=== PATIENT | female | born 1985 | race Caucasian/White ===

== ENCOUNTER 2017-09-14 10:08 | Emergency (ER) | payer OTHER ==
[2017-09-14] MEDS ORDERED: ALBUTEROL 2.5 MG/3 ML NEB SOL ONE (10:42)
[2017-09-14] MEDS ORDERED: IPRATROPIUM BROM 0.5MG/2.5ML ONE (10:43)
--- NOTE | 2017-09-14 11:10 | EKG ---
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
--- NOTE | 2017-09-14 11:47 | RAD REPORT ---
EXAM DESCRIPTION: RAD - Chest Pa And Lat (2 Views) - 09/14/2017 11:38 am CLINICAL HISTORY: COUGH Chest pain. COMPARISON: Chest Pa And Lat (2 Views) dated 04/04/2017; Chest Pa And Lat (2 Views) dated 03/31/2017; C hest Pa And Lat (2 Views) dated 08/20/2016; Chest Pa And Lat (2 Views) dated 05/29/2016 FINDINGS: The lungs are clear. The heart is normal in size. No displaced fractures. Mild thoracic sc oliosis. IMPRESSION: No acute finding suspected.
--- NOTE | 2017-09-14 11:58 | EDPHYS ---
Physician Documentation [facility] Name: Jenn Horan Age: 32 yrs Sex: Female : 1985 Arrival Date: 09/14/2017 Time: 10:10 Bed 20 Private MD: out of town, doctor ED Physician Yonny Dooley HPI: 09/14 10:46 This 32 yrs old Female presents to ER via Ambulatory with complaints of jr8 Congestion, Asthma Exacerbation. 10:46 The patient or guardian reports cough, that is intermittent, described as mild, with no jr8 sputum, difficulty breathing. Onset: The symptoms/episode began/occurred gradually, 1 week(s) ago. Severity of symptoms: At their worst the symptoms were mild, in the emergency department the symptoms are unchanged. Modifying factors: The symptoms are alleviated by nothing, the symptoms are aggravated by nothing. Associated signs and symptoms: Pertinent positives: chest pain, with cough, rhinorrhea, sore throat. It is unknown whether or not the patient has had similar symptoms in the past. The patient has not recently seen a physician. Has tried multiple OTC medications without relief . 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 - Social history:: Smoking status: Patient/guardian denies using tobacco. - Ebola Screening: : No symptoms or risks identified at this time. ROS: 10:46 Eyes: Negative for injury, pain, redness, and discharge, Neck: Negative for injury, jr8 pain, and swelling, Cardiovascular: Negative for chest pain, palpitations, and edema, Abdomen/GI: Negative for abdominal pain, nausea, vomiting, diarrhea, and constipation, Back: Negative for injury and pain, MS/Extremity: Negative for injury and deformity, Skin: Negative for injury, rash, and discoloration, Neuro: Negative for headache, weakness, numbness, tingling, and seizure. 10:46 ENT: Positive for rhinorrhea, sinus congestion, sore throat, Negative for drainage from ear(s), ear pain, nasal discharge, difficulty swallowing, difficulty handling secretions, hoarseness. 10:46 Respiratory: Positive for cough, wheezing, Negative for hemoptysis, orthopnea, pleurisy. Exam: 10:46 Eyes: Pupils equal round and reactive to light, extra-ocular motions intact. Lids and jr8 lashes normal. Conjunctiva and sclera are non-icteric and not injected. Cornea within normal limits. Periorbital areas with no swelling, redness, or edema. ENT: Nares patent. No nasal discharge, no septal abnormalities noted. Tympanic membranes are normal and external auditory canals are clear. Oropharynx with no redness, swelling, or masses, exudates, or evidence of obstruction, uvula midline. Mucous membranes moist. Neck: Trachea midline, no thyromegaly or masses palpated, and no cervical lymphadenopathy. Supple, full range of motion without nuchal rigidity, or vertebral point tenderness. No Meningismus. Cardiovascular: Regular rate and rhythm with a normal S1 and S2. No gallops, murmurs, or rubs. Normal PMI, no JVD. No pulse deficits. Abdomen/GI: Soft, non-tender, with normal bowel sounds. No distension or tympany. No guarding or rebound. No evidence of tenderness throughout. Back: No spinal tenderness. No costovertebral tenderness. Full range of motion. Skin: Warm, dry with normal turgor. Normal color with no rashes, no lesions, and no evidence of cellulitis. MS/ Extremity: Pulses equal, no cyanosis. Neurovascular intact. Full, normal range of motion. Neuro: Awake and alert, GCS 15, oriented to person, place, time, and situation. Cranial nerves II-XII grossly intact. Motor strength 5/5 in all extremities. Sensory grossly intact. Cerebellar exam normal. Normal gait. 10:46 Respiratory: the patient does not display signs of respiratory distress, Respirations: normal, symetrical, no use of accessory muscles, no grunting, no evidence of nasal flaring, no prolonged exhalations, no pursed lip breathing, no retractions, no shallow respirations, no splinting, no tachypnea, Breath sounds: rhonchi, that are mild, are heard diffusely. Vital Signs: 10:15 BP 108 / 82; Pulse 106; Resp 18; Temp 98.2(O); Pulse Ox 98% ; Weight 92.99 kg; Height 5 sv ft. 8 in. (172.72 cm); 10:15 Body Mass Index 31.17 (92.99 kg, 172.72 cm) sv MDM: 10:19 Patient medically screened. jr8 11:56 Data reviewed: vital signs, nurses notes, EKG, radiologic studies, plain films, and as jr8 a result, I will discharge patient. Data interpreted: Pulse oximetry: on room air is 98 %. Interpretation: normal. Counseling: I had a detailed discussion with the patient and/or guardian regarding: the historical points, exam findings, and any diagnostic results supporting the discharge/admit diagnosis, radiology results, the need for outpatient follow up, a family practitioner, to return to the emergency department if symptoms worsen or persist or if there are any questions or concerns that arise at home. Response to treatment: the patient's symptoms have markedly improved after treatment. ED course: Patient with chronic asthma. Has been trying to get over bronchitis for over a week now. Will prescribe atrovent to add to her albuterol along with steroids and antibiotics . 09/14 10:32 Order name: XRAY Chest Pa And Lat (2 Views); Complete Time: 11:50 sg 09/14 10:32 Order name: EKG - Nurse/Tech; Complete Time: 10:44 sg 09/14 10:32 Order name: EKG; Complete Time: 10:32 sg Administered Medications: 10:44 Drug: Albuterol - atroVENT (3:1) (2.5 mg - 0.5 mg) 3 ml Route: Nebulizer; sg 11:20 Follow up: Response: No adverse reaction iw Disposition: 16:35 Co-signature as Attending Physician, Yonny Dooley MD. Chart complete. Chart complete. rn Disposition: 09/14/17 11:57 Discharged to Home. Impression: Acute bronchitis. - Condition is Stable. - Discharge Instructions: Acute Bronchitis. - Prescriptions for ipratropium- albuterol 0.5 mg-3 mg(2.5 mg base)/3 mL Inhalation solution for nebulization - inhale 3 milliliter by NEBULIZATION route 4 times per day; 1 box. Levaquin 500 mg Oral Tablet - take 1 tablet by ORAL route once daily for 7 days; 7 tablet. Prednisone 20 mg Oral Tablet - take 1 tablet by ORAL route once daily for 5 days; 5 tablet. - Medication Reconciliation Form, Thank You Letter, Antibiotic Education, Prescription Opioid Use form. - Follow up: Private Physician; When: 5 - 6 days; Reason: Recheck today's complaints, Continuance of care, Re-evaluation by your physician. - Problem is new. - Symptoms have improved. Signatures: Dispatcher [employer] EDHelene Mixon RN RN sv Gay, Steven, RN RN sg Williams, Irene, RN RN iw Nieto, Roman, MD MD rn Roszak, Josh, PA PA jr8 Corrections: (The following items were deleted from the chart) 12:22 11:57 09/14/2017 11:57 Discharged to Home. Impression: Acute bronchitis. Condition is iw Stable. Forms are Medication Reconciliation Form, Thank You Letter, Antibiotic Education, Prescription Opioid Use. Follow up: Private Physician; When: 5 - 6 days; Reason: Recheck today's complaints, Continuance of care, Re-evaluation by your physician. Problem is new. Symptoms have improved. jr8
--- NOTE | 2017-09-14 11:58 | ER ---
Nurse's Notes [facility] Name: Jenn Horan Age: 32 yrs Sex: Female : 1985 Arrival Date: 09/14/2017 Time: 10:10 Bed 20 Private MD: out of town, doctor Diagnosis: Acute bronchitis Presentation: 09/14 10:13 Presenting complaint: Mother states: sore throat started last week and started having sv congestion. Mother was treating with OTC med and not improving. Bilateral chest pain stated. c/o cough. Denies fever. Transition of care: patient was not received from another setting of care. Onset of symptoms was September 14, 2017. Risk Assessment: Do you want to hurt yourself or someone else? Patient reports no desire to harm self or others. Care prior to arrival: None. 10:13 Method Of Arrival: Ambulatory sv 10:13 Acuity: SVETLANA 3 sv 12:15 Initial Sepsis Screen: Does the patient meet any 2 criteria? No. Patient's initial iw sepsis screen is negative. Does the patient have a suspected source of infection? No. Patient's initial sepsis screen is negative. Triage Assessment: 12:15 General: Appears in no apparent distress. Behavior is calm, cooperative. Respiratory: iw Breath sounds are clear bilaterally. 12:15 Pain: Denies pain. iw PROTECTION MGR: 10:15 LMP N/A - Irregular menses sv Historical: - Allergies: 10:15 Biaxin; sv 10:15 Cefaclor; sv 10:15 hydromorphone HCl; sv 10:15 meperidine HCl; sv 10:15 Morphine; sv 10:15 NSAIDS (Non-Steroidal Anti-Inflammatory Drug); sv 10:15 PENICILLINS; sv - PMHx: 10:15 Asthma; Cerebral Palsy; Erythromyalgia; GERD; Hearing Loss; Incomplete R BBB; reactive sv airway; - PSHx: 10:15 Lobectomy; Appendectomy; Cholecystectomy; ovarian tumor surgery; Tonsillectomy; sv Adenoids; - Immunization history:: Adult Immunizations up to date. - Social history:: Smoking status: Patient/guardian denies using tobacco. - Ebola Screening: : No symptoms or risks identified at this time. Screenin:14 Abuse screen: Denies threats or abuse. Denies injuries from another. Nutritional iw screening: No deficits noted. Tuberculosis screening: No symptoms or risk factors identified. Fall Risk None identified. Assessment: 12:14 Reassessment: Patient appears in no apparent distress at this time. Patient and/or iw family updated on plan of care and expected duration. Pain level reassessed. Patient is alert, oriented x 3, equal unlabored respirations, skin warm/dry/pink. Patient states symptoms have improved. 12:15 Cardiovascular: Patient's skin is warm and dry. iw Vital Signs: 10:15 BP 108 / 82; Pulse 106; Resp 18; Temp 98.2(O); Pulse Ox 98% ; Weight 92.99 kg; Height 5 sv ft. 8 in. (172.72 cm); 10:15 Body Mass Index 31.17 (92.99 kg, 172.72 cm) sv ED Course: 10:10 Patient arrived in ED. mr 10:10 out of town, doctor is Private Physician. mr 10:14 Triage completed. sv 10:17 Arm band placed on right wrist. sv 10:19 Leonel Novak PA is PHCP. jr8 10:19 Yonny Dooley MD is Attending Physician. jr8 10:22 Zen Lowery, ELENA is Primary Nurse. sg 10:47 EKG done, by sound effects technician. reviewed by Leonel NEW. at1 11:33 X-ray completed. Patient tolerated procedure well. Patient moved back from radiology. ml 11:38 XRAY Chest Pa And Lat (2 Views) In Process Unspecified. EDMS 12:15 Patient has correct armband on for positive identification. iw 12:15 No provider procedures requiring assistance completed. Patient did not have IV access iw during this emergency room visit. Administered Medications: 10:44 Drug: Albuterol - atroVENT (3:1) (2.5 mg - 0.5 mg) 3 ml Route: Nebulizer; sg 11:20 Follow up: Response: No adverse reaction iw Outcome: 11:57 Discharge ordered by . jr8 12:14 Discharged to home ambulatory, with family. iw 12:14 Condition: good 12:14 Discharge instructions given to family, Instructed on discharge instructions, follow up and referral plans. medication usage, Demonstrated understanding of instructions, follow-up care, medications, Prescriptions given X 3. 12:22 Patient left the ED. iw Signatures: Dispatcher MedThe [facility] Helene Barrera RN RN Zen Mills, RN RN sg Gavin, Katina mr Isai, Mary, RN ELENA Rowley, Leonel Lee PA PA [facility] Amina blandon, [facility] EK Tat1
[2017-09-14 12:26] VITALS: BP 108/82; TEMP 98.2; O2SAT 98
== END 2017-09-14 12:22 | disposition home or self-care (01) ==
LOC: ER 10:08
DX: J45.909 Unspecified asthma, uncomplicated (principal); Z88.0 Allergy status to penicillin; Z88.5 Allergy status to narcotic agent; Z88.6 Allergy status to analgesic agent; Z88.8 Allergy status to other drugs, medicaments and biological substances
CPT/HCPCS: 71046; 93005; 94640; 99284

== ENCOUNTER 2017-11-04 10:43 | Emergency (ER) | payer OTHER ==
--- NOTE | 2017-11-04 12:09 | ER ---
Nurse's Notes [facility] Name: Jenn Horan Age: 32 yrs Sex: Female : 1985 Arrival Date: 11/04/2017 Time: 10:45 Bed 8 Private MD: out of town, doctor Diagnosis: Cellulitis of the right lower leg Presentation: 11/04 11:00 Presenting complaint: Patient states: Right lower leg pain and swelling x 3 days. hb Denies fever. Transition of care: patient was not received from another setting of care. Onset of symptoms was November 02, 2017. Risk Assessment: Do you want to hurt yourself or someone else? Patient reports no desire to harm self or others. Care prior to arrival: None. 11:00 Method Of Arrival: Wheelchair hb 11:00 Acuity: SVETLANA 3 hb 11:10 Initial Sepsis Screen: Does the patient meet any 2 criteria? No. Patient's initial sv sepsis screen is negative. Does the patient have a suspected source of infection? No. Patient's initial sepsis screen is negative. Historical: - Allergies: 11:01 Biaxin; hb 11:01 Cefaclor; hb 11:01 hydromorphone HCl; hb 11:01 meperidine HCl; hb 11:01 Morphine; hb 11:01 NSAIDS (Non-Steroidal Anti-Inflammatory Drug); hb 11:01 PENICILLINS; hb - PMHx: 11:01 Asthma; Cerebral Palsy; Erythromyalgia; GERD; Hearing Loss; Incomplete R BBB; reactive hb airway; 11:08 Erythromelalgia; hb - PSHx: 11:01 Lobectomy; Appendectomy; Cholecystectomy; ovarian tumor surgery; hb - Immunization history:: Adult Immunizations up to date. - Social history:: Smoking status: Patient/guardian denies using tobacco. - Ebola Screening: : No symptoms or risks identified at this time. Screenin:02 Abuse screen: Denies threats or abuse. Denies injuries from another. Nutritional hb screening: No deficits noted. Tuberculosis screening: No symptoms or risk factors identified. Fall Risk Total Mckeon Fall Scale indicates Low Risk Score (25-44 pts). Fall prevention measures have been instituted. Side Rails Up X 2 Frequent Obs/Assesments occuring Family Present and informed to notify staff if they need to leave bedside As available Patient and Family Educated on Fall Prevention Program and strategies. Assessment: 11:10 General: Appears in no apparent distress. uncomfortable, well developed, Behavior is sv calm, cooperative, appropriate for age. Pain: Complains of pain in right leg Pain currently is 7 out of 10 on a pain scale. Neuro: Level of Consciousness is awake, alert, obeys commands, Oriented to person, place, time, situation, Moves all extremities. Full function. Respiratory: Respiratory effort is even, unlabored, Respiratory pattern is regular, symmetrical. Derm: Skin is pink, warm \T\ dry. Musculoskeletal: Range of motion: intact in all extremities, Swelling present in right leg. 12:29 Reassessment: Patient appears in no apparent distress at this time. No changes from sv previously documented assessment. Patient and/or family updated on plan of care and expected duration. Pain level reassessed. Patient is alert, oriented x 3, equal unlabored respirations, skin warm/dry/pink. Vital Signs: 11:00 BP 128 / 75; Pulse 68; Resp 15; Temp 98.2; Pulse Ox 100% on R/A; Pain 7/10; hb ED Course: 10:45 Patient arrived in ED. sb2 10:45 out of town, doctor is Private Physician. sb2 10:54 Ashok Brito PA is PHCP. jmm 10:54 Yonny Dooley MD is Attending Physician. m 11:00 Triage completed. hb 11:01 Arm band placed on right wrist. hb 11:07 Helene Barrera, RN is Primary Nurse. sv 11:07 Patient has correct armband on for positive identification. Bed in low position. Adult sv w/ patient. 12:18 Extremity Venous Uni Ltd US In Process Unspecified. EDMS 12:18 Ultrasound completed. Patient tolerated well. sg3 12:29 No provider procedures requiring assistance completed. Patient did not have IV access sv during this emergency room visit. Administered Medications: No medications were administered Outcome: 12:09 Discharge ordered by . jm 12:32 Discharged to home via wheelchair, with family. sv 12:32 Condition: stable 12:32 Discharge instructions given to patient, family, Instructed on discharge instructions, follow up and referral plans. medication usage, Demonstrated understanding of instructions, follow-up care, medications, Prescriptions given X 1. 12:32 Patient left the ED. sv Signatures: Dispatcher [employer] EDMS Holly, Helene, RN RN Ashok Hairston PA PA jmm Baxter, Heather, ELENA RN Ashley Ross 3 Jackelyn Gutierrez 2
--- NOTE | 2017-11-04 12:09 | EDPHYS ---
Physician Documentation [facility] Name: Jenn Horan Age: 32 yrs Sex: Female : 1985 Arrival Date: 11/04/2017 Time: 10:45 Bed 8 Private MD: out of town, doctor ED Physician Yonny Dooley HPI: 11/04 11:14 This 32 yrs old Female presents to ER via Wheelchair with complaints of Leg jmm Swelling, Leg Pain. 11:14 The patient presents with pain, that is acute, swelling. The complaints affect the jmm posterior aspect of right knee, right calf and right Achilles. Onset: The symptoms/episode began/occurred today. This is a 32 year old female with a history of asthma, cerebral palsy, erythromyalgia, that presents to the ED with right lower leg pain and swelling. Mother states the patient elevated her leg which relieved symptoms. Patient is currently taking plavix. Denies fever or shortness of breath. Historical: - Allergies: 11:01 Biaxin; hb 11:01 Cefaclor; hb 11:01 hydromorphone HCl; hb 11:01 meperidine HCl; hb 11:01 Morphine; hb 11:01 NSAIDS (Non-Steroidal Anti-Inflammatory Drug); hb 11:01 PENICILLINS; hb - PMHx: 11:01 Asthma; Cerebral Palsy; Erythromyalgia; GERD; Hearing Loss; Incomplete R BBB; reactive hb airway; 11:08 Erythromelalgia; hb - PSHx: 11:01 Lobectomy; Appendectomy; Cholecystectomy; ovarian tumor surgery; hb - Immunization history:: Adult Immunizations up to date. - Social history:: Smoking status: Patient/guardian denies using tobacco. - Ebola Screening: : No symptoms or risks identified at this time. ROS: 11:14 Constitutional: Negative for fever, chills, and weight loss, Cardiovascular: Negative jmm for chest pain, palpitations, and edema, Respiratory: Negative for shortness of breath, cough, wheezing, and pleuritic chest pain. 11:14 MS/extremity: Positive for swelling. 11:14 Skin: Positive for swelling. 11:14 All other systems are negative. Exam: 11:14 Head/Face: atraumatic. Chest/axilla: Normal chest wall appearance and motion. jmm Cardiovascular: Regular rate and rhythm. No edema appreciated Respiratory: Normal respirations, no respiratory distress appreciated 11:14 Constitutional: The patient appears in no acute distress, alert, awake. 11:14 Musculoskeletal/extremity: swelling noted to the right and left lower legs bilaterally. full dorsalis pulse appreciate, compartments are soft, NVI. 11:14 Skin: mild erythema noted to the right lower leg. 11:14 Neuro: Orientation: is normal, Mentation: is normal, Memory: is normal. 11:14 Psych: Behavior/mood is pleasant, cooperative. Vital Signs: 11:00 BP 128 / 75; Pulse 68; Resp 15; Temp 98.2; Pulse Ox 100% on R/A; Pain 7/10; hb MDM: 11:03 Patient medically screened. warner 12:08 Data reviewed: vital signs, nurses notes, radiologic studies, ultrasound. Data warner reviewed: radiologic studies. Counseling: I had a detailed discussion with the patient and/or guardian regarding: the historical points, exam findings, and any diagnostic results supporting the discharge/admit diagnosis, radiology results, the need for outpatient follow up, to return to the emergency department if symptoms worsen or persist or if there are any questions or concerns that arise at home. 12:08 ED course: Due to swelling with erythema, symptoms are concerning for cellulitis. warner Patient put on oral outpatient antibiotics. Mother given strict return precautions. Mother understood and agrees with the plan of care. . 08 11:04 Order name: Extremity Venous Uni Ltd [facility] Administered Medications: No medications were administered Disposition: 14:39 Co-signature as Attending Physician, Yonny Dooley MD. rn Disposition: 11/04/17 12:09 Discharged to Home. Impression: Cellulitis of the right lower leg. - Condition is Stable. - Discharge Instructions: Cellulitis, Adult. - Prescriptions for Bactrim DS 800- 160 mg Oral Tablet - take 1 tablet by ORAL route every 12 hours for 7 days; 14 tablet. - Medication Reconciliation Form, Thank You Letter, Antibiotic Education, Prescription Opioid Use form. - Follow up: Private Physician; When: 2 - 3 days; Reason: Recheck today's complaints, Continuance of care, Re-evaluation by your physician. Signatures: Dispatcher [employer] Helene Aj RN RN sv Mickail, Joel, PA PA jmm Nieto, Roman, MD MD rn Baxter, Heather, RN RN Corrections: (The following items were deleted from the chart) 12:32 12:09 11/04/2017 12:09 Discharged to Home. Impression: Cellulitis of the right lower sv leg. Condition is Stable. Forms are Medication Reconciliation Form, Thank You Letter, Antibiotic Education, Prescription Opioid Use. Follow up: Private Physician; When: 2 - 3 days; Reason: Recheck today's complaints, Continuance of care, Re-evaluation by your physician. warner
[2017-11-04 12:37] VITALS: BP 128/75; TEMP 98.2; O2SAT 100
--- NOTE | 2017-11-04 12:44 | RAD REPORT ---
EXAM DESCRIPTION: VAS - Extremity Venous Uni Ltd - 11/04/2017 12:18 pm CLINICAL HISTORY: Right lower extremity pain COMPARISON: None. TECHNIQUE: Real-time sonographic evaluation of the right lower extremity deep venous systems was per formed. FINDINGS: Normal compressibility, flow augmentation, phasic flow and spontaneous flow are identified in the right lower extremity common femoral, superficial femoral, popliteal and posterior tibial vei ns. No intraluminal filling defects seen. IMPRESSION: No DVT in the right lower extremity.
== END 2017-11-04 12:32 | disposition home or self-care (01) ==
LOC: ER 10:43
DX: L03.115 Cellulitis of right lower limb (principal); G80.9 Cerebral palsy, unspecified; Z88.0 Allergy status to penicillin; Z88.1 Allergy status to other antibiotic agents; Z88.5 Allergy status to narcotic agent; Z88.6 Allergy status to analgesic agent; Z88.8 Allergy status to other drugs, medicaments and biological substances
CPT/HCPCS: 93971; 99283

== ENCOUNTER 2018-03-29 17:25 | Emergency (ER) | payer OTHER ==
--- NOTE | 2018-03-29 20:47 | ER ---
Nurse's Notes [facility] Name: Jenn Horan Age: 33 yrs Sex: Female : 1985 Arrival Date: 03/29/2018 Time: 17:26 Bed 12 Private MD: out of town, doctor Diagnosis: Sinusitis Presentation: 03/29 17:37 Presenting complaint: Mother states: she had a cold for a week now, nasal congestion, hj denies fever; denies N/V; reports headache;. Transition of care: patient was not received from another setting of care. Resp Distress? No respiratory distress is noted at this time. Onset of symptoms was March 29, 2018. Risk Assessment: Do you want to hurt yourself or someone else? Patient reports no desire to harm self or others. Initial Sepsis Screen: Does the patient meet any 2 criteria? No. Patient's initial sepsis screen is negative. Does the patient have a suspected source of infection? No. Patient's initial sepsis screen is negative. Care prior to arrival: None. 17:37 Method Of Arrival: Ambulatory 17:37 Acuity: SVETLANA 4 hj Triage Assessment: 17:40 General: Appears in no apparent distress. uncomfortable, Behavior is calm, cooperative, hj appropriate for age. Pain: Complains of pain in head. 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 Historical: - Allergies: 17:40 Biaxin; hj 17:40 Cefaclor; hj 17:40 hydromorphone HCl; hj 17:40 meperidine HCl; hj 17:40 Morphine; hj 17:40 NSAIDS (Non-Steroidal Anti-Inflammatory Drug); hj 17:40 PENICILLINS; hj - Home Meds: 17:40 Abilify Oral [Active]; Miralax Oral [Active]; Plavix Oral [Active]; Prozac Oral hj [Active]; - PMHx: 17:40 Asthma; Cerebral Palsy; Erythromelalgia; GERD; Hearing Loss; Incomplete R BBB; reactive hj airway; - PSHx: 17:40 part of right lung removed; Adenoids; Tonsillectomy; tumor removed from ovary; hj Cholecystectomy; Appendectomy; - Immunization history:: Adult Immunizations up to date. - Social history:: Smoking status: Patient/guardian denies using tobacco, Patient/guardian denies using alcohol. - Ebola Screening: : Patient negative for fever greater than or equal to 101.5 degrees Fahrenheit, and additional compatible Ebola Virus Disease symptoms Patient denies exposure to infectious person Patient denies travel to an Ebola-affected area in the 21 days before illness onset. Screenin:40 Abuse screen: Denies threats or abuse. Denies injuries from another. Nutritional hj screening: No deficits noted. Tuberculosis screening: No symptoms or risk factors identified. Fall Risk None identified. Assessment: 17:40 Cardiovascular: Capillary refill < 3 seconds Patient's skin is warm and dry. hj 20:55 General: Appears in no apparent distress. comfortable, Behavior is calm, cooperative, aj1 appropriate for age. Pain: Complains of pain in face. Neuro: Level of Consciousness is awake, alert, obeys commands, Oriented to person, place, time, situation. Cardiovascular: Patient's skin is warm and dry. Respiratory: Airway is patent Respiratory effort is even, unlabored, Respiratory pattern is regular, symmetrical, Breath sounds are clear bilaterally. GI: No signs and/or symptoms were reported involving the gastrointestinal system. : No signs and/or symptoms were reported regarding the genitourinary system. EENT: Reports nasal congestion nasal discharge. Derm: No signs and/or symptoms reported regarding the dermatologic system. Skin is pink, warm \T\ dry. normal. Musculoskeletal: No signs and/or symptoms reported regarding the musculoskeletal system. Circulation, motion, and sensation intact. Vital Signs: 17:40 BP 115 / 77; Pulse 82; Resp 18; Temp 97.6(O); Pulse Ox 99% on R/A; Weight 81.65 kg; hj Height 5 ft. 8 in. (172.72 cm); Pain 7/10; 17:40 Body Mass Index 27.37 (81.65 kg, 172.72 cm) ED Course: 17:26 Patient arrived in ED. mr 17:27 out of town, doctor is Private Physician. mr 17:39 Triage completed. hj 17:40 Arm band placed on left wrist. hj 17:42 Patient has correct armband on for positive identification. Bed in low position. Call light in reach. Side rails up X 1. 19:39 Delicia Albarran RN is Primary Nurse. aj1 19:44 Bubba Escobedo MD is Attending Physician. pkl 20:55 No provider procedures requiring assistance completed. Patient did not have IV access aj1 during this emergency room visit. Administered Medications: 20:54 Drug: Zithromax 500 mg Route: PO; aj1 20:54 Follow up: Response: No adverse reaction aj1 Outcome: 20:47 Discharge ordered by . pkl 20:55 Discharged to home ambulatory, with family. aj1 20:55 Condition: good 20:55 Discharge instructions given to family, Instructed on discharge instructions, follow up and referral plans. medication usage, Demonstrated understanding of instructions, follow-up care, medications, Prescriptions given X 2. 20:56 Patient left the ED. aj1 Signatures: Delicia Albarran RN RN aj1 Bubba Escobedo MD MD pkl Rivera, Mary mr Joaquin, Henry, RN RN hj Corrections: (The following items were deleted from the chart) 17:42 17:40 Resp 18bpm; Pulse Ox 99% RA; Temp 97.6F Oral; 81.65 kg; Height 5 ft. 8 in.; BMI: hj 27.3; Pain 7/10; hj 17:44 17:40 Pulse 82bpm; Resp 18bpm; Pulse Ox 99% RA; Temp 97.6F Oral; 81.65 kg; Height 5 ft. hj 8 in.; BMI: 27.3; Pain 7/10; hj
--- NOTE | 2018-03-29 20:47 | EDPHYS ---
Physician Documentation [facility] Name: Jenn Horan Age: 33 yrs Sex: Female : 1985 Arrival Date: 03/29/2018 Time: 17:26 Bed 12 Private MD: out of town, doctor ED Physician Bubba Escobedo HPI: 03/29 20:42 This 33 yrs old Female presents to ER via Ambulatory with complaints of pkl Congestion, Headache. 20:43 The patient or guardian reports cough, described as mild, with no sputum, sinus pkl congestion. Onset: The symptoms/episode began/occurred 1 week(s) ago. Associated signs and symptoms: Pertinent positives: fever, sore throat. 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 hj Historical: - Allergies: 17:40 Biaxin; hj 17:40 Cefaclor; hj 17:40 hydromorphone HCl; hj 17:40 meperidine HCl; hj 17:40 Morphine; hj 17:40 NSAIDS (Non-Steroidal Anti-Inflammatory Drug); hj 17:40 PENICILLINS; hj - Home Meds: 17:40 Abilify Oral [Active]; Miralax Oral [Active]; Plavix Oral [Active]; Prozac Oral hj [Active]; - PMHx: 17:40 Asthma; Cerebral Palsy; Erythromelalgia; GERD; Hearing Loss; Incomplete R BBB; reactive hj airway; - PSHx: 17:40 part of right lung removed; Adenoids; Tonsillectomy; tumor removed from ovary; hj Cholecystectomy; Appendectomy; - Immunization history:: Adult Immunizations up to date. - Social history:: Smoking status: Patient/guardian denies using tobacco, Patient/guardian denies using alcohol. - Ebola Screening: : Patient negative for fever greater than or equal to 101.5 degrees Fahrenheit, and additional compatible Ebola Virus Disease symptoms Patient denies exposure to infectious person Patient denies travel to an Ebola-affected area in the 21 days before illness onset. ROS: 20:43 Eyes: Negative for injury, pain, redness, and discharge. pkl 20:43 ENT: Positive for nasal discharge, sinus congestion, sore throat. Exam: 20:43 Head/Face: Normocephalic, atraumatic. Eyes: Pupils equal round and reactive to light, pkl extra-ocular motions intact. Lids and lashes normal. Conjunctiva and sclera are non-icteric and not injected. Cornea within normal limits. Periorbital areas with no swelling, redness, or edema. 20:43 ENT: Posterior pharynx: erythema, that is mild. 20:43 Neck: Exam negative for nuchal rigidity. 20:43 Chest/axilla: Exam negative for acute changes. 20:43 Cardiovascular: Rate: normal, Rhythm: regular. 20:43 Respiratory: the patient does not display signs of respiratory distress, Respirations: normal, Breath sounds: are clear throughout. 20:43 Abdomen/GI: Exam negative for acute changes. 20:43 Back: Exam negative for acute changes. 20:43 : Exam negative for acute changes. 20:43 Musculoskeletal/extremity: Exam is negative for acute changes. 20:43 Skin: Exam negative for rash. 20:43 Neuro: Orientation: is normal, Mentation: is normal, Cranial nerves: grossly normal, Motor: is normal. Vital Signs: 17:40 BP 115 / 77; Pulse 82; Resp 18; Temp 97.6(O); Pulse Ox 99% on R/A; Weight 81.65 kg; hj Height 5 ft. 8 in. (172.72 cm); Pain 7/10; 17:40 Body Mass Index 27.37 (81.65 kg, 172.72 cm) MDM: 19:44 Patient medically screened. pkl 20:43 Data reviewed: vital signs, nurses notes, lab test result(s). pkl 03/29 17:42 Order name: Flu; Complete Time: 20:40 Administered Medications: 20:54 Drug: Zithromax 500 mg Route: PO; aj1 20:54 Follow up: Response: No adverse reaction aj1 Disposition: 03/29/18 20:47 Discharged to Home. Impression: Sinusitis. - Condition is Stable. - Prescriptions for Zithromax Z- Jordan 250 mg Oral Tablet - take 1 tablet by ORAL route as directed for 5 days Day 1 - take two (2) tablets one time. Day 2, 3, 4 , 5 take one (1) tablet once daily.; 6 tablet. - Medication Reconciliation Form, Thank You Letter, Antibiotic Education, Prescription Opioid Use form. - Follow up: Private Physician; When: 2 - 3 days; Reason: Re-evaluation by your physician. - Problem is new. - Symptoms have improved. Signatures: Dispatcher [employer] EDDelicia Rivera RN RN aj1 Bubba Escobedo MD MD pkl Michael Mays RN RN hj Corrections: (The following items were deleted from the chart) 20:56 20:47 03/29/2018 20:47 Discharged to Home. Impression: Sinusitis. Condition is Stable. aj1 Forms are Medication Reconciliation Form, Thank You Letter, Antibiotic Education, Prescription Opioid Use. Follow up: Private Physician; When: 2 - 3 days; Reason: Re-evaluation by your physician. Problem is new. Symptoms have improved. pkl
[2018-03-29] MEDS ORDERED: AZITHROMYCIN 250 MG TAB ONE (20:57)
[2018-03-29 21:01] VITALS: BP 115/77; TEMP 97.6; O2SAT 99
== END 2018-03-29 20:56 | disposition home or self-care (01) ==
LOC: ER 17:25
DX: J32.9 Chronic sinusitis, unspecified (principal); J45.909 Unspecified asthma, uncomplicated; K21.9 Gastro-esophageal reflux disease without esophagitis; Z88.0 Allergy status to penicillin; Z88.5 Allergy status to narcotic agent; Z88.6 Allergy status to analgesic agent; Z88.8 Allergy status to other drugs, medicaments and biological substances
CPT/HCPCS: 87804; 99283

== ENCOUNTER 2018-06-19 19:13 | Emergency (ER) | payer OTHER ==
[2011-08-04 15:08] VITALS: BP 112/80
--- NOTE | 2018-06-19 20:30 | ER ---
Nurse's Notes [facility] Name: Jenn Horan Age: 33 yrs Sex: Female : 1985 Arrival Date: 06/19/2018 Time: 19:16 Bed Waiting Private MD: out of town, doctor Diagnosis: ED Course: 06/19 19:16 Patient arrived in ED. es 19:16 out of town, doctor is Private Physician. es 19:54 Patient's name was called from ER lobby. No response. lp1 20:28 Patient's name was called from ER lobby. No response. lp1 Administered Medications: No medications were administered Outcome: 20:28 Eloped from waiting room, before seeing physician Time discovered patient gone: May at 20:29 20:30 Patient left the ED. lp1 Signatures: Le Hinkle Laura RN RN lp1
== END 2018-06-19 20:30 | disposition left against medical advice (07) ==
LOC: ER 19:13
DX: Z53.21 Procedure and treatment not carried out due to patient leaving prior to being seen by health care provider (principal)

== ENCOUNTER 2019-04-11 17:58 | Emergency (ER) | payer OTHER ==
--- OUTSIDE RECORDS SUMMARY | 2019-04-11 18:01 | XMS REPORT ---
:1985 [facility] [address] [place] [address] Care Team Providers Name Role Phone Unavailable Unavailable Unavailable Problems This patient has no known problems. Allergies, Adverse Reactions, Alerts This patient has no known allergies or adverse reactions. Medications This patient has no known medications. Encounters Start End Encounter Admission Attending Care Care Encounter Date/Time Date/Time Type Type Clinicians Facility Department ID 2018-12-08 2018-12-08 Inpatient E [facility] [id number] 20:00:00 11:53:00 2018-11-01 2018-10-31 Inpatient E [facility] [id number] 10:09:00 20:37:00
--- OUTSIDE RECORDS SUMMARY | 2019-04-11 18:02 | XMS REPORT | Summary of Care ---
:1985 Author Name Blanca Crane M.A. Address Unavailable Unavailable , Care Team Providers Name Role Phone MARILIA Abbott, MARINO Unavailable Unavailable NAHUM Abbott, BARBARA Unavailable Philippe VARGAS M.D., JOSELO Unavailable Unavailable Bethany MARX, Wendy Unavailable Unavailable ALICIA MARX, JOSELO Unavailable Unavailable PAO MARX LA, NATALIE Unavailable Unavailable HUGO MARX, ANABEL Unavailable Unavailable MARILIA MARX, MARINO Unavailable Unavailable Aislinn Abbott, Titus Unavailable Unavailable BETHANY Abbott, WENDY Unavailable Unavailable NAHUM MARX LA, BARBARA CHONG Unavailable Unavailable Unavailable Unavailable Unavailable Functional Status Name Dates Details Functional status health issues are not documented Status: Name Dates Details Cognitive status health issues are not documented Status: Problems Name Dates Details Normal routine physical examination (V70.0, Z00.00) Status: Active Esophageal reflux (530.81, K21.9) Status: Active Oligomenorrhea (626.1, N91.5) Status: Active Other signs and symptoms in breast (611.79, N64.59) Status: Active Hypertrophy of breast (611.1, N62) Status: Active Asthma (493.90, J45.909) Status: Active Auditory hallucinations (780.1, R44.0) Status: Active Arterial insufficiency (447.1, I77.1) Status: Active Scoliosis (737.30, M41.9) Status: Active Raynauds phenomenon (443.0, I73.00) Status: Active Cerebral palsy (343.9, G80.9) Status: Active Allergic rhinitis (477.9, J30.9) Status: Active Flu vaccine need (V04.81, Z23) Status: Active Special DrSukhjinder Services Analysis Of Computerized Data Status: Active Anxiety (300.00, F41.9) Status: Active Erythromelalgia (443.82, I73.81) Status: Active Essential (primary) hypertension (401.9, I10) Status: Active Heart block (426.9, I45.9) Status: Active Hyperlipidemia (272.4, E78.5) Status: Active Paroxysmal supraventricular tachycardia (427.0, I47.1) Status: Active Psychosis (298.9, F29) Status: Active Depression (311, F32.9) Status: Active Hematuria (599.70, R31.9) Status: Active Gross hematuria (599.71, R31.0) Status: Active Right ankle swelling (719.07, M25.471) Status: Active Palpitations (785.1, R00.2) Status: Active Schizoaffective disorder, depressive type (295.70, F25.1) Status: Active Mild intellectual disability (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 Start : 21-Sep-2011 Active Albuterol Sulfate (2.5 MG/3ML) 0.083% Inhalation Nebulization Solution USE 1 VIAL VIA NEBULIZER EVERY 4 HOURS NEEDED . Quantity: 180 Refills: 3 BARBARA SIDHU M.D. Start : 07-Nov-2011 Active FLUoxetine HCl - 20 MG Oral Capsule TAKE ONE CAPSULE BY MOUTH DAILY Quantity: 90 Refills: 1 JOSELO VARGAS M.D. Start : 02-Feb-2015 Active Abilify 10 MG Oral Tablet TAKE 1/2 TAB THREE TIMES DAILY AND 1/2 TAB AT BEDTIME NEEDED Quantity: 60 Refills: 5 JOSELO VARGAS M.D. Start : 02-Feb-2015 Active Plavix TABS Refills: 0 M.A.Active Nystatin-Triamcinolone 521841-1.1 UNIT/GM-% External Cream APPLY SPARINGLY TO AFFECTED AREA(S) TWICE DAILY Quantity: 1 Refills: 0 MARINO CAPELLAN M.D. Start : 31-Dec-2018 Active Fluconazole 150 MG Oral Tablet TAKE 1 TABLET 1 TIME ONLY. Quantity: 1 Refills: 0 MARINO CAPELLAN M.D. Start : 06-Jan-2019 Active Allergies and Adverse Reactions Name Dates Details Biaxin TABS (Allergy) Status: Active Ceclor CAPS (Allergy) Status: Active Cipro TABS (Allergy) Status: Active Demerol TABS (Allergy) Status: Active Diflucan TABS (Allergy) Status: Active Dilaudid TABS (Allergy) Status: Active Levaquin TABS (Allergy) Status: Active Morphine Derivatives (Allergy) Status: Active NSAIDs (Allergy) Status: Active Penicillins (Allergy) Status: Active Reglan (Allergy) Status: Active Past Medical History Name Dates Details Cerebral palsy (343.9, G80.9) Status: Active History of abdominal pain (V13.89, Z87.898) Status: Resolved History of Abdominal pain, RLQ (right lower quadrant) (789.03, R10.31) Status: Resolved History of Abdominal tenderness (789.60, R10.819) Status: Resolved History of Abnormal bleeding in menstrual cycle (626.9, N93.9) Status: Resolved History of acute bronchitis with bronchospasm (V12.69, Z87.09) Status: Resolved History of acute pyelonephritis (V13.02, Z87.440) Status: Resolved History of Acute recurrent sinusitis (461.9, J01.91) Status: Resolved History of amenorrhea (V13.29, Z87.42) Status: Resolved History of Anal or rectal pain (569.42, K62.89) Status: Resolved History of Asthma with acute exacerbation (493.92, J45.901) Status: Resolved History of Atypical face pain (350.2, G50.1) Status: Resolved History of bacterial pneumonia (V12.61, Z87.01) Status: Resolved History of Bartholin gland cyst (616.2, N75.0) Status: Resolved History of candidal vulvovaginitis (V13.29, Z86.19) Status: Resolved History of Chest pressure (786.59, R07.89) Status: Resolved 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, 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) Status: Resolved History of Cough (786.2, R05) Status: Resolved History of cystitis (V13.02, Z87.440) Status: Resolved History of dysmenorrhea (V13.29, Z87.42) Status: Resolved History of Extremity pain (729.5, M79.609) Status: Resolved History of fatigue (V13.89, Z87.898) Status: Resolved History of Foot pain (729.5, M79.673) Status: Resolved History of headache (V13.89, Z87.898) Status: Resolved History of heart block (V12.59, Z86.79) Status: Resolved History of influenza (V12.09, Z87.09) Status: Resolved History of Joint pain, hip (719.45, M25.559) Status: Resolved History of Left ear pain (388.70, H92.02) Status: Resolved History of Leg swelling (729.81, M79.89) Status: Resolved History of Limb swelling (729.81, M79.89) Status: Resolved History of Mental status change (780.97, R41.82) Status: Resolved History of Noninfectious diarrhea (787.91, K52.9) Status: Resolved History of Nonpuerperal Galactorrhea Of The Left Breast (611.6) Status: Resolved History of Onychomycosis of toenail (110.1, B35.1) Status: Resolved History of Pain, joint, ankle and foot (719.47, M25.579) Status: Resolved History of Pain, joint, shoulder (719.41, M25.519) Status: Resolved History of Pelvic pain in female (625.9, R10.2) Status: Resolved History of pharyngitis (V12.69, Z87.09) Status: Resolved History of Pre-operative general physical examination (V72.83, Z01.818) Status: Resolved History of pyelonephritis (V13.02, Z87.448) Status: Resolved History of Raynaud's syndrome (V12.59, Z86.79) Status: Resolved History of Rectal pain (569.42, K62.89) Status: Resolved History of Recurrent UTI (599.0, N39.0) Status: Resolved History of shortness of breath (V13.89, Z87.898) Status: Resolved History of Sore throat (462, J02.9) Status: Resolved History of Subacute and chronic vaginitis (616.10, N76.1) Status: Resolved History of Suprapubic pain (789.09, R10.2) Status: Resolved History of Urinary retention (788.20, R33.9) Status: Resolved History of urinary tract infection (V13.02, Z87.440) Status: Resolved History of UTI symptoms (788.99, R39.9) Status: Resolved History of UTI symptoms (788.99, R39.9) Status: Resolved History of vaginal bleeding (V13.29, Z87.42) Status: Resolved History of varicella (V12.09, Z86.19) Status: Resolved History of Viral intestinal infection (008.8, A08.4) Status: Resolved Procedures Procedure Dates Details Procedures not documented Immunization Name Dates Details Influenza #1 on: 25-Feb-2007 Lot #: [id number] Td on: 25-Feb-2007 Lot #: [id number] Influenza on: 31-Dec-2007 Lot #: [id number] Influenza on: 03-Dec-2009 Lot #: [id number] Influenza on: 19-Dec-2010 Lot #: [id number] Fluzone Quadrivalent 0.5 ML Intramuscular Suspension on: 13-Jan-2016 Lot #: [id number] Fluzone Quadrivalent 0.5 ML Intramuscular Suspension on: 02-Jan-2017 Lot #: [id number] Fluzone Quadrivalent 0.5 ML Intramuscular Suspension on: 30-Nov-2017 Lot #: [id number] Fluzone Quadrivalent 0.5 ML Intramuscular Suspension Prefilled Syringe on: Nov-2018 Lot #: [id number] Family History Name Dates Details Family history of Hypertension (V17.49) Comments: Family History Status: Active Name Dates Details Family history of rheumatoid arthritis (V17.7, Z82.61) Status: Active Name Dates Details Family history of hypertension (V17.49, Z82.49) Status: Active Social History Name Dates Details - Status: Name Dates Details Never smoker Never smoker Never smoker Never smoker Vital Signs Date Test Result Details No Known Vitals to report Results Date Description Value Details Results not documented Plan of Care Name Dates Details Planned Observations Planned Goals not documented Planned Encounters Appointment; ABIEL HALL NP On: 08-Apr-2019 13:00 Appointment; JOSELO VARGAS M.D. On: 29-Apr-2019 11:00 Instructions Name Dates Details Instructions not documented Encounters Appointment; JOSELO VARGAS M.D. On: 24-Apr-2017 12:00 Encounter Diagnosis: Problem not documented Appointment; JOSELO VARGAS M.D. On: 26-Jun-2017 13:30 Encounter Diagnosis: Problem not documented Appointment; BARBARA SIDHU M.D. On: 27-Jul-2017 10:30 Encounter Diagnosis: Problem not documented Appointment; JORDI WONG M.D. On: 06-Aug-2017 10:40 Encounter Diagnosis: Problem not documented Appointment; JOSELO VARGAS M.D. On: 06-Aug-2017 14:00 Encounter Diagnosis: Problem not documented Appointment; MARINO CAPELLAN M.D. On: 30-Aug-2017 10:00 Encounter Diagnosis: Problem not documented Appointment; JOSELO VARGAS M.D. On: 06-Nov-2017 12:00 Encounter Diagnosis: Problem not documented Appointment; JOSELO VARGAS M.D. On: 21-Nov-2017 11:00 Encounter Diagnosis: Problem not documented Appointment; BARBARA SIDHU M.D. On: 30-Nov-2017 13:00 Encounter Diagnosis: Problem not documented Appointment; KARINE SCHMIDT M.D. On: 26-Dec-2017 14:30 Encounter Diagnosis: Problem not documented Appointment; JOSELO VARGAS M.D. On: 19-Feb-2018 11:30 Encounter Diagnosis: Problem not documented Appointment; JOSELO VARGAS M.D. On: 19-Feb-2018 11:30 Encounter Diagnosis: Problem not documented Appointment; JOSELO VARGAS M.D. On: 06-Mar-2018 12:00 Encounter Diagnosis: Problem not documented Appointment; JOSELO VARGAS M.D. On: 23-Apr-2018 13:00 Encounter Diagnosis: Problem not documented Appointment; JORDI WONG M.D. On: 09-Sep-2018 9:20 Encounter Diagnosis: Problem not documented Appointment; BARBARA SIDHU M.D. On: 26-Nov-2018 10:30 Encounter Diagnosis: Problem not documented Appointment; MAXWELL LINDSEY-INVASIVE On: 26-Nov-2018 13:30 Encounter Diagnosis: Problem not documented Appointment; JOSELO VARGAS M.D. On: 27-Nov-2018 10:30 Encounter Diagnosis: Problem not documented Appointment; NATALIE CEDENO M.D. On: 27-Nov-2018 13:45 Encounter Diagnosis: Problem not documented Appointment; [facility] On: 20-Dec-2018 11:30 Encounter Diagnosis: Problem not documented Appointment; ABIEL HALL NP On: 25-Dec-2018 13:30 Encounter Diagnosis: Problem not documented Appointment; MARINO CAPELLAN M.D. On: 31-Dec-2018 15:00 Encounter Diagnosis: Problem not documented Appointment; ANABEL ARIAS M.D. On: 26-Feb-2019 10:30 Encounter Diagnosis: Problem not documented
--- NOTE | 2019-04-11 19:46 | ER ---
Nurse's Notes [facility] Name: Jenn Horan Age: 34 yrs Sex: Female : 1985 Arrival Date: 04/11/2019 Time: 18:01 Bed Waiting Private MD: out of town, doctor Diagnosis: Presentation: 04/11 18:44 Presenting complaint: Mother states: "its been going on for several days its just worse aj1 today, she's had since last Sunday her back hurting and we've been treating it a muscles and now its lower back all the way around to her left lower belly, and she's having intermittent vaginal bleeding, she has recurrent UTIs and also history of hemorrhagic cysts.". Transition of care: patient was not received from another setting of care. Onset of symptoms was 2019. Risk Assessment: Do you want to hurt yourself or someone else? Patient reports no desire to harm self or others. Initial Sepsis Screen: Does the patient meet any 2 criteria? No. Patient's initial sepsis screen is negative. Does the patient have a suspected source of infection? No. Patient's initial sepsis screen is negative. Care prior to arrival: None. 18:44 Method Of Arrival: Ambulatory aj1 18:44 Acuity: SVETLANA 3 aj1 19:06 Note Patient's mother notified registration staff that they are leaving because they aj1 don't want to sit in the waiting room any longer. Triage Assessment: 18:46 General: Appears in no apparent distress. comfortable, Behavior is calm, cooperative, aj1 appropriate for age. Pain: Pain currently is 7 out of 10 on a pain scale. Neuro: Level of Consciousness is awake, alert, obeys commands. Cardiovascular: Patient's skin is warm and dry. Respiratory: Airway is patent Respiratory effort is even, unlabored, Respiratory pattern is regular, symmetrical. GI: Reports lower abdominal pain. 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 - Social history:: Smoking status: Patient/guardian denies using tobacco. - Ebola Screening: : Patient denies travel to an Ebola-affected area in the 21 days before illness onset. Vital Signs: 18:46 BP 115 / 79; Pulse 84; Resp 18; Temp 98.6; Pulse Ox 98% on R/A; Weight 85.73 kg (R); aj1 Height 5 ft. 8 in. (172.72 cm) (R); Pain 7/10; 18:46 Body Mass Index 28.74 (85.73 kg, 172.72 cm) aj1 ED Course: 18:01 Patient arrived in ED. mr 18:01 out of town, doctor is Private Physician. mr 18:46 Triage completed. aj1 18:46 Arm band placed on Patient placed in waiting room, Patient notified of wait time. aj1 Administered Medications: No medications were administered Outcome: 19:44 Eloped from waiting room. aj1 19:45 Patient left the ED. aj1 Signatures: Delicia Albarran, RN RN aj1 China Alonso mr
[2019-04-11 20:14] VITALS: BP 115/79; TEMP 98.6; O2SAT 98
== END 2019-04-11 19:45 | disposition left against medical advice (07) ==
LOC: ER 17:58
DX: Z53.21 Procedure and treatment not carried out due to patient leaving prior to being seen by health care provider (principal)
CPT/HCPCS: 99281

== ENCOUNTER 2019-04-12 10:03 | Emergency (ER) | payer OTHER ==
--- OUTSIDE RECORDS SUMMARY | 2019-04-12 10:06 | XMS REPORT ---
:1985 [facility] [address] [place] [address] Care Team Providers Name Role Phone Unavailable Unavailable Unavailable Problems This patient has no known problems. Allergies, Adverse Reactions, Alerts This patient has no known allergies or adverse reactions. Medications This patient has no known medications. Encounters Start End Encounter Admission Attending Care Care Encounter Date/Time Date/Time Type Type Clinicians Facility Department ID 2018-12-08 2018-12-08 Inpatient E [facility] [id number] 20:00:00 11:53:00 2018-11-01 2018-10-31 Inpatient E [facility] [id number] 10:09:00 20:37:00
[2019-04-12 11:07] LABS: Absolute Lymphocytes (CBC) 0.8 K/uL (0.7-4.9); Basophils % 1.2 % (0-1.3); Hematocrit 35.4 % (36.0-45.0); Lymphocytes % 27.9 % (15.3-44.8); MPV 8.3 fL (7.6-11.3); RBC Red Blood Cell Count 4.01 M/uL (3.86-4.86)
[2019-04-12 11:26] LABS: ALT/SGPT 23 U/L (12-78); AST/SGOT 18 U/L (15-37); Albumin 3.7 g/dL (3.4-5.0); Alkaline Phosphatase 46 U/L (45-117); BUN Blood Urea Nitrogen 8 mg/dL (7-18); Bicarbonate 30 mmol/L (21-32); Bilirubin Direct < 0.1 mg/dL (0-0.2); Bilirubin Total 0.4 mg/dL (0.2-1.0); Glucose Level 97 mg/dL (74-106); Lipase 59 U/L (73-393); Protein, Total 6.9 g/dL (6.4-8.2); Sodium Level 141 mmol/L (136-145)
[2019-04-12 11:35] LABS: White Blood Cell Scan OK
[2019-04-12 11:36] LABS: Blood Morphology Comment NOT SEEN (NOT SEEN); Platelet Estimate ADEQ
[2019-04-12] MEDS ORDERED: NA CHLORIDE 0.9% 1,000 ML ONE (11:50)
[2019-04-12 12:12] LABS: Urine Bacteria <20 /HPF (<20); Urine RBC <5 /HPF (NONE SEEN)
[2019-04-12 12:19] LABS: Urine Blood 1+ (NEG); Urine Glucose NEGATIVE (NEG); Urine Protein NEGATIVE (NEG)
--- NOTE | 2019-04-12 12:34 | RAD REPORT ---
EXAM DESCRIPTION: CTAbdomen Pelvis W Contrast - 04/12/2019 12:19 pm CLINICAL HISTORY: Abdominal pain. dysuria;Flank pain COMPARISON: CT ABD PELVIS W CONTRAST dated 07/21/2014; CT ABD PELVIS W CONTRAST dated 07/18/2014 TECHNIQUE: Biphasic CT imaging of the abdomen and pelvis was performed with 100 ml non-ionic IV cont rast. All CT scans are performed using dose optimization technique as appropriate and may include automated exposure control or mA/KV adjustment according to patient size. FINDINGS: The lung bases are clear. The liver, spleen, pancreas, adrenal glands and kidneys are within normal limits. No bowel obstruction, free air, free fluid or abscess. Appendectomy. No evidence of significant lym phadenopathy. 35 mm right ovarian follicle or cyst. No suspicious bony findings. IMPRESSION: No acute intra-abdominal or pelvic finding.
--- NOTE | 2019-04-12 13:21 | ER ---
Nurse's Notes [facility] Name: Jenn Horan Age: 34 yrs Sex: Female : 1985 Arrival Date: 04/12/2019 Time: 10:04 Bed 25 Private MD: Diagnosis: Unspecified abdominal pain;Unspecified ovarian cysts Presentation: 04/12 10:22 Presenting complaint: Presenting complaint: Mother states: Left flank pain since aj1 Sunday, she has also had some intermittent vaginal bleeding. Patient has a history of frequent UTI, some of which she has had to be hospitalized for, and hemorrhagic cysts. Reports that patient's urine this morning was dark, she tested it for UTI with a home testing kit and it was positive. 10:22 Transition of care: patient was not received from another setting of care. Onset of aj1 symptoms was April 12, 2019. Risk Assessment: Do you want to hurt yourself or someone else? Patient reports no desire to harm self or others. Initial Sepsis Screen: Does the patient meet any 2 criteria? No. Patient's initial sepsis screen is negative. Does the patient have a suspected source of infection? Yes: Dysuria/Frequency/Urgency/UTI. Care prior to arrival: None. 10:22 Method Of Arrival: Ambulatory aj1 10:22 Acuity: SVETLANA 3 aj1 Triage Assessment: 10:26 General: Appears in no apparent distress. comfortable, Behavior is calm, cooperative, aj1 appropriate for age. Pain: Pain currently is 7 out of 10 on a pain scale. 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 - Social history:: Smoking status: Patient/guardian denies using tobacco. - Ebola Screening: : Patient denies travel to an Ebola-affected area in the 21 days before illness onset. Screenin:28 Abuse screen: Denies threats or abuse. Denies injuries from another. Nutritional aj1 screening: No deficits noted. Tuberculosis screening: No symptoms or risk factors identified. 13:47 Fall Risk None identified. aj1 Assessment: 10:28 General: Appears in no apparent distress. comfortable, Behavior is calm, cooperative, aj1 appropriate for age. Pain: Complains of pain in posterior aspect of left lateral abdomen and anterior aspect of left lateral abdomen Pain currently is 7 out of 10 on a pain scale. Neuro: Level of Consciousness is awake, alert, obeys commands, Oriented to person, place, time, situation. Cardiovascular: Patient's skin is warm and dry. Respiratory: Airway is patent Respiratory effort is even, unlabored, Respiratory pattern is regular, symmetrical. GI: No signs and/or symptoms were reported involving the gastrointestinal system. : Reports blood in urine, dark urine. EENT: No signs and/or symptoms were reported regarding the EENT system. Derm: No signs and/or symptoms reported regarding the dermatologic system. Skin is pink, warm \\T\\ dry. normal. Musculoskeletal: Circulation, motion, and sensation intact. 11:30 Reassessment: Patient appears in no apparent distress at this time. No changes from aj1 previously documented assessment. Patient and/or family updated on plan of care and expected duration. Pain level reassessed. Patient is alert, oriented x 3, equal unlabored respirations, skin warm/dry/pink. 12:30 Reassessment: Patient appears in no apparent distress at this time. No changes from aj1 previously documented assessment. Patient and/or family updated on plan of care and expected duration. Pain level reassessed. Patient is alert, oriented x 3, equal unlabored respirations, skin warm/dry/pink. 13:15 Reassessment: Patient appears in no apparent distress at this time. No changes from aj1 previously documented assessment. Patient and/or family updated on plan of care and expected duration. Pain level reassessed. Patient is alert/active/playful, equal unlabored respirations, skin warm/dry/pink. Vital Signs: 10:26 BP 106 / 68; Pulse 89; Resp 18; Temp 98.5; Pulse Ox 98% on R/A; Pain 7/10; aj1 11:30 BP 111 / 73; Pulse 67; Resp 18; Pulse Ox 100% on R/A; aj1 12:30 BP 109 / 71; Pulse 59; Resp 18; Pulse Ox 100% on R/A; aj1 ED Course: 10:04 Patient arrived in ED. rg4 10:13 Francisco Monge NP is PHCP. pm1 10:13 Ella Campos MD is Attending Physician. pm1 10:21 Delicia Albarran RN is Primary Nurse. aj1 10:24 Triage completed. aj1 10:26 Arm band placed on Patient placed in an exam room. aj1 10:28 Patient has correct armband on for positive identification. aj1 10:28 No provider procedures requiring assistance completed. aj1 11:00 Inserted saline lock: 20 gauge in left antecubital area, using aseptic technique. Blood aj1 collected. 11:45 Straight cath inserted, using sterile technique, Returned clear yellow urine. aj1 12:18 CT completed. Patient tolerated procedure well. Patient moved back from CT. bq 12:19 CT Abd/Pelvis - IV Contrast Only In Process Unspecified. EDMS 13:47 IV discontinued, intact, bleeding controlled, No redness/swelling at site. Pressure aj1 dressing applied. Administered Medications: 11:58 Drug: NS 0.9% 1000 ml Route: IV; Rate: 1000 ml; Site: left antecubital; aj1 Outcome: 13:20 Discharge ordered by MD. pm1 13:47 Discharged to home ambulatory, with family. aj1 13:47 Condition: good 13:47 Discharge instructions given to patient, family, Instructed on discharge instructions, follow up and referral plans. Demonstrated understanding of instructions, follow-up care. 13:48 Patient left the ED. aj1 Signatures: Dispatcher [employer] EDMS Delicia Albarran, ELENA RN aj1 Felisa Hays bq Francisco Monge NP TROUBLE LOCATER pm1 Emmy Hatch rg4 Corrections: (The following items were deleted from the chart) 10:24 10:22 Presenting complaint: aj1 aj1
--- NOTE | 2019-04-12 13:21 | EDPHYS ---
Physician Documentation [facility] Name: Jenn Horan Age: 34 yrs Sex: Female : 1985 Arrival Date: 04/12/2019 Time: 10:04 Bed 25 Private MD: ED Physician Ella Campos HPI: 04/12 10:35 This 34 yrs old Female presents to ER via Ambulatory with complaints of Blood pm1 In Urine, Flank Pain, Pelvic Pain. 20:26 The patient presents with urinary symptoms, hematuria, left flank pain. pm1 20:26 Onset: The symptoms/episode began/occurred 1 week(s) ago. Modifying factors: The pm1 symptoms are alleviated by nothing. Associated signs and symptoms: Pertinent negatives: constipation, diarrhea, fever, nausea, vomiting. The patient has experienced similar episodes in the past, a few times, mother is concerned that she might have a urinary tract infection. The patient has not recently seen a physician. Patient with vaginal bleeding for the past 22 day per mother. 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 - Social history:: Smoking status: Patient/guardian denies using tobacco. - Ebola Screening: : Patient denies travel to an Ebola-affected area in the 21 days before illness onset. ROS: 20:26 Positive for hematuria, vaginal bleeding. pm1 20:26 Constitutional: Negative for fever, chills, and weight loss, Neck: Negative for injury, pain, and swelling, Cardiovascular: Negative for chest pain, palpitations, and edema, Respiratory: Negative for shortness of breath, cough, wheezing, and pleuritic chest pain, Abdomen/GI: Negative for abdominal pain, nausea, vomiting, diarrhea, and constipation. 20:26 MS/Extremity: Negative for injury and deformity, Skin: Negative for injury, rash, and discoloration, Neuro: Negative for headache, weakness, numbness, tingling, and seizure. 20:26 Back: Positive for flank pain, on the left. 20:26 : Positive for hematuria, vaginal bleeding. Exam: 20:26 Constitutional: This is a well developed, well nourished patient who is awake, alert, pm1 and in no acute distress. Neck: Trachea midline, no thyromegaly or masses palpated, and no cervical lymphadenopathy. Supple, full range of motion without nuchal rigidity, or vertebral point tenderness. No Meningismus. Chest/axilla: Normal chest wall appearance and motion. Nontender with no deformity. No lesions are appreciated. Cardiovascular: Regular rate and rhythm with a normal S1 and S2. No gallops, murmurs, or rubs. Normal PMI, no JVD. No pulse deficits. Respiratory: Lungs have equal breath sounds bilaterally, clear to auscultation and percussion. No rales, rhonchi or wheezes noted. No increased work of breathing, no retractions or nasal flaring. Abdomen/GI: Soft, non-tender, with normal bowel sounds. No distension or tympany. No guarding or rebound. No evidence of tenderness throughout. 20:26 Skin: Warm, dry with normal turgor. Normal color with no rashes, no lesions, and no evidence of cellulitis. MS/ Extremity: Pulses equal, no cyanosis. Neurovascular intact. Full, normal range of motion. 20:26 Back: pain, that is very mild, of the left low back, normal spinal alignment noted. 20:26 Neuro: Orientation: is normal, Motor: is normal, moves all fours, Sensation: is normal, no obvious gross deficits. Vital Signs: 10:26 BP 106 / 68; Pulse 89; Resp 18; Temp 98.5; Pulse Ox 98% on R/A; Pain 7/10; aj1 11:30 BP 111 / 73; Pulse 67; Resp 18; Pulse Ox 100% on R/A; aj1 12:30 BP 109 / 71; Pulse 59; Resp 18; Pulse Ox 100% on R/A; aj1 MDM: 10:24 Patient medically screened. pm1 12:32 ED course: Informed patient and mother that urine sample via urine microscopy is all pm1 wnls. The mother requested urine culture due to history. 13:19 Data reviewed: vital signs. Data interpreted: Pulse oximetry: on room air is 100 %. pm1 Interpretation: normal. Counseling: I had a detailed discussion with the patient and/or guardian regarding: the historical points, exam findings, and any diagnostic results supporting the discharge/admit diagnosis, lab results, radiology results, the need for outpatient follow up, to return to the emergency department if symptoms worsen or persist or if there are any questions or concerns that arise at home. 04/12 10:34 Order name: Basic Metabolic Panel; Complete Time: 11:41 pm1 04/12 10:34 Order name: CBC with Diff; Complete Time: 11:41 pm04/12 10:34 Order name: Creatinine for Radiology; Complete Time: 11:41 pm04/12 10:34 Order name: Hepatic Function; Complete Time: 11:41 pm04/12 10:34 Order name: Lipase; Complete Time: 11:41 pm04/12 10:34 Order name: Urine Microscopic Only; Complete Time: 12:26 pm04/12 10:34 Order name: IV Saline Lock; Complete Time: 10:58 pm1 04/12 10:34 Order name: Labs collected and sent; Complete Time: 10:58 pm04/12 11:36 Order name: CBC Smear Scan; Complete Time: 11:41 EDGA 04/12 11:43 Order name: CT Abd/Pelvis - IV Contrast Only; Complete Time: 12:52 pm1 04/12 12:07 Order name: Urine Dipstick--Ancillary (enter results); Complete Time: 12:26 eb 04/12 12:07 Order name: Urine --Ancillary (enter results); Complete Time: 12:26 eb 04/12 10:34 Order name: Urine Dipstick-Ancillary (obtain specimen); Complete Time: 11:58 pm1 04/12 10:34 Order name: Straight Cath - Urine; Complete Time: 11:45 pm04/12 11:42 Order name: Urine Test (obtain specimen); Complete Time: 11:58 pm1 Administered Medications: 11:58 Drug: NS 0.9% 1000 ml Route: IV; Rate: 1000 ml; Site: left antecubital; aj1 Disposition: 15:26 Co-signature as Attending Physician, Ella Campos MD. ma2 Disposition: 04/12/19 13:20 Discharged to Home. Impression: Unspecified abdominal pain, Unspecified ovarian cysts. - Condition is Stable. - Discharge Instructions: Abdominal Pain, Adult, Ovarian Cyst. - Medication Reconciliation Form, Thank You Letter, Antibiotic Education, Prescription Opioid Use form. - Follow up: Emergency Department; When: As needed; Reason: Worsening of condition. Follow up: Private Physician; When: 2 - 3 days; Reason: Recheck today's complaints, Continuance of care, Re-evaluation by your physician. - Problem is new. - Symptoms have improved. Signatures: Dispatcher [employer] EDDelicia Rivera RN RN aj1 Francisco Monge, GREY GOODS EXAMINER GREY GOODS EXAMINER pm1 Ella Campos MD MD ne2 Corrections: (The following items were deleted from the chart) 13:48 13:20 04/12/2019 13:20 Discharged to Home. Impression: Unspecified abdominal pain; aj1 Unspecified ovarian cysts. Condition is Stable. Forms are Medication Reconciliation Form, Thank You Letter, Antibiotic Education, Prescription Opioid Use. Follow up: Emergency Department; When: As needed; Reason: Worsening of condition. Follow up: Private Physician; When: 2 - 3 days; Reason: Recheck today's complaints, Continuance of care, Re-evaluation by your physician. Problem is new. Symptoms have improved. pm1
[2019-04-12 13:53] VITALS: TEMP 98.5
[2019-04-12 13:54] VITALS: O2SAT 100
[2019-04-12 13:55] VITALS: BP 109/71
== END 2019-04-12 13:48 | disposition home or self-care (01) ==
LOC: ER 10:03
DX: N83.209 Unspecified ovarian cyst, unspecified side (principal); J45.909 Unspecified asthma, uncomplicated; G80.9 Cerebral palsy, unspecified; Z79.01 Long term (current) use of anticoagulants; Z88.0 Allergy status to penicillin; Z88.5 Allergy status to narcotic agent; Z88.6 Allergy status to analgesic agent; Z88.8 Allergy status to other drugs, medicaments and biological substances
CPT/HCPCS: 85025; 80048; 36415; 81025; 80076; 83690; 74177; 51702; 99284; Q9967; J7030; 81003; 81015

== ENCOUNTER 2019-07-21 22:10 | Emergency (ER) | payer OTHER ==
--- OUTSIDE RECORDS SUMMARY | 2019-07-21 22:15 | XMS REPORT ---
:1985 Author Organization [facility] t Address [address] [place] [address] Care Team Providers Name Role Phone ABIEL HALL, YAN Unavailable Unavailable BARBARA SIDHU M.D. Unavailable Unavailable JOSELO VARGAS M.D. Unavailable Unavailable ANABEL ARIAS M.D. Unavailable Unavailable FRED VERA M.D. Unavailable Unavailable ASHLEY CORONEL M.D. Unavailable Unavailable MARINO CAPELLAN M.D. Unavailable Unavailable MED PROVIDER, TCM Unavailable Unavailable NATALIE CEDENO M.D. Unavailable Unavailable HOLTER, NON-INVASIVE Unavailable Unavailable JORDI WONG M.D. Unavailable Unavailable KARINE SCHMIDT M.D. Unavailable Unavailable HIRAL ROBERSON, P.ASukhjinder Unavailable Unavailable BLANCA SCHMIDT M.D. Unavailable Unavailable RAGHAVENDRA JOHNSON M.D. Unavailable Unavailable ELIZABETH BALDWIN M.D. Unavailable Unavailable Titus Tao M.D. Unavailable Unavailable GABRIELLA LOMBARDO M.D. Unavailable Unavailable NASEEM NESBITT M.D. Unavailable Unavailable Problems Condition Condition Condition Status Onset Resolution Last Treatin g Comments Name Details Category Date Date Treatment Clinician Date History of History of Problem Resolve shortness shortness d of breath of breath History of History of Problem Resolve Abdominal Abdominal d pain, RLQ pain, RLQ (right (right lower lower quadrant) quadrant) History of History of Problem Resolve Abdominal Abdominal d tenderness tenderness History of History of Problem Resolve Abnormal Abnormal d bleeding in bleeding in menstrual menstrual cycle cycle History of History of Problem Resolve acute acute d bronchitis bronchitis with with bronchospas bronchospas m m History of History of Problem Resolve pyelonephri pyelonephri d tis tis History of History of Problem Resolve Acute Acute d recurrent recurrent sinusitis sinusitis History of History of Problem Resolve Anal or Anal or d rectal pain rectal pain History of History of Problem Resolve Asthma with Asthma with d acute acute exacerbatio exacerbatio n n History of History of Problem Resolve Atypical Atypical d face pain face pain History of History of Problem Resolve bacterial bacterial d pneumonia pneumonia History of History of Problem Resolve Bartholin Bartholin d gland cyst gland cyst History of History of Problem Resolve vaginal vaginal d bleeding bleeding History of History of Problem Resolve 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 History of History of Problem Resolve Cough Cough d History of History of Problem Resolve cystitis cystitis d History of History of Problem Resolve Extremity Extremity d pain pain History of History of Problem Resolve Foot pain Foot pain d History of History of Problem Resolve headache headache d History of History of Problem Resolve heart block heart block d History of History of Problem Resolve Joint pain, Joint pain, d hip hip History of History of Problem Resolve Left ear Left ear d pain pain History of History of Problem Resolve Leg Leg d swelling swelling History of History of Problem Resolve Limb Limb d swelling swelling History of History of Problem Resolve Mental Mental d status status change change History of History of Problem Resolve Noninfectio Noninfectio d us diarrhea us diarrhea History of History of Problem Resolve Onychomycos Onychomycos d is of is of toenail toenail History of History of Problem Resolve Pain, Pain, d joint, joint, ankle and ankle and foot foot History of History of Problem Resolve Pain, Pain, d joint, joint, shoulder shoulder History of History of Problem Resolve Pelvic pain Pelvic pain d in female in female History of History of Problem Resolve Pre-operati Pre-operati d ve general ve general physical physical examination examination History of History of Problem Resolve Raynaud's Raynaud's d syndrome syndrome History of History of Problem Resolve Rectal pain Rectal pain d Recurrent Recurrent Problem Active UTI UTI History of History of Problem Resolve Sore throat Sore throat d History of History of Problem Resolve Subacute Subacute d and chronic and chronic vaginitis vaginitis History of History of Problem Resolve Suprapubic Suprapubic d pain pain History of History of Problem Resolve Urinary Urinary d retention retention History of History of Problem Resolve varicella varicella d History of History of Problem Resolve Viral Viral d intestinal intestinal infection infection Normal Normal Problem Active routine routine physical physical examination examination Esophageal Esophageal Problem Active reflux reflux Oligomenorr Oligomenorr Problem Active hea hea Other signs Other signs Problem Active and and symptoms in symptoms in breast breast Hypertrophy Hypertrophy Problem Active of breast of breast Asthma Asthma Problem Active 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 cy Scoliosis Scoliosis Problem Active Raynauds Raynauds Problem Active phenomenon phenomenon Cerebral Cerebral Problem Active palsy palsy Allergic Allergic Problem Active rhinitis rhinitis Flu vaccine Flu vaccine Problem Active need need Anxiety Anxiety Problem Active Erythromela Erythromela Problem Active lgia lgia Essential Essential Problem Active (primary) (primary) hypertensio hypertensio n n Heart block Heart block Problem Active Hyperlipide Hyperlipide Problem Active [facility] 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 Special Jolley Problem Active Services Services Analysis Of Analysis Of Computerize Computerize d Data d Data History of History of Problem Resolve Nonpuerpera Nonpuerpera d l l Galactorrhe Galactorrhe a Of The a Of The Left Breast Left Breast History of History of Problem Resolve pharyngitis pharyngitis d History of History of Problem Resolve urinary urinary d tract tract infection infection Right ankle Right ankle Problem Active swelling swelling History of History of Problem Resolve UTI UTI d symptoms symptoms History of History of Problem Resolve Chest Chest d pressure pressure Palpitation Palpitation Problem Active s s History of History of Problem Resolve amenorrhea amenorrhea d History of History of Problem Resolve dysmenorrhe dysmenorrhe d a a Tachycardia Tachycardia Problem Active Pruritus of Pruritus of Problem Active vagina vagina History of History of Problem Resolve Yeast Yeast d infection infection Irregular Irregular Problem Active menstruatio menstruatio n n Heavy Heavy Problem Active menses menses Ovarian Ovarian Problem Active Cyst Cyst Irregular Irregular Problem Active Length Of Length Of Menstrual Menstrual Periods Periods History of History of Problem Resolve hematuria hematuria d History of History of Problem Resolve urinary urinary d frequency frequency Acute Acute Problem Active otitis otitis media media History of History of Problem Resolve influenza influenza d Allergies, Adverse Reactions, Alerts Allergy Name Allergy Status Severity Reaction(s) Onset Inactive Treat ing Comments Type Date Date Clinician Biaxin TABS Allergy Active to drug (finding ) Ceclor CAPS Allergy Active to drug (finding ) Cipro TABS Allergy Inactive to drug (finding ) Demerol TABS Allergy Active to drug (finding ) Dilaudid TABS Allergy Active to drug (finding ) Levaquin TABS Allergy Active to drug (finding ) Morphine Allergy Active Derivatives to drug (finding ) NSAIDs Allergy Active to drug (finding ) Penicillins Allergy Active to drug (finding ) Reglan Allergy Active to drug (finding ) Diflucan TABS Allergy Active to drug (finding ) Medications Ordered Filled Start Stop Current Ordering Indication Dosage Frequency Signature Comments Components Medication Medication Date Date Medication? Clinician (SIG) Name Name Ayleen Abbasi 5 Yes BARBARA / table t MG Oral MG Oral 4-03 NAHUM PO BID Tablet Tablet 00:00: M.D. 00 Azithromyci Azithromyci Yes BARBARA 1 QD TAKE 1 n 500 MG n 500 MG 4-03 NAHUM TABLET Oral Tablet Oral Tablet 00:00: M.D. DAILY. 00 Fluticasone Fluticasone Yes BARBARA QD USE 2 Propionate Propionate 4-03 NAHUM SPRAYS IN 50 MCG/ACT 50 MCG/ACT 00:00: M.D. EACH Nasal Nasal 00 NOSTRIL Suspension Suspension ONCE DAILY Nystatin-Tr Nystatin-Tr 2018-03 Yes GAZALA Q0.5D APPLY iamcinolone iamcinolone 0-08 CAPELLAN SPARI NGLY 123796-4.1 153175-9.1 00:00: M.D. TO UNIT/GM-% UNIT/GM-% 00 AFFECTED External External AREA(S) Cream Cream TWICE DAILY FLUoxetine FLUoxetine 2014-03 Yes MARSHALLOJIE 1 QD TAKE 1 HCl - 20 MG HCl - 20 MG 1-10 VARGAS M.D. CAPSU LE BY Oral Oral 00:00: MOUTH Capsule Capsule 00 DAILY Abilify 10 Abilify 10 2014-03 Yes SHAOJIE TAKE 1/ 2 MG Oral MG Oral 1-10 VARGAS M.D. TAB THREE Tablet Tablet 00:00: TIMES 00 DAILY AND 1/2 TAB AT BEDTIME NEEDED Albuterol Albuterol Yes BARBARA USE 1 VIAL Sulfate Sulfate 8-14 NAHUM VIA (2.5 (2.5 00:00: M.D. NEBULIZER MG/3ML) MG/3ML) 00 EVERY 4 0.083% 0.083% HOURS Inhalation Inhalation NEEDED Nebulizatio Nebulizatio n Solution n Solution Clopidogrel Clopidogrel Yes BARBARA TAKE 1 Bisulfate Bisulfate 09-20 NAHUM TABLET BY 75 MG Oral 75 MG Oral 00:00: M.D. MOUTH Tablet Tablet 00 DAILY Plavix TABS Plavix TABS Yes Immunizations Ordered Immunization Name Filled Immunization Name Date Sta tus Comments Fluzone Quadrivalent 0.5 2018-12-20 Completed ML Intramuscular 11:49:00 Suspension Prefilled Syringe Fluzone Quadrivalent 0.5 2017-11-30 Completed ML Intramuscular 13:18:00 Suspension Fluzone Quadrivalent 0.5 2017-01-02 Completed ML Intramuscular 11:16:00 Suspension Fluzone Quadrivalent 0.5 2016-01-13 Completed ML Intramuscular 14:22:00 Suspension Influenza 2010-12-19 Completed 14:37:00 Influenza 2009-12-03 Completed 17:39:00 Influenza 2007-12-31 Completed 00:00:00 Influenza 2007-02-25 Completed 00:00:00 Td 2007-02-25 Completed 00:00:00 Vital Signs Vital Name Observation Time Observation Value Comments Systolic blood pressure 2019-05-02 15:13:00 112 mm[Hg] Loca tion: RUE; Position: Sittin g Diastolic blood pressure 2019-05-02 15:13:00 76 mm[Hg] Loc ation: RUE; Position: Sittin g Body height 2019-05-02 15:13:00 68 [in_us] Weight 2019-05-02 15:13:00 190 [lb_av] Heart Rate 2019-05-02 15:13:00 79 /min BP Systolic 2019-04-15 16:33:00 122 mm[Hg] Location: [facility]; Position: Sittin g BP Diastolic 2019-04-15 16:33:00 78 mm[Hg] Location: [facility]; Position: Sittin g Height 2019-04-15 16:33:00 68 [in_us] Weight 2019-04-15 16:33:00 209 [lb_av] BP Systolic 2018-12-31 16:04:00 113 mm[Hg] Location: [facility]; Position: Sittin g BP Diastolic 2018-12-31 16:04:00 79 mm[Hg] Location: [facility]; Position: Sittin g Height 2018-12-31 16:04:00 68 [in_us] Weight 2018-12-31 16:04:00 204 [lb_av] Temperature 2018-12-31 16:04:00 97.9 [degF] Method: Oral Heart Rate 2018-12-31 16:04:00 79 /min BP Systolic 2018-12-20 11:28:00 136 mm[Hg] Location: [facility]; Position: Sittin g BP Diastolic 2018-12-20 11:28:00 82 mm[Hg] Location: [facility]; Position: Sittin g Height 2018-12-20 11:28:00 68 [in_us] Weight 2018-12-20 11:28:00 208.125 [lb_av] Temperature 2018-12-20 11:28:00 97.5 [degF] Method: Oral Heart Rate 2018-12-20 11:28:00 72 /min Location: L Br[facility]ial [facility]; Respiration Rate 2018-12-20 11:28:00 16 /min Quality: No rmal BP Systolic 2018-11-27 10:59:00 104 mm[Hg] Location: RU E; Position: Sittin g BP Diastolic 2018-11-27 10:59:00 67 mm[Hg] Location: RU E; Position: Sittin g Height 2018-11-27 10:59:00 68 [in_us] Weight 2018-11-27 10:59:00 204 [lb_av] Temperature 2018-11-27 10:59:00 98.2 [degF] Method: Oral Heart Rate 2018-11-27 10:59:00 76 /min Location: R Brachial Artery; Respiration Rate 2018-11-27 10:59:00 18 /min Quality: No rmal O2 SAT 2018-11-27 10:59:00 99 % Source: RA BP Systolic 2018-11-26 11:27:00 105 mm[Hg] Location: RU E; Position: Supine BP Diastolic 2018-11-26 11:27:00 74 mm[Hg] Location: RU E; Position: Supine Heart Rate 2018-11-26 11:27:00 75 /min Location: R [facility]ial [facility]; Quality: Normal BP Systolic 2018-11-26 11:25:00 115 mm[Hg] Location: [facility]; Position: Standi ng BP Diastolic 2018-11-26 11:25:00 78 mm[Hg] Location: [facility]; Position: Standi ng Heart Rate 2018-11-26 11:25:00 123 /min Location: L [facility]ial [facility]; Quality: Normal BP Systolic 2018-11-26 11:19:00 91 mm[Hg] Location: RU E; Position: Sittin g BP Diastolic 2018-11-26 11:19:00 70 mm[Hg] Location: RU E; Position: Sittin g Heart Rate 2018-11-26 11:19:00 84 /min Location: R Br[facility]ial [facility]; Quality: Normal Heart Rate 2018-11-26 11:18:00 84 /min Location: R Brachial Artery; Quality: Normal BP Systolic 2018-11-26 10:57:00 106 mm[Hg] Location: RU E; Position: Sittin g BP Diastolic 2018-11-26 10:57:00 72 mm[Hg] Location: RU E; Position: Sittin g Height 2018-11-26 10:57:00 68 [in_us] Weight 2018-11-26 10:57:00 204 [lb_av] Temperature 2018-11-26 10:57:00 98.7 [degF] Method: Oral Heart Rate 2018-11-26 10:57:00 78 /min Location: R Radial; Quality: Normal Respiration Rate 2018-11-26 10:57:00 16 /min Quality: No rmal BP Systolic 2018-04-23 12:50:00 107 mm[Hg] Location: [facility]; Position: Sittin g BP Diastolic 2018-04-23 12:50:00 73 mm[Hg] Location: [facility]; Position: Sittin g Weight 2018-04-23 12:50:00 208.25 [lb_av] Temperature 2018-04-23 12:50:00 97.7 [degF] Method: Oral Heart Rate 2018-04-23 12:50:00 65 /min Location: L Br[facility]ial [facility]; Quality: Normal Respiration Rate 2018-04-23 12:50:00 18 /min Quality: No rmal O2 SAT 2018-04-23 12:50:00 99 % Source: RA BP Systolic 2017-11-30 13:16:00 115 mm[Hg] Location: [facility]; Position: Sittin g BP Diastolic 2017-11-30 13:16:00 78 mm[Hg] Location: [facility]; Position: Sittin g Height 2017-11-30 13:16:00 68 [in_us] Weight 2017-11-30 13:16:00 203 [lb_av] Temperature 2017-11-30 13:16:00 98.2 [degF] Method: Oral Heart Rate 2017-11-30 13:16:00 96 /min Location: L Radial; Quality: Normal Respiration Rate 2017-11-30 13:16:00 16 /min Quality: No rmal BP Systolic 2017-08-30 10:00:00 113 mm[Hg] Location: RU E; Position: Sittin g BP Diastolic 2017-08-30 10:00:00 78 mm[Hg] Location: RU E; Position: Sittin g Height 2017-08-30 10:00:00 68 [in_us] Weight 2017-08-30 10:00:00 205 [lb_av] Temperature 2017-08-30 10:00:00 98.3 [degF] Method: Oral Heart Rate 2017-08-30 10:00:00 78 /min BP Systolic 2017-08-06 13:24:00 95 mm[Hg] Location: [facility]; Position: Sittin g BP Diastolic 2017-08-06 13:24:00 63 mm[Hg] Location: [facility]; Position: Sittin g Height 2017-08-06 13:24:00 68 [in_us] Weight 2017-08-06 13:24:00 207.3125 [lb_av] Temperature 2017-08-06 13:24:00 98 [degF] Method: Temp oral Heart Rate 2017-08-06 13:24:00 81 /min Respiration Rate 2017-08-06 13:24:00 16 /min Quality: No rmal BP Systolic 2017-08-06 10:29:00 107 mm[Hg] Location: RU E; Position: Sittin g BP Diastolic 2017-08-06 10:29:00 74 mm[Hg] Location: RU E; Position: Sittin g Height 2017-08-06 10:29:00 68 [in_us] Weight 2017-08-06 10:29:00 207 [lb_av] Heart Rate 2017-08-06 10:29:00 69 /min Location: R Radial; Respiration Rate 2017-08-06 10:29:00 16 /min Quality: No rmal O2 SAT 2017-08-06 10:29:00 99 % Source: RA BP Systolic 2017-07-27 10:36:00 110 mm[Hg] Location: RU E; Position: Sittin g BP Diastolic 2017-07-27 10:36:00 78 mm[Hg] Location: RU E; Position: Sittin g Height 2017-07-27 10:36:00 68 [in_us] Weight 2017-07-27 10:36:00 207.4375 [lb_av] Temperature 2017-07-27 10:36:00 98.5 [degF] Method: Oral Heart Rate 2017-07-27 10:36:00 69 /min Location: R Brachial Artery; Quality: Normal Respiration Rate 2017-07-27 10:36:00 16 /min Quality: No rmal Procedures and Interventions Procedure Date / Time Performed Performing Yaz Arreola PAP 2019-05-02 00:00:00 [QLH] CULTURE, URINE, ROUTINE 2019-05-02 00:00:00 [QLH] URINALYSIS, COMPLETE 2019-05-02 00:00:00 US Pelvis with Pelvis Transvaginal [id number] 2019-04-15 00:00:00 [QLH] CULTURE, URINE, ROUTINE 2018-12-31 00:00:00 [QLH] URINALYSIS, COMPLETE 2018-12-03 00:00:00 [QLH] CULTURE, URINE, ROUTINE 2018-12-03 00:00:00 [N] 2D Echo complete, with Doppler [id number] 2018-11-26 00:00:00 [QLH] CMP W/EGFR 2018-04-23 00:00:00 [QLH] LIPID PANEL 2018-04-23 00:00:00 [QLH] TSH, 3RD GENERATION W/REFLEX TO FT4 2018-04-23 00:00:0 0 [QLH] CBC (INCLUDES DIFF/PLT) 2018-04-23 00:00:00 [QLH] HEMOGLOBIN A1c 2018-04-23 00:00:00 [QLH] URINALYSIS, COMPLETE 2017-11-30 00:00:00 [QLH] CULTURE, URINE, ROUTINE 2017-11-30 00:00:00 US Pelvis Transvaginal [id number] 2017-11-30 00:00:00 History of Appendectomy History of Cholecystectomy History of Oophorectomy Plan of Care Planned Activity Planned Date Comments Encounters Start End Encounter Admission Attending Care Care Department En counter Date/Time Date/Time Type Type Clinicians Facility ID 2019-07-16 2019-07-16 Fiordaliza HALL [facility] [id number] 15:30:00 15:30:00 t; YAN BEEBE ALIJANA, NP 2019-06-27 2019-06-27 Fiordaliza SIDHU [facility] ne [id number] 13:00:00 13:00:00 t; Milena [facility]ENEZ - [facility] 2019-06-17 2019-06-17 Fiordaliza VARGAS [facility] Multispecialty [id number] 12:00:00 12:00:00 t; JOSELO VARGAS - Milena Mckeon M.D. 2019-05-13 2019-05-13 Fiordaliza [facility]ALL [facility] [id number] 11:00:00 11:00:00 t; YAN BEEBE ALIJANA, NP 2019-05-09 2019-05-09 Fiordaliza ARIAS [facility] [id number] 10:45:00 10:45:00 t; ANABEL ARIAS M.D. HAJAR, M.D. 2019-05-02 2019-05-02 Fiordaliza VERA [facility] [id number] 15:00:00 15:00:00 t; FRED - [facility] Milena VERA M.D. 2019-04-28 2019-04-28 [place] [facility] [address] [id number] 12:36:00 12:36:00 2019-04-15 2019-04-15 Fiordaliza CORONEL [facility] [place] [id number] 15:40:00 15:40:00 t; Maxwell RAMIREZ [place] Milena CORONEL M.D. 2019-02-26 2019-02-26 AILIN Allen [facility] [id number] 10:30:00 10:30:00 t; ANABEL ARIAS M.D. HAJAR, M.D. 2018-12-31 2018-12-31 Fiordaliza CAPELLAN [facility] [id number] 15:00:00 15:00:00 t; Maxwell PICHARDO [place] Milena Sanchez M.D. 2018-12-25 2018-12-25 AILIN Murguia [facility] [id number] 13:30:00 13:30:00 t; YAN BEEBE ALIJANA, NP 2018-12-20 2018-12-20 Appointchika MED [facility] [id number] 11:30:00 11:30:00 t; MED PROVIDER, Case Management PROVIDER, TCM TCM 2018-12-08 2018-12-08 Inpatient E [facility] [id number] 20:00:00 11:53:00 2018-11-27 2018-11-27 AILIN Reina [facility] [id number] 13:45:00 13:45:00 t; NATALIE CEDENO SAUMYA, M.D. M.D. 2018-11-27 2018-11-27 AILIN Feliz Mult[facility]ty [id number] 10:30:00 10:30:00 t; JOSELO VARGAS, - Milena Mckeon MBud 2018-11-26 2018-11-26 AILIN Flower Non-Invasive - [id number] 13:30:00 13:30:00 t; CÉSAR, NON-INVASIV [facility] NON-INVASI E Center VE 2018-11-26 2018-11-26 Fiordaliza SIDHU [facility] [place] [id number] 10:30:00 10:30:00 t; Milena [facility]IMENEZ - [facility] 2018-11-01 2018-10-31 Inpatient E [facility] CAR [id number] 10:09:00 20:37:00 2018-09-09 2018-09-09 AILIN Gaming [facility] [id number] 09:20:00 09:20:00 t; JORDI WONG CATALIN, M.D. M.D. 2018-04-23 2018-04-23 AILIN Feliz [facility] [id number] 13:00:00 13:00:00 t; JOSELO VARGAS Health and SHAOJIE, M.D. [facility] Milena [facility] 2018-03-06 2018-03-06 AppointAILIN Edwards UTP [id number] 12:00:00 12:00:00 t; JOSELO VARGAS SHAOJIE, M.D. M.D. 2018-02-19 2018-02-19 AppointAILIN Edwards UTP [id number] 11:30:00 11:30:00 t; JOSELO VARGAS SHAOJIE, M.D. M.D. 2018-02-19 2018-02-19 AppointAILIN Edwards [id number] 11:30:00 11:30:00 t; JOSELO VARGAS SHAOJIE, M.D. M.D. 2017-12-26 2017-12-26 AppointKARINE Payan UTP UTP [id number] 14:30:00 14:30:00 t; Milena SCHMIDT M.D. 2017-11-30 2017-11-30 AppointAILIN [facility] [place] [id number] 13:00:00 13:00:00 t; Milena JIMENEZ AMBER, M.D. 2017-11-21 2017-11-21 AILIN Feliz [facility] [id number] 11:00:00 11:00:00 t; JOSELO VARGAS SHAOJIE, M.D. M.D. 2017-11-06 2017-11-06 [facility] VARGAS [id number] 12:00:00 12:00:00 t; JOSELO VARGAS SHAOJIE, M.D. M.D. 2017-08-30 2017-08-30 [facility] [id number] 10:00:00 10:00:00 t; MARILIA PICHARDO M.D. GAZALA, M.D. 2017-08-06 2017-08-06 AILIN Feliz [facility] [id number] 14:00:00 14:00:00 t; JOSELO VARGAS SHAOJIE, M.D. M.D. 2017-08-06 2017-08-06 [facility] JUDITH, AILIN [facility] [id number] 10:40:00 10:40:00 t; JORDI WONG CATALIN, M.D. M.D. 2017-07-27 2017-07-27 [facility] NAHUM, AILIN [facility] Medici [place] [id number] 10:30:00 10:30:00 t; Milena JIMENEZ AMBER, M.D. 2017-06-26 2017-06-26 [facility] AILIN VARGAS UTP [id number] 13:30:00 13:30:00 t; JOSELO VARGAS SHAOJIE, M.D. M.D. 2017-04-24 2017-04-24 [facility] AILIN VARGAS UTP [id number] 12:00:00 12:00:00 t; JOSELO VARGAS SHAOJIE, M.D. M.D. 2017-01-11 2017-01-11 [facility] NAHUM, AILIN UTP [id number] 13:45:00 13:45:00 t; Milena JIMENEZ AMBER, M.D. 2017-01-02 2017-01-02 [facility] ALICIA, AILIN UTP [id number] 14:00:00 14:00:00 t; JOSELO VARGAS SHAOJIE, M.D. M.D. 2017-01-02 2017-01-02 [facility] AILIN ROBERSON UTP [id number] 10:30:00 10:30:00 t; HIRAL ROBERSON, HIRAL, P.A. P.A. 2016-10-03 2016-10-03 [facility] NAHUM, AILIN UTP [id number] 11:00:00 11:00:00 t; Milena JIMENEZ AMBER, M.D. 2016-09-27 2016-09-27 [facility] ALICIA, AILIN UTP [id number] 13:00:00 13:00:00 t; JOSELO VARGAS SHAOJIE, M.D. M.D. 2016-09-20 2016-09-20 [facility] NAHUM, AILIN UTP [id number] 11:00:00 11:00:00 t; Milena JIMENEZ AMBER, M.D. 2016-09-05 2016-09-05 [facility] NAHUM, [facility] UTP [id number] 14:00:00 14:00:00 t; Milena JIMENEZ AMBER, M.D. 2016-07-28 2016-07-28 [facility] NAHUM, [facility] UTP [id number] 10:45:00 10:45:00 t; Milena JIMENEZ AMBER, M.D. 2016-07-28 2016-07-28 [facility] ESSCHIDI, [facility] UTP [id number] 09:30:00 09:30:00 t; BLANCA SCHMIDT KATHLEEN, M.D. M.D. 2016-06-28 2016-06-28 [facility] VOWELS, [facility] [id number] 10:00:00 10:00:00 t; RAGHAVENDRA JOHNSON PATRICIA, M.D. M.D. 2016-06-16 2016-06-16 [facility] ROMI [facility] [id number] 14:30:00 14:30:00 t; Milena BRADY VERA, M.D. 2016-01-13 2016-01-13 [facility] UTP [id number] 15:00:00 15:00:00 t; Titus calvillo Montalvo-C M.D. hen, Rolf, M.D. 2015-11-16 2015-11-16 [facility] [id number] 10:30:00 10:30:00 t; Titus calvillo Montalvo-C M.D. hen, Rolf, M.D. 2015-09-29 2015-09-29 [facility] MUNIRA [facility] UTP [id number] 12:00:00 12:00:00 t; , GABE QUIROZ M.D., JAMES, M.D. 2015-07-26 2015-07-26 [facility] DELICIA, [facility] UTP [id number] 13:30:00 13:30:00 t; DELICIA GUSMAN M.D. ROBERT, M.D. Results Test Description Test Time Test Comments Text Results Atomic Results Result Comments [[facility]] URINALYSIS, COMPLETE 2019-05-02 16:20:01 Test Item Value Reference Range Comments UA Turbidity (test code = 17543-7) Clear Clear UA Spec Grav (test code = 5810-7) 1.012 <=1.030 UA pH (test code = 5803-2) 7.0 5.0-8.0 UA Protein (test code = 68649-8) Negative Negative UA Glucose (test code = 22947-7) Negative Negative UA Ketones (test code = 48313-0) Negative Negative UA Bili (test code = 5770-3) Negative Negative UA Blood (test code = 5794-3) Negative Negative UA Nitrite (test code = 5802-4) Negative Negative UA Leuk Est (test code = 5799-2) Negative Negative UA RBC (test code = 63256-9) 1 {/HPF} 0-2 UA WBC (test code = 49713-6) <1 0-5 UA Bacteria (test code = 77420-8) Occasional None Seen UA Mucus (test code = 8247-9) Few None Seen UA Sq Epi (test code = 60362-5) Occasional Few UA Color (test code = 5778-6) Ltyellow UROBILINOGEN (test code = 41208-0) <=1.0 0.1-1.0 [[facility]] CULTURE, URINE, [id number] 16:20:01 Test Item Value Reference Range Comments FINAL REPORT (test code = FINAL REPORT) No Growth . [facility] - [id number] 00:00:00 Test Item Value Reference Range Comments Case (test code = Case) Click ImageLink button for report. Specimen 1 (test code = Click ImageLink button for Specimen 1) report. US Pelvis with Pelvis Transvaginal [id number] 12:40:00PROCEDURE INFORMATION:Exam: US Pelvis Complete, Transabdominal and US Pelvis, TransvaginalExam date and time: 04/29/2019 12:52 PMAge: 34 years oldClinical indication: Irregular menstruation, unspecified;Additional info:N92.6/irregular mensesTECHNIQUE:Imaging protocol: Real-time transabdominal and transvaginal pelvic ultrasound(complete) with image documentation. Transvaginal imaging was used for betterevaluation of the endometrium and adnexa.COMPARISON:PELVIS W PELVIS TRANSVAGINAL US 07/12/2016 4:20 PMFINDINGS:The retroverted uterus measures 8.3 x 4.5 x 7.1 cm in size. There are nabothiancysts. Thereis normal parenchymal echotexture.The endometrial stripe measures 11 mm in thickness.Right ovary measures 3.5 x 2.2 x 2.5 cm.Status post left oophorectomy.There is normal bilateral ovarian blood flow on doppler evaluation. There is a right ovarian cyst measuring 2.2 x 1.8 x 1.8 cm.There is no free fluid in the cul-de-sac.If there is further concern, followup pelvic sonography or MRI of the pelvismay be performed.IMPRESSION:Heterogeneous uterine parenchyma.Right ovarian cyst.Manolo Mckeon MD On 04/29/2019 15:51:15; [id number]--Ufke by: Manolo Mckeon MDDictated Date/time: 04/29/19 15:51Electronically Signed by: Manolo Mckeon MD 04/29/2014:51FINAL REPORT[[facility]] CULTURE, URINE, [id number] 03:00:00 Test Item Value Reference Range Comments CULTURE (test code = See Comment CULTURE, UR INE, ROUTINE CULTURE) MICRO NUMBER: [id number] TEST STATUS: FINAL SPECIMEN SOURCE: URINE SPECIMEN QUALITY : ADEQUATE RESULT: No GrowthNO COLLECTION DATE RECEIVED. WE HAVE USEDTHE SLAVA E THE SPECIMEN WAS RECEIVED BY [facility] THE COLLECTIO N DATE. IF THISIS INCORRECT , PLEASE CONTACT CLIENT SERVICES. PHONE NUMBER: [phone] [O] Urine Dipstick (In Office)2018-12-31 00:00:00 Test Item Value Reference Range Comments Glucose (test code = Glucose) negative LEUKOCYTES (test code = LEUKOCYTES) negative NITRITE; Normal (test code = 15196-1) negative UROBILINOGEN; Normal (test code = 89914-4) 0.2 PROTEIN; Normal (test code = 19461-5) negative pH (test code = pH) 5.5 URINE BLOOD; Normal (test code = 98750-0) trace SPECIFIC GRAVITY; Normal (test code = 2965-2) 1.030 KETONES; Normal (test code = 58906-4) negative BILIRUBIN; Normal (test code = 99910-7) negative [[facility]] URINALYSIS, [id number] 08:48:00 Test Item Value Reference Range Comments COLOR; Normal (test code = 5778-6) YELLOW YELLOW APPEARANCE (test code = APPEARANCE) CLEAR CLEAR SPECIFIC GRAVITY; Normal (test code = 2965-2) 1.015 1. 001-1.035 PH; Normal (test code = 2756-5) 8.0 5.0-8.0 GLUCOSE; Normal (test code = 1547-9) NEGATIVE NEGATIVE BILIRUBIN; Normal (test code = 85226-4) NEGATIVE NEGATIVE KETONES; Normal (test code = 77384-7) NEGATIVE NEGATIVE OCCULT BLOOD; Abnormal (test code = 36148-2) 3+ NEG ATIVE PROTEIN; Abnormal (test code = 59777-2) 1+ NEGATIVE NITRITE; Normal (test code = 27001-0) NEGATIVE NEGATIVE LEUKOCYTE ESTERASE (test code = LEUKOCYTE NEGATIVE NEGATI VE ESTERASE) WBC; Normal (test code = 6690-2) 0-5 < OR = 5 RBC; Abnormal (test code = 789-8) 3-10 < OR = 2 SQUAMOUS EPITHELIAL CELLS (test code = 34438-5) 0-5 < OR = 5 BACTERIA; Abnormal (test code = 630-4) FEW NONE SEEN HYALINE CAST; Normal (test code = 35120-1) NONE SEEN NONE SEEN [[facility]] CULTURE, URINE, [id number] 08:48:00 Test Item Value Reference Range Comments CULTURE (test code = See Comment CULTURE, UR INE, ROUTINE CULTURE) MICRO NUMBER: [id number] TEST STATUS: FINAL SPECIMEN SOURCE: URINE SPECIMEN QUALITY : ADEQUATE RESULT: Greater than 100,000 CFU/mL o f Proteus mirabilis This organism ma y show imipenem resistance by mechanisms othe r than a carbapenemase. P.mirabil is ----- INT RIDDHI AMOX/CLAVULANATE S 4 AMPICILLIN R >=32 AMP/SULBA CTAM S 4 CEFAZOLIN NR <=4 2 CEF EPIME S <=1 C EFTRIAXONE S <=1 CIPROFLOXACIN R >=4 GENTAMICIN S < =1 IMIPENEM I 2 LEVOFLOXACIN R >=8 NITROFURANTOIN R 64 PIP/TAZOBAC CRANDALL S <=4 TOBRAMYCI N S <=1 TRIMETH OPRIM/SULFA S 40S=Suscep tible I=Intermediate R=Resistant * = Not TestedNR = N ot Reported NN = See Karen sierra CommentsTHERAPY COMMENTS Note 1: For infect ions other than uncomplicated UT I caused by E. coli, K. pneu moniae or P. mirabilis: Ce fazolin is resistant if RIDDHI > or = 8 mcg/mL. (Dist inguishing susceptible vers us intermediate for isolates w ith RIDDHI < or = 4 mcg/mL requires additional testing.) Not e 2: For uncomplicated UT I caused by E. coli, K. pneu moniae or P. mirabilis: Cefaz victor manuel is susceptible if M IC <32 mcg/mL and predicts susceptible to the oral agents cefaclor, cefdinir, cef podoxime, cefprozil, cefur oxime, cephalexin an d loracarbef. [[facility]] LIPID [id number] 11:26:00 Test Item Value Reference Range Comments CHOLESTEROL, TOTAL; Normal 187 mg/dl <200 (test code = 2093-3) HDL CHOLESTEROL; Normal 53 mg/dl >50 (test code = 2085-9) TRIGLYCERIDES; Normal 74 mg/dl <150 (test code = 2571-8) LDL-CHOLESTEROL; Above 117 {MG/DL JAX} Referenc e range: <100 High Threshold (test code Desira ble range <100 mg/dL = 61938-8) for primary prev ention; <70 mg/dL for pa tients with CHD or diab etic patients with > or = 2 CHD risk factors. LD L-C is now calculated using the Abran-Shira calculation, i ch is a validated novel method providing better accuracy than the Friedew ald equation in the estimation of LDL-C. Abran SS et al. LEONARDO. 2013;310(1 2): 9634-8849 (http://educatio Vyykn/faq /ZQA081) CHOL/HDLC RATIO (test code 3.5 {CALC} <5.0 = CHOL/HDLC RATIO) NON HDL CHOLESTEROL (test 134 {MG/DL JAX} <130 For p atients with diabetes code = NON HDL plus 1 major ASC VD risk CHOLESTEROL) factor, treating to a non-HDL-C goal o f <100 mg/dL (LDL-C of <70 mg/dL) is considered a therapeutic opti on. [[facility]] CMP [id number] 11:26:00 Test Item Value Reference Range Comments GLUCOSE; Normal (test code 86 mg/dl 65-139 Non-f asting reference = 1547-9) interval UREA NITROGEN (BUN) (test 11 mg/dl 25 code = UREA NITROGEN (BUN)) CREATININE (test code = 0.60 mg/dl 0.50-1.10 CREATININE) eGFR NON- 118 {ML/MIN/1.7} > OR = 60 (test code = eGFR NON-) eGFR (test 137 {ML/MIN/1.7} > OR = 60 code = eGFR ) BUN/CREATININE RATIO (test NOT APPLICABLE 09-14 code = BUN/CREATININE RATIO) SODIUM (test code = SODIUM) 140 mmol/L 135-146 POTASSIUM (test code = 4.6 mmol/L 3.5-5.3 POTASSIUM) CHLORIDE (test code = 104 mmol/L 98-110 CHLORIDE) CARBON DIOXIDE (test code = 30 mmol/L 20-32 CARBON DIOXIDE) CALCIUM (test code = 9.5 mg/dl 8.6-10.2 CALCIUM) PROTEIN, TOTAL (test code = 7.5 g/dl 6.1-8.1 PROTEIN, TOTAL) ALBUMIN (test code = 4.6 g/dl 3.6-5.1 ALBUMIN) GLOBULIN (test code = 2.9 {G/DL CALC} 1.9-3.7 GLOBULIN) ALBUMIN/GLOBULIN RATIO 1.6 {CALC} 1.0-2.5 (test code = ALBUMIN/GLOBULIN RATIO) BILIRUBIN, TOTAL; Normal 0.7 mg/dl 0.2-1.2 (test code = 74233-2) ALKALINE PHSPHATASE (test 58 u/l 33-115 code = ALKALINE PHSPHATASE) AST; Normal (test code = 18 u/l 10-30 1916-6) ALT; Normal (test code = 12 u/l 6-29 1742-6) [[facility]] TSH, 3RD GENERATION W/REFLEX TO [id number] 11:26:00 Test Item Value Reference Range Comments TSH, 3RD GENERATION W/REFLEX 0.89 {MIU/L} Ref erence Range TO FT4 (test code = TSH, 3RD > or = 20 Years GENERATION W/REFLEX TO FT4) 0.40 -4.50 Ranges First trime ster 0.26-2.66 Second trimester 0.55 -2.73 Third trimest er 0.43-2.91 [[facility]] URINALYSIS, [id number] 16:42:01 Test Item Value Reference Range Comments UA Turbidity (test code = 16452-0) Clear Clear UA Spec Grav (test code = 5810-7) 1.003 <=1.030 UA pH (test code = 5803-2) 6.0 5.0-8.0 UA Protein (test code = 67245-8) Negative Negative UA Glucose (test code = 53352-9) Negative Negative UA Ketones (test code = 27538-3) Negative Negative UA Bili (test code = 5770-3) Negative Negative UA Blood (test code = 5794-3) Negative Negative UA Nitrite (test code = 5802-4) Negative Negative UA Leuk Est (test code = 5799-2) Negative Negative UA WBC (test code = 87087-6) <1 0-5 UA Bacteria; Abnormal (test code = 27802-6) Many None Seen UA Sq Epi (test code = 73471-4) Occasional Few UA Color (test code = 5778-6) Ltyellow UROBILINOGEN (test code = 64282-9) <=1.0 0.1-1.0 [[facility]] CULTURE, URINE, [id number] 16:42:01 Test Item Value Reference Range Comments FINAL REPORT (test code = Specimen contains 3 or more FINAL REPORT) potential pathogens; recommend correlation withurinalysis; if catheterized specimen recommend removal and recollection. Ifclinical situation warrants please call the laboratory for further testing. COMicrobiology [phone]. [O] Urine Dipstick (In Office)2017-11-30 13:20:00 Test Item Value Reference Range Comments Glucose (test code = Glucose) N LEUKOCYTES (test code = LEUKOCYTES) N NITRITE; Normal (test code = 70555-1) N UROBILINOGEN; Normal (test code = 81875-2) N PROTEIN; Normal (test code = 45984-0) N pH (test code = pH) 6.0 URINE BLOOD; Normal (test code = 21728-7) N SPECIFIC GRAVITY; Normal (test code = 2965-2) 1.015 KETONES; Normal (test code = 89734-6) N BILIRUBIN; Normal (test code = 18595-2) N COLOR URINE; Normal (test code = 5778-6) YELLOW APPEARANCE; Normal (test code = 5767-9) CLEAR [O] Urine Dipstick (In Office)2017-08-30 10:11:00 Test Item Value Reference Range Comments LEUKOCYTES (test code = LEUKOCYTES) Negative NITRITE; Normal (test code = 64376-6) Negative PROTEIN; Normal (test code = 61997-0) Negative URINE BLOOD; Abnormal (test code = 17628-9) Trace KETONES; Normal (test code = 54796-5) Negative GLUCOSE; Normal (test code = 1547-9) Negative
--- OUTSIDE RECORDS SUMMARY | 2019-07-21 22:16 | XMS REPORT | Summary of Care ---
:1985 Author Organization [facility] Address [address] [place] [address] Care Team Providers Name Role Phone MARILIA Abbott Unavailable Unavailable NAHUM Abbott Unavailable Philippe VARGAS M.D. Unavailable Philippe Henderson MD Unavailable Philippe VARGAS MD Unavailable Philippe CEDENO MD CO Unavailable Unavailable HUGO MARX Unavailable Unavailable MARILIA MARX Unavailable Unavailable HOMER MARX [facility] Unavailable Unavailable Aislinn Abbott Unavailable Unavailable BETHANY Abbott Unavailable Unavailable NAHUM MARX [facility] Unavailable Unavailable Unavailable Unavailable Unavailable Functional Status Name Dates Details Functional status health issues are not documented Status: Name Dates Details Cognitive status health issues are not documented Status: Problems Name Dates Details Normal routine physical examination (V70.0, Z00.00) Status: Active Oligomenorrhea (626.1, N91.5) Status: Ac timaryam Other signs and symptoms in breast (611.79, N64.59) Status: Active Arterial insufficiency (447.1, I77.1) St atus: Active Raynauds phenomenon (443.0, I73.00) Stat us: Active Cerebral palsy (343.9, G80.9) Status: [address] Dr[employer] 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, F70) Status: Active Urinary frequency (788.41, R35.0) Status : Active Yeast infection (112.9, B37.9) Status: A ctive Irregular menses (626.4, N92.6) Status: Active Heavy menses (626.2, N92.0) Status: Acti ve Pruritus of vagina (698.1, N89.8) Status : Active Tachycardia (785.0, R00.0) Status: Activ e Recurrent UTI (599.0, N39.0) Status: Act mari Paroxysmal supraventricular tachycardia (427.0, I47.1) Status: Active Hyperlipidemia (272.4, E78.5) Status: Ac tive Heart block (426.9, I45.9) Status: Activ e Essential (primary) hypertension (401.9, I10) Status: Active Erythromelalgia (443.82, I73.81) Status: Active Anxiety (300.00, F41.9) Status: Active Flu vaccine need (V04.81, Z23) Status: A ctive Allergic rhinitis (477.9, J30.9) Status: Active Scoliosis (737.30, M41.9) Status: Active Auditory hallucinations (780.1, R44.0) S tatus: Active Asthma (493.90, J45.909) Status: Active Hypertrophy of breast (611.1, N62) Statu s: Active Esophageal reflux (530.81, K21.9) Status : Active Medications Name Dates Details FLUoxetine HCl - 20 MG Oral Capsule TAKE ONE CAPSULE BY MOUTH DAILY Quantity: 90 Refills: 1 JOSELO VARGAS M.D. Start : 02-Feb-2015 Active Abilify 10 MG Oral Tablet TAKE 1/2 TAB THREE TIMES DAILY AND 1/2 TAB AT BEDTIME NEEDED Quantity: 60 Refills: 5 JOSELO VARGAS M.D. Start : 02-Feb-2015 Active Plavix TABS Refills: 0 Active Clopidogrel Bisulfate 75 MG Oral Tablet TAKE 1 TABLET BY MOUTH DAILY Quantity: 90 Refills: 1 BARBARA SIDHU M.D. Start : 21-Sep-2011 Active Nystatin-Triamcinolone 039343-4.1 UNIT/GM-% External Cream APPLY SPARINGLY TO AFFECTED AREA(S) TWICE DAILY Quantity: 1 Refills: 0 MARINO CAPELLAN M.D. Start : 31-Dec-2018 Active Albuterol Sulfate (2.5 MG/3ML) 0.083% Inhalation Nebulization Solution USE 1 VIAL VIA NEBULIZER EVERY 4 HOURS NEEDED . Quantity: 180 Refills: 3 BARBARA SIDHU M.D. Start : 07-Nov-2011 Active Allergies and Adverse Reactions Name Dates Details Biaxin TABS (Allergy) Status: Active Ceclor CAPS (Allergy) Status: Active Cipro TABS (Allergy) Status: Active Demerol TABS (Allergy) Status: Active Diflucan TABS (Allergy) Status: Active Dilaudid TABS (Allergy) Status: Active Levaquin TABS (Allergy) Status: Active Morphine Derivatives (Allergy) Status: A ctive NSAIDs (Allergy) Status: Active Penicillins (Allergy) Status: Active Reglan (Allergy) Status: Active Past Medical History Name Dates Details Cerebral palsy (343.9, G80.9) Status: Ac tive History of abdominal pain (V13.89, Z87.898) Status: Resolved History of Abdominal pain, RLQ (right lower quadrant) (789.0 3, R10.31) Status: Resolved History of Abdominal tenderness (789.60, R10.819) Status: Resolved History of Abnormal bleeding in menstrual cycle (626.9, N93. 9) Status: Resolved History of acute bronchitis with bronchospasm (V12.69, Z87.0 9) Status: Resolved History of acute pyelonephritis (V13.02, Z87.440) Status: Resolved History of Acute recurrent sinusitis (461.9, J01.91) Status: Resolved History of amenorrhea (V13.29, Z87.42) S tatus: Resolved History of Anal or rectal pain [...] Resolved History of Cough (786.2, R05) Status: Re solved History of cystitis (V13.02, Z87.440) St atus: Resolved History of dysmenorrhea (V13.29, Z87.42) Status: Resolved History of Extremity pain (729.5, M79.609) Status: Resolved History of fatigue (V13.89, Z87.898) Sta tus: Resolved History of Foot pain (729.5, M79.673) St atus: Resolved History of headache (V13.89, Z87.898) St atus: Resolved History of heart block (V12.59, Z86.79) Status: Resolved History of influenza (V12.09, Z87.09) St atus: Resolved History of Joint pain, hip (719.45, M25.559) Status: Resolved History of Left ear pain (388.70, H92.02) Status: Resolved History of Leg swelling (729.81, M79.89) Status: Resolved History of Limb swelling (729.81, M79.89) Status: Resolved History of Mental status change (780.97, R41.82) Status: Resolved History of Noninfectious diarrhea (787.91, K52.9) Status: Resolved History of Nonpuerperal Galactorrhea Of The Left Breast (611 .6) Status: Resolved History of Onychomycosis of toenail (110.1, B35.1) Status: Resolved History of Pain, joint, ankle and foot (719.47, M25.579) Status: Resolved History of Pain, joint, shoulder (719.41, M25.519) Status: Resolved History of Pelvic pain in female (625.9, R10.2) Status: Resolved History of pharyngitis (V12.69, Z87.09) Status: Resolved History of Pre-operative general physical examination (V72.8 3, Z01.818) Status: Resolved History of pyelonephritis (V13.02, Z87.448) Status: Resolved History of Raynaud's syndrome (V12.59, Z86.79) Status: Resolved History of Rectal pain (569.42, K62.89) Status: Resolved History of Recurrent UTI (599.0, N39.0) Status: Resolved History of shortness of breath (V13.89, Z87.898) Status: Resolved History of Sore throat (462, J02.9) Stat us: Resolved History of Subacute and chronic vaginitis [...] Status: Resolved History of varicella (V12.09, Z86.19) St atus: Resolved History of Viral intestinal infection (008.8, A08.4) Status: Resolved Procedures Procedure Dates Details US Pelvis with Pelvis Transvaginal [id number] Date: 15-Apr-2019 History of Appendectomy Completed History of Cholecystectomy Completed History of Oophorectomy Completed Immunization Name Dates Details Influenza #1 on: 25-Feb-2007 Lot #: [id number] Td on: 25-Feb-2007 Lot #: [id number] Influenza on: 31-Dec-2007 Lot #: [id number] Influenza on: 03-Dec-2009 Lot #: [id number] Influenza on: 19-Dec-2010 Lot #: [id number] Fluzone Quadrivalent 0.5 ML Intramuscular Suspension on: Dec-2015 Lot #: [id number] Fluzone Quadrivalent 0.5 ML Intramuscular Suspension on: Dec-2016 Lot #: [id number] Fluzone Quadrivalent 0.5 ML Intramuscular Suspension on: Lot #: [id number] Fluzone Quadrivalent 0.5 ML Intramuscular Suspension P refilled Syringe on: 20-Dec-2018 Lot #: [id number] Family History Name Dates Details Family history of Hypertension (V17.49) Comments: Family History Status: Active Name Dates Details Family history of rheumatoid arthritis (V17.7, Z82.61) Status: Active Name Dates Details Family history of hypertension (V17.49, Z82.49) Status: Active Social History Name Dates Details - Status: Name Dates Details Never smoker Never smoker Never smoker Never smoker Vital Signs Date Test Result Details 84-Pct-536198:33 BP Systolic 122 mm[Hg] Status: Comment s: Location: LUE; Position: Sitting BP Diastolic 78 mm[Hg] Status: Comments: Lo cation: LUE; Position: Sitting Height 68 in Status: Weight 209 lb Status: Body Mass Index Calculated 31.78 kg/m2 Status: Body Surface Area Calculated 2.08 m2 Status: Results Date Description Value Details Results not documented Plan of Care Name Dates Details Planned Observations Planned Goals not documented Planned Encounters Appointment; JOSELO VARGAS M.D. On: 29-Apr-2019 11:00 Instructions Name Dates Details Instructions not documented Encounters Appointment; JOSELO VARGAS M.D. On: 24-Apr-2017 12:00 Encounter Diagnosis: Problem not documented Appointment; JOSELO VARGAS M.D. On: 26-Jun-2017 13:30 Encounter Diagnosis: Problem not documented Appointment; BARBARA SIDHU M.D. On: 27-Jul-2017 10:3 0 Encounter Diagnosis: Problem not documented Appointment; JORDI WONG M.D. On: 06-Aug-2017 10: 40 Encounter Diagnosis: Problem not documented Appointment; JOSELO VARGAS M.D. On: 06-Aug-2017 14:00 Encounter Diagnosis: Problem not documented Appointment; MARINO CAPELLAN M.D. On: 30-Aug-2017 10: 00 Encounter Diagnosis: Problem not documented Appointment; JOSELO VARGAS M.D. On: 06-Nov-2017 12:00 Encounter Diagnosis: Problem not documented Appointment; JOSELO VARGAS M.D. On: 21-Nov-2017 11:00 Encounter Diagnosis: Problem not documented Appointment; BARBARA SIDHU M.D. On: 30-Nov-2017 13:0 0 Encounter Diagnosis: Problem not documented Appointment; KARINE [...] documented Appointment; JORDI WONG M.D. On: 09-Sep-2018 9:2 0 Encounter Diagnosis: Problem not documented Appointment; BARBARA SIDHU M.D. On: 26-Nov-2018 10:3 0 Encounter Diagnosis: Problem not documented Appointment; CÉSAR, NON-INVASIVE On: 26-Nov-2018 13:30 Encounter Diagnosis: Problem not documented Appointment; JOSELO VARGAS M.D. On: 27-Nov-2018 10:30 Encounter Diagnosis: Problem not documented Appointment; NATALIE CEDENO M.D. On: 27-Nov-2018 13:45 Encounter Diagnosis: Problem not documented Appointment; [facility] On: 20-Dec-2018 11:30 Encounter Diagnosis: Problem not documented Appointment; ABIEL HALL NP On: 25-Dec-2018 13: 30 Encounter Diagnosis: Problem not documented Appointment; MARINO CAPELLAN M.D. On: 31-Dec-2018 15: 00 Encounter Diagnosis: Problem not documented Appointment; ANABEL ARIAS M.D. On: 26-Feb-2019 10:30 Encounter Diagnosis: Problem not documented Appointment; ASHLEY CORONEL M.D. On: 15-Apr-2019 15:40 Encounter Diagnosis: Problem not documented
--- OUTSIDE RECORDS SUMMARY | 2019-07-21 22:17 | XMS REPORT | Summary of Care ---
:1985 Author Name Keisha RCruz Address Unavailable Unavailable , Care Team Providers Name Role Phone MARILIA Abbott Unavailable Unavailable NAHUM Abbott Unavailable Unavailable ALICIA Abbott Unavailable Unavailable Keisha Demarco Unavailable Unavailable Bethany MARX Unavailable Unavailable ALICIA MARX Unavailable Unavailable PAO MARX [place] Unavailable Unavailable HUGO MARX Unavailable Unavailable MARILIA MARX Unavailable Unavailable HOMER MARX [place] Unavailable Unavailable Aislinn Abbott Unavailable Unavailable BETHANY Abbott Unavailable Unavailable NAHUM MARX [place] Unavailable Unavailable Unavailable Unavailable Unavailable Functional Status Name Dates Details Functional status health issues are not documented Status: Name Dates Details Cognitive status health issues are not documented Status: Problems Name Dates Details Normal routine physical examination (V70.0, Z00.00) Status: Active Esophageal reflux (530.81, K21.9) Status : Active Oligomenorrhea (626.1, N91.5) Status: Ac tive Other signs and symptoms in breast (611.79, N64.59) Status: Active Hypertrophy of breast (611.1, N62) Statu s: Active Asthma (493.90, J45.909) Status: Active Auditory hallucinations (780.1, R44.0) S tatus: Active Arterial insufficiency (447.1, I77.1) St atus: Active Scoliosis (737.30, M41.9) Status: Active Raynauds phenomenon (443.0, I73.00) Stat us: Active Cerebral palsy (343.9, G80.9) Status: Ac tive Allergic rhinitis (477.9, J30.9) Status: Active Flu vaccine need (V04.81, Z23) Status: A ctive Special Services Analysis Of Computerized Data Status: Active Anxiety (300.00, F41.9) Status: Active Erythromelalgia (443.82, I73.81) Status: Active Essential (primary) hypertension (401.9, I10) Status: Active Heart block (426.9, I45.9) Status: Activ e Hyperlipidemia (272.4, E78.5) Status: Ac tive Paroxysmal supraventricular tachycardia (427.0, I47.1) Status: Active [...] Urinary frequency (788.41, R35.0) Status : Active Recurrent UTI (599.0, N39.0) Status: Act mari Tachycardia (785.0, R00.0) Status: Activ e Pruritus of vagina (698.1, N89.8) Status : Active Yeast infection (112.9, B37.9) Status: A ctive Irregular menses (626.4, N92.6) Status: Active Heavy menses (626.2, N92.0) Status: Acti ve Medications Name Dates Details Clopidogrel Bisulfate 75 MG Oral Tablet TAKE 1 TABLET BY MOUTH DAILY Quantity: 90 Refills: 1 BARBARA PLUMMER M.D. Start : 21-Sep-2011 Active Albuterol Sulfate (2.5 MG/3ML) 0.083% Inhalation Nebulization Solution USE 1 VIAL VIA NEBULIZER EVERY 4 HOURS NEEDED . Quantity: 180 Refills: 3 BARBARA PLUMMER M.D. Start : 07-Nov-2011 Active FLUoxetine HCl - 20 MG Oral Capsule TAKE ONE CAPSULE BY MOUTH DAILY Quantity: 90 Refills: 1 JOSELO VARGAS M.D. Start : 02-Feb-2015 Active Abilify 10 MG Oral Tablet TAKE 1/2 TAB THREE TIMES DAILY AND 1/2 TAB AT BEDTIME NEEDED Quantity: 60 Refills: 5 JOSELO VARGAS M.D. Start : 02-Feb-2015 Active Plavix TABS Refills: 0 Active Nystatin-Triamcinolone 899304-4.1 UNIT/GM-% External Cream APPLY SPARINGLY TO AFFECTED AREA(S) TWICE DAILY Quantity: 1 Refills: 0 MARINO CAPELLAN M.D. Start : 31-Dec-2018 Active Allergies and Adverse Reactions Name Dates [...] Dates Details US Pelvis with Pelvis Transvaginal 19374 Date: 15-Apr-2019 History of Appendectomy Completed History of Cholecystectomy Completed History of Oophorectomy Completed Immunization Name Dates Details Influenza #1 on: 25-Feb-2007 Lot #: [id number] Td on: 25-Feb-2007 Lot #: [id number] Influenza on: 31-Dec-2007 Lot #: [id number] Influenza on: 03-Dec-2009 Lot #: [id number] Influenza on: 19-Dec-2010 Lot #: [id number] Fluzone Quadrivalent 0.5 ML Intramuscular Suspension on: Dec-2015 Lot #: [id number] Fluzone Quadrivalent 0.5 ML Intramuscular Suspension on: Dec-2016 Lot #: [id number] Fluzone Quadrivalent 0.5 ML Intramuscular Suspension on: Lot #: [id number] Fluzone Quadrivalent 0.5 ML Intramuscular Suspension P refilled Syringe on: 20-Dec-2018 Lot #: [id number] Family History Name Dates Details Family history of Hypertension (V17.49) Comments: Family History Status: Active Name Dates Details Family history of rheumatoid arthritis (V17.7, Z82.61) Status: Active Name Dates Details Family history of hypertension (V17.49, Z82.49) Status: Active Social History Name Dates Details - Status: Name Dates Details Never smoker Never smoker Never smoker Never smoker Vital Signs Date Test Result Details [id number]-[id number]:33 BP Systolic 122 mm[Hg] Status: Comment s: [...] Planned Goals not documented Planned Encounters Appointment; BARBARA PLUMMER M.D. On: 22-Apr-2019 10: 45 Appointment; JOSELO VARGAS M.D. On: 29-Apr-2019 11:00 Interventions Provided Discussion/SummaryGuideline Used: Other: none HP[facility] - Family MedDr. Plummer Patient's mother is calling to report patient having heavy bleeding intermittent since 2018. Last ED visit was 04/12/2019 and ultrasound shoed hemorrhagic uterine cyst. Patient is also taking Plavix. Patient not with mother at time of call, LVM deferred. Mother is requesting an appointment with Dr. Plummer. Appointment scheduled for @ 10:[address] Plummer. Mother instructed if patient's symptoms worsen return call to [facility]. Intended Caller Action: Other: appointment request Instructions Name Dates Details Instructions not documented Encounters Appointment; JOSELO VARGAS M.D. On: 24-Apr-2017 12:00 Encounter Diagnosis: Problem not documented Appointment; JOSELO VARGAS M.D. On: 26-Jun-2017 13:30 Encounter Diagnosis: Problem not documented Appointment; BARBARA PLUMMER M.D. On: 27-Jul-2017 10:3 0 Encounter Diagnosis: [...] Encounter Diagnosis: Problem not documented Appointment; BARBARA PLUMMER M.D. On: 30-Nov-2017 13:0 0 Encounter Diagnosis: [...] Encounter Diagnosis: Problem not documented Appointment; BARBARA PLUMMER M.D. On: 26-Nov-2018 10:3 0 Encounter Diagnosis: Problem not documented Appointment; [facility], NON-INVASIVE On: 26-Nov-2018 13:30 Encounter Diagnosis: Problem not documented Appointment; JOSELO VARGAS M.D. On: 27-Nov-2018 10:30 Encounter Diagnosis: Problem not documented Appointment; NATALIE CEDENO M.D. On: 27-Nov-2018 13:45 Encounter Diagnosis: Problem not documented Appointment; [facility], TCM On: 20-Dec-2018 11:30 Encounter Diagnosis: Problem not [...]
--- OUTSIDE RECORDS SUMMARY | 2019-07-21 22:17 | XMS REPORT | Summary of Care ---
:1985 Author Organization [facility] Address [address] [place] [address] Care Team Providers Name Role Phone MARILIA Abbott Unavailable Unavailable NAHUM Abbott Unavailable Unavailable ALICIA Abbott Unavailable Philippe Henderson MD Unavailable Philippe VARGAS MD Unavailable Philippe CEDENO MD [place] Unavailable Unavailable HUGO MARX Unavailable Unavailable MARILIA MARX Unavailable Unavailable HOMER MARX [place] Unavailable Unavailable Aislinn Abbott Unavailable Unavailable BETHANY Abbott Unavailable Unavailable NAHUM MARX [place] Unavailable Unavailable Unavailable Unavailable Unavailable Functional Status [...] symptoms in breast (611.79, N64.59) Status: Active Asthma (493.90, J45.909) Status: Active Auditory hallucinations (780.1, R44.0) S tatus: Active Scoliosis (737.30, M41.9) Status: Active Raynauds phenomenon (443.0, I73.00) Stat us: Active Cerebral palsy (343.9, G80.9) Status: Ac tive Flu vaccine need (V04.81, Z23) Status: A ctive Special Services Analysis Of Computerized Data Status: Active Anxiety (300.00, F41.9) Status: Active Erythromelalgia (443.82, I73.81) Status: Active Essential (primary) hypertension (401.9, I10) Status: Active Heart block (426.9, I45.9) Status: Activ e Hyperlipidemia (272.4, E78.5) Status: Ac tive Paroxysmal supraventricular tachycardia (427.0, I47.1) Status: Active Psychosis (298.9, F29) Status: Active Depression (311, F32.9) Status: Active Right ankle swelling (719.07, M25.471) S tatus: Active Palpitations (785.1, R00.2) Status: Acti ve Schizoaffective disorder, depressive type (295.70, F25.1) Status: Active Mild intellectual disability (317, F70) Status: Active Recurrent UTI (599.0, N39.0) Status: Act mari Tachycardia (785.0, R00.0) Status: Activ e Pruritus of vagina (698.1, N89.8) Status : Active Yeast infection (112.9, B37.9) Status: A ctive Heavy menses (626.2, N92.0) Status: Acti ve Urinary frequency (788.41, R35.0) Status : Active Gross hematuria (599.71, R31.0) Status: Active Hematuria (599.70, R31.9) Status: Active Allergic rhinitis (477.9, J30.9) Status: Active Arterial insufficiency (447.1, I77.1) St atus: Active Hypertrophy of breast (611.1, N62) Statu s: Active Irregular menses (626.4, N92.6) Status: Active Medications Name Dates Details Clopidogrel Bisulfate 75 MG Oral Tablet TAKE 1 TABLET BY MOUTH DAILY Quantity: 90 Refills: 1 BARBARA SIDHU M.D. Start : 21-Sep-2011 Active Albuterol Sulfate (2.5 MG/3ML) 0.083% Inhalation Nebulization Solution USE 1 VIAL VIA NEBULIZER EVERY 4 HOURS NEEDED . Quantity: 180 Refills: 3 NAHUM Abbott BARBARA Start : 07-Nov-2011 Active FLUoxetine HCl - 20 MG Oral Capsule TAKE ONE CAPSULE BY MOUTH DAILY Quantity: 90 Refills: 1 JOSELO VARGAS M.D. Start : 02-Feb-2015 Active Abilify 10 MG Oral Tablet TAKE 1/2 TAB THREE TIMES DAILY AND 1/2 TAB AT BEDTIME NEEDED Quantity: 60 Refills: 5 JOSELO VARGAS M.D. Start : 02-Feb-2015 Active Plavix TABS Refills: 0 Active Nystatin-Triamcinolone 363298-9.1 UNIT/GM-% External Cream APPLY SPARINGLY TO AFFECTED [...] Dates Details US Pelvis with Pelvis Transvaginal 10863 Date: 15-Apr-2019 History of Appendectomy Completed History of Cholecystectomy Completed History of Oophorectomy Completed Immunization Name Dates Details Influenza #1 on: 25-Feb-2007 Lot #: [id number] Td on: 25-Feb-2007 Lot #: [id number] Influenza on: 31-Dec-2007 Lot #: [id number] Influenza on: 03-Dec-2009 Lot #: [id number] Influenza on: 19-Dec-2010 Lot #: [id number] Fluzone Quadrivalent 0.5 ML Intramuscular Suspension on: Dec-2015 Lot #: [id number] Fluzone Quadrivalent 0.5 ML Intramuscular Suspension on: Dec-2016 Lot #: [id number] Fluzone Quadrivalent 0.5 ML Intramuscular Suspension on: Lot #: [id number] Fluzone Quadrivalent 0.5 ML Intramuscular Suspension P refilled Syringe on: 20-Dec-2018 Lot #: [id number] Family History Name Dates Details Family history of Hypertension (V17.49) Comments: Family History Status: Active Name Dates Details Family history of rheumatoid arthritis (V17.7, Z82.61) Status: Active Name Dates Details Family history of hypertension (V17.49, Z82.49) Status: Active Social History Name Dates Details - Status: Name Dates Details Never smoker Never smoker Never smoker Never smoker Vital Signs Date Test Result Details [id number] BP Systolic 122 mm[Hg] Status: Comment s: [...] 13:00 Encounter Diagnosis: Problem not documented Appointment; JORID WONG M.D. On: 09-Sep-2018 9:2 0 Encounter Diagnosis: Problem not documented Appointment; BARBARA SIDHU M.D. On: 26-Nov-2018 10:3 0 Encounter Diagnosis: Problem not documented Appointment; [facility], NON-INVASIVE On: 26-Nov-2018 13:30 Encounter Diagnosis: Problem not documented Appointment; JOSELO VARGAS M.D. On: 27-Nov-2018 10:30 Encounter Diagnosis: Problem not documented Appointment; NATALIE CEDENO M.D. On: 27-Nov-2018 13:45 Encounter Diagnosis: Problem not documented Appointment; [facility] On: 20-Dec-2018 11:30 Encounter Diagnosis: Problem not [...]
--- OUTSIDE RECORDS SUMMARY | 2019-07-21 22:18 | XMS REPORT | Summary of Care ---
:1985 Author Organization [facility] Address [address] [place] [address] Care Team Providers Name Role Phone MARILIA Abbott Unavailable Unavailable NAHUM Abbott Unavailable Unavailable ALICIA Abbott Unavailable Philippe Henderson MD Unavailable Philippe VARGAS MD Unavailable Philippe CEDENO MD [place] Unavailable Unavailable HUGO MARX Unavailable Unavailable MARILIA MARX Unavailable Unavailable HOMER MARX [place] Unavailable Unavailable CESILIA MARX Unavailable Unavailable Aislinn Abbott Unavailable Unavailable BETHANY Abbott Unavailable Unavailable NAHUM MARX [place] Unavailable Unavailable Unavailable Unavailable Unavailable Functional Status [...] s: Active Asthma (493.90, J45.909) Status: Active Arterial insufficiency (447.1, I77.1) St atus: Active Scoliosis (737.30, M41.9) Status: Active Raynauds phenomenon (443.0, I73.00) Stat us: Active Cerebral palsy (343.9, G80.9) Status: Ac tive Special Services Analysis Of Computerized Data Status: Active Anxiety (300.00, F41.9) Status: Active Erythromelalgia (443.82, I73.81) Status: Active Essential (primary) hypertension (401.9, I10) Status: Active Heart block (426.9, I45.9) Status: Activ e Hyperlipidemia (272.4, E78.5) Status: Ac tive Paroxysmal supraventricular tachycardia (427.0, I47.1) Status: Active Psychosis (298.9, F29) Status: Active Depression (311, F32.9) Status: Active Palpitations (785.1, R00.2) Status: Acti ve Urinary frequency (788.41, R35.0) Status : Active Recurrent UTI (599.0, N39.0) Status: Act mari Tachycardia (785.0, R00.0) Status: Activ e Pruritus of vagina (698.1, N89.8) Status : Active Yeast infection (112.9, B37.9) Status: A ctive Irregular menses (626.4, N92.6) Status: Active Mild intellectual disability (317, F70) Status: Active Schizoaffective disorder, depressive type (295.70, F25.1) Status: Active Right ankle swelling (719.07, M25.471) S tatus: Active Flu vaccine need (V04.81, Z23) Status: A ctive Allergic rhinitis (477.9, J30.9) Status: Active Auditory hallucinations (780.1, R44.0) S tatus: Active Gross hematuria (599.71, R31.0) Status: Active Hematuria (599.70, R31.9) Status: Active Heavy menses (626.2, N92.0) Status: Acti ve Medications Name Dates Details Clopidogrel Bisulfate 75 MG Oral Tablet TAKE 1 TABLET BY MOUTH DAILY Quantity: 90 Refills: 1 NAHUM Abbott BARBARA Start : 21-Sep-2011 Active Albuterol Sulfate (2.5 [...] Active Plavix TABS Refills: 0 Active Nystatin-Triamcinolone 244772-5.1 UNIT/GM-% External Cream APPLY SPARINGLY TO AFFECTED [...] Dates Details US Pelvis with Pelvis Transvaginal 25966 Date: 15-Apr-2019 History of Appendectomy Completed History of Cholecystectomy Completed History of Oophorectomy Completed Immunization Name Dates Details Influenza #1 on: 25-Feb-2007 Lot #: [id number] Td on: 25-Feb-2007 Lot #: [id number] Influenza on: 31-Dec-2007 Lot #: [id number] Influenza on: 03-Dec-2009 Lot #: [id number] Influenza on: 19-Dec-2010 Lot #: [id number] Fluzone Quadrivalent 0.5 ML Intramuscular Suspension on: Dec-2015 Lot #: [id number] Fluzone Quadrivalent 0.5 ML Intramuscular Suspension on: Dec-2016 Lot #: [id number] Fluzone Quadrivalent 0.5 ML Intramuscular Suspension on: Lot #: [id number] Fluzone Quadrivalent 0.5 ML Intramuscular Suspension P refilled Syringe on: 20-Dec-2018 Lot #: [id number] Family History Name Dates Details Family history of Hypertension (V17.49) Comments: Family History Status: Active Name Dates Details Family history of rheumatoid arthritis (V17.7, Z82.61) Status: Active Name Dates Details Family history of hypertension (V17.49, Z82.49) Status: Active Social History Name Dates Details - Status: Name Dates Details Never smoker Never smoker Never smoker Never smoker Vital Signs Date Test Result Details [id number] BP Systolic 122 mm[Hg] Status: Comment s: [...] Appointment; JOSELO VARGAS M.D. On: 29-Apr-2019 11:00 Appointment; FRED VERA M.D. On: 02-May-2019 15 :00 Instructions Name Dates Details Instructions not documented Encounters Appointment; JOSELO VARGAS M.D. On: 26-Jun-2017 13:30 [...] 13:45 Encounter Diagnosis: Problem not documented Appointment; [facility], TCM On: 20-Dec-2018 11:30 Encounter Diagnosis: Problem [...]
--- OUTSIDE RECORDS SUMMARY | 2019-07-21 22:18 | XMS REPORT | Summary of Care ---
:1985 Author Organization [facility] Address [address] [place] [address] Care Team Providers Name Role Phone MARILIA Abbott Unavailable Unavailable NAHUM Abbott Unavailable Philippe VARGAS M.D. Unavailable Philippe Henderson MD Unavailable Philippe VARGAS MD Unavailable Philippe CEDENO MD [place] Unavailable Unavailable HUGO MARX Unavailable Unavailable MARILIA MARX Unavailable Unavailable HOMER MARX [place] Unavailable Unavailable CESILIA MARX Unavailable Unavailable Aislinn Abbott Unavailable Unavailable BETHANY Abbott Unavailable Unavailable NAHUM MARX [place] Unavailable Unavailable Unavailable Unavailable Unavailable Functional Status [...] of breast (611.1, N62) Statu s: Active Auditory hallucinations (780.1, R44.0) S tatus: Active Arterial insufficiency (447.1, I77.1) St atus: Active Scoliosis (737.30, M41.9) Status: Active Raynauds phenomenon (443.0, I73.00) Stat us: Active Cerebral palsy (343.9, G80.9) Status: Ac tive Allergic rhinitis (477.9, J30.9) Status: Active Flu vaccine need (V04.81, Z23) Status: A ctive Psychosis (298.9, F29) Status: Active Depression (311, [...] mari Tachycardia (785.0, R00.0) Status: Activ e Asthma (493.90, J45.909) Status: Active Paroxysmal supraventricular tachycardia (427.0, I47.1) Status: Active Hyperlipidemia (272.4, E78.5) Status: Ac tive Heart block (426.9, I45.9) Status: Activ e Essential (primary) hypertension (401.9, I10) Status: Active Erythromelalgia (443.82, I73.81) Status: Active Anxiety (300.00, F41.9) Status: Active Special Dr. Services Analysis Of Computerized Data Status: Active Pruritus of vagina (698.1, N89.8) Status : Active Yeast infection (112.9, B37.9) Status: A ctive Irregular menses (626.4, N92.6) Status: Active Heavy menses (626.2, N92.0) Status: Acti ve Medications Name Dates Details Clopidogrel Bisulfate 75 MG Oral Tablet TAKE 1 TABLET BY MOUTH DAILY Quantity: 90 Refills: 1 BARBARA SIDHU M.D. Start : 21-Sep-2011 Active FLUoxetine HCl - 20 MG Oral Capsule TAKE ONE CAPSULE BY MOUTH DAILY Quantity: 90 Refills: 1 OJSELO VARGAS M.D. Start : 02-Feb-2015 Active Abilify 10 MG Oral Tablet TAKE 1/2 TAB THREE TIMES DAILY AND 1/2 TAB AT BEDTIME NEEDED Quantity: 60 Refills: 5 JOSELO VARGAS M.D. Start : 02-Feb-2015 Active Plavix TABS Refills: 0 Active Nystatin-Triamcinolone 937297-1.1 UNIT/GM-% External Cream APPLY SPARINGLY TO AFFECTED [...] Dates Details US Pelvis with Pelvis Transvaginal 29297 Date: 15-Apr-2019 History of Appendectomy Completed History of Cholecystectomy Completed History of Oophorectomy Completed Immunization Name Dates Details Td on: 25-Feb-2007 Lot #: [id number] Influenza #1 on: 25-Feb-2007 Lot #: [id number] Influenza on: 31-Dec-2007 Lot #: [id number] Influenza on: 03-Dec-2009 Lot #: [id number] Influenza on: 19-Dec-2010 Lot #: [id number] Fluzone Quadrivalent 0.5 ML Intramuscular Suspension on: Dec-2015 Lot #: [id number] Fluzone Quadrivalent 0.5 ML Intramuscular Suspension on: Dec-2016 Lot #: [id number] Fluzone Quadrivalent 0.5 ML Intramuscular Suspension on: Lot #: [id number] Fluzone Quadrivalent 0.5 ML Intramuscular Suspension P refilled Syringe on: 20-Dec-2018 Lot #: [id number] Family History Name Dates Details Family history of Hypertension (V17.49) Comments: Family History Status: Active Name Dates Details Family history of rheumatoid arthritis (V17.7, Z82.61) Status: Active Name Dates Details Family history of hypertension (V17.49, Z82.49) Status: Active Social History Name Dates Details - Status: Name Dates Details Never smoker Never smoker Never smoker Never smoker Vital Signs Date Test Result Details [id number] BP Systolic 122 mm[Hg] Status: Comment s: [...] 13:45 Encounter Diagnosis: Problem not documented Appointment; [facility], TCM On: 20-Dec-2018 11:30 Encounter [...]
--- OUTSIDE RECORDS SUMMARY | 2019-07-21 22:19 | XMS REPORT | Summary of Care ---
:1985 Author Organization [facility] Address [address] [place] [address] Care Team Providers Name Role Phone MARILIA Abbott Unavailable Unavailable NAHUM Abbott Unavailable Unavailable ALICIA Abbott Unavailable Philippe Henderson MD Unavailable Philippe VARGAS MD Unavailable Philippe CEDENO MD [place] Unavailable Unavailable HUGO MARX Unavailable Unavailable MARILIA MARX Unavailable Unavailable HOMER MARX [place] Unavailable Unavailable CESILIA MARX Unavailable Unavailable Aislinn Abbott Unavailable Unavailable BETHANY Abbott Unavailable Unavailable NAHUM MARX [place] Unavailable Unavailable Unavailable Unavailable Unavailable Functional Status [...] Flu vaccine need (V04.81, Z23) Status: A ctmari [address] Dr. Services Analysis Of Computerized Data [...] Active Plavix TABS Refills: 0 Active Nystatin-Triamcinolone 169380-0.1 UNIT/GM-% External Cream APPLY SPARINGLY TO AFFECTED [...] Dates Details US Pelvis with Pelvis Transvaginal 53909 Date: 15-Apr-2019 History of Appendectomy Completed History of Cholecystectomy Completed History of Oophorectomy Completed Immunization Name Dates Details Influenza #1 on: 25-Feb-2007 Lot #: [id number] Td on: 25-Feb-2007 Lot #: [id number] Influenza on: 31-Dec-2007 Lot #: [id number] Influenza on: 03-Dec-2009 Lot #: [id number] Influenza on: 19-Dec-2010 Lot #: [id number] Fluzone Quadrivalent 0.5 ML Intramuscular Suspension on: Dec-2015 Lot #: [id number] Fluzone Quadrivalent 0.5 ML Intramuscular Suspension on: Dec-2016 Lot #: [id number] Fluzone Quadrivalent 0.5 ML Intramuscular Suspension on: Lot #: [id number] Fluzone Quadrivalent 0.5 ML Intramuscular Suspension P refilled Syringe on: 20-Dec-2018 Lot #: [id number] Family History Name Dates Details Family history of Hypertension (V17.49) Comments: Family History Status: Active Name Dates Details Family history of rheumatoid arthritis (V17.7, Z82.61) Status: Active Name Dates Details Family history of hypertension (V17.49, Z82.49) Status: Active Social History Name Dates Details - Status: Name Dates Details Never smoker Never smoker Never smoker Never smoker Vital Signs Date Test Result Details [id number] BP Systolic 122 mm[Hg] Status: Comment s: [...] Planned Goals not documented Planned Encounters Appointment; FRED VERA M.D. On: 02-May-2019 15 :00 Appointment; JOSELO VARGAS M.D. On: 27-May-2019 14:30 Instructions Name Dates Details Instructions not documented [...] 13:45 Encounter Diagnosis: Problem not documented Appointment; [facility], TCM On: 20-Dec-2018 11:30 Encounter [...]
--- OUTSIDE RECORDS SUMMARY | 2019-07-21 22:20 | XMS REPORT | Summary of Care ---
:1985 Author Organization [facility] Address [address] [place] [address] Care Team Providers Name Role Phone MARILIA Abbott Unavailable Unavailable NAHUM Abbott Unavailable Unavailable ALICIA Abbott Unavailable Philippe Henderson MD Unavailable Philippe VARGAS MD Unavailable Philippe CEDENO MD [place] Unavailable Unavailable HUGO MARX Unavailable Unavailable MARILIA MARX Unavailable Unavailable HOMER MARX [place] Unavailable Unavailable CESILIA MARX Unavailable Unavailable Aislinn Abbott Unavailable Unavailable BETHANY Abbott Unavailable Unavailable NAHUM MARX [place] Unavailable Unavailable Unavailable Unavailable Unavailable Functional Status [...] Active Plavix TABS Refills: 0 Active Nystatin-Triamcinolone 991558-9.1 UNIT/GM-% External Cream APPLY SPARINGLY TO AFFECTED [...] Dates Details US Pelvis with Pelvis Transvaginal 27697 Date: 15-Apr-2019 History of Appendectomy Completed History of Cholecystectomy Completed History of Oophorectomy Completed Immunization Name Dates Details Influenza #1 on: 25-Feb-2007 Lot #: [id number] Td on: 25-Feb-2007 Lot #: [id number] Influenza on: 31-Dec-2007 Lot #: [id number] Influenza on: 03-Dec-2009 Lot #: [id number] Influenza on: 19-Dec-2010 Lot #: [id number] Fluzone Quadrivalent 0.5 ML Intramuscular Suspension on: Dec-2015 Lot #: [id number] Fluzone Quadrivalent 0.5 ML Intramuscular Suspension on: Dec-2016 Lot #: [id number] Fluzone Quadrivalent 0.5 ML Intramuscular Suspension on: Lot #: [id number] Fluzone Quadrivalent 0.5 ML Intramuscular Suspension P refilled Syringe on: 20-Dec-2018 Lot #: [id number] Family History Name Dates Details Family history of Hypertension (V17.49) Comments: Family History Status: Active Name Dates Details Family history of rheumatoid arthritis (V17.7, Z82.61) Status: Active Name Dates Details Family history of hypertension (V17.49, Z82.49) Status: Active Social History Name Dates Details - Status: Name Dates Details Never smoker Never smoker Never smoker Never smoker Vital Signs Date Test Result Details 12-Srt-147416:33 BP Systolic 122 mm[Hg] Status: Comment s: [...] Encounter Diagnosis: Problem not documented Appointment; BARBARA SIHDU M.D. On: 30-Nov-2017 13:0 0 Encounter Diagnosis: [...] 13:45 Encounter Diagnosis: Problem not documented Appointment; [facility], TCM On: 20-Dec-2018 11:30 Encounter Diagnosis: Problem not documented Appointment; ABIEL HALL NP On: 25-Dec-2018 13: 30 Encounter Diagnosis: Problem not documented Appointment; MARION CAPELLAN M.D. On: 31-Dec-2018 15: 00 Encounter Diagnosis: Problem not documented Appointment; ANABEL ARIAS M.D. On: 26-Feb-2019 10:30 Encounter Diagnosis: Problem not documented Appointment; ASHLEY CORONEL M.D. On: 15-Apr-2019 15:40 Encounter Diagnosis: Problem not documented
--- OUTSIDE RECORDS SUMMARY | 2019-07-21 22:21 | XMS REPORT | Summary of Care ---
:1985 Author Organization [facility] Address [address] [place] [address] Care Team Providers Name Role Phone MARILIA Abbott Unavailable Unavailable NAHUM Abbott Unavailable Unavailable ALICIA Abbott Unavailable Philippe Henderson MD Unavailable Philippe VARGAS MD Unavailable Philippe CEDENO MD [place] Unavailable Unavailable HUGO MARX Unavailable Unavailable MARILIA MARX Unavailable Unavailable HOMER MARX [place] Unavailable Unavailable CESILIA MARX Unavailable Unavailable Aislinn Abbott Unavailable Unavailable BETHANY Abbott Unavailable Unavailable NAHUM MARX [place] Unavailable Unavailable Unavailable Unavailable Unavailable Functional Status [...] Active Plavix TABS Refills: 0 Active Nystatin-Triamcinolone 700509-5.1 UNIT/GM-% External Cream APPLY SPARINGLY TO AFFECTED [...] Dates Details US Pelvis with Pelvis Transvaginal 57367 Date: 15-Apr-2019 History of Appendectomy Completed History of Cholecystectomy Completed History of Oophorectomy Completed Immunization Name Dates Details Influenza #1 on: 25-Feb-2007 Lot #: [id number] Td on: 25-Feb-2007 Lot #: [id number] Influenza on: 31-Dec-2007 Lot #: [id number] Influenza on: 03-Dec-2009 Lot #: [id number] Influenza on: 19-Dec-2010 Lot #: [id number] Fluzone Quadrivalent 0.5 ML Intramuscular Suspension on: Dec-2015 Lot #: [id number] Fluzone Quadrivalent 0.5 ML Intramuscular Suspension on: Dec-2016 Lot #: [id number] Fluzone Quadrivalent 0.5 ML Intramuscular Suspension on: Lot #: [id number] Fluzone Quadrivalent 0.5 ML Intramuscular Suspension P refilled Syringe on: 20-Dec-2018 Lot #: [id number] Family History Name Dates Details Family history of Hypertension (V17.49) Comments: Family History Status: Active Name Dates Details Family history of rheumatoid arthritis (V17.7, Z82.61) Status: Active Name Dates Details Family history of hypertension (V17.49, Z82.49) Status: Active Social History Name Dates Details - Status: Name Dates Details Never smoker Never smoker Never smoker Never smoker Vital Signs Date Test Result Details 52-Oes-402269:33 BP Systolic 122 mm[Hg] Status: Comment s: [...] Details Instructions not documented Encounters Appointment; JOSELO VARAGS M.D. On: 26-Jun-2017 13:30 Encounter Diagnosis: Problem [...] 13:45 Encounter Diagnosis: Problem not documented Appointment; [facility], TCM On: 20-Dec-2018 11:30 Encounter Diagnosis: Problem [...]
--- OUTSIDE RECORDS SUMMARY | 2019-07-21 22:22 | XMS REPORT | Summary of Care ---
:1985 Author Organization [facility] Address [address] [place] [address] Care Team Providers Name Role Phone MARILIA [...] not documented Status: Problems Name Dates Details Urinary frequency (788.41, R35.0) Status : Active Hematuria (599.70, R31.9) Status: Active Normal routine physical examination (V70.0, Z00.00) Status: Active Irregular menses (626.4, N92.6) Status: Active Flu vaccine need (V04.81, Z23) Status: A ctive Yeast infection (112.9, B37.9) Status: A ctive Essential (primary) hypertension (401.9, I10) Status: Active Erythromelalgia (443.82, I73.81) Status: Active Heart block (426.9, I45.9) Status: Activ e Hyperlipidemia (272.4, E78.5) Status: Ac tive Anxiety (300.00, F41.9) Status: Active Arterial insufficiency (447.1, I77.1) St atus: Active Paroxysmal supraventricular tachycardia (427.0, I47.1) Status: Active Scoliosis (737.30, M41.9) Status: Active Special [employer] Computerized Data Status: Active Oligomenorrhea (626.1, N91.5) Status: Ac tive Hypertrophy of breast (611.1, N62) Statu s: Active Pruritus of vagina (698.1, N89.8) Status : Active Palpitations (785.1, R00.2) Status: Acti ve Allergic rhinitis (477.9, J30.9) Status: Active Tachycardia (785.0, R00.0) Status: Activ e Right ankle swelling (719.07, M25.471) S tatus: Active Recurrent UTI (599.0, N39.0) Status: Act mari Gross hematuria (599.71, R31.0) Status: Active Asthma (493.90, J45.909) Status: Active Auditory hallucinations (780.1, R44.0) S tatus: Active Esophageal reflux (530.81, K21.9) Status : Active Cerebral palsy (343.9, G80.9) Status: Ac tive Raynauds phenomenon (443.0, I73.00) Stat us: Active Other signs and symptoms in breast (611.79, N64.59) Status: Active Heavy menses (626.2, N92.0) Status: Acti ve Depression (311, F32.9) Status: Active Psychosis (298.9, F29) Status: Active 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 Start : 02-Feb-2015 Active Abilify 10 MG Oral Tablet TAKE 1/2 TAB THREE TIMES DAILY AND 1/2 TAB AT BEDTIME NEEDED Quantity: 60 Refills: 5 JOSELO VARGAS M.D. Start : 02-Feb-2015 Active Nystatin-Triamcinolone 447080-1.1 UNIT/GM-% External Cream APPLY SPARINGLY TO AFFECTED AREA(S) TWICE DAILY Quantity: 1 Refills: 0 MARINO CAPELLAN M.D. Start : 31-Dec-2018 Active Plavix TABS Refills: 0 Active Albuterol Sulfate (2.5 MG/3ML) 0.083% Inhalation Nebulization Solution USE 1 VIAL VIA NEBULIZER EVERY 4 HOURS NEEDED . Quantity: 180 Refills: 3 BARBARA SIDHU M.D. Start : 07-Nov-2011 Active Clopidogrel Bisulfate 75 MG Oral Tablet TAKE 1 TABLET BY MOUTH DAILY Quantity: 90 Refills: 1 BARBARA SIDHU M.D. Start : 21-Sep-2011 Active Allergies and Adverse Reactions Name Dates [...] Dates Details US Pelvis with Pelvis Transvaginal 73348 Date: 15-Apr-2019 History of Cholecystectomy Completed History of Appendectomy Completed History of Oophorectomy Completed Immunization Name Dates Details Influenza #1 on: 25-Feb-2007 Lot #: [id number] Td on: 25-Feb-2007 Lot #: [id number] Influenza on: 31-Dec-2007 Lot #: [id number] Influenza on: 03-Dec-2009 Lot #: [id number] Influenza on: 19-Dec-2010 Lot #: [id number] Fluzone Quadrivalent 0.5 ML Intramuscular Suspension on: Dec-2015 Lot #: [id number] Fluzone Quadrivalent 0.5 ML Intramuscular Suspension on: Dec-2016 Lot #: [id number] Fluzone Quadrivalent 0.5 ML Intramuscular Suspension on: Lot #: [id number] Fluzone Quadrivalent 0.5 ML Intramuscular Suspension P refilled Syringe on: 20-Dec-2018 Lot #: [id number] Family History Name Dates Details Family history of Hypertension (V17.49) Comments: Family History Status: Active Name Dates Details Family history of rheumatoid arthritis (V17.7, Z82.61) Status: Active Name Dates Details Family history of hypertension (V17.49, Z82.49) Status: Active Social History Name Dates Details - Status: Name Dates Details Never smoker Never smoker Never smoker Never smoker Vital Signs Date Test Result Details 06-Hmd-645958:33 BP Systolic 122 mm[Hg] Status: Comment s: [...] Encounter Diagnosis: Problem not documented Appointment; [facility], TCM On: 20-Dec-2018 11:30 Encounter Diagnosis: Problem [...]
--- OUTSIDE RECORDS SUMMARY | 2019-07-21 22:22 | XMS REPORT | Summary of Care ---
:1985 Author Organization [facility] Address [address] [place] [address] Care Team Providers Name Role Phone MARILIA Abbott Unavailable Unavailable NAHUM Abbott Unavailable Unavailable ALICIA Abbott Unavailable Philippe Henderson MD Unavailable Philippe VARGAS MD Unavailable Philippe CEDENO MD [place] Unavailable Unavailable HUGO MARX Unavailable Unavailable MARILIA MARX Unavailable Unavailable HOMER MARX [place] Unavailable Unavailable CESILIA MARX Unavailable Unavailable Aislinn Abbott Unavailable Unavailable BETHANY Abbott Unavailable Unavailable NAHUM MARX [place] Unavailable Unavailable Unavailable Unavailable Unavailable Functional Status [...] Active Plavix TABS Refills: 0 Active Nystatin-Triamcinolone 133960-0.1 UNIT/GM-% External Cream APPLY SPARINGLY TO AFFECTED [...] Dates Details US Pelvis with Pelvis Transvaginal 62772 Date: 15-Apr-2019 History of Appendectomy Completed History of Cholecystectomy Completed History of Oophorectomy Completed Immunization Name Dates Details Influenza #1 on: 25-Feb-2007 Lot #: [id number] Td on: 25-Feb-2007 Lot #: [id number] Influenza on: 31-Dec-2007 Lot #: [id number] Influenza on: 03-Dec-2009 Lot #: [id number] Influenza on: 19-Dec-2010 Lot #: [id number] Fluzone Quadrivalent 0.5 ML Intramuscular Suspension on: Dec-2015 Lot #: [id number] Fluzone Quadrivalent 0.5 ML Intramuscular Suspension on: Dec-2016 Lot #: [id number] Fluzone Quadrivalent 0.5 ML Intramuscular Suspension on: Lot #: [id number] Fluzone Quadrivalent 0.5 ML Intramuscular Suspension P refilled Syringe on: 20-Dec-2018 Lot #: [id number] Family History Name Dates Details Family history of Hypertension (V17.49) Comments: Family History Status: Active Name Dates Details Family history of rheumatoid arthritis (V17.7, Z82.61) Status: Active Name Dates Details Family history of hypertension (V17.49, Z82.49) Status: Active Social History Name Dates Details - Status: Name Dates Details Never smoker Never smoker Never smoker Never smoker Vital Signs Date Test Result Details 45-Iwq-561690:33 BP Systolic 122 mm[Hg] Status: Comment s: [...] Encounter Diagnosis: Problem not documented Appointment; JOSELO VARGSA M.D. On: 23-Apr-2018 13:00 Encounter Diagnosis: Problem [...] 13:45 Encounter Diagnosis: Problem not documented Appointment; [facility], TCM On: 20-Dec-2018 11:30 Encounter Diagnosis: [...]
--- OUTSIDE RECORDS SUMMARY | 2019-07-21 22:23 | XMS REPORT | Summary of Care ---
:1985 Author Organization [place] [facility] Address [address] [place] [address] Care Team Providers Name Role Phone MARILIA Abbott Unavailable Unavailable NAHUM Abbott Unavailable Philippe VARGAS M.D. Unavailable Philippe Henderson MD Unavailable Philippe VARGAS MD Unavailable Philippe CEDENO MD [place] Unavailable Unavailable HUGO MARX Unavailable Unavailable MARILIA MARX Unavailable Unavailable HOMER MARX [place] Unavailable Unavailable CESILIA MARX Unavailable Unavailable Aislinn [...] F25.1) Status: Active Medications Name Dates Details Clopidogrel [...] Active Plavix TABS Refills: 0 Active Nystatin-Triamcinolone 256341-6.1 UNIT/GM-% External Cream APPLY SPARINGLY TO AFFECTED [...] Dates Details US Pelvis with Pelvis Transvaginal 89768 Date: 15-Apr-2019 History of Cholecystectomy Completed History of Appendectomy Completed History of Oophorectomy Completed Immunization Name Dates Details Influenza #1 on: 25-Feb-2007 Lot #: [id number] Td on: 25-Feb-2007 Lot #: [id number] Influenza on: 31-Dec-2007 Lot #: [id number] Influenza on: 03-Dec-2009 Lot #: [id number] Influenza on: 19-Dec-2010 Lot #: [id number] Fluzone Quadrivalent 0.5 ML Intramuscular Suspension on: Dec-2015 Lot #: [id number] Fluzone Quadrivalent 0.5 ML Intramuscular Suspension on: Dec-2016 Lot #: [id number] Fluzone Quadrivalent 0.5 ML Intramuscular Suspension on: Lot #: [id number] Fluzone Quadrivalent 0.5 ML Intramuscular Suspension P refilled Syringe on: 20-Dec-2018 Lot #: [id number] Family History Name Dates Details Family history of Hypertension (V17.49) Comments: Family History Status: Active Name Dates Details Family history of rheumatoid arthritis (V17.7, Z82.61) Status: Active Name Dates Details Family history of hypertension (V17.49, Z82.49) Status: Active Social History Name Dates Details - Status: Name Dates Details Never smoker Never smoker Never smoker Never smoker Vital Signs Date Test Result Details 93-Gkh-732781:33 BP Systolic 122 mm[Hg] Status: Comment s: [...] VERA M.D. On: 02-May-2019 15 :00 Appointment; STEPHANY SR M.D. On: 20-May-2019 8 :40 Appointment; JOSELO VARGAS M.D. On: 27-May-2019 14:30 [...] 0 Encounter Diagnosis: Problem not documented Appointment; [facility] On: 26-Nov-2018 13:30 Encounter Diagnosis: Problem not documented Appointment; JOSELO VARGAS M.D. On: 27-Nov-2018 10:30 Encounter Diagnosis: Problem not documented Appointment; NATALIE CEDENO M.D. On: 27-Nov-2018 13:45 Encounter Diagnosis: Problem not documented Appointment; [facility], TCM On: 20-Dec-2018 11:30 Encounter Diagnosis: [...]
--- OUTSIDE RECORDS SUMMARY | 2019-07-21 22:24 | XMS REPORT | Summary of Care ---
:1985 Author Organization [place] [facility] Address [address] [place] [address] Care Team Providers Name Role Phone MARILIA Abbott Unavailable Unavailable NAHUM Abbott Unavailable Philippe VARGAS M.D. Unavailable Philippe Henderson MD Unavailable Philippe VARGAS MD Unavailable Philippe CEDENO MD [place] Unavailable Unavailable HUGO MARX Unavailable Unavailable MARILIA MARX Unavailable Unavailable HOMER MARX [place] Unavailable Unavailable CESILIA MARX Unavailable Unavailable Aislinn Abbott Unavailable Unavailable BETHANY Abbott Unavailable Unavailable NAHUM MARX [place] Unavailable Unavailable Unavailable Unavailable Unavailable Functional Status [...] Active Plavix TABS Refills: 0 Active Nystatin-Triamcinolone 600874-5.1 UNIT/GM-% External Cream APPLY SPARINGLY TO AFFECTED [...] Dates Details US Pelvis with Pelvis Transvaginal 82638 Date: 15-Apr-2019 History of Cholecystectomy Completed History of Appendectomy Completed History of Oophorectomy Completed Immunization Name Dates Details Influenza #1 on: 25-Feb-2007 Lot #: [id number] Td on: 25-Feb-2007 Lot #: [id number] Influenza on: 31-Dec-2007 Lot #: [id number] Influenza on: 03-Dec-2009 Lot #: [id number] Influenza on: 19-Dec-2010 Lot #: [id number] Fluzone Quadrivalent 0.5 ML Intramuscular Suspension on: Dec-2015 Lot #: [id number] Fluzone Quadrivalent 0.5 ML Intramuscular Suspension on: Dec-2016 Lot #: [id number] Fluzone Quadrivalent 0.5 ML Intramuscular Suspension on: Lot #: [id number] Fluzone Quadrivalent 0.5 ML Intramuscular Suspension P refilled Syringe on: 20-Dec-2018 Lot #: [id number] Family History Name Dates Details Family history of Hypertension (V17.49) Comments: Family History Status: Active Name Dates Details Family history of rheumatoid arthritis (V17.7, Z82.61) Status: Active Name Dates Details Family history of hypertension (V17.49, Z82.49) Status: Active Social History Name Dates Details - Status: Name Dates Details Never smoker Never smoker Never smoker Never smoker Vital Signs Date Test Result Details 28-Yys-658379:33 BP Systolic 122 mm[Hg] Status: Comment s: [...] Appointment; JOSELO VARGAS M.D. On: 27-May-2019 14:30 Appointment; ABIEL HALL NP On: 03-Jun-2019 11 :00 Instructions Name Dates Details Instructions not [...] 0 Encounter Diagnosis: Problem not documented Appointment; [facility] On: 26-Nov-2018 13:30 Encounter Diagnosis: Problem not documented Appointment; JOSELO VARGAS M.D. On: 27-Nov-2018 10:30 Encounter Diagnosis: Problem not documented Appointment; NATALIE CEDENO M.D. On: 27-Nov-2018 13:45 Encounter Diagnosis: Problem not documented Appointment; [facility], TCM On: 20-Dec-2018 11:30 Encounter Diagnosis: Problem [...]
--- OUTSIDE RECORDS SUMMARY | 2019-07-21 22:24 | XMS REPORT | Summary of Care ---
:1985 Author Organization [facility] [facility] Address [address] [place] [address] Care Team Providers Name Role Phone MARILIA Abbott Unavailable Unavailable NAHUM Abbott Unavailable Philippe VARGAS M.D. Unavailable Philippe Henderson MD Unavailable Philippe VARGAS MD Unavailable Philippe CEDENO MD [place] Unavailable Unavailable HUGO MARX Unavailable Unavailable MARILIA MARX Unavailable Unavailable HOMER MARX [place] Unavailable Unavailable CESILIA MARX Unavailable Unavailable Aislinn Abbott Unavailable Unavailable BETHANY Abbott Unavailable Unavailable NAHUM MARX [place] Unavailable Unavailable Unavailable Unavailable Unavailable Functional Status [...] Active Plavix TABS Refills: 0 Active Nystatin-Triamcinolone 562198-4.1 UNIT/GM-% External Cream APPLY SPARINGLY TO AFFECTED AREA(S) TWICE DAILY Quantity: 1 Refills: 0 AMRINO CAPELLAN M.D. Start : 31-Dec-2018 Active Allergies [...] Dates Details US Pelvis with Pelvis Transvaginal 31332 Date: 15-Apr-2019 History of Cholecystectomy Completed History of Appendectomy Completed History of Oophorectomy Completed Immunization Name Dates Details Influenza #1 on: 25-Feb-2007 Lot #: [id number] Td on: 25-Feb-2007 Lot #: [id number] Influenza on: 31-Dec-2007 Lot #: [id number] Influenza on: 03-Dec-2009 Lot #: [id number] Influenza on: 19-Dec-2010 Lot #: [id number] Fluzone Quadrivalent 0.5 ML Intramuscular Suspension on: Dec-2015 Lot #: [id number] Fluzone Quadrivalent 0.5 ML Intramuscular Suspension on: Dec-2016 Lot #: [id number] Fluzone Quadrivalent 0.5 ML Intramuscular Suspension on: Lot #: [id number] Fluzone Quadrivalent 0.5 ML Intramuscular Suspension P refilled Syringe on: 20-Dec-2018 Lot #: [id number] Family History Name Dates Details Family history of Hypertension (V17.49) Comments: Family History Status: Active Name Dates Details Family history of rheumatoid arthritis (V17.7, Z82.61) Status: Active Name Dates Details Family history of hypertension (V17.49, Z82.49) Status: Active Social History Name Dates Details - Status: Name Dates Details Never smoker Never smoker Never smoker Never smoker Vital Signs Date Test Result Details [id number]-Rfu-482060:33 BP Systolic 122 mm[Hg] Status: Comment s: [...] JOSELO VARGAS M.D. On: 27-May-2019 14:30 Appointment; BARBARA SIDHU M.D. On: 29-May-2019 10:4 5 Appointment; ABIEL HALL NP On: 03-Jun-2019 11 [...]
--- OUTSIDE RECORDS SUMMARY | 2019-07-21 22:25 | XMS REPORT | Summary of Care ---
:1985 Author Organization [place] [facility] Address [address] [place] [address] Care Team Providers Name Role Phone MARILIA Abbott Unavailable Unavailable NAHUM Abbott Unavailable Unavailable ALICIA Abbott Unavailable Philippe Henderson MD Unavailable Philippe VARGAS MD Unavailable Philippe CEDENO MD [place] Unavailable Unavailable HUGO MARX Unavailable Unavailable MARILIA MARX Unavailable Unavailable HOMER MARX [place] Unavailable Unavailable CESILIA MARX Unavailable Unavailable Aislinn Abbott Unavailable Unavailable BETHANY Abbott Unavailable Unavailable NAHUM MARX [place] Unavailable Unavailable Unavailable Unavailable Unavailable Functional Status [...] BARBARA SIDHU M.D. Start : 07-Nov-2011 Active Plavix TABS Refills: 0 Active Abilify 10 MG Oral Tablet TAKE 1/2 TAB THREE TIMES DAILY AND 1/2 TAB AT BEDTIME NEEDED Quantity: 60 Refills: 5 JOSELO VARGAS M.D. Start : 02-Feb-2015 Active FLUoxetine HCl - 20 MG Oral Capsule TAKE ONE CAPSULE BY MOUTH DAILY Quantity: 90 Refills: 1 JOSELO VARGAS M.D. Start : 02-Feb-2015 Active Nystatin-Triamcinolone 483451-6.1 UNIT/GM-% External Cream APPLY SPARINGLY TO AFFECTED [...] A08.4) Status: Resolved Procedures Procedure Dates Details History of Appendectomy Completed History of Cholecystectomy Completed History of Oophorectomy Completed Immunization Name Dates Details Td on: 25-Feb-2007 Lot #: [id number] Influenza #1 on: 25-Feb-2007 Lot #: [id number] Influenza on: 31-Dec-2007 Lot #: [id number] Influenza on: 03-Dec-2009 Lot #: [id number] Influenza on: 19-Dec-2010 Lot #: [id number] Fluzone Quadrivalent 0.5 ML Intramuscular Suspension on: Dec-2015 Lot #: [id number] Fluzone Quadrivalent 0.5 ML Intramuscular Suspension on: Dec-2016 Lot #: [id number] Fluzone Quadrivalent 0.5 ML Intramuscular Suspension on: Lot #: [id number] Fluzone Quadrivalent 0.5 ML Intramuscular Suspension P refilled Syringe on: 20-Dec-2018 Lot #: [id number] Family History Name Dates Details Family history of Hypertension (V17.49) Comments: Family History Status: Active Name Dates Details Family history of rheumatoid arthritis (V17.7, Z82.61) Status: Active Name Dates Details Family history of hypertension (V17.49, Z82.49) Status: Active Social History Name Dates Details - Status: Name Dates Details Never smoker Never smoker Never smoker Never smoker Vital Signs Date Test Result Details 57-Ugm-024787:33 BP Systolic 122 mm[Hg] Status: Comment s: [...] Encounter Diagnosis: Problem not documented Appointment; [facility], TCM On: 20-Dec-2018 11:30 Encounter Diagnosis: Problem [...]
--- OUTSIDE RECORDS SUMMARY | 2019-07-21 22:26 | XMS REPORT | Summary of Care ---
:1985 Author Name HOMER Abbott Address Unavailable Unavailable , Care Team Providers Name Role Phone MARILIA Abbott Unavailable Unavailable NAHUM Abbott Unavailable Unavailable ALICIA Abbott Unavailable Unavailable Bethany MARX Unavailable Philippe VARGAS MD Unavailable Unavailable PAO MARX [place] Unavailable Unavailable HUGO MARX Unavailable Unavailable MARILIA MARX Unavailable Unavailable HOMER MARX [place] Unavailable Unavailable CESILIA MARX Unavailable Unavailable Aislinn [...] Active Plavix TABS Refills: 0 M.A.Active Nystatin-Triamcinolone 571889-3.1 UNIT/GM-% External Cream APPLY SPARINGLY TO AFFECTED [...] Details Influenza #1 on: 25-Feb-2007 Lot #: [id number] Td on: 25-Feb-2007 Lot #: [id number] Influenza on: 31-Dec-2007 Lot #: [id number] Influenza on: 03-Dec-2009 Lot #: [id number] Influenza on: 19-Dec-2010 Lot #: [id number] Fluzone Quadrivalent 0.5 ML Intramuscular Suspension on: Dec-2015 Lot #: [id number] Fluzone Quadrivalent 0.5 ML Intramuscular Suspension on: Dec-2016 Lot #: [id number] Fluzone Quadrivalent 0.5 ML Intramuscular Suspension on: Lot #: [id number] Fluzone Quadrivalent 0.5 ML Intramuscular Suspension P refilled Syringe on: 20-Dec-2018 Lot #: [id number] Family History Name Dates Details Family history of Hypertension (V17.49) Comments: Family History Status: Active Name Dates Details Family history of rheumatoid arthritis (V17.7, Z82.61) Status: Active Name Dates Details Family history of hypertension (V17.49, Z82.49) Status: Active Social History Name Dates Details - Status: Name Dates Details Never smoker Never smoker Never smoker Never smoker Vital Signs Date Test Result Details 34-Ffn-529011:33 BP Systolic 122 mm[Hg] Status: Comment s: Location: LUE; Position: Sitting BP Diastolic 78 mm[Hg] Status: Comments: Lo cation: LUE; Position: Sitting Height 68 in Status: Weight 209 lb Status: Body Mass Index Calculated 31.78 kg/m2 Status: Body Surface Area Calculated 2.08 m2 Status: Results Date Description Value Details 8-Ieb-400247:40 US Pelvis with Pelvis Transvaginal 12170 Pelvis with Pelvis SEE NOTES Comments: PRO CEDURE INFORMATION:Exam: US Pelvis Complete, Transabdominal and US Pelvis, TransvaginalExam date and time: 04/29/2019 12:52 PMAge: 34 years oldClinical indication: Irregular menstruation, u nspecified; Transvaginal US Additional info: N92.6/irregular mensesTECHNIQUE:Imaging protocol: Real-time transabdominal and transvaginal pelvic ultrasound(complete) with image documentation. Transvaginal imaging was used for better evaluation of th e endometrium and adnexa.COMPARISON:PELVIS W PELVIS TRANSVAGINAL US 07/12/2016 4:20 PMFINDINGS:The retroverted uterus measures 8.3 x 4.5 x 7.1 cm in size. There are nabothiancysts. There is normal parenc hymal echotexture.The endometrial stripe measures 11 mm in thickness.Right ovary measures 3.5 x 2.2 x 2.5 cm.Status post left oophorectomy.There is normal bilateral ovarian blood flow on doppler evaluat ion. There is a right ovarian cyst measuring 2.2 x 1.8 x 1.8 cm.There is no free fluid in the cul-de-sac.If there is further concern, followup pelvic sonography or MRI of the pelvismay b e performed.IMPR ESSION:Heterogeneous uterine parenchyma.Right ovarian cyst.Manolo Mckeon MD On 04/29/2019 15:51:15; [id number]--Vgbx by: Manolo Mckeon MDDictated Date/time: 04/29/19 15:51E lectronically Si gned by: Manolo Mckeon MD 04/29/2014:51FINAL REPORT Plan of Care Name Dates Details Planned Observations Planned Goals not documented Planned Encounters Appointment; FRED VERA M.D. On: 02-May-2019 15 :00 Appointment; STEPHANY SR M.D. On: 20-May-2019 8 :40 Appointment; JOSELO VARGAS M.D. On: 27-May-2019 14:30 Appointment; ABIEL HALL NP On: 03-Jun-2019 11 :00 Appointment; BARBARA SIDHU M.D. On: 10-Jun-2019 10: 45 Instructions Name Dates Details Instructions not documented Encounters Appointment; JOESLO VARGAS M.D. On: 26-Jun-2017 13:30 Encounter Diagnosis: [...] 0 Encounter Diagnosis: Problem not documented Appointment; PETTYTER, NON-INVASIVE On: 26-Nov-2018 13:30 Encounter Diagnosis: Problem not documented Appointment; JOSELO VARGAS M.D. On: 27-Nov-2018 10:30 Encounter Diagnosis: Problem not documented Appointment; NATALIE CEDENO M.D. On: 27-Nov-2018 13:45 Encounter Diagnosis: Problem not documented Appointment; [facility], [facility] On: 20-Dec-2018 11:30 Encounter Diagnosis: Problem [...]
--- OUTSIDE RECORDS SUMMARY | 2019-07-21 22:26 | XMS REPORT | Summary of Care ---
:1985 Author Organization [facility] Address [address] [place] [address] Care Team Providers Name Role Phone MARILIA [...] Active Plavix TABS Refills: 0 Active Nystatin-Triamcinolone 461890-6.1 UNIT/GM-% External Cream APPLY SPARINGLY TO AFFECTED [...] Details Influenza #1 on: 25-Feb-2007 Lot #: [id number] Td on: 25-Feb-2007 Lot #: [id number] Influenza on: 31-Dec-2007 Lot #: [id number] Influenza on: 03-Dec-2009 Lot #: [id number] Influenza on: 19-Dec-2010 Lot #: [id number] Fluzone Quadrivalent 0.5 ML Intramuscular Suspension on: Dec-2015 Lot #: [id number] Fluzone Quadrivalent 0.5 ML Intramuscular Suspension on: Dec-2016 Lot #: [id number] Fluzone Quadrivalent 0.5 ML Intramuscular Suspension on: Lot #: [id number] Fluzone Quadrivalent 0.5 ML Intramuscular Suspension P refilled Syringe on: 20-Dec-2018 Lot #: [id number] Family History Name Dates Details Family history of Hypertension (V17.49) Comments: Family History Status: Active Name Dates Details Family history of rheumatoid arthritis (V17.7, Z82.61) Status: Active Name Dates Details Family history of hypertension (V17.49, Z82.49) Status: Active Social History Name Dates Details - Status: Name Dates Details Never smoker Never smoker Never smoker Never smoker Vital Signs Date Test Result Details 02-Yky-226494:33 BP Systolic 122 mm[Hg] Status: Comment s: [...] Diagnosis: Problem not documented Appointment; [facility], [facility] On: 20-Dec-2018 11:30 Encounter Diagnosis: [...]
--- OUTSIDE RECORDS SUMMARY | 2019-07-21 22:27 | XMS REPORT | Summary of Care ---
:1985 Author Organization [facility] Address [address] [place] [address] Care Team Providers Name Role Phone MARILIA Abbott Unavailable Unavailable NAHUM Abbott Unavailable Unavailable ALICIA Abbott Unavailable Philippe Henderson MD Unavailable Philippe VARGAS MD Unavailable Philippe CEDENO MD [place] Unavailable Unavailable HUGO MARX Unavailable Unavailable MARILIA MARX Unavailable Unavailable HOMER MARX [place] Unavailable Unavailable CESILIA MARX Unavailable Unavailable Aislinn Abbott Unavailable Unavailable BETHANY Abbott Unavailable Unavailable NAHUM MARX [place] Unavailable Unavailable Unavailable Unavailable Unavailable Functional Status [...] Heavy menses (626.2, N92.0) Status: Acti ve Irregular menstruation (626.4, N92.6) St atus: Active Medications Name Dates Details Clopidogrel Bisulfate [...] Active Plavix TABS Refills: 0 Active Nystatin-Triamcinolone 463106-9.1 UNIT/GM-% External Cream APPLY SPARINGLY TO AFFECTED [...] Details Influenza #1 on: 25-Feb-2007 Lot #: [id number] Td on: 25-Feb-2007 Lot #: [id number] Influenza on: 31-Dec-2007 Lot #: [id number] Influenza on: 03-Dec-2009 Lot #: [id number] Influenza on: 19-Dec-2010 Lot #: [id number] Fluzone Quadrivalent 0.5 ML Intramuscular Suspension on: Dec-2015 Lot #: [id number] Fluzone Quadrivalent 0.5 ML Intramuscular Suspension on: Dec-2016 Lot #: [id number] Fluzone Quadrivalent 0.5 ML Intramuscular Suspension on: Lot #: [id number] Fluzone Quadrivalent 0.5 ML Intramuscular Suspension P refilled Syringe on: 20-Dec-2018 Lot #: [id number] Family History Name Dates Details Family history of Hypertension (V17.49) Comments: Family History Status: Active Name Dates Details Family history of rheumatoid arthritis (V17.7, Z82.61) Status: Active Name Dates Details Family history of hypertension (V17.49, Z82.49) Status: Active Social History Name Dates Details - Status: Name Dates Details Never smoker Never smoker Never smoker Never smoker Vital Signs Date Test Result Details :13 BP Systolic 112 mm[Hg] Status: Comments : Location: RUE; Position: Sitting BP Diastolic 76 mm[Hg] Status: Comments: Lo cation: RUE; Position: Sitting Physical Findings 0 Status: Comments: Al cohol Screen - How many times in the past yr have you had 5 (for M) or 4 (for F) or 4 (for all > 65yrs) or more drinks in a day? Height 68 in Status: Weight 190 lb Status: Body Mass Index Calculated 28.89 kg/m2 Status: Body Surface Area Calculated 2 m2 Status: Heart Rate 79 /min Status: :33 BP Systolic 122 mm[Hg] Status: Comment s: Location: LUE; Position: Sitting BP Diastolic 78 mm[Hg] Status: Comments: Lo cation: LUE; Position: Sitting Height 68 in Status: Weight 209 lb Status: Body Mass Index Calculated 31.78 kg/m2 Status: Body Surface Area Calculated 2.08 m2 Status: Results Date Description Value Details :40 US Pelvis with Pelvis Transvaginal 06388 Pelvis with Pelvis SEE NOTES Comments: PRO [...] ovarian cyst.Manolo Mckeon MD On 04/29/2019 15:51:15; [id number]--[id number] by: Manolo Mckeon MDDictated Date/time: 04/29/19 15:51E lectronically Si gned by: Manolo Mckeon MD 04/29/2014:51FINAL REPORT Plan of Care Name Dates Details Planned Observations Planned Goals not documented Planned Encounters Appointment; STEPHANY SR M.D. On: 20-May-2019 8 [...] 15-Apr-2019 15:40 Encounter Diagnosis: Problem not documented Appointment; FRED VERA M.D. On: 02-May-2019 15 :00 Encounter Diagnosis: Problem not documented
--- OUTSIDE RECORDS SUMMARY | 2019-07-21 22:27 | XMS REPORT | Summary of Care ---
:1985 Author Name Denis Estrella Address Unavailable Unavailable , Care Team Providers Name Role Phone MARILIA Abbott Unavailable Unavailable NAHUM Abbott Unavailable Unavailable ALICIA Abbott Unavailable Unavailable CHUY Abbott Unavailable Unavailable Bethany MARX Unavailable Unavailable ALICIA [...] Active Plavix TABS Refills: 0 Active Nystatin-Triamcinolone 681123-4.1 UNIT/GM-% External Cream APPLY SPARINGLY TO AFFECTED [...] Details Influenza #1 on: 25-Feb-2007 Lot #: [id number] Td on: 25-Feb-2007 Lot #: [id number] Influenza on: 31-Dec-2007 Lot #: [id number] Influenza on: 03-Dec-2009 Lot #: [id number] Influenza on: 19-Dec-2010 Lot #: [id number] Fluzone Quadrivalent 0.5 ML Intramuscular Suspension on: Dec-2015 Lot #: [id number] Fluzone Quadrivalent 0.5 ML Intramuscular Suspension on: Dec-2016 Lot #: [id number] Fluzone Quadrivalent 0.5 ML Intramuscular Suspension on: Lot #: [id number] Fluzone Quadrivalent 0.5 ML Intramuscular Suspension P refilled Syringe on: 20-Dec-2018 Lot #: [id number] Family History Name Dates Details Family history [...] Details :40 US Pelvis with Pelvis Transvaginal 52266 Pelvis with Pelvis SEE NOTES Comments: PRO [...] ovarian cyst.Manolo Mckeon MD On 04/29/2019 15:51:15; [id number]--Unnb by: Manolo Mckeon MDDictated Date/time: 04/29/19 15:51E [...] 13:45 Encounter Diagnosis: Problem not documented Appointment; TRINY GARCIA, [facility] On: 20-Dec-2018 11:30 Encounter Diagnosis: Problem [...]
--- OUTSIDE RECORDS SUMMARY | 2019-07-21 22:28 | XMS REPORT | Summary of Care ---
:1985 Author Name CHUY Abbott Address Unavailable Unavailable , Care Team Providers Name Role Phone MARILIA Abbott Unavailable Unavailable NAHUM Abbott Unavailable Unavailable ALICIA Abbott Unavailable Unavailable CHUY Abbott Unavailable Unavailable Bethany MARX Unavailable Philippe [...] Irregular menstruation (626.4, N92.6) St atus: Active Ovarian Cyst Status: Active Medications Name Dates Details Clopidogrel [...] AT BEDTIME NEEDED Quantity: 60 Refills: 5 ALICIA Abbott JACOBVic Start : 02-Feb-2015 Active Plavix TABS Refills: 0 Active Nystatin-Triamcinolone 064514-6.1 UNIT/GM-% External Cream APPLY SPARINGLY TO AFFECTED AREA(S) TWICE DAILY Quantity: 1 Refills: 0 MARILIA Abbott MARINO Start : 31-Dec-2018 Active Allergies and Adverse [...] Details Influenza #1 on: 25-Feb-2007 Lot #: [id number] Td on: 25-Feb-2007 Lot #: [id number] Influenza on: 31-Dec-2007 Lot #: [id number] Influenza on: 03-Dec-2009 Lot #: [id number] Influenza on: 19-Dec-2010 Lot #: [id number] Fluzone Quadrivalent 0.5 ML Intramuscular Suspension on: Dec-2015 Lot #: [id number] Fluzone Quadrivalent 0.5 ML Intramuscular Suspension on: Dec-2016 Lot #: [id number] Fluzone Quadrivalent 0.5 ML Intramuscular Suspension on: Lot #: [id number] Fluzone Quadrivalent 0.5 ML Intramuscular Suspension P refilled Syringe on: 20-Dec-2018 Lot #: [id number] Family History Name Dates Details Family history [...] Details :40 US Pelvis with Pelvis Transvaginal 23187 Pelvis with Pelvis SEE NOTES Comments: PRO [...] ovarian cyst.Manolo Mckeon MD On 04/29/2019 15:51:15; [id number]--Eatj by: Manolo Mckeon MDDictated Date/time: 04/29/19 15:51E [...] Diagnosis: Problem not documented Appointment; [facility], [facility] On: 20-Dec-2018 11:30 Encounter Diagnosis: Problem [...]
--- OUTSIDE RECORDS SUMMARY | 2019-07-21 22:28 | XMS REPORT | Summary of Care ---
:1985 Author Name GUME Abbott Address Unavailable Unavailable , Care Team [...] Active Plavix TABS Refills: 0 Active Nystatin-Triamcinolone 685515-2.1 UNIT/GM-% External Cream APPLY SPARINGLY TO AFFECTED [...] A08.4) Status: Resolved Procedures Procedure Dates Details . [facility] - PAP Date: 02-May-2019 [facility] CULTURE, URINE, ROUTINE Date: 02-May-2019 [[facility]] URINALYSIS, COMPLETE Date: 02-May-2019 History of Appendectomy Completed History of Cholecystectomy Completed History of Oophorectomy Completed Immunization Name Dates Details Influenza #1 on: 25-Feb-2007 Lot #: [id number] Td on: 25-Feb-2007 Lot #: [id number] Influenza on: 31-Dec-2007 Lot #: [id number] Influenza on: 03-Dec-2009 Lot #: [id number] Influenza on: 19-Dec-2010 Lot #: [id number] Fluzone Quadrivalent 0.5 ML Intramuscular Suspension on: Dec-2015 Lot #: [id number] Fluzone Quadrivalent 0.5 ML Intramuscular Suspension on: Dec-2016 Lot #: [id number] Fluzone Quadrivalent 0.5 ML Intramuscular Suspension on: Lot #: [id number] Fluzone Quadrivalent 0.5 ML Intramuscular Suspension P refilled Syringe on: 20-Dec-2018 Lot #: [id number] Family History Name Dates Details Family history of Hypertension (V17.49) Comments: Family History Status: Active Name Dates Details Family history of rheumatoid arthritis (V17.7, Z82.61) Status: Active Name Dates Details Family history of hypertension (V17.49, Z82.49) Status: Active Social History Name Dates Details - Status: Name Dates Details Never smoker Never smoker Never smoker Never smoker Vital Signs Date Test Result Details 9-Uvd-347538:13 BP Systolic 112 mm[Hg] Status: Comments : [...] Details :40 US Pelvis with Pelvis Transvaginal 24719 Pelvis with Pelvis SEE NOTES Comments: PRO [...] ovarian cyst.Manolo Mckeon MD On 04/29/2019 15:51:15; [id number]--Flic by: Manolo Mckeon MDDictated Date/time: 04/29/19 15:51E lectronically Si gned by: Manolo Mckeon MD 04/29/2014:51FINAL REPORT Plan of Care Name Dates Details Planned Observations Planned Goals not documented Planned Encounters Appointment; STEPHANY SR M.D. On: 20-May-2019 8 :40 Appointment; JOSELO VARGAS M.D. On: 27-May-2019 14:30 Appointment; ABIEL HALL NP On: 03-Jun-2019 11 :00 Appointment; BARBARA SIDHU M.D. On: 10-Jun-2019 10: 45 Interventions Provided Labs/Procedures/Imaging. [facility] - PAP; To Be Done: 02 May 2019[QL] CULTURE, URINE, ROUTINE; To Be Done: 02 May 2019[QL] URINALYSIS, COMPLETE; To Be Done: 02 May 2019Discussion/[id number] F here for heavy menses and dysmenorrhea, discussed possible endometriosis- TVUS ordered- discussed treatment options-- has erythromelalgia for which she takes Plavix due to increased riskof VTE. Would not recommend OCPs. Recommend IUD or Orilissa. Could also try Nexplanon or Depo again,though she did not like side effects with Depo. May be a candidate for endometrial ablation or hysterectomy if she fails these treatments. Patient's mother states they will consider their options and call us with decision- records requested from ER-- reassured ovarian cyst is likely functional and will resolve on its own at that small sizeRecurrent UTIs- recommend f/u with urologist. Instructions Name Dates Details Instructions not documented [...] Diagnosis: Problem not documented Appointment; [facility], [facility] On: 20-Dec-2018 11:30 Encounter Diagnosis: [...]
--- OUTSIDE RECORDS SUMMARY | 2019-07-21 22:29 | XMS REPORT | Summary of Care ---
[...] St atus: Active Ovarian Cyst Status: Active Irregular Length Of Menstrual Periods St atus: Active Medications Name Dates Details [...] NEEDED Quantity: 60 Refills: 5 ALICIA Abbott JOSELO Start : 02-Feb-2015 Active Plavix TABS Refills: 0 Active Nystatin-Triamcinolone 806961-1.1 UNIT/GM-% External Cream APPLY SPARINGLY TO AFFECTED [...] Details . [facility] - PAP Date: 02-May-2019 [[facility]] CULTURE, URINE, ROUTINE Date: 02-May-2019 [[facility]] URINALYSIS, COMPLETE Date: 02-May-2019 History of Appendectomy Completed History of Cholecystectomy Completed Immunization Name Dates Details Influenza #1 on: 25-Feb-2007 Lot #: [id number] Td on: 25-Feb-2007 Lot #: [id number] Influenza on: 31-Dec-2007 Lot #: [id number] Influenza on: 03-Dec-2009 Lot #: [id number] Influenza on: 19-Dec-2010 Lot #: [id number] Fluzone Quadrivalent 0.5 ML Intramuscular Suspension on: Dec-2015 Lot #: [id number] Fluzone Quadrivalent 0.5 ML Intramuscular Suspension on: Dec-2016 Lot #: [id number] Fluzone Quadrivalent 0.5 ML Intramuscular Suspension on: Lot #: [id number] Fluzone Quadrivalent 0.5 ML Intramuscular Suspension P refilled Syringe on: 20-Dec-2018 Lot #: [id number] Family History Name Dates Details Family history [...] m2 Status: Heart Rate 79 /min Status: 91-Nrt-060992:33 BP Systolic 122 mm[Hg] Status: Comment s: Location: LUE; Position: Sitting BP Diastolic 78 mm[Hg] Status: Comments: Lo cation: LUE; Position: Sitting Height 68 in Status: Weight 209 lb Status: Body Mass Index Calculated 31.78 kg/m2 Status: Body Surface Area Calculated 2.08 m2 Status: Results Date Description Value Details :40 US Pelvis with Pelvis Transvaginal 73600 Pelvis with Pelvis SEE NOTES Comments: PRO [...] ovarian cyst.Manolo Mckeon MD On 04/29/2019 15:51:15; [id number]--[id number] by: Manolo Mckeon MDDictated Date/time: 04/29/19 15:51E [...] URINALYSIS, COMPLETE; To Be Done: 02 May 2019Discussion/[id number] G0 w/ h/o cerebral palsy (wheelchair bound), erythromyalgia (on Plavix), Intellectual disability, h/o Lap Appendectomy, Lap nika and Ex lap LSO (2/2 hemorrhagic cyst) who presents to clinic for eval of AUB1. AUB-last Hgb 10..3-TVUS w/ retroverted uterus 8m2gp-XUW 29-Previously w/ medical management-IUD controlled syx-however declines a this time, Desires definitive surgical management-Ultimate plan for Robotic TLH vs TATI-route dependent on potential adhesive disease. Recommend initial scope to determine route2. 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 h/o RBBB-Will need cardiology clearance prior to surgery4. Concern for UTI-straight cath collected today5. HCM-Pap collected today-no h/o abnormal-Wet mount/GC/CT/Affirm collected todayDispo: RTC to preop clinic after pt cleared. Will schedule surgery at that timePt seen and examined w/ [facility] Aretha [facility]. Instructions Name Dates Details Instructions not documented [...] 13:45 Encounter Diagnosis: Problem not documented Appointment; [facility], [facility] On: 20-Dec-2018 11:30 Encounter Diagnosis: [...]
--- OUTSIDE RECORDS SUMMARY | 2019-07-21 22:29 | XMS REPORT | Summary of Care ---
[...] BEDTIME NEEDED Quantity: 60 Refills: 5 ALICIA AbbottJOSELO Start : 02-Feb-2015 Active Plavix TABS Refills: 0 Active Nystatin-Triamcinolone 283304-0.1 UNIT/GM-% External Cream APPLY SPARINGLY TO AFFECTED [...] Details . [facility]May-2019 [facility] CULTURE, URINE, ROUTINE Date: 02-May-2019 [facility] URINALYSIS, COMPLETE Date: 02-May-2019 History of Appendectomy Completed History of Cholecystectomy Completed History of Oophorectomy Completed Immunization Name Dates Details Influenza #1 on: 25-Feb-2007 Lot #: [id number] Td on: 25-Feb-2007 Lot #: [id number] Influenza on: 31-Dec-2007 Lot #: [id number] Influenza on: 03-Dec-2009 Lot #: [id number] Influenza on: 19-Dec-2010 Lot #: [id number] Fluzone Quadrivalent 0.5 ML Intramuscular Suspension on: Dec-2015 Lot #: [id number] Fluzone Quadrivalent 0.5 ML Intramuscular Suspension on: Dec-2016 Lot #: [id number] Fluzone Quadrivalent 0.5 ML Intramuscular Suspension on: Lot #: [id number] Fluzone Quadrivalent 0.5 ML Intramuscular Suspension P refilled Syringe on: 20-Dec-2018 Lot #: [id number] Family History Name Dates Details Family history of Hypertension (V17.49) Comments: Family History Status: Active Name Dates Details Family history of rheumatoid arthritis (V17.7, Z82.61) Status: Active Name Dates Details Family history of hypertension (V17.49, Z82.49) Status: Active Social History Name Dates Details - Status: Name Dates Details Never smoker Never smoker Never smoker Never smoker Vital Signs Date Test Result Details 8-Tvv-184299:13 BP Systolic 112 mm[Hg] Status: Comments : [...] m2 Status: Heart Rate 79 /min Status: 36-Nhs-378213:33 BP Systolic 122 mm[Hg] Status: Comment s: Location: LUE; Position: Sitting BP Diastolic 78 mm[Hg] Status: Comments: Lo cation: LUE; Position: Sitting Height 68 in Status: Weight 209 lb Status: Body Mass Index Calculated 31.78 kg/m2 Status: Body Surface Area Calculated 2.08 m2 Status: Results Date Description Value Details :40 US Pelvis with Pelvis Transvaginal 22230 Pelvis with Pelvis SEE NOTES Comments: PRO [...] ovarian cyst.Manolo Mckeon MD On 04/29/2019 15:51:15; [id number] by: Manolo Mckeon MDDictated Date/time: 04/29/19 15:51E [...] URINALYSIS, COMPLETE; To Be Done: 02 May 2019Discussion/[id number] F here for heavy menses and dysmenorrhea, [...] Diagnosis: Problem not documented Appointment; [facility], [facility] On: 20-Dec-2018 11:30 Encounter Diagnosis: Problem not [...]
--- OUTSIDE RECORDS SUMMARY | 2019-07-21 22:30 | XMS REPORT | Summary of Care ---
:1985 Author Name NWOGWUGWILLIE Abbott Address Unavailable Unavailable , Care Team Providers Name Role Phone MARILIA Abbott Unavailable Unavailable NAHUM Abbott Unavailable Unavailable ALICIA Abbott Unavailable Unavailable Bethany MARX Unavailable Unavailable ALICIA MARX Unavailable Philippe CEDENO MD [place] Unavailable Unavailable HUGO MARX Unavailable Unavailable [...] Active Plavix TABS Refills: 0 M.A.Active Nystatin-Triamcinolone 751781-6.1 UNIT/GM-% External Cream APPLY SPARINGLY TO AFFECTED [...] [facility]] CULTURE, URINE, ROUTINE Date: 02-May-2019 History of Appendectomy Completed History of Cholecystectomy Completed Immunization Name Dates Details Influenza #1 on: 25-Feb-2007 Lot #: [id number] Td on: 25-Feb-2007 Lot #: [id number] Influenza on: 31-Dec-2007 Lot #: [id number] Influenza on: 03-Dec-2009 Lot #: [id number] Influenza on: 19-Dec-2010 Lot #: [id number] Fluzone Quadrivalent 0.5 ML Intramuscular Suspension on: Dec-2015 Lot #: [id number] Fluzone Quadrivalent 0.5 ML Intramuscular Suspension on: Dec-2016 Lot #: [id number] Fluzone Quadrivalent 0.5 ML Intramuscular Suspension on: Lot #: [id number] Fluzone Quadrivalent 0.5 ML Intramuscular Suspension P refilled Syringe on: 20-Dec-2018 Lot #: [id number] Family History Name Dates Details Family history [...] Details :38 US Pelvis with Pelvis Transvaginal 30852 Pelvis with Pelvis SEE NOTES Comments: PRO [...] ovarian cyst.Manolo Mckeon MD On 04/29/2019 15:51:15; [id number] by: Manolo Mckeon MDDictated Date/time: 04/29/19 15:51E lectronically Si gned by: Manolo Mckeon MD 04/29/2014:51FINAL REPORT [id number] [[facility]] URINALYSIS, COMPLETE UA Turbidity Clear Range: Clear UA Spec Grav 1.012 Range: <=1.030 UA pH 7.0 Range: 5.0-8.0 UA Protein Negative mg/dl Range: Negative UA Glucose Negative mg/dl Range: Negative UA Ketones Negative mg/dl Range: Negative UA Bili Negative Range: Negative UA Blood Negative Range: Negative UA Nitrite Negative Range: Negative UA Leuk Est Negative Range: Negative UA RBC 1 {/HPF} Range: 0-2 UA WBC <1 {/HPF} Range: 0-5 UA Bacteria Occasional {/HPF} Range: None S een UA Mucus Few {/LPF} Range: None Seen UA Sq Epi Occasional {/LPF} Range: Few UA Color Ltyellow UROBILINOGEN <=1.0 mg/dl Range: 0.1-1.0 Plan of Care Name Dates Details Planned [...] 0 Encounter Diagnosis: Problem not documented Appointment; ELVIN LINDSEY On: 26-Nov-2018 13:30 Encounter Diagnosis: Problem not documented Appointment; JOSELO VARGAS M.D. On: 27-Nov-2018 10:30 Encounter Diagnosis: Problem not documented Appointment; NATALIE CEDENO M.D. On: 27-Nov-2018 13:45 Encounter Diagnosis: Problem not documented Appointment; TRINY GARCIA, TCM On: 20-Dec-2018 11:30 Encounter Diagnosis: Problem [...]
--- OUTSIDE RECORDS SUMMARY | 2019-07-21 22:31 | XMS REPORT | Summary of Care ---
[...] Active Plavix TABS Refills: 0 M.A.Active Nystatin-Triamcinolone 498167-7.1 UNIT/GM-% External Cream APPLY SPARINGLY TO AFFECTED AREA(S) TWICE DAILY Quantity: 1 Refills: 0 MARILIA Abbott CECIRAS Start : 31-Dec-2018 Active Allergies and Adverse [...] Details . [facility] - PAP Date: 02-May-2019 History of Appendectomy Completed History of Cholecystectomy Completed Immunization Name Dates Details Influenza #1 on: 25-Feb-2007 Lot #: [id number] Td on: 25-Feb-2007 Lot #: [id number] Influenza on: 31-Dec-2007 Lot #: [id number] Influenza on: 03-Dec-2009 Lot #: [id number] Influenza on: 19-Dec-2010 Lot #: [id number] Fluzone Quadrivalent 0.5 ML Intramuscular Suspension on: Dec-2015 Lot #: [id number] Fluzone Quadrivalent 0.5 ML Intramuscular Suspension on: Dec-2016 Lot #: [id number] Fluzone Quadrivalent 0.5 ML Intramuscular Suspension on: Lot #: [id number] Fluzone Quadrivalent 0.5 ML Intramuscular Suspension P refilled Syringe on: 20-Dec-2018 Lot #: [id number] Family History Name Dates Details Family history [...] Details :38 US Pelvis with Pelvis Transvaginal 39536 Pelvis with Pelvis SEE NOTES Comments: PRO [...] ovarian cyst.Manolo Mckeon MD On 04/29/2019 15:51:15; [id number] by: Manolo Mckeon MDDictated Date/time: 04/29/19 15:51E lectronically Si gned by: Manolo Mckeon MD 04/29/2014:51FINAL REPORT [id number] [[facility]] URINALYSIS, COMPLETE UA Turbidity Clear Range: Clear [...] Color Ltyellow UROBILINOGEN <=1.0 mg/dl Range: 0.1-1.0 [id number] [QL] CULTURE, URINE, ROUTINE Comments: Source: Urine, Clean CatchBody Site: FINAL REPORT No Growth Plan of Care Name Dates Details Planned [...] 13:45 Encounter Diagnosis: Problem not documented Appointment; DARRIN HOGAN On: 20-Dec-2018 11:30 Encounter Diagnosis: Problem not [...]
--- OUTSIDE RECORDS SUMMARY | 2019-07-21 22:31 | XMS REPORT | Summary of Care ---
[...] Active Plavix TABS Refills: 0 Active Nystatin-Triamcinolone 580277-1.1 UNIT/GM-% External Cream APPLY SPARINGLY TO AFFECTED [...] Details Influenza #1 on: 25-Feb-2007 Lot #: [id number] Td on: 25-Feb-2007 Lot #: [id number] Influenza on: 31-Dec-2007 Lot #: [id number] Influenza on: 03-Dec-2009 Lot #: [id number] Influenza on: 19-Dec-2010 Lot #: [id number] Fluzone Quadrivalent 0.5 ML Intramuscular Suspension on: Dec-2015 Lot #: [id number] Fluzone Quadrivalent 0.5 ML Intramuscular Suspension on: Dec-2016 Lot #: [id number] Fluzone Quadrivalent 0.5 ML Intramuscular Suspension on: Lot #: [id number] Fluzone Quadrivalent 0.5 ML Intramuscular Suspension P refilled Syringe on: 20-Dec-2018 Lot #: [id number] Family History Name Dates Details Family history [...] Details :38 US Pelvis with Pelvis Transvaginal 83335 Pelvis with Pelvis SEE NOTES Comments: PRO [...] ovarian cyst.Manolo Mckeon MD On 04/29/2019 15:51:15; [id number] by: Manolo Mckeon MDDictated Date/time: 04/29/19 15:51E lectronically Si gned by: Manolo Mckeon MD 04/29/2014:51FINAL REPORT [id number] [QL] URINALYSIS, COMPLETE UA Turbidity Clear Range: [...] Color Ltyellow UROBILINOGEN <=1.0 mg/dl Range: 0.1-1.0 [id number] [[facility]] CULTURE, URINE, ROUTINE Comments: Source: Urine, Clean CatchBody Site: FINAL REPORT No Growth Plan of Care Name Dates Details Planned Observations Planned Goals not documented Planned Encounters Appointment; STEPHANY SR M.D. On: 20-May-2019 8 :40 Appointment; JOSELO VARGAS M.D. On: 27-May-2019 14:30 Appointment; ABIEL HALL NP On: 03-Jun-2019 11 :00 Appointment; BARBARA SIDHU M.D. On: 10-Jun-2019 10: 45 Interventions Provided Discussion/[id number] G0 w/ h/o cerebral palsy (wheelchair bound), erythromyalgia (on Plavix), Intellectual disability, h/o Lap Appendectomy, Lap nika and Ex lap LSO (2/2 hemorrhagic cyst) who presents to clinic for eval of AUB1. AUB-last Hgb 10..3-TVUS w/ retroverted uterus 8e4mh-SVV 29-Previously w/ medical management-IUD controlled syx-however declines a this time, Desires definitive surgical management-Ultimate plan for Robotic TLH vs TATI-route dependent on potential adhesive disease. Recommend initial scope to determine route2. 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 Aretha Vera, MDPGY3. Instructions Name Dates Details Instructions not documented [...] 12:00 Encounter Diagnosis: Problem not documented Appointment; JOSLEO VARGAS M.D. On: 21-Nov-2017 11:00 Encounter Diagnosis: [...] Encounter Diagnosis: Problem not documented Appointment; [facility], TCM On: 20-Dec-2018 11:30 Encounter Diagnosis: [...]
--- OUTSIDE RECORDS SUMMARY | 2019-07-21 22:32 | XMS REPORT | Summary of Care ---
:1985 Author Name Segars R.N. Address [facility] Unavailable , Care Team Providers Name Role Phone MARILIA Abbott Unavailable Unavailable NAHUM Abbott Unavailable Unavailable ALICIA Abbott Unavailable Unavailable Bethany MARX Unavailable Philippe VARGAS MD Unavailable Unavailable PAO MARX [place] Unavailable Unavailable HUGO MARX Unavailable Unavailable MARILIA MARX Unavailable Unavailable HOMER MARX [place] Unavailable Unavailable CESILIA MARX Unavailable Unavailable Aislinn Abbott Unavailable Unavailable BETHANY Abbott Unavailable Unavailable NHAUM MARX [place] Unavailable Unavailable Unavailable Unavailable Unavailable [...] Active Plavix TABS Refills: 0 M.A.Active Nystatin-Triamcinolone 427611-2.1 UNIT/GM-% External Cream APPLY SPARINGLY TO AFFECTED [...] Details Influenza #1 on: 25-Feb-2007 Lot #: [id number] Td on: 25-Feb-2007 Lot #: [id number] Influenza on: 31-Dec-2007 Lot #: [id number] Influenza on: 03-Dec-2009 Lot #: [id number] Influenza on: 19-Dec-2010 Lot #: [id number] Fluzone Quadrivalent 0.5 ML Intramuscular Suspension on: Dec-2015 Lot #: [id number] Fluzone Quadrivalent 0.5 ML Intramuscular Suspension on: Dec-2016 Lot #: [id number] Fluzone Quadrivalent 0.5 ML Intramuscular Suspension on: Lot #: [id number] Fluzone Quadrivalent 0.5 ML Intramuscular Suspension P refilled Syringe on: 20-Dec-2018 Lot #: [id number] Family History Name Dates Details Family history [...] Details :38 US Pelvis with Pelvis Transvaginal 05252 Pelvis with Pelvis SEE NOTES Comments: PRO [...] ovarian cyst.Manolo Mckeon MD On 04/29/2019 15:51:15; [id number] by: Manolo Mckeon MDDictated Date/time: 04/29/19 15:51E lectronically Si gned by: Manolo Mckeon MD 04/29/2014:51FINAL REPORT [id number] [QL] URINALYSIS, COMPLETE UA Turbidity Clear Range: [...] Color Ltyellow UROBILINOGEN <=1.0 mg/dl Range: 0.1-1.0 [id number] [QL] CULTURE, URINE, ROUTINE Comments: Source: Urine, [...] 0 Encounter Diagnosis: Problem not documented Appointment; HOLTER, NON-INVASIVE On: 26-Nov-2018 13:30 Encounter Diagnosis: Problem [...]
--- OUTSIDE RECORDS SUMMARY | 2019-07-21 22:33 | XMS REPORT | Summary of Care ---
[...] [place] Unavailable Unavailable CESILIA MARX Unavailable Unavailable LOY MARX Unavailable Unavailable Aislinn Abbott Unavailable Unavailable [...] Active Plavix TABS Refills: 0 M.A.Active Nystatin-Triamcinolone 789245-4.1 UNIT/GM-% External Cream APPLY SPARINGLY TO AFFECTED AREA(S) TWICE DAILY Quantity: 1 Refills: 0 MARILIA AbbottMARINO Start : 31-Dec-2018 Active Allergies and Adverse [...] Details Influenza #1 on: 25-Feb-2007 Lot #: [id number] Td on: 25-Feb-2007 Lot #: [id number] Influenza on: 31-Dec-2007 Lot #: [id number] Influenza on: 03-Dec-2009 Lot #: [id number] Influenza on: 19-Dec-2010 Lot #: [id number] Fluzone Quadrivalent 0.5 ML Intramuscular Suspension on: Dec-2015 Lot #: [id number] Fluzone Quadrivalent 0.5 ML Intramuscular Suspension on: Dec-2016 Lot #: [id number] Fluzone Quadrivalent 0.5 ML Intramuscular Suspension on: Lot #: [id number] Fluzone Quadrivalent 0.5 ML Intramuscular Suspension P refilled Syringe on: 20-Dec-2018 Lot #: [id number] Family History Name Dates Details Family history [...] Details :38 US Pelvis with Pelvis Transvaginal 28013 Pelvis with Pelvis SEE NOTES Comments: PRO [...] ovarian cyst.Manolo Mckeon MD On 04/29/2019 15:51:15; [id number] by: Manolo Mckeon MDDictated Date/time: 04/29/19 15:51E lectronically Si gned by: Manolo Mckeon MD 04/29/2014:51FINAL REPORT [id number] [[facility]] URINALYSIS, COMPLETE UA Turbidity Clear Range: [...] Color Ltyellow UROBILINOGEN <=1.0 mg/dl Range: 0.1-1.0 [id number] [[facility]] CULTURE, URINE, ROUTINE Comments: Source: Urine, Clean CatchBody Site: FINAL REPORT No Growth 02-May-20190:00 . [facility] - PAP Case Click ImageLink button for repor t. (Normal) Specimen 1 Click ImageLink button for repor t. (Normal) Plan of Care Name Dates Details Planned Observations Planned Goals not documented Planned Encounters Appointment; ABIEL HALL NP On: 13-May-2019 11 :00 Appointment; STEPHANY SR M.D. On: 20-May-2019 8 :40 Appointment; JOSELO VARGAS M.D. On: 27-May-2019 14:30 Appointment; BARBARA SIDHU M.D. On: 10-Jun-2019 10: 45 Appointment; ZAY GRANADO M.D. On: 24-Jul-2019 13 :00 Instructions Name Dates Details Instructions not [...]
--- OUTSIDE RECORDS SUMMARY | 2019-07-21 22:33 | XMS REPORT | Summary of Care ---
:1985 Author Organization [facility] Address [address] [place] [address] Care Team Providers Name Role Phone MARILIA Abbott Unavailable Unavailable NAHUM Abbott Unavailable Philippe VARGAS M.D. Unavailable Philippe Henderson MD Unavailable Philippe VARGAS MD Unavailable Philippe CEDENO MD [place] Unavailable Unavailable HUGO MARX Unavailable Unavailable MARILIA MARX Unavailable Unavailable HOMER MARX [place] Unavailable Unavailable CESILIA MARX Unavailable Unavailable LOY MARX Unavailable Unavailable Aislinn Abbott Unavailable Unavailable BETHANY Abbott Unavailable Unavailable NAHUM MARX [place] Unavailable Unavailable Unavailable Unavailable Unavailable Functional Status Name Dates Details Functional status health issues are not documented Status: Name Dates Details Cognitive status health issues are not documented Status: Problems Name Dates Details Esophageal reflux (530.81, K21.9) Status : Active Oligomenorrhea (626.1, N91.5) Status: Ac tive Hypertrophy of breast (611.1, N62) Statu s: Active Flu vaccine need (V04.81, Z23) Status: A ctive Right ankle swelling (719.07, M25.471) S tatus: Active Palpitations (785.1, R00.2) Status: Acti ve Urinary frequency (788.41, R35.0) Status : Active Recurrent UTI (599.0, N39.0) Status: Act mari Tachycardia (785.0, R00.0) Status: Activ e Yeast infection (112.9, B37.9) Status: A ctive Irregular menses (626.4, N92.6) Status: Active Heavy menses (626.2, N92.0) Status: Acti ve Mild intellectual disability (317, F70) Status: Active Schizoaffective disorder, depressive type (295.70, F25.1) Status: Active Gross hematuria (599.71, R31.0) Status: Active Hematuria (599.70, R31.9) Status: Active Depression (311, F32.9) Status: Active Psychosis (298.9, F29) Status: Active Paroxysmal supraventricular tachycardia (427.0, I47.1) Status: Active Hyperlipidemia (272.4, E78.5) Status: Ac tive Heart block (426.9, I45.9) Status: Activ e Essential (primary) hypertension (401.9, I10) Status: Active Erythromelalgia (443.82, I73.81) Status: Active Anxiety (300.00, F41.9) Status: Active Special Dr. Services Analysis Of Computerized Data Status: Active Allergic rhinitis (477.9, J30.9) Status: Active Cerebral palsy (343.9, G80.9) Status: Ac tive Raynauds phenomenon (443.0, I73.00) Stat us: Active Scoliosis (737.30, M41.9) Status: Active Arterial insufficiency (447.1, I77.1) St atus: Active Auditory hallucinations (780.1, R44.0) S tatus: Active Asthma (493.90, J45.909) Status: Active Other signs and symptoms in breast (611.79, N64.59) Status: Active Normal routine physical examination (V70.0, Z00.00) Status: Active Irregular Length Of Menstrual Periods St atus: Active Ovarian Cyst Status: Active Irregular menstruation (626.4, N92.6) St atus: Active Pruritus of vagina (698.1, N89.8) Status : Active Medications Name Dates Details Clopidogrel Bisulfate [...] Active Plavix TABS Refills: 0 Active Nystatin-Triamcinolone 431533-9.1 UNIT/GM-% External Cream APPLY SPARINGLY TO AFFECTED [...] Details Influenza #1 on: 25-Feb-2007 Lot #: [id number] Td on: 25-Feb-2007 Lot #: [id number] Influenza on: 31-Dec-2007 Lot #: [id number] Influenza on: 03-Dec-2009 Lot #: [id number] Influenza on: 19-Dec-2010 Lot #: [id number] Fluzone Quadrivalent 0.5 ML Intramuscular Suspension on: Dec-2015 Lot #: [id number] Fluzone Quadrivalent 0.5 ML Intramuscular Suspension on: Dec-2016 Lot #: [id number] Fluzone Quadrivalent 0.5 ML Intramuscular Suspension on: Lot #: [id number] Fluzone Quadrivalent 0.5 ML Intramuscular Suspension P refilled Syringe on: 20-Dec-2018 Lot #: [id number] Family History Name Dates Details Family history [...] Details :38 US Pelvis with Pelvis Transvaginal 96858 Pelvis with Pelvis SEE NOTES Comments: PRO [...] ovarian cyst.Manolo Mckeon MD On 04/29/2019 15:51:15; [id number] by: Manolo Mckeon MDDictated Date/time: 04/29/19 15:51E lectronically Si gned by: Manolo Mckeon MD 04/29/2014:51FINAL REPORT [id number] [[facility]] URINALYSIS, COMPLETE UA Turbidity Clear Range: Clear [...] Color Ltyellow UROBILINOGEN <=1.0 mg/dl Range: 0.1-1.0 4-[id number] [QL] CULTURE, URINE, ROUTINE Comments: Source: Urine, Clean CatchBody Site: FINAL REPORT No Growth 02-May-20190:00 . [facility] - PAP Case Click ImageLink button for repor t. (Normal) Specimen 1 Click ImageLink button for repor t. (Normal) Plan of Care Name Dates Details Planned Observations Planned Goals not documented Planned Encounters Appointment; SETPHANY SR M.D. On: 20-May-2019 8 :40 Appointment; [...] Encounter Diagnosis: Problem not documented Appointment; [facility] On: 20-Dec-2018 11:30 Encounter Diagnosis: Problem not [...] 15 :00 Encounter Diagnosis: Problem not documented Appointment; ANABEL ARIAS M.D. On: 09-May-2019 10:45 Encounter Diagnosis: Problem not documented Appointment; ABIEL HALL NP On: 13-May-2019 11 :00 Encounter Diagnosis: Problem not documented
--- OUTSIDE RECORDS SUMMARY | 2019-07-21 22:33 | XMS REPORT | Summary of Care ---
:1985 Author Organization [facility] Address [address] [place] [address] Care Team Providers Name Role Phone MARILIA Abbott Unavailable Unavailable NAHUM Abbott Unavailable Unavailable ALICIA Abbott Unavailable Philippe Henderson MD Unavailable Philippe VARGAS MD Unavailable Philippe CEDENO MD [place] Unavailable Unavailable HUGO MARX Unavailable Unavailable MARILIA MARX Unavailable Unavailable HOMER MARX [place] Unavailable Unavailable CESILIA MARX Unavailable Unavailable LOY MARX Unavailable Unavailable Aislinn Abbott Unavailable Unavailable BETHANY Abbott Unavailable Unavailable NAHUM MARX [place] Unavailable Unavailable Unavailable Unavailable Unavailable Functional Status [...] SIDHU M.D. Start : 21-Sep-2011 Active Nystatin-Triamcinolone 722454-4.1 UNIT/GM-% External Cream APPLY SPARINGLY TO AFFECTED [...] AT BEDTIME NEEDED Quantity: 60 Refills: 5 VARGAS M.D., JOSELO Start : 02-Feb-2015 Active Allergies and Adverse Reactions Name Dates [...] of Cholecystectomy Completed Immunization Name Dates Details Td on: 25-Feb-2007 Lot #: [id number] Influenza #1 on: 25-Feb-2007 Lot #: [id number] Influenza on: 31-Dec-2007 Lot #: [id number] Influenza on: 03-Dec-2009 Lot #: [id number] Influenza on: 19-Dec-2010 Lot #: [id number] Fluzone Quadrivalent 0.5 ML Intramuscular Suspension on: Dec-2015 Lot #: [id number] Fluzone Quadrivalent 0.5 ML Intramuscular Suspension on: Dec-2016 Lot #: [id number] Fluzone Quadrivalent 0.5 ML Intramuscular Suspension on: Lot #: [id number] Fluzone Quadrivalent 0.5 ML Intramuscular Suspension P refilled Syringe on: 20-Dec-2018 Lot #: [id number] Family History Name Dates Details Family history of Hypertension (V17.49) Comments: Family History Status: Active Name Dates Details Family history of rheumatoid arthritis (V17.7, Z82.61) Status: Active Name Dates Details Family history of hypertension (V17.49, Z82.49) Status: Active Social History Name Dates Details - Status: Name Dates Details Never smoked tobacco (finding) Never smoked tobacco (finding) Never smoked tobacco (finding) Never smoked tobacco (finding) Vital Signs Date Test Result Details [id number] Systolic blood pressure 112 mm[Hg] Status: Comments: Location: RUE; Position: Sitting Diastolic blood pressure 76 mm[Hg] Status: Comment s: Location: RUE; Position: Sitting Physical Findings 0 Status: Comments: Al cohol Screen - How many times in the past yr have you had 5 (for M) or 4 (for F) or 4 (for all > 65yrs) or more drinks in a day? Body height 68 in Status: Weight 190 lb Status: Body mass index (BMI) [Ratio] 28.89 kg/m2 Status: Body surface area Derived from 2 m2 Status: formula Heart Rate 79 /min Status: Results Date Description Value Details [id number] US Pelvis with Pelvis Transvaginal 26139 Pelvis with Pelvis SEE NOTES Comments: PRO [...] ovarian cyst.Manolo Mckeon MD On 04/29/2019 15:51:15; [id number] by: Manolo Mckeon MDDictated Date/time: 04/29/19 15:51E lectronically Si gned by: Manolo Mckeon MD 04/29/2014:51FINAL REPORT [id number] [[facility]] URINALYSIS, COMPLETE UA Turbidity Clear Range: Clear [...] Color Ltyellow UROBILINOGEN <=1.0 mg/dl Range: 0.1-1.0 [id number] [[facility]] CULTURE, URINE, ROUTINE Comments: Source: Urine, Clean CatchBody Site: FINAL REPORT No Growth 02-May-20190:00 . [facility] - PAP Case Click ImageLink button for repor t. (Normal) Specimen 1 Click ImageLink button for repor t. (Normal) Plan of Care Name Dates Details Planned Observations Planned Goals not documented Planned Encounters Appointment; JOSELO VARGAS M.D. On: 27-May-2019 14:30 Appointment; BARBARA SIDHU M.D. On: 10-Jun-2019 10: 45 Appointment; ABIEL HALL NP On: 08-Jul-2019 11 :00 Appointment; ZAY GRANADO M.D. On: 24-Jul-2019 13 [...] 13:45 Encounter Diagnosis: Problem not documented Appointment; [facility], [facility] On: 20-Dec-2018 11:30 Encounter Diagnosis: [...]
--- OUTSIDE RECORDS SUMMARY | 2019-07-21 22:34 | XMS REPORT | Summary of Care ---
:1985 Author Organization [facility] Address [address] [place] [address] Care Team Providers Name Role Phone MARILIA Abbott Unavailable Unavailable NAHUM Abbott Unavailable Unavailable ALICIA Abbott Unavailable Philippe Henderson MD Unavailable Philippe VARGAS MD Unavailable Philippe CEDENO MD [place] Unavailable Unavailable HUGO MARX Unavailable Unavailable MARILIA MARX Unavailable Unavailable HOMER MARX [place] Unavailable Unavailable CESILIA MARX Unavailable Unavailable LOY MARX Unavailable Unavailable Aislinn Abbott Unavailable Unavailable BETHANY Abbott Unavailable Unavailable NAHUM MARX [place] Unavailable Unavailable Unavailable Unavailable Unavailable Functional Status [...] Services Analysis Of Computerized Data Status: Active Hematuria (599.70, R31.9) Status: Active Gross hematuria (599.71, R31.0) Status: Active Right ankle swelling (719.07, M25.471) S tatus: Active Palpitations (785.1, R00.2) Status: Acti ve Schizoaffective disorder, depressive type (295.70, F25.1) Status: Active Mild intellectual disability (317, F70) Status: Active Pruritus of vagina (698.1, N89.8) Status : Active Irregular menses (626.4, N92.6) Status: Active Heavy menses (626.2, N92.0) Status: Acti ve Irregular menstruation (626.4, N92.6) St atus: Active Ovarian Cyst Status: Active Tachycardia (785.0, R00.0) Status: Activ e Recurrent UTI (599.0, N39.0) Status: Act mari Urinary frequency (788.41, R35.0) Status : Active Depression (311, F32.9) Status: Active Psychosis (298.9, F29) Status: Active Paroxysmal supraventricular tachycardia (427.0, I47.1) Status: Active Hyperlipidemia (272.4, E78.5) Status: Ac tive Heart block (426.9, I45.9) Status: Activ e Essential (primary) hypertension (401.9, I10) Status: Active Erythromelalgia (443.82, I73.81) Status: Active Anxiety (300.00, F41.9) Status: Active Allergic rhinitis (477.9, J30.9) Status: Active Scoliosis (737.30, M41.9) Status: Active Auditory hallucinations (780.1, R44.0) S tatus: Active Irregular Length Of Menstrual Periods St atus: Active Yeast infection (112.9, B37.9) Status: A ctive Medications Name Dates Details Clopidogrel Bisulfate 75 [...] Active Plavix TABS Refills: 0 Active Nystatin-Triamcinolone 666875-3.1 UNIT/GM-% External Cream APPLY SPARINGLY TO AFFECTED [...] Details Influenza #1 on: 25-Feb-2007 Lot #: [id number] Td on: 25-Feb-2007 Lot #: [id number] Influenza on: 31-Dec-2007 Lot #: [id number] Influenza on: 03-Dec-2009 Lot #: [id number] Influenza on: 19-Dec-2010 Lot #: [id number] Fluzone Quadrivalent 0.5 ML Intramuscular Suspension on: Dec-2015 Lot #: [id number] Fluzone Quadrivalent 0.5 ML Intramuscular Suspension on: Dec-2016 Lot #: [id number] Fluzone Quadrivalent 0.5 ML Intramuscular Suspension on: Lot #: [id number] Fluzone Quadrivalent 0.5 ML Intramuscular Suspension P refilled Syringe on: 20-Dec-2018 Lot #: [id number] Family History Name Dates Details Family history [...] (finding) Vital Signs Date Test Result Details 5-[id number]:13 Systolic blood pressure 112 mm[Hg] Status: Comments: [...] /min Status: Results Date Description Value Details 9-[id number]:40 US Pelvis with Pelvis Transvaginal 73918 Pelvis with Pelvis SEE NOTES Comments: PRO [...] ovarian cyst.Manolo Mckeon MD On 04/29/2019 15:51:15; [id number] by: Manolo Mckeon MDDictated Date/time: 04/29/19 15:51E lectronically Si gned by: Manolo Mckeon MD 04/29/2014:51FINAL REPORT [id number] [[facility]] URINALYSIS, COMPLETE UA Turbidity Clear [...] Color Ltyellow UROBILINOGEN <=1.0 mg/dl Range: 0.1-1.0 2-[id number]:20 [[facility]] CULTURE, URINE, ROUTINE Comments: Source: [...] 13:45 Encounter Diagnosis: Problem not documented Appointment; [facility], [facility] On: 20-Dec-2018 11:30 Encounter Diagnosis: Problem [...]
--- OUTSIDE RECORDS SUMMARY | 2019-07-21 22:35 | XMS REPORT | Summary of Care ---
:1985 Author Organization [facility] Address [address] [place] [address] Care Team Providers Name Role Phone MARILIA Abbott Unavailable Unavailable NAHUM Abbott Unavailable Unavailable ALICIA Abbott Unavailable Philippe Henderson MD Unavailable Philippe VARGAS MD Unavailable Philippe CEDENO MD [place] Unavailable Unavailable HUGO MARX Unavailable Unavailable MARILIA MARX Unavailable Unavailable HOMER MARX [place] Unavailable Unavailable CESILIA AMRX Unavailable Unavailable LOY MARX Unavailable Unavailable Aislinn Abbott Unavailable Unavailable BETHANY Abbott Unavailable Unavailable NAHUM MARX [place] Unavailable Unavailable Unavailable Unavailable Unavailable Functional Status [...] Active Plavix TABS Refills: 0 Active Nystatin-Triamcinolone 258247-4.1 UNIT/GM-% External Cream APPLY SPARINGLY TO AFFECTED [...] Details Influenza #1 on: 25-Feb-2007 Lot #: [id number] Td on: 25-Feb-2007 Lot #: [id number] Influenza on: 31-Dec-2007 Lot #: [id number] Influenza on: 03-Dec-2009 Lot #: [id number] Influenza on: 19-Dec-2010 Lot #: [id number] Fluzone Quadrivalent 0.5 ML Intramuscular Suspension on: Dec-2015 Lot #: [id number] Fluzone Quadrivalent 0.5 ML Intramuscular Suspension on: Dec-2016 Lot #: [id number] Fluzone Quadrivalent 0.5 ML Intramuscular Suspension on: Lot #: [id number] Fluzone Quadrivalent 0.5 ML Intramuscular Suspension P refilled Syringe on: 20-Dec-2018 Lot #: [id number] Family History Name Dates Details Family history [...] (finding) Vital Signs Date Test Result Details 2-[id number]:13 Systolic blood pressure 112 mm[Hg] Status: Comments: [...] /min Status: Results Date Description Value Details [id number]-[id number]:40 US Pelvis with Pelvis Transvaginal 87748 Pelvis with Pelvis SEE NOTES Comments: PRO [...] ovarian cyst.Manolo Mckeon MD On 04/29/2019 15:51:15; [id number] by: Manolo Mckeon MDDictated Date/time: 04/29/19 15:51E lectronically Si gned by: Manolo Mckeon MD 04/29/2014:51FINAL REPORT [id number] [[facility]] URINALYSIS, COMPLETE UA Turbidity Clear Range: [...] Color Ltyellow UROBILINOGEN <=1.0 mg/dl Range: 0.1-1.0 2-[id number] [[facility]] CULTURE, URINE, ROUTINE Comments: Source: Urine, Clean CatchBody Site: FINAL REPORT No Growth 02-May-20190:00 . [facility] - PAP Case Click ImageLink button for repor t. (Normal) Specimen 1 Click ImageLink button for repor t. (Normal) Plan of Care Name Dates Details Planned Observations Planned Goals not documented Planned Encounters Appointment; BARBARA SIDHU M.D. On: 10-Jun-2019 10: 45 Appointment; JOSELO VARGAS M.D. On: 17-Jun-2019 12:00 Appointment; ABIEL HALL NP On: 08-Jul-2019 11 [...] 13:00 Encounter Diagnosis: Problem not documented Appointment; OJRDI WONG M.D. On: 09-Sep-2018 9:2 0 Encounter Diagnosis: Problem not documented Appointment; BARBARA SIDHU M.D. On: 26-Nov-2018 10:3 0 Encounter Diagnosis: Problem not documented Appointment; ELVIN LINDSEY On: 26-Nov-2018 13:30 Encounter Diagnosis: Problem not documented Appointment; JOSELO VARGAS M.D. On: 27-Nov-2018 10:30 Encounter Diagnosis: Problem not documented Appointment; NATALIE CEDENO M.D. On: 27-Nov-2018 13:45 Encounter Diagnosis: Problem not documented Appointment; [facility], [facility] On: 20-Dec-2018 11:30 Encounter Diagnosis: Problem [...]
--- OUTSIDE RECORDS SUMMARY | 2019-07-21 22:35 | XMS REPORT | Summary of Care ---
:1985 Author Name IKWUAGWILLIE Abbott Address Unavailable Unavailable , Care Team [...] Active Plavix TABS Refills: 0 M.A.Active Nystatin-Triamcinolone 505480-3.1 UNIT/GM-% External Cream APPLY SPARINGLY TO AFFECTED [...] Details Influenza #1 on: 25-Feb-2007 Lot #: [id number] Td on: 25-Feb-2007 Lot #: [id number] Influenza on: 31-Dec-2007 Lot #: [id number] Influenza on: 03-Dec-2009 Lot #: [id number] Influenza on: 19-Dec-2010 Lot #: [id number] Fluzone Quadrivalent 0.5 ML Intramuscular Suspension on: Dec-2015 Lot #: [id number] Fluzone Quadrivalent 0.5 ML Intramuscular Suspension on: Dec-2016 Lot #: [id number] Fluzone Quadrivalent 0.5 ML Intramuscular Suspension on: Lot #: [id number] Fluzone Quadrivalent 0.5 ML Intramuscular Suspension P refilled Syringe on: 20-Dec-2018 Lot #: [id number] Family History Name Dates Details Family history [...] (finding) Vital Signs Date Test Result Details 2-[id number]:13 Systolic blood pressure 112 mm[Hg] Status: Comments: Location: RUE; Position: Sitting Diastolic blood pressure 76 mm[Hg] Status: Comment s: Location: RUE; Position: Sitting Physical Findings 0 Status: Comments: Al De Correspondentol Screen - How many times in the [...] /min Status: Results Date Description Value Details :20 [[facility]] URINALYSIS, COMPLETE UA Turbidity Clear Range: Clear [...] Color Ltyellow UROBILINOGEN <=1.0 mg/dl Range: 0.1-1.0 :20 [[facility]] CULTURE, URINE, ROUTINE Comments: Source: Urine, Clean CatchBody Site: FINAL REPORT No Growth :00 . [facility] - PAP Case Click ImageLink [...] ZAY GRANADO M.D. On: 24-Jul-2019 13 :00 Interventions Provided PlanTo whom it may concern,Our office is planning on performing a hysterectomy on patient Jenn Horan and given her comorbidities, she will need medical clearance prior to scheduling procedure.Thank you for your assistance.Raina Vera MD Instructions Name Dates Details Instructions not documented [...] 13:45 Encounter Diagnosis: Problem not documented Appointment; [facility] On: 20-Dec-2018 11:30 Encounter Diagnosis: Problem not documented Appointment; ABIEL HALL NP On: 25-Dec-2018 13: 30 Encounter Diagnosis: Problem not documented Appointment; MARINO CAPELLAN M.D. On: 31-Dec-2018 15: 00 Encounter Diagnosis: Problem not documented Appointment; ANABEL ARIAS M.D. On: 26-Feb-2019 10:30 Encounter Diagnosis: Problem not documented Appointment; ASHLEY CORONEL M.D. On: 15-Apr-2019 15:40 Encounter Diagnosis: Problem not documented Appointment; RAINA VERA M.D. On: 02-May-2019 15 :00 Encounter Diagnosis: Problem not documented Appointment; ANABEL ARIAS M.D. On: 09-May-2019 10:45 Encounter Diagnosis: Problem not documented Appointment; ABIEL HALL NP On: 13-May-2019 11 :00 Encounter Diagnosis: Problem not documented
--- OUTSIDE RECORDS SUMMARY | 2019-07-21 22:36 | XMS REPORT | Summary of Care ---
:1985 Author Name Leyda Demarco Address Unavailable Unavailable , Care Team Providers Name Role Phone MARILIA Abbott Unavailable Unavailable NAHUM Abbott Unavailable Unavailable ALICIA Abbott Unavailable Unavailable Bethany AMRX Unavailable Philippe VARGAS MD Unavailable Philippe CEDENO [...] VIAL VIA NEBULIZER EVERY 4 HOURS NEEDED Quantity: 1 Refills: 0 BARBARA SIDHU M.D. Start : 07-Nov-2011 Active 60 x 3 ML Plas Cont FLUoxetine HCl - 20 MG Oral Capsule TAKE 1 CAPSULE BY MOUTH DAILY Quantity: 90 Refills: 1 JOSELO VARGAS M.D. Start : 02-Feb-2015 Active Abilify 10 MG Oral Tablet TAKE 1/2 TAB THREE TIMES DAILY AND 1/2 TAB AT BEDTIME NEEDED Quantity: 60 Refills: 5 ALICIA Abbott JOSELO Start : 02-Feb-2015 Active Plavix TABS Refills: 0 Active Nystatin-Triamcinolone 962924-8.1 UNIT/GM-% External Cream APPLY SPARINGLY TO AFFECTED [...] Details Influenza #1 on: 25-Feb-2007 Lot #: [id number] Td on: 25-Feb-2007 Lot #: [id number] Influenza on: 31-Dec-2007 Lot #: [id number] Influenza on: 03-Dec-2009 Lot #: [id number] Influenza on: 19-Dec-2010 Lot #: [id number] Fluzone Quadrivalent 0.5 ML Intramuscular Suspension on: Dec-2015 Lot #: [id number] Fluzone Quadrivalent 0.5 ML Intramuscular Suspension on: Dec-2016 Lot #: [id number] Fluzone Quadrivalent 0.5 ML Intramuscular Suspension on: Lot #: [id number] Fluzone Quadrivalent 0.5 ML Intramuscular Suspension P refilled Syringe on: 20-Dec-2018 Lot #: [id number] Family History Name Dates Details Family history [...] (finding) Vital Signs Date Test Result Details No [...] M.D. On: 24-Jul-2019 13 :00 Interventions Provided Medication ChangesAlbuterol Sulfate (2.5 MG/3ML) 0.083% Inhalation Nebulization Solution - Renew Instructions Name Dates Details Instructions not documented [...] 13:45 Encounter Diagnosis: Problem not documented Appointment; [facility], [facility] On: 20-Dec-2018 11:30 Encounter Diagnosis: Problem [...]
--- OUTSIDE RECORDS SUMMARY | 2019-07-21 22:36 | XMS REPORT | Summary of Care ---
:1985 Author Name ALICIA Abbott Address Unavailable Unavailable , Care Team Providers Name Role Phone MARILIA Abbott Unavailable Unavailable NAUHM Abbott Unavailable Unavailable ALICIA Abbott Unavailable Unavailable [...] Active Plavix TABS Refills: 0 Active Nystatin-Triamcinolone 425458-4.1 UNIT/GM-% External Cream APPLY SPARINGLY TO AFFECTED [...] Details Influenza #1 on: 25-Feb-2007 Lot #: [id number] Td on: 25-Feb-2007 Lot #: [id number] Influenza on: 31-Dec-2007 Lot #: [id number] Influenza on: 03-Dec-2009 Lot #: [id number] Influenza on: 19-Dec-2010 Lot #: [id number] Fluzone Quadrivalent 0.5 ML Intramuscular Suspension on: Dec-2015 Lot #: [id number] Fluzone Quadrivalent 0.5 ML Intramuscular Suspension on: Dec-2016 Lot #: [id number] Fluzone Quadrivalent 0.5 ML Intramuscular Suspension on: Lot #: [id number] Fluzone Quadrivalent 0.5 ML Intramuscular Suspension P refilled Syringe on: 20-Dec-2018 Lot #: [id number] Family History Name Dates Details Family history [...] On: 24-Jul-2019 13 :00 Interventions Provided Medication ChangesFLUoxetine HCl - 20 MG Oral Capsule - Renew Instructions Name Dates Details Instructions [...] Diagnosis: Problem not documented Appointment; [facility], [facility] On: 20-Dec-2018 11:30 Encounter Diagnosis: Problem not [...]
--- OUTSIDE RECORDS SUMMARY | 2019-07-21 22:37 | XMS REPORT | Summary of Care ---
:1985 Author Name NAHUM Abbott Address Unavailable Unavailable , Care Team Providers Name Role Phone MARILIA Abbott Unavailable Unavailable NAHUM Abbott Unavailable Unavailable ALICIA Abbott Unavailable Unavailable Bethany MARX Unavailable Philippe VARGAS MD Unavailable Philippe CEDENO [...] Active Plavix TABS Refills: 0 Active Nystatin-Triamcinolone 893365-6.1 UNIT/GM-% External Cream APPLY SPARINGLY TO AFFECTED [...] Details Influenza #1 on: 25-Feb-2007 Lot #: [id number] Td on: 25-Feb-2007 Lot #: [id number] Influenza on: 31-Dec-2007 Lot #: [id number] Influenza on: 03-Dec-2009 Lot #: [id number] Influenza on: 19-Dec-2010 Lot #: [id number] Fluzone Quadrivalent 0.5 ML Intramuscular Suspension on: Dec-2015 Lot #: [id number] Fluzone Quadrivalent 0.5 ML Intramuscular Suspension on: Dec-2016 Lot #: [id number] Fluzone Quadrivalent 0.5 ML Intramuscular Suspension on: Lot #: [id number] Fluzone Quadrivalent 0.5 ML Intramuscular Suspension P refilled Syringe on: 20-Dec-2018 Lot #: [id number] Family History Name Dates Details Family history [...] Planned Encounters Appointment; JOSELO VARGAS M.D. On: 17-Jun-2019 12:00 Appointment; ABIEL HALL NP On: 08-Jul-2019 11 :00 Appointment; BARBARA SIDHU M.D. On: 18-Jul-2019 16: 00 Appointment; ZAY GRANADO M.D. On: 24-Jul-2019 13 [...] 13:45 Encounter Diagnosis: Problem not documented Appointment; [facility] On: 20-Dec-2018 11:30 Encounter [...]
--- OUTSIDE RECORDS SUMMARY | 2019-07-21 22:38 | XMS REPORT | Summary of Care ---
:1985 Author Organization [facility] Address [address] [place] [address] Care Team Providers Name Role Phone MARILIA Abbott Unavailable Unavailable NAHUM Abbott Unavailable Unavailable ALICIA Abbott Unavailable Philippe Henderson MD Unavailable Philippe VARGAS MD Unavailable Philippe CEDENO MD [place] Unavailable Unavailable HUGO MARX Unavailable Unavailable MARILIA MARX Unavailable Unavailable HOMER MARX [place] Unavailable Unavailable CESILIA MARX Unavailable Unavailable LOY MARX Unavailable Unavailable Aislinn Abbott Unavailable Unavailable BETHANY Abbott Unavailable Unavailable NAHUM MARX [place] Unavailable Unavailable Unavailable Unavailable Unavailable Functional Status [...] Active Palpitations (785.1, R00.2) Status: Acti ve Mild intellectual disability (317, [...] Length Of Menstrual Periods St atus: Active Schizoaffective disorder, depressive type (295.70, F25.1) [...] Active 60 x 3 ML Plas Cont Plavix TABS Refills: 0 Active Nystatin-Triamcinolone 574266-6.1 UNIT/GM-% External Cream APPLY SPARINGLY TO AFFECTED AREA(S) TWICE DAILY Quantity: 1 Refills: 0 MARINO CAPELLAN M.D. Start : 31-Dec-2018 Active FLUoxetine HCl - 20 MG Oral Capsule TAKE 1 CAPSULE BY MOUTH DAILY Quantity: 90 Refills: 1 ALICIA BarreraBudJOSELO Start : 02-Feb-2015 Active Abilify 10 MG Oral Tablet TAKE 1/2 TAB THREE TIMES DAILY AND 1/2 TAB AT BEDTIME NEEDED Quantity: 60 Refills: 11 ALICIA Barrera.KeturahSukhjinder, JOSELO Start : 02-Feb-2015 Active Allergies and [...] Details Influenza #1 on: 25-Feb-2007 Lot #: [id number] Td on: 25-Feb-2007 Lot #: [id number] Influenza on: 31-Dec-2007 Lot #: [id number] Influenza on: 03-Dec-2009 Lot #: [id number] Influenza on: 19-Dec-2010 Lot #: [id number] Fluzone Quadrivalent 0.5 ML Intramuscular Suspension on: Dec-2015 Lot #: [id number] Fluzone Quadrivalent 0.5 ML Intramuscular Suspension on: Dec-2016 Lot #: [id number] Fluzone Quadrivalent 0.5 ML Intramuscular Suspension on: Lot #: [id number] Fluzone Quadrivalent 0.5 ML Intramuscular Suspension P refilled Syringe on: 20-Dec-2018 Lot #: [id number] Family History Name Dates Details Family history [...] Planned Encounters Appointment; ABIEL HALL NP On: 08-Jul-2019 11 :00 Appointment; JOSELO VARGAS M.D. On: 17-Jul-2019 11:00 Appointment; BARBARA SIDHU M.D. On: 18-Jul-2019 16: 00 Appointment; ZAY GRANADO M.D. On: 24-Jul-2019 13 :00 Appointment; JOSELO VARGAS M.D. On: 18-Nov-2019 11:00 Instructions Name Dates Details Instructions not [...] 13:45 Encounter Diagnosis: Problem not documented Appointment; [facility], [facility] On: 20-Dec-2018 11:30 Encounter Diagnosis: [...] 11 :00 Encounter Diagnosis: Problem not documented Appointment; JOSELO VARGAS M.D. On: 17-Jun-2019 12:00 Encounter Diagnosis: Problem not documented
--- OUTSIDE RECORDS SUMMARY | 2019-07-21 22:38 | XMS REPORT | Summary of Care ---
[...] BEDTIME NEEDED Quantity: 60 Refills: 11 ALICIA Abbott JOSELO Start : 02-Feb-2015 Active Plavix TABS Refills: 0 Active Nystatin-Triamcinolone 253303-2.1 UNIT/GM-% External Cream APPLY SPARINGLY TO AFFECTED [...] Details Influenza #1 on: 25-Feb-2007 Lot #: [id number] Td on: 25-Feb-2007 Lot #: [id number] Influenza on: 31-Dec-2007 Lot #: [id number] Influenza on: 03-Dec-2009 Lot #: [id number] Influenza on: 19-Dec-2010 Lot #: [id number] Fluzone Quadrivalent 0.5 ML Intramuscular Suspension on: Dec-2015 Lot #: [id number] Fluzone Quadrivalent 0.5 ML Intramuscular Suspension on: Dec-2016 Lot #: [id number] Fluzone Quadrivalent 0.5 ML Intramuscular Suspension on: Lot #: [id number] Fluzone Quadrivalent 0.5 ML Intramuscular Suspension P refilled Syringe on: 20-Dec-2018 Lot #: [id number] Family History Name Dates Details Family history [...] On: 24-Jul-2019 13 :00 Interventions Provided Medication ChangesAbilify 10 MG Oral Tablet - Renew Instructions Name Dates Details Instructions [...] 13:45 Encounter Diagnosis: Problem not documented Appointment; [facility], [facility] On: 20-Dec-2018 11:30 Encounter Diagnosis: Problem not [...]
--- OUTSIDE RECORDS SUMMARY | 2019-07-21 22:39 | XMS REPORT | Summary of Care ---
[...] Cont Plavix TABS Refills: 0 Active Nystatin-Triamcinolone 363831-9.1 UNIT/GM-% External Cream APPLY SPARINGLY TO AFFECTED AREA(S) TWICE DAILY Quantity: 1 Refills: 0 MARINO CAPELLAN M.D. Start : 31-Dec-2018 Active FLUoxetine HCl - 20 MG Oral Capsule TAKE 1 CAPSULE BY MOUTH DAILY Quantity: 90 Refills: 1 ALICIA BarreraBud JOSELO Start : 02-Feb-2015 Active Abilify 10 MG Oral Tablet TAKE 1/2 TAB THREE TIMES DAILY AND 1/2 TAB AT BEDTIME NEEDED Quantity: 60 Refills: 11 ALICIA BarreraLUCY FarrellLY Start : 02-Feb-2015 Active Allergies and Adverse [...] Details Influenza #1 on: 25-Feb-2007 Lot #: [id number] Td on: 25-Feb-2007 Lot #: [id number] Influenza on: 31-Dec-2007 Lot #: [id number] Influenza on: 03-Dec-2009 Lot #: [id number] Influenza on: 19-Dec-2010 Lot #: [id number] Fluzone Quadrivalent 0.5 ML Intramuscular Suspension on: Dec-2015 Lot #: [id number] Fluzone Quadrivalent 0.5 ML Intramuscular Suspension on: Dec-2016 Lot #: [id number] Fluzone Quadrivalent 0.5 ML Intramuscular Suspension on: Lot #: [id number] Fluzone Quadrivalent 0.5 ML Intramuscular Suspension P refilled Syringe on: 20-Dec-2018 Lot #: [id number] Family History Name Dates Details Family history [...] Appointment; JOSELO VARGAS M.D. On: 18-Nov-2019 11:00 Interventions Provided PlanDiscussed diagnosis, differential diagnosis, co morbidities, bio psychosocial factors, predisposing,precipitating and maintaining symptoms Intellectual disability, schizoaffective disorder/ increased AH related infection (UTI and URI), associated with poor sleep, agitation. Has been stable. Psych symptoms responded to Abilify to 5mg tid, and add 5mg bedtime as needed for psychosis, rarely takes PRN. currently stable. will continue, No EPS observed today. May take Abilify 5mg AM +10mg bedtime if too sedating.Continue fluoxetine 20mg daily for depression.Discussed medication benefits, side effects, risks with mother and patient.RTC 5 mos.Discussion/SummaryProgress made toward Goal significant progress, actively participated. Additional notes and Recommendations. Client will continue with counseling services. Discussed the following with patient/family/other Patient understands and will comply. Bio-psychosocial factors. Co-Morbidities. Differential diagnosis. Alternative medication(s). Current medication(s). Risks/benefits. Side effects. Target symptoms. Treatment plan. Diagnosis. follow-up 3-4months Instructions Name Dates Details Instructions not documented [...] Encounter Diagnosis: Problem not documented Appointment; BARBARA SIDUH M.D. On: 30-Nov-2017 13:0 0 Encounter Diagnosis: [...] Diagnosis: Problem not documented Appointment; [facility], [facility] On: 20-Dec-2018 11:30 Encounter Diagnosis: [...]
--- OUTSIDE RECORDS SUMMARY | 2019-07-21 22:39 | XMS REPORT | Summary of Care ---
:1985 Author Organization [facility] [facility] Address [address] [place] [address] Care Team Providers Name Role Phone MARILIA Abbott Unavailable Unavailable NAHUM Abbott Unavailable Unavailable ALICIA Abbott Unavailable Philippe Henderson MD Unavailable Philippe VARGAS MD Unavailable Philippe CEDENO MD [place] Unavailable Unavailable HUGO MARX Unavailable Unavailable MARILIA MARX Unavailable Unavailable HOMER MARX [place] Unavailable Unavailable CESILIA MARX Unavailable Unavailable LOY [...] need (V04.81, Z23) Status: A ctive Special [employer] Analysis Of Computerized Data Status: Active [...] BEDTIME NEEDED Quantity: 60 Refills: 11 ALICIA AbbottJOSELO Start : 02-Feb-2015 Active Plavix TABS Refills: 0 Active Nystatin-Triamcinolone 071951-7.1 UNIT/GM-% External Cream APPLY SPARINGLY TO AFFECTED [...] Details Influenza #1 on: 25-Feb-2007 Lot #: [id number] Td on: 25-Feb-2007 Lot #: [id number] Influenza on: 31-Dec-2007 Lot #: [id number] Influenza on: 03-Dec-2009 Lot #: [id number] Influenza on: 19-Dec-2010 Lot #: [id number] Fluzone Quadrivalent 0.5 ML Intramuscular Suspension on: Dec-2015 Lot #: [id number] Fluzone Quadrivalent 0.5 ML Intramuscular Suspension on: Dec-2016 Lot #: [id number] Fluzone Quadrivalent 0.5 ML Intramuscular Suspension on: Lot #: [id number] Fluzone Quadrivalent 0.5 ML Intramuscular Suspension P refilled Syringe on: 20-Dec-2018 Lot #: [id number] Family History Name Dates Details Family history [...] Planned Encounters Appointment; BARBARA SIDHU M.D. On: 27-Jun-2019 13:0 0 Appointment; ABIEL HALL NP On: 08-Jul-2019 11 [...] Diagnosis: Problem not documented Appointment; [facility], [facility] On: 20-Dec-2018 11:30 Encounter Diagnosis: [...]
--- OUTSIDE RECORDS SUMMARY | 2019-07-21 22:40 | XMS REPORT | Summary of Care ---
[...] AT BEDTIME NEEDED Quantity: 60 Refills: 11 JOSELO VARGAS M.D. Start : 02-Feb-2015 Active Plavix TABS Refills: 0 Active Nystatin-Triamcinolone 636666-8.1 UNIT/GM-% External Cream APPLY SPARINGLY TO AFFECTED [...] (729.5, M79.673) St atus: Resolved History of gross hematuria (V13.09, Z87.448) Status: Resolved History of headache (V13.89, Z87.898) St atus: Resolved History of heart block (V12.59, Z86.79) Status: Resolved History of hematuria (V13.09, Z87.448) S tatus: Resolved History of influenza (V12.09, Z87.09) St [...] pain (789.09, R10.2) Status: Resolved History of urinary frequency (V13.09, Z87.898) Status: Resolved History of Urinary retention (788.20, R33.9) Status: Resolved History of urinary tract infection (V13.02, Z87.440) Status: Resolved History of UTI symptoms (788.99, R39.9) Status: Resolved History of UTI symptoms (788.99, R39.9) Status: Resolved History of vaginal bleeding (V13.29, Z87.42) Status: Resolved History of varicella (V12.09, Z86.19) St atus: Resolved History of Viral intestinal infection (008.8, A08.4) Status: Resolved History of Yeast infection (112.9, B37.9) Status: Resolved Procedures Procedure Dates Details History of Appendectomy Completed History of Cholecystectomy Completed Immunization Name Dates Details Influenza #1 on: 25-Feb-2007 Lot #: [id number] Td on: 25-Feb-2007 Lot #: [id number] Influenza on: 31-Dec-2007 Lot #: [id number] Influenza on: 03-Dec-2009 Lot #: [id number] Influenza on: 19-Dec-2010 Lot #: [id number] Fluzone Quadrivalent 0.5 ML Intramuscular Suspension on: Dec-2015 Lot #: [id number] Fluzone Quadrivalent 0.5 ML Intramuscular Suspension on: Dec-2016 Lot #: [id number] Fluzone Quadrivalent 0.5 ML Intramuscular Suspension on: Lot #: [id number] Fluzone Quadrivalent 0.5 ML Intramuscular Suspension P refilled Syringe on: 20-Dec-2018 Lot #: [id number] Family History Name Dates Details Family history [...] Encounter Diagnosis: Problem not documented Appointment; MAXWELL LINDSEY-ROSIE On: 26-Nov-2018 13:30 Encounter Diagnosis: Problem not documented Appointment; JOSELO VARGAS M.D. On: 27-Nov-2018 10:30 Encounter Diagnosis: Problem not documented Appointment; NATALIE CEDENO M.D. On: 27-Nov-2018 13:45 Encounter Diagnosis: Problem not documented Appointment; [facility] On: 20-Dec-2018 11:30 Encounter Diagnosis: Problem [...] 17-Jun-2019 12:00 Encounter Diagnosis: Problem not documented Appointment; BARBARA SIDHU M.D. On: 27-Jun-2019 13:0 0 Encounter Diagnosis: Problem not documented
--- OUTSIDE RECORDS SUMMARY | 2019-07-21 22:40 | XMS REPORT | Summary of Care ---
[...] e Hyperlipidemia (272.4, E78.5) Status: Ac tive Psychosis (298.9, F29) Status: Active Depression (311, F32.9) Status: Active Right ankle swelling (719.07, M25.471) S tatus: Active Mild intellectual disability (317, F70) Status: [...] disorder, depressive type (295.70, F25.1) Status: Active Paroxysmal supraventricular tachycardia (427.0, I47.1) Status: Active Palpitations (785.1, R00.2) Status: Acti ve Acute otitis media (382.9, H66.90) Statu s: Active Medications Name Dates Details Clopidogrel Bisulfate [...] Active Plavix TABS Refills: 0 Active Nystatin-Triamcinolone 895615-9.1 UNIT/GM-% External Cream APPLY SPARINGLY TO AFFECTED AREA(S) TWICE DAILY Quantity: 1 Refills: 0 CAPELLAN M.D.MARINO Start : 31-Dec-2018 Active Corlanor 5 MG Oral Tablet 1/2 tablet PO BID Refills: 0 NAHUM M.D., BARBARA Start : 27-Jun-2019 Active Azithromycin 500 MG Oral Tablet TAKE 1 TABLET DAILY. Quantity: 1 Refills: 0 NAHUM M.D., BARBARA Start : 27-Jun-2019 Active 3 Tablet Box Fluticasone Propionate 50 MCG/ACT Nasal Suspension USE 2 SPRAYS IN EACH NOSTRIL ONCE DAILY Quantity: 1 Refills: 1 NAHUM M.D., BARBARA Start : 27-Jun-2019 Active 16 GM Bottle Allergies and Adverse Reactions Name Dates Details Biaxin TABS (Allergy) Status: Active Ceclor CAPS (Allergy) Status: Active Cipro TABS (Allergy) Status: Denied Demerol TABS (Allergy) Status: Active Diflucan TABS [...] Details Influenza #1 on: 25-Feb-2007 Lot #: [id number] Td on: 25-Feb-2007 Lot #: [id number] Influenza on: 31-Dec-2007 Lot #: [id number] Influenza on: 03-Dec-2009 Lot #: [id number] Influenza on: 19-Dec-2010 Lot #: [id number] Fluzone Quadrivalent 0.5 ML Intramuscular Suspension on: Dec-2015 Lot #: [id number] Fluzone Quadrivalent 0.5 ML Intramuscular Suspension on: Dec-2016 Lot #: [id number] Fluzone Quadrivalent 0.5 ML Intramuscular Suspension on: Lot #: [id number] Fluzone Quadrivalent 0.5 ML Intramuscular Suspension P refilled Syringe on: 20-Dec-2018 Lot #: [id number] Family History Name Dates Details Family history [...] VARGAS M.D. On: 18-Nov-2019 11:00 Interventions Provided Medication ChangesAzithromycin 500 MG Oral Tablet - StartFluticasone Propionate 50 MCG/ACT Nasal Suspension - [id number] year old CF with h/o CP mild intellectual disability, HTN,Asthma , Recurrent UTI, cardiac arrhythmia ? was called for right ear discomfort Ordered Antibiotic Tylenol Plenty of fluids Counseeld mom bnot to give any decongesants Hiney for cough vicks vaporub Flonase Call with worsening symptoms Stay home Instructions Name Dates Details Instructions not documented [...] 13:45 Encounter Diagnosis: Problem not documented Appointment; [facility] On: 20-Dec-2018 11:30 Encounter Diagnosis: [...]
--- OUTSIDE RECORDS SUMMARY | 2019-07-21 22:41 | XMS REPORT | Summary of Care ---
[...] TABLET BY MOUTH DAILY Quantity: 90 Refills: 0 BARBARA SIDHU M.D. Start : 21-Sep-2011 Active [...] Active Plavix TABS Refills: 0 Active Nystatin-Triamcinolone 711234-0.1 UNIT/GM-% External Cream APPLY SPARINGLY TO AFFECTED [...] Details Influenza #1 on: 25-Feb-2007 Lot #: [id number] Td on: 25-Feb-2007 Lot #: [id number] Influenza on: 31-Dec-2007 Lot #: [id number] Influenza on: 03-Dec-2009 Lot #: [id number] Influenza on: 19-Dec-2010 Lot #: [id number] Fluzone Quadrivalent 0.5 ML Intramuscular Suspension on: Dec-2015 Lot #: [id number] Fluzone Quadrivalent 0.5 ML Intramuscular Suspension on: Dec-2016 Lot #: [id number] Fluzone Quadrivalent 0.5 ML Intramuscular Suspension on: Lot #: [id number] Fluzone Quadrivalent 0.5 ML Intramuscular Suspension P refilled Syringe on: 20-Dec-2018 Lot #: [id number] Family History Name Dates Details Family history [...] M.D. On: 18-Nov-2019 11:00 Interventions Provided Medication ChangesClopidogrel Bisulfate 75 MG Oral Tablet - Renew Instructions Name Dates Details Instructions not documented Encounters Appointment; BARBARA SIDHU M.D. On: 27-Jul-2017 10:3 [...]
--- OUTSIDE RECORDS SUMMARY | 2019-07-21 22:41 | XMS REPORT | Summary of Care ---
[...] Active Plavix TABS Refills: 0 Active Nystatin-Triamcinolone 164664-8.1 UNIT/GM-% External Cream APPLY SPARINGLY TO AFFECTED [...] Details Influenza #1 on: 25-Feb-2007 Lot #: [id number] Td on: 25-Feb-2007 Lot #: [id number] Influenza on: 31-Dec-2007 Lot #: [id number] Influenza on: 03-Dec-2009 Lot #: [id number] Influenza on: 19-Dec-2010 Lot #: [id number] Fluzone Quadrivalent 0.5 ML Intramuscular Suspension on: Dec-2015 Lot #: [id number] Fluzone Quadrivalent 0.5 ML Intramuscular Suspension on: Dec-2016 Lot #: [id number] Fluzone Quadrivalent 0.5 ML Intramuscular Suspension on: Lot #: [id number] Fluzone Quadrivalent 0.5 ML Intramuscular Suspension P refilled Syringe on: 20-Dec-2018 Lot #: [id number] Family History Name Dates Details Family history [...] Encounter Diagnosis: Problem not documented Appointment; [facility] T[facility] On: 20-Dec-2018 11:30 Encounter Diagnosis: Problem [...]
--- OUTSIDE RECORDS SUMMARY | 2019-07-21 22:42 | XMS REPORT | Summary of Care ---
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, F70) Status: Active Flu vaccine need (V04.81, Z23) Status: A ctive Allergic rhinitis (477.9, J30.9) Status: Active Raynauds phenomenon (443.0, I73.00) Stat us: Active Asthma (493.90, J45.909) Status: Active Hypertrophy of breast (611.1, N62) Statu s: Active Other signs and symptoms in breast (611.79, N64.59) Status: Active Hyperlipidemia (272.4, E78.5) Status: Ac tive Heart block (426.9, I45.9) Status: Activ e Essential (primary) hypertension (401.9, I10) Status: Active Erythromelalgia (443.82, I73.81) Status: Active Anxiety (300.00, F41.9) Status: Active Acute otitis media (382.9, H66.90) Statu s: Active Medications Name Dates Details Clopidogrel Bisulfate 75 MG Oral Tablet TAKE 1 TABLET BY MOUTH DAILY Quantity: 90 Refills: 0 NAHUM Abbott BARBARA Start : 21-Sep-2011 Active Albuterol Sulfate (2.5 MG/3ML) 0.083% Inhalation Nebulization Solution USE 1 VIAL VIA NEBULIZER EVERY 4 HOURS NEEDED Quantity: 1 Refills: 0 NAHUM Abbott BARBARA Start : 07-Nov-2011 Active 60 x 3 ML Plas Cont FLUoxetine HCl - 20 MG Oral Capsule TAKE 1 CAPSULE BY MOUTH DAILY Quantity: 90 Refills: 1 JOSELO VARGAS M.D. Start : 02-Feb-2015 Active Abilify 10 MG Oral Tablet TAKE 1/2 TAB THREE TIMES DAILY AND 1/2 TAB AT BEDTIME NEEDED Quantity: 60 Refills: 11 JOSELO VARGAS M.D. Start : 02-Feb-2015 Active Nystatin-Triamcinolone 380544-5.1 UNIT/GM-% External Cream APPLY SPARINGLY TO AFFECTED AREA(S) TWICE DAILY Quantity: 1 Refills: 0 CAPELLAN M.D.MARINO Start : 31-Dec-2018 Active Azithromycin 500 MG Oral Tablet TAKE 1 TABLET DAILY. Quantity: 1 Refills: 0 NAHUM M.D., BARBARA Start : 27-Jun-2019 Active 3 Tablet Box Fluticasone Propionate 50 MCG/ACT Nasal Suspension USE 2 SPRAYS IN EACH NOSTRIL ONCE DAILY Quantity: 1 Refills: 1 NAHUM M.D., BARBARA Start : 27-Jun-2019 Active 16 GM Bottle Corlanor 5 MG Oral Tablet 1/2 tablet PO BID Refills: 0 NAHUM M.D., BARBARA Start : 27-Jun-2019 Active Plavix TABS Refills: 0 Active Allergies and Adverse Reactions Name Dates [...] Details Influenza #1 on: 25-Feb-2007 Lot #: [id number] Td on: 25-Feb-2007 Lot #: [id number] Influenza on: 31-Dec-2007 Lot #: [id number] Influenza on: 03-Dec-2009 Lot #: [id number] Influenza on: 19-Dec-2010 Lot #: [id number] Fluzone Quadrivalent 0.5 ML Intramuscular Suspension on: Dec-2015 Lot #: [id number] Fluzone Quadrivalent 0.5 ML Intramuscular Suspension on: Dec-2016 Lot #: [id number] Fluzone Quadrivalent 0.5 ML Intramuscular Suspension on: Lot #: [id number] Fluzone Quadrivalent 0.5 ML Intramuscular Suspension P refilled Syringe on: 20-Dec-2018 Lot #: [id number] Family History Name Dates Details Family history [...] Planned Goals not documented Planned Encounters Appointment; ZAY GRANADO M.D. On: 24-Jul-2019 13 :00 Appointment; ABIEL HALL NP On: 12-Aug-2019 11 :30 Appointment; JOSELO VARGAS M.D. On: 18-Nov-2019 11:00 [...] Encounter Diagnosis: Problem not documented Appointment; [facility] On: 20-Dec-2018 11:30 Encounter Diagnosis: [...] 0 Encounter Diagnosis: Problem not documented Appointment; ABIEL HALL NP On: 16-Jul-2019 15 :30 Encounter Diagnosis: Problem not documented
--- OUTSIDE RECORDS SUMMARY | 2019-07-21 22:43 | XMS REPORT | Summary of Care ---
:1985 Author Organization [facility] Address [address] [place] [address] Care Team Providers Name Role Phone MARILIA Abbott Unavailable Unavailable NAHUM Abbott Unavailable Unavailable ALICIA Abbott Unavailable Philippe Henderson MD Unavailable Philippe VARGAS MD Unavailable Philippe CEDENO MD [place] Unavailable Unavailable HUGO MARX Unavailable Unavailable MARILIA MARX Unavailable Unavailable HOMER MARX [place] Unavailable Unavailable CESILIA MARX Unavailable Unavailable LOY MARX Unavailable Unavailable Aislinn Abbott Unavailable Unavailable BETHANY Abbott Unavailable Unavailable NAHUM MARX [place] Unavailable Unavailable Unavailable Unavailable Unavailable Functional Status [...] Active Plavix TABS Refills: 0 Active Nystatin-Triamcinolone 088438-8.1 UNIT/GM-% External Cream APPLY SPARINGLY TO AFFECTED [...] Details Influenza #1 on: 25-Feb-2007 Lot #: [id number] Td on: 25-Feb-2007 Lot #: [id number] Influenza on: 31-Dec-2007 Lot #: [id number] Influenza on: 03-Dec-2009 Lot #: [id number] Influenza on: 19-Dec-2010 Lot #: [id number] Fluzone Quadrivalent 0.5 ML Intramuscular Suspension on: Dec-2015 Lot #: [id number] Fluzone Quadrivalent 0.5 ML Intramuscular Suspension on: Dec-2016 Lot #: [id number] Fluzone Quadrivalent 0.5 ML Intramuscular Suspension on: Lot #: [id number] Fluzone Quadrivalent 0.5 ML Intramuscular Suspension P refilled Syringe on: 20-Dec-2018 Lot #: [id number] Family History Name Dates Details Family history [...] Diagnosis: Problem not documented Appointment; [facility] On: 20-Dec-2018 11:30 Encounter Diagnosis: Problem [...]
--- OUTSIDE RECORDS SUMMARY | 2019-07-21 22:43 | XMS REPORT | Summary of Care ---
:1985 Author Name hCaya R.NSukhjinder Address [facility] Unavailable , Care Team [...] Active Plavix TABS Refills: 0 M.A.Active Nystatin-Triamcinolone 029009-0.1 UNIT/GM-% External Cream APPLY SPARINGLY TO AFFECTED AREA(S) TWICE DAILY Quantity: 1 Refills: 0 CAPELLAN M.D., MARINO Start : 31-Dec-2018 Active Corlanor 5 MG [...] Details Influenza #1 on: 25-Feb-2007 Lot #: [id number] Td on: 25-Feb-2007 Lot #: [id number] Influenza on: 31-Dec-2007 Lot #: [id number] Influenza on: 03-Dec-2009 Lot #: [id number] Influenza on: 19-Dec-2010 Lot #: [id number] Fluzone Quadrivalent 0.5 ML Intramuscular Suspension on: Dec-2015 Lot #: [id number] Fluzone Quadrivalent 0.5 ML Intramuscular Suspension on: Dec-2016 Lot #: [id number] Fluzone Quadrivalent 0.5 ML Intramuscular Suspension on: Lot #: [id number] Fluzone Quadrivalent 0.5 ML Intramuscular Suspension P refilled Syringe on: 20-Dec-2018 Lot #: [id number] Family History Name Dates Details Family history [...] Diagnosis: Problem not documented Appointment; [facility] On: 20-Dec-2018 11:30 Encounter Diagnosis: [...]
--- OUTSIDE RECORDS SUMMARY | 2019-07-21 22:43 | XMS REPORT | Summary of Care ---
:1985 Author Organization [place] [facility] Address [address] [place] [address] Care Team Providers Name Role Phone MARILIA Abbott Unavailable Unavailable NAHUM Abbott Unavailable Unavailable ALICIA Abbott Unavailable Philippe Henderson MD Unavailable Philippe VARGAS MD Unavailable Philippe CEDENO MD [place] Unavailable Unavailable HUGO MARX Unavailable Unavailable MARILIA MARX Unavailable Unavailable HOMER MARX [place] Unavailable Unavailable CESILIA MARX Unavailable Unavailable LOY [...] Active Plavix TABS Refills: 0 Active Nystatin-Triamcinolone 854227-5.1 UNIT/GM-% External Cream APPLY SPARINGLY TO AFFECTED [...] Details Influenza #1 on: 25-Feb-2007 Lot #: [id number] Td on: 25-Feb-2007 Lot #: [id number] Influenza on: 31-Dec-2007 Lot #: [id number] Influenza on: 03-Dec-2009 Lot #: [id number] Influenza on: 19-Dec-2010 Lot #: [id number] Fluzone Quadrivalent 0.5 ML Intramuscular Suspension on: Dec-2015 Lot #: [id number] Fluzone Quadrivalent 0.5 ML Intramuscular Suspension on: Dec-2016 Lot #: [id number] Fluzone Quadrivalent 0.5 ML Intramuscular Suspension on: Lot #: [id number] Fluzone Quadrivalent 0.5 ML Intramuscular Suspension P refilled Syringe on: 20-Dec-2018 Lot #: [id number] Family History Name Dates Details Family history [...] Diagnosis: Problem not documented Appointment; [facility] On: 20-Dec-2018 11:30 Encounter Diagnosis: Problem not documented Appointment; ABIEL HALL NP On: 25-Dec-2018 13: 30 Encounter Diagnosis: Problem not documented Appointment; MRAINO CAPELLAN M.D. On: 31-Dec-2018 15: 00 Encounter Diagnosis: Problem not documented Appointment; ANABEL ARIAS M.D. On: 26-Feb-2019 10:30 Encounter Diagnosis: Problem not documented Appointment; SAHLEY CORONEL M.D. On: 15-Apr-2019 15:40 Encounter Diagnosis: [...]
--- OUTSIDE RECORDS SUMMARY | 2019-07-21 22:43 | XMS REPORT | Summary of Care ---
:1985 Author Name Phu Demarco Address Unavailable Unavailable , Care Team Providers Name Role Phone MARILIA Abbott Unavailable Unavailable NAHUM Abbott Unavailable Unavailable ALICIA Abbott Unavailable Unavailable Phu Demarco Unavailable Unavailable Bethany MARX Unavailable Philippe VARGAS [...] MOUTH DAILY Quantity: 90 Refills: 0 BARBARA PLUMMER M.D. Start : 21-Sep-2011 Active [...] Active Plavix TABS Refills: 0 Active Nystatin-Triamcinolone 297103-1.1 UNIT/GM-% External Cream APPLY SPARINGLY TO AFFECTED AREA(S) TWICE DAILY Quantity: 1 Refills: 0 CAPELLAN M.D., MARINO Start : 31-Dec-2018 Active Corlanor 5 MG Oral Tablet 1/2 tablet PO BID Refills: 0 NHAUM M.D., BARBARA Start : 27-Jun-2019 Active Azithromycin [...] Details Influenza #1 on: 25-Feb-2007 Lot #: [id number] Td on: 25-Feb-2007 Lot #: [id number] Influenza on: 31-Dec-2007 Lot #: [id number] Influenza on: 03-Dec-2009 Lot #: [id number] Influenza on: 19-Dec-2010 Lot #: [id number] Fluzone Quadrivalent 0.5 ML Intramuscular Suspension on: Dec-2015 Lot #: [id number] Fluzone Quadrivalent 0.5 ML Intramuscular Suspension on: Dec-2016 Lot #: [id number] Fluzone Quadrivalent 0.5 ML Intramuscular Suspension on: Lot #: [id number] Fluzone Quadrivalent 0.5 ML Intramuscular Suspension P refilled Syringe on: 20-Dec-2018 Lot #: [id number] Family History Name Dates Details Family history [...] VARGAS M.D. On: 18-Nov-2019 11:00 Interventions Provided Discussion/SummaryGuideline Used: Clinic: FamilyMother calling back to speak with Dr. Plummer. States Leonel in the clinic was supposed to have contacted provider and someone call her back. States that was 3 hours aga. Chart reviewed. Advised mom that last entry in chart states that Dr. Power wanted her to go to the ED for transfusion. Let her knowI do not see a note stated Dr. Plummer was notified. Mom states she will try and take her tomorrow.States she is not bleeding currently. States her vital are fine. Reports she feels dizzy when standing. Told mom that she should take patient to ED as recommended earlier. Instructions Name Dates Details Instructions not documented Encounters Appointment; BARBARA PLUMMER M.D. On: 27-Jul-2017 10:3 [...] Encounter Diagnosis: Problem not documented Appointment; [facility] On: 20-Dec-2018 11:30 Encounter Diagnosis: Problem [...] not documented Appointment; BARBARA PLUMMER M.D. On: 27-Jun-2019 13:0 0 Encounter Diagnosis: Problem not documented Appointment; ABIEL HALL NP On: 16-Jul-2019 15 :30 Encounter Diagnosis: Problem not documented
[2019-07-21 23:34] LABS: BUN Blood Urea Nitrogen 8 mg/dL (7-18); Bicarbonate 27 mmol/L (21-32); Glucose Level 106 mg/dL (74-106); Potassium 3.7 mmol/L (3.5-5.1); Sodium Level 140 mmol/L (136-145)
[2019-07-21 23:36] LABS: Absolute Lymphocytes (CBC) 1.3 K/uL (0.7-4.9); Basophils % 0.8 % (0-1.3); Hematocrit 22.8 % (36.0-45.0); Lymphocytes % 32.8 % (15.3-44.8); MPV 8.3 fL (7.6-11.3); RBC Red Blood Cell Count 2.84 M/uL (3.86-4.86)
[2019-07-22] MEDS ORDERED: ONDANSETRON 4 MG/2 ML VIAL ONE (00:08)
--- NOTE | 2019-07-22 00:34 | ER ---
Nurse's Notes [facility] Name: Jenn Horan Age: 34 yrs Sex: Female : 1985 Arrival Date: 07/21/2019 Time: 22:11 Bed 14 Private MD: Diagnosis: Iron deficiency anemia, unspecified;Abnormal uterine and vaginal bleeding, unspecified Presentation: 07/20 22:30 Chief complaint: Parent and/or Guardian states: pt has been having a heavy menstrual bb cycle since February and is in the process of being scheduled for a hysterectomy but Sunday she had blood work done with a Hgb of 6 and was sent here by her physician for further evaluation and treatment. Coronavirus screen: Proceed with normal triage. Ebola Screen: No symptoms or risks identified at this time. Initial Sepsis Screen: Does the patient meet any 2 criteria? No. Patient's initial sepsis screen is negative. Does the patient have a suspected source of infection? No. Patient's initial sepsis screen is negative. Risk Assessment: Do you want to hurt yourself or someone else? Patient reports no desire to harm self or others. Onset of symptoms was July 21, 2019. 22:30 Method Of Arrival: Wheelchair bb 22:30 Acuity: SVETLANA 3 bb Triage Assessment: 23:35 General: Appears in no apparent distress. Behavior is calm, cooperative. Pain: Denies ls4 pain. Neuro: No deficits noted. Cardiovascular: Reports palpitations, Rhythm is regular Chest pain is denied. Respiratory: Airway is patent Respiratory effort is even, unlabored, Respiratory pattern is regular. GI: No deficits noted. : Reports vaginal bleeding that is STOPPED ON SUNDAY. PT MOTHER STATES THAT SHE HAD VAGINAL BLEEDING FOR 27 DAYS UP UNTIL SUNDAY. TICKET COUNTER: 22:40 LMP 07/21/2019 bb Historical: - Allergies: 22:40 Biaxin; bb 22:40 Cefaclor; bb 22:40 Demerol; bb 22:40 hydromorphone HCl; bb 22:40 meperidine HCl; bb 22:40 Morphine; bb 22:40 NSAIDS (Non-Steroidal Anti-Inflammatory Drug); bb 22:40 PENICILLINS; bb - Home Meds: 22:40 Abilify 15 mg oral tab once daily [Active]; Plavix 75 mg oral tab once daily [Active]; bb Corlanor 7.5 mg oral tab 1 tab 2 times per day [Active]; fluoxetine 20 mg Oral tab 1 tab once daily [Active]; Meclizine Oral [Active]; - PMHx: 22:40 Asthma; Cerebral Palsy; Erythromelalgia; GERD; Hearing Loss; Incomplete R BBB; POTS bb "when having an infection"; reactive airway; - PSHx: 22:40 lower right lobectomy; Cholecystectomy; right ovarian tumor removed; bb - Immunization history:: Adult Immunizations up to date. - Social history:: Smoking status: Patient denies any tobacco usage or history of. Patient/guardian denies using alcohol, street drugs. Screenin:35 Abuse screen: Denies threats or abuse. Denies injuries from another. Nutritional ls4 screening: No deficits noted. Tuberculosis screening: No symptoms or risk factors identified. Fall Risk None identified. Assessment: 23:30 Reassessment: Patient appears in no apparent distress at this time. Patient and/or ls4 family updated on plan of care and expected duration. Pain level reassessed. Patient is alert, oriented x 3, equal unlabored respirations, skin warm/dry/pink. 07/21 00:30 Reassessment: Patient appears in no apparent distress at this time. Patient and/or ls4 family updated on plan of care and expected duration. Pain level reassessed. Patient is alert, oriented x 3, equal unlabored respirations, skin warm/dry/pink. Vital Signs: 07/20 22:30 BP 113 / 63; Pulse 71; Resp 16 S; Temp 98.3(O); Pulse Ox 100% on R/A; Weight 86.18 kg bb (R); Height 5 ft. 8 in. (172.72 cm) (R); Pain 0/10; 07/21 00:18 BP 125 / 70; Pulse 67; Resp 22; Pulse Ox 99% on R/A; Pain 0/10; ls4 00:19 BP 124 / 79; Pulse 68; Resp 20; Pain 0/10; ls4 07/20 22:30 Body Mass Index 28.89 (86.18 kg, 172.72 cm) bb 00:19 pulse increased to 120 as pt continued to stand for about 2 minutes, although it is ls4 hard to tell if she did not get anxiety from the conversation about pots. ED Course: 07/20 22:11 Patient arrived in ED. fj1 22:30 Patient has correct armband on for positive identification. Call light in reach. Side ls4 rails up X 1. 22:31 Natanael Wyman MD is Attending Physician. quinn 22:33 Triage completed. bb 22:40 Arm band placed on Patient placed in an exam room, on a stretcher, on pulse oximetry. bb 22:58 Mily Doran, RN is Primary Nurse. ls4 23:32 No provider procedures requiring assistance completed. Initial lab(s) drawn, by de, ls4 sent to lab. Inserted saline lock: 18 gauge in right antecubital area, using aseptic technique. Blood collected. 23:38 CBC Smear Scan Sent. ls4 07/21 00:33 More Escudero MD is Referral Physician. quinn 00:46 intact, bleeding controlled, No redness/swelling at site. Pressure dressing applied. ls4 Administered Medications: 00:04 Drug: Zofran (Ondansetron) 4 mg Route: IVP; Site: right antecubital; mg2 00:20 Follow up: Response: No adverse reaction; Marked relief of symptoms ls4 Outcome: 00:09 Condition: good ls4 00:34 Discharge ordered by . quinn 00:45 Discharged to home ambulatory, with family. ls4 00:45 Discharge instructions given to patient, family, Instructed on discharge instructions, follow up and referral plans. medication usage, safety practices, Demonstrated understanding of instructions, follow-up care, medications. 00:49 Patient left the ED. ls4 Signatures: Natanael Wyman MD MD cha Ballard, Brenda RN RN bb Marco Mckenzie RN RN mg2 Mily Doran RN RN ls4 Xavier Perez fj
--- NOTE | 2019-07-22 00:34 | EDPHYS ---
Physician Documentation [facility] Name: Jenn Horan Age: 34 yrs Sex: Female : 1985 Arrival Date: 07/21/2019 Time: 22:11 Bed 14 Private MD: MANGO Physician Natanael Wyman HPI: 07/20 23:21 This 34 yrs old Female presents to ER via Wheelchair with complaints of quinn Doctor Referral. 23:21 The patient presents with vaginal bleeding that is daily since February, due to have quinn hystrectomy, told hgb 6. 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 LMP 07/21/2019 bb Historical: - Allergies: 22:40 Biaxin; bb 22:40 Cefaclor; bb 22:40 Demerol; bb 22:40 hydromorphone HCl; bb 22:40 meperidine HCl; bb 22:40 Morphine; bb 22:40 NSAIDS (Non-Steroidal Anti-Inflammatory Drug); bb 22:40 PENICILLINS; bb - Home Meds: 22:40 Abilify 15 mg oral tab once daily [Active]; Plavix 75 mg oral tab once daily [Active]; bb Corlanor 7.5 mg oral tab 1 tab 2 times per day [Active]; fluoxetine 20 mg Oral tab 1 tab once daily [Active]; Meclizine Oral [Active]; - PMHx: 22:40 Asthma; Cerebral Palsy; Erythromelalgia; GERD; Hearing Loss; Incomplete R BBB; POTS bb "when having an infection"; reactive airway; - PSHx: 22:40 lower right lobectomy; Cholecystectomy; right ovarian tumor removed; bb - Immunization history:: Adult Immunizations up to date. - Social history:: Smoking status: Patient denies any tobacco usage or history of. Patient/guardian denies using alcohol, street drugs. ROS: 23:23 Constitutional: Negative for fever, chills, and weight loss, Eyes: Negative for injury, quinn pain, redness, and discharge, ENT: Negative for injury, pain, and discharge, Neck: Negative for injury, pain, and swelling, Cardiovascular: Negative for chest pain, palpitations, and edema, Respiratory: Negative for shortness of breath, cough, wheezing, and pleuritic chest pain, Abdomen/GI: Negative for abdominal pain, nausea, vomiting, diarrhea, and constipation, Back: Negative for injury and pain, MS/Extremity: Negative for injury and deformity, Neuro: Negative for headache, weakness, numbness, tingling, and seizure, Psych: Negative for depression, anxiety, suicide ideation, homicidal ideation, and hallucinations, Allergy/Immunology: Negative for hives, rash, and allergies, Endocrine: Negative for neck swelling, polydipsia, polyuria, polyphagia, and marked weight changes, Hematologic/Lymphatic: Negative for swollen nodes, abnormal bleeding, and unusual bruising. 23:23 : Positive for vaginal bleeding, up until today, hx of heavy vaginal bleeding. Exam: 23:23 Constitutional: This is a well developed, well nourished patient who is awake, alert, quinn and in no acute distress. Head/Face: Normocephalic, atraumatic. Eyes: Pupils equal round and reactive to light, extra-ocular motions intact. Lids and lashes normal. Conjunctiva and sclera are non-icteric and not injected. Cornea within normal limits. Periorbital areas with no swelling, redness, or edema. ENT: Nares patent. No nasal discharge, no septal abnormalities noted. Tympanic membranes are normal and external auditory canals are clear. Oropharynx with no redness, swelling, or masses, exudates, or evidence of obstruction, uvula midline. Mucous membranes moist. Neck: Trachea midline, no thyromegaly or masses palpated, and no cervical lymphadenopathy. Supple, full range of motion without nuchal rigidity, or vertebral point tenderness. No Meningismus. Chest/axilla: Normal chest wall appearance and motion. Nontender with no deformity. No lesions are appreciated. Cardiovascular: Regular rate and rhythm with a normal S1 and S2. No gallops, murmurs, or rubs. Normal PMI, no JVD. No pulse deficits. Respiratory: Lungs have equal breath sounds bilaterally, clear to auscultation and percussion. No rales, rhonchi or wheezes noted. No increased work of breathing, no retractions or nasal flaring. Abdomen/GI: Soft, non-tender, with normal bowel sounds. No distension or tympany. No guarding or rebound. No evidence of tenderness throughout. Back: No spinal tenderness. No costovertebral tenderness. Full range of motion. MS/ Extremity: Pulses equal, no cyanosis. Neurovascular intact. Full, normal range of motion. Neuro: Awake and alert, GCS 15, oriented to person, place, time, and situation. Cranial nerves II-XII grossly intact. Motor strength 5/5 in all extremities. Sensory grossly intact. Cerebellar exam normal. Normal gait. 23:23 Skin: Appearance: Color: pale, Temperature: normal temperature, Moisture: normal moisture, petechiae, not noted, ecchymosis, not noted, flushing, not noted, abscess, not appreciated, cellulitis, is not appreciated. Vital Signs: 22:30 BP 113 / 63; Pulse 71; Resp 16 S; Temp 98.3(O); Pulse Ox 100% on R/A; Weight 86.18 kg bb (R); Height 5 ft. 8 in. (172.72 cm) (R); Pain 0/10; 07/21 00:18 BP 125 / 70; Pulse 67; Resp 22; Pulse Ox 99% on R/A; Pain 0/10; ls4 00:19 BP 124 / 79; Pulse 68; Resp 20; Pain 0/10; ls4 07/20 22:30 Body Mass Index 28.89 (86.18 kg, 172.72 cm) bb 00:19 pulse increased to 120 as pt continued to stand for about 2 minutes, although it is ls4 hard to tell if she did not get anxiety from the conversation about pots. MDM: 07/20 22:31 Patient medically screened. [facility] 23:26 Data reviewed: vital signs, nurses notes, lab test result(s). [facility] 07/20 22:59 Order name: CBC with Diff [facility] 07/20 22:59 Order name: Basic Metabolic Panel; Complete Time: 23:50 [facility] 07/20 23:46 Order name: Type and Screen [facility] 07/21 00:16 Order name: ABO/RH no charge [facility] 07/20 23:20 Order name: IV Start; Complete Time: 23:35 [facility] 07/21 00:09 Order name: Orthostatics; Complete Time: 00:48 [facility] 07/21 00:35 Order name: Urine Dipstick-Ancillary (obtain specimen); Complete Time: 17:00 [facility] Administered Medications: 07/21 00:04 Drug: Zofran (Ondansetron) 4 mg Route: IVP; Site: right antecubital; mg2 00:20 Follow up: Response: No adverse reaction; Marked relief of symptoms ls4 Disposition: 07/22/19 00:34 Discharged to Home. Impression: Iron deficiency anemia, unspecified, Abnormal uterine and vaginal bleeding, unspecified. - Condition is Stable. - Discharge Instructions: Abnormal Uterine Bleeding, Iron Deficiency Anemia, Adult, Iron-Rich Diet, Abnormal Uterine Bleeding, [id number], Iron Deficiency Anemia, Adult, [id number]. - Prescriptions for Ferrous Sulfate 325 mg (65 mg Iron) Oral Tablet - take 1 tablet by ORAL route every 8 hours; 90 tablet. - Medication Reconciliation Form, Thank You Letter, Antibiotic Education, Prescription Opioid Use form. - Follow up: Private Physician; When: 2 - 3 days; Reason: Recheck today's complaints, Continuance of care, Re-evaluation by your physician. Follow up: More Escudero MD; When: 2 - 3 days; Reason: Recheck today's complaints, Re-evaluation by your physician. - Problem is new. - Symptoms have improved. Signatures: Dispatcher [employer] [facility] Natanael Wyman MD MD cha Ballard, Brenda, RN RN bb Marco Mckenzie, ELENA RN mg2 Mily Doran RN RN ls4 Corrections: (The following items were deleted from the chart) 00:13 07/20 23:56 TYPE AND SCREEN+[id number] ordered. [facility] 07/21 00:49 00:34 07/22/2019 00:34 Discharged to Home. Impression: Iron deficiency anemia, ls4 unspecified; Abnormal uterine and vaginal bleeding, unspecified. Condition is Stable. Discharge Instructions: Abnormal Uterine Bleeding, Iron Deficiency Anemia, Adult, Iron-Rich Diet, Abnormal Uterine Bleeding, [id number], Iron Deficiency Anemia, Adult, [id number]. Prescriptions for Ferrous Sulfate 325 mg (65 mg Iron) Oral Tablet - take 1 tablet by ORAL route every 8 hours; 90 tablet. and Forms are Medication Reconciliation Form, Thank You Letter, Antibiotic Education, Prescription Opioid Use. Follow up: Private Physician; When: 2 - 3 days; Reason: Recheck today's complaints, Continuance of care, Re-evaluation by your physician. Follow up: More Escudero; When: 2 - 3 days; Reason: Recheck today's complaints, Re-evaluation by your physician. Problem is new. Symptoms have improved. quinn
[2019-07-22 00:51] LABS: Blood Morphology Comment NOTED (NOT SEEN); Platelet Estimate ADEQ; Polychromasia 1+
[2019-07-22 01:34] VITALS: TEMP 98.3
[2019-07-22 01:39] VITALS: O2SAT 99
[2019-07-22 01:44] VITALS: BP 124/79
== END 2019-07-22 00:49 | disposition home or self-care (01) ==
LOC: ER 22:10
DX: D50.9 Iron deficiency anemia, unspecified (principal); Z79.01 Long term (current) use of anticoagulants; Z88.0 Allergy status to penicillin; Z88.1 Allergy status to other antibiotic agents; Z88.5 Allergy status to narcotic agent; Z88.6 Allergy status to analgesic agent
CPT/HCPCS: 85025; 80048; 36415; 86900; 86850; 86901; 96374; 99284; J2405

== ENCOUNTER 2019-09-29 14:46 | Emergency (ER) | payer OTHER ==
--- OUTSIDE RECORDS SUMMARY | 2019-09-29 16:22 | XMS REPORT | Continuity of Care Document ---
:1985 Author Organization [employer] [facility] Care Team Providers Name Role Phone [employer] Unavailable Un available Problems Problem Status Onset Classification Date Comments Sourc e Date Reported Oligomenorrhea Active 06/20/2013 [facility] Scoliosis Active 06/20/2013 [facility] Nonpuerperal Active 06/20/2013 [facility] Galactor[facility]hea [facility] Left Breast Hypertrophy Of Left Active 06/20/2013 [facility] Breast [facility] Milky Nipple Active 06/20/2013 [facility] Atypical Face Pain Active 06/20/2013 [facility] Diarrhea (Symptom) Active 06/20/2013 [facility] Abdominal Pain In Active 07/12/2012 [facility] The Right Lower [facility] Belly (Rlq) Joint Pain, Active 06/20/2013 [facility] Localized In [facility] Hip Headache Active 06/20/2013 [facility] Mild Mental Active 07/12/2012 [facility] Retardation Physicia ns (Lower) Leg Active 06/20/2013 , non- [facility] Localized Swelling pitting P hysicians Bilateral Sore Throat Active 06/20/2013 [facility] Foot Pain (Soft Active 06/20/2013 [facility] Tissue) [facility] Limb Swelling Active 06/20/2013 [facility] Viral Active 06/20/2013 [facility] Gastroenteritis [facility] Abdomen Tenderness Active 06/20/2013 [facility] Direct Suprapubic Ph ys[facility] Onychomycosis Of Active 06/20/2013 [facility] The Toenails [facility]ici ans Cyst On The Right Active 06/20/2013 [facility] Ovary [facility] Nausea (Symptom) Active 06/20/2013 [facility] Acute Sinusitis Active 06/20/2013 [facility] Rectal Pain Active 06/20/2013 [facility] Anal Pain Active 06/20/2013 [facility] Fatigue Active 06/20/2013 [facility] Allergic Rhinitis Active 06/20/2013 [facility] Asthma Active 06/20/2013 [facility] Heart Block Active 06/20/2013 [facility] Limb Pain Active 06/20/2013 [facility] Hyperlipidemia Active 06/20/2013 [facility] Joint Pain, Active 06/20/2013 [facility] Shoulder Urinary Tract Active 06/20/2013 [facility] Infection [facility] Vaginal Candidiasis Active 06/20/2013 [facility] Arterial Active 06/20/2013 [facility] Insufficiency [facility] i[facility] Cerebral Palsy Active 06/20/2013 [facility] Esophageal Reflux Active 06/20/2013 [facility] Ankle Joint Pain Active 06/20/2013 [facility] Erythromelalgia Active 06/20/2013 [facility] Pharyngitis Active 06/20/2013 [facility] Hypertension Active 06/20/2013 [facility] Paroxysmal Active 06/20/2013 [facility] Supraventricular [facility] Tachycardia Abdominal Pain In Active 06/20/2013 [facility] Right Lower [facility] Belly (RLQ) Mild Intellectual Active 06/20/2013 [facility] Disabilities [facility] Dysmenorrhea Active 06/20/2013 [facility] Bartholin Gland Active 06/20/2013 [facility] Cyst [facility] Bacterial Vaginosis Active 06/20/2013 [facility] Pelvic Pain Active 06/20/2013 [facility] Gynecologic Active 06/20/2013 [facility] Services [facility] Intrauterine Device (IUD) Checking Raynaud's Active 06/20/2013 [facility]on [facility] s Medications Medication Details Route Status Patient Ordering Order Source Instructions Provider Date AmLODIPine ; Start Active [facility] Besylate 2.5 MG Date: Physicia ns Oral Tablet 4; End Date: 0 (Active) Promethazine HCl ; Start Active [facility] 12.5 MG Oral Date: 014 [facility] Tablet 4 (Active) Cyclobenzaprine ; Start Active [facility] HCl 5 MG Oral Date: 014 [facility] Tablet 4 (Active) RABEprazole Sodium ; Start Active [facility] 20 MG Oral Tablet Date: 014 [facility] i[facility] Delayed Release 4 (Active) MetroNIDAZOLE 500 ; Start Active [facility] MG Oral Tablet Date: 013 Physician s 3; End Date: 0 (Active) Hydrocodone-Acetam ; Start Active [facility] inophen 5-325 MG Date: Physici ans Oral Tablet 3 (Active) Flovent HFA 220 ; Start Active [facility] MCG/ACT Inhalation Date: Physi cians Aerosol 3 (Active) Lidocaine Viscous ; Start Active [facility] 2 % Mouth/Throat Date: 012 [facility] Solution 2; End Date: 0 (Active) Azithromycin 250 ; Start Active [facility] MG Oral Tablet Date: 012 Physician s 2; End Date: 0 (Active) Albuterol Sulfate ; Start Active [facility] (2.5 MG/3ML) Date: 012 [facility] 0.083% Inhalation Nebulization 2 Solution (Active) ProAir HFA 108 (90 ; Start Active [facility] Base) MCG/ACT Date: 012 [facility] Inhalation Aerosol Solution 2; End Date: 0 (Active) Proventil HFA 108 ; Start Active [facility] (90 Base) MCG/ACT Date: 012 Physic i[facility] Inhalation Aerosol Solution 2 (Active) Clopidogrel ; Start Active [facility] Bisulfate 75 MG Date: 012 Phys[facility] ns Oral Tablet 2; End Date: 0 (Active) TraMADol HCl 50 MG ; Start Active [facility] Oral Tablet Date: 010 [facility] 0 (Active) Montelukast Sodium ; Start Active [facility] 10 MG Oral Tablet Date: 010 Physic ians 0 (Active) Aciphex 20 MG Oral ; Start Active [facility] Tablet Delayed Date: 009 Physician s Release 9 (Active) Cranberry CAPS (Active) Active [facility] Metamucil POWD (Active) Active [facility] Cranberry CAPS (Active) Active [facility] Allergies, Adverse Reactions, Alerts Substance Category Reaction Severity Reaction Status Date Comments S ource type Reported Ceclor CAPS drug drug Active [facility] allergy allergy Physicia ns Penicillins drug drug Active [facility] allergy allergy Physicia ns Biaxin TABS drug drug Active [facility] allergy allergy Physicia ns Morphine drug drug Active [facility] Derivatives allergy allergy Phys icians NSAIDs drug drug Active [facility] allergy allergy Physicia ns Cipro TABS drug drug Active [facility] allergy allergy Physicia ns Levaquin TABS drug drug Active [facility] allergy allergy Physicia ns Demerol TABS drug drug Active [facility] allergy allergy Physicia ns Dilaudid TABS drug drug Active [facility] allergy allergy Physicia ns Immunizations Immunization Date Given Site Status Last Comments Source Updated Influenza 12/19/2010 completed [facility] Influenza 12/03/2009 completed [facility] Influenza 12/31/2007 completed [facility] Influenza 02/25/2007 completed [facility] Td 02/25/2007 completed [facility] Results No Data Provided for This Section Pathology Reports No Data Provided for This Section Diagnostic Reports No Data Provided for This Section Consultation Notes No Data Provided for This Section Discharge Summaries No Data Provided for This Section History and Physicals No Data Provided for This Section Vital Signs No Data Provided for This Section Encounters Location Location Encounter Encounter Reason Attending ADM DC Stat us Source Details Type Number For Provider Date Date Visit AUDIT [id number] 11/06 /2011 [facility] AUDIT [id number] 11/06 [facility] AUDIT [id number] 11/13 [facility] AUDIT [id number] 12/28 [facility] AUDIT [id number] 12/28 [facility] AUDIT [id number] 04/05 /2012 [facility] AUDIT [id number] 04/16 /2012 [facility] AUDIT [id number] 04/17 [facility] AUDIT [id number] 04/19 [facility] AUDIT [id number] 05/03 /2012 [facility] EST, [id number] 05/07 05/03 [place] Provider: [facility] TIO Boyle, Status: Pen, Time: 10:30 AM [facility], [id number] 06/20 05/03 [place] Provider: [facility] Tito Herrera, Status: Pen, Time: 10:20 AM AUDIT [id number] 06/26 [facility] AUDIT [id number] 07/12 [facility] EST, [id number] 08/13 07/12 [place] Provider: [facility]ici CHER Treviño, Status: Pen, Time: 10:00 AM AUDIT [id number] 08/15 [facility] AUDIT [id number] 09/06 [facility] AUDIT [id number] 09/08 [facility] AUDIT [id number] 09/09 [facility] AUDIT [id number] 09/10 [facility] AUDIT [id number] 10/17 [facility] AUDIT [id number] 11/29 [facility] AUDIT [id number] 02/17 [facility] AUDIT [id number] 02/19 [facility] AUDIT [id number] 04/04 /2013 [facility] AUDIT [id number] 04/14 [facility] AUDIT [id number] 05/21 /2013 [facility] ECL, [id number] 05/23 05/21 [place] Provider: [facility]ici Titus Reynaga, Status: Pen, Time: 1:45 PM AUDIT [id number] 05/23 [facility] AUDIT [id number] 05/26 /2013 [facility] AUDIT [id number] 06/20 /2013 [facility] EST, [id number] 06/26 06/20 [place] Provider: [facility] TIO Boyle, Status: Pen, Time: 8:30 AM Procedures No Data Provided for This Section Assessment and Plan No Data Provided for This Section Plan of Care Plan of Care Date Source [H] GC /CT PCR 09/06/2012 [facility] 09[facility]09/2012 [facility] [H] GC /CT PCR 09/06/2012 Rout[facility] 09/09/2012 [facility] [QLH] BV/ VAGINITIS PANEL DNA 09/06/2012 [place] [facility] PROBE AFFIRM 09/06/2012 Routine[H] GC /CT PCR 09/06/2012 Routine[QLH] URINALYSIS, COMPLETE 09/06/2012 Routine[QLH] CULTURE, URINE, ROUTINE 09/06/2012 Routine[QLH] CBC (INCLUDES DIFF/PLT) 09/06/2012 Routine[QLH] ABO GROUP AND RH TYPE 09/06/2012 Routine Cardiology Referral 04/16/2012 04/16/2012 [facility] Routine Xray Neck PA and Lateral 11/14/2011 [facility] 12/05/2010 [facility][L] Lipid Panel w/ Chol/HDL Ratio 12/19/2010 Routine[QLH] HEMOGLOBIN A1c 12/19/2010 Routine[QLH] TSH, 3RD GENERATION 12/19/2010 Routine[O] Xray SHOULDER COMPLETE MIN. OF 2 VIEWS 12/19/2010 StatCardiology Referral 12/05/2010 Routine Urinalysis w/ Microscopic 11/07/2011 [facility] 11/11/2010 RoutineXray Neck PA and Lateral 12/05/2010 Routine[L] Lipid Panel w/ Chol/HDL Ratio 12/19/2010 Routine[QLH] HEMOGLOBIN A1c 12/19/2010 Routine[QLH] TSH, 3RD GENERATION 12/19/2010 Routine[O] Xray SHOULDER COMPLETE MIN. OF 2 VIEWS 12/19/2010 StatCardiology Referral 12/05/2010 Routine Urinalysis w/ Microscopic 11/07/2011 [facility] 11/11/2010 RoutineXray Neck PA and Lateral 12/05/2010 Routine[L] Lipid Panel w/ Chol/HDL Ratio 12/19/2010 Routine[QLH] HEMOGLOBIN A1c 12/19/2010 Routine[QLH] TSH, 3RD GENERATION 12/19/2010 Routine[O] Xray SHOULDER COMPLETE MIN. OF 2 VIEWS 12/19/2010 StatCardiology Referral 12/05/2010 Routine Social History Social History Date Source No Psychosocial Support Lack Of 06/20/2013 [facility] Recreational Opportunities (Denied) No Psychosocial Support Lack Of Companionship (Denied) No Psychosocial Support (Denied) No Drug Use (Denied) No Exercising Regularly (Denied) Education History (Active) No Currently In School (Denied) Educational Level Grade (Active) Educational Level - Grades 7-12 (Active) Educational Level - Has High School Diploma (Active) Occupation: Comments: disabled (Active) Marital History (Active) Marital History - Never (Active) Marital History - Single (Active) Marital History - Single And Uninvolved (Active) Functional Status (Active) Mental Disability: (Active) Physical Disability: (Active) Mental Disability: Incapable Of Substantial Gainful Activity (Active) No Physical Disability: Unable To Walk (Denied) No Physical Disability: Unable To Stand (Denied) No Physical Disability: Unable To Sit (Denied) No Physical Disability: Severe Visual Impairment (Denied) No Physical Disability: Severe Cardiovascular Impairment (Denied) No Physical Disability: Severe Breathing Difficulty (Denied) Phys Disability: Incapable Of Substantial Gainful Activity (Active) Caregiver (Active) Caregiver Level Of Support Sufficient And Effective (Active) No Material / Financial Neglect (Denied) No Violation Of Personal Rights (Denied) No Psychosocial Support Lack Of Social Support (Denied) No Alcohol (Denied) Never A Smoker (Active) Never A Smoker (Active) Never Drank Alcohol (Active) Family History Value Date Source Family history of Reported 06/20/2013 [facility] Family History Of Heart Disease (Active) Family history of Reported Family History Of Ischemic Heart Disease (Active) Family history of Diabetes Mellitus (V18.0); (Active) Family history of Migraine Headache (Active) Family history of Arthritis (V17.7); (Active) Family history of Hypertension (V17.49); (Active) Family history of Reported 05/26/2013 [facility] Family History Of Heart Disease (Active) Family history of Reported Family History Of Ischemic Heart Disease (Active) Family history of Diabetes Mellitus (V18.0); (Active) Family history of Migraine Headache (Active) Family history of Arthritis (V17.7); (Active) Family history of Hypertension (V17.49); (Active) Family history of Reported 05/23/2013 [facility] Family History Of Heart Disease (Active) Family history of Reported Family History Of Ischemic Heart Disease (Active) Family history of Diabetes Mellitus (V18.0); (Active) Family history of Migraine Headache (Active) Family history of Arthritis (V17.7); (Active) Family history of Hypertension (V17.49); (Active) Family history of Reported 05/21/2013 [facility] Family History Of Heart Disease (Active) Family history of Reported Family History Of Ischemic Heart Disease (Active) Family history of Diabetes Mellitus (V18.0); (Active) Family history of Migraine Headache (Active) Family history of Arthritis (V17.7); (Active) Family history of Hypertension (V17.49); (Active) Family history of Reported 04/14/2013 [facility] Family History Of Heart Disease (Active) Family history of Reported Family History Of Ischemic Heart Disease (Active) Family history of Diabetes Mellitus (V18.0); (Active) Family history of Migraine Headache (Active) Family history of Arthritis (V17.7); (Active) Family history of Hypertension (V17.49); (Active) Family history of Reported 04/04/2013 [facility] Family History Of Heart Disease (Active) Family history of Reported Family History Of Ischemic Heart Disease (Active) Family history of Diabetes Mellitus (V18.0); (Active) Family history of Migraine Headache (Active) Family history of Arthritis (V17.7); (Active) Family history of Hypertension (V17.49); (Active) Family history of Reported 02/19/2013 [facility] Family History Of Heart Disease (Active) Family history of Reported Family History Of Ischemic Heart Disease (Active) Family history of Diabetes Mellitus (V18.0); (Active) Family history of Migraine Headache (Active) Family history of Arthritis (V17.7); (Active) Family history of Hypertension (V17.49); (Active) Family history of Reported 02/17/2013 [facility] Family History Of Heart Disease (Active) Family history of Reported Family History Of Ischemic Heart Disease (Active) Family history of Diabetes Mellitus (V18.0); (Active) Family history of Migraine Headache (Active) Family history of Arthritis (V17.7); (Active) Family history of Hypertension (V17.49); (Active) Family history of Reported 11/29/2012 [facility] Family History Of Heart Disease (Active) Family history of Reported Family History Of Ischemic Heart Disease (Active) Family history of Diabetes Mellitus (V18.0); (Active) Family history of Migraine Headache (Active) Family history of Arthritis (V17.7); (Active) Family history of Hypertension (V17.49); (Active) Family history of Reported 10/17/2012 [facility] Family History Of Heart Disease (Active) Family history of Reported Family History Of Ischemic Heart Disease (Active) Family history of Diabetes Mellitus (V18.0); (Active) Family history of Migraine Headache (Active) Family history of Arthritis (V17.7); (Active) Family history of Hypertension (V17.49); (Active) Family history of Reported 09/10/2012 [facility] Family History Of Heart Disease (Active) Family history of Reported Family History Of Ischemic Heart Disease (Active) Family history of Diabetes Mellitus (V18.0); (Active) Family history of Migraine Headache (Active) Family history of Arthritis (V17.7); (Active) Family history of Hypertension (V17.49); (Active) Family history of Reported 09/09/2012 [facility] Family History Of Heart Disease (Active) Family history of Reported Family History Of Ischemic Heart Disease (Active) Family history of Diabetes Mellitus (V18.0); (Active) Family history of Migraine Headache (Active) Family history of Arthritis (V17.7); (Active) Family history of Hypertension (V17.49); (Active) Family history of Reported 09/09/2012 [facility] Family History Of Heart Disease (Active) Family history of Reported Family History Of Ischemic Heart Disease (Active) Family history of Diabetes Mellitus (V18.0); (Active) Family history of Migraine Headache (Active) Family history of Arthritis (V17.7); (Active) Family history of Hypertension (V17.49); (Active) Family history of Reported 09/06/2012 [facility] Family History Of Heart Disease (Active) Family history of Reported Family History Of Ischemic Heart Disease (Active) Family history of Diabetes Mellitus (V18.0); (Active) Family history of Migraine Headache (Active) Family history of Arthritis (V17.7); (Active) Family history of Hypertension (V17.49); (Active) Family history of Reported 08/15/2012 [facility] Family History Of Heart Disease (Active) Family history of Reported Family History Of Ischemic Heart Disease (Active) Family history of Diabetes Mellitus (V18.0); (Active) Family history of Migraine Headache (Active) Family history of Arthritis (V17.7); (Active) Family history of Hypertension (V17.49); (Active) Family history of Reported 07/12/2012 [facility] Family History Of Heart Disease (Active) Family history of Reported Family History Of Ischemic Heart Disease (Active) Family history of Diabetes Mellitus (V18.0); (Active) Family history of Migraine Headache (Active) Family history of Arthritis (V17.7); (Active) Family history of Hypertension (V17.49); (Active) Family history of Reported 06/26/2012 [facility] Family History Of Heart Disease (Active) Family history of Reported Family History Of Ischemic Heart Disease (Active) Family history of Diabetes Mellitus (V18.0); (Active) Family history of Migraine Headache (Active) Family history of Arthritis (V17.7); (Active) Family history of Hypertension (V17.49); (Active) Family history of Reported 05/03/2012 [facility] Family History Of Heart Disease (Active) Family history of Reported Family History Of Ischemic Heart Disease (Active) Family history of Diabetes Mellitus (V18.0); (Active) Family history of Migraine Headache (Active) Family history of Arthritis (V17.7); (Active) Family history of Hypertension (V17.49); (Active) Family history of Reported 04/19/2012 [facility] Family History Of Heart Disease (Active) Family history of Reported Family History Of Ischemic Heart Disease (Active) Family history of Diabetes Mellitus (V18.0); (Active) Family history of Migraine Headache (Active) Family history of Arthritis (V17.7); (Active) Family history of Hypertension (V17.49); (Active) Family history of Reported 04/17/2012 [facility] Family History Of Heart Disease (Active) Family history of Reported Family History Of Ischemic Heart Disease (Active) Family history of Diabetes Mellitus (V18.0); (Active) Family history of Migraine Headache (Active) Family history of Arthritis (V17.7); (Active) Family history of Hypertension (V17.49); (Active) Family history of Reported 04/16/2012 [facility] Family History Of Heart Disease (Active) Family history of Reported Family History Of Ischemic Heart Disease (Active) Family history of Diabetes Mellitus (V18.0); (Active) Family history of Migraine Headache (Active) Family history of Arthritis (V17.7); (Active) Family history of Hypertension (V17.49); (Active) Family history of Reported 04/05/2012 [facility] Family History Of Heart Disease (Active) Family history of Reported Family History Of Ischemic Heart Disease (Active) Family history of Diabetes Mellitus (V18.0); (Active) Family history of Migraine Headache (Active) Family history of Arthritis (V17.7); (Active) Family history of Hypertension (V17.49); (Active) Family history of Reported 12/29/2011 [facility] Family History Of Heart Disease (Active) Family history of Reported Family History Of Ischemic Heart Disease (Active) Family history of Diabetes Mellitus (V18.0); (Active) Family history of Migraine Headache (Active) Family history of Arthritis (V17.7); (Active) Family history of Hypertension (V17.49); (Active) Family history of Reported 12/29/2011 [facility] Family History Of Heart Disease (Active) Family history of Reported Family History Of Ischemic Heart Disease (Active) Family history of Diabetes Mellitus (V18.0); (Active) Family history of Migraine Headache (Active) Family history of Arthritis (V17.7); (Active) Family history of Hypertension (V17.49); (Active) Family history of Reported 11/14/2011 [facility] Family History Of Heart Disease (Active) Family history of Reported Family History Of Ischemic Heart Disease (Active) Family history of Diabetes Mellitus (V18.0); (Active) Family history of Migraine Headache (Active) Family history of Arthritis (V17.7); (Active) Family history of Hypertension (V17.49); (Active) Family history of Reported 11/07/2011 [facility] Family History Of Heart Disease (Active) Family history of Reported Family History Of Ischemic Heart Disease (Active) Family history of Diabetes Mellitus (V18.0); (Active) Family history of Migraine Headache (Active) Family history of Arthritis (V17.7); (Active) Family history of Hypertension (V17.49); (Active) Family history of Reported 11/07/2011 [facility] Family History Of Heart Disease (Active) Family history of Reported Family History Of Ischemic Heart Disease (Active) Family history of Hypertension (V17.49); (Active) Family history of Diabetes Mellitus (V18.0); (Active) Family history of Migraine Headache (Active) Family history of Arthritis (V17.7); (Active) Advance Directives Order Name Results Value Date Source Advance Directives Advance Directives No Advance 06/20/2013 [facility] Directives available. Advance Directives Advance Directives No Advance 05/26/2013 [facility] Directives available. Advance Directives Advance Directives No Advance 05/23/2013 [facility] Directives available. Advance Directives Advance Directives No Advance 05/21/2013 [facility] Directives available. Advance Directives Advance Directives No Advance 04/14/2013 [facility] Directives available. Advance Directives Advance Directives No Advance 04/04/2013 [facility] Directives available. Advance Directives Advance Directives No Advance 02/19/2013 [facility] Directives available. Advance Directives Advance Directives No Advance 02/17/2013 [facility] Directives available. Advance Directives Advance Directives No Advance 11/29/2012 [facility] Directives available. Advance Directives Advance Directives No Advance 10/17/2012 [facility] Directives available. Advance Directives Advance Directives No Advance 09/10/2012 [facility] Directives available. Advance Directives Advance Directives No Advance 09/09/2012 [facility] Directives available. Advance Directives Advance Directives No Advance 09/09/2012 [facility] Directives available. Advance Directives Advance Directives No Advance 09/06/2012 [facility] Directives available. Advance Directives Advance Directives No Advance 08/15/2012 [facility] Directives available. Advance Directives Advance Directives No Advance 07/12/2012 [facility] Directives available. Advance Directives Advance Directives No Advance 06/26/2012 [facility] Directives available. Advance Directives Advance Directives No Advance 05/03/2012 [facility] Directives available. Advance Directives Advance Directives No Advance 04/19/2012 [facility] Directives available. Advance Directives Advance Directives No Advance 04/17/2012 [facility] Directives available. Advance Directives Advance Directives No Advance 04/16/2012 [facility] Directives available. Advance Directives Advance Directives No Advance 04/05/2012 [facility] Directives available. Advance Directives Advance Directives No Advance 12/29/2011 [facility] Directives available. Advance Directives Advance Directives No Advance 12/29/2011 [facility] Directives available. Advance Directives Advance Directives No Advance 11/14/2011 [facility] Directives available. Advance Directives Advance Directives No Advance 11/07/2011 [facility] Directives available. Advance Directives Advance Directives No Advance 11/07/2011 [facility] Directives available. Functional Status No Data Provided for This Section
--- OUTSIDE RECORDS SUMMARY | 2019-09-29 16:25 | XMS REPORT | Continuity of Care Document ---
:1985 Author Organization [facility] t Address [address] [place] [address] Care Team Providers Name Role Phone RAFAEL Attending Clinician Unavailable LENIN Attending Clinician Unavailable LEONARDI Attending Clinician Unavailable YOHANA Attending Clinician Unavailable NAHUM Attending Clinician Unavailable VARGAS Attending Clinician Unavailable HUGO Attending Clinician Unavailable IKWGOPAL Attending Clinician Unavailable HOMER Attending Clinician Unavailable CAPELLAN Attending Clinician Unavailable MED PROVIDER Attending Clinician Unavailable CEDENO Attending Clinician Unavailable HOLTER Attending Clinician Unavailable LOGHIN Attending Clinician Unavailable LE Attending Clinician Unavailable DA Attending Clinician Unavailable ROXANA Attending Clinician Unavailable VOWELS Attending Clinician Unavailable ROMI BUTLER Attending Clinician Unavailable Aislinn Attending Clinician Unavailable MUNIRA Attending Clinician Unavailable DELICIA Attending Clinician Unavailable Problems Condition Condition Condition Status Onset Resolution Last Treating Co mments Source Name Details Category Date Date Treatment Clinician Date Special Special Problem Active Univers Dr. Dr. de la cruz of Services Services [place] Analysis Analysis Physic i Of Of ans Computeriz Computeriz ed Data ed Data History of History of Problem Resolve Univers Nonpuerper Nonpuerper d it y of al al [place] Galactorrh Galactorrh Ph ysici ea Of The ea Of The ans Left Left Breast Breast Ovarian Ovarian Problem Active Univers Cyst Cyst ity of [place] Physici ans Irregular Irregular Problem Active Uni vers Length Of Length Of ity of Menstrual Menstrual [place] Periods Periods Physici ans History of History of Problem Resolve Univers urinary urinary d [place] of frequency frequency [place] ans History of History of Problem Resolve Univers Abdominal Abdominal d ity of pain, RLQ pain, RLQ [place] (right (right Physici lower lower ans quadrant) quadrant) History of History of Problem Resolve Univers Abdominal Abdominal d [place] of tenderness tenderness [place] ans History of History of Problem Resolve Univers Abnormal Abnormal d ity of bleeding bleeding [place] in in Physici menstrual menstrual ans cycle cycle History of History of Problem Resolve Univers pharyngiti pharyngiti d it y of s s [place] Physici ans History of History of Problem Resolve Univers urinary urinary d ity of tract tract [place] infection infection Phys ici ans History of History of Problem Resolve Univers Acute Acute d [place] of recurrent recurrent [place] sinusitis sinusitis Phys ici ans History of History of Problem Resolve Univers vaginal vaginal d ity of bleeding bleeding [place] Physici ans History of History of Problem Resolve Univers Rectal Rectal d ity of pain pain [place] Physici ans History of History of Problem Resolve Univers Asthma Asthma d ity of with acute with acute [place] exacerbati exacerbati Ph ysici on on ans History of History of Problem Resolve Univers Atypical Atypical d it[place] of face pain face pain [place] ans History of History of Problem Resolve Univers bacterial bacterial d [place] of pneumonia pneumonia [place] ans History of History of Problem Resolve Univers Bartholin Bartholin d ity of gland cyst gland cyst [place] [facility] ans History of History of Problem Resolve Univers varicella varicella d ity of [place] Physici ans History of History of Problem Resolve Univers Chest Chest d ity of pressure pressure [place] Physici ans History of History of Problem Resolve Univers 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 Phys ici ans History of History of Problem Resolve Univers Cough Cough d ity of [place] Physici ans History of History of Problem Resolve Univers Extremity Extremity d ity of pain pain [place] Physici ans History of History of Problem Resolve Univers Foot pain Foot pain d ity of [place] Physici ans History of History of Problem Resolve Univers pyelonephr pyelonephr d it y of itis itis [place] Physici ans History of History of Problem Resolve Univers Raynaud's Raynaud's d ity of syndrome syndrome [place] Physici ans History of History of Problem Resolve Univers Joint Joint d ity of pain, hip pain, hip [place] Phys[place] ans History of History of Problem Resolve Univers Left ear Left ear d ity of pain pain [place] Physici ans History of History of Problem Resolve Univers Limb Limb d ity of swelling swelling [place] Physici ans History of History of Problem Resolve Univers Mental Mental d ity of status status [place] change change Physici ans History of History of Problem Resolve Univers Noninfecti Noninfecti d it y of ous ous [place] diarrhea diarrhea Physic i ans History of History of Problem Resolve Univers Oligomenor Oligomenor d it y of sunshine sunshine [place] Physici ans History of History of Problem Resolve Univers Onychomyco Onychomyco d it y of sis of sis of [place] toenail toenail Physici ans History of History of Problem Resolve Univers Pain, Pain, d ity of joint, joint, [place] ankle and ankle and Phys ici foot foot ans History of History of Problem Resolve Univers Pain, Pain, d ity of joint, joint, [place] shoulder shoulder Physic i ans History of History of Problem Resolve Univers Suprapubic Suprapubic d it y of pain pain [place] Physici ans History of History of Problem Resolve Univers Pre-operat Pre-operat d it y of mari mari [place] general general Physici physical physical ans examinatio examinatio n n Recurrent Recurrent Problem Active Uni vers UTI UTI ity of [place] Physici ans History of History of Problem Resolve Univers Sore Sore d ity of throat throat [place] Physici ans History of History of Problem Resolve Univers Subacute Subacute d ity of and and [place] chronic chronic Physici vaginitis vaginitis ans History of History of Problem Resolve Univers Urinary Urinary d ity of retention retention [place] Phys[place] ans History of History of Problem Resolve Univers UTI UTI d ity of symptoms symptoms [place] Physici ans History of History of Problem Resolve Univers Viral Viral d [place]y of intestinal intestinal [place] infection infection Phys ici ans History of History of Problem Resolve Univers Yeast Yeast d ity of infection infection [place] Normal Normal Problem Active Univers routine routine ity of physical physical [place] examinatio examinatio Ph ysici n n ans Esophageal Esophageal Problem Active U nivers reflux reflux ity of [place] Physici ans Other Other Problem Active Univers signs and signs and ity of symptoms symptoms [place] in breast in breast Phys ici ans Hypertroph Hypertroph Problem Active U nivers y of y of ity of breast breast [place] Physici ans Asthma Asthma Problem Active Univers ity of [place] Physici ans Auditory Auditory Problem Active Unive rs hallucinat hallucinat it y of ions ions [place] Physici ans Arterial Arterial Problem Active Unive rs insufficie insufficie it y of ncy ncy [place] Physici ans Scoliosis Scoliosis Problem Active Uni vers ity of [place] Physici ans Raynauds Raynauds Problem Active Unive rs phenomenon phenomenon it y of [place] Physici ans 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 [place] Physici ans Allergic Allergic Problem Active Unive rs rhinitis rhinitis ity of [place] Physici ans Flu Flu Problem Active Univers vaccine vaccine ity of need need [place] Physici ans Anxiety Anxiety Problem Active Univers ity of [place] Physici ans Erythromel Erythromel Problem Active U nivers algia algia ity of [place] Physici ans Essential Essential Problem Active Uni vers (primary) (primary) ity of hypertensi hypertensi [place] Physici ans Heart Heart Problem Active Univers block block ity of [place] Physici ans Hyperlipid Hyperlipid Problem Active U nivers emia emia ity of [place] Physici ans Psychosis Psychosis Problem Active Uni vers ity of [place] Physic ans Depression Depression Problem Active U nivers ity of [place] Physic ans Right Right Problem Active Univers ankle ankle ity of swelling swelling [place] Physici ans Mild Mild Problem Active Univers intellectu intellectu it y of al al [place] disability disability Ph ysici ans Tachycardi Tachycardi Problem Active U nivers a a ity of [place] Physici ans Pruritus Pruritus Problem Active Unive rs of vagina of vagina ity of [place] Physici ans Irregular Irregular Problem Active Uni vers menstruati menstruati it y of on on [place] Physici ans Schizoaffe Schizoaffe Problem Active U nivers ctive ctive ity of disorder, disorder, [place] depressive depressive Ph ysici type type ans Paroxysmal Paroxysmal Problem Active U nivers supraventr supraventr it y of icular icular [place] tachycardi tachycardi Ph ysici a a ans Palpitatio Palpitatio Problem Active U nivers ns ns ity of [place] Physici ans Acute Acute Problem Active Univers otitis otitis ity of media media [place] Physici ans Heavy Heavy Problem Active Univers menses menses ity of [place] Physici ans Iron Iron Problem Active Univers deficiency deficiency it y of anemia due anemia due [place] to chronic to chronic Ph ysici blood loss blood loss an s Postoperat Postoperat Problem Active U nivers mari visit mari visit ity of [place] Physici ans Oligomenor Problem Active 2013-06-20 M emoria sunshine 16:01:13 l [place] Oligomenor sunshine Active 03/28/201 4 [facility] Scoliosis Problem Active 2013-06-20 Me moria 16:01:13 l [place] Scoliosis Active 4 [facility] Nonpuerper Problem Active 2013-06-20 M emoria al 16:01:13 l Galactorrh Jamie n ea Of The Nonpuerper Left al Breast Galactorrh ea Of The Left Breast Active 4 [facility] Hypertroph Problem Active 2013-06-20 M emoria y Of Left 16:01:13 l Breast [place] Hypertroph y Of Left Breast Active 4 [facility] Milky Problem Active 2013-06-20 Memor ia Nipple 16:01:13 l Discharge Milky Jamie n Bilateral Nipple Discharge Bilateral Active 4 [facility] Atypical Problem Active 2013-06-20 Mem oria Face Pain 16:01:13 l Atypical Jamie n Face Pain Active 4 [facility] Diarrhea Problem Active 2013-06-20 Mem oria (Symptom) 16:01:13 l Diarrhea Jamie n (Symptom) Active 4 [facility] Joint Problem Active 2013-06-20 Memor ia Pain, 16:01:13 l Localized Joint Jamie n In The Hip Pain, Localized In The Hip Active 06/20/2013 [facility] Headache Problem Active 2013-06-20 Mem oria 16:01:13 l Headache Jamie n Active 06/20/2013 [facility] (Lower) Problem Active 2013-06-20 Phuc grace Leg 16:01:13 l Localized (Lower) Herm madi Swelling Leg Bilateral Localized Swelling Bilateral Active 4 , non- pitting [facility] Sore Problem Active 2013-06-20 Memor ia Throat 16:01:13 l Sore [place] Throat Active 4 [facility] Foot Pain Problem Active 2013-06-20 Me moria (Soft 16:01:13 l Tissue) Foot [place] Pain (Soft Tissue) Active 4 [facility] Viral Problem Active 2013-06-20 Memor ia Gastroente 16:01:13 l ritis Viral [place] Gastroente ritis Active 4 [facility] Abdomen Problem Active 2013-06-20 Phuc grace Tenderness 16:01:13 l Direct Abdomen [place] Suprapubic Tenderness Direct Suprapubic Active 06/20/2013 [facility] Onychomyco Problem Active 2013-06-20 M emoria sis Of The 16:01:13 l Toenails [place] Onychomyco sis Of The Toenails Active 4 [facility] Cyst On Problem Active 2013-06-20 Phuc grace The Right 16:01:13 l Ovary Cyst On [place] The Right Ovary Active 4 [facility] Nausea Problem Active 2013-06-20 Memor ia (Symptom) 16:01:13 l Nausea [place] (Symptom) Active 4 [facility] Acute Problem Active 2013-06-20 Memor ia Sinusitis 16:01:13 l Acute [place] Sinusitis Active 4 [facility] Rectal Problem Active 2013-06-20 Memor ia Pain 16:01:13 l Rectal [place] Pain Active 4 [facility] Fatigue Problem Active 2013-06-20 Phuc grace 16:01:13 l Fatigue [place] Active 4 [facility] Allergic Problem Active 2013-06-20 Mem oria Rhinitis 16:01:13 l Allergic Jamie n Rhinitis Active 4 [facility] Asthma Problem Active 2013-06-20 Memor ia 16:01:13 l Asthma [place] Active 4 [facility] Heart Problem Active 2013-06-20 Memor ia Block 16:01:13 l Heart [place] Block Active 4 [facility] Hyperlipid Problem Active 2013-06-20 M emoria emia 16:01:13 l [place] Hyperlipid emia Active 4 [facility] Joint Problem Active 2013-06-20 Memor ia Pain, 16:01:13 l Localized Joint Jamie n In The Pain, Shoulder Localized In The Shoulder Active 4 [facility] Urinary Problem Active 2013-06-20 Phuc grace Tract 16:01:13 l Infection Urinary Herm madi Tract Infection Active 4 [facility] Vaginal Problem Active 2013-06-20 Phuc grace Candidiasi 16:01:13 l s Vaginal [place] Candidiasi s Active 06/20/2013 [facility] Arterial Problem Active 2013-06-20 Mem oria Insufficie 16:01:13 l ncy Arterial Jamie n Insufficie ncy Active 4 [facility] Cerebral Problem Active 2013-06-20 Mem oria Palsy 16:01:13 l Cerebral Jamie n Palsy Active 4 [facility] Esophageal Problem Active 2013-06-20 M emoria Reflux 16:01:13 l [place] Esophageal Reflux Active 4 [facility] Ankle Problem Active 2013-06-20 Memor ia Joint Pain 16:01:13 l Ankle [place] Joint Pain Active 06/20/2013 [facility] Erythromel Problem Active 2013-06-20 M emoria algia 16:01:13 l [place] Erythromel algia Active 4 [facility] Hypertensi Problem Active 2013-06-20 M emoria on 16:01:13 l [place] Hypertensi on Active 06/20/2013 [facility] Paroxysmal Problem Active 2013-06-20 M emoria Supraventr 16:01:13 l icular [place] Tachycardi Paroxysmal a Supraventr icular Tachycardi a Active 06/20/2013 [facility] Abdominal Problem Active 2013-06-20 Me moria Pain In 16:01:13 l The Right [place] Lower Abdominal Belly Pain In (RLQ) The Right Lower Belly (RLQ) Active 4 [facility] Mild Problem Active 2013-06-20 Memor ia Intellectu 16:01:13 l al Mild [place] Disabiliti Intellectu es al Disabiliti es Active 06/20/2013 [facility] Dysmenorrh Problem Active 2013-06-20 M emoria ea 16:01:13 l [place] Dysmenorrh ea Active 06/20/2013 [facility] Bartholin Problem Active 2013-06-20 Me moria Gland Cyst 16:01:13 l [place] Bartholin Gland Cyst Active 06/20/2013 [facility] Bacterial Problem Active 2013-06-20 Me moria Vaginosis 16:01:13 l [place] Bacterial Vaginosis Active 4 [facility] Pelvic Problem Active 2013-06-20 Memor ia Pain 16:01:13 l Pelvic [place] Pain Active 4 [facility] Gynecologi Problem Active 2013-06-20 M emoria c Services 16:01:13 l Intrauteri Jamie n ne Device Gynecologi (IUD) c Services Checking Intrauteri ne Device (IUD) Checking Active 4 [facility] Raynaud's Problem Active 2013-06-20 Me moria Phenomenon 16:01:13 dorina Blanc Raynaud's Phenomenon Active 06/20/2013 [facility] Allergies, Adverse Reactions, Alerts Allergy Allergy Status Severity Reaction(s) Onset Inactive Treating Comm ents Source Name Type Date Date Clinician Biaxin Allergy Active Univers TABS to drug ity of (finding [place] ) Physici ans Ceclor Allergy Active Univers CAPS to drug ity of (finding [place] ) Physici ans Cipro Allergy Inactiv Univers TABS to drug e ity of (finding [place] ) Physici ans Demerol Allergy Active Univers TABS to drug ity of (finding [place] ) Physici ans Dilaudid Allergy Active Univers TABS to drug ity of (finding [place] ) Physici ans Levaquin Allergy Active Univers TABS to drug ity of (finding [place] ) Physici ans Morphine Allergy Active Univers Derivati to drug ity of ves (finding [place] ) Physici ans NSAIDs Allergy Active Univers to drug ity of (finding [place] ) Physici ans Penicill Allergy Active Univers ins to drug ity of (finding [place] ) Physici ans Reglan Allergy Active Univers to drug ity of (finding [place] ) Physici ans Diflucan Allergy Active Univers TABS to drug ity of (finding [place] ) Physici ans Ceclor Ceclor Active Memoria CAPS CAPS l [place] Penicill Penicill Active Memori a ins ins l [place] Biaxin Biaxin Active Memoria TABS TABS l [place] Morphine Morphine Active Memori a Derivati Derivati l ves ves [place] NSAIDs NSAIDs Active Memoria l [place] Cipro Cipro Active Memoria TABS TABS l [place] Levaquin Levaquin Active Memori a TABS TABS l [place] Demerol Demerol Active Memoria TABS TABS l [place] Dilaudid Dilaudid Active Memori a TABS TABS l [place] Family History Family Member Diagnosis Comments Start Date Stop Date Source Unknown Family Family history of Family History University of Member Hypertension [place] [facility] Unknown Family Family History 2011-11-07 2011-11-07 Memori al Member 14:45:32 14:45:32 [place] Grandmother Family history of Univer sity of rheumatoid [place] arthritis Physicians Mother Family history of Univers ity of hypertension [place] [facility] Social History Social Habit Start Date Stop Date Quantity Comments Source Social History 2013-06-20 2013-06-20 Jimmy wen 16:01:13 16:01:13 Smoking Status Start Date Stop Date Source Never smoked tobacco (finding) [facility] Medications Ordered Filled Start Stop Current Ordering Indication Dosage Frequency Signature Comments Components Source Medication Medication Date Date Medication? Clinician (SIG) Name Name Ayleen Keane Corlanor 5 Yes BARBARA 1/2 tablet Univers MG Oral MG Oral 4-03 NAHUM PO BID ity of Tablet Tablet 00:00: M.D. Physici ans Azithromyci Azithromyci Yes BARBARA 1 QD TAKE 1 Univers n 500 MG n 500 MG 4-03 NAHUM TABLET i ty of Oral Tablet Oral Tablet 00:00: M.D. DAILY. Physici ans Fluticasone Fluticasone Yes BARBARA QD USE 2 Univers Propionate Propionate 4-03 NAHUM SPRAYS IN ity of 50 MCG/ACT 50 MCG/ACT 00:00: M.D. EACH [place] Nasal Nasal 00 NOSTRIL Physici Suspension Suspension ONCE DAILY ans Nystatin-Tr Nystatin-Tr 2018-03 Yes GAZALA Q0.5D APPLY Univers iamcinolone iamcinolone 0-08 CAPELLAN SPARINGLY ity of 628459-5.1 [id number] 00:00: M.D. [place] UNIT/GM-% UNIT/GM-% 00 AFFECTED P hysici External External AREA(S) ans Cream Cream TWICE DAILY FLUoxetine FLUoxetine 2014-03 Yes SHAOJIE 1 QD TAKE 1 Univers HCl - 20 MG HCl - 20 MG 1-10 VARGAS M.D. CAPSULE BY ity of Oral Oral 00:00: MOUTH [place] Capsule Capsule 00 DAILY Physici ans Abilify 10 Abilify 10 2014-03 Yes SHAOJIE TAKE 1/2 Univers MG Oral MG Oral 1-10 VARGAS M.D. TAB THREE ity of Tablet Tablet 00:00: TIMES [place] 00 DAILY AND Physici 1/2 TAB AT ans BEDTIME NEEDED AmLODIPine Yes ; Start Phuc grace Besylate 05-23 Date: l 2.5 MG Oral 06:00: 05/23/2013 [place] Tablet 00 ; End Date: (Active) Promethazin Yes ; Start Mem oria e HCl 12.5 1-10 Date: l MG Oral 06:00: 04/04/2013 Herm madi Tablet 00 (Active) Cyclobenzap 2013-0 Yes ; Start Mem oria rine HCl 5 1-10 Date: l MG Oral 06:00: 04/04/2013 Herm madi Tablet 00 (Active) RABEprazole 2013-0 Yes ; Start Mem oria Sodium 20 1-07 Date: l MG Oral 06:00: 04/01/2013 Herm madi Tablet 00 (Active) Delayed Release MetroNIDAZO 2012-0 Yes ; Start Mem oria LE 500 MG 6-16 Date: l Oral Tablet 05:00: 09/08/2012 [place] 00 ; End Date: (Active) Hydrocodone 2012- Yes ; Start Mem oria -Acetaminop 08-15 Date: l hen 5-325 05:00: 08/15/2012 He rmann MG Oral 00 (Active) Tablet Flovent HFA 2012- Yes ; Start Mem oria 220 MCG/ACT 08-15 Date: l Inhalation 05:00: 08/15/2012 H ermann Aerosol 00 (Active) Metamucil Yes (Active) Mem oria POWD 1-11 l 22:19: [place] 09 Cranberry Yes (Active) Mem oria CAPS 1-11 l 22:19: [place] 09 Lidocaine 2011-03 Yes ; Start Memor ia Viscous 2 % 0-05 Date: l Mouth/Throa 05:00: 12/29/2011 [place] t Solution 00 ; End Date: (Active) Azithromyci 2011-03 Yes ; Start Mem oria n 250 MG 0-05 Date: l Oral Tablet 05:00: 12/29/2011 [place] 00 ; End Date: (Active) Cranberry Yes (Active) Mem oria CAPS 8-21 l 12:15: [place] 55 Albuterol 2011- Yes ; Start Memor ia Sulfate 8-14 Date: l (2.5 05:00: 11/07/2011 [place] MG/3ML) 00 (Active) 0.083% Inhalation Nebulizatio n Solution ProAir HFA 0 Yes ; Start Phuc grace 108 (90 8-14 Date: l Base) 05:00: 11/07/2011 Jamie n MCG/ACT 00 ; End Inhalation Date: Aerosol Solution (Active) Proventil Yes ; Start Memor ia HFA 108 (90 8-14 Date: l Base) 05:00: 11/07/2011 Jamie n MCG/ACT 00 (Active) Inhalation Aerosol Solution Albuterol Albuterol Yes BARBARA USE 1 VIAL Univers Sulfate Sulfate 8-14 NAHUM VIA ity o f (2.5 (2.5 00:00: M.D. NEBULIZER [place] MG/3ML) MG/3ML) 00 EVERY 4 Physic i 0.083% 0.083% HOURS ans Inhalation Inhalation NEEDED Nebulizatio Nebulizatio n Solution n Solution Clopidogrel Yes ; Start Mem oria Bisulfate 6-28 Date: l 75 MG Oral 05:00: 09/21/2011 H ermann Tablet 00 ; End Date: (Active) Clopidogrel Clopidogrel Yes BARBARA TAKE 1 Univers Bisulfate Bisulfate 6-28 NAHUM TABLET BY ity of 75 MG Oral 75 MG Oral 00:00: M.D. MOUTH [place] Tablet Tablet 00 DAILY Physici ans TraMADol Yes ; Start Memori a HCl 50 MG 12-03 Date: l Oral Tablet 05:00: 12/03/2009 [place] 00 (Active) Montelukast Yes ; Start Mem oria Sodium 10 11-24 Date: l MG Oral 05:00: 11/24/2009 Herm madi Tablet 00 (Active) Aciphex 20 Yes ; Start Phuc grace MG Oral -14 Date: l Tablet 05:00: 07/07/2008 Anneliese nn Delayed 00 (Active) Release Plavix TABS Plavix TABS Yes U nivers ity of [place] Physici ans Immunizations Ordered Immunization Filled Immunization Date Status Commen ts Source Name Name Fluzone Quadrivalent 2018-12-20 Completed Univ ersity of 0.5 [place] Intramuscular 11:49:00 [place] [facility] Suspension Prefilled Syringe Fluzone Quadrivalent 2017-11-30 Completed Univ ersity of 0.5 [place] Intramuscular 13:18:00 [place] [facility] Suspension Fluzone Quadrivalent 2017-01-02 Completed Univ ersity of 0.5 ML Intramuscular 11:16:00 [place] [facility] Suspension Fluzone Quadrivalent 2016-01-13 Completed Univ ersity of 0.5 ML Intramuscular 14:22:00 [place] Suspension Influenza 2010-12-19 Completed University 14:37:00 [place] Physicia ns Influenza 2009-12-03 Completed University of 17:39:00 [place] Physicia ns Influenza 2007-12-31 Completed University of 00:00:00 [place] Phys[facility] ns Influenza 2007-02-25 Completed University of 00:00:00 [place] Phys[facility] ns Td 2007-02-25 Completed University of 00:00:00 [place] Physicia ns Vital Signs Vital Name Observation Time Observation Value Comments Source Systolic blood 2019-08-04 100 mm[Hg] Location: [facility]; [facility] 11:18:00 Position: [place] Physician s Sitting Diastolic blood 2019-08-04 62 mm[Hg] Location: [facility] 11:18:00 Position: [place] Physician s Sitting Body height 2019-08-04 68 [in_us] University of 11:18:00 [place] Physician s Weight 2019-08-04 201.5 [lb_av] University of 11:18:00 [place] [facility] s Body mass index 2019-08-04 30.64 kg/m2 University o f (BMI) [Ratio] 11:18:00 [place] Physicia ns Body temperature 2019-08-04 97 [degF] Method: Oral University of 11:18:00 [place] [facility] s Heart Rate 2019-08-04 77 /min University of 11:18:00 [place] [facility] s Systolic blood 2019-07-23 101 mm[Hg] Location: [facility] 10:43:00 Position: [place] Physician s Sitting Diastolic blood 2019-07-23 66 mm[Hg] Location: [facility] 10:43:00 Position: [place] Physician s Sitting Body height 2019-07-23 68 [in_us] University of 10:43:00 [place] Physician s Weight 2019-07-23 190 [lb_av] University of 10:43:00 [place] Physician s Body mass index 2019-07-23 28.89 kg/m2 University o f (BMI) [Ratio] 10:43:00 [place] Physicia ns Heart Rate 2019-07-23 69 /min University of 10:43:00 [place] Physician s Body temperature 2019-07-23 97.1 [degF] University of 10:43:00 [place] [facility] s Systolic blood 2019-05-02 112 mm[Hg] Location: [facility]; [facility] 15:13:00 Position: [place] Physician s Sitting Diastolic blood 2019-05-02 76 mm[Hg] Location: [facility]; [facility] 15:13:00 Position: [place] Physician s Sitting Body height 2019-05-02 68 [in_us] University 15:13:00 [place] Physician s Weight 2019-05-02 190 [lb_av] University of 15:13:00 [place] [facility]ician s Body mass index 2019-05-02 28.89 kg/m2 University o f (BMI) [Ratio] 15:13:00 [place] Physicia ns Heart Rate 2019-05-02 79 /min University of 15:13:00 [place] Physician s BP Systolic 2019-04-15 122 mm[Hg] Location: [facility]; [facility] 16:33:00 Position: [place] Physician s Sitting BP Diastolic 2019-04-15 78 mm[Hg] Location: [facility]; [facility] 16:33:00 Position: [place] Physician s Sitting Height 2019-04-15 68 [in_us] University 16:33:00 [place] [facility]ician s Weight 2019-04-15 209 [lb_av] University 16:33:00 [place] [facility] s Body Mass Index 2019-04-15 31.78 kg/m2 University o f Calculated 16:33:00 [place] [facility] BP Systolic 2018-12-31 113 mm[Hg] Location: [place]; [facility] 16:04:00 Position: [place] Physician s Sitting BP Diastolic 2018-12-31 79 mm[Hg] Location: [place]; [facility] 16:04:00 Position: [place] Physician s Sitting Height 2018-12-31 68 [in_us] University 16:04:00 [place] [facility] Weight 2018-12-31 204 [lb_av] University 16:04:00 [place] [facility] Body Mass Index 2018-12-31 31.02 kg/m2 University o f Calculated 16:04:00 [place] [facility] s Temperature 2018-12-31 97.9 [degF] Method: Oral University of 16:04:00 [place] [facility] Heart Rate 2018-12-31 79 /min University 16:04:00 [place] [facility] BP Systolic 2018-12-20 136 mm[Hg] Location: [place]; [facility] 11:28:00 Position: [place] Physician s Sitting BP Diastolic 2018-12-20 82 mm[Hg] Location: [place]; [facility] 11:28:00 Position: [place] Physician s Sitting Height 2018-12-20 68 [in_us] University of 11:28:00 [place] [facility] s Weight 2018-12-20 208.125 [lb_av] University o f 11:28:00 [place] [facility] s Body Mass Index 2018-12-20 31.65 kg/m2 University o f Calculated 11:28:00 [place] Phys[facility] s Temperature 2018-12-20 97.5 [degF] Method: Oral University of 11::00 [place] [facility] Heart Rate 2018-12-20 72 /min Location: L [place] of 11::00 Brachial [place] Physician s Artery; Respiration Rate 2018-12-20 16 /min Quality: Normal Universi ty of 11:28:00 [place] [facility] s BP Systolic 2018-11-27 104 mm[Hg] [facility] 10:59:00 Position: [place] Physician s Sitting BP Diastolic 2018-11-27 67 mm[Hg] [facility] 10:59:00 Position: [place] Physician s Sitting Height 2018-11-27 68 [in_us] University of 10:59:00 [place] Physician s Weight 2018-11-27 204 [lb_av] University of 10:59:00 [place] [facility]ician s Body Mass Index 2018-11-27 31.02 kg/m2 University o Calculated 10:59:00 [place] [facility] s Temperature 2018-11-27 98.2 [degF] Method: [facility] of 10:59:00 [place] Phys[facility] s Heart Rate 2018-11-27 76 /min Location: R [facility] 10:59:00 Brachial [place] [facility]ician s Artery; Respiration Rate 2018-11-27 18 /min Quality: Normal Universi ty of 10:59:00 [place] Physician s O2 SAT 2018-11-27 99 % Source: [facility] 10:59:00 [place] Phys[facility] s BP Systolic 2018-11-26 105 mm[Hg] Location: [facility]; [facility] 11::00 Position: [place] Physician s Supine BP Diastolic 2018-11-26 74 mm[Hg] Location: [facility]; [facility] 11::00 Position: [place] Physician s Supine Heart Rate 2018-11-26 75 /min Location: [place] 11:27:00 Brachial [place] [facility]ician s Artery; Quality: Normal BP Systolic 2018-11-26 115 mm[Hg] Location: [facility]; [facility] ::00 Position: [place] Physician s Standing BP Diastolic 2018-11-26 78 mm[Hg] Location: [facility]; [facility] :25:00 Position: [place] Physician s Standing Heart Rate 2018-11-26 123 /min Location: L [facility] 11:25:00 Brachial [place] [facility]ician s Artery; Quality: Normal BP Systolic 2018-11-26 91 mm[Hg] Location: [facility]; [place] of :19:00 Position: [place] Physician s Sitting BP Diastolic 2018-11-26 70 mm[Hg] Location: RU; [place] of ::00 Position: [place] Physician s Sitting Heart Rate 2018-11-26 84 /min Location: R [facility] 11:19:00 Brachial [place] Physician s Artery; Quality: Normal Heart Rate 2018-11-26 84 /min Location: R [facility] 11:18:00 Brachial [place] Physician s Artery; Quality: Normal BP Systolic 2018-11-26 106 mm[Hg] Location: [facility]; [facility] :57:00 Position: [place] Physician s Sitting BP Diastolic 2018-11-26 72 mm[Hg] Location: [facility] :57:00 Position: [place] Physician s Sitting Height 2018-11-26 68 [in_us] University of 10:57:00 [place] [facility] Weight 2018-11-26 204 [lb_av] University of 10:57:00 [place] [facility]ician s Body Mass Index 2018-11-26 31.02 kg/m2 University o f Calculated 10:57:00 [place] Physician s Temperature 2018-11-26 98.7 [degF] Method: Oral [facility] 10:57:00 [place] [facility] Heart Rate 2018-11-26 78 /min Location: R [facility] 10:57:00 Radial; [place] Physician s Quality: Normal Respiration Rate 2018-11-26 16 /min Quality: Normal Universi ty of 10:57:00 [place] [facility]ician s BP Systolic 2018-04-23 107 mm[Hg] Location: [facility]; [place] of 12:50:00 Position: [place] Physician s Sitting BP Diastolic 2018-04-23 73 mm[Hg] Location: [facility]; [facility] 12:50:00 Position: [place] Physician s Sitting Weight 2018-04-23 208.25 [lb_av] University of 12:50:00 [place] [facility] Body Mass Index 2018-04-23 31.66 kg/m2 University o f Calculated 12:50:00 [place] [facility] s Temperature 2018-04-23 97.7 [degF] Method: Oral [place] of 12:50:00 [place] [facility] Heart Rate 2018-04-23 65 /min Location: [facility] of 12:50:00 Brachial [place] Physician s Artery; Quality: Normal Respiration Rate 2018-04-23 18 /min Quality: Normal Universi ty of 12:50:00 [place] Physician s O2 SAT 2018-04-23 99 % Source: [facility] of 12:50:00 [place] Physician s BP Systolic 2017-11-30 115 mm[Hg] Location: [place]; [place] of 13:16:00 Position: [place] Physician s Sitting BP Diastolic 2017-11-30 78 mm[Hg] Location: [place]; [place] of 13:16:00 Position: [place] Physician s Sitting Height 2017-11-30 68 [in_us] University of 13:16:00 [place] [facility] Weight 2017-11-30 203 [lb_av] University of 13:16:00 [place] [facility]ician s Body Mass Index 2017-11-30 30.87 kg/m2 University o f Calculated 13:16:00 [place] Phys[facility] s Temperature 2017-11-30 98.2 [degF] Method: [facility] of 13:16:00 [place] Physician s Heart Rate 2017-11-30 96 /min Location: [facility] of 13:16:00 Radial; [place] Physician s Quality: Normal Respiration Rate 2017-11-30 16 /min Quality: Normal Universi ty of 13:16:00 [place] Physician s BP Systolic 2017-08-30 113 mm[Hg] Location: [place]; [place] of 10:00:00 Position: [place] Physician s Sitting BP Diastolic 2017-08-30 78 mm[Hg] Location: [place]; [place] of 10:00:00 Position: [place] Physician s Sitting Height 2017-08-30 68 [in_us] University of 10:00:00 [place] [facility] Weight 2017-08-30 205 [lb_av] University of 10:00:00 [place] [facility] Body Mass Index 2017-08-30 31.17 kg/m2 University o f Calculated 10:00:00 [place] [facility] Temperature 2017-08-30 98.3 [degF] Method: [facility] of 10:00:00 [place] [facility] Heart Rate 2017-08-30 78 /min University of 10:00:00 [place] [facility] BP Systolic 2017-08-06 95 mm[Hg] Location: [place]; [facility] :24:00 Position: [place] Physician s Sitting BP Diastolic 2017-08-06 63 mm[Hg] Location: [place]; [facility] :24:00 Position: [place] Physician s Sitting Height 2017-08-06 68 [in_us] [facility] :24:00 [place] [facility] Body Mass Index 2017-08-06 31.52 kg/m2 University o f Calculated 13:24:00 [place] [facility] Weight 2017-08-06 207.3125 [lb_av] University of :24:00 [place] [facility] Temperature 2017-08-06 98 [degF] Method: [facility] :24:00 Temporal [place] [facility]ician s Heart Rate 2017-08-06 81 /min University of ::00 [place] Physician s Respiration Rate 2017-08-06 16 /min Quality: Normal Universi ty of 13:24:00 [place] Physician s BP Systolic 2017-08-06 107 mm[Hg] Location: [place]; [facility] :29:00 Position: [place] Physician s Sitting BP Diastolic 2017-08-06 74 mm[Hg] Location: [place]; [facility] :29:00 Position: [place] Physician s Sitting Height 2017-08-06 68 [in_us] University of 10:29:00 [place] [facility] Body Mass Index 2017-08-06 31.47 kg/m2 University o f Calculated 10:29:00 [place] [facility] Weight 2017-08-06 207 [lb_av] University of :29:00 [place] [facility] Heart Rate 2017-08-06 69 /min Location: [place] [facility] :29:00 Radial; [place] Physician s Respiration Rate 2017-08-06 16 /min Quality: Normal Universi ty of 10:29:00 [place] Physician s O2 SAT 2017-08-06 99 % Source: [facility] 10:29:00 [place] [facility] BP Systolic 2017-07-27 110 mm[Hg] Location: [place]; [facility] 10:36:00 Position: [place] Physician s Sitting BP Diastolic 2017-07-27 78 mm[Hg] Location: [place]; [facility] 10:36:00 Position: [place] Physician s Sitting Height 2017-07-27 68 [in_us] University 10:36:00 [place] [facility] Body Mass Index 2017-07-27 31.54 kg/m2 University o f Calculated 10:36:00 [place] [facility] Weight 2017-07-27 207.4375 [lb_av] University 10:36:00 [place] [facility] Temperature 2017-07-27 98.5 [degF] Method: Oral University 10:36:00 [place] [facility] Heart Rate 2017-07-27 69 /min Location: [facility] 10:36:00 Brachial [place] Physician s Artery; Quality: Normal Respiration Rate 2017-07-27 16 /min Quality: Normal Universi ty of 10:36:00 [place] [facility] Procedures Procedure Date / Time Performing Clinician Source Performed . [facility] - PAP 2019-05-02 00:00:00 [facility] o [facility] [place] [facility] [QLH] CULTURE, URINE, 2019-05-02 00:00:00 [facility] [QL] URINALYSIS, COMPLETE 2019-05-02 00:00[facility] with Pelvis 2019-04-15 00:00:00 [facility] Transvaginal [id number] Physicians [QL] CULTURE, URINE, 2018-12-31 [facility] URINALYSIS, COMPLETE 2018-12-03 00:00:00 [facility] [[facility]] CULTURE, URINE, 2018-12-03 00:00:00 [facility] ROUTINE Physicians [N] 2D Echo complete, with 2018-11-26 00:00:00 U [facility] Doppler [id number] Physicians [QL] CMP W/EGFR 2018-04-23 00:00:00 [facility] Physicians [QL] LIPID PANEL 2018-04-23 00:00:00 [facility] Physicians [QL] TSH, 3RD GENERATION 2018-04-23 00:00:00 [facility] Physicians [QL] CBC (INCLUDES 2018-04-23 00:00:00 Universi ty [facility] DIFF/PLT) Physicians [QL] HEMOGLOBIN A1c 2018-04-23 00:00:00 Univers ity [facility] Physicians [QL] URINALYSIS, COMPLETE 2017-11-30 00:00:00 [facility] [QL] CULTURE, URINE, 2017-11-30 00:00:00 [facility] ROUTINE Physicians US Pelvis Transvaginal 2017-11-30 00:00:00 [facility] [id number] Physicians History of Appendectomy [facility] Physicians [facility] of Ooph[facility]omy [facility] Physicians Plan of Care Planned Activity Planned Date Details Comments Source Diagnostic Test 2018-12-17 [N] 2D Echo [facility] Pending 00:00:00 complete, with Physicians Doppler [id number] [code = [N] 2D Echo complete, with Doppler 54180] Future Scheduled Test 2012-09-09 Plan of Care [facility] [place] 14:02:29 [code = 94488-6] Future Scheduled Test 2012-09-09 Plan of Care [facility] [place] 01:46:25 [code = 47777-1] Future Scheduled Test 2012-09-06 Plan of Care [facility] [place] 22:39:47 [code = 18148-8] Future Scheduled Test 2012-04-16 [facility] [place] 17:31:01 [code = 01580-7] Future Scheduled Test 2011-11-14 Plan [facility] Care [facility] [place] 12:15:55 [code = 17088-1] Future Scheduled Test 2011-11-07 [facility] [place] 15:15:49 [code = 22083-9] Future Scheduled Test 2011-11-07 [facility] [place] 14:45:32 [code = 48671-1] Future Appointment 2019-11-18 Milena JOSUE [facility] 11:00:00 Selina VARGAS Future Appointment 2019-11-13 Milena JOSUE [facility] 13:00:00 Selina VARGAS Encounters Start End Encounter Admission Attending Care Care Encounter Source Date/Time Date/Time Type Type Clinicians Facility Department ID 2019-08-12 2019-08-12 AILIN Murguia [facility] [id number] Univers 11:30:00 11:30:00 t; YAN BEEBE it y [place], [place] Donna BEEBE NP ans 2019-08-04 2019-08-04 AILIN Begum [facility] [id number] Univers 11:00:00 11:00:00 t; Milena ALEGRE [place] [facility] Milena ALEGRE Medical Physi ci [place] ans 2019-07-24 2019-07-24 Appointmen LOY, AILIN [facility] [id number] Univers 13:00:00 13:00:00 t; jono COLLAZO M.D. [place] Donna COLLAZO M.D. [facility] 2019-07-24 2019-07-23 [facility] [id number] [facility] 13:05:00 12:00:00 2019-07-23 2019-07-23 Appointmen AILIN MULLER Obstetrics [id number] Univers 10:30:00 10:30:00 t; Tahir SCHMIDT M.D. Gynecology [place] SCHMIDT [facility] Physi ci Milena [facility] ans 2019-07-16 2019-07-16 Appointmen RAFAEL, [facility] UTP [id number] Univers 15:30:00 15:30:00 t; YAN BEEBE y of [place], [place] Donna BEEBE HOISTING LABORER ans 2019-06-27 2019-06-27 Appointmen NAHUM, [facility] Family [id number] Univers 13:00:00 13:00:00 t; Milena JIMENEZ [facility] - ity [facility] Kenneth JIMENEZ M.D. [place] ans 2019-06-17 2019-06-17 Appointmen AILIN VARGAS Multispecia [id number] Univers 12:00:00 12:00:00 t; JOSELO VARGAS lty - jono JOSUE M.D. Internation [place] ga M.D. [facility] Phys [facility] ans 2019-05-13 2019-05-13 Appointmen RAFAEL, [facility] UTP [id number] Univers 11:00:00 11:00:00 t; YAN BEBEE y of [place], [place] Donna BEEBE NP ans 2019-05-09 2019-05-09 Appointmen HUGO, AILIN [facility] [id number] Univers 10:45:00 10:45:00 t; ANABEL ARIAS M.D. ity Efraín LITTLE M.D. Physici ans 2019-05-02 2019-05-02 Appointmen CHUY [facility] Women's [id number] Univers 15:00:00 15:00:00 t; Blank IBARRA M.D. [facility] FRED Medical Donna MBud [facility] 2019-04-28 2019-04-28 Emergency E MHBL MHBL [id number] MHBL 12:36:00 12:36:00 2019-04-15 2019-04-15 Appointmen HOMER [facility] Women's [id number] Univers 15:40:00 15:40:00 t; Blank RAMIREZ - it y lele CORONEL M.D. [place] Elham RAMIREZ M.D. [facility] 2019-02-26 2019-02-26 Appointmen HUGO [facility] [id number] Univers 10:30:00 10:30:00 t; ANABEL ARIAS M.D. ity of HAJAR, [place] M.D. Physici ans 2018-12-31 2018-12-31 [facility] [id number] Univers 15:00:00 15:00:00 t; Blank PICHARDO M.D. [facility] Kenneth PICHARDO M.D. [facility] 2018-12-25 2018-12-25 Appointmen RAFAEL [facility] [id number] Univers 13:30:00 13:30:00 t; YAN BEEBE y of [place], [place] Jordi BEEBEi HOISTING LABORER ans 2018-12-20 2018-12-20 Appointmen MED [facility] Centralized [id number] Univers 11:30:00 11:30:00 t; MED PROVIDER, Case ity of PROVIDER, TCM Management Lobo as TCM Physici ans 2018-12-08 2018-12-[address] [facility] [id number] [facility] 20:00:00 11:53:00 2018-11-27 2018-11-27 Appointmen PAO [facility] [id number] Univers 13:45:00 13:45:00 t; NATALIE CEDENO ity of SAUMYA, M.D. [place] M.D. Physici ans 2018-11-27 2018-11-27 AppointAILIN Edwards Multispecia [id number] Univers 10:30:00 10:30:00 t; JOSELO VARGAS lty - ity o f SHAOJIE, M.D. Internation Lobo as Milena [facility] ans 2018-11-26 2018-11-26 Appointmen AILIN LINDSEY Non-Invasiv [id number] Univers 13:30:00 13:30:00 t; CÉSAR NON-INVASIV e - [place] ity NON-INVASI E Medical [facility] Physici ans 2018-11-26 2018-11-26 AppointAILIN Hopper Family [id number] Univers 10:30:00 10:30:00 t; Milena JIMENEZ Medicine - ity [facility] BARBARA [facility] Physic Holly.DSukhjinder [facility] 2018-11-01 2018-10-31 Inpatient E [facility] CAR [id number] [facility] 10:09:00 20:37:00 2018-09-09 2018-09-09 AppointAILIN Robertson [id number] Univers 09:20:00 09:20:00 t; JORDI WONG, it y of Milena BACON [place] Mielna Physici [facility] 2018-04-23 2018-04-23 AILIN Feliz [facility] [id number] Univers 13:00:00 13:00:00 t; JOSELO VARGAS, Health and it y lele JOSUE M.D. [facility] Efraín [facility] 2018-03-06 2018-03-06 AppointAILIN Edwards UTP [id number] Univers 12:00:00 12:00:00 t; JOSELO VARGAS ity o f SHAOJIE, M.D. [place] Milena [facility] 2018-02-19 2018-02-19 AILIN Feliz [id number] Univers 11:30:00 11:30:00 t; JOSELO VARGAS ity o f SHAOJIE, M.D. [place] Milena [facility] 2018-02-19 2018-02-19 AILIN Feliz [id number] Univers 11:30:00 11:30:00 t; JOSELO VARGAS ity o f SHAOJIE, M.D. [place] M.Ravi Physici ans 2017-12-26 2017-12-26 Appointmen KARINE SCHMIDT UTP UTP [id number] Univers 14:30:00 14:30:00 t; Milena SCHMIDT M.D. [place] Physici ans 2017-11-30 2017-11-30 Appointmen NAHUM, [facility] Family [id number] Univers 13:00:00 13:00:00 t; Milena JIMENEZ Medicine i ty of [place], [place] Donna JIMENEZ M.D. ans 2017-11-21 2017-11-21 Appointmen AILIN VARGAS Psychiatry [id number] Univers 11:00:00 11:00:00 t; JOSELO VARGAS ity o f SHAOJIE, M.D. [place] M.D. Physici ans 2017-11-06 2017-11-06 Appointmen AILIN VARGAS [facility] [id number] Univers 12:00:00 12:00:00 t; JOSELO VARGAS ity o f SHAOJIE, M.D. [place] M.D. Physici ans 2017-08-30 2017-08-30 AppointAILIN Resendiz Womens [id number] Univers 10:00:00 10:00:00 t; MARINOHelen [facility] Wiley M.D. [place] Donna PICHARDO M.D. ans 2017-08-06 2017-08-06 Appointmen AILIN VARGAS Psychiatry [id number] Univers 14:00:00 14:00:00 t; JOSELO VARGAS ity o f SHAOJIE, M.D. [place] M.D. Physici ans 2017-08-06 2017-08-06 Appointmen AILIN WONG Cardiology [id number] Univers 10:40:00 10:40:00 t; JORDI WONG it y of CATALIN, M.D. [place] M.D. Physici ans 2017-07-27 2017-07-27 Appointmen NAHUM, [facility] Family [id number] Univers 10:30:00 10:30:00 t; Milena JIMENEZ Medicine i ty of [place], [place] Donna JIMENEZ M.D. ans 2017-06-26 2017-06-26 Appointmen AILIN VARGAS UTP [id number] Univers 13:30:00 13:30:00 t; JOSELO VARGAS ity o f SHAOJIE, M.D. [facility].D. Physici ans 2017-04-24 2017-04-24 Appointmen AILIN VARGAS UTP [id number] Univers 12:00:00 12:00:00 t; JOSELO VARGAS ity o f SHAOJIE, M.D. [facility].D. Physici ans 2017-01-11 2017-01-11 Appointmen NAHUM, AILIN UTP [id number] Univers 13:45:00 13:45:00 t; Milena JIMENEZ it y of [place], [place] Donna JIMENEZ M.Ravi ans 2017-01-02 2017-01-02 Appointmen AILIN VARGAS UTP [id number] Univers 14:00:00 14:00:00 t; JOSELO VARGAS ity o f SHAOJIE, M.D. [facility].D. Physici ans 2017-01-02 2017-01-02 Appointmen DA, AILIN UTP [id number] Univers 10:30:00 10:30:00 t; HIRAL ROBERSON ity of HIRAL, P.A. [place] P.A. Physici ans 2016-10-03 2016-10-03 Appointmen NAHUM, UTP UTP [id number] Univers 11:00:00 11:00:00 t; Milena JIMENEZ it [place], [place] BARBARA Physicamber M.D. ans 2016-09-27 2016-09-27 Appointmen ALICIA, AIILN UTP [id number] Univers 13:00:00 13:00:00 t; JOSELO VARGAS ity o f SHAOJIE, M.D. [place] Holly.DSukhjinder Physici ans 2016-09-20 2016-09-20 Appointmen NAHUM, AILIN UTP [id number] Univers 11:00:00 11:00:00 t; Milena JIMENEZ it y of [place], [place] BARBARA Physicamber M.D. ans 2016-09-05 2016-09-05 Appointmen NAHUM, [facility] UTP [id number] Univers 14:00:00 14:00:00 t; Milena JIMENEZ y of [place], [place] Donna JIMENEZ M.D. ans 2016-07-28 2016-07-28 [facility] NAHUM, [facility] UTP [id number] Univers 10:45:00 10:45:00 t; Milena JIMENEZ y of [place], [place] Donna JIMENEZ M.D. ans 2016-07-28 2016-07-28 [facility] ROXANA, [facility] [id number] Univers 09:30:00 09:30:00 t; BLANCA SCHMIDT it y of Milena RIOS M.D. Physici ans 2016-06-28 2016-06-28 [facility] VOWELS, [facility] [id number] Univers 10:00:00 10:00:00 t; VOWELS, amber MABRY M.D. [place] M.D. Physici ans 2016-06-16 2016-06-16 [facility] [id number] Univers 14:30:00 14:30:00 t; Milena BRADYENEfraín M.D. Physi ci ans 2016-01-13 2016-01-13 [facility] [id number] Univers 15:00:00 15:00:00 t; Titus calvillo ity of [place] M.D. [place] hen, Rolf, Physi ci M.DSukhjinder ans 2015-11-16 2015-11-16 [facility] [id number] Univers 10:30:00 10:30:00 t; Titus calvillo ity of [place] M.D. [place] hen, Rolf, Physi ci M.DSukhjinedr ans 2015-09-29 2015-09-29 [facility] MUNIRA [facility] UTP [id number] Univers 12:00:00 12:00:00 t; , jono QUIROZ M.D., JAMES, Physic i M.D. ans 2015-07-26 2015-07-26 [facility] AILIN NESBITT [id number] Univers 13:30:00 13:30:00 t; Alta GUSMAN M.D. [place] Donna GUSMAN M.D. [facility] 2013-06-20 2013-06-20 Outpatient MHIE MHIE [id number] 11:01:14 11:01:13 2013-05-26 2013-05-26 Outpatient MHIE MHIE [id number] 17:17:23 17:17:20 2013-05-23 2013-05-23 Outpatient MHIE MHIE [id number] 14:45:54 14:45:52 2013-05-21 2013-05-21 Outpatient MHIE MHIE [id number] 11:07:12 11:07:09 2013-04-14 2013-04-14 Outpatient MHIE MHIE [id number] 07:16:36 07:16:33 2013-04-04 2013-04-04 Outpatient MHIE MHIE [id number] 12:01:35 12:01:33 2013-02-19 2013-02-19 Outpatient MHIE MHIE [id number] 13:31:31 13:31:29 2013-02-17 2013-02-17 Outpatient MHIE MHIE [id number] 10:17:10 10:17:08 2012-11-29 2012-11-29 Outpatient MHIE MHIE [id number] 11:16:01 11:15:59 2012-10-17 2012-10-17 Outpatient MHIE MHIE [id number] 17:07:11 17:06:50 2012-09-10 2012-09-10 Outpatient MHIE MHIE [id number] 08:17:46 08:17:25 2012-09-09 2012-09-09 Outpatient MHIE MHIE [id number] 09:02:54 09:02:29 2012-09-08 2012-09-08 Outpatient MHIE MHIE [id number] 20:46:45 20:46:25 2012-09-06 2012-09-06 Outpatient MHIE MHIE [id number] 17:40:08 17:39:47 2012-08-15 2012-08-15 Outpatient MHIE MHIE [id number] 17:54:05 17:53:43 2012-07-12 2012-07-12 Outpatient MHIE MHIE [id number] 08:08:37 08:08:17 2012-06-26 2012-06-26 Outpatient IE IE [id number] 08:36:23 08:36:02 2012-05-03 2012-05-03 Outpatient MHIE IE [id number] 08:49:16 08:48:58 2012-04-19 2012-04-19 Outpatient IE IE [id number] 13:33:31 13:33:12 2012-04-17 2012-04-17 Outpatient IE IE [id number] 11:34:55 11:34:36 2012-04-16 2012-04-16 Outpatient IE IE [id number] 11:31:20 11:31:01 2012-04-05 2012-04-05 Outpatient IE IE [id number] 16:19:26 16:19:09 2011-12-29 2011-12-29 Outpatient IE IE [id number] 16:16:00 16:15:58 2011-12-29 2011-12-29 Outpatient IE IE [id number] 15:30:33 15:30:31 2011-11-14 2011-11-14 Outpatient IE IE [id number] 07:16:11 07:15:55 2011-11-07 2011-11-07 Outpatient IE IE [id number] 10:15:51 10:15:49 2011-11-07 2011-11-07 Outpatient IE IE [id number] 09:45:34 09:45:32 Results Test Description Test Time Test Comments Results Result Comments Source [[facility]] URINALYSIS, COMPLETE 2019-05-02 16:20:01 Test Item Value Reference Range Interpretation Comme nts UA Turbidity (test code = 19925-5) Clear Clear UA Spec Grav (test code = 5810-7) 1.012 <=1.030 UA pH (test code = 5803-2) 7.0 5.0-8.0 UA Protein (test code = 95491-0) Negative Negative UA Glucose (test code = 73133-6) Negative Negative UA Ketones (test code = 39062-2) Negative Negative UA Bili (test code = 5770-3) Negative Negative UA Blood (test code = 5794-3) Negative Negative UA Nitrite (test code = 5802-4) Negative Negative UA Leuk Est (test code = 5799-2) Negative Negative UA RBC (test code = 79442-5) 1 {/HPF} 0-2 UA WBC (test code = 12752-3) <1 0-5 UA Bacteria (test code = 98578-4) Occasional None Seen UA Mucus (test code = 8247-9) Few None Seen UA Sq Epi (test code = 03834-6) Occasional Few UA Color (test code = 5778-6) Ltyellow UROBILINOGEN (test code = 15831-2) <=1.0 0.1-1.0 [facility]] CULTURE, URINE, [id number] 16:20:01 Test Item Value Reference Range Interpretation Comments FINAL REPORT (test code = FINAL No Growth REPORT) [facility]. [facility] - [id number] 00:00:00 Test Item Value Reference Range Interpretation Comments Case (test code = Click ImageLink button N Case) for report. Specimen 1 (test code Click ImageLink button N = Specimen 1) for report. [facility] Pelvis with Pelvis Transvaginal [id number] 12:40:00PROCEDURE INFORMATION:Exam: US Pelvis Complete, Transabdominal and [...] ovarian cyst.Manolo Mckeon MD On 04/29/2019 15:51:15; [id number]--Ynxz by: Manolo Mckeon MDDictated Date/time: 04/29/19 15:51Electronically Signed by: Manolo Mckeon MD 04/29/2014:51FINAL [facility]] CULTURE, URINE, [id number] 03:00:00 Test Item Value Reference Range Interpretation Comments CULTURE (test code See Comment CULTURE, URINE, ROUTINE = CULTURE) MICRO NUMBER : [id number] TEST STATUS: FINAL SPEC IMEN SOURCE: URINE SPECIMEN QUALIT Y: ADEQUATE RESUL T: No GrowthNO COLLECTION DATE RECEIVED. WE HUIZAR VE USEDTHE DATE TH E SPECIMEN WAS RE CEIVED BY THISLABORATORY THE COLLECTION DATE . IF THISIS INCORREC T, PLEASE CONTACT CLIENT SERVICES.PHONE NUMBER: [phone] [facility][O] Urine Dipstick (In Office)2018-12-31 00:00:00 Test Item Value Reference Range Interpretation Comments Glucose (test code = Glucose) negative N LEUKOCYTES (test code = LEUKOCYTES) negative N NITRITE; Normal (test code = negative N 99901-3) UROBILINOGEN; Normal (test code = 0.2 N 66480-0) PROTEIN; Normal (test code = negative N 59323-3) pH (test code = pH) 5.5 N URINE BLOOD; Normal (test code = trace N 05379-0) SPECIFIC GRAVITY; Normal (test code 1.030 N = 2965-2) KETONES; Normal (test code = negative N 78426-8) BILIRUBIN; Normal (test code = negative N 98843-6) [facility]] URINALYSIS, [id number] 08:48:00 Test Item Value Reference Range Interpretation Comments COLOR; Normal (test code = 5778-6) YELLOW YELLOW N APPEARANCE (test code = APPEARANCE) CLEAR CLEAR N SPECIFIC GRAVITY; Normal (test code 1.015 1.001-1.035 N = 2965-2) PH; Normal (test code = 2756-5) 8.0 5.0-8.0 N GLUCOSE; Normal (test code = NEGATIVE NEGATIVE N 1547-9) BILIRUBIN; Normal (test code = NEGATIVE NEGATIVE N 00976-4) KETONES; Normal (test code = NEGATIVE NEGATIVE N 17089-4) OCCULT BLOOD; Abnormal (test code = 3+ NEGATIVE A 76260-3) PROTEIN; Abnormal (test code = 1+ NEGATIVE A 46462-7) NITRITE; Normal (test code = NEGATIVE NEGATIVE N 70359-2) LEUKOCYTE ESTERASE (test code = NEGATIVE NEGATIVE N LEUKOCYTE ESTERASE) WBC; Normal (test code = 6690-2) 0-5 < OR = 5 N RBC; Abnormal (test code = 789-8) 3-10 < OR = 2 A SQUAMOUS EPITHELIAL CELLS (test 0-5 < OR = 5 code = 91610-7) BACTERIA; Abnormal (test code = FEW NONE SEEN A 630-4) HYALINE CAST; Normal (test code = NONE SEEN NONE SEEN N 92852-6) [facility]] CULTURE, URINE, [id number] 08:48:00 Test Item Value Reference Range Interpretation Comments CULTURE (test See Comment A CULTURE, URINE , ROUTINE code = CULTURE) MICRO NUMB ER: [id number] TEST STATUS: FINAL SPECI MEN SOURCE: URINE SPECIMEN QUALITY: ADEQU ATE RESULT: Greater than 10 0,000 CFU/mL of Prote us mirabilis This organi sm may show imipenem r esistance by mechanisms othe r than a carbapenemase. P .mirabilis - INT RIDDHI AMOX/CLAVULAN ATE S 4 AMPIC ILLIN R >= 32 AMP/SULBACTAM S 4 CEFAZOLI N NR <=4 * *2 CEFEPIME S <=1 CEFTRI AXONE S <=1 CIPROFLOXACIN R >=4 GENTAM ICIN S <=1 IMIPENEM I 2 LEVOFLOX ACIN R >=8 NITROFURANTOIN R 64 PIP/JAMES OBACTAM S <=4 TOBRAMYCIN S <=1 TRIMETHOPRIM/WALSH LFA S 40S=Suscepti ble I=Intermediate R=Resistant * = Not TestedNR = Not Reported NN = See Ther apy CommentsTHERAPY COMMENTS Note 1: Fo r infections othe r than uncomplicated U TI caused by E. co li, K. pneumoniae or P . mirabilis: C efazolin is resistant if RIDDHI > or = 8 mcg/mL. (Distinguishing susceptible susanne miguel intermediate for isolates with M IC < or = 4 mcg/mL requir es additional test ing.) Note 2: For uncomplicated U TI caused by E. coli, K. pneumoniae or P . mirabilis: Cefa zolin is susceptible if RIDDHI <32 mcg/mL and pred icts susceptible to the oral agents cefaclor , cefdinir, ce fpodoxime, cefprozil, cefu roxime, cephalexin a nd loracarbef. [facility]] LIPID [id number] 11:26:00 Test Item Value Reference Range Interpretation Comments CHOLESTEROL, TOTAL; 187 mg/dl <200 N Normal (test code = 3-3) HDL CHOLESTEROL; 53 mg/dl >50 N Normal (test code = 5-9) TRIGLYCERIDES; 74 mg/dl <150 N Normal (test code = 2571-8) LDL-CHOLESTEROL; 117 {MG/DL Reference r jeannie: Above High Threshold JAX} <100 De sirable range (test code = <100 mg/[place] [address]-1) primary prevent ion; <70 mg/dL for patients with C HD or diabetic patien ts with > or = 2 C HD risk factors. L DL-C is now calculat ed using the Abran-Shira calculation, wh ich is a validated novel method providin g better accuracy than the Friedewald equation in the estimation of L DL-C. Abran SS et al . LEONARDO. 2013;310( 19): 0730-7363 (http://educati on.[employer] estDiagnCyan. com/f aq/EOG845) CHOL/HDLC RATIO 3.5 {CALC} <5.0 N (test code = CHOL/HDLC RATIO) NON HDL CHOLESTEROL 134 {MG/DL <130 For zuly ents with (test code = NON HDL JAX} diabete s plus 1 CHOLESTEROL) major ASCVD ris k factor, treatin g to a non-HDL-C goa l of <100 mg/dL (LDL -C of <70 mg/dL) is considered a therapeutic opt ion. [facility]] CMP [id number] 11:26:00 Test Item Value Reference Range Interpretation Comments GLUCOSE; Normal 86 mg/dl 65-139 N Non-fasting (test code = reference inter [place] 1547-9) UREA NITROGEN (BUN) 11 mg/dl 7-25 N (test code = UREA NITROGEN (BUN)) CREATININE (test 0.60 mg/dl 0.50-1.10 N code = CREATININE) eGFR NON- 118 {ML/MIN/1.7} > OR = 60 N SERBIAN (test code = eGFR NON-) eGFR 137 {ML/MIN/1.7} > OR = 60 N SERBIAN (test code = eGFR ) BUN/CREATININE NOT APPLICABLE 6-22 RATIO (test code = BUN/CREATININE RATIO) SODIUM (test code = 140 mmol/L 135-146 N SODIUM) POTASSIUM (test 4.6 mmol/L 3.5-5.3 N code = POTASSIUM) CHLORIDE (test code 104 mmol/L 98-110 N = CHLORIDE) CARBON DIOXIDE 30 mmol/L 20-32 N (test code = CARBON DIOXIDE) CALCIUM (test code 9.5 mg/dl 8.6-10.2 N = CALCIUM) PROTEIN, TOTAL 7.5 g/dl 6.1-8.1 N (test code = PROTEIN, TOTAL) ALBUMIN (test code 4.6 g/dl 3.6-5.1 N = ALBUMIN) GLOBULIN (test code 2.9 {G/DL CALC} 1.9-3.7 N = GLOBULIN) ALBUMIN/GLOBULIN 1.6 {CALC} 1.0-2.5 N RATIO (test code = ALBUMIN/GLOBULIN RATIO) BILIRUBIN, TOTAL; 0.7 mg/dl 0.2-1.2 N Normal (test code = 39889-3) ALKALINE PHSPHATASE 58 u/l 33-115 N (test code = ALKALINE PHSPHATASE) AST; Normal (test 18 u/l 10-30 N code = 1916-6) ALT; Normal (test 12 u/l 6-29 N code = 1742-6) [facility]] TSH, 3RD GENERATION W/REFLEX TO FT4 2018-09-03 11:26:00 Test Item Value Reference Range Interpretation Comments TSH, 3RD GENERATION 0.89 {MIU/L} N Referenc e Range W/REFLEX TO FT4 (test > or code = TSH, 3RD = 20 Years GENERATION W/REFLEX 0.40-4.5 0 TO FT4) Range s First trim chantel 0.26-2.66 Second trimest er 0.55-2.73 Third trimester 0.43-2.91 [facility]] URINALYSIS, [id number] 16:42:01 Test Item Value Reference Range Interpretation Comments UA Turbidity (test code = 31715-4) Clear Clear UA Spec Grav (test code = 5810-7) 1.003 <=1.030 UA pH (test code = 5803-2) 6.0 5.0-8.0 UA Protein (test code = 40613-8) Negative Negative UA Glucose (test code = 86247-0) Negative Negative UA Ketones (test code = 58618-9) Negative Negative UA Bili (test code = 5770-3) Negative Negative UA Blood (test code = 5794-3) Negative Negative UA Nitrite (test code = 5802-4) Negative Negative UA Leuk Est (test code = 5799-2) Negative Negative UA WBC (test code = 75352-3) <1 0-5 UA Bacteria; Abnormal (test code = Many None Seen A 67708-8) UA Sq Epi (test code = 17829-4) Occasional Few UA Color (test code = 5778-6) Ltyellow UROBILINOGEN (test code = 17539-5) <=1.0 0.1-1.0 [facility]] CULTURE, URINE, [id number] 16:42:01 Test Item Value Reference Range Interpretation Comments FINAL REPORT (test Specimen contains 3 or code = FINAL more potential pathogens; REPORT) recommend correlation withurinalysis; if catheterized specimen recommend removal and recollection. Ifclinical situation warrants please call the laboratory for further testing. COMicrobiology [phone]. [facility][O] Urine Dipstick (In Office)2017-11-30 13:20:00 Test Item Value Reference Range Interpretation Comments Glucose (test code = Glucose) N N LEUKOCYTES (test code = LEUKOCYTES) N N NITRITE; Normal (test code = 79148-8) N N UROBILINOGEN; Normal (test code = N N 09563-7) PROTEIN; Normal (test code = 00950-7) N N pH (test code = pH) 6.0 N URINE BLOOD; Normal (test code = N N 79554-3) SPECIFIC GRAVITY; Normal (test code = 1.015 N 2965-2) KETONES; Normal (test code = 09959-8) N N BILIRUBIN; Normal (test code = N N 13437-5) COLOR URINE; Normal (test code = YELLOW N 5778-6) APPEARANCE; Normal (test code = CLEAR N 5767-9) [facility][O] Urine Dipstick (In Office)2017-08-30 10:11:00 Test Item Value Reference Range Interpretation Comments LEUKOCYTES (test code = LEUKOCYTES) Negative N NITRITE; Normal (test code = Negative N 22309-0) PROTEIN; Normal (test code = Negative N 82208-9) URINE BLOOD; Abnormal (test code = Trace A 40408-2) KETONES; Normal (test code = Negative N 34300-7) GLUCOSE; Normal (test code = 1547-9) Negative N [facility]
--- OUTSIDE RECORDS SUMMARY | 2019-09-29 16:46 | XMS REPORT | Summary of Care ---
[...] MARX Unavailable Unavailable LOY MARX Unavailable Unavailable LENIN MARX Unavailable Unavailable Aislinn Abbott Unavailable Unavailable BETHANY Abbott Unavailable Unavailable NAHUM MRAX [facility] Unavailable Unavailable Unavailable Unavailable Unavailable Functional Status Name Dates Details Functional status health issues are not documented Status: Name Dates Details Cognitive status health issues are not documented Status: Problems Name Dates Details Normal routine physical examination (V70.0, Z00.00) Status: Active Esophageal reflux (530.81, K21.9) Status : Active Other signs and symptoms in breast [...] need (V04.81, Z23) Status: A ctive Special DrSukhj[facility] [employer] Analysis Of Computerized Data [...] Active Irregular menses (626.4, N92.6) Status: Active Ovarian Cyst Status: Active Irregular Length Of Menstrual Periods St atus: Active Schizoaffective disorder, depressive type (295.70, F25.1) Status: Active Paroxysmal supraventricular tachycardia (427.0, I47.1) Status: Active Palpitations (785.1, R00.2) Status: Acti ve Acute otitis media (382.9, H66.90) Statu s: Active Irregular menstruation (626.4, N92.6) St atus: Active Heavy menses (626.2, N92.0) Status: Acti ve Iron deficiency anemia due to chronic blood loss (280.0, D50 .0) Status: Active Postoperative visit (V58.49, Z48.89) Sta tus: Active Medications Name Dates Details Plavix TABS Refills: 0 Active Nystatin-Triamcinolone 608670-6.1 UNIT/GM-% External Cream APPLY SPARINGLY TO AFFECTED AREA(S) TWICE DAILY Quantity: 1 Refills: 0 MARINO CAPELLAN M.D. Start : 31-Dec-2018 Active FLUoxetine HCl - 20 MG Oral Capsule TAKE 1 CAPSULE BY MOUTH DAILY Quantity: 90 Refills: 1 JOSELO VARGAS M.D. Start : 02-Feb-2015 Active Corlanor 5 MG Oral Tablet 1/2 tablet PO BID Refills: 0 NAHUM Abbott, BARBARA Start : 27-Jun-2019 Active Azithromycin 500 MG Oral Tablet TAKE 1 TABLET DAILY. Quantity: 1 Refills: 0 NAHUM Abbott, BARBARA Start : 27-Jun-2019 Active 3 Tablet Box Fluticasone Propionate 50 MCG/ACT Nasal Suspension USE 2 SPRAYS IN EACH NOSTRIL ONCE DAILY Quantity: 1 Refills: 1 NAHUM Abbott BARBARA Start : 27-Jun-2019 Active 16 GM Bottle Clopidogrel Bisulfate 75 MG Oral Tablet TAKE 1 TABLET BY MOUTH DAILY Quantity: 90 Refills: 0 NAHUMDUSTIN Abbott, BARBARA Start : 21-Sep-2011 Active Albuterol Sulfate (2.5 MG/3ML) 0.083% Inhalation Nebulization Solution USE 1 VIAL VIA NEBULIZER EVERY 4 HOURS NEEDED Quantity: 1 Refills: 1 NAHUM Abbott, BARBARA Start : 07-Nov-2011 Active 60 x 3 ML Plas Cont Abilify 10 MG Oral Tablet TAKE 1/2 TAB THREE TIMES DAILY AND 1/2 TAB AT BEDTIME NEEDED Quantity: 60 Refills: 11 JOSELO VARGAS M.D. Start : 02-Feb-2015 Active Allergies and Adverse [...] Breast (611 .6) Status: Resolved History of Oligomenorrhea (626.1, N91.5) Status: Resolved History of Onychomycosis of toenail [...] Details Influenza #1 on: 25-Feb-2007 Lot #: [id number] Td on: 25-Feb-2007 Lot #: [id number] Influenza on: 31-Dec-2007 Lot #: [id number] Influenza on: 03-Dec-2009 Lot #: [id number] Influenza on: 19-Dec-2010 Lot #: [id number] Fluzone Quadrivalent 0.5 ML Intramuscular Suspension on: Dec-2015 Lot #: [id number] Fluzone Quadrivalent 0.5 ML Intramuscular Suspension on: Dec-2016 Lot #: [id number] Fluzone Quadrivalent 0.5 ML Intramuscular Suspension on: Lot #: [id number] Fluzone Quadrivalent 0.5 ML Intramuscular Suspension P refilled Syringe on: 20-Dec-2018 Lot #: [id number] Family History Name Dates Details Family history [...] (finding) Vital Signs Date Test Result Details :18 Systolic blood pressure 100 mm[Hg] Status: Comments: Location: [facility]; Position: Sitting Diastolic blood pressure 62 mm[Hg] Status: Comment s: Location: [facility]; Position: Sitting Body height 68 in Status: Weight 201.5 lb Status: Body mass index (BMI) [Ratio] 30.64 kg/m2 Status: Body surface area Derived from formula 2.05 m2 S tatus: Body temperature 97 f Status: Comments: Ks thod: Oral Heart Rate 77 /min Status: :43 Systolic blood pressure 101 mm[Hg] Status: Comments: Location: [facility]; Position: Sitting Diastolic blood pressure 66 mm[Hg] Status: Comment s: Location: [facility]; Position: Sitting Body height 68 in Status: Weight 190 lb Status: Body mass index (BMI) [Ratio] 28.89 kg/m2 Status: Body surface area Derived from formula 2 m2 S tatus: Body temperature 97.1 f Status: Heart Rate 69 /min Status: Results Date Description Value Details Results not documented Plan of Care Name Dates Details Planned Observations Planned Goals not documented Planned Encounters Appointment; MONICA ANAND On: 22-Aug-2019 9:30 Appointment; ABIEL HALL NP On: 22-Aug-2019 10 :15 Appointment; CODEY PHELPS M.D. On: 01-Sep-2019 9:45 Interventions Provided Medication ChangesAbilify 10 MG Oral Tablet - Renew Instructions Name Dates Details Instructions not documented Encounters Appointment; MARINO CAPELLAN M.D. On: 30-Aug-2017 10: [...] Encounter Diagnosis: Problem not documented Appointment; JOSELO VARAGS M.D. On: 27-Nov-2018 10:30 Encounter Diagnosis: Problem not documented Appointment; NATALIE CEDENO M.D. On: 27-Nov-2018 13:45 Encounter Diagnosis: Problem not documented Appointment; MED PROVIDER, TCM On: 20-Dec-2018 11:30 Encounter Diagnosis: Problem [...] 15 :30 Encounter Diagnosis: Problem not documented Appointment; ROXANA MULLER M.D. On: 23-Jul-2019 10: 30 Encounter Diagnosis: Problem not documented Appointment; ZAY GRANADO M.D. On: 24-Jul-2019 13 :00 Encounter Diagnosis: Problem not documented Appointment; CODEY PHELPS M.D. On: 04-Aug-2019 11:00 Encounter Diagnosis: Problem not documented Appointment; ABIEL HALL NP On: 12-Aug-2019 11 :30 Encounter Diagnosis: Problem not documented
--- OUTSIDE RECORDS SUMMARY | 2019-09-29 16:47 | XMS REPORT | Summary of Care ---
:1985 Author Organization [facility] Address [address] [place] [address] Care Team Providers Name Role Phone MARILIA Abbott Unavailable Unavailable NAHUM Abbott Unavailable Unavailable ALICIA Abbott Unavailable Pihlippe Henderson MD Unavailable Philippe VARGAS MD Unavailable Philippe CEDENO MD UT Unavailable Unavailable HUGO MARX Unavailable Unavailable MARILIA MARX Unavailable Unavailable HOMER MARX [facility] Unavailable Unavailable CESILIA MARX Unavailable Unavailable LOY MARX Unavailable Unavailable LENIN MARX Unavailable Unavailable Aislinn Abbott Unavailable Unavailable BETHANY Abbott Unavailable Unavailable NAHUM MARX [facility] Unavailable Unavailable Unavailable Unavailable Unavailable Functional Status [...] Status: Active Depression (311, F32.9) Status: Active Mild intellectual disability (317, F70) [...] Postoperative visit (V58.49, Z48.89) Sta tus: Active Tachycardia (785.0, R00.0) Status: Activ e Recurrent UTI (599.0, N39.0) Status: Act mari Right ankle swelling (719.07, M25.471) S tatus: Active Hyperlipidemia (272.4, E78.5) Status: Ac tive Heart block (426.9, I45.9) Status: Activ e Essential (primary) hypertension (401.9, I10) Status: Active Erythromelalgia (443.82, I73.81) Status: Active Anxiety (300.00, F41.9) Status: Active Medications Name Dates Details Clopidogrel Bisulfate 75 MG Oral Tablet TAKE 1 TABLET BY MOUTH DAILY Quantity: 90 Refills: 0 BARBARA SIDHU M.D. Start : 21-Sep-2011 Active Nystatin-Triamcinolone 222117-0.1 UNIT/GM-% External Cream APPLY SPARINGLY TO AFFECTED AREA(S) TWICE DAILY Quantity: 1 Refills: 0 MARINO CAPELLAN M.D. Start : 31-Dec-2018 Active Corlanor 5 MG Oral Tablet 1/2 tablet PO BID Refills: 0 BARBARA SIDHU M.D. Start : 27-Jun-2019 Active Fluticasone Propionate 50 MCG/ACT Nasal Suspension USE 2 SPRAYS IN EACH NOSTRIL ONCE DAILY Quantity: 1 Refills: 1 BARBARA SIDHU M.D. Start : 27-Jun-2019 Active 16 GM Bottle Albuterol Sulfate (2.5 MG/3ML) 0.083% Inhalation Nebulization Solution USE 1 VIAL VIA NEBULIZER EVERY 4 HOURS NEEDED Quantity: 1 Refills: 1 BARBARA SIDHU M.D. Start : 07-Nov-2011 Active 60 x 3 ML Plas Cont Azithromycin 500 MG Oral Tablet TAKE 1 TABLET DAILY. Quantity: 1 Refills: 0 NAHUM Abbott BARBARA Start : 27-Jun-2019 Active 3 Tablet Box Plavix TABS Refills: 0 Active Abilify 10 [...] Details Influenza #1 on: 25-Feb-2007 Lot #: [id number] Td on: 25-Feb-2007 Lot #: [id number] Influenza on: 31-Dec-2007 Lot #: [id number] Influenza on: 03-Dec-2009 Lot #: [id number] Influenza on: 19-Dec-2010 Lot #: [id number] Fluzone Quadrivalent 0.5 ML Intramuscular Suspension on: Dec-2015 Lot #: [id number] Fluzone Quadrivalent 0.5 ML Intramuscular Suspension on: Dec-2016 Lot #: [id number] Fluzone Quadrivalent 0.5 ML Intramuscular Suspension on: Lot #: [id number] Fluzone Quadrivalent 0.5 ML Intramuscular Suspension P refilled Syringe on: 20-Dec-2018 Lot #: [id number] Family History Name Dates Details Family history [...] (finding) Vital Signs Date Test Result Details [id number] Systolic blood pressure 100 mm[Hg] Status: Comments: Location: [facility]; Position: Sitting Diastolic blood pressure 62 mm[Hg] Status: Comment s: Location: [facility]; Position: Sitting Body height 68 in Status: Weight 201.5 lb Status: Body mass index (BMI) [Ratio] 30.64 kg/m2 Status: Body surface area Derived from formula 2.05 m2 S tatus: Body temperature 97 f Status: Comments: Me thod: Oral Heart Rate 77 /min Status: Results Date Description Value Details Results not documented Plan of Care Name Dates Details Planned Observations Planned Goals not documented Planned Encounters Appointment; CODEY PHELPS M.D. On: 01-Sep-2019 9:45 Appointment; JOSELO VARGAS M.D. On: 13-Nov-2019 13:00 Instructions Name Dates Details Instructions not documented [...]
--- NOTE | 2019-09-29 18:57 | RAD REPORT ---
EXAM DESCRIPTION: RAD - Pelvis - 09/29/2019 6:37 pm CLINICAL HISTORY: PAIN COMPARISON: Hip Left 2 View dated 09/29/2019 TECHNIQUE: AP imaging of the pelvis was obtained. FINDINGS: No fracture of the bony pelvis. No fracture, dislocation or other acute hip joint finding. No significant SI joint findings. No soft tissue abnormality. IMPRESSION: Negative pelvis for acute or significant findings.
--- NOTE | 2019-09-29 18:58 | RAD REPORT ---
EXAM DESCRIPTION: RAD - Hip Left 2 View - 09/29/2019 6:39 pm CLINICAL HISTORY: fall;Pain COMPARISON: No comparisons FINDINGS: AP and frogleg views of the left hip were obtained. There is no fracture or dislocation. No acute or destructive bony process seen. No soft tissue abnormality. IMPRESSION: Negative left hip examination for acute or significant findings.
--- NOTE | 2019-09-29 19:17 | EDPHYS ---
Physician Documentation [facility] Name: Jenn Horan Age: 34 yrs Sex: Female : 1985 Arrival Date: 09/29/2019 Time: 14:48 Bed 14 Private MD: MANGO Physician Natanael Wyman HPI: 09/28 18:30 This 34 yrs old Female presents to ER via Wheelchair with complaints of Fall jr8 Injury, Hip Pain. 18:30 Details of fall: The patient fell from an upright position, while standing. Onset: The jr8 symptoms/episode began/occurred acutely, yesterday. Associated injuries: The patient sustained left leg, decreased range of motion, painful injury. Severity of symptoms: At their worst the symptoms were moderate, in the emergency department the symptoms are unchanged. The patient has not experienced similar symptoms in the past. The patient has not recently seen a physician. Patient with history of CP and POTS. Mother stated that she will pass out and fall occasionally secondary to both processes. Fell a couple of days ago but now with pain to left hip that is not going away and is having worse time walking and bearing weight . DELIVERY ARCHITECT: 19:04 LMP N/A - Hysterectomy ca1 Historical: - Allergies: 15:12 Biaxin; sv 15:12 Cefaclor; sv 15:12 Demerol; sv 15:12 hydromorphone HCl; sv 15:12 meperidine HCl; sv 15:12 Morphine; sv 15:12 NSAIDS (Non-Steroidal Anti-Inflammatory Drug); sv 15:12 PENICILLINS; sv - PMHx: 15:12 Asthma; Cerebral Palsy; Erythromelalgia; GERD; Hearing Loss; Incomplete R BBB; POTS sv "when having an infection"; reactive airway; - PSHx: 15:12 Cholecystectomy; lower right lobectomy; right ovarian tumor removed; sv - Immunization history:: Adult Immunizations. - Social history:: Smoking status: Patient denies any tobacco usage or history of. ROS: 18:30 Eyes: Negative for injury, pain, redness, and discharge, ENT: Negative for injury, jr8 pain, and discharge, Neck: Negative for injury, pain, and swelling, Cardiovascular: Negative for chest pain, palpitations, and edema, Respiratory: Negative for shortness of breath, cough, wheezing, and pleuritic chest pain, Abdomen/GI: Negative for abdominal pain, nausea, vomiting, diarrhea, and constipation, Back: Negative for injury and pain, Skin: Negative for injury, rash, and discoloration, Neuro: Negative for headache, weakness, numbness, tingling, and seizure. 18:30 MS/extremity: Positive for decreased range of motion, pain, tenderness, of the pelvis and left hip. Exam: 18:30 Eyes: Pupils equal round and reactive to light, extra-ocular motions intact. Lids and jr8 lashes normal. Conjunctiva and sclera are non-icteric and not injected. Cornea within normal limits. Periorbital areas with no swelling, redness, or edema. ENT: Nares patent. No nasal discharge, no septal abnormalities noted. Tympanic membranes are normal and external auditory canals are clear. Oropharynx with no redness, swelling, or masses, exudates, or evidence of obstruction, uvula midline. Mucous membranes moist. Neck: Trachea midline, no thyromegaly or masses palpated, and no cervical lymphadenopathy. Supple, full range of motion without nuchal rigidity, or vertebral point tenderness. No Meningismus. Cardiovascular: Regular rate and rhythm with a normal S1 and S2. No gallops, murmurs, or rubs. Normal PMI, no JVD. No pulse deficits. Respiratory: Lungs have equal breath sounds bilaterally, clear to auscultation and percussion. No rales, rhonchi or wheezes noted. No increased work of breathing, no retractions or nasal flaring. Abdomen/GI: Soft, non-tender, with normal bowel sounds. No distension or tympany. No guarding or rebound. No evidence of tenderness throughout. Back: No spinal tenderness. No costovertebral tenderness. Full range of motion. Skin: Warm, dry with normal turgor. Normal color with no rashes, no lesions, and no evidence of cellulitis. Neuro: Awake and alert, GCS 15, oriented to person, place, time, and situation. Cranial nerves II-XII grossly intact. Motor strength 5/5 in all extremities. Sensory grossly intact. Cerebellar exam normal. Normal gait. 18:30 Musculoskeletal/extremity: Extremities: grossly normal except: noted in the left hip: pain, tenderness, To inguinal region and greater trochanteric region , No external signs of trauma noted , ROM: limited active range of motion due to pain, in the left leg, limited passive range of motion due to pain, in the left leg, Circulation is intact in all extremities. Pulses: noted to be 2+ in the right radial artery, right posterior tibial artery, right dorsalis pedis artery, left radial artery, left posterior tibial artery and left dorsalis pedis artery, Sensation intact. Vital Signs: 15:13 BP 100 / 65; Pulse 72; Resp 18; Temp 98.6; Pulse Ox 100% ; Weight 81.65 kg; Height 5 sv ft. 8 in. (172.72 cm); 19:03 BP 116 / 71; Pulse 59; Resp 15 S; Pulse Ox 100% on R/A; ca1 19:42 BP 111 / 73; Pulse 62; Resp 18 S; Pulse Ox 100% on R/A; ca1 15:13 Body Mass Index 27.37 (81.65 kg, 172.72 cm) sv Clarissa Coma Score: 15:12 Eye Response: spontaneous(4). Verbal Response: oriented(5). Motor Response: obeys sv commands(6). Total: 15. Trauma Score (Adult): 15:12 Eye Response: spontaneous(1); Verbal Response: oriented(1); Motor Response: obeys sv commands(2); Systolic BP: > 89 mm Hg(4); Respiratory Rate: 10 to 29 per min(4); Clarissa Score: 15; Trauma Score: 12 MDM: 18:02 Patient medically screened. jr8 18:02 Patient medically screened. quinn 19:14 Data reviewed: vital signs, nurses notes, radiologic studies, plain films. Data jr8 interpreted: Pulse oximetry: on room air is 100 %. Interpretation: normal. Counseling: I had a detailed discussion with the patient and/or guardian regarding: the historical points, exam findings, and any diagnostic results supporting the discharge/admit diagnosis, radiology results, the need for outpatient follow up, a family practitioner, to return to the emergency department if symptoms worsen or persist or if there are any questions or concerns that arise at home. ED course: Discussed with mother that images were negative. If worse or not getting better after a week to have her f/u with orthopedics for imaging again or can come back here. Mother good with this . 09/28 15:16 Order name: Hip Left 2 View XRAY; Complete Time: 19:14 sv 09/28 18:19 Order name: XRAY Pelvis; Complete Time: 19:14 ca1 Administered Medications: 19:30 Drug: traMADol 50 mg {Note: rass 0.} Route: PO; ca1 19:51 Follow up: Response: No adverse reaction; Pain is decreased; RASS: Alert and Calm (0) ca1 Disposition: 20:58 Co-signature as Attending Physician, Natanael Wyman MD I agree with the assessment and quinn plan of care. Disposition: 09/29/19 19:15 Discharged to Home. Impression: Contusion of left hip. - Condition is Stable. - Discharge Instructions: Hip Pain. - Prescriptions for Robaxin 500 mg Oral Tablet - take 2 tablet by ORAL route every 6 hours As needed; 40 tablet. Tramadol 50 mg Oral Tablet - take 1 tablet by ORAL route every 8 hours as needed; 20 tablet. - Medication Reconciliation Form, Thank You Letter, Antibiotic Education, Prescription Opioid Use form. - Follow up: Zen Gill MD; When: 1 week; Reason: Recheck today's complaints, Continuance of care, Re-evaluation by your physician. - Problem is new. - Symptoms have improved. Signatures: Dispatcher [employer] EDHelene Mixon, RN RN Natanael Ferreira MD MD cha Roszak, Josh, PA PA jr8 Hannah Campa RN RN ca1 Corrections: (The following items were deleted from the chart) 19:51 19:15 09/29/2019 19:15 Discharged to Home. Impression: Contusion of left hip. Condition ca1 is Stable. Forms are Medication Reconciliation Form, Thank You Letter, Antibiotic Education, Prescription Opioid Use. Follow up: Zen Gill; When: 1 week; Reason: Recheck today's complaints, Continuance of care, Re-evaluation by your physician. Problem is new. Symptoms have improved. jr8
--- NOTE | 2019-09-29 19:17 | ER ---
Nurse's Notes [facility] Name: Jenn Horan Age: 34 yrs Sex: Female : 1985 Arrival Date: 09/29/2019 Time: 14:48 Bed 14 Private MD: Diagnosis: Contusion of left hip Presentation: 09/28 15:10 Chief complaint: Patient states: fall injury last night onto her left hip. Pt is sv normally ambulatory and has hx of POTS. Care prior to arrival: None. Mechanism of Injury: Fall from standing position. Trauma event details: Injury occurred in the [facility], Injury occurred: at home. Injury occurred: September 28, 2019. 15:10 Acuity: SVETLANA 4 sv 15:10 Method Of Arrival: Wheelchair sv 15:13 Coronavirus screen: Proceed with normal triage. Patient denies a cough. Patient reports sv shortness of breath or difficulty breathing. Patient denies measured and/or subjective temperature greater than 100.4F prior to today's visit. Patient denies travel on a cruise ship or to a country the [facility] currently lists as an affected area. Patient denies contact with known and/or suspected case of COVID-19. Ebola Screen: No symptoms or risks identified at this time. Risk Assessment: Do you want to hurt yourself or someone else? Patient reports no desire to harm self or others. Onset of symptoms was September 28, 2019. 15:13 Initial Sepsis Screen: Does the patient meet any 2 criteria? No. Patient's initial sv sepsis screen is negative. Does the patient have a suspected source of infection? No. Patient's initial sepsis screen is negative. PRINCIPAL PLANNER: 19:04 LMP N/A - Hysterectomy ca1 Trauma Activation: Not Applicable Physician: ED Physician; Name: ; Notified At: ; Arrived At: Physician: General Surgeon; Name: ; Notified At: ; Arrived At: Physician: Radiology; Name: ; Notified At: ; Arrived At: Physician: Respiratory; Name: ; Notified At: ; Arrived At: Physician: Lab; Name: ; Notified At: ; Arrived At: Historical: - Allergies: 15:12 Biaxin; sv 15:12 Cefaclor; sv 15:12 Demerol; sv 15:12 hydromorphone HCl; sv 15:12 meperidine HCl; sv 15:12 Morphine; sv 15:12 NSAIDS (Non-Steroidal Anti-Inflammatory Drug); sv 15:12 PENICILLINS; sv - PMHx: 15:12 Asthma; Cerebral Palsy; Erythromelalgia; GERD; Hearing Loss; Incomplete R BBB; POTS sv "when having an infection"; reactive airway; - PSHx: 15:12 Cholecystectomy; lower right lobectomy; right ovarian tumor removed; sv - Immunization history:: Adult Immunizations. - Social history:: Smoking status: Patient denies any tobacco usage or history of. Screenin:15 Abuse screen: Denies threats or abuse. Denies injuries from another. Nutritional ca1 screening: No deficits noted. Tuberculosis screening: No symptoms or risk factors identified. Fall Risk Fall in past 12 months (25 points). Secondary diagnosis (15 points) impaired mobility, Ambulatory Aid- Crutches/Cane/Walker (15 pts). Gait- Impaired (20 pts.). Total Mckeon Fall Scale indicates High Risk Score (45 or more points). Fall prevention measures have been instituted. Side Rails Up X 2 Family Present and informed to notify staff if the need to leave the bedside As available patient and family educated on Fall Prevention Program and Strategies. Primary Survey: 15:10 NO uncontrolled hemorrhage observed. A: The patient is alert. Airway: patent, No sv supplemental oxygen in use on arrival. Oral cavity: clear, Trachea midline. Breathing/Chest: Respiratory pattern: regular, Respiratory effort: spontaneous, unlabored, Chest inspection: symmetrical rise and fall of the chest. Circulation: Skin color: pink, Skin temperature: warm, dry. Disability Alert. Exposure/Environment: All clothing and personal items were removed. Forensic evidence collection is not deemed to be indicated at this time. Items placed in patient belonging bag. There is no evidence of uncontrolled external bleeding. No obvious injuries are noted at this time. Secondary Survey: 15:10 HEENT: No deficits noted. Gastrointestinal: No deficits noted. : No deficits noted. sv No signs and/or symptoms were reported regarding the genitourinary system. Musculoskeletal: Reports pain in left iliac crest and left hip. Assessment: 18:15 General: Appears in no apparent distress. comfortable, Behavior is calm, cooperative. ca1 Pain: Complains of pain in left hip Pain began 1 day ago. Neuro: Level of Consciousness is awake, alert, obeys commands, Oriented to person, place, time, situation. Cardiovascular: Heart tones S1 S2 present Capillary refill < 3 seconds Patient's skin is warm and dry. Derm: Skin is intact, is healthy with good turgor, Skin is pink, warm \\T\\ dry. Musculoskeletal: Circulation, motion, and sensation intact. Capillary refill < 3 seconds. 19:03 Reassessment: Patient appears in no apparent distress at this time. Patient and/or ca1 family updated on plan of care and expected duration. Pain level reassessed. Patient is alert, oriented x 3, equal unlabored respirations, skin warm/dry/pink. 19:42 Reassessment: Patient appears in no apparent distress at this time. Patient is alert, ca1 oriented x 3, equal unlabored respirations, skin warm/dry/pink. Vital Signs: 15:13 BP 100 / 65; Pulse 72; Resp 18; Temp 98.6; Pulse Ox 100% ; Weight 81.65 kg; Height 5 sv ft. 8 in. (172.72 cm); 19:03 BP 116 / 71; Pulse 59; Resp 15 S; Pulse Ox 100% on R/A; ca1 19:42 BP 111 / 73; Pulse 62; Resp 18 S; Pulse Ox 100% on R/A; ca1 15:13 Body Mass Index 27.37 (81.65 kg, 172.72 cm) sv Clarissa Coma Score: 15:12 Eye Response: spontaneous(4). Verbal Response: oriented(5). Motor Response: obeys sv commands(6). Total: 15. Trauma Score (Adult): 15:12 Eye Response: spontaneous(1); Verbal Response: oriented(1); Motor Response: obeys sv commands(2); Systolic BP: > 89 mm Hg(4); Respiratory Rate: 10 to 29 per min(4); Clarissa Score: 15; Trauma Score: 12 ED Course: 14:48 Patient arrived in ED. as 15:12 Triage completed. sv 15:12 Arm band placed on. sv 18:02 Leonel Novak PA is PHCP. jr8 18:02 Natanael Wyman MD is Attending Physician. jr8 18:15 Patient has correct armband on for positive identification. Bed in low position. Call ca1 light in reach. Side rails up X2. Adult w/ patient. Pulse ox on. NIBP on. Warm blanket given. 18:15 No provider procedures requiring assistance completed. Patient did not have IV access ca1 during this emergency room visit. 18:37 Hip Left 2 View XRAY In Process Unspecified. EDMS 18:38 XRAY Pelvis In Process Unspecified. EDMS 18:57 Hannah Campa, RN is Primary Nurse. ca1 19:15 Zen Gill MD is Referral Physician. jr8 Administered Medications: 19:30 Drug: traMADol 50 mg {Note: rass 0.} Route: PO; ca1 19:51 Follow up: Response: No adverse reaction; Pain is decreased; RASS: Alert and Calm (0) ca1 Intake: 15:12 PO: 0ml; Total: 0ml. sv Output: 15:12 Urine: 0ml; Total: 0ml. sv Outcome: 19:15 Discharge ordered by . jr8 19:50 Discharged to home via wheelchair, with family. ca1 19:50 Condition: stable 19:50 Discharge instructions given to patient, family, Instructed on discharge instructions, follow up and referral plans. no drinking with medication, no driving heavy equipment, medication usage, Demonstrated understanding of instructions, follow-up care, medications, Prescriptions given X 2. 19:51 Patient left the ED. ca1 Signatures: Dispatcher [employer] EDHelene Mixon RN RN Criss Hanks Josh, PA PA jr8 Hannah Campa, RN RN ca1 Corrections: (The following items were deleted from the chart) 15:15 15:13 81.65 kg; Height 5 ft. 8 in.; BMI: 27.3; sv sv 15:16 15:13 Pulse 72bpm; Resp 18bpm; Pulse Ox 100%; Temp 98.6F; 81.65 kg; Height 5 ft. 8 in.; sv BMI: 27.3; sv
[2019-09-29] MEDS ORDERED: TRAMADOL HCL 50 MG TAB ONE (19:39)
[2019-09-29 20:01] VITALS: TEMP 98.6; O2SAT 100
[2019-09-29 20:04] VITALS: BP 111/73
== END 2019-09-29 19:51 | disposition home or self-care (01) ==
LOC: ER 14:46
DX: S70.02XA Contusion of left hip, initial encounter (principal); W19.XXXA Unspecified fall, initial encounter; Y93.01 Activity, walking, marching and hiking; Y92.9 Unspecified place or not applicable; G80.9 Cerebral palsy, unspecified; Z88.0 Allergy status to penicillin; Z88.5 Allergy status to narcotic agent; Z88.6 Allergy status to analgesic agent; Z88.8 Allergy status to other drugs, medicaments and biological substances
CPT/HCPCS: 72170; 99284

== ENCOUNTER 2020-02-02 12:01 | Emergency (ER) | payer OTHER ==
--- OUTSIDE RECORDS SUMMARY | 2020-02-02 12:26 | XMS REPORT | Continuity of Care Document ---
:1985 Author Organization [employer] [facility] Care Team Providers Name Role Phone [employer] [facility] Unavailable Un available Problems Problem Status Onset [...] Number For Provider Date Date Visit AUDIT [id number] 11/06 /2011 [facility] AUDIT [id number] 11/06 [facility] AUDIT [id number] 11/13 [facility] AUDIT [id number] 12/28 [facility] AUDIT [id number] 12/28 [facility] AUDIT [id number] 04/05 /2012 [facility] AUDIT [id number] 04/16 /2012 [facility] AUDIT [id number] 04/17 [facility] AUDIT [id number] 04/19 [facility] AUDIT [id number] 05/03 /2012 [facility] EST, [id number] 05/07 05/03 [place] Provider: [facility] T[facility] Boyle, Status: Pen, Time: 10:30 AM [facility], [id number] 06/20 05/03 [place] Provider: [facility] Tito Herrera, Status: Pen, Time: 10:20 AM AUDIT [id number] 06/26 [facility] AUDIT [id number] 07/12 [facility] EST, [id number] 08/13 07/12 [place] Provider: [facility] CHER Treviño, Status: Pen, Time: 10:00 AM AUDIT [id number] 08/15 [facility] AUDIT [id number] 09/06 [facility] AUDIT [id number] 09/08 [facility] AUDIT [id number] 09/09 [facility] AUDIT [id number] 09/10 [facility] AUDIT [id number] 10/17 [facility] AUDIT [id number] 11/29 [facility] AUDIT [id number] 02/17 [facility] AUDIT [id number] 02/19 [facility] AUDIT [id number] 04/04 /2013 [facility] AUDIT [id number] 04/14 [facility] AUDIT [id number] 05/21 /2013 [facility] ECL, [id number] 05/23 05/21 [place] Provider: [facility] Titus Reynaga, Status: Pen, Time: 1:45 PM AUDIT [id number] 05/23 [facility] AUDIT [id number] 05/26 /2013 [facility] AUDIT [id number] 06/20 /2013 [facility] EST, [id number] 06/26 06/20 [place] Provider: [facility] TIO Boyle, Status: Pen, Time: 8:30 AM Procedures No Data Provided for This Section Assessment and Plan No Data Provided for This Section Plan of Care Plan of Care Date Source [H] GC /CT PCR 09/06/2012 Routine 09/09/2012 [facility] [H] GC /CT PCR 09/06/2012 Routine 09/09/2012 [facility] [QLH] BV/ VAGINITIS PANEL DNA 09/06/2012 [facility] PROBE AFFIRM 09/06/2012 Routine[H] GC [...] Source No Psychosocial Support Lack Of 06/20/2013 [facility] Recreational Opportunities (Denied) No Psychosocial [...] Date Source Family history of Reported 06/20/2013 [facility] Family History Of Heart Disease (Active) Family history of Reported Family History Of Ischemic Heart Disease (Active) Family history of Diabetes Mellitus (V18.0); (Active) Family history of Migraine Headache (Active) Family history of Arthritis (V17.7); (Active) Family history of Hypertension (V17.49); (Active) Family history of Reported 05/26/2013 [facility] Family History Of Heart Disease (Active) Family history of Reported Family History Of Ischemic Heart Disease (Active) Family history of Diabetes Mellitus (V18.0); (Active) Family history of Migraine Headache (Active) Family history of Arthritis (V17.7); (Active) Family history of Hypertension (V17.49); (Active) Family history of Reported 05/23/2013 [facility] Family History Of Heart Disease (Active) Family history of Reported Family History Of Ischemic Heart Disease (Active) Family history of Diabetes Mellitus (V18.0); (Active) Family history of Migraine Headache (Active) Family history of Arthritis (V17.7); (Active) Family history of Hypertension (V17.49); (Active) Family history of Reported 05/21/2013 [facility] Family History Of Heart Disease (Active) Family history of Reported Family History Of Ischemic Heart Disease (Active) Family history of Diabetes Mellitus (V18.0); (Active) Family history of Migraine Headache (Active) Family history of Arthritis (V17.7); (Active) Family history of Hypertension (V17.49); (Active) Family history of Reported 04/14/2013 [facility] Family History Of Heart Disease (Active) Family history of Reported Family History Of Ischemic Heart Disease (Active) Family history of Diabetes Mellitus (V18.0); (Active) Family history of Migraine Headache (Active) Family history of Arthritis (V17.7); (Active) Family history of Hypertension (V17.49); (Active) Family history of Reported 04/04/2013 [facility] Family History Of Heart Disease (Active) Family history of Reported Family History Of Ischemic Heart Disease (Active) Family history of Diabetes Mellitus (V18.0); (Active) Family history of Migraine Headache (Active) Family history of Arthritis (V17.7); (Active) Family history of Hypertension (V17.49); (Active) Family history of Reported 02/19/2013 [facility] Family History Of Heart Disease (Active) Family history of Reported Family History Of Ischemic Heart Disease (Active) Family history of Diabetes Mellitus (V18.0); (Active) Family history of Migraine Headache (Active) Family history of Arthritis (V17.7); (Active) Family history of Hypertension (V17.49); (Active) Family history of Reported 02/17/2013 [facility] Family History Of Heart Disease (Active) Family history of Reported Family History Of Ischemic Heart Disease (Active) Family history of Diabetes Mellitus (V18.0); (Active) Family history of Migraine Headache (Active) Family history of Arthritis (V17.7); (Active) Family history of Hypertension (V17.49); (Active) Family history of Reported 11/29/2012 [facility] Family History Of Heart Disease (Active) Family history of Reported Family History Of Ischemic Heart Disease (Active) Family history of Diabetes Mellitus (V18.0); (Active) Family history of Migraine Headache (Active) Family history of Arthritis (V17.7); (Active) Family history of Hypertension (V17.49); (Active) Family history of Reported 10/17/2012 [facility] Family History Of Heart Disease (Active) Family history of Reported Family History Of Ischemic Heart Disease (Active) Family history of Diabetes Mellitus (V18.0); (Active) Family history of Migraine Headache (Active) Family history of Arthritis (V17.7); (Active) Family history of Hypertension (V17.49); (Active) Family history of Reported 09/10/2012 [facility] Family History Of Heart Disease (Active) Family history of Reported Family History Of Ischemic Heart Disease (Active) Family history of Diabetes Mellitus (V18.0); (Active) Family history of Migraine Headache (Active) Family history of Arthritis (V17.7); (Active) Family history of Hypertension (V17.49); (Active) Family history of Reported 09/09/2012 [facility] Family History Of Heart Disease (Active) Family history of Reported Family History Of Ischemic Heart Disease (Active) Family history of Diabetes Mellitus (V18.0); (Active) Family history of Migraine Headache (Active) Family history of Arthritis (V17.7); (Active) Family history of Hypertension (V17.49); (Active) Family history of Reported 09/09/2012 [facility] Family History Of Heart Disease (Active) Family history of Reported Family History Of Ischemic Heart Disease (Active) Family history of Diabetes Mellitus (V18.0); (Active) Family history of Migraine Headache (Active) Family history of Arthritis (V17.7); (Active) Family history of Hypertension (V17.49); (Active) Family history of Reported 09/06/2012 [facility] Family History Of Heart Disease (Active) Family history of Reported Family History Of Ischemic Heart Disease (Active) Family history of Diabetes Mellitus (V18.0); (Active) Family history of Migraine Headache (Active) Family history of Arthritis (V17.7); (Active) Family history of Hypertension (V17.49); (Active) Family history of Reported 08/15/2012 [facility] Family History Of Heart Disease (Active) Family history of Reported Family History Of Ischemic Heart Disease (Active) Family history of Diabetes Mellitus (V18.0); (Active) Family history of Migraine Headache (Active) Family history of Arthritis (V17.7); (Active) Family history of Hypertension (V17.49); (Active) Family history of Reported 07/12/2012 [facility] Family History Of Heart Disease (Active) Family history of Reported Family History Of Ischemic Heart Disease (Active) Family history of Diabetes Mellitus (V18.0); (Active) Family history of Migraine Headache (Active) Family history of Arthritis (V17.7); (Active) Family history of Hypertension (V17.49); (Active) Family history of Reported 06/26/2012 [facility] Family History Of Heart Disease (Active) Family history of Reported Family History Of Ischemic Heart Disease (Active) Family history of Diabetes Mellitus (V18.0); (Active) Family history of Migraine Headache (Active) Family history of Arthritis (V17.7); (Active) Family history of Hypertension (V17.49); (Active) Family history of Reported 05/03/2012 [facility] Family History Of Heart Disease (Active) Family history of Reported Family History Of Ischemic Heart Disease (Active) Family history of Diabetes Mellitus (V18.0); (Active) Family history of Migraine Headache (Active) Family history of Arthritis (V17.7); (Active) Family history of Hypertension (V17.49); (Active) Family history of Reported 04/19/2012 [facility] Family History Of Heart Disease (Active) Family history of Reported Family History Of Ischemic Heart Disease (Active) Family history of Diabetes Mellitus (V18.0); (Active) Family history of Migraine Headache (Active) Family history of Arthritis (V17.7); (Active) Family history of Hypertension (V17.49); (Active) Family history of Reported 04/17/2012 [facility] Family History Of Heart Disease (Active) Family history of Reported Family History Of Ischemic Heart Disease (Active) Family history of Diabetes Mellitus (V18.0); (Active) Family history of Migraine Headache (Active) Family history of Arthritis (V17.7); (Active) Family history of Hypertension (V17.49); (Active) Family history of Reported 04/16/2012 [facility] Family History Of Heart Disease (Active) Family history of Reported Family History Of Ischemic Heart Disease (Active) Family history of Diabetes Mellitus (V18.0); (Active) Family history of Migraine Headache (Active) Family history of Arthritis (V17.7); (Active) Family history of Hypertension (V17.49); (Active) Family history of Reported 04/05/2012 [facility] Family History Of Heart Disease (Active) Family history of Reported Family History Of Ischemic Heart Disease (Active) Family history of Diabetes Mellitus (V18.0); (Active) Family history of Migraine Headache (Active) Family history of Arthritis (V17.7); (Active) Family history of Hypertension (V17.49); (Active) Family history of Reported 12/29/2011 [facility] Family History Of Heart Disease (Active) Family history of Reported Family History Of Ischemic Heart Disease (Active) Family history of Diabetes Mellitus (V18.0); (Active) Family history of Migraine Headache (Active) Family history of Arthritis (V17.7); (Active) Family history of Hypertension (V17.49); (Active) Family history of Reported 12/29/2011 [facility] Family History Of Heart Disease (Active) Family history of Reported Family History Of Ischemic Heart Disease (Active) Family history of Diabetes Mellitus (V18.0); (Active) Family history of Migraine Headache (Active) Family history of Arthritis (V17.7); (Active) Family history of Hypertension (V17.49); (Active) Family history of Reported 11/14/2011 [facility] Family History Of Heart Disease (Active) Family history of Reported Family History Of Ischemic Heart Disease (Active) Family history of Diabetes Mellitus (V18.0); (Active) Family history of Migraine Headache (Active) Family history of Arthritis (V17.7); (Active) Family history of Hypertension (V17.49); (Active) Family history of Reported 11/07/2011 [facility] Family History Of Heart Disease (Active) Family history of Reported Family History Of Ischemic Heart Disease (Active) Family history of Diabetes Mellitus (V18.0); (Active) Family history of Migraine Headache (Active) Family history of Arthritis (V17.7); (Active) Family history of Hypertension (V17.49); (Active) Family history of Reported 11/07/2011 [facility] Family History Of Heart Disease (Active) Family history of Reported Family History Of Ischemic Heart Disease (Active) Family history of Hypertension (V17.49); (Active) Family history of Diabetes Mellitus (V18.0); (Active) Family history of Migraine Headache (Active) Family history of Arthritis (V17.7); (Active) Advance Directives Order Name Results Value Date Source Advance Directives Advance Directives No Advance 06/20/2013 [facility] Directives available. Advance Directives Advance Directives No Advance 05/26/2013 [facility] Directives available. Advance Directives Advance Directives No Advance 05/23/2013 [facility] Directives available. Advance Directives Advance Directives No Advance 05/21/2013 [facility] Directives available. Advance Directives Advance Directives No Advance 04/14/2013 [facility] Directives available. Advance Directives Advance Directives No Advance 04/04/2013 [facility] Directives available. Advance Directives Advance Directives No Advance 02/19/2013 [facility] Directives available. Advance Directives Advance Directives No Advance 02/17/2013 [facility] Directives available. Advance Directives Advance Directives No Advance 11/29/2012 [facility] Directives available. Advance Directives Advance Directives No Advance 10/17/2012 [facility] Directives available. Advance Directives Advance Directives No Advance 09/10/2012 [facility] Directives available. Advance Directives Advance Directives No Advance 09/09/2012 [facility] Directives available. Advance Directives Advance Directives No Advance 09/09/2012 [facility] Directives available. Advance Directives Advance Directives No Advance 09/06/2012 [facility] Directives available. Advance Directives Advance Directives No Advance 08/15/2012 [facility] Directives available. Advance Directives Advance Directives No Advance 07/12/2012 [facility] Directives available. Advance Directives Advance Directives No Advance 06/26/2012 [facility] Directives available. Advance Directives Advance Directives No Advance 05/03/2012 [facility] Directives available. Advance Directives Advance Directives No Advance 04/19/2012 [facility] Directives available. Advance Directives Advance Directives No Advance 04/17/2012 [facility] Directives available. Advance Directives Advance Directives No Advance 04/16/2012 [facility] Directives available. Advance Directives Advance Directives No Advance 04/05/2012 [facility] Directives available. Advance Directives Advance Directives No Advance 12/29/2011 [facility] Directives available. Advance Directives Advance Directives No Advance 12/29/2011 [facility] Directives available. Advance Directives Advance Directives No Advance 11/14/2011 [facility] Directives available. Advance Directives Advance Directives No Advance 11/07/2011 [facility] Directives available. Advance Directives Advance Directives No Advance 11/07/2011 [facility] Directives available. Functional Status No Data Provided for This Section
--- OUTSIDE RECORDS SUMMARY | 2020-02-02 12:28 | XMS REPORT | Continuity of Care Document ---
:1985 Author Organization [facility] t Address [address] [place] [address] Care Team Providers Name Role Phone NAHUM Attending Clinician Unavailable ALICIA Attending Clinician Unavailable RAFAEL Attending Clinician Unavailable GUME Attending Clinician Unavailable LENIN Attending Clinician Unavailable LOY Attending Clinician Unavailable YOHANA Attending Clinician Unavailable HUGO Attending Clinician Unavailable CHUY Attending Clinician Unavailable HOMER Attending Clinician Unavailable MARILIA Attending Clinician Unavailable MED PROVIDER Attending Clinician [...] Dr. de la cruz of Services Services [place] [facility]ic i Of Of ans [...] Pre-operat d it y of mari mari [place] general general Physici physical physical ans examinatio [...] Univers routine routine ity of physical physical [place] examinatio examinatio Ph ysici n n ans [...] Active U nivers algia algia ity of [place] [facility] ans Essential Essential Problem Active Uni vers (primary) (primary) ity of hypertensi hypertensi [place] Physici ans Heart Heart Problem Active Univers block block ity of [place] [facility] Hyperlipid Hyperlipid Problem Active U nivers emia emia ity of [place] [facility] [place] Psychosis Psychosis Problem Active Uni vers ity of [place] [facility] ans Depression Depression Problem Active U nivers ity of [place] [facility] Right Right Problem Active Univers ankle ankle ity of swelling swelling [place] [facility] ans Mild Mild Problem Active Univers intellectu intellectu it y of al al [place] disability disability Ph ysici ans Tachycardi Tachycardi Problem Active U nivers a a ity of [place] [facility] ans Pruritus Pruritus Problem Active Unive [...] ns ns ity of [place] [facility] ans Heavy Heavy Problem Active Univers menses menses ity of [place] [facility] Iron Iron Problem Active Univers deficiency deficiency it y of anemia due anemia due [place] to chronic to chronic Ph ysici blood loss blood loss an s Postoperat Postoperat Problem Active U nivers mari visit mari visit ity of [place] [facility] ans History of History of Problem Resolve Univers acute acute d ity of otitis otitis [place] media media Physici ans History of History of Problem Resolve Univers Acute Acute d ity of right-side right-side [place] d low back d low back Ph ysici pain with pain with ans left-sided left-sided sciatica sciatica Low back Low back Problem Active Unive rs pain pain ity of [place] [facility]ici ans Back pain Back pain Problem Active Uni vers ity of [place] [facility] ans Oligomenor Problem Active 2013-06-20 M emoria sunshine 16:01:13 l [place] Oligomenor sunshine Active 4 [facility] Scoliosis Problem Active 2013-06-20 Me moria 16:01:13 l [place] Scoliosis Active 4 [facility] Nonpuerper Problem Active 2013-06-20 M emoria al 16:01:13 l Galactorrh Jamie n ea Of The Nonpuerper Left al Breast Galactorrh ea Of The Left Breast Active 4 [facility] Hypertroph Problem Active 2013-06-20 M emoria y Of Left 16:01:13 l Breast [place] Hypertroph y Of Left Breast Active 4 [...] 2013-06-20 Memor ia Throat 16:01:13 l Sore [place] Throat Active 4 [facility] Foot Pain Problem Active 2013-06-20 Me moria (Soft 16:01:13 l Tissue) Foot [place] Pain (Soft Tissue) Active 4 [facility] Viral Problem Active 2013-06-20 Memor ia Gastroente 16:01:13 l ritis Viral [place] Gastroente ritis Active 4 [facility] Abdomen Problem Active 2013-06-20 Phuc grace Tenderness 16:01:13 l Direct Abdomen [place] Suprapubic Tenderness Direct Suprapubic Active 06/20/2013 [facility] Onychomyco Problem Active 2013-06-20 M emoria sis Of The 16:01:13 l Toenails [place] Onychomyco sis Of The Toenails Active 4 [facility] Cyst On Problem Active 2013-06-20 Phuc grace The Right 16:01:13 l Ovary Cyst On [place] The Right Ovary Active 4 [facility] Nausea Problem Active 2013-06-20 Memor ia (Symptom) 16:01:13 l Nausea [place] (Symptom) Active 4 [facility] Acute Problem Active 2013-06-20 Memor ia Sinusitis 16:01:13 l Acute [place] Sinusitis Active 4 [facility] Rectal Problem Active 2013-06-20 Memor ia Pain 16:01:13 l Rectal [place] Pain Active 4 [facility] Fatigue Problem Active 2013-06-20 Phuc grace 16:01:13 l Fatigue [place] Active 4 [facility] Allergic Problem Active 2013-06-20 Mem oria Rhinitis 16:01:13 l Allergic Jamie n Rhinitis Active 4 [facility] Asthma Problem Active 2013-06-20 Memor ia 16:01:13 l Asthma [place] Active 4 [facility] Heart Problem Active 2013-06-20 Memor ia Block 16:01:13 l Heart [place] Block Active 4 [facility] Hyperlipid Problem Active 2013-06-20 M emoria emia 16:01:13 l [place] Hyperlipid emia Active 4 [facility] Joint [...] Memor ia Joint Pain 16:01:13 l Ankle [place] Joint Pain Active 06/20/2013 [facility] Erythromel Problem Active 2013-06-20 M emoria algia 16:01:13 l [place] Erythromel algia Active 4 [facility] Hypertensi Problem Active 2013-06-20 M emoria on 16:01:13 l [place] Hypertensi on Active 06/20/2013 [facility] Paroxysmal Problem Active 2013-06-20 M emoria Supraventr 16:01:13 l icular [place] Tachycardi Paroxysmal a Supraventr icular Tachycardi a Active 06/20/2013 [facility] Abdominal Problem Active 2013-06-20 Me moria Pain In 16:01:13 l The Right [place] Lower Abdominal Belly Pain In (RLQ) The Right Lower Belly (RLQ) Active 4 [facility] Mild Problem Active 2013-06-20 Memor ia Intellectu 16:01:13 l al Mild [place] Disabiliti Intellectu es al Disabiliti es Active 06/20/2013 [facility] Dysmenorrh Problem Active 2013-06-20 M emoria ea 16:01:13 l [place] Dysmenorrh ea Active 06/20/2013 [facility] Bartholin Problem Active 2013-06-20 Me moria Gland Cyst 16:01:13 l [place] Bartholin Gland Cyst Active 06/20/2013 [facility] Bacterial Problem Active 2013-06-20 Me moria Vaginosis 16:01:13 l [place] Bacterial Vaginosis Active 4 [facility] Pelvic Problem Active 2013-06-20 Memor ia Pain 16:01:13 l Pelvic [place] Pain Active 4 [facility] Gynecologi Problem Active 2013-06-20 M emoria c Services 16:01:13 l Intrauteri Jamie n ne Device Gynecologi (IUD) c Services Checking Intrauteri ne Device (IUD) Checking Active 4 [facility] Raynaud's Problem Active 2013-06-20 Me moria Phenomenon 16:01:13 l [place] Raynaud's Phenomenon Active 06/20/2013 [facility] Allergies, Adverse Reactions, Alerts Allergy Allergy [...] Penicill Active Memori a ins ins l [place] Biaxin Biaxin Active Memoria TABS TABS l [place] Morphine Morphine Active Memori a Derivati Derivati l ves ves [place] NSAIDs NSAIDs Active Memoria l [place] Cipro Cipro Active Memoria TABS TABS l [place] Levaquin Levaquin Active Memori a TABS TABS l [place] Demerol Demerol Active Memoria TABS TABS l [place] Dilaudid Dilaudid Active Memori a TABS TABS l [place] Family History Family Member Diagnosis Comments Start Date Stop Date Source Unknown Family Family history of Family History [facility] Hypertension [place] [facility] Unknown Family Family History 2011-11-07 2011-11-07 Christinaori al Member 14:45:32 14:45:32 [place] Grandmother Family history of Univer sity of rheumatoid [place] arthritis Physicians Mother Family history of Univers ity of hypertension [place] [facility] Social History Social Habit Start Date Stop Date Quantity Comments Source Social History 2013-06-20 2013-06-20 [place] Kalyan wen 16:01:13 16:01:13 Smoking Status Start Date Stop Date Source [facility] smoked [facility]finding[facility] [place] [facility] Medications Ordered Filled Start Stop Current Ordering Indication Dosage Frequency Signature Comments Components Source Medication Medication Date Date Medication? Clinician (SIG) Name Name Fluticasone Fluticasone 0 Yes BARBARA QD USE 2 Univers Propionate Propionate 4-03 NAHUM SPRAYS IN ity of 50 MCG/ACT 50 MCG/ACT 00:00: M.D. EACH [place] Nasal Nasal 00 NOSTRIL Physici Suspension Suspension ONCE DAILY ans Corlanor Corlanor 0 Yes BARBARA 1 and half Univers 7.5 MG Oral 7.5 MG Oral 4-03 NAHUM tablet PO ity of Tablet Tablet 00:00: M.D. BID [place] 00 Physici ans Nystatin-Tr Nystatin-Tr 2018-03 Yes GAZALA Q0.5D APPLY Univers iamcinolone iamcinolone 0-08 CAPELLAN SPARINGLY ity of [id number] [id number] 00:00: M.D. TO [place] UNIT/GM-% UNIT/GM-% 00 AFFECTED P hysici External External AREA(S) ans Cream Cream TWICE DAILY FLUoxetine FLUoxetine 2014-03 Yes JOSELO 1 QD TAKE 1 Univers HCl - [...] Tablet 00 ; End Date: (Active) Promethazin 2013-0 Yes ; Start Mem oria e HCl [...] madi Tablet 00 (Active) Delayed Release MetroNIDAZO 2012- Yes ; Start Mem oria LE 500 MG 6-16 Date: l Oral Tablet 05:00: 09/08/2012 [place] 00 ; End Date: (Active) Hydrocodone 2012- Yes ; Start Mem oria -Acetaminop 08-15 Date: l hen 5-325 05:00: 08/15/2012 He rmann MG Oral 00 (Active) Tablet Flovent HFA Yes ; Start Mem oria 220 MCG/ACT 08-15 Date: l Inhalation 05:00: 08/15/2012 H ermann Aerosol 00 (Active) Metamucil Yes (Active) Mem oria POWD 1-11 l 22:19: [place] 09 Cranberry Yes (Active) Mem oria CAPS 1-11 l 22:19: [place] 09 Lidocaine 2011-03 Yes ; Start Memor ia Viscous 2 % 0-05 Date: l Mouth/Throa 05:00: 12/29/2011 [place] t Solution 00 ; End Date: (Active) Azithromyci 2011-03 Yes ; Start Mem oria n 250 MG 0-05 Date: l Oral Tablet 05:00: 12/29/2011 [place] 00 ; End Date: (Active) Cranberry Yes (Active) Mem oria CAPS 8-21 l 12:15: [place] 55 Albuterol Yes ; Start Memor ia Sulfate 8-14 Date: l (2.5 05:00: 11/07/2011 [place] MG/3ML) 00 (Active) 0.083% Inhalation Nebulizatio n Solution ProAir HFA Yes ; Start Phuc grace 108 (90 [...] o f (2.5 (2.5 00:00: M.D. NEBULIZER [place] MG/3ML) MG/3ML) 00 EVERY 4 Physic i 0.083% 0.083% HOURS ans Inhalation Inhalation NEEDED Nebulizatio Nebulizatio n Solution n Solution Clopidogrel Yes ; Start Mem oria Bisulfate 6-28 Date: l 75 MG Oral 05:00: 09/21/2011 H ermann Tablet 00 ; End Date: (Active) Clopidogrel Clopidogrel Yes BARBARA TAKE 1 Univers Bisulfate Bisulfate 6-28 NAHUM TABLET ity of 75 MG Oral 75 MG Oral 00:00: M.D. DAILY. [place] Tablet Tablet 00 PATIENT Physi ci NEEDS ans APPOINTMEN T FOR ADDITIONAL REFILLS TraMADol Yes ; Start Memori a HCl 50 MG 9-10 Date: l Oral Tablet 05:00: 12/03/2009 [place] 00 (Active) Montelukast Yes ; Start Mem oria Sodium 10 11-24 Date: l MG Oral 05:00: 11/24/2009 Herm madi Tablet 00 (Active) Aciphex 20 Yes ; Start Phuc grace MG Oral 4-14 Date: l Tablet 05:00: 07/07/2008 Anneliese nn Delayed 00 (Active) Release Plavix TABS Plavix TABS Yes U nivers ity of [place] Physici ans Immunizations Ordered Immunization Filled Immunization Date Status Commen ts Source Name Name Fluzone Quadrivalent 2018-12-20 Completed Univ ersity of 0.5 ML Intramuscular 11:49:00 [place] [facility] Suspension Prefilled Syringe Fluzone Quadrivalent 2017-11-30 Completed Univ ersity of 0.5 [place] Intramuscular 13:18:00 [place] Suspension Fluzone Quadrivalent 2017-01-02 Completed Univ ersity of 0.5 ML Intramuscular 11:16:00 [place] Suspension Fluzone Quadrivalent 2016-01-13 Completed Univ ersity of 0.5 ML Intramuscular 14:22:00 [place] Suspension Influenza 2010-12-19 Completed University of 14:37:00 [place] Phys[facility] ns Influenza 2009-12-03 Completed University of 17:39:00 [place] [facility] Influenza 2007-12-31 Completed University of 00:00:00 [place] [facility] Influenza 2007-02-25 Completed University of 00:00:00 [place] [facility] Td 2007-02-25 Completed University of 00:00:00 [place] [facility] ns Vital Signs Vital Name Observation Time Observation Value Comments Source Systolic blood 2019-08-04 100 mm[Hg] Location: [facility] 11:18:00 Position: [place] Phys[facility] s Sitting Diastolic blood 2019-08-04 62 mm[Hg] Location: [facility] 11:18:00 Position: [place] Phys[facility] s Sitting Body height 2019-08-04 68 [in_us] University 11:18:00 [place] [facility] s Weight 2019-08-04 201.5 [lb_av] University of 11:18:00 [place] [facility] s Body mass index 2019-08-04 30.64 kg/m2 [place] o f (BMI) [Ratio] 11:18:00 [place] [facility] ns Body temperature 2019-08-04 97 [degF] Method: Oral University of 11:18:00 [place] [facility] Heart Rate 2019-08-04 77 /min University of 11:18:00 [place] [facility] s Systolic blood 2019-07-23 101 mm[Hg] Location: [facility] 10:43:00 Position: [place] Physician s Sitting Diastolic blood 2019-07-23 66 mm[Hg] Location: [facility] 10:43:00 Position: [place] Physician s Sitting Body height 2019-07-23 68 [in_us] University of 10:43:00 [place] [facility] s Weight 2019-07-23 190 [lb_av] University of 10:43:00 [place] [facility] s Body mass index 2019-07-23 28.89 kg/m2 University o f (BMI) [Ratio] 10:43:00 [place] [facility] ns Heart Rate 2019-07-23 69 /min University 10:43:00 [place] [facility] s Body temperature 2019-07-23 97.1 [degF] University of 10:43:00 [place] [facility] s Systolic blood 2019-05-02 112 mm[Hg] Location: Vic; [facility] 15:13:00 Position: [place] Physician s Sitting Diastolic blood 2019-05-02 76 mm[Hg] Location: [facility]; [facility] 15:13:00 Position: [place] Phys[facility] s Sitting Body height 2019-05-02 68 [in_us] University of 15:13:00 [place] [facility] Weight 2019-05-02 190 [lb_av] University of 15:13:00 [place] [facility] s Body mass index 2019-05-02 28.89 kg/m2 University o f (BMI) [Ratio] 15:13:00 [place] Phys[facility] ns Heart Rate 2019-05-02 79 /min University of 15:13:00 [place] [facility] s BP Systolic 2019-04-15 122 mm[Hg] [place] [facility] of 16:33:00 Position: [place] Physician s Sitting BP Diastolic 2019-04-15 78 mm[Hg] Location: [facility] 16:33:00 Position: [place] Physician s Sitting Height 2019-04-15 68 [in_us] University of 16:33:00 [place] [facility] s Weight 2019-04-15 209 [lb_av] University of 16:33:00 [place] [facility] Body Mass Index 2019-04-15 31.78 kg/m2 University o f Calculated 16:33:00 [place] [facility] s BP Systolic 2018-12-31 113 mm[Hg] Location: Vic; [facility] 16:04:00 Position: [place] Physician s Sitting BP Diastolic 2018-12-31 79 mm[Hg] [place] [facility] [facility] 16:04:00 Position: [place] Physician s Sitting Height 2018-12-31 68 [in_us] University of 16:04:00 [place] [facility] s Weight 2018-12-31 204 [lb_av] University of 16:04:00 [place] [facility] s Body Mass Index 2018-12-31 31.02 kg/m2 University o f Calculated 16:04:00 [place] [facility] s Temperature 2018-12-31 97.9 [degF] Method: Oral University of 16:04:00 [place] [facility] Heart Rate 2018-12-31 79 /min University of 16:04:00 [place] [facility] BP Systolic 2018-12-20 136 mm[Hg] Location: Vic; [place] of ::00 Position: [place] [facility]ician s Sitting BP Diastolic 2018-12-20 82 mm[Hg] Location: [place]; [place] of :28:00 Position: [place] Physician s Sitting Height 2018-12-20 68 [in_us] University of 11:28:00 [place] [facility] s Weight 2018-12-20 208.125 [lb_av] University o f 11:28:00 [place] [facility] s Body Mass Index 2018-12-20 31.65 kg/m2 University o f Calculated 11:28:00 [place] [facility] s Temperature 2018-12-20 97.5 [degF] Method: Oral [place] of 11:: [place] [facility] Heart Rate 2018-12-20 72 /min Location: L [place] of :: Brachial [place] [facility] s Artery; Respiration Rate 2018-12-20 16 /min Quality: Normal Universi ty of 11:28:00 [place] [facility] s BP Systolic 2018-11-27 104 mm[Hg] Location: [place]; [place] of :59:00 Position: [place] Physician s Sitting BP Diastolic 2018-11-27 67 mm[Hg] Location: [facility]; [place] of :59:00 Position: [place] Physician s Sitting Height 2018-11-27 68 [in_us] University of 10:59:00 [place] [facility] s Weight 2018-11-27 204 [lb_av] University of 10:59:00 [place] [facility] Body Mass Index 2018-11-27 31.02 kg/m2 University o f Calculated 10:59:00 [place] [facility] s Temperature 2018-11-27 98.2 [degF] Method: Oral University of 10:59:00 [place] [facility] Heart Rate 2018-11-27 76 /min Location: R [place] of 10:59:00 Brachial [place] [facility] s Artery; Respiration Rate 2018-11-27 18 /min Quality: Normal Universi ty of 10:59:00 [place] [facility] s O2 SAT 2018-11-27 99 % Source: RA [place] of 10:59:00 [place] [facility] BP Systolic 2018-11-26 105 mm[Hg] Location: Vic; [place] of 11:27:00 Position: [place] Physician s Supine BP Diastolic 2018-11-26 74 mm[Hg] Location: [facility]; [place] of 11:27:00 Position: [place] [facility]ician s Supine Heart Rate 2018-11-26 75 /min Location: R [facility] 11::00 Brachial [place] [facility] s Artery; Quality: Normal BP Systolic 2018-11-26 115 mm[Hg] [place]: [facility] of :25:00 Position: [place] Physician s Standing BP Diastolic 2018-11-26 78 mm[Hg] [place]: [facility]; [facility] 11:25:00 Position: [place] Physician s Standing Heart Rate 2018-11-26 123 /min Location: L [facility] 11:25:00 Brachial [place] [facility] s Artery; Quality: Normal BP Systolic 2018-11-26 91 mm[Hg] Location: [facility]; [facility] ::00 Position: [place] Physician s Sitting BP Diastolic 2018-11-26 70 mm[Hg] Location: [facility]; [facility] ::00 Position: [place] Physician s Sitting Heart Rate 2018-11-26 84 /min Location: R [facility] ::00 Brachial [place] [facility] s Artery; Quality: Normal Heart Rate 2018-11-26 84 /min Location: R [facility] 11:18:00 Brachial [place] [facility] s Artery; Quality: Normal BP Systolic 2018-11-26 106 mm[Hg] Location: [facility]; [facility] 10:57:00 Position: [place] Physician s Sitting BP Diastolic 2018-11-26 72 mm[Hg] Location: [facility] 10:57:00 Position: [place] Physician s Sitting Height 2018-11-26 68 [in_us] [facility] 10:57:00 [place] [facility] s Weight 2018-11-26 204 [lb_av] [place] of 10:57:00 [place] [facility] s Body Mass Index 2018-11-26 31.02 kg/m2 University o f Calculated 10:57:00 [place] [facility] s Temperature 2018-11-26 98.7 [degF] Method: Oral University of 10:57:00 [place] [facility] Heart Rate 2018-11-26 78 /min Location: R [facility] 10:57:00 Radial; [place] [facility] s Quality: Normal Respiration Rate 2018-11-26 16 /min Quality: Normal Universi ty of 10:57:00 [place] [facility] s BP Systolic 2018-04-23 107 mm[Hg] [place]: [facility]; [facility] 12:50:00 Position: [place] Physician s Sitting BP Diastolic 2018-04-23 73 mm[Hg] Location: [facility]; University of 12:50:00 Position: [place] Physician s Sitting Weight 2018-04-23 208.25 [lb_av] University of 12:50:00 [place] [facility] Body Mass Index 2018-04-23 31.66 kg/m2 University o f Calculated 12:50:00 [place] [facility] s Temperature 2018-04-23 97.7 [degF] Method: Oral University of 12:50:00 [place] [facility] Heart Rate 2018-04-23 65 /min Location: [facility] of 12:50:00 Brachial [place] [facility] s Artery; Quality: Normal Respiration Rate 2018-04-23 18 /min Quality: Normal Universi ty of 12:50:00 [place] [facility] s O2 SAT 2018-04-23 99 % Source: [facility] of 12:50:00 [place] [facility] s BP Systolic 2017-11-30 115 mm[Hg] [facility] 13:16:[facility] Position: [place] Physician s Sitting BP Diastolic 2017-11-30 78 mm[Hg] [facility] 13[facility]16:[facility] Position: [place] [facility] s Sitting Height 2017-11-30 68 [in_us] University of 13:16:00 [place] [facility] Weight 2017-11-30 203 [lb_av] University of 13:16:00 [place] [facility] Body Mass Index 2017-11-30 30.87 kg/m2 University o f Calculated 13:16:00 [place] [facility] s Temperature 2017-11-30 98.2 [degF] Method: Oral University of 13:16:00 [place] [facility] Heart Rate 2017-11-30 96 /min Location: [facility] 13:16:00 Radial; [place] Physician s Quality: Normal Respiration Rate 2017-11-30 16 /min Quality: Normal Universi ty of 13:16:00 [place] [facility] s BP Systolic 2017-08-30 113 mm[Hg] Location: [facility]; [place] of 10:00:00 Position: [place] Physician s Sitting BP Diastolic 2017-08-30 78 mm[Hg] Location: [place]; [place] of 10:00:00 Position: [place] Physician s Sitting Height 2017-08-30 68 [in_us] University of 10:00:00 [place] [facility] Weight 2017-08-30 205 [lb_av] University of 10:00:00 [place] [facility] Body Mass Index 2017-08-30 31.17 kg/m2 University o f Calculated 10:00:00 [place] [facility] s Temperature 2017-08-30 98.3 [degF] Method: Oral University of 10:00:00 [place] [facility] Heart Rate 2017-08-30 78 /min University of :00:00 [place] [facility] s BP Systolic 2017-08-06 95 mm[Hg] [place] [facility] of :24:00 Position: [place] Physician s Sitting BP Diastolic 2017-08-06 63 mm[Hg] Location: [place]; [place] of :24:00 Position: [place] Physician s Sitting Height 2017-08-06 68 [in_us] University of :24:00 [place] [facility] Body Mass Index 2017-08-06 31.52 kg/m2 University o f Calculated :24:00 [place] [facility] s Weight 2017-08-06 207.3125 [lb_av] University of :24:00 [place] [facility] Temperature 2017-08-06 98 [degF] Method: University of ::00 Temporal [place] [facility] s Heart Rate 2017-08-06 81 /min University of ::00 [place] [facility] s Respiration Rate 2017-08-06 16 /min Quality: Normal Universi ty of :24:00 [place] [facility] s BP Systolic 2017-08-06 107 mm[Hg] Location: [facility]; [place] of ::00 Position: [place] [facility]ician s Sitting BP Diastolic 2017-08-06 74 mm[Hg] Location: [place]; [place] of ::00 Position: [place] [facility]ician s Sitting Height 2017-08-06 68 [in_us] University of :29:00 [place] [facility] Body Mass Index 2017-08-06 31.47 kg/m2 University o f Calculated ::00 [place] [facility] s Weight 2017-08-06 207 [lb_av] University of ::00 [place] [facility] Heart Rate 2017-08-06 69 /min Location: R [place] of ::00 Radial; [place] [facility] s Respiration Rate 2017-08-06 16 /min Quality: Normal Universi ty of 10:29:00 [place] [facility] s O2 SAT 2017-08-06 99 % Source: RA [place] of :29:00 [place] [facility] s BP Systolic 2017-07-27 110 mm[Hg] Location: [facility]; [facility] :36:00 Position: [place] Physician s Sitting BP Diastolic 2017-07-27 78 mm[Hg] Location: [place]; [facility] 10:36: Position: [place] [facility] s Sitting Height 2017-07-27 68 [in_us] [facility] :36:00 [place] [facility] s Body Mass Index 2017-07-27 31.54 kg/m2 [facility] Calculated :36: [place] Physician s Weight 2017-07-27 207.4375 [lb_av] [facility] :: [place] [facility] s Temperature 2017-07-27 98.5 [degF] Method: Oral [facility] :: [place] [facility] s Heart Rate 2017-07-27 69 /min Location: R [facility] :36: Brachial [place] [facility]ician s Artery; Quality: Normal Respiration Rate 2017-07-27 16 /min Quality: Normal Universi ty of :36: [place] [facility] s Procedures Procedure Date / Time Performing Clinician Source Performed [QL] CMP W/EGFR 2019-10-20 00:00:00 [facility] Physicians MRI Spine lumbar wo 2019-10-20 00:00:00 [facility] contrast [id number] Physicians . [facility] - PAP 2019-05-02 00:00:00 [facility] Physicians [QLH] CULTURE, URINE, 2019-05-02 00:00:00 [facility] ROUTINE Physicians [QL] URINALYSIS, COMPLETE 2019-05-02 [facility] with Pelvis 2019-04-15 00:00:00 [facility] Transvaginal [id number] Physicians [QL] CULTURE, URINE, 2018-12-31 [facility]INAL[facility], COMPLETE 2018-12-03 [facility] [QL] CULTURE, URINE, 2018-12-03 00:00:00 [facility] ROUTINE Physicians [N] 2D Echo complete, with 2018-11-26 00:00:00 [facility] [facility] [id number] Physicians [QL] CMP W/EGFR 2018-04-23 00:00:00 [facility] Physicians [QL] LIPID PANEL 2018-04-23 00:00:00 [facility] Physicians [QL] TSH, 3RD GENERATION 2018-04-23 00:00:00 [facility] [place] [facility] FT4 Physicians [QLH] CBC (INCLUDES 2018-04-23 00:00:00 [facility] DIFF/PLT) Physicians [QL] HEMOGLOBIN A1c 2018-04-23 00:00:00 [facility] Physicians [QL] URINALYSIS, COMPLETE 2017-11-30 00:00:00 [facility] [QL] CULTURE, URINE, 2017-11-30 00:00:00 [facility] ROUTINE Physicians US Pelvis Transvaginal 2017-11-30 00:00:00 [facility] [id number] Physicians History of Appendectomy [facility] Physicians [facility] of Oophorectomy [facility] Physicians Plan of Care Planned Activity Planned Date Details Comments Source Diagnostic Test 2018-12-17 [N] 2D Echo [facility] Pending 00:00:00 complete, with Physicians Doppler 06729 [code = [N] 2D Echo complete, with Doppler 14151] Future Scheduled Test 2012-09-09 Plan of Care Memori al [place] 14:02:29 [code = 66561-0] Future Scheduled Test 2012-09-09 Plan of Care Memori al [place] 01:46:25 [code = 72515-7] Future Scheduled Test 2012-09-06 [facility] [place] 22:39:47 [code = 02060-1] Future Scheduled Test 2012-04-16 Plan of Care Memori al [place] 17:31:01 [code = 64131-4] Future Scheduled Test 2011-11-14 [facility] Memori al [place] 12:15:55 [code = 77484-3] Future Scheduled Test 2011-11-07 [facility] Memori [facility] [place] 15:15:49 [code = 89673-6] Future Scheduled Test 2011-11-07 Plan of Care Memori al [place] 14:45:32 [code = 79876-1] Future Appointment 2020-04-14 Deepali JOSUE. [facility] 11:30:00 Selina VARGAS Encounters Start End Encounter Admission Attending Care Care Encounter Source Date/Time Date/Time Type Type Clinicians Facility Department ID 2020-01-19 2020-01-19 Fiordaliza SIDHU [facility] Family [id number] [facility] 11:10:00 11:10:00 t; Milena JIMENEZ Medicine - ity of [facility] Kenneth JIMENEZ M.D. Center ans 2019-11-18 2019-11-18 Appointmen ALICIA [facility] [id number] Univers 11:00:00 11:00:00 t; JOSELO VARGAS ity o f SHAOJIE, M.D. [place] Physici ans 2019-11-13 2019-11-13 Appointmen ALICIA [facility] Multispecia [id number] Univers 13:00:00 13:00:00 t; JOSELO VARGAS lty - jono JOSUE M.D. Internation Lobo as Milena [facility] Phys ici ans 2019-11-06 2019-11-06 Appointchika HALL, [facility] [id number] Univers 10:30:00 10:30:00 t; YAN BEEBE it y of [place], [place] Donna BEEBE [facility] ans 2019-10-20 2019-10-20 [facility] [id number] Univers 10:10:00 10:10:00 t; Milena JIMENEZ it y of [place], [place] Donna JIMENEZ M.D. ans 2019-09-19 2019-09-19 Appointmen GUME [facility] [id number] Univers 09:00:00 09:00:00 t; SLICK DUNAWAY M.D. i ty of Efraín KRUGER M.D. Physici ans 2019-09-15 2019-09-15 [facility] [id number] Univers 13:30:00 13:30:00 t; Milena ALEGRE ity of [place], [place] Milena ALEGRE Physi ci ans 2019-08-12 2019-08-12 [facility] RAFAEL, [facility] [id number] Univers 11:30:00 11:30:00 t; YAN BEEBE y of [place], [place] Donna [facility]BE [facility] ans 2019-08-04 2019-08-04 [facility] LENIN, [facility] Women's [id number] Univers 11:00:00 11:00:00 t; Milena [facility]LEGRE [facility]ena ALE[facility] Medical Physi ci [place] ans 2019-07-24 2019-07-24 Appointmen LOY, AILIN [facility] [id number] Univers 13:00:00 13:00:00 t; jono COLLAZO M.D. [place] COLLAZO M.D. [facility] 2019-07-24 2019-07-23 Inpatient U [facility] [id number] [facility] 13:05:00 12:00:00 2019-07-23 2019-07-23 Appointmen AILIN MULLER Obstetrics [id number] Univers 10:30:00 10:30:00 t; Tahir SCHMIDT M.D. Gynecology [place] SCHMIDT [facility] Physi ci Deepali. [facility] ans 2019-07-16 2019-07-16 Appointchika HALL, [facility] UTP [id number] Univers 15:30:00 15:30:00 t; YAN BEEBE y [place] Donna [facility]BE [facility] ans 2019-06-27 2019-06-27 Appointmen NAHUM, [facility] Family [id number] Univers 13:00:00 13:00:00 t; Milena JIMENEZ [facility] - ity [facility] Kenneth JIMENEZ M.D. [place] ans 2019-06-17 2019-06-17 Appointmen AILIN VARGAS Multispecia [id number] Univers 12:00:00 12:00:00 t; JOSELO VARGAS lty - jono JOSUE M.D. Internation Lobo ga M.D. [facility] Phys [facility] ans 2019-05-13 2019-05-13 Appointmen RAFAEL, [facility] UTP [id number] Univers 11:00:00 11:00:00 t; YAN BEEBE y [place] Donna BEEBE NP ans 2019-05-09 2019-05-09 Appointmen HUGO, [facility] [id number] Univers 10:45:00 10:45:00 t; ANABEL ARIAS M.D. ity Efraín LITTLE M.D. Physici ans 2019-05-02 2019-05-02 Appointmen [facility] Women's [id number] Univers 15:00:00 15:00:00 t; Blank IBARRA M.D. [facility] FRED Medical Donna MBud [facility] 2019-04-28 2019-04-28 Emergency E MHBL MHBL [id number] MHBL 12:36:00 12:36:00 2019-04-15 2019-04-15 Appointmen HOMER [facility] Women's [id number] Univers 15:40:00 15:40:00 t; Blank RAMIREZ - it y lele CORONEL M.D. [place] [facility] Elham RAMIREZ M.D. [facility] 2019-02-26 2019-02-26 Appointmen [facility] [id number] Univers 10:30:00 10:30:00 t; ANABEL ARIAS M.D. ity Efraín LITTLE M.D. Physici [facility] 2018-12-31 2018-12-31 [facility]ika [facility] [id number] Univers 15:00:00 15:00:00 t; Blank PICHARDO M.D. [facility] Kenneth PICHARDO M.D. [facility] 2018-12-25 2018-12-25 Appointmen RAFAEL [facility] [id number] Univers 13:30:00 13:30:00 t; YAN BEEBE y [place], [place] Jordi BEEBEi [facility]OSPITAL [facility] ans 2018-12-20 2018-12-20 Appointmen MED [facility] Centralized [id number] Univers 11:30:00 11:30:00 t; MED PROVIDER, Case ity of PROVIDER, TCM Management Lobo as TCM Physici ans 2018-12-08 2018-12-08 [facility] 20:00:00 11:53:00 2018-11-27 2018-11-27 Appointmen PAO [facility] [id number] Univers 13:45:00 13:45:00 t; NATALIE ECDENO ity of [place], M.D. [place] Physici ans 2018-11-27 2018-11-27 AppointAILIN Edwards Multispecia [id number] Univers 10:30:00 10:30:00 t; JOSELO VARGAS lty - ity o f SHAOJIE, M.D. Internation Lobo as Milena [facility] ans 2018-11-26 2018-11-26 Appointmen AILIN LINDSEY Non-Invasiv [id number] Univers 13:30:00 13:30:00 t; CÉSAR NON-INVASIV e - [place] ity NON-INVASI E Medical [facility] Physici ans 2018-11-26 2018-11-26 AppointAILIN Hopper Family [id number] Univers 10:30:00 10:30:00 t; Milena JIMENEZ Medicine - ity [facility] BARBARA Medical Physic M.DSukhjinder [facility] 2018-11-01 2018-10-31 Inpatient E [facility] CAR 7525 [facility] 10:09:00 20:37:00 2018-09-09 2018-09-09 AppointAILIN Robertson [id number] Univers 09:20:00 09:20:00 t; JORDI WONG, it y of Milena BACON [place] Physici [facility] 2018-04-23 2018-04-23 AILIN Feliz [facility] [id number] Univers 13:00:00 13:00:00 t; JOSELO VARGAS, Health and it y lele JOSUE M.D. [facility] Efraín Abbott [facility] 2018-03-06 2018-03-06 AppointAILIN Edwards UTP [id number] Univers 12:00:00 12:00:00 t; JOSELO VARGAS ity o f SHAOJIE, M.D. [place] Physici [facility] 2018-02-19 2018-02-19 AILIN Feliz [id number] Univers 11:30:00 11:30:00 t; JOSELO VARGAS ity o f SHAOJIE, M.D. [place] [facility] 2018-02-19 2018-02-19 AILIN Feliz [id number] Univers 11:30:00 11:30:00 t; JOSELO VARGAS ity o f SHAOJIE, M.D. [place] M.Ravi Physici ans 2017-12-26 2017-12-26 Appointmen KARINE SCHMIDT UTP UTP [id number] Univers 14:30:00 14:30:00 t; Milena SCHMIDT M.D. [place] Physici ans 2017-11-30 2017-11-30 Appointmen NAHUM, [facility] Family [id number] Univers 13:00:00 13:00:00 t; Milena JIMENEZ Medicine i ty of [place], [place] Donna JIMENEZ M.D. ans 2017-11-21 2017-11-21 Appointmen AILIN VARGAS Psychiatry [id number] Univers 11:00:00 11:00:00 t; JOSELO VARGAS ity o f SHAOJIE, M.D. [place] M.D. Physici ans 2017-11-06 2017-11-06 Appointmen AILIN VARGAS [facility] [id number] Univers 12:00:00 12:00:00 t; JOSELO VARGAS ity o f SHAOJIE, M.D. [place] M.D. Physici ans 2017-08-30 2017-08-30 AppointAILIN Resendiz Womens [id number] Univers 10:00:00 10:00:00 t; [facility]. [place] Donna PICHARDO M.D. ans 2017-08-06 2017-08-06 Appointmen AILIN VARGAS Psychiatry [id number] Univers 14:00:00 14:00:00 t; JOSELO VARGAS ity o f SHAOJIE, M.D. [place] M.D. Physici ans 2017-08-06 2017-08-06 Appointmen AILIN WONG Cardiology [id number] Univers 10:40:00 10:40:00 t; JORDI WONG it y of [place], M.D. [place] M.D. Physici ans 2017-07-27 2017-07-27 Appointmen AILIN SIDHU Family [id number] Univers 10:30:00 10:30:00 t; Milena JIMENEZ Medicine i ty of [place], [place] Donna JIMENEZ.D. ans 2017-06-26 2017-06-26 Appointmen AILIN VARGAS UTP [id number] Univers 13:30:00 13:30:00 t; JOSELO VARGAS ity o f SHAOJIE, M.D. [facility].D. Physici ans 2017-04-24 2017-04-24 Appointmen AILIN VARGAS UTP [id number] Univers 12:00:00 12:00:00 t; JOSELO VARGAS ity o f SHAOJIE, M.D. [facility].D. Physici ans 2017-01-11 2017-01-11 Appointmen NAHUM, UTP UTP [id number] Univers 13:45:00 13:45:00 t; Milena JIMENEZ it y of [place], [place] Donna JIMENEZ.Ravi ans 2017-01-02 2017-01-02 Appointmen ALICIA, AILIN UTP [id number] Univers 14:00:00 14:00:00 t; JOSELO VARGAS ity o f SHAOJIE, M.D. [facility].DSukhjinder Physici ans 2017-01-02 2017-01-02 Appointmen DA, AILIN UTP [id number] Univers 10:30:00 10:30:00 t; HIRAL ROBERSON ity of [place]IRAL, P.A. [place] P.A. Physici ans 2016-10-03 2016-10-03 Appointmen NAHUM, UTP UTP [id number] Univers 11:00:00 11:00:00 t; Milena JIMENEZ it [place] Donna JIMENEZ MBud ans 2016-09-27 2016-09-27 Appointmen ALICIA, UTP UTP [id number] Univers 13:00:00 13:00:00 t; JOSELO VARGAS ity o f SHAOJIE, M.D. [place] Holly.Ravi Physici ans 2016-09-20 2016-09-20 Appointmen NAHUM, UTP UTP [id number] Univers 11:00:00 11:00:00 t; Milena JIMENEZ it [place] Donna JIMENEZ M.D. ans 2016-09-05 2016-09-05 Appointmen NAHUM, [facility] UTP [id number] Univers 14:00:00 14:00:00 t; Milena JIMENEZ y of [place], [place] Donna JIMENEZ M.D. ans 2016-07-28 2016-07-28 [facility] NAHUM, [facility] UTP [id number] Univers 10:45:00 10:45:00 t; Milena JIMENEZ y of [place], [place] Donna JIMENEZ M.D. ans 2016-07-28 2016-07-28 [facility] ROXANA, [facility] [id number] Univers 09:30:00 09:30:00 t; BLANCA SCHMIDT it y of Milena RIOS M.D. Physici ans 2016-06-28 2016-06-28 [facility] VOWELS, [facility] [id number] Univers 10:00:00 10:00:00 t; VOWELSRAGHAVENDRA i ty of [place]ICIA, M.D. [place] M.D. Physici ans 2016-06-16 2016-06-16 [facility] ROMI [facility] UTP [id number] Univers 14:30:00 14:30:00 t; Milena BRADYENEfraín M.D. Physi ci ans 2016-01-13 2016-01-13 [facility] [place] UTP [id number] Univers 15:00:00 15:00:00 t; Titus calvillo ity of [place] M.D. [place] hen, Rolf, Physi ci M.DSukhjinder ans 2015-11-16 2015-11-16 [facility] [place] UTP [id number] Univers 10:30:00 10:30:00 t; Titus calvillo ity of [place] M.D. [place] hen, Rolf, Physi ci M.DSukhjinder ans 2015-09-29 2015-09-29 [facility] MUNIRA [facility] UTP [id number] Univers 12:00:00 12:00:00 t; , jono QUIROZ M.D., JAMES, Physic i M.D. ans 2015-07-26 2015-07-26 Fiordaliza NESBITT [facility] [id number] Univers 13:30:00 13:30:00 t; Alta GUSMAN M.D. [place] Donna GUSMAN M.D. [facility] 2013-06-20 2013-06-20 Outpatient MHIE MHIE [id number] 11:01:14 11:01:13 2013-05-26 2013-05-26 Outpatient MHIE MHIE [id number] 17:17:23 17:17:20 2013-05-23 2013-05-23 Outpatient MHIE MHIE [id number] 14:45:54 14:45:52 2013-05-21 2013-05-21 Outpatient MHIE MHIE [id number] 11:07:12 11:07:09 2013-04-14 2013-04-14 Outpatient MHIE MHIE [id number] 07:16:36 07:16:33 2013-04-04 2013-04-04 Outpatient MHIE MHIE [id number] 12:01:35 12:01:33 2013-02-19 2013-02-19 Outpatient MHIE MHIE [id number] 13:31:31 13:31:29 2013-02-17 2013-02-17 Outpatient MHIE MHIE [id number] 10:17:10 10:17:08 2012-11-29 2012-11-29 Outpatient MHIE MHIE [id number] 11:16:01 11:15:59 2012-10-17 2012-10-17 Outpatient MHIE MHIE [id number] 17:07:11 17:06:50 2012-09-10 2012-09-10 Outpatient MHIE MHIE [id number] 08:17:46 08:17:25 2012-09-09 2012-09-09 Outpatient MHIE MHIE [id number] 09:02:54 09:02:29 2012-09-08 2012-09-08 Outpatient MHIE MHIE [id number] 20:46:45 20:46:25 2012-09-06 2012-09-06 Outpatient MHIE MHIE [id number] 17:40:08 17:39:47 2012-08-15 2012-08-15 Outpatient MHIE MHIE [id number] 17:54:05 17:53:43 2012-07-12 2012-07-12 Outpatient MHIE MHIE [id number] 08:08:37 08:08:17 2012-06-26 2012-06-26 Outpatient MHIE MHIE [id number] 08:36:23 08:36:02 2012-05-03 2012-05-03 Outpatient MHIE MHIE [id number] 08:49:16 08:48:58 2012-04-19 2012-04-19 Outpatient MHIE MHIE [id number] 13:33:31 13:33:12 2012-04-17 2012-04-17 Outpatient MHIE MHIE [id number] 11:34:55 11:34:36 2012-04-16 2012-04-16 Outpatient MHIE MHIE [id number] 11:31:20 11:31:01 2012-04-05 2012-04-05 Outpatient MHIE MHIE [id number] 16:19:26 16:19:09 2011-12-29 2011-12-29 Outpatient MHIE MHIE [id number] 16:16:00 16:15:58 2011-12-29 2011-12-29 Outpatient MHIE MHIE [id number] 15:30:33 15:30:31 2011-11-14 2011-11-14 Outpatient MHIE MHIE [id number] 07:16:11 07:15:55 2011-11-07 2011-11-07 Outpatient MHIE MHIE [id number] 10:15:51 10:15:49 2011-11-07 2011-11-07 Outpatient MHIE MHIE [id number] 09:45:34 09:45:32 Results Test Description Test Time Test Comments Results Result Comments Source [QL] MICROALBUMIN, RANDOM URINE (W/CREATININE) 2019-10-23 11 :31:00 Test Item Value Reference Range Interpretation Comme nts CREATININE, RANDOM URINE 29 mg/dl 20-275 N (test code = CREATININE, RANDOM URINE) MICROALBUMIN (test code = 0.3 mg/dl N Re ference RangeNot established MICROALBUMIN) MICROALBUMIN/CREATININE 10 {MCG/MG CRE} <30 N T he ADA defines abnormalities in RATIO, RANDOM URINE (test al buminexcretion as follows: code = Category Result (mcg/mg MICROALBUMIN/CREATININE crea tinine) Normal RATIO, RANDOM URINE) <3 0Microalbuminuria 30-299 Clinical albuminuria > OR = 300 The AD A recommends that at least two of threespecimens collected withi n a 3-6 month period beabnorm al before considering a p atient to bewithin a diag nostic category. [facility] Physicians[QL] LIPID [id number] 13:21:00 Test Item Value Reference Range Interpretation Comments CHOLESTEROL, TOTAL; 155 mg/dl <200 N Normal (test code = 2093-3) HDL CHOLESTEROL; 44 mg/dl > OR = 50 Below Low Threshold (test code = 2085-9) TRIGLYCERIDES; 64 mg/dl <150 N Normal (test code = 2571-8) LDL-CHOLESTEROL; 96 {MG/DL N Reference r jeannie: Normal (test code = JAX} <100 Sarmad irable range 61042-7) <100 mg/dL for primary prevent ion; <70 mg/dL for patients with C HD or diabetic patien ts with > or = 2 C HD risk factors. L DL-C is now calculat ed using the Jacque calculation, wh ich is a validated novel method providin g better accuracy than the Friedewald equation in the estimation of L DL-C. Abran SS et al . LEONARDO. 2013;310( 19): 6772-7095 (http://educati on.Leanplum. com/f aq/FHG684) CHOL/HDLC RATIO 3.5 {CALC} <5.0 N (test code = CHOL/HDLC RATIO) NON HDL CHOLESTEROL 111 {MG/DL <130 N For zuly ents with (test code = NON HDL JAX} diabete s plus 1 CHOLESTEROL) major ASCVD ris k factor, treatin g to a non-HDL-C goa l of <100 mg/dL (LDL -C of <70 mg/dL) is considered a therapeutic opt ion. [facility] Physicians[QL] HEPATITIS C [id number] 13:21:00 Test Item Value Reference Range Interpretation Comments HEPATITIS C NON-REACTIVE NON-REACTIVE N ANTIBODY; Normal (test code = 86009-6) SIGNAL TO CUT-OFF 0.02 <1.00 N HCV antibo dy was (test code = SIGNAL non-reac tive. There TO CUT-OFF) is no laborator y evidence of HCV infection. In m ost cases, no furth er action is requi red. However,if rece nt HCV exposure is suspected, a te st for HCV RNA([place] [address]) is will ribeiro. For additional information ple ase refer tohttp://educat ion.Nexgence estdiagnostics. com/fa q/BBA21t6(This link is being provid ed for informational/e ducati onal purposes o nly.) [facility] Physicians[QL] HEMOGLOBIN [id number] 13:21:00 Test Item Value Reference Range Interpretation Comments HEMOGLOBIN A1c; 4.7 {% of <5.7 N For the purp ose of Normal (test code total} screening for the = 4548-4) presence ofdiab etes: <5.7% Con sistent with the absenc e of diabetes5.7-6.4 % Consistent with increased risk for diabetes (prediabetes)> or =6.5% Consistent wit h diabetes This a ssay result is consi stent with a decrease d riskof diabetes. Curre ntly, no consensus exist s regarding use ofhemoglobin A1 c for diagnosis of di abetes in children. Ac cording to [place] Sarah betes Association (ADA)guidelines , hemoglobin A1c <7.0% represents optimalcontrol in non- di abetic patients. Differentmetric s may apply to specif ic patient populat ions. Standards of Me dical Care in Diabete s(ADA). [facility]] URINALYSIS, [id number] 16:20:01 Test Item Value Reference Range Interpretation Comments UA Turbidity (test code = 16296-0) Clear Clear UA Spec Grav (test code = 5810-7) 1.012 <=1.030 UA pH (test code = 5803-2) 7.0 5.0-8.0 UA Protein (test code = 73610-8) Negative Negative UA Glucose (test code = 35575-8) Negative Negative UA Ketones (test code = 87560-6) Negative Negative UA Bili (test code = 5770-3) Negative Negative UA Blood (test code = 5794-3) Negative Negative UA Nitrite (test code = 5802-4) Negative Negative UA Leuk Est (test code = 5799-2) Negative Negative UA RBC (test code = 80925-0) 1 {/HPF} 0-2 UA WBC (test code = 68027-2) <1 0-5 UA Bacteria (test code = 88547-3) Occasional None Seen UA Mucus (test code = 8247-9) Few None Seen UA Sq Epi (test code = 09513-5) Occasional Few UA Color (test code = 5778-6) Ltyellow UROBILINOGEN (test code = 31234-3) <=1.0 0.1-1.0 [facility]] CULTURE, URINE, [id number] 16:20:01 Test Item Value Reference Range Interpretation Comments FINAL REPORT (test code = FINAL No Growth REPORT) [facility]. [facility] - [id number] 00:00:00 Test Item Value Reference Range Interpretation Comments Case (test code = Click ImageLink button N Case) for report. Specimen 1 (test code Click ImageLink button N = Specimen 1) for report. [facility] Pelvis with Pelvis Transvaginal [id number] 12:40:00PROCEDURE INFORMATION:Exam: US Pelvis Complete, Transabdominal and [...] ovarian cyst.Manolo Mckeon MD On 04/29/2019 15:51:15; [id number]--Erim by: Manolo Mckeon MDDictated Date/time: 04/29/19 15:51Electronically Signed by: Manolo Mckeon MD 04/29/2014:51FINAL REPORTUnKane County Human [facility]] CULTURE, URINE, [id number] 03:00:00 Test Item Value Reference Range Interpretation Comments CULTURE (test code See Comment CULTURE, URINE, ROUTINE = CULTURE) MICRO NUMBER : [id number] TEST STATUS: FINAL SPEC IMEN SOURCE: URINE SPECIMEN QUALIT Y: ADEQUATE RESUL T: No GrowthNO COLLECTION DATE RECEIVED. WE HUIZAR VE USEDTHE DATE TH E SPECIMEN WAS RE CEIVED BY THISLABORATORY THE COLLECTION DATE . IF THISIS INCORREC T, PLEASE CONTACT CLIENT SERVICES.PHONE NUMBER: [phone] [facility][O] Urine Dipstick (In Office)2018-12-31 00:00:00 Test Item Value Reference Range Interpretation Comments Glucose (test code = Glucose) negative N LEUKOCYTES (test code = LEUKOCYTES) negative N NITRITE; Normal (test code = negative N 97660-2) UROBILINOGEN; Normal (test code = 0.2 N 06697-5) PROTEIN; Normal (test code = negative N 24984-1) pH (test code = pH) 5.5 N URINE BLOOD; Normal (test code = trace N 32957-4) SPECIFIC GRAVITY; Normal (test code 1.030 N = 2965-2) KETONES; Normal (test code = negative N 46657-3) BILIRUBIN; Normal (test code = negative N 70499-6) [facility]] URINALYSIS, [id number] 08:48:00 Test Item Value Reference Range Interpretation Comments COLOR; Normal (test code = 5778-6) YELLOW YELLOW N APPEARANCE (test code = APPEARANCE) CLEAR CLEAR N SPECIFIC GRAVITY; Normal (test code 1.015 1.001-1.035 N = 2965-2) PH; Normal (test code = 2756-5) 8.0 5.0-8.0 N GLUCOSE; Normal (test code = NEGATIVE NEGATIVE N 1547-9) BILIRUBIN; Normal (test code = NEGATIVE NEGATIVE N 88306-0) KETONES; Normal (test code = NEGATIVE NEGATIVE N 37147-3) OCCULT BLOOD; Abnormal (test code = 3+ NEGATIVE A 24393-8) PROTEIN; Abnormal (test code = 1+ NEGATIVE A 03587-2) NITRITE; Normal (test code = NEGATIVE NEGATIVE N 57755-1) LEUKOCYTE ESTERASE (test code = NEGATIVE NEGATIVE N LEUKOCYTE ESTERASE) WBC; Normal (test code = 6690-2) 0-5 < OR = 5 N RBC; Abnormal (test code = 789-8) 3-10 < OR = 2 A SQUAMOUS EPITHELIAL CELLS (test 0-5 < OR = 5 code = 55436-6) BACTERIA; Abnormal (test code = FEW NONE SEEN A 630-4) HYALINE CAST; Normal (test code = NONE SEEN NONE SEEN N 07275-9) [facility]] CULTURE, URINE, [id number] 08:48:00 Test Item Value Reference Range Interpretation Comments CULTURE (test See Comment A CULTURE, URINE , ROUTINE code = CULTURE) MICRO NUMB ER: [id number] TEST STATUS: FINAL SPECI MEN SOURCE: URINE [...] cefprozil, cefu roxime, cephalexin a nd loracarbef. [facility]] LIPID [id number] 11:26:00 Test Item Value Reference Range Interpretation Comments CHOLESTEROL, TOTAL; 187 mg/dl <200 N Normal (test code = 3-3) HDL CHOLESTEROL; 53 mg/dl >50 N Normal (test code = 5-9) TRIGLYCERIDES; 74 mg/dl <150 N Normal (test code = 2571-8) LDL-CHOLESTEROL; 117 {MG/DL Reference r jeannie: Above High Threshold JAX} <100 De sirable range (test code = <100 mg/[place] [address]-4) primary prevent ion; <70 mg/dL for patients with C HD or diabetic patien ts with > or = 2 C HD risk factors. L DL-C is now calculat ed using the Abran-Shira calculation, wh ich is a validated novel method providin g better accuracy than the Friedewald equation in the estimation of L DL-C. Abran SS et al . LEONARDO. 2013;310( 19): 4682-6116 ([email or web address]://[email or web address] [email or web address] [email or web address]) CHOL/HDLC RATIO 3.5 {CALC} <5.0 N (test code = CHOL/HDLC RATIO) NON HDL CHOLESTEROL 134 {MG/DL <130 For zuly ents with (test code = NON HDL JAX} diabete s plus 1 CHOLESTEROL) major ASCVD ris k factor, treatin g to a non-HDL-C goa l of <100 mg/dL (LDL -C of <70 mg/dL) is considered a therapeutic opt ion. [facility]] CMP [id number] 11:26:00 Test Item Value Reference Range Interpretation [...] mg/dl 0.2-1.2 N Normal (test code = 54476-4) ALKALINE PHSPHATASE 58 u/l 33-115 N (test code = ALKALINE PHSPHATASE) AST; Normal (test 18 u/l 10-30 N code = 1916-6) ALT; Normal (test 12 u/l 6-29 N code = 1742-6) [facility]] TSH, 3RD GENERATION W/REFLEX TO FT4 2018-09-03 11:26:00 Test Item Value Reference Range Interpretation Comments TSH, 3RD GENERATION 0.89 {MIU/L} N Referenc e Range W/REFLEX TO FT4 (test > or code = TSH, 3RD = 20 Years GENERATION W/REFLEX 0.40-4.5 0 TO FT4) Range s First trim chantel 0.26-2.66 Second trimest er 0.55-2.73 Third trimester 0.43-2.91 [facility]] URINALYSIS, [id number] 16:42:01 Test Item Value Reference Range Interpretation Comments UA Turbidity (test code = 13394-1) Clear Clear UA Spec Grav (test code = 5810-7) 1.003 <=1.030 UA pH (test code = 5803-2) 6.0 5.0-8.0 UA Protein (test code = 23749-5) Negative Negative UA Glucose (test code = 69219-8) Negative Negative UA Ketones (test code = 91789-4) Negative Negative UA Bili (test code = 5770-3) Negative Negative UA Blood (test code = 5794-3) Negative Negative UA Nitrite (test code = 5802-4) Negative Negative UA Leuk Est (test code = 5799-2) Negative Negative UA WBC (test code = 49834-6) <1 0-5 UA Bacteria; Abnormal (test code = Many None Seen A 53065-3) UA Sq Epi (test code = 04692-2) Occasional Few UA Color (test code = 5778-6) Ltyellow UROBILINOGEN (test code = 91091-6) <=1.0 0.1-1.0 [facility]] CULTURE, URINE, [id number] 16:42:01 Test Item Value Reference Range Interpretation Comments FINAL REPORT (test Specimen contains 3 or code = FINAL more potential pathogens; REPORT) recommend correlation withurinalysis; if catheterized specimen recommend removal and recollection. Ifclinical situation warrants please call the laboratory for further testing. COMicrobiology [phone]. [facility][O] Urine Dipstick (In Office)2017-11-30 13:20:00 Test Item Value Reference Range Interpretation Comments Glucose (test code = Glucose) N N LEUKOCYTES (test code = LEUKOCYTES) N N NITRITE; Normal (test code = 58714-8) N N UROBILINOGEN; Normal (test code = N N 80264-1) PROTEIN; Normal (test code = 76070-6) N N pH (test code = pH) 6.0 N URINE BLOOD; Normal (test code = N N 53273-1) SPECIFIC GRAVITY; Normal (test code = 1.015 N 2965-2) KETONES; Normal (test code = 03398-9) N N BILIRUBIN; Normal (test code = N N 48794-0) COLOR URINE; Normal (test code = YELLOW N 5778-6) APPEARANCE; Normal (test code = CLEAR N 5767-9) [facility][O] Urine Dipstick (In Office)2017-08-30 10:11:00 Test Item Value Reference Range Interpretation Comments LEUKOCYTES (test code = LEUKOCYTES) Negative N NITRITE; Normal (test code = Negative N 91612-6) PROTEIN; Normal (test code = Negative N 36189-9) URINE BLOOD; Abnormal (test code = Trace A 49050-0) KETONES; Normal (test code = Negative N 62874-0) GLUCOSE; Normal (test code = 1547-9) Negative N [facility]
--- OUTSIDE RECORDS SUMMARY | 2020-02-02 12:29 | XMS REPORT | Summary of Care ---
:1985 Author Name Kieran FLARE MAKER Address Unavailable Unavailable , Care Team Providers Name Role Phone MARILIA Abbott Unavailable Unavailable NAHUM Abbott Unavailable Unavailable ALICIA Abbott Unavailable Unavailable Kieran MAXWELL Unavailable Unavailable Bethany MARX Unavailable Unavailable Aislinn Abbott Unavailable Unavailable BETHANY Abbott Unavailable Unavailable NAHUM MARX UT Unavailable Unavailable ALICIA MARX Unavailable Unavailable PAO MARX UT Unavailable Unavailable HUGO MARX Unavailable Unavailable MARILIA MARX Unavailable Unavailable HOMER MARX UT Unavailable Unavailable CESILIA MARX Unavailable Unavailable LOY MARX Unavailable Unavailable LENIN MARX Unavailable Unavailable Unavailable Unavailable Unavailable Functional Status [...] Length Of Menstrual Periods St atus: Active Paroxysmal supraventricular tachycardia (427.0, I47.1) Status: Active Palpitations (785.1, R00.2) Status: Acti ve Irregular menstruation (626.4, N92.6) St atus: Active Heavy menses (626.2, N92.0) Status: Acti ve Iron deficiency anemia due to chronic blood loss (280.0, D50 .0) Status: Active Postoperative visit (V58.49, Z48.89) Sta tus: Active Low back pain (724.2, M54.5) Status: Act mari Back pain (724.5, M54.9) Status: Active Essential (primary) hypertension (401.9, I10) Status: Active Schizoaffective disorder, depressive type (295.70, F25.1) Status: Active Medications Name Dates Details Clopidogrel Bisulfate 75 MG Oral Tablet TAKE 1 TABLET DAILY. PATIENT NEEDS AP POINTMENT FOR ADDITIONAL REFILLS Quantity: 90 Refills: 0 BARBARA SIDHU M.D. [...] AND 1/2 TAB AT BEDTIME NEEDED Quantity: 180 Refills: 1 ALICIA AbbottJOSELO Start : 02-Feb-2015 Active Plavix TABS Refills: 0 Active Nystatin-Triamcinolone 148122-3.1 UNIT/GM-% External Cream APPLY SPARINGLY TO AFFECTED AREA(S) TWICE DAILY Quantity: 1 Refills: 0 CAPELLAN Milena GAZRAS Start : 31-Dec-2018 Active Corlanor 7.5 MG Oral Tablet 1 tablet PO BID Refills: 0 NAHUM M.D., BARBARA Start : 27-Jun-2019 Active Fluticasone Propionate 50 MCG/ACT Nasal Suspension USE 2 SPRAYS IN EACH NOSTRIL ONCE DAILY Quantity: 1 Refills: 1 NAHUM M.D., BARBARA Start : 27-Jun-2019 Active 16 GM Bottle Methocarbamol 500 MG Oral Tablet TAKE 1 TABLET DAILY Quantity: 30 Refills: 0 NAHUM M.D., BARBARA Start : 20-Oct-2019 Active Allergies and Adverse Reactions Name Dates [...] Z87.0 9) Status: Resolved History of acute otitis media (V12.49, Z86.69) Status: Resolved History of acute pyelonephritis (V13.02, Z87.440) Status: Resolved History of Acute recurrent sinusitis (461.9, J01.91) Status: Resolved History of Acute right-sided low back pa in with left-sided sciatica (724.2, M54.42) Status: Resolved History of amenorrhea (V13.29, Z87.42) [...] Details Influenza #1 on: 25-Feb-2007 Lot #: [id number] Td on: 25-Feb-2007 Lot #: [id number] Influenza on: 31-Dec-2007 Lot #: [id number] Influenza on: 03-Dec-2009 Lot #: [id number] Influenza on: 19-Dec-2010 Lot #: [id number] Fluzone Quadrivalent 0.5 ML Intramuscular Suspension on: Dec-2015 Lot #: [id number] Fluzone Quadrivalent 0.5 ML Intramuscular Suspension on: Dec-2016 Lot #: [id number] Fluzone Quadrivalent 0.5 ML Intramuscular Suspension on: Lot #: [id number] Fluzone Quadrivalent 0.5 ML Intramuscular Suspension P refilled Syringe on: 20-Dec-2018 Lot #: [id number] Family History Name Dates Details Family history [...] Planned Encounters Appointment; BARBARA SIDHU M.D. On: 19-Jan-2020 11: 10 Appointment; JOSELO VARGAS M.D. On: 14-Apr-2020 11:30 Interventions Provided Medication ChangesClopidogrel Bisulfate 75 MG Oral Tablet - Renew Instructions Name Dates Details Instructions not documented Encounters Appointment; JOSELO VARGAS M.D. On: 19-Feb-2018 11:30 Encounter Diagnosis: Problem not documented Appointment; JOSELO VARGAS M.D. On: 19-Feb-2018 11:30 Encounter Diagnosis: Problem not documented Appointment; JOSELO VRAGAS M.D. On: 06-Mar-2018 12:00 Encounter Diagnosis: Problem [...] Encounter Diagnosis: Problem not documented Appointment; [facility] On: 20-Dec-2018 11:30 Encounter Diagnosis: [...] 11 :30 Encounter Diagnosis: Problem not documented Appointment; CODEY PHELPS M.D. On: 15-Sep-2019 13:30 Encounter Diagnosis: Problem not documented Appointment; SLICK DUNAWAY M.D. On: 19-Sep-2019 9:00 Encounter Diagnosis: Problem not documented Appointment; BARBARA SIDHU M.D. On: 20-Oct-2019 10: 10 Encounter Diagnosis: Problem not documented Appointment; ABIEL HALL NP On: 06-Nov-2019 10 :30 Encounter Diagnosis: Problem not documented Appointment; JOSELO VARGAS M.D. On: 13-Nov-2019 13:00 Encounter Diagnosis: Problem not documented Appointment; JOSELO VARGAS M.D. On: 18-Nov-2019 11:00 Encounter Diagnosis: Problem not documented
--- OUTSIDE RECORDS SUMMARY | 2020-02-02 12:29 | XMS REPORT | Summary of Care ---
:1985 Author Name ALICIA Abbott Address Unavailable Unavailable , Care Team Providers Name Role Phone MARILIA Abbott Unavailable Unavailable NAHUM Abbott Unavailable Unavailable ALICIA Abbott Unavailable Unavailable Bethany MARX Unavailable Unavailable Aislinn [...] BEDTIME NEEDED Quantity: 180 Refills: 1 ALICIA Abbott JOSELO Start : 02-Feb-2015 Active Plavix TABS Refills: 0 Active Nystatin-Triamcinolone 057674-8.1 UNIT/GM-% External Cream APPLY SPARINGLY TO AFFECTED AREA(S) TWICE DAILY Quantity: 1 Refills: 0 MARILIA Abbott MARINO Start : 31-Dec-2018 Active Corlanor 7.5 MG Oral Tablet 1 tablet PO BID Refills: 0 NAHUM M.D., BARBARA Start : 27-Jun-2019 Active Fluticasone Propionate 50 MCG/ACT Nasal Suspension USE 2 SPRAYS IN EACH NOSTRIL ONCE DAILY Quantity: 1 Refills: 1 NAHUM Abbott, BARBARA Start : 27-Jun-2019 Active 16 GM Bottle Methocarbamol 500 MG Oral Tablet TAKE 1 TABLET DAILY Quantity: 30 Refills: 0 NAHUM Abbott, BARBARA Start : 20-Oct-2019 Active Allergies and [...] B37.9) Status: Resolved Procedures Procedure Dates Details [QL] CMP W/EGFR Date: 20-Oct-2019 MRI Spine lumbar wo contrast 42155 Date: 20-Oct-2019 History of Appendectomy Completed History of Cholecystectomy Completed Immunization Name Dates Details Influenza #1 on: 25-Feb-2007 Lot #: [id number] Td on: 25-Feb-2007 Lot #: [id number] Influenza on: 31-Dec-2007 Lot #: [id number] Influenza on: 03-Dec-2009 Lot #: [id number] Influenza on: 19-Dec-2010 Lot #: [id number] Fluzone Quadrivalent 0.5 ML Intramuscular Suspension on: Dec-2015 Lot #: [id number] Fluzone Quadrivalent 0.5 ML Intramuscular Suspension on: Dec-2016 Lot #: [id number] Fluzone Quadrivalent 0.5 ML Intramuscular Suspension on: Lot #: [id number] Fluzone Quadrivalent 0.5 ML Intramuscular Suspension P refilled Syringe on: 20-Dec-2018 Lot #: [id number] Family History Name Dates Details Family history [...] to report Results Date Description Value Details [id number] [QL] LIPID PANEL CHOLESTEROL, TOTAL 155 mg/dl (Normal) Range: <2 00 HDL CHOLESTEROL 44 mg/dl (Below low Range: > OR = 50 threshold) TRIGLYCERIDES 64 mg/dl (Normal) Range: <150 LDL-CHOLESTEROL 96 {MG/DL__CAL} (Normal) Commen ts: Reference range: <100 Desirable range <100 mg/dL for primary prevention; <70 mg/dL for patients with CHD or diabetic patients with > or = 2 CHD risk factors. LDL-C is now calculated using t he Abran-Hopkin s calculation, which is a validated novel method providing better accuracy than the Friedewald equation in the estimation of LDL-C. Abran SS et al. LEONARDO. 2013;310(19): 3350-5751 (http ://education.[employer]/faq/XVB617) CHOL/HDLC RATIO 3.5 {CALC} (Normal) Range: <5.0 NON HDL CHOLESTEROL 111 {MG/DL__CAL} (Normal) R jeannie: <130 Comments: For pa jacques with diabetes plus 1 major ASCVD risk factor, treating to a non-HDL-C goal of <100 mg/dL (LDL-C of <70 mg/dL) is considered a therapeutic option. :21 [QL] HEPATITIS C ANTIBODY Comments: REPO RT COMMENT:FASTING:NOPATIENT UNABLE TO VOID; ADVISED TO RETURN FOR COLLECTION. HEPATITIS C ANTIBODY NON-REACTIVE (Normal) Ran ge: NON-REACTIVE SIGNAL TO CUT-OFF 0.02 (Normal) Range: <1.00 Comments: HCV an tibody was non-reactive. There is no laboratory evidence of HCV infection. In most cases, no further action is required. However,if recent HCV exposure is suspected, a test for HCV RNA(test code 3 5645) is suggest ed. For additional information please refer tohttp://education.[employer]tera/faq/VSE17n2(This link is being provided for informational/educational purposes only.) :21 [QL] HEMOGLOBIN A1c Comments: REPORT COM MENT:FASTING:NOPATIENT UNABLE TO VOID; ADVISED TO RETURN FOR COLLECTION. HEMOGLOBIN A1c 4.7 {%_of_total} (Normal) Range : <5.7 Comments: For th e purpose of screening for the presence ofdiabetes: <5.7% Consistent with the absence of diabetes5.7-6.4% Consistent with increased risk for diabetes (prediabetes)> or =6 .5% Consistent with diabetes This assay result is consistent with a decreased riskof diabetes. Currently, no consensus exists regarding use ofhemoglobin A1c for diagnosis of diabetes in children. Accor ding to [place] Diabetes Association (ADA)guidelines, hemoglobin A1c <7.0% represents optimalcontrol in non- diabetic patients. Differentmetrics may apply to specific patient populations. Standards of Medical Care in Diabetes(ADA). [id number] [QL] MICROALBUMIN, RANDOM URINE Comments : Reference RangeNot establishedREPORT COMMENT:SPLIT 10/22/2019 FROM [id number] (W/CREATININE) CREATININE, RANDOM URINE 29 mg/dl (Normal) Rang e: 20-275 MICROALBUMIN 0.3 mg/dl (Normal) Comments: Re ference RangeNot established MICROALBUMIN/CREATININE 10 {MCG/MG_CRE} Range: <30 RATIO, RANDOM URINE (Normal) Comments: Th e ADA defines abnormalities in albuminexcretion as follows: Category Result (mcg/mg creatinine) Normal <30Microalbuminuria 30-299 Clinical albuminuria > OR = 300 The ADA rec ommends that at least two of threespecimens collected within a 3-6 month period beabnormal before considering a patient to bewithin a diagnostic category. Plan of Care Name Dates Details Planned Observations Planned Goals not documented Planned Encounters Appointment; JOSELO VARGAS M.D. On: 14-Apr-2020 11:30 Interventions Provided PlanIntellectual disability, schizoaffective disorder/ increased AH related infection (UTI and URI), associated with poor sleep, agitation. Has been stable. Psych symptoms responded to Abilify to 5mg tid, and add 5mg bedtime as needed for psychosis, rarely takes PRN. currently stable. will continue, No EPS,TD reported today. May take Abilify 5mg AM +10mg [...] documented Encounters Appointment; JOSELO VARGAS M.D. On: 21-Nov-2017 11:00 [...] Diagnosis: Problem not documented Appointment; TRINY GARCIA [facility] On: 20-Dec-2018 11:30 Encounter Diagnosis: [...] Encounter Diagnosis: Problem not documented Appointment; ABIEL AHLL NP On: 12-Aug-2019 11 :30 Encounter Diagnosis: [...]
--- OUTSIDE RECORDS SUMMARY | 2020-02-02 12:30 | XMS REPORT | Summary of Care ---
[...] vaccine need (V04.81, Z23) Status: A ctmari [employer] Of Computerized Data Status: [...] Active Plavix TABS Refills: 0 Active Nystatin-Triamcinolone 940598-2.1 UNIT/GM-% External Cream APPLY SPARINGLY TO AFFECTED AREA(S) TWICE DAILY Quantity: 1 Refills: 0 MARINO CAPELLAN M.D. Start : 31-Dec-2018 Active Corlanor 7.5 MG Oral Tablet 1 tablet PO BID Refills: 0 NAHUM M.DSukhjinder, BARBARA Start : 27-Jun-2019 Active Fluticasone Propionate 50 MCG/ACT Nasal Suspension USE 2 SPRAYS IN EACH NOSTRIL ONCE DAILY Quantity: 1 Refills: 1 NAHUM M.Ravi, BARBARA Start : 27-Jun-2019 Active 16 GM Bottle Methocarbamol 500 MG Oral Tablet TAKE 1 TABLET DAILY Quantity: 30 Refills: 0 NAHUM M.Ravi, BARBARA Start : 20-Oct-2019 Active Allergies and [...] Details Influenza #1 on: 25-Feb-2007 Lot #: [id number] Td on: 25-Feb-2007 Lot #: [id number] Influenza on: 31-Dec-2007 Lot #: [id number] Influenza on: 03-Dec-2009 Lot #: [id number] Influenza on: 19-Dec-2010 Lot #: [id number] Fluzone Quadrivalent 0.5 ML Intramuscular Suspension on: Dec-2015 Lot #: [id number] Fluzone Quadrivalent 0.5 ML Intramuscular Suspension on: Dec-2016 Lot #: [id number] Fluzone Quadrivalent 0.5 ML Intramuscular Suspension on: Lot #: [id number] Fluzone Quadrivalent 0.5 ML Intramuscular Suspension P refilled Syringe on: 20-Dec-2018 Lot #: [id number] Family History Name Dates Details Family history [...] Diagnosis: Problem not documented Appointment; [facility] On: 20-Dec-2018 11:30 Encounter Diagnosis: Problem not [...]
--- OUTSIDE RECORDS SUMMARY | 2020-02-02 12:31 | XMS REPORT | Summary of Care ---
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 PATIENT NEEDS AP POINTMENT FOR ADDITIONAL REFILLS Quantity: 90 Refills: 1 BARBARA SIDHU M.D. [...] Active Plavix TABS Refills: 0 Active Nystatin-Triamcinolone 774763-3.1 UNIT/GM-% External Cream APPLY SPARINGLY TO AFFECTED AREA(S) TWICE DAILY Quantity: 1 Refills: 0 CAPELLANMARINO LAU M.D. Start : 31-Dec-2018 Active Corlanor 7.5 MG Oral Tablet 1 and half tablet PO BID Refills: 0 NAHUM M.Ravi, BARBARA Start : 27-Jun-2019 Active Fluticasone Propionate [...] Details Influenza #1 on: 25-Feb-2007 Lot #: [id number] Td on: 25-Feb-2007 Lot #: [id number] Influenza on: 31-Dec-2007 Lot #: [id number] Influenza on: 03-Dec-2009 Lot #: [id number] Influenza on: 19-Dec-2010 Lot #: [id number] Fluzone Quadrivalent 0.5 ML Intramuscular Suspension on: Dec-2015 Lot #: [id number] Fluzone Quadrivalent 0.5 ML Intramuscular Suspension on: Dec-2016 Lot #: [id number] Fluzone Quadrivalent 0.5 ML Intramuscular Suspension on: Lot #: [id number] Fluzone Quadrivalent 0.5 ML Intramuscular Suspension P refilled Syringe on: 20-Dec-2018 Lot #: [id number] Family History Name Dates Details Family history [...] Observations Planned Goals not documented Planned Encounters Infectious Disease Referral Appointment; CARISA MILTON APRN On: 02-Feb-2020 9:00 Appointment; JOSELO VARGAS M.D. On: 14-Apr-2020 11:30 [...] Encounter Diagnosis: Problem not documented [facility]ment[facility] On: 20-Dec-2018 11:30 Encounter Diagnosis: Problem [...] 18-Nov-2019 11:00 Encounter Diagnosis: Problem not documented Appointment; BARBARA SIDHU M.D. On: 19-Jan-2020 11: 10 Encounter Diagnosis: Problem not documented
--- OUTSIDE RECORDS SUMMARY | 2020-02-02 12:31 | XMS REPORT | Summary of Care ---
:1985 Author Name Tai Address [facility] Unavailable , Care Team Providers Name Role Phone MARILIA Abbott Unavailable Unavailable NAHUM Abbott Unavailable Unavailable ALICIA Abbott Unavailable Unavailable Bethany MARX Unavailable Unavailable KARINE KHANNAP Unavailable Unavailable Aislinn Abbott Unavailable Unavailable BETHANY [...] Active Plavix TABS Refills: 0 Active Nystatin-Triamcinolone 722346-8.1 UNIT/GM-% External Cream APPLY SPARINGLY TO AFFECTED AREA(S) TWICE DAILY Quantity: 1 Refills: 0 CAPELLAN M.D., GAZRAS Start : 31-Dec-2018 Active Corlanor 7.5 MG Oral Tablet 1 and half tablet PO BID Refills: 0 NAHUM M.D., [...] Details Influenza #1 on: 25-Feb-2007 Lot #: [id number] Td on: 25-Feb-2007 Lot #: [id number] Influenza on: 31-Dec-2007 Lot #: [id number] Influenza on: 03-Dec-2009 Lot #: [id number] Influenza on: 19-Dec-2010 Lot #: [id number] Fluzone Quadrivalent 0.5 ML Intramuscular Suspension on: Dec-2015 Lot #: [id number] Fluzone Quadrivalent 0.5 ML Intramuscular Suspension on: Dec-2016 Lot #: [id number] Fluzone Quadrivalent 0.5 ML Intramuscular Suspension on: Lot #: [id number] Fluzone Quadrivalent 0.5 ML Intramuscular Suspension P refilled Syringe on: 20-Dec-2018 Lot #: [id number] Family History Name Dates Details Family history [...] Planned Goals not documented Planned Encounters Appointment; CARISA MILTON APRN On: 02-Feb-2020 9:00 Appointment; JOSELO VARGAS M.D. On: 14-Apr-2020 11:30 Interventions Provided Medication ChangesClopidogrel Bisulfate 75 MG Oral Tablet - Renew Follow-ups/ReferralsInfectious Disease Referral; To Be Done: 19 Jan 2020 Instructions Name Dates Details Instructions not documented [...] Problem not documented Appointment; [facility] On: 20-Dec-2018 11:30 Encounter [...]
[2020-02-02 13:23] LABS: Urine Blood NEGATIVE (NEG); Urine Glucose NEGATIVE (NEG); Urine Protein NEGATIVE (NEG); Urine Specific Gravity 1.015 (1.005-1.030)
[2020-02-02 13:27] LABS: Absolute Lymphocytes (CBC) 0.8 K/uL (0.7-4.9); Basophils % 1.2 % (0-1.3); Hematocrit 36.5 % (36.0-45.0); MPV 8.9 fL (7.6-11.3); RBC Red Blood Cell Count 4.11 M/uL (3.86-4.86)
[2020-02-02 13:49] LABS: ALT/SGPT 26 U/L (12-78); AST/SGOT 23 U/L (15-37); Albumin 4.1 g/dL (3.4-5.0); Alkaline Phosphatase 66 U/L (45-117); BUN Blood Urea Nitrogen 8 mg/dL (7-18); Bicarbonate 30 mmol/L (21-32); Bilirubin Direct 0.2 mg/dL (0-0.2); Bilirubin Total 0.6 mg/dL (0.2-1.0); Glucose Level 83 mg/dL (74-106); Lipase 67 U/L (73-393); Potassium 3.8 mmol/L (3.5-5.1); Protein, Total 7.9 g/dL (6.4-8.2); Sodium Level 142 mmol/L (136-145)
[2020-02-02 15:00] LABS: Urine Bacteria NONE SEEN /HPF (<20); Urine RBC NONE SEEN /HPF (NONE SEEN)
[2020-02-02 15:01] LABS: Urine Culture Reflex Order NOT NEEDED; Urine Mucus 1+ /HPF (NONE SEEN)
--- NOTE | 2020-02-02 16:30 | ER ---
Nurse's Notes [facility] Name: Jenn Horan Age: 35 yrs Sex: Female : 1985 Arrival Date: 02/02/2020 Time: 12:03 Bed 18 Private MD: Diagnosis: Urinary tract infection, site not specified Presentation: 02/01 12:08 Chief complaint: Parent and/or Guardian states: Mother: She has recurrent UTI x 1 year. ca1 A few days ago, started with cramps, dizziness, L flank pain. Jenn has mental issues and when she has UTI, it comes out more. She has POTS, so when she's up this morning, her HR went up to 145, but it goes back to normal when she's sitting. Denies burning sensation, urinary urgency and frequency at this time. But when she has UTI she normally gets these symptoms of back pain, confusion, cramps. Denies fever. Coronavirus screen: Client denies travel out of the [place] in the last 14 days. At this time, the client does not indicate any symptoms associated with coronavirus-19. Ebola Screen: Patient negative for fever greater than or equal to 101.5 degrees Fahrenheit, and additional compatible Ebola Virus Disease symptoms Patient denies exposure to infectious person. Patient denies travel to an Ebola-affected area in the 21 days before illness onset. No symptoms or risks identified at this time. Initial Sepsis Screen: Does the patient meet any 2 criteria? No. Patient's initial sepsis screen is negative. Does the patient have a suspected source of infection? No. Patient's initial sepsis screen is negative. Risk Assessment: Do you want to hurt yourself or someone else? Patient reports no desire to harm self or others. Onset of symptoms was February 02, 2020. 12:08 Method Of Arrival: Wheelchair ca1 12:08 Acuity: SVETLANA 3 ca1 CLIENT SERVICES ANALYST: 12:14 LMP N/A - Hysterectomy ca1 Historical: - Allergies: 12:14 Biaxin; ca1 12:14 Cefaclor; ca1 12:14 Demerol; ca1 12:14 hydromorphone HCl; ca1 12:14 meperidine HCl; ca1 12:14 Morphine; ca1 12:14 NSAIDS (Non-Steroidal Anti-Inflammatory Drug); ca1 12:14 PENICILLINS; ca1 - Home Meds: 12:14 Abilify 15 mg Oral tab once daily [Active]; Corlanor 7.5 mg Oral tab 1 tab 2 times per ca1 day [Active]; fluoxetine 20 mg Oral tab 1 tab once daily [Active]; Meclizine Oral [Active]; Plavix 75 mg Oral tab once daily [Active]; - PMHx: 12:14 Asthma; Cerebral Palsy; Erythromelalgia; GERD; Hearing Loss; Incomplete R BBB; POTS ca1 "when having an infection"; reactive airway; - PSHx: 12:14 Cholecystectomy; lower right lobectomy; right ovarian tumor removed; ca1 12:15 Hysterectomy; ca1 - Immunization history:: Adult Immunizations up to date, Flu vaccine is up to date. - Social history:: Smoking status: Patient denies any tobacco usage or history of. Screenin:59 Abuse screen: Denies threats or abuse. Nutritional screening: No deficits noted. ll2 Tuberculosis screening: No symptoms or risk factors identified. Fall Risk Ambulatory Aid- None/Bed Rest/Nurse Assist (0 pts). Gait- Weak (10 pts.). Mental Status- Overestimates/Forgets Limitations (15 pts.). Total Mckeon Fall Scale indicates Low Risk Score (25-44 pts). Fall prevention measures have been instituted. Placed close to Nursing Station Family Present and informed to notify staff if they need to leave bedside. Assessment: 12:57 General: Appears in no apparent distress. Behavior is calm, cooperative, appropriate ll2 for age. Pain: Denies pain. Neuro: Level of Consciousness is awake, alert, Oriented to person, place, time, situation. Cardiovascular: Capillary refill < 3 seconds Patient's skin is warm and dry. Respiratory: Airway is patent Respiratory effort is even, unlabored, Respiratory pattern is regular, symmetrical. GI: Bowel sounds present X 4 quads. Abd is soft and non tender X 4 quads. : Parent/caregiver report the patient having states pt has a hx of UTI and typically has a slight AMS when they happen. EENT: No signs and/or symptoms were reported regarding the EENT system. Derm: Skin is intact, is healthy with good turgor, Skin is dry, Skin is pink, warm \\T\\ dry. Skin temperature is warm. Musculoskeletal: Circulation, motion, and sensation intact. Range of motion: limited in all extremities. 13:00 Reassessment: aided ambulation to bedside commode. ll2 14:00 Reassessment: Dr. Huntley at bedside, VO for 5 mg [place] PO. jl7 15:16 Reassessment: Patient and/or family updated on plan of care and expected duration. Pain ll2 level reassessed. Patient is alert, oriented x 3, equal unlabored respirations, skin warm/dry/pink. family updated, awaiting ERD reevaluation and follow up plan. 16:20 Reassessment: Patient and/or family updated on plan of care and expected duration. Pain ll2 level reassessed. Patient is alert, oriented x 3, equal unlabored respirations, skin warm/dry/pink. Vital Signs: 12:08 BP 111 / 72; Pulse 69; Resp 17 S; Temp 97.6(TE); Pulse Ox 99% on R/A; Weight 86.18 kg ca1 (R); Height 5 ft. 8 in. (172.72 cm) (R); 13:01 BP 125 / 81; Pulse 70; Resp 16; Temp 98; Pulse Ox 99% on R/A; ll2 14:00 BP 180 / 80; Pulse 82; Resp 20; Pulse Ox 100% on R/A; ll2 12:08 Body Mass Index 28.89 (86.18 kg, 172.72 cm) ca1 ED Course: 12:03 Patient arrived in ED. ag5 12:13 Triage completed. ca1 12:14 Arm band placed on right wrist. ca1 12:56 Meghan Aaron, ELENA is Primary Nurse. ll2 13:03 Simon Huntley MD is Attending Physician. kdr 13:10 Initial lab(s) drawn, by in, sent to lab. Inserted saline lock: 20 gauge in left jl7 antecubital area, using aseptic technique. Blood collected. 13:10 Urine collected: clean catch specimen. jl7 16:45 No provider procedures requiring assistance completed. IV discontinued, intact, ll2 bleeding controlled, No redness/swelling at site. Pressure dressing applied. 16:46 Patient has correct armband on for positive identification. Bed in low position. Call ll2 light in reach. Side rails up X 1. Pulse ox on. NIBP on. Administered Medications: 14:15 Drug: [place] (7.5 mg-325 mg) 1 tabs Route: PO; jl7 14:45 Follow up: Response: No adverse reaction; Pain is decreased jl7 16:39 Drug: LevaQUIN 750 mg Route: PO; ll2 16:39 Follow up: Response: Medication administered at discharge. ll2 Outcome: 16:29 Discharge ordered by . kdr 16:45 Discharged to home via wheelchair, with family. ll2 16:45 Condition: stable 16:45 Discharge instructions given to patient, family, Instructed on discharge instructions, follow up and referral plans. medication usage, Demonstrated understanding of instructions, follow-up care, medications. 16:47 Patient left the ED. ll2 17:52 Patient left the ED. jl7 Signatures: Simon Huntley MD MD kdr Leal, Jahala RN RN jl7 Hannah Campa RN RN [facility] Jose Armando [facility] Meghan Aaron RN RN ll2
--- NOTE | 2020-02-02 16:30 | EDPHYS ---
Physician Documentation [facility] Name: Jenn Horan Age: 35 yrs Sex: Female : 1985 Arrival Date: 02/02/2020 Time: 12:03 Bed 18 Private MD: ED Physician Simon Huntley HPI: 02/01 18:57 This 35 yrs old Female presents to ER via Wheelchair with complaints of Flank kdr Pain, Abdominal Cramping, Head Pressure. 18:57 The patient complains of pain in the left low back and left mid back. The pain does not kdr radiate. Onset: The symptoms/episode began/occurred gradually, 1 week(s) ago. Modifying factors: The symptoms are alleviated by nothing. the symptoms are aggravated by nothing. Mom states that when the patient gets a UTI, her POTS s/s worsen and are harder to control. She had an appointment scheduled this morning with Urology but she was too unstable with her POTS at the time to go to the office. She is now back to baseline but still c/o flank pain. The patient has not had a fever or other related s/s. Associated signs and symptoms: The patient has no apparent associated signs or symptoms, Pertinent positives: Pertinent negatives: diarrhea, dysuria, fever, urinary frequency, nausea, vomiting. Severity of pain: At its worst the pain was mild in the emergency department the pain is unchanged. The patient has experienced similar episodes in the past, multiple times. The patient has not recently seen a physician. 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 - Hysterectomy ca1 Historical: - Allergies: 12:14 Biaxin; ca1 12:14 Cefaclor; ca1 12:14 Demerol; ca1 12:14 hydromorphone HCl; ca1 12:14 meperidine HCl; ca1 12:14 Morphine; ca1 12:14 NSAIDS (Non-Steroidal Anti-Inflammatory Drug); ca1 12:14 PENICILLINS; ca1 - Home Meds: 12:14 Abilify 15 mg Oral tab once daily [Active]; Corlanor 7.5 mg Oral tab 1 tab 2 times per ca1 day [Active]; fluoxetine 20 mg Oral tab 1 tab once daily [Active]; Meclizine Oral [Active]; Plavix 75 mg Oral tab once daily [Active]; - PMHx: 12:14 Asthma; Cerebral Palsy; Erythromelalgia; GERD; Hearing Loss; Incomplete R BBB; POTS ca1 "when having an infection"; reactive airway; - PSHx: 12:14 Cholecystectomy; lower right lobectomy; right ovarian tumor removed; ca1 12:15 Hysterectomy; ca1 - Immunization history:: Adult Immunizations up to date, Flu vaccine is up to date. - Social history:: Smoking status: Patient denies any tobacco usage or history of. ROS: 18:57 Constitutional: Negative for fever, chills, and weight loss, Eyes: Negative for injury, kdr pain, redness, and discharge, Neck: Negative for injury, pain, and swelling, Cardiovascular: Negative for chest pain, palpitations, and edema, Respiratory: Negative for shortness of breath, cough, wheezing, and pleuritic chest pain, : Negative for injury, bleeding, discharge, and swelling, MS/Extremity: Negative for injury and deformity, Skin: Negative for injury, rash, and discoloration, Neuro: Negative for headache, weakness, numbness, tingling, and seizure activity. Psych: Negative for depression, anxiety, suicide ideation, homicidal ideation, and hallucinations, Allergy/Immunology: Negative for hives, rash, and allergies, Endocrine: Negative for neck swelling, polydipsia, polyuria, polyphagia, and marked weight changes, Hematologic/Lymphatic: Negative for swollen nodes, abnormal bleeding, and unusual bruising. 18:57 Abdomen/GI: Positive for abdominal pain, Flank pain, Negative for diarrhea, constipation, abdominal cramps, abdominal distension, anorexia, black/tarry stool, rectal pain, rectal bleeding. Exam: 18:57 Constitutional: This is a well developed, well nourished patient who is awake, alert, kdr and in no acute distress. Head/Face: Normocephalic, atraumatic. Eyes: Pupils equal round and reactive to light, extra-ocular motions intact. Lids and lashes normal. Conjunctiva and sclera are non-icteric and not injected. Cornea within normal limits. Periorbital areas with no swelling, redness, or edema. Neck: Trachea midline, no thyromegaly or masses palpated, and no cervical lymphadenopathy. Supple, full range of motion without nuchal rigidity, or vertebral point tenderness. No Meningismus. Chest/axilla: Normal chest wall appearance and motion. Nontender with no deformity. No lesions are appreciated. Cardiovascular: Regular rate and rhythm with a normal S1 and S2. No gallops, murmurs, or rubs. Normal PMI, no JVD. No pulse deficits. Respiratory: Lungs have equal breath sounds bilaterally, clear to auscultation and percussion. No rales, rhonchi or wheezes noted. No increased work of breathing, no retractions or nasal flaring. Abdomen/GI: Soft, non-tender, with normal bowel sounds. No distension or tympany. No guarding or rebound. No evidence of tenderness throughout. Back: No spinal tenderness. No costovertebral tenderness. Full range of motion. Skin: Warm, dry with normal turgor. Normal color with no rashes, no lesions, and no evidence of cellulitis. MS/ Extremity: Pulses equal, no cyanosis. Neurovascular intact. Full, normal range of motion. Neuro: Awake and alert, GCS 15, oriented to person, place, time, and situation. Cranial nerves II-XII grossly intact. Motor strength 5/5 in all extremities. Sensory grossly intact. Cerebellar exam normal. the patient has residual weakness on the left from prior injury Psych: Awake, alert, with orientation to person, place and time. Behavior, mood, and affect are within normal limits. Vital Signs: 12:08 BP 111 / 72; Pulse 69; Resp 17 S; Temp 97.6(TE); Pulse Ox 99% on R/A; Weight 86.18 kg ca1 (R); Height 5 ft. 8 in. (172.72 cm) (R); 13:01 BP 125 / 81; Pulse 70; Resp 16; Temp 98; Pulse Ox 99% on R/A; ll2 14:00 BP 180 / 80; Pulse 82; Resp 20; Pulse Ox 100% on R/A; ll2 12:08 Body Mass Index 28.89 (86.18 kg, 172.72 cm) ca1 MDM: 16:29 Patient medically screened. kdr 18:57 Data reviewed: vital signs, nurses notes, lab test result(s), radiologic studies. kdr Counseling: I had a detailed discussion with the patient and/or guardian regarding: the historical points, exam findings, and any diagnostic results supporting the discharge/admit diagnosis, lab results, the need for outpatient follow up. ED course: The patient was stable in the ED and with mom, they were happy with the interventions given and the plan for discharge and follow-up. 02/01 13:04 Order name: Basic Metabolic Panel; Complete Time: 13:52 [facility] 02/01 13:04 Order name: CBC with Diff; Complete Time: 13:52 [facility] 02/01 13:04 Order name: Hepatic Function; Complete Time: 13:52 [facility] 02/01 13:04 Order name: Lipase; Complete Time: 13:52 [facility] 02/01 13:18 Order name: Urine Dipstick--Ancillary (enter results); Complete Time: 13:52 02/01 13:04 Order name: IV Saline Lock; Complete Time: 13:38 [facility] 02/01 13:04 Order name: Labs collected and sent; Complete Time: 13:38 [facility] 02/01 14:26 Order name: Urine Microscopic Only; Complete Time: 16:13 [facility] 02/01 14:26 Order name: Urine Culture jl7 Administered Medications: 14:15 Drug: [place] (7.5 mg-325 mg) 1 tabs Route: PO; 7 14:45 Follow up: Response: No adverse reaction; Pain is decreased 7 16:39 Drug: LevaQUIN 750 mg Route: PO; 2 16:39 Follow up: Response: Medication administered at discharge. ll2 Disposition: 02/02/20 16:29 Discharged to Home. Impression: Urinary tract infection, site not specified. - Condition is Stable. - Discharge Instructions: Urinary Tract Infection, Adult, [id number]. - Prescriptions for Levaquin 750 mg Oral Tablet - take 1 tablet by ORAL route once daily for 10 days; 10 tablet. - Medication Reconciliation Form, Thank You Letter, Antibiotic Education form. - Follow up: Private Physician; When: 2 - 3 days; Reason: If symptoms return, Further diagnostic work-up, Recheck today's complaints, Continuance of care, Re-evaluation by your physician. - Problem is new. - Symptoms are unchanged. Signatures: Dispatcher [employer] EDMS Simon Huntley MD MD kdr Leal, Jahala RN RN jl7 Hannah Campa RN RN ca1 Meghan Aaron RN RN ll2 Corrections: (The following items were deleted from the chart) 16:47 16:29 02/02/2020 16:29 Discharged to Home. Impression: Urinary tract infection, site ll2 not specified. Condition is Stable. Forms are Medication Reconciliation Form, Thank You Letter, Antibiotic Education, Prescription Opioid Use. Follow up: Private Physician; When: 2 - 3 days; Reason: If symptoms return, Further diagnostic work-up, Recheck today's complaints, Continuance of care, Re-evaluation by your physician. Problem is new. Symptoms are unchanged. [facility] 17:52 16:47 02/02/2020 16:29 Discharged to Home. Impression: Urinary tract infection, site jl7 not specified. Condition is Stable. Discharge Instructions: Urinary Tract Infection, Adult, [id number]. Prescriptions for Levaquin 750 mg Oral Tablet - take 1 tablet by ORAL route once daily for 10 days; 10 tablet. and Forms are Medication Reconciliation Form, Thank You Letter, Antibiotic Education. Follow up: Private Physician; When: 2 - 3 days; Reason: If symptoms return, Further diagnostic work-up, Recheck today's complaints, Continuance of care, Re-evaluation by your physician. Problem is new. Symptoms are unchanged. ll2
[2020-02-02] MEDS ORDERED: levoFLOXacin 750 MG TAB ONE (16:50)
[2020-02-02] MEDS ORDERED: HYDROCODONE/APAP 7.5/325 MG TAB ONE (18:06)
[2020-02-02 21:36] VITALS: TEMP 98
[2020-02-02 21:39] VITALS: BP 180/80; O2SAT 100
== END 2020-02-02 17:52 | disposition home or self-care (01) ==
LOC: ER 12:01
DX: N39.0 Urinary tract infection, site not specified (principal); Z79.01 Long term (current) use of anticoagulants; Z88.0 Allergy status to penicillin; Z88.1 Allergy status to other antibiotic agents; Z88.5 Allergy status to narcotic agent; Z88.6 Allergy status to analgesic agent
CPT/HCPCS: 36415; 80048; 80076; 81003; 81015; 83690; 85025; 87086; 87088; 99284

== ENCOUNTER 2021-08-26 20:40 | Emergency (ER) | payer OTHER ==
--- OUTSIDE RECORDS SUMMARY | 2021-08-26 20:46 | XMS REPORT | Continuity of Care Document ---
:[address] [facility] t Address [address] [place] [address] Care Team Providers Name Role Phone Jimmie MARX Primary Care Physician KACI Attending Clinician Unavailable DANDRE NUNEZ Attending Clinician Unavailable Yamel Attending Clinician Unavailable Yrn PARKER Attending Clinician Unavailable KACI Attending Clinician Unavailable ALICIA Attending Clinician Unavailable NAHUM Attending Clinician Unavailable GUME Attending Clinician Unavailable LENIN Attending Clinician Unavailable IRIS PHELPS Attending Clinician Unavailable LOY Attending Clinician Unavailable YOHANA Attending Clinician Unavailable HUGO Attending Clinician Unavailable CHUY Attending Clinician Unavailable HOMER Attending Clinician Unavailable CAPELLAN Attending Clinician Unavailable MED PROVIDER Attending Clinician Unavailable PAO Attending Clinician Unavailable HOLTER Attending Clinician Unavailable ARACELISHIN Attending Clinician Unavailable BRAYAN Attending Clinician Unavailable DA Attending Clinician Unavailable ROXANA Attending Clinician Unavailable SONDRAS Attending Clinician Unavailable ROMI BUTLER Attending Clinician Unavailable Aislinn Attending Clinician Unavailable MUNIRA Attending Clinician Unavailable DELICIA Attending Clinician Unavailable Physician, Primary or Family Admitting Clinician Unavailabl e IRIS PHELPS Admitting Clinician Unavailable Payers Payer Name Policy Type Policy Number Effective Date Expiration Date S [facility] [id number] 2011 2017 00:00:00 00:00:00 Problems Condition Condition Condition Status Onset Resolution Last Treating Co mments Source Name Details Category Date Date Treatment Clinician Date Erythromel Erythromel Disease Active [facility] T algia algia 3 Health 00:00: 00 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 05-24 Health 00:00: 00 Intellectu Intellectu Disease Active U T al al 05-24 Health disability disability 00:00: 00 Urinary Urinary Disease Active UT incontinen incontinen 05-24 He alth ce ce 00:00: 00 Asthma Asthma Disease Active UT 8-23 Health 00:00: 00 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 Services ans Analysis Analysis Of Of Computeriz Computeriz ed Data ed Data History of History of Problem Resolve UT Nonpuerper Nonpuerper d Ph ysici al al ans Galactorrh Galactorrh ea Of The ea Of The Left Left Breast Breast Ovarian Ovarian Problem Active UT Cyst Cyst Physici ans Irregular Irregular Problem Active UT Length Of Length Of Phys ici Menstrual Menstrual ans Periods Periods History of History of Problem Resolve UT urinary urinary d Physici frequency frequency ans History of History of Problem Resolve UT Abdominal Abdominal d Phys ici pain, RLQ pain, RLQ ans (right (right lower lower quadrant) quadrant) History of History of Problem Resolve UT Abdominal Abdominal d Phys ici tenderness tenderness an s History of History of Problem Resolve UT Abnormal Abnormal d Physic i bleeding bleeding ans in in menstrual menstrual cycle cycle History of History of Problem Resolve UT pharyngiti pharyngiti d Ph ysici s s ans History of History of Problem Resolve UT urinary urinary d Physici tract tract ans infection infection History of History of Problem Resolve UT Acute Acute d Physici recurrent recurrent ans sinusitis sinusitis History of History of Problem Resolve UT vaginal vaginal d Physici bleeding bleeding ans History of History of Problem Resolve UT Rectal Rectal d Physici pain pain ans History of History of Problem Resolve UT Asthma Asthma d Physici with acute with acute an s exacerbati exacerbati on on History of History of Problem Resolve UT Atypical Atypical d Physic i face pain face pain ans History of History of Problem Resolve UT bacterial bacterial d Phys ici pneumonia pneumonia ans History of History of Problem Resolve UT Bartholin Bartholin d Phys ici gland cyst gland cyst an s History of History of Problem Resolve UT varicella varicella d Phys ici ans History of History of Problem Resolve UT Chest Chest d Physici pressure pressure ans History of History of Problem Resolve UT 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 History of History of Problem Resolve UT Cough Cough d Physici ans History of History of Problem Resolve UT Extremity Extremity d Phys ici pain pain ans History of History of Problem Resolve UT Foot pain Foot pain d Phys ici ans History of History of Problem Resolve UT pyelonephr pyelonephr d Ph ysici itis itis ans History of History of Problem Resolve UT Raynaud's Raynaud's d Phys ici syndrome syndrome ans History of History of Problem Resolve UT Joint Joint d Physici pain, hip pain, hip ans History of History of Problem Resolve UT Left ear Left ear d Physic i pain pain ans History of History of Problem Resolve UT Limb Limb d Physici swelling swelling ans History of History of Problem Resolve UT Mental Mental d Physici status status ans change change History of History of Problem Resolve UT Noninfecti Noninfecti d Ph ysici ous ous ans diarrhea diarrhea History of History of Problem Resolve UT Oligomenor Oligomenor d Ph ysici sunshine sunshine ans History of History of Problem Resolve UT Onychomyco Onychomyco d Ph ysici sis of sis of ans toenail toenail History of History of Problem Resolve UT Pain, Pain, d Physici joint, joint, ans ankle and ankle and foot foot History of History of Problem Resolve UT Pain, Pain, d Physici joint, joint, ans shoulder shoulder History of History of Problem Resolve UT Suprapubic Suprapubic d Ph ysici pain pain ans History of History of Problem Resolve UT Pre-operat Pre-operat d Ph ysici mari mari ans general general physical physical examinatio examinatio n n Recurrent Recurrent Problem Active UT UTI UTI Physici ans History of History of Problem Resolve UT Sore Sore d Physici throat throat ans History of History of Problem Resolve UT Subacute Subacute d Physic i and and ans chronic chronic vaginitis vaginitis History of History of Problem Resolve UT Urinary Urinary d Physici retention retention ans History of History of Problem Resolve UT UTI UTI d Physici symptoms symptoms ans History of History of Problem Resolve UT Viral Viral d Physici intestinal intestinal an s infection infection History of History of Problem Resolve UT Yeast Yeast d Physici infection infection ans Normal Normal Problem Active UT routine routine Physici physical physical ans examinatio examinatio n n Esophageal Esophageal Problem Active U T reflux reflux Physici ans Other Other Problem Active UT signs and signs and Phys ici symptoms symptoms ans in breast in breast Hypertroph Hypertroph Problem Active U T y of y of Physici breast breast ans Asthma Asthma Problem Active UT Physici ans 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 Ph ysici ions ions ans Arterial Arterial Problem Active UT insufficie insufficie Ph ysici ncy ncy ans Scoliosis Scoliosis Problem Active UT Physici ans Raynauds Raynauds Problem Active UT phenomenon phenomenon Ph ysici ans Cerebral Cerebral Problem Active UT palsy palsy Physici ans Allergic Allergic Problem Active UT rhinitis rhinitis Physic i ans Flu Flu Problem Active UT vaccine vaccine Physici need need ans Anxiety Anxiety Problem Active [facility]ici ans Erythromel Erythromel Problem Active U T algia algia Physici ans Essential Essential Problem Active UT (primary) (primary) Phys ici hypertensi hypertensi an s on on Heart Heart Problem Active UT block block Physici ans Hyperlipid Hyperlipid Problem Active U T emia emia Physici ans Psychosis Psychosis Problem Active [facility] ans Depression Depression Problem Active U T Physici ans Right Right Problem Active UT ankle ankle Physici swelling swelling ans 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 Ph ysici al al ans disability disability Tachycardi Tachycardi Problem Active U T a a Physici ans Pruritus Pruritus Problem Active UT of vagina of vagina Phys ici ans Irregular Irregular Problem Active UT menstruati menstruati Ph ysici on on ans Schizoaffe Schizoaffe Problem Active U T ctive ctive Physici disorder, disorder, ans depressive depressive type type Paroxysmal Paroxysmal Problem Active U T supraventr supraventr Ph ysici icular icular ans tachycardi tachycardi a a Palpitatio Palpitatio Problem Active U T ns ns Physici ans Heavy Heavy Problem Active UT menses menses Physici ans Iron Iron Problem Active UT deficiency deficiency Ph ysici anemia due anemia due an s to chronic to chronic blood loss blood loss Postoperat Postoperat Problem Active U T mari visit mari visit Phys ici ans History of History of Problem Resolve UT Acute Acute d Physici right-side right-side an s d low back d low back pain with pain with left-sided left-sided sciatica sciatica Low back Low back Problem Active UT pain pain Physici ans Back pain Back pain Problem Active [facility] ans Acute Acute Problem Active UT otitis otitis Physici media, media, ans unspecifie unspecifie d otitis d otitis media type media type Allergies, Adverse Reactions, Alerts Allergy Allergy Status Severity Reaction(s) Onset Inactive Treating Comm ents Source Name Type Date Date Clinician NSAIDS DA Active MO RASH 2021-0 [facility] ([facility] 08-24 [facility] 00:[facility] Penicill DA Active MO RASH 2021-0 [facility] ins 08-24 [facility] 00:[facility] morphine DA Active MO ITCHY 2021-0 [facility] 08-24 [facility] 00:[facility] hydromor DA Active MO RASH 2021-0 [facility] phone 08-24 [facility] 00:[facility] Penicill Propensi Active 2020-0 UT ins ty to 8-25 Health adverse 00:00: reaction 00 s Cefaclor Allergy Active 2020-0 UT to 5-28 Health substanc 00:00: e 00 Hydromor Allergy Active 2020-0 UT phone to 5-28 Health substanc 00:00: e 00 Meperidi Allergy Active 2020-0 UT ne to 5-28 Health substanc 00:00: e 00 Metoclop Allergy Active 2020-0 UT ramide to 5-28 Health substanc 00:00: e 00 Morphine Allergy Active 2020-0 UT to 5-28 Health substanc 00:00: e 00 Nsaids Allergy Active 2020-0 UT to 5-28 Health substanc 00:00: e 00 Biaxin Allergy Active UT TABS to drug Physici (finding ans ) Ceclor Allergy Active UT CAPS to drug Physici (finding ans ) Cipro Allergy Inactiv UT TABS to drug e Physici (finding ans ) Demerol Allergy Active UT TABS to drug Physici (finding ans ) Dilaudid Allergy Active UT TABS to drug Physici (finding ans ) Levaquin Allergy Active UT TABS to drug Physici (finding ans ) Morphine Allergy Active UT Derivati to drug Physici ves (finding ans ) NSAIDs Allergy Active UT to drug Physici (finding ans ) Penicill Allergy Active UT ins to drug Physici (finding ans ) Diflucan Allergy Active UT TABS to drug Physici (finding ans ) Reglan Allergy Active UT to drug Physici (finding ans ) Family History Family Member Diagnosis Comments Start Date Stop Date Source Unknown Family Family history of Family History [facility] Member Hypertension Grandmother Family history of [facility] rheumatoid arthritis Mother Family history of [facility] hypertension Social History Social Habit Start Date Stop Date Quantity Comments Source Exposure to Unable to assess [facility] SARS-CoV-2 (event) Alcohol intake 2021-05-24 2021-05-24 [facility] 00:00:00 00:00:00 non-drinker (finding) Tobacco use and 2021-01-20 2021-01-20 Smokeless tobacco [facility] exposure 00:00:00 00:00:00 non-user Sex Assigned At [birth year] [facility] 00:00:00 00:00:00 Smoking Status Start Date Stop Date Source Never smoked tobacco [facility] Medications Ordered Filled Start Stop Current Ordering Indication Dosage Frequency Signature Comments Components Source Medication Medication Date Date Medication? Clinician (SIG) Name Name Ivabradine Yes [id number] 1{tbl} Q.5D Take 1 UT HCl 5[facility]11 [facility] mouth 2 7.5 MG 00 (two) tablet times a day. clopidogrel 2022- Yes [id number] 75mg QD Take 1 UT (Plavix) 75 5-11 05-12 tablet (75 H ealth MG tablet 00:00: 04:59 mg total) 00 :00 by mouth 1 (one) time each day. TK 1 T PO D ARIPiprazol 2021- Yes [id number] 5mg QD Take 1 UT e (Abilify) 07-21 tablet (5 He alth 5 MG tablet 00:00: 04:59 mg total) 00 :00 by mouth 1 (one) time each day. (Take with Aripiprazo le 20 mg to total aripripraz ole 25 mg daily). ARIPiprazol 2021- Yes [id number] 5mg QD Take 1 UT e (Abilify) 07-21 tablet (5 He alth 5 MG tablet 00:00: 04:59 mg total) 00 :00 by mouth 1 (one) time each day. Take with aripiprazo le 20 mg to total 25 mg daily. FLUoxetine 2021- Yes [id number] 20mg QD Take 1 UT (PROzac) 20 07-21 capsule Heal th MG capsule 00:00: 04:59 (20 mg 00 :00 total) by mouth 1 (one) time each day. ARIPiprazol 2021- Yes [id number] 5mg QD Take 1 UT e (Abilify) 07-21 tablet (5 He alth 5 MG tablet 00:00: 04:59 mg total) 00 :00 by mouth 1 (one) time each day. (Take with Aripiprazo le 20 mg to total aripripraz ole 25 mg daily). ARIPiprazol 2021- Yes [id number] 5mg QD Take 1 UT e (Abilify) 07-21 tablet (5 He alth 5 MG tablet 00:00: 04:59 mg total) 00 :00 by mouth 1 (one) time each day. Take with aripiprazo le 20 mg to total 25 mg daily. FLUoxetine 2021- Yes [id number] 20mg QD Take 1 UT (PROzac) 20 07-21 capsule Heal th MG capsule 00:00: 04:59 (20 mg 00 :00 total) by mouth 1 (one) time each day. ARIPiprazol 2021- Yes [id number] 20mg QD Take 1 UT e (Abilify) 07-20 tablet (20 H ealth 20 MG 00:00: 04:59 mg total) tablet 00 :00 by mouth 1 (one) time each day. ARIPiprazol 2021- Yes [id number] 20mg QD Take 1 UT e (Abilify) 07-20 tablet (20 H ealth 20 MG 00:00: 04:59 mg total) tablet 00 :00 by mouth 1 (one) time each day. ARIPiprazol 2021- No [id number] 10mg Q.5D TAKE 1 UT e (Abilify) 4-26 04-27 TABLET (10 H ealth 10 MG 00:00: 00:00 MG TOTAL) tablet 00 :00 BY MOUTH 2 (TWO) TIMES A DAY, IN THE MORNING AND AT BEDTIME. diphenhydrA 0 Yes QD Take by UT MINE 3- mouth at [facility] (BENADryl) 09:43: night if 25 MG 28 needed for tablet itching. diphenhydrA 2021-0 Yes QD Take by UT MINE 3- mouth at [facility] (BENADryl) 09:43: night if 25 MG 28 needed for tablet itching. diphenhydrA 0 Yes QD Take by UT MINE 3-01 mouth at [facility] (BENADryl) 09:43: night if 25 MG 28 needed for tablet itching. diazePAM 0 Yes 17 2mg Take 2 mg UT (Valium) 2 - by mouth 1 Hea lth MG tablet 09:09: (one) time 36 each day if needed for anxiety. diazePAM Yes 17 2mg Take 2 mg UT (Valium) 2 - by mouth 1 Hea lth MG tablet 09:09: (one) time 36 each day if needed for anxiety. diazePAM 2021-0 Yes 17 2mg Take 2 mg UT (Valium) 2 3-01 by mouth 1 Hea lth MG tablet 09:09: (one) time 36 each day if needed for anxiety. FLUoxetine 2021- No [id number] 20mg QD Take 1 UT (PROzac) 20 05-24- capsule Heal th MG capsule 00:00: 04:59 (20 mg 00 :00 total) by mouth 1 (one) time each day. ARIPiprazol 2021- No [id number] 5mg QD Take 1 UT e (Abilify) 3-03 30- tablet (5 He alth 5 MG tablet 00:00: 04:59 mg total) 00 :00 by mouth 1 (one) time each day. At 1 PM. clopidogrel 0 3- No [id number] 75mg QD Take 1 UT (Plavix) 75 2-28 03- tablet (75 H ealth MG tablet 00:00: 05:59 mg total) 00 :00 by mouth 1 (one) time each day. TK 1 T PO D clopidogrel 2022- No [id number] 75mg QD Take 1 UT (Plavix) 75 2-28 03-01 tablet (75 H ealth MG tablet 00:00: 05:59 mg total) 00 :00 by mouth 1 (one) time each day. TK 1 T PO D clopidogrel 2021- No [id number] 75mg QD Take 1 UT (Plavix) 75 2-28 05-11 tablet (75 H ealth MG tablet 00:00: 00:00 mg total) 00 :00 by mouth 1 (one) time each day. TK 1 T PO D Ivabradine Yes [id number] 1{tbl} Q.5D Take 1 UT HCl 2-25 tablet by [facility] ([facility]) 00:00: mouth 2 7.5 MG 00 (two) tablet times a day. Ivabradine Yes [id number] 1{tbl} Q.5D Take 1 UT HCl 2-25 tablet by [employer] ([facility]) 00:00: mouth 2 7.5 MG 00 (two) tablet times a day. Ivabradine 2021- No [id number] 1{tbl} Q.5D Take 1 UT HCl 2-25 05-11 [facility] 00:00: 00:00 mouth 2 7.5 MG 00 :00 (two) tablet times a day. albuterol Yes [id number] 2.5mg Take 3 mL UT (2.5 8-23 (2.5 mg Health MG/3ML) 00:00: total) by 0.083% 00 nebulizati nebulizer on every 4 solution (four) hours if needed for wheezing or shortness of breath. albuterol 2020- Yes [id number] 2.5mg Take 3 mL UT (2.5 8-23 (2.5 mg Health MG/3ML) 00:00: total) by 0.083% 00 nebulizati nebulizer on every 4 solution (four) hours if needed for wheezing or shortness of breath. albuterol Yes [id number] 2.5mg Take 3 mL UT (2.5 8-23 (2.5 mg Health MG/3ML) 00:00: total) by 0.083% 00 nebulizati nebulizer on every 4 solution (four) hours if needed for wheezing or shortness of breath. ARIPiprazol ARIPiprazol Yes SHAOJIE TAKE 1/2 UT e 10 MG e 10 MG 4-22 VARGAS M.D. TABLET BY Phys[facility] Oral Tablet Oral Tablet 00:00: MOUTH ans 00 THREE TIMES DAILY AND 1/2 TABLET BY MOUTH EVERY NIGHT AT BEDTIME NEEDED Azithromyci Azithromyci Yes BARBARA TAKE 2 UT n 250 MG n 250 MG 3-15 NAHUM TABLETS ON Phys[facility] Oral Tablet Oral Tablet 00:00: M.D. DAY 1 THEN ans 00 TAKE 1 TABLET A DAY FOR 4 DAYS. Omeprazole Omeprazole Yes BARBARA Q0.5D TAKE 1 UT 40 MG Oral 40 MG Oral 1-20 NAHUM CAPSULE Physici Capsule Capsule 00:00: M.D. TWICE ans Delayed Delayed 00 DAILY Release Release 30-60 minutes before a protein-co ntaining meal Fluticasone Fluticasone Yes BARBARA QD USE 2 UT Propionate Propionate 4-03 NAHUM SPRAYS IN Phys[facility] 50 MCG/ACT 50 MCG/ACT 00:00: M.D. EACH a ns Nasal Nasal 00 NOSTRIL Suspension Suspension ONCE DAILY Corlanor Corlanor Yes BARBARA 1 and half UT 7.5 MG Oral 7.5 MG Oral 4-03 NAHUM tablet PO Physici Tablet Tablet 00:00: M.D. BID ans 00 Nystatin-Tr Nystatin-Tr 2018-03 Yes GAZALA Q0.5D APPLY UT iamcinolone iamcinolone 0-08 CAPELLAN SPARINGLY Phys[facility] [id number] 00:00: M.D. TO a ns UNIT/GM-% UNIT/GM-% 00 AFFECTED External External AREA(S) Cream Cream TWICE DAILY FLUoxetine FLUoxetine 2014-03 Yes MARSHALLOJIE TAKE 1 UT HCl - 20 MG HCl - 20 MG 1-10 VARGAS M.D. CAPSULE BY [facility] Oral Oral 00:00: MOUTH ans Capsule Capsule 00 DAILY Abilify 10 Abilify 10 2014-03 Yes MARSHALLOJIE TAKE 1/2 UT MG Oral MG Oral 1-10 VARGAS M.D. TAB THREE Physici Tablet Tablet 00:00: TIMES ans 00 DAILY AND 1/2 TAB AT BEDTIME NEEDED Albuterol Albuterol Yes BARBARA USE 1 VIAL UT Sulfate Sulfate 8-14 NAHUM VIA Physi ci (2.5 (2.5 00:00: M.D. NEBULIZER ans MG/3ML) MG/3ML) 00 EVERY 4 0.083% 0.083% HOURS Inhalation Inhalation NEEDED Nebulizatio Nebulizatio n Solution n Solution Clopidogrel Clopidogrel Yes BARBARA QD TAKE 1 UT Bisulfate Bisulfate 6-28 NAHUM TABLET Physici 75 MG Oral 75 MG Oral 00:00: M.D. DAILY. ans Tablet Tablet 00 Plavix TABS Plavix TABS Yes U T Physici ans Immunizations Ordered Immunization Filled Immunization Date Status Commen ts Source Name Name Fluzone Quadrivalent 2018-12-20 Completed [facility] 0.5 ML Intramuscular 11:49:00 Suspension Prefilled Syringe Fluzone Quadrivalent 2017-11-30 Completed [facility] 0.5 ML Intramuscular 13:18:00 Suspension Fluzone Quadrivalent 2017-01-02 Completed [facility] 0.5 ML Intramuscular 11:16:00 Suspension Fluzone Quadrivalent 2016-01-13 Completed [facility] 0.5 ML Intramuscular 14:22:00 Suspension Influenza 2010-12-19 Completed [facility] 14:37:00 Influenza 2009-12-03 Completed [facility] 17:39:00 Influenza 2007-12-31 Completed [facility] 00:00:00 Influenza 2007-02-25 Completed [facility] 00:00:00 Td 2007-02-25 Completed [facility] 00:00:00 Vital Signs Vital Name Observation Time Observation Value Comments Source Systolic blood 2019-08-04 11:18:00 100 mm[Hg] Location: RUE; [facility] pressure Position: Sitting Diastolic blood 2019-08-04 11:18:00 62 mm[Hg] Location: RUE; [facility] pressure Position: Sitting Body height 2019-08-04 11:18:00 68 [in_us] [facility] Weight 2019-08-04 11:18:00 201.5 [lb_av] [facility] Body mass index 2019-08-04 11:18:00 30.64 kg/m2 [facility] (BMI) [Ratio] Body temperature 2019-08-04 11:18:00 97 [degF] Method: Oral [facility] Heart Rate 2019-08-04 11:18:00 77 /min [facility] Systolic blood 2019-07-23 10:43:00 101 mm[Hg] Location: RUE; [facility] pressure Position: Sitting Diastolic blood 2019-07-23 10:43:00 66 mm[Hg] Location: RUE; [facility] pressure Position: Sitting Body height 2019-07-23 10:43:00 68 [in_us] [facility] Weight 2019-07-23 10:43:00 190 [lb_av] [facility] Body mass index 2019-07-23 10:43:00 28.89 kg/m2 [facility] (BMI) [Ratio] Heart Rate 2019-07-23 10:43:00 69 /min [facility] Body temperature 2019-07-23 10:43:00 97.1 [degF] [facility] Systolic blood 2019-05-02 15:13:00 112 mm[Hg] Location: RUE; [facility] pressure Position: Sitting Diastolic blood 2019-05-02 15:13:00 76 mm[Hg] Location: RUE; [facility] pressure Position: Sitting Body height 2019-05-02 15:13:00 68 [in_us] [facility] Weight 2019-05-02 15:13:00 190 [lb_av] [facility] Body mass index 2019-05-02 15:13:00 28.89 kg/m2 [facility] (BMI) [Ratio] Heart Rate 2019-05-02 15:13:00 79 /min [facility] BP Systolic 2019-04-15 16:33:00 122 mm[Hg] Location: LUE; [facility] Position: Sitting BP Diastolic 2019-04-15 16:33:00 78 mm[Hg] Location: LUE; [facility] Position: Sitting Height 2019-04-15 16:33:00 68 [in_us] [facility] Weight 2019-04-15 16:33:00 209 [lb_av] [facility] Body Mass Index 2019-04-15 16:33:00 31.78 kg/m2 [facility] Calculated BP Systolic 2018-12-31 16:04:00 113 mm[Hg] Location: LUE; [facility] Position: Sitting BP Diastolic 2018-12-31 16:04:00 79 mm[Hg] Location: LUE; [facility] Position: Sitting Height 2018-12-31 16:04:00 68 [in_us] [facility] Weight 2018-12-31 16:04:00 204 [lb_av] [facility] Body Mass Index 2018-12-31 16:04:00 31.02 kg/m2 [facility] Calculated Temperature 2018-12-31 16:04:00 97.9 [degF] Method: Oral [facility] Heart Rate 2018-12-31 16:04:00 79 /min [facility] BP Systolic 2018-12-20 11:28:00 136 mm[Hg] Location: LUE; [facility] Position: Sitting BP Diastolic 2018-12-20 11:28:00 82 mm[Hg] Location: LUE; [facility] Position: Sitting Height 2018-12-20 11:28:00 68 [in_us] [facility] Weight 2018-12-20 11:28:00 208.125 [lb_av] [facility] Body Mass Index 2018-12-20 11:28:00 31.65 kg/m2 [facility] Calculated Temperature 2018-12-20 11:28:00 97.5 [degF] Method: Oral [facility] Heart Rate 2018-12-20 11:28:00 72 /min Location: L [facility] Brachial Artery; Respiration Rate 2018-12-20 11:28:00 16 /min Quality: Normal [facility] BP Systolic 2018-11-27 10:59:00 104 mm[Hg] Location: RUE; [facility] Position: Sitting BP Diastolic 2018-11-27 10:59:00 67 mm[Hg] Location: RUE; [facility] Position: Sitting Height 2018-11-27 10:59:00 68 [in_us] [facility] Weight 2018-11-27 10:59:00 204 [lb_av] [facility] Body Mass Index 2018-11-27 10:59:00 31.02 kg/m2 [facility] Calculated Temperature 2018-11-27 10:59:00 98.2 [degF] Method: Oral [facility] Heart Rate 2018-11-27 10:59:00 76 /min Location: R [facility] Brachial Artery; Respiration Rate 2018-11-27 10:59:00 18 /min Quality: Normal [facility] O2 SAT 2018-11-27 10:59:00 99 % Source: RA [facility] BP Systolic 2018-11-26 11:27:00 105 mm[Hg] Location: RUE; [facility] Position: Supine BP Diastolic 2018-11-26 11:27:00 74 mm[Hg] Location: RUE; [facility] Position: Supine Heart Rate 2018-11-26 11:27:00 75 /min Location: R [facility] Brachial Artery; Quality: Normal BP Systolic 2018-11-26 11:25:00 115 mm[Hg] Location: LUE; [facility] Position: Standing BP Diastolic 2018-11-26 11:25:00 78 mm[Hg] Location: LUE; [facility] Position: Standing Heart Rate 2018-11-26 11:25:00 123 /min Location: L [facility] Brachial Artery; Quality: Normal BP Systolic 2018-11-26 11:19:00 91 mm[Hg] Location: RUE; [facility] Position: Sitting BP Diastolic 2018-11-26 11:19:00 70 mm[Hg] Location: RUE; [facility] Position: Sitting Heart Rate 2018-11-26 11:19:00 84 /min Location: R [facility] Brachial Artery; Quality: Normal Heart Rate 2018-11-26 11:18:00 84 /min Location: [facility] Brachial Artery; Quality: Normal BP Systolic 2018-11-26 10:57:00 106 mm[Hg] Location: RUE; [facility] Position: Sitting BP Diastolic 2018-11-26 10:57:00 72 mm[Hg] Location: RUE; [facility] Position: Sitting Height 2018-11-26 10:57:00 68 [in_us] [facility] Weight 2018-11-26 10:57:00 204 [lb_av] [facility] Body Mass Index 2018-11-26 10:57:00 31.02 kg/m2 [facility] Calculated Temperature 2018-11-26 10:57:00 98.7 [degF] Method: Oral [facility] Heart Rate 2018-11-26 10:57:00 78 /min Location: [facility] Radial; Quality: Normal Respiration Rate 2018-11-26 10:57:00 16 /min Quality: Normal [facility] BP Systolic 2018-04-23 12:50:00 107 mm[Hg] Location: LUE; [facility] Position: Sitting BP Diastolic 2018-04-23 12:50:00 73 mm[Hg] Location: LUE; [facility] Position: Sitting Weight 2018-04-23 12:50:00 208.25 [lb_av] [facility] Body Mass Index 2018-04-23 12:50:00 31.66 kg/m2 [facility] Calculated Temperature 2018-04-23 12:50:00 97.7 [degF] Method: Oral [facility] Heart Rate 2018-04-23 12:50:00 65 /min Location: [facility] Brachial Artery; Quality: Normal Respiration Rate 2018-04-23 12:50:00 18 /min Quality: Normal [facility] O2 SAT 2018-04-23 12:50:00 99 % Source: RA [facility] BP Systolic 2017-11-30 13:16:00 115 mm[Hg] Location: LUE; [facility] Position: Sitting BP Diastolic 2017-11-30 13:16:00 78 mm[Hg] Location: LUE; [facility] Position: Sitting Height 2017-11-30 13:16:00 68 [in_us] [facility] Weight 2017-11-30 13:16:00 203 [lb_av] [facility] Body Mass Index 2017-11-30 13:16:00 30.87 kg/m2 [facility] Calculated Temperature 2017-11-30 13:16:00 98.2 [degF] Method: Oral [facility] Heart Rate 2017-11-30 13:16:00 96 /min Location: [facility] Radial; Quality: Normal Respiration Rate 2017-11-30 13:16:00 16 /min Quality: Normal [facility] BP Systolic 2017-08-30 10:00:00 113 mm[Hg] Location: RUE; [facility] Position: Sitting BP Diastolic 2017-08-30 10:00:00 78 mm[Hg] Location: RUE; [facility] Position: Sitting Height 2017-08-30 10:00:00 68 [in_us] [facility] Weight 2017-08-30 10:00:00 205 [lb_av] [facility] Body Mass Index 2017-08-30 10:00:00 31.17 kg/m2 [facility] Calculated Temperature 2017-08-30 10:00:00 98.3 [degF] Method: Oral [facility] Heart Rate 2017-08-30 10:00:00 78 /min [facility] BP Systolic 2017-08-06 13:24:00 95 mm[Hg] Location: LUE; [facility] Position: Sitting BP Diastolic 2017-08-06 13:24:00 63 mm[Hg] Location: LUE; [facility] Position: Sitting Height 2017-08-06 13:24:00 68 [in_us] [facility] Body Mass Index 2017-08-06 13:24:00 31.52 kg/m2 [facility] Calculated Weight 2017-08-06 13:24:00 207.3125 [lb_av] [facility] Temperature 2017-08-06 13:24:00 98 [degF] Method: [facility] Temporal Heart Rate 2017-08-06 13:24:00 81 /min [facility] Respiration Rate 2017-08-06 13:24:00 16 /min Quality: Normal [facility] BP Systolic 2017-08-06 10:29:00 107 mm[Hg] Location: RUE; [facility] Position: Sitting BP Diastolic 2017-08-06 10:29:00 74 mm[Hg] Location: RUE; [facility] Position: Sitting Height 2017-08-06 10:29:00 68 [in_us] [facility] Body Mass Index 2017-08-06 10:29:00 31.47 kg/m2 [facility] Calculated Weight 2017-08-06 10:29:00 207 [lb_av] [facility] Heart Rate 2017-08-06 10:29:00 69 /min Location: [facility] Radial; Respiration Rate 2017-08-06 10:29:00 16 /min Quality: Normal [facility] O2 SAT 2017-08-06 10:29:00 99 % Source: RA [facility] BP Systolic 2017-07-27 10:36:00 110 mm[Hg] Location: RUE; [facility] Position: Sitting BP Diastolic 2017-07-27 10:36:00 78 mm[Hg] Location: RUE; [facility] Position: Sitting Height 2017-07-27 10:36:00 68 [in_us] [facility] Body Mass Index 2017-07-27 10:36:00 31.54 kg/m2 [facility] Calculated Weight 2017-07-27 10:36:00 207.4375 [lb_av] [facility] Temperature 2017-07-27 10:36:00 98.5 [degF] Method: Oral [facility] Heart Rate 2017-07-27 10:36:00 69 /min Location: [facility] Brachial Artery; Quality: Normal Respiration Rate 2017-07-27 10:36:00 16 /min Quality: Normal [facility] Procedures Procedure Date / Time Performed Performing Clinician Sourc e [QL] CMP W/EGFR 2019-10-20 00:00:00 [facility] MRI Spine lumbar wo contrast 2019-10-20 00:00:00 [facility] [id number] . [facility] - PAP 2019-05-02 00:00:00 [facility] [QLH] CULTURE, URINE, 2019-05-02 00:00:00 [facility] ROUTINE [QLH] URINALYSIS, COMPLETE 2019-05-02 00:00:00 [facility] US Pelvis with Pelvis 2019-04-15 00:00:00 [facility] Transvaginal [id number] [QLH] CULTURE, URINE, 2018-12-31 00:00:00 [facility] ROUTINE [QLH] URINALYSIS, COMPLETE 2018-12-03 00:00:00 [facility] [QLH] CULTURE, URINE, 2018-12-03 00:00:00 [facility] ROUTINE [N] 2D Echo complete, with 2018-11-26 00:00:00 [facility] Doppler [id number] [QLH] CMP W/EGFR 2018-04-23 00:00:00 [facility] [QL] LIPID PANEL 2018-04-23 00:00:00 [facility] [QL] TSH, 3RD GENERATION 2018-04-23 00:00:00 [facility] W/REFLEX TO FT4 [QLH] CBC (INCLUDES 2018-04-23 00:00:00 [facility] DIFF/PLT) [QLH] HEMOGLOBIN A1c 2018-04-23 00:00:00 [facility] [QLH] URINALYSIS, COMPLETE 2017-11-30 00:00:00 [facility] [QLH] CULTURE, URINE, 2017-11-30 00:00:00 [facility] ROUTINE US Pelvis Transvaginal [id number] 2017-11-30 00:00:00 [facility] History of Appendectomy [facility] History of Cholecystectomy [facility] of [facility]ophorectomy [facility] Plan of Care Planned Activity Planned Date Details Comments Source Diagnostic Test Pending 2018-12-17 00:00:00 [N] 2D Echo [facility] complete, with Doppler 11344 [code = [N] 2D Echo complete, with Doppler 76730] Encounters Start End Encounter Admission Attending Care Care Encounter Source Date/Time Date/Time Type Type Clinicians Facility Department ID 2021-08-26 Outpatient [facility] [id number] [place] 08:08:07 [id number] [facility] 2021-08-03 Outpatient GEMMAJAJAPOONAM, [facility] [id number] [place] 11:24:21 MARK [id number] [facility] 2021-07-26 Outpatient KACI, [facility] [id number] [id number] UT 14:58:54 MARK [id number] [facility] 2021-07-21 Outpatient MAYRA, [facility] [id number] [place] 13:25:12 [facility] [id number] [facility] 2021-08-24 2021-08-24 Emergency EM Lacy, [facility] [id number] [facility] 19:50:00 21:25:00 Clarissa [id number] [facility] 2021-08-24 2021-08-24 Emergency EM Lacy, [facility] ER [id number] [facility] 19:50:00 21:25:00 Clarissa 20 [facility] 2021-08-03 2021-08-03 Telephonic Kaci, UTP 6400 [id number] [place] 11:00:00 11:29:[address] [id number] Health [id number] 2021-07-26 2021-07-26 Telephone AILIN Clemons 6400 [id number] [place] 00:00:00 00:00:[address] [id number] Health [id number] 2021-07-20 2021-07-20 Telephone Jones Pool SW [id number] [place] 00:00:00 00:00:00 Jones Pool MULTI [id number] Health SPECIALTY [id number] CLINIC [id number] 2020-06-30 2020-06-30 AILIN Murguia UTP [id number] [place] 09:45:00 09:45:00 t; YAN BEEBE Ph milagros CLEMONS, ans MARK, BOX COVERING MACHINE OPERATOR 2020-06-23 2020-06-23 AILIN Murguia UTP [id number] [place] 11:30:00 11:30:00 t; YAN BEEBE Ph milagros CLEMONS, ans MARK, BOX COVERING MACHINE OPERATOR 2020-06-14 2020-06-14 AILIN Feliz Multispecia [id number] [place] 11:00:00 11:00:00 t; JOSELO VARGAS lty - Elham JOSUE M.D. Internation evens [facility] 2020-06-10 2020-06-10 AILIN Feliz UTP [id number] [place] 10:30:00 10:30:00 t; JOSELO VARGAS Physi ci SHAOJIE, M.D. ans M.D. 2020-06-07 2020-06-07 AILIN Santamaria Family [id number] [place] 07:50:00 07:50:00 t; Milena [facility]ENEZ [facility] Kenneth JIMENE[facility] M.[facility]. [place] 2020-04-14 2020-04-14 AppointAILIN Edwards Multispecia [id number] [place] 11:30:00 11:30:00 t; JOSELO VARGAS lty - Physi ci Milena JOSUE Internation evens [facility] 2020-04-14 2020-04-14 Fiordaliza SIDHU, [facility] UTP [id number] [place] 09:50:00 09:50:00 t; Milena JIMENEZ Ph evens Mariee M.D. 2020-01-19 2020-01-19 Fiordaliza SIDHU, [facility] Family [id number] [place] 11:10:00 11:10:00 t; Milena [facility]ENEZ [facility] JIM[facility] M.[facility]. [place] 2019-11-18 2019-11-18 AppointAILIN Edwards UTP [id number] [place] 11:00:00 11:00:00 t; JOSELO VARGAS Physi ci Milena JOSUE M.D. 2019-11-13 2019-11-13 AppointAILIN Edwards Multispecia [id number] [place] 13:00:00 13:00:00 t; JOSELO VARGAS lty - Physi rachel JOSUE M.D. Internation evens [facility] 2019-11-06 2019-11-06 Fiordaliza CLEMONS, [facility] UTP [id number] [place] 10:30:00 10:30:00 t; YAN BEEBE Ph evens Wood NP 2019-10-20 2019-10-20 Appointchika SIDHU, [facility] UTP [id number] [place] 10:10:00 10:10:00 t; Milena JIMENEZ Ph evens Mariee M.D. 2019-09-19 2019-09-19 Foirdaliza DUNAWAY, [facility] UTP [id number] [place] 09:00:00 09:00:00 t; SLICK DUNAWAY M.D. P hysici ALLAN, ans M.D. 2019-09-15 2019-09-15 Appointchika PHELPS, [facility] [id number] [place] 13:30:00 13:30:00 t; Milena ALEGRE ans ASHA, M.D. 2019-08-12 2019-08-12 Fiordaliza CLEMONS, [facility] [id number] [place] 11:30:00 11:30:00 t; YAN BEEBE evens Wood NP 2019-08-04 2019-08-04 Fiordaliza MAG, [facility] Women's [id number] [place] 11:00:00 11:00:00 t; Milena ALEGRE [place] - Ph milagros [place] evens [facility]GRE [facility] 2019-07-24 2019-07-27 [facility] INGRISADAIR, [facility] 0[facility] 13:05:00 19:10:00 CODEY 2019-07-24 2019-07-24 Fiordaliza GRANADO, [facility] [id number] [place] 13:00:00 13:00:00 t; Elham COLLAZO M.D. ans SHERVIN, M.D. 2019-07-23 2019-07-23 Fiordaliza MULLER [facility] Obstetrics [id number] UT 10:30:00 10:30:00 t; Margarita SCHMIDT i, M.D. Gynecology Mandie Rueda M.D. Clinic 2019-07-16 2019-07-16 Fiordaliza CLEMONS, [facility] [id number] [place] 15:30:00 15:30:00 t; YAN BEEBE milagros CLEMONS, evens BEEBE NP 2019-06-27 2019-06-27 Fiordaliza SIDHU, [facility] Family [id number] [place] 13:00:00 13:00:00 t; Milena JIMENEZ Medicine - Donna SIDHU, [place] Kenneth Best M.D. [place] 2019-06-17 2019-06-17 AILIN Feliz Multispecia [id number] [place] 12:00:00 12:00:00 t; JOSELO VARGAS lty - Physi rachel JOSUE M.D. Internation evens [facility] 2019-05-13 2019-05-13 Fiordaliza CLEMONS, [facility] [id number] [place] 11:00:00 11:00:00 t; YAN BEEBE Ph evens Wood NP 2019-05-09 2019-05-09 Fiordaliza ARIAS, [facility] [id number] [place] 10:45:00 10:45:00 t; ANABEL ARIAS M.D. Physici HAJAR, ans M.D. 2019-05-02 2019-05-02 Fiordaliza VERA, [facility] Women's [id number] [place] 15:00:00 15:00:00 t; FRED [place] - Phys ici Milena VERA [place] Kenneth Tinsley M.D. [place] 2019-04-28 2019-04-28 Emergency E MHBL MHBL [id number] MHBL 12:36:00 12:36:00 2019-04-15 2019-04-15 [facility] [id number] [place] 15:40:00 15:40:00 t; [facility] mil[facility]ros CORONEL M.D. [place] evens RAMIREZ M.D. 2019-02-26 2019-02-26 Appointchkia ARIAS, [facility] [id number] [place] 10:30:00 10:30:00 t; ANABEL ARIAS M.D. Physici HAJAR, ans M.D. 2018-12-31 2018-12-31 [facility]ordaliza [facility] W[facility] [id number] [place] 15:00:00 15:00:00 t; MARINO [place] - Physi ci Milena CAPELLAN [facility] Kenneth PICHARDO M.D. [place] 2018-12-25 2018-12-25 Fiordaliza CLEMONS, [facility] [id number] [place] 13:30:00 13:30:00 t; YAN BEEBE Ph evens Wood NP 2018-12-20 2018-12-20 Appointchika MED [facility] Centralized [id number] [place] 11:30:00 11:30:00 t; MED PROVIDER, Case Phys ici PROVIDER, TCM Management ans TCM 2018-12-08 2018-12-08 [facility]26 [facility] 20:00:00 11:53:00 2018-11-27 2018-11-27 AILIN Reina [id number] [place] 13:45:00 13:45:00 t; NATALIE CEDENO Phy sici SAUMYA, M.D. ans M.D. 2018-11-27 2018-11-27 AILIN Feliz Multispecia [id number] [place] 10:30:00 10:30:00 t; JOSELO VARGAS lty - Physi rachel JOSUE M.D. Internation evens [facility] 2018-11-26 2018-11-26 AILIN Flower Non-Invasiv [id number] [place] 13:30:00 13:30:00 t; CÉSAR NON-INVASIV e - [place] Physic NON-INVASI E [facility] 2018-11-26 2018-11-26 AILIN Santamaria Family [id number] [place] 10:30:00 10:30:00 t; Milena JIMENEZ Medicine - PhysicKennedy, [place] Kenneth Best M.D. [place] 2018-11-01 2018-10-31 Inpatient E [facility] CAR 7525 [facility] 10:09:00 20:37:00 2018-09-09 2018-09-09 AILIN Gaming [facility] [id number] [place] 09:20:00 09:20:00 t; JORDI WONG, Ph Milena Villanueva M.D. 2018-04-23 2018-04-23 AILIN Feliz Community [id number] [place] 13:00:00 13:00:00 t; JOSELO VARGAS, [facility] and Ph milagros JOSUE M.D. Wellness evens [facility] 2018-03-06 2018-03-06 AILIN Feliz [facility] [id number] [place] 12:00:00 12:00:00 t; JOSELO VARGAS Physi Milena Pettit M.D. 2018-02-19 2018-02-19 AILIN Feliz [id number] [place] 11:30:00 11:30:00 t; JOSELO VARGAS Physi ci SHAOJIE, M.D. ans MBud 2018-02-19 2018-02-19 Appointmen ALICIA [facility] UTP [id number] [place] 11:30:00 11:30:00 t; JOSELO VARGAS Physi ci SHAOJIE, M.D. ans M.D. 2017-12-26 2017-12-26 AppointKARINE Payan, [facility] UTP [id number] [place] 14:30:00 14:30:00 t; Milena SCHMIDT Physic i Milena MILTON 2017-11-30 2017-11-30 Fiordaliza SIDHU, [facility] Family [id number] [place] 13:00:00 13:00:00 t; Milena JIMENEZ Medicine evens Avalos M.D. 2017-11-21 2017-11-21 AppointAILIN [facility] [id number] [place] 11:00:00 11:00:00 t; JOSELO VARGAS Physi ci SHAOJIE, M.D. ans M.D. 2017-11-06 2017-11-06 Appointchika VARGAS [facility] UTP [id number] [place] 12:00:00 12:00:00 t; JOSELO VARGAS Physi ci SHAOJIE, M.D. ans M.D. 2017-08-30 2017-08-30 AILIN Hager Womens [id number] [place] 10:00:00 10:00:00 t; MARINO Blank Physic Milena Hernandez M.D. 2017-08-06 2017-08-06 AppointAILIN [facility] [id number] [place] 14:00:00 14:00:00 t; JOSELO VARGAS Physi Milena Pettit M.D. 2017-08-06 2017-08-06 AppointAILIN [facility] [id number] [place] 10:40:00 10:40:00 t; JORDI WONG, Ph ysMilena Khan MBud 2017-07-27 2017-07-27 Fiordaliza GARLANDIQAR, UTP Family [id number] [place] 10:30:00 10:30:00 t; Milena JIMENEZ ans AMBER, M.D. 2017-06-26 2017-06-26 Appointmen ALICIA, UTP UTP [id number] UT 13:30:00 13:30:00 t; JOSELO VARGAS Physi Milena Pettit M.D. 2017-04-24 2017-04-24 [facility] UTP [id number] [place] 12:00:00 12:00:00 t; JOSELO VARGAS Physi Milena Pettit M.D. 2017-01-11 2017-01-11 [facility] NA[facility]UM[facility] UTP UTP [id number] UT 13:45:00 13:45:00 t; Milena JIMENEZ Ph, ans AMBER, M.D. 2017-01-02 2017-01-02 [facility] V[facility] UTP [id number] UT 14:00:00 14:00:00 t; JOSELO VARGAS Physi ci SHAOJIE, M.D. ans M.D. 2017-01-02 2017-01-02 [facility] DA, UTP UTP [id number] UT 10:30:00 10:30:00 t; HIRAL ROBERSON Phy sici BERTHA, P.ASukhjinder horner P.ASukhjinder 2016-10-03 2016-10-03 [facility] NAHUM, UTP UTP [id number] [place] 11:00:00 11:00:00 t; Milena JIMENEZ Ph, ans AMBER, M.D. 2016-09-27 2016-09-27 Appointmen ALICIA, AILIN UTP [id number] [place] 13:00:00 13:00:00 t; JOSELO VARGAS Physi Milena Pettit M.D. 2016-09-20 2016-09-20 Samimen NAHUM, UTP UTP [id number] [place] 11:00:00 11:00:00 t; Milena JIMENEZ Ph, ans AMBER, M.D. 2016-09-05 2016-09-05 [facility], [facility] UTP [id number] [place] 14:00:00 14:00:00 t; Milena JIMENEZ Ph evens Mariee M.D. 2016-07-28 2016-07-28 [facility] NA[facility]UM, [facility] UTP [id number] UT 10:45:00 10:45:00 t; Milena JIMENEZ Ph evens Mariee M.D. 2016-07-28 2016-07-28 [facility] ESSCHIDI, [facility] UTP [id number] UT 09:30:00 09:30:00 t; BLANCA SCHMIDT, Ph Milena Cruz M.D. 2016-06-28 2016-06-28 [facility] VOWELS, [facility] UTP [id number] UT 10:00:00 10:00:00 t; VOWELS, Beth MABRY M.D. ans M.D. 2016-06-16 2016-06-16 [facility] ROMI BUTLER, [facility] UTP [id number] UT 14:30:00 14:30:00 t; Milena BRADY ans VERA, M.D. 2016-01-13 2016-01-13 [facility] UTP [id number] [place] 15:00:00 15:00:00 t; Titus calvillo Phys ici Montalvo-C M.D. ans hen, Rolf, M.D. 2015-11-16 2015-11-16 [facility] UTP [id number] UT 10:30:00 10:30:00 t; Titus calvillo Phys Titus Alvarez M.D., M.D. 2015-09-29 2015-09-29 [facility] MUNIRA [facility] UTP [id number] [place] 12:00:00 12:00:00 t; , Elham QUIROZ M.D., JAMES, M.D. 2015-07-26 2015-07-26 [facility] DELICIA, [facility] UTP [id number] UT 13:30:00 13:30:00 t; Jordi GUSMAN i, M.D. ans ROBERT, M.D. Results Test Description Test Time Test Comments Results Result Comments Source COMPREHENSIVE METABOLIC PANEL 2021-08-24 20:48:00 Test Item Value Reference Range Interpretation Comme nts SODIUM (test code = NA) 133 MMOL/L 133-145 N POTASSIUM (test code = K) 4.0 MMOL/L 3.6-5.2 N CHLORIDE (test code = CL) 104 MMOL/L 100-108 N CARBON DIOXIDE (test code = CO2) 30 MMOL/L 22-32 N GLUCOSE (test code = GLU) 107 MG/DL 65-99 H Re sults of this assay method may be falsely depressed orelevated if p atient is taking sulfasal azine. BLOOD UREA NITROGEN (test code = 9 MG/DL 6-20 N BUN) GLOMERULAR FILTRATION RATE (test 80 64-149 N Reporting units: code = GFR) mL/min/1.73m\S\ 2 (Modified MDRD Formula) CREATININE (test code = CREAT) 0.80 MG/DL 0.60-1.00 N TOTAL PROTEIN (test code = PROT) 6.7 G/DL 6.4-8.2 N ALBUMIN (test code = ALB) 3.8 G/DL 3.4-5.0 N CALCIUM (test code = CA) 8.3 MG/DL 8.7-10.5 L BILIRUBIN TOTAL (test code = 0.6 MG/DL 0.0-1.0 N BILT) SGOT/AST (test code = AST) 33 Units/L 15-37 N R esults of this assay method may be falsely depressed orelevated if p atient is taking sulfasal azine. SGPT/ALT (test code = ALT) 26 Units/L 30-65 L R esults of this assay method may be falsely depressed orelevated if p atient is taking sulfasal azine. ALKALINE PHOSPHATASE TOTAL (test 65 Units/L 50-136 N code = ALKP) Coronavirus 2018 nCoV [id number] 20:47:00 Test Item Value Reference Range Interpretation Comments Coronavirus 2018 Positive Negative A ID NOW COVI D-19 assay nCoV Bedside (test performed on the ID NOW code = [id number]) Instrum ent lala rapid molecular in vi tro diagnostic test utilizing anisothermal nu cleic acid amplification t echnology intendedfor the qualitative det ection of nucleic acid fr om [id number] v iral RNA in direct nasal , nasopharyngeal orthroat swabs and nasal , nasopharyngeal or throat swabseluted in viral transport media from individuals who aresuspected of COVID-19 by their health care provider. Negat mari results should be treated as presumptive and, ifinconsistent with clinical signs and symptoms or nec essaryfor patient managem ent, should be teste d with differentauthor ized or cleared molecul ar tests. Negative result s donot preclude SARS-C oV-2 infection and s hould not be used asthe s ole basis for patient man agement decisions. Negativeresults should be considered in t he context of a patient'sr ecent exposures, hist ory and presence of cli nical signs andsympto ms consistent with COVID-19.Result s are for the identificat ion of SARS-CoV-2 RNA. For Use Under an Emerge ncy Use Authorization ( EUA) Only Negative result s do not preclude SARS-C oV-2 infection andsh ould not be used as the sole basis for patient managementdecis ions. Negative result s must be combined with clinicalobserva tions, patient history , and epidemiological informatio n. CBC W/AUTO [id number] 20:40:00 Test Item Value Reference Range Interpretation Comments WHITE BLOOD CELL (test code = 2.00 x10 3/uL 4.80-10.80 L WBC) RED BLOOD CELL (test code = 4.31 x10 6/uL 4.2-5.4 N RBC) HEMOGLOBIN (test code = HGB) 12.2 G/DL 12.0-16.0 N HEMATOCRIT (test code = HCT) 38.6 % 37-47 N MEAN CELL VOLUME (test code = 89.6 FL 81-99 N MCV) MEAN CELL HGB (test code = MCH) 28.3 PG 27-31 N MEAN CELL HGB CONCENTRATION 31.6 G/DL 33-37 L (test code = MCHC) RED CELL DISTRIBUTION WIDTH 13.5 % 11.5-14.5 N (test code = RDW) PLATELET COUNT (test code = 138 x10 3/uL 150-450 L PLT) MEAN PLATELET VOLUME (test code 9.4 FL 7.4-10.4 N = MPV) NEUTROPHIL % (test code = NT%) 67.9 % 42-86 N LYMPHOCYTE % (test code = LY%) 20.7 % 24-44 L MONOCYTE % (test code = MO%) 11.4 % 0.0-4.0 H EOSINOPHIL % (test code = EO%) % 0.0-2.7 BASOPHIL % (test code = BA%) % 0.0-0.5 NEUTROPHIL # (test code = NT#) 1.40 x10 3/uL 1.8-7.7 L LYMPHOCYTE # (test code = LY#) 0.40 x10 3/uL 1.0-4.8 L MONOCYTE # (test code = MO#) 0.20 x10 3/uL 0.0-0.8 N EOSINOPHIL # (test code = EO#) x10 3/uL 0.0-0.5 BASOPHIL # (test code = BA#) x10 3/uL 0.0-0.2 - XR CHEST 1 [id number] 20:28:00 [facility] 1985 Sex: F Patient Name: CHRISTA MIRELES Unit No: [id number] EXAMS: CPT CODE: [id number] XR CHEST 1 V 63297 Reason: cough EXAM: - XR CH EST 1 V HISTORY: Cough and fever. COMPARISON: None available time of interpretation. FINDINGS: Single AP view of the chest is provided. Heart size and vascularity are within normal limits for the position. There is no evidence of a focal consolidation. Limited exam due to overlying soft tissues in position. There is no pleural effusion or pneumothorax. There is no definite acute osseous abnormality. Mild dextroscoliosis in midthoracic spine. IMPRESSION: No definite focal consolidation. at 2027 Reported and signed by: Cal Galvan MD CC: Clarissa Montesinos DO Technologist: Alexandra Cardoza CT Trscrpt Dt/ (2027)[id number] Orig Print D/T: S: 08/24/2021 (2030) [place] FSED NAME: CHRISTA MIRELES [address] PHYS: Clarissa [place] [id number] : 1985 AGE: 36 SEX:F LOC: D.RER PHONE #: EXAM DATE: 08/24/2021 STATUS: PRE ER FAX #: RAD NO: DC Dt: PAGE 1 Signed Report[QL] MICROALBUMIN, RANDOM URINE (W/CREATININE)2019-10-23 11:31:00 Test Item Value Reference Range Interpretation Comments CREATININE, RANDOM 29 mg/dl 20-275 N URINE (test code = CREATININE, RANDOM URINE) MICROALBUMIN (test 0.3 mg/dl N Reference RangeNot code = established MICROALBUMIN) MICROALBUMIN/CREATI 10 {MCG/MG <30 N The ADA defines NINE RATIO, RANDOM CRE} abnormali ties in URINE (test code = albuminex cretion as MICROALBUMIN/CREATI follows: Category NINE RATIO, RANDOM Result (mcg/mg URINE) creatinine) Nor mal <30Microalbumin uria 30-299 Clin ical albuminuria > OR = 300 The ADA rec ommends that at least t wo of threespecimens collected withi n a 3-6 month period be abnormal before consider ing a patient to bewi thin a diagnostic christin gory. [facility][QL] LIPID [id number] 13:21:00 Test Item Value Reference Range Interpretation Comments CHOLESTEROL, TOTAL; 155 mg/dl <200 N Normal (test code = 2093-3) HDL CHOLESTEROL; 44 mg/dl > OR = 50 Below Low Threshold (test code = 2085-9) TRIGLYCERIDES; 64 mg/dl <150 N Normal (test code = 2571-8) LDL-CHOLESTEROL; 96 {MG/DL N Reference r jeannie: Normal (test code = JAX} <100 Sarmad irable range 43377-4) <100 mg/dL for primary prevent ion; <70 [...] SS et al . LEONARDO. 2013;310( 19): 8401-9547 ([email or web address] [email or web address]) CHOL/HDLC RATIO 3.5 {CALC} <5.0 N (test code = CHOL/HDLC RATIO) NON HDL CHOLESTEROL 111 {MG/DL <130 N For zuly ents with (test code = NON HDL JAX} diabete s plus 1 CHOLESTEROL) major ASCVD ris k factor, treatin g to a non-HDL-C goa l of <100 mg/dL (LDL -C of <70 mg/dL) is considered a therapeutic opt ion. [facility][QL] HEPATITIS C [id number] 13:21:00 Test Item Value Reference Range Interpretation Comments HEPATITIS C NON-REACTIVE NON-REACTIVE N ANTIBODY; Normal (test code = 71777-1) SIGNAL TO CUT-OFF 0.02 <1.00 N HCV antibo dy was (test code = SIGNAL non-reac tive. There TO CUT-OFF) is no laborator y evidence of HCV infection. In m ost cases, no furth er action is requi red. However,if rece nt HCV exposure is suspected, a te st for HCV RNA([place] [address]) is sugge sted. For additional information ple ase refer tohttp://educat ion.IActive. [employer]/fa q/HJM21p6(This link is being provid ed for informational/e ducati onal purposes o nly.) [facility]] HEMOGLOBIN [id number] 13:21:00 Test Item Value Reference Range Interpretation [...] di abetes in children. Ac cording to [place] (ADA)guidelines , hemoglobin A1c <7.0% represents optimalcontrol in non- di abetic patients. Differentmetric s may apply to specif ic patient populat ions. Standards of Me dical Care in Diabete s(ADA). [facility]] URINALYSIS, [id number] 16:20:01 Test Item Value Reference Range Interpretation Comments UA Turbidity (test code = 63356-9) Clear Clear UA Spec Grav (test code = 5810-7) 1.012 <=1.030 UA pH (test code = 5803-2) 7.0 5.0-8.0 UA Protein (test code = 85926-0) Negative Negative UA Glucose (test code = 12300-1) Negative Negative UA Ketones (test code = 64780-4) Negative Negative UA Bili (test code = 5770-3) Negative Negative UA Blood (test code = 5794-3) Negative Negative UA Nitrite (test code = 5802-4) Negative Negative UA Leuk Est (test code = 5799-2) Negative Negative UA RBC (test code = 60473-4) 1 {/HPF} 0-2 UA WBC (test code = 04200-2) <1 0-5 UA Bacteria (test code = 72409-2) Occasional None Seen UA Mucus (test code = 8247-9) Few None Seen UA Sq Epi (test code = 02704-2) Occasional Few UA Color (test code = 5778-6) Ltyellow UROBILINOGEN (test code = 34685-1) <=1.0 0.1-1.0 [facility]] CULTURE, URINE, [id number] 16:20:01 Test Item Value Reference Range Interpretation Comments FINAL REPORT (test code = FINAL No Growth REPORT) [facility] - [id number] 00:00:00 Test Item Value Reference Range Interpretation Comments Case (test code = Click ImageLink button N Case) for report. Specimen 1 (test code Click ImageLink button N = Specimen 1) for report. [facility] Pel[facility] with Pelvis Transvaginal [id number] 12:40:00 PROCEDURE INFORMATION:Exam: US Pelvis Complete, Transabdominal and US [...] ovarian cyst.Manolo Mckeon MD On 04/29/2019 15:51:15; [id number]--Hmod by: Manolo Mckeon MDDictated Date/time: 04/29/19 15:51Electronically Signed by: Manolo Mckeon MD 04/29/2014:51FINAL REPORTUT [facility]] CULTURE, URINE, [id number] 03:00:00 Test Item Value Reference Range Interpretation Comments CULTURE (test code See Comment CULTURE, URINE, ROUTINE = CULTURE) MICRO NUMBER : [id number] TEST STATUS: FINAL SPEC IMEN SOURCE: URINE SPECIMEN QUALIT Y: ADEQUATE RESUL T: No GrowthNO COLLECTION DATE RECEIVED. WE HUIZAR VE USEDTHE DATE TH E SPECIMEN WAS RE CEIVED BY THISLAB[facility]AST. [facility] DATE . IF THISIS INCORREC T, PLEASE CONTACT CLIENT SERVICES.PHONE NUMBER: [phone] [facility]] Urine Dipstick (In Office)2018-12-31 00:00:00 Test Item Value Reference Range Interpretation Comments Glucose (test code = Glucose) negative N LEUKOCYTES (test code = LEUKOCYTES) negative N NITRITE; Normal (test code = negative N 81473-1) UROBILINOGEN; Normal (test code = 0.2 N 16985-1) PROTEIN; Normal (test code = negative N 31983-9) pH (test code = pH) 5.5 N URINE BLOOD; Normal (test code = trace N 78096-8) SPECIFIC GRAVITY; Normal (test code 1.030 N = 2965-2) KETONES; Normal (test code = negative N 00476-9) BILIRUBIN; Normal (test code = negative N 78928-8) [facility]] URINALYSIS, [id number] 08:48:00 Test Item Value Reference Range Interpretation Comments COLOR; Normal (test code = 5778-6) YELLOW YELLOW N APPEARANCE (test code = APPEARANCE) CLEAR CLEAR N SPECIFIC GRAVITY; Normal (test code 1.015 1.001-1.035 N = 2965-2) PH; Normal (test code = 2756-5) 8.0 5.0-8.0 N GLUCOSE; Normal (test code = NEGATIVE NEGATIVE N 1547-9) BILIRUBIN; Normal (test code = NEGATIVE NEGATIVE N 35738-9) KETONES; Normal (test code = NEGATIVE NEGATIVE N 81272-1) OCCULT BLOOD; Abnormal (test code = 3+ NEGATIVE A 25088-7) PROTEIN; Abnormal (test code = 1+ NEGATIVE A 27359-7) NITRITE; Normal (test code = NEGATIVE NEGATIVE N 45079-2) LEUKOCYTE ESTERASE (test code = NEGATIVE NEGATIVE N LEUKOCYTE ESTERASE) WBC; Normal (test code = 6690-2) 0-5 < OR = 5 N RBC; Abnormal (test code = 789-8) 3-10 < OR = 2 A SQUAMOUS EPITHELIAL CELLS (test 0-5 < OR = 5 code = 77724-9) BACTERIA; Abnormal (test code = FEW NONE SEEN A 630-4) HYALINE CAST; Normal (test code = NONE SEEN NONE SEEN N 44441-9) [facility]] CULTURE, URINE, [id number] 08:48:00 Test Item Value Reference Range Interpretation Comments CULTURE (test See Comment A CULTURE, URINE , ROUTINE code = CULTURE) MICRO NUMB ER: [id number] TEST STATUS: FINAL SPECI MEN SOURCE: URINE [...] cefprozil, cefu roxime, cephalexin a nd loracarbef. [facility]] LIPID [id number] 11:26:00 Test Item Value Reference Range Interpretation Comments CHOLESTEROL, TOTAL; 187 mg/dl <200 N Normal (test code = 2093-3) HDL CHOLESTEROL; 53 mg/dl >50 N Normal (test code = 2085-9) TRIGLYCERIDES; 74 mg/dl <150 N Normal (test code = 2571-8) LDL-CHOLESTEROL; 117 {MG/DL Reference r jeannie: Above High Threshold AJX} <100 De sirable range (test code = <100 mg/[place] [address]-3) primary prevent ion; <70 mg/dL for patients with C HD or diabetic patien ts with > or = 2 C HD risk factors. L DL-C is now calculat ed using the Jacque calculation, wh ich is a validated novel method providin g better accuracy than the Friedewald equation in the estimation of L DL-C. Abran MCMAHAN et al . LEONARDO. 2013;310( 19): 1314-7998 (http://educati on.[employer]. com/f aq/UYV686) CHOL/HDLC RATIO 3.5 {CALC} <5.0 N (test code = CHOL/HDLC RATIO) NON HDL CHOLESTEROL 134 {MG/DL <130 For zuly ents with (test code = NON HDL JAX} diabete s plus 1 CHOLESTEROL) major ASCVD ris k factor, treatin g to a non-HDL-C goa l of <100 mg/dL (LDL -C of <70 mg/dL) is considered a therapeutic opt ion. [facility]] CMP [id number] 11:26:00 Test Item Value Reference Range Interpretation Comments GLUCOSE; Normal 86 mg/dl 65-139 N Non-fasting (test code = reference inter [place] 1547-9) UREA NITROGEN (BUN) 11 mg/dl 7-25 N (test code = UREA NITROGEN (BUN)) CREATININE (test 0.60 mg/dl 0.50-1.10 N code = CREATININE) eGFR NON- 118 {ML/MIN/1.7} > OR = 60 N MOZAMBICAN (test code = eGFR NON-) eGFR 137 {ML/MIN/1.7} > OR = 60 N MOZAMBICAN (test code = eGFR ) BUN/CREATININE NOT [...] mg/dl 0.2-1.2 N Normal (test code = 07512-7) ALKALINE PHSPHATASE 58 u/l 33-115 N (test code = ALKALINE PHSPHATASE) AST; Normal (test 18 u/l 10-30 N code = 1916-6) ALT; Normal (test 12 u/l 6-29 N code = 1742-6) [facility]] TSH, 3RD GENERATION W/REFLEX TO [id number] 11:26:00 Test Item Value Reference Range Interpretation Comments TSH, 3RD GENERATION 0.89 {MIU/L} N Referenc e Range W/REFLEX TO FT4 (test > or code = TSH, 3RD = 20 Years GENERATION W/REFLEX 0.40-4.5 0 TO FT4) Range s First trim chantel 0.26-2.66 Second trimest er 0.55-2.73 Third trimester 0.43-2.91 [facility]] URINALYSIS, [id number] 16:42:01 Test Item Value Reference Range Interpretation Comments UA Turbidity (test code = 95491-3) Clear Clear UA Spec Grav (test code = 5810-7) 1.003 <=1.030 UA pH (test code = 5803-2) 6.0 5.0-8.0 UA Protein (test code = 99237-6) Negative Negative UA Glucose (test code = 05849-4) Negative Negative UA Ketones (test code = 33550-7) Negative Negative UA Bili (test code = 5770-3) Negative Negative UA Blood (test code = 5794-3) Negative Negative UA Nitrite (test code = 5802-4) Negative Negative UA Leuk Est (test code = 5799-2) Negative Negative UA WBC (test code = 42738-1) <1 0-5 UA Bacteria; Abnormal (test code = Many None Seen A 92916-6) UA Sq Epi (test code = 63839-0) Occasional Few UA Color (test code = 5778-6) Ltyellow UROBILINOGEN (test code = 15258-4) <=1.0 0.1-1.0 [facility]] CULTURE, URINE, [id number] 16:42:01 Test Item Value Reference Range Interpretation Comments FINAL REPORT (test Specimen contains 3 or code = FINAL more potential pathogens; REPORT) recommend correlation withurinalysis; if catheterized specimen recommend removal and recollection. Ifclinical situation warrants please call the laboratory for further testing. COMicrobiology [phone]. [facility]] Urine Dipstick (In Office)2017-11-30 13:20:00 Test Item Value Reference Range Interpretation Comments Glucose (test code = Glucose) N N LEUKOCYTES (test code = LEUKOCYTES) N N NITRITE; Normal (test code = 03422-0) N N UROBILINOGEN; Normal (test code = N N 34686-2) PROTEIN; Normal (test code = 21110-0) N N pH (test code = pH) 6.0 N URINE BLOOD; Normal (test code = N N 54089-8) SPECIFIC GRAVITY; Normal (test code = 1.015 N 2965-2) KETONES; Normal (test code = 64696-7) N N BILIRUBIN; Normal (test code = N N 14743-7) COLOR URINE; Normal (test code = YELLOW N 5778-6) APPEARANCE; Normal (test code = CLEAR N 5767-9) [facility]] Urine Dipstick (In Office)2017-08-30 10:11:00 Test Item Value Reference Range Interpretation Comments LEUKOCYTES (test code = LEUKOCYTES) Negative N NITRITE; Normal (test code = Negative N 89977-6) PROTEIN; Normal (test code = Negative N 43590-4) URINE BLOOD; Abnormal (test code = Trace A 94352-0) KETONES; Normal (test code = Negative N 47016-9) GLUCOSE; Normal (test code = 1547-9) Negative N [facility]
[2021-08-26 22:46] LABS: Hematocrit 38.8 % (36.0-45.0); Lymphocytes % 19.7 % (15.3-44.8); MPV 8.5 fL (7.6-11.3); RBC Red Blood Cell Count 4.45 M/uL (3.86-4.86)
[2021-08-26 23:01] LABS: Potassium 3.6 mmol/L (3.5-5.1)
[2021-08-26 23:04] LABS: Troponin High Sensitivity 162.5 pg/mL (<58.9)
[2021-08-26] MEDS ORDERED: IPRATROPIUM BROM 0.5MG/2.5ML ONE (23:37)
[2021-08-26] MEDS ORDERED: ALBUTEROL 2.5 MG/3 ML NEB SOL ONE (23:37)
--- NOTE | 2021-08-27 00:58 | ER ---
Nurse's Notes [facility] Name: Jenn Horan Age: 36 yrs Sex: Female : 1985 Arrival Date: 08/26/2021 Time: 20:59 Bed 20 Private MD: Diagnosis: elevated troponin;dizziness;symptomatic bradycardia;Chest pain Presentation: 08/26 21:00 Chief complaint: EMS states: diagnosed with covid on Sunday. today started getting lg3 dizzy and having a persistent headache. mom states that heart rate has been in the 30's for most of the evening. pt complaints of chest pressure. Coronavirus screen: Client denies travel out of the [place] in the last 14 days. Client reports previous positive COVID test result. Date of collection: August 24, 2021. Ebola Screen: No symptoms or risks identified at this time. Initial Sepsis Screen: Does the patient meet any 2 criteria? No. Patient's initial sepsis screen is negative. Does the patient have a suspected source of infection? No. Patient's initial sepsis screen is negative. Risk Assessment: Do you want to hurt yourself or someone else? Patient reports no desire to harm self or others. Onset of symptoms was August 26, 2021. 21:00 Method Of Arrival: EMS: [facility] lg3 21:00 Acuity: SVETLANA 3 lg3 Triage Assessment: 22:45 General: Appears in no apparent distress. comfortable, Behavior is calm, cooperative. lg3 Pain: Complains of pain in chest Pain currently is 5 out of 10 on a pain scale. Quality of pain is described as pressure. EENT: No deficits noted. No signs and/or symptoms were reported regarding the EENT system. Neuro: [place] Agitation-Sedation Scale (RASS): 0 - Alert and Calm Level of Consciousness is awake, alert, obeys commands, Oriented to person, place, time, situation. Cardiovascular: Reports lightheadedness, Capillary refill < 3 seconds Clubbing of nail beds is absent JVD is absent Patient's skin is warm and dry. Rhythm is sinus bradycardia. Respiratory: Reports cough that is Parent/caregiver reports the patient having covid positive as of 08/24/21. GI: No deficits noted. No signs and/or symptoms were reported involving the gastrointestinal system. Abdomen is round non-distended. : No deficits noted. No signs and/or symptoms were reported regarding the genitourinary system. Derm: No deficits noted. No signs and/or symptoms reported regarding the dermatologic system. Skin is intact, is healthy with good turgor, Skin is dry, Skin temperature is warm. Musculoskeletal: Parent/caregiver report the patient having cerebral palsy. 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 N/A - Hysterectomy lg3 Historical: - Allergies: 22:45 Biaxin; lg3 22:45 Cefaclor; lg3 22:45 Demerol; lg3 22:45 hydromorphone HCl; lg3 22:45 meperidine HCl; lg3 22:45 Morphine; lg3 22:45 NSAIDS (Non-Steroidal Anti-Inflammatory Drug); lg3 22:45 PENICILLINS; lg3 - Home Meds: 22:45 Abilify 15 mg Oral tab once daily [Active]; Corlanor 7.5 mg Oral tab 1 tab 2 times per lg3 day [Active]; fluoxetine 20 mg Oral tab 1 tab once daily [Active]; Meclizine Oral [Active]; Plavix 75 mg Oral tab once daily [Active]; - PMHx: 22:45 Asthma; Cerebral Palsy; Erythromelalgia; GERD; Hearing Loss; Incomplete R BBB; POTS lg3 "when having an infection"; reactive airway; - PSHx: 22:45 lung; Tonsillectomy; lg3 22:50 Appendectomy; Cholecystectomy; hysterectomy; lg3 - Immunization history:: Adult Immunizations up to date, Client reports having NOT received the Covid vaccine. - Social history:: Smoking status: Patient denies any tobacco usage or history of. Patient/guardian denies using alcohol, street drugs. Screenin:51 Abuse screen: Denies threats or abuse. Denies injuries from another. Nutritional lg3 screening: No deficits noted. Tuberculosis screening: No symptoms or risk factors identified. Fall Risk None identified. Assessment: 22:10 General: see triage assessment . lg3 22:52 Pain: Pain does not radiate. Pain began 4 hours ago. lg3 22:53 Reassessment: Patient appears in no apparent distress at this time. No changes from lg3 previously documented assessment. Patient and/or family updated on plan of care and expected duration. Pain level reassessed. Patient is alert, oriented x 3, equal unlabored respirations, skin warm/dry/pink. 23:59 Reassessment: Patient appears in no apparent distress at this time. No changes from lg3 previously documented assessment. Patient and/or family updated on plan of care and expected duration. Pain level reassessed. Patient is alert, oriented x 3, equal unlabored respirations, skin warm/dry/pink. 08/27 02:56 Reassessment: Patient appears in no apparent distress at this time. No changes from lg3 previously documented assessment. Patient and/or family updated on plan of care and expected duration. Pain level reassessed. Patient is alert, oriented x 3, equal unlabored respirations, skin warm/dry/pink. Patient states feeling better. 06:12 Reassessment: Patient appears in no apparent distress at this time. No changes from lg3 previously documented assessment. Patient and/or family updated on plan of care and expected duration. Pain level reassessed. Patient is alert, oriented x 3, equal unlabored respirations, skin warm/dry/pink. Patient states symptoms have improved. 06:13 General: attempted to call report. ELENA Greenfield not available. provided call back lg3 number . Vital Signs: 08/26 21:00 BP 141 / 90; Pulse 38; Resp 16; Temp 98.1(O); Pulse Ox 97% on 2 lpm NC; Pain 5/10; lg3 22:00 BP 133 / 78; Pulse 33; Resp 16; Pulse Ox 95% on 2 lpm NC; lg3 08/27 00:00 BP 122 / 69; Pulse 48; Resp 15; Pulse Ox 96% on 2 lpm NC; lg3 02:56 BP 140 / 85; Pulse 37; Resp 15; Pulse Ox 96% on R/A; lg3 05:00 BP 128 / 83; Pulse 35; Resp 14; Pulse Ox 96% on R/A; lg3 06:00 BP 138 / 80; Pulse 35; Resp 12; Pulse Ox 100% on R/A; lg3 ED Course: 08/26 20:59 Patient arrived in ED. bb 21:00 Jon Fernandez DO is Attending Physician. ms3 21:20 Meghan Sheridan, ELENA is Primary Nurse. lg3 22:35 XRAY Chest (1 view) In Process Unspecified. EDMS 22:35 Inserted saline lock: 20 gauge in right antecubital area, using aseptic technique. lg3 Blood collected. 22:35 Basic Metabolic Panel Sent. lg3 22:35 CBC with Diff Sent. lg3 22:35 Troponin HS Sent. lg3 22:45 Triage completed. lg3 22:45 Arm band placed on right wrist. lg3 22:51 Oxygen administration via nasal cannula \\T\\ 2L/min Response to oxygen therapy: symptoms lg3 improved. 22:51 Patient has correct armband on for positive identification. Bed in low position. Call lg3 light in reach. Side rails up X2. Client placed on continuous cardiac and pulse oximetry monitoring. NIBP monitoring applied. teletypesetter monitor on. Door closed. Noise minimized. Warm blanket given. Family accompanied patient. 08/27 01:33 Initiated transfer to [facility] and spoke to [facility]. she advised me that there wm would be a delay due to their system being down, estimated time is 314. 03:41 Troponin High Sensitivity Sent. lg3 03:46 Bhupendra called back to let us know that their system was still down, but that they had a wm bed at the [facility]. Pt stated that was fine. 04:00 Pt accepted for transfer by Dr Omar Juarez, going to Rm 208. wm 05:12 COVID-19 SARS RT PCR (Document "Date of Onset" if Symptomatic) Sent. wm 05:22 SARS-COV-2 RT PCR (Document "Date of Onset" if Symptomatic) Sent. lg3 06:44 No provider procedures requiring assistance completed. Patient transferred, IV remains lg3 in place. intact, No redness/swelling at site. Administered Medications: 08/26 23:37 Drug: AtroVENT (ipratropium) Aerosol 0.5 mg Route: Inhalation; lg3 23:37 Drug: Albuterol 2.5 mg Route: Inhalation; lg3 Medication: 22:52 VIS not applicable for this client. lg3 Outcome: 08/27 00:58 ER care complete, transfer ordered by . ms3 06:44 Transferred by ground EMS to [facility], Transfer form completed. lg3 06:44 Condition: stable 06:44 Instructed on the need for transfer, Demonstrated understanding of instructions. 06:44 Patient left the ED. lg3 Signatures: Dispatcher [employer] EDMS Jenn Palomo RN RN Meghan Cloud RN RN lg3 Jon Fernandez, DO ms3 Krysta Greene Corrections: (The following items were deleted from the chart) 03:46 01:33 Initiated transfer to [facility] and spoke to [facility] wm
--- NOTE | 2021-08-27 00:59 | EDPHYS ---
Physician Documentation [facility] Name: Jenn Horan Age: 36 yrs Sex: Female : 1985 Arrival Date: 08/26/2021 Time: 20:59 Bed 20 Private MD: ED Physician Jon Fernandez HPI: 08/26 23:18 This 36 yrs old Female presents to ER via EMS with complaints of Irregular Pulse. ms3 23:18 The patient or guardian reports chest pain that is located primarily in the substernal ms3 area. The pain does not radiate. Associated signs and symptoms: Pertinent positives: dizziness. The chest pain is described as "Pain". Duration: The patient or guardian reports a single episode, that is still ongoing, and unchanged. Modifying factors: The symptoms are alleviated by nothing. the symptoms are aggravated by nothing. Severity of pain: At its worst the pain was moderate in the emergency department the pain is unchanged is a 5 / 10. 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 lg3 Historical: - Allergies: 22:45 Biaxin; lg3 22:45 Cefaclor; lg3 22:45 Demerol; lg3 22:45 hydromorphone HCl; lg3 22:45 meperidine HCl; lg3 22:45 Morphine; lg3 22:45 NSAIDS (Non-Steroidal Anti-Inflammatory Drug); lg3 22:45 PENICILLINS; lg3 - Home Meds: 22:45 Abilify 15 mg Oral tab once daily [Active]; Corlanor 7.5 mg Oral tab 1 tab 2 times per lg3 day [Active]; fluoxetine 20 mg Oral tab 1 tab once daily [Active]; Meclizine Oral [Active]; Plavix 75 mg Oral tab once daily [Active]; - PMHx: 22:45 Asthma; Cerebral Palsy; Erythromelalgia; GERD; Hearing Loss; Incomplete R BBB; POTS lg3 "when having an infection"; reactive airway; - PSHx: 22:45 lung; Tonsillectomy; lg3 22:50 Appendectomy; Cholecystectomy; hysterectomy; lg3 - Immunization history:: Adult Immunizations up to date, Client reports having NOT received the Covid vaccine. - Social history:: Smoking status: Patient denies any tobacco usage or history of. Patient/guardian denies using alcohol, street drugs. ROS: 23:18 Constitutional: Negative for fever, and chills. ms3 23:18 Neck: Negative for injury, pain, and swelling, Respiratory: Negative for shortness of breath, cough, wheezing, and pleuritic chest pain, Abdomen/GI: Negative for abdominal pain, nausea, vomiting, diarrhea, and constipation, Skin: Negative for injury, rash, and discoloration. 23:18 Cardiovascular: Positive for chest pain, palpitations, Bradycardia. 23:18 Neuro: Positive for dizziness. 23:18 All other systems are negative. Exam: 21:41 ECG was reviewed by the Attending Physician. ms3 23:18 Constitutional: This is a well developed, well nourished patient who is awake, alert, ms3 and in no acute distress. Head/Face: Normocephalic, atraumatic. Neck: Trachea midline, no cervical lymphadenopathy. Supple, full range of motion without nuchal rigidity, or vertebral point tenderness. No Meningismus. Abdomen/GI: Soft, non-tender, with normal bowel sounds. No distension or tympany. No guarding or rebound. No evidence of tenderness throughout. Back: No spinal tenderness. No costovertebral tenderness. Full range of motion. Skin: Warm, dry with normal turgor. Normal color with no rashes, no lesions, and no evidence of cellulitis. Psych: Awake, alert, with orientation to person, place and time. Behavior, mood, and affect are within normal limits. Vital Signs: 21:00 BP 141 / 90; Pulse 38; Resp 16; Temp 98.1(O); Pulse Ox 97% on 2 lpm NC; Pain 5/10; lg3 22:00 BP 133 / 78; Pulse 33; Resp 16; Pulse Ox 95% on 2 lpm NC; lg3 06/04 00:00 BP 122 / 69; Pulse 48; Resp 15; Pulse Ox 96% on 2 lpm NC; lg3 02:56 BP 140 / 85; Pulse 37; Resp 15; Pulse Ox 96% on R/A; lg3 05:00 BP 128 / 83; Pulse 35; Resp 14; Pulse Ox 96% on R/A; lg3 06:00 BP 138 / 80; Pulse 35; Resp 12; Pulse Ox 100% on R/A; lg3 MDM: 08/26 21:00 Patient medically screened. ms3 23:17 ED course: Discussed case with Dr Garrett who recommends [place] the [place] [facility] [place]. 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 Awaiting call back. 23:18 Differential diagnosis: abnormal EKG, acute myocardial infarction, coronary artery ms3 disease chest wall pain. 08/27 00:56 ED course: No returned call from Dr Power. Spoke with tower air traffic control specialist resident for [place] [facility] [place]. Patient wishes to be transferred to [facility] where her physicians are located.. 00:59 ED course: Patient is allergic to ASA, therefore, asa not given.. ms3 04:04 ED course: Discussed case with Dr Perales and he does not manage acute coronary pa3 syndrome. Patient can be transferred to a cardiology service.. 04:05 HEART Score: History: Slightly Suspicious (0), ECG: Normal (0), Age: < or = 45 years ms3 (0), Risk Factors: No Risk Factors Known (0), Troponin: > 1 and < 3 x normal limit (1), Total Score = 1. 04:05 Data reviewed: vital signs, nurses notes, lab test result(s), EKG, radiologic studies. pa3 Data interpreted: ekg monitor: rate is 36 beats/min, rhythm is sinus bradycardia, with no ectopy, Interpretation: bradycardia. Counseling: I had a detailed discussion with the patient and/or guardian regarding: the historical points, exam findings, and any diagnostic results supporting the discharge/admit diagnosis, lab results, radiology results, the need to transfer to another facility, for higher level of care. 08/26 21:01 Order name: Basic Metabolic Panel; Complete Time: 23:08 ms3 08/26 21:01 Order name: CBC with Diff; Complete Time: 23:03 ms3 08/26 21:01 Order name: Troponin HS; Complete Time: 23:08 ms3 08/27 01:01 Order name: Urine Dipstick-Ancillary; Complete Time: 01:02 EDMS 08/27 03:19 Order name: Troponin High Sensitivity; Complete Time: 04:15 lg3 08/27 04:41 Order name: COVID-19 SARS RT PCR (Document "Date of Onset" if Symptomatic) 08/26 21:01 Order name: XRAY Chest (1 view) pa3 08/26 21:01 Order name: EKG; Complete Time: 22:11 ms3 08/26 21:01 Order name: Cardiac monitoring; Complete Time: 21:53 ms3 08/26 21:01 Order name: EKG - Nurse/Tech; Complete Time: 21:53 ms3 08/26 21:01 Order name: IV Saline Lock; Complete Time: 22:35 ms3 04 05:15 Order name: SARS-COV-2 RT PCR (Document "Date of Onset" if Symptomatic) wm 08/26 21:01 Order name: Labs collected and sent; Complete Time: 22:35 ms3 08/26 21:01 Order name: O2 Per Protocol; Complete Time: 21:53 ms3 08/26 21:01 Order name: O2 Sat Monitoring; Complete Time: 21:53 ms3 08/27 00:26 Order name: Urine Dipstick-Ancillary (obtain specimen); Complete Time: 01:02 lg3 EC/03 21:41 Rate is 36 beats/min. Rhythm is regular. QRS [place] is Normal. MA interval is prolonged ms3 at 222 msec. QRS interval is normal. Clinical impression: Sinus bradycardia. Interpreted by me. Administered Medications: 23:37 Drug: AtroVENT (ipratropium) Aerosol 0.5 mg Route: Inhalation; lg3 23:37 Drug: Albuterol 2.5 mg Route: Inhalation; lg3 Disposition Summary: 08/27/21 00:58 Transfer Ordered Transfer Location: [facility] ms3 Reason: Higher level of care ms3 Condition: Stable ms3 Problem: new ms3 Symptoms: are unchanged ms3 Accepting Physician: .(08/27/21 06:44) lg3 Diagnosis - elevated troponin ms3 - dizziness ms3 - symptomatic bradycardia ms3 - Chest pain ms3 Forms: - Medication Reconciliation Form ms3 - SBAR form ms3 Signatures: Dispatcher [employer] Ashok Nevarez PA PA jmm Gibson, Lacie, RN RN lg3 Jon Fernandez DO DO ms3 Corrections: (The following items were deleted from the chart) 08/27 06:44 00:58 . ms3 lg3
[2021-08-27 01:01] LABS: Urine Blood Negative (Negative); Urine Glucose Negative (Negative); Urine Protein Negative (Negative)
[2021-08-27 07:06] VITALS: TEMP 98.1
[2021-08-27 07:27] VITALS: BP 138/80; O2SAT 100
--- NOTE | 2021-08-28 12:52 | EKG ---
Test Date: 2021-08-26 Test Time: 21:41:54 Lube Man: MEASUREMENT RESULTS: Intervals: Rate: 36 MD: 222 QRSD: 100 QT: 478 QTc: 369 [place]: P: 1 MD: 222 QRS: 266 T: 44 INTERPRETIVE STATEMENTS: Marked sinus bradycardia with sinus arrhythmia with 1st degree AV block Right superior axis deviation Incomplete right bundle branch block Right ventricular hypertrophy Nonspecific ST and T wave abnormality Abnormal ECG Compared to ECG 11/16/2018 10:44:18 First degree AV block now present Right superior axis now present Incomplete right bundle-branch block now present Right ventricular hypertrophy now present ST (T wave) deviation now present Sinus rhythm no longer present Myocardial infarct finding no longer present Electronically Signed On 08-28-21 12:51:47 CDT by Toni Garrett
--- NOTE | 2021-08-29 12:01 | RAD REPORT ---
EXAM DESCRIPTION: RAD - Chest Single View - 08/26/2021 10:33 pm CLINICAL HISTORY: 36-year-old female with chest pain. TECHNIQUE: Single view, AP portable chest was obtained. COMPARISON: None. FINDINGS: Enlarged cardiac and mediastinal silhouette. Cardiomegaly with or without pericardial effu nelli. Diffuse opacification of the bilateral lower lobes concerning for pleural effusion with or without co nsolidation/atelectasis. Low lung volumes. No pneumothoraces. The visualized bones are within normal limits. IMPRESSION: 1. Cardiomegaly with or without pericardial effusion. 2. Diffuse opacification of the bilateral lower lobes concerning for pleural effusion with or witho ut consolidation/atelectasis. Electronically signed by: Ashley Chan MD 08/26/2021 10:58 PM CDT Due to temporary technical issues with the PACS/Fluency reporting system, reports are being signed by the in house radiologist without review as a courtesy to ensure prompt reporting. The interpreting r adiologist is fully responsible for the content of the report.
== END 2021-08-27 06:44 | disposition short-term general hospital (02) ==
LOC: ER 20:40
DX: R00.1 Bradycardia, unspecified (principal); R77.8 Other specified abnormalities of plasma proteins; R42 Dizziness and giddiness; U07.1 COVID-19; Z88.6 Allergy status to analgesic agent; Z88.0 Allergy status to penicillin; Z88.8 Allergy status to other drugs, medicaments and biological substances; J45.909 Unspecified asthma, uncomplicated; G80.9 Cerebral palsy, unspecified; I73.81 Erythromelalgia; K21.9 Gastro-esophageal reflux disease without esophagitis
CPT/HCPCS: 93005; 85025; 80048; 36415 ×2; 81003; 84484 ×2; 71045; 99285; U0003

== ENCOUNTER 2021-12-16 12:17 | Emergency (ER) | payer OTHER ==
--- OUTSIDE RECORDS SUMMARY | 2021-12-16 12:24 | XMS REPORT | Continuity of Care Document ---
:1985 Author Organization [facility] t Address [address] [place] [address] Care Team Providers Name Role Phone NO, PCP Primary Care Physician Unavailable MK NUNEZ Attending Clinician Unavailable JAI SAMUEL Attending Clinician Unavailable SEB LEBLANC Attending Clinician Unavailable Pancho Yu RN Attending Clinician Unavailable GABRIEL BRAY Attending Clinician Unavailable Kendra Gibbons RN Attending Clinician Unavailable DAVID SANCHEZ Attending Clinician Unavailable Clarissa Montesinos Attending Clinician Unavailable ABIEL HALL NP Attending Clinician Unavailable JOSELO VARGAS M.D. Attending Clinician Unavailable BARBARA SIDHU M.D. Attending Clinician Unavailable SLICK DUNAWAY M.D. Attending Clinician Unavailable CODEY PHELPS M.D. Attending Clinician Unavailable CODEY PHELPS Attending Clinician Unavailable ZAY GRANADO M.D. Attending Clinician Unavailable ROXANA MULLER M.D. Attending Clinician Unavailable ANABEL ARIAS M.D. Attending Clinician Unavailable FRED VERA M.D. Attending Clinician Unavailable ASHLEY CORONEL M.D. Attending Clinician Unavailable MARINO CAPELLAN M.D. Attending Clinician Unavailable MED PROVIDER, TCM Attending Clinician Unavailable NATALIE CEDENO M.D. Attending Clinician Unavailable HOLTER, NON-INVASIVE Attending Clinician Unavailable JORDI WONG M.D. Attending Clinician Unavailable KARINE SCHMIDT M.D. Attending Clinician Unavailable HIRAL ROBERSON P.A. Attending Clinician Unavailable BLANCA SCHMIDT M.D. Attending Clinician Unavailable RAGHAVENDRA JHONSON M.D. Attending Clinician Unavailable ELIZABETH BALDWIN M.D. Attending Clinician Unavailable Titus Tao M.D. Attending Clinician Unavailable GABRIELLA LOMBARDO M.D. Attending Clinician Unavailable NASEEM NESBITT M.D. Attending Clinician Unavailable DAVID SANCHEZ Admitting Clinician Unavailable Physician, No Primary or Family Admitting Clinician UnavailCODEY Shaffer Admitting Clinician Unavailable Payers Payer Name Policy Type Policy Number Effective Date Expiration Date S batool [employer] [id number] 2011 2017 00:00:00 00:00:00 [facility] [id number] 2017 [facility] 00:00:00 Patient Medical Center Problems Condition Condition Condition Status Onset Resolution Last Treating Co mments Source Name Details Category Date Date Treatment Clinician Date Erythromel Erythromel Disease Active U T algia algia 05-24 Health 00:00: 00 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 05-24 Health 00:00: 00 Intellectu Intellectu Disease Active U T al al 05-24 Health disability disability 00:00: 00 Urinary Urinary Disease Active UT incontinen incontinen 05-24 He alth ce ce 00:00: 00 Asthma Asthma Disease Active UT 8-23 Health 00:00: 00 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 Jolley [...] Source Name Type Date Date Clinician NSAIDS Allergy [facility]Inf e [facility] Penicill Allergy Active 2021-[address] [facility] [address] in to 08-27 [facility] e [facility] Morphine Allergy Active 2021-[address] [facility] to 08-27 [facility] e [facility] Cefaclor Allergy Active 2021-[address] [facility] to 08-27 [facility] e [facility] Clarithr Allergy Active 2021-[address] [facility] omycin to 08-27 [facility] e [facility] Meperidi Allergy Active 2021-[address] [facility] ne to 08-27 [facility] 00:[facility] e 00 [facility] Hydromor Allergy Active 2021-[address] [facility] phone to 08-27 [facility] e [facility] morphine DA Active [facility] ITCHY 2021-0 [facility] 00:[facility]: Vanesa [facility] hydromor DA Active MO RASH 2021-0 [facility] phone 08-24 [facility] 00:00: Vanesa [facility] NSAIDS DA Active MO RASH 0 [facility] (Non-[facility]af[facility] 08-24 [facility] roidal 00:00: Vanesa Anti-Inf 00 [facility] Penicill DA Active MO RASH 2021-0 [facility] ins 08-24 [facility] 00:00: Vanesa [facility] Penicill Propensi Active 2020-0 UT ins ty to 8-25 Health adverse 00:00: reaction 00 s Cefaclor Allergy Active 2020-0 UT to 5-28 Health substanc 00:00: e 00 Hydromor Allergy Active 2020-0 UT phone to -28 Health substanc 00:00: e 00 Meperidi Allergy Active 2020-0 UT ne to 5-28 Health substanc 00:00: e 00 Metoclop Allergy Active 2020-0 UT ramide to 5-28 Health substanc 00:00: e 00 Morphine Allergy Active 2020-0 UT to 5-28 Health substanc 00:00: e 00 Nsaids Allergy Active 2020-0 UT to 5-28 Health substanc 00:00: e 00 NSAIDS DA Active [facility] Patient Anti-Inf [facility] Biaxin Allergy Active UT TABS to drug [...] TABS to drug [facility] (finding ans ) Penicill DA Active [facility] ins [facility] Reglan Allergy Active [facility] to drug [facility] (finding ans ) morphine DA Active [facility] cefaclor DA Active [facility] clarithr DA Active [facility] omycin [facility] meperidi DA Active [facility] ne [facility] hydromor DA Active [facility] phone [facility] Family History Family Member Diagnosis Comments Start Date Stop Date Source Unknown Family Family history of Family History [facility] Hypertension Grandmother Family history of [facility] rheumatoid arthritis Mother Family history of [facility] hypertension Social History Social Habit Start Date Stop Date Quantity Comments Source History [facility] Health Alcohol Comment Alcohol intake 2021-11-10 2021-11-10 Lifetime [facility] 00:00:00 00:00:00 non-drinker (finding) Exposure to 2021-10-25 2021-11-04 Not sure [facility] SARS-CoV-2 (event) 00:00:00 10:53:00 History SDOH 2021-11-04 2021-11-04 1 [facility] Alcohol Frequency 00:00:00 00:00:00 History SDOH 2021-11-04 2021-11-04 0 [facility] Alcohol Std Drinks 00:00:00 00:00:00 History SDOH 2021-11-04 2021-11-04 1 [facility] Alcohol Binge 00:00:00 00:00:00 History SDOH Food 2021-11-04 2021-11-04 1 [facility] Worry 00:00:00 00:00:00 History SDOH Food 2021-11-04 2021-11-04 1 [facility] Scarcity 00:00:00 00:00:00 Tobacco use and 2021-01-20 2021-01-20 Smokeless tobacco [facility] exposure 00:00:00 00:00:00 non-user Cigarette 2021-01-20 2021-01-20 [facility] pack-years 00:00:00 00:00:00 Sex [birth year] Female ARTEMIO Fonseca 00:00:00 00:00:00 [facility] Smoking Status Start Date Stop Date Source Never smoked tobacco [facility] Medications Ordered Filled Start Stop Current Ordering Indication Dosage Frequency Signature Comments Components Source Medication Medication Date Date Medication? Clinician (SIG) Name Name diphenhydrA Yes QD Take by UT MINE 8-12 mouth at [facility] (BENADryl) 11:24: night if 25 MG 00 needed for tablet itching. diphenhydrA Yes QD Take by UT MINE 8-12 mouth at [facility] (BENADryl) 11:24: night if 25 MG 00 needed for tablet itching. nystatin 2021- Yes [id number] Q.5D Apply UT (Mycostatin 11-04 topically He alth ) cream 00:00: 04:59 2 (two) 00 :00 times a day for 7 days. predniSONE 2021- No [id number] 40mg QD Take 2 UT (Deltasone) 11-04 9109 tablets Heal th 20 MG 00:00: 04:59 (40 mg tablet 00 :00 total) by mouth 1 (one) time each day for 5 days. diazePAM Yes [id number] TAKE 1 UT (Valium) 2 7-21 TABLET (2 Heal th MG tablet 00:00: MG TOTAL) 00 BY MOUTH 1 (ONE) TIME EACH DAY IF NEEDED FOR ANXIETY. diazePAM Yes [id number] TAKE 1 UT (Valium) 2 7-21 TABLET (2 Heal th MG tablet 00:00: MG TOTAL) 00 BY MOUTH 1 (ONE) TIME EACH DAY IF NEEDED FOR ANXIETY. lurasidone Yes [id number] 20mg QD Take 1 U T (Latuda) 20 7-21 tablet (20 He alth MG tablet 00:00: mg total) 00 by mouth 1 (one) time each day. With food. diazePAM Yes [id number] TAKE 1 UT (Valium) 2 7-21 TABLET (2 Heal th MG tablet 00:00: MG TOTAL) 00 BY MOUTH 1 (ONE) TIME EACH DAY IF NEEDED FOR ANXIETY. ARIPiprazol 2021- Yes [id number] 20mg QD Take 1 UT e (Abilify) 7-21 10-20 tablet (20 H ealth 20 MG 00:00: 04:59 mg total) tablet 00 :00 by mouth 1 (one) time each day. FLUoxetine 2021- Yes [id number] 20mg QD Take 1 UT (PROzac) 20 7-21 10-20 capsule Heal th MG capsule 00:00: 04:59 (20 mg 00 :00 total) by mouth 1 (one) time each day. ARIPiprazol 2021- Yes [id number] 20mg QD Take 1 UT e (Abilify) 7- 10-20 tablet (20 H ealth 20 MG 00:00: 04:59 mg total) tablet 00 :00 by mouth 1 (one) time each day. FLUoxetine 2021- Yes [id number] 20mg QD Take 1 UT (PROzac) 20 7-21 10-20 capsule Heal th MG capsule 00:00: 04:59 (20 mg 00 :00 total) by mouth 1 (one) time each day. ARIPiprazol 2021- Yes [id number] 20mg QD Take 1 UT e (Abilify) - 10-20 tablet (20 H ealth 20 MG 00:00: 04:59 mg total) tablet 00 :00 by mouth 1 (one) time each day. FLUoxetine 2021- Yes [id number] 20mg QD Take 1 UT (PROzac) 20 7-21 10-20 capsule Heal th MG capsule 00:00: 04:59 (20 mg 00 :00 total) by mouth 1 (one) time each day. ARIPiprazol 2021- Yes [id number] 5mg QD Take 1 UT e (Abilify) 7- 08-21 tablet (5 He alth 5 MG tablet 00:00: 04:59 mg total) 00 :00 by mouth 1 (one) time each day. (Take with Aripiprazo le 20 mg to total aripripraz ole 25 mg daily). lurasidone 2021- Yes [id number] 20mg QD Take 1 UT (Latuda) 20 7-21 08-21 tablet (20 H ealth MG tablet 00:00: 04:59 mg total) 00 :00 by mouth 1 (one) time each day. With food. ARIPiprazol 2021- Yes [id number] 5mg QD Take 1 UT e (Abilify) -13 11-21 tablet (5 He alth 5 MG tablet 00:00: 04:59 mg total) 00 :00 by mouth 1 (one) time each day. (Take with Aripiprazo le 20 mg to total aripripraz ole 25 mg daily). lurasidone 2021- Yes [id number] 20mg QD Take 1 UT (Latuda) 20 7-13 11-21 tablet (20 H ealth MG tablet 00:00: 04:59 mg total) 00 :00 by mouth 1 (one) time each day. With food. Ivabradine 2021- No [id number] Take 2.5 UT HCl 6-15 08-13 mg by [facility] ([facility]) 00:00: 04:59 mouth 2 5 MG tablet 00 :00 (two) times a day for 14 days, THEN 5 mg 2 (two) times a day for 14 days, THEN 7.5 mg 2 (two) times a day. Ivabradine 2021- No [id number] Take 2.5 UT HCl 6-15 08-13 mg by [facility] ([facility]) 00:00: 04:59 mouth 2 5 MG tablet 00 :00 (two) times a day for 14 days, THEN 5 mg 2 (two) times a day for 14 days, THEN 7.5 mg 2 (two) times a day. albuterol Yes [id number] 2.5mg Q6H Take 3 mL UT (2.5 6-14 (2.5 mg Health MG/3ML) 00:00: total) by 0.083% 00 nebulizati nebulizer on every 6 solution (six) hours if needed for wheezing or shortness of breath. ipratropium Yes [id number] .5mg Take 2.5 UT (Atrovent) 6-14 mL (0.5 mg Hea lth 0.02 % 00:00: total) by nebulizer 00 nebulizati solution on 4 (four) times a day if needed for wheezing or shortness of breath. albuterol 2022-0 Yes [id number] 2.5mg Q6H Take 3 mL UT (2.5 6-14 (2.5 mg Health MG/3ML) 00:00: total) by 0.083% 00 nebulizati nebulizer on every 6 solution (six) hours if needed for wheezing or shortness of breath. ipratropium 2022-0 Yes [id number] .5mg Take 2.5 UT (Atrovent) 6-14 mL (0.5 mg Hea lth 0.02 % 00:00: total) by nebulizer 00 nebulizati solution on 4 (four) times a day if needed for wheezing or shortness of breath. albuterol 2-0 Yes [id number] 2.5mg Q6H Take 3 mL UT (2.5 6-14 (2.5 mg Health MG/3ML) 00:00: total) by 0.083% 00 nebulizati nebulizer on every 6 solution (six) hours if needed for wheezing or shortness of breath. ipratropium 2022-0 Yes [id number] .5mg Take 2.5 UT (Atrovent) 6-14 mL (0.5 mg Hea lth 0.02 % 00:00: total) by nebulizer 00 nebulizati solution on 4 (four) times a day if needed for wheezing or shortness of breath. albuterol 2-0 Yes [id number] 2.5mg Q6H Take 3 mL UT (2.5 6-14 (2.5 mg Health MG/3ML) 00:00: total) by 0.083% 00 nebulizati nebulizer on every 6 solution (six) hours if needed for wheezing or shortness of breath. ipratropium 2022-0 Yes [id number] .5mg Take 2.5 UT (Atrovent) 6-14 mL (0.5 mg Hea lth 0.02 % 00:00: total) by nebulizer 00 nebulizati solution on 4 (four) times a day if needed for wheezing or shortness of breath. Ivabradine 2022-0 2022- No [id number] Take 2.5 UT HCl 09-01 08-07 mg by [facility] ([facility]) 00:00: 04:59 mouth 2 5 MG tablet 00 :00 (two) times a day for 14 days, THEN 5 mg 2 (two) times a day for 14 days, THEN 7.5 mg 2 (two) times a day. Acetaminoph Acetaminoph Yes [address] [facility] en en 6-08 Hours as [facility] 10:26: needed for Patient 00 Mild Pain Medical (1-3) Or Center Fever>100. 8 Albuterol Albuterol Yes 0 Rt Q4h as [facility] Sulfate Sulfate 6-08 needed for Nik[facility] es (Ventolin (Ventolin 10:26: Shortness Patient Hfa) 90 Mcg Hfa) 90 Mcg 00 [facility] HFA.AER.AD HFA.AER.AD Jennifer ter Albuterol/I Albuterol/I Yes 3 Rt Q4h as [facility] pratropium pratropium 6-08 needed for [facility] Nebulize Nebulize 10:26: Shortness Patient 00 [facility] Ascorbic Ascorbic Yes [address] [facility] Acid Acid 6-08 Day [facility] 10:26: Patient 00 [facility] Azithromyci Azithromyci Yes [address] n (Z-Jordan) n (Z-Jordan) 6-08 [facility] 250 Mg 250 Mg 10:26: Patient TABLET TABLET 00 [facility] [place] Cholecalcif Cholecalcif Yes [address] nick nick 6-08 [facility] 10:26: Patient 00 [facility] [place] Docusate Docusate Yes [address] Sodium Sodium 6-08 Times A [facility] 10:26: Day Patient 00 [facility] [place] Guaifenesin Guaifenesin Yes [address] [facility] (Mucinex) (Mucinex) 6-08 Day [facility] 600 Mg 600 Mg 10:26: Patient TABLET.ER TABLET.ER 00 [facility] Nirmatrelvi Nirmatrelvi Yes [address] [facility] r/Ritonavir r/Ritonavir 6-08 Hours [facility] (Paxlovid (Paxlovid 10:26: Pat ient Co-Pack Co-Pack 00 Medical (Eua)) 150 (Eua)) [address] Mg X 2-100 Mg X 2-100 Mg TABLET Mg TABLET Pantoprazol Pantoprazol Yes [address] e Sod e Sod 6-08 [facility] (Protonix) (Protonix) 10:26: P atient 40 Mg SUSP 40 Mg SUSP 00 [facility] Zinc Zinc Yes [address] Sulfate Sulfate 6-08 [facility] 10:26: Patient 00 Medical Center Paxlovid Yes 3{tbl} Q12H Take 3 UT 6-08 tablets by Health 00:00: mouth 00 every 12 (twelve) hours. pantoprazol Yes 40mg QD Take 40 mg UT e 6-08 by mouth 1 Health (ProtoNix) 00:00: (one) time 40 MG EC 00 each day. tablet Zinc Yes 1{tbl} QD Take 1 UT Sulfate 220 6-08 tablet by [facility] lth (50 Zn) MG 00:00: mouth 1 tablet 00 (one) time each day. benzonatate Yes TAKE ONE UT (Tessalon) 6-02 (1) Health 200 MG 00:00: CAPSULE(S) capsule 00 BY MOUTH EVERY EIGHT HOURS NEEDED FOR COUGH. diazePAM Yes [id number] TAKE 1 UT (Valium) 2 5-23 TABLET (2 Heal th MG tablet 00:00: MG TOTAL) 00 BY MOUTH 1 (ONE) TIME EACH DAY IF NEEDED FOR ANXIETY. diazePAM Yes [id number] TAKE 1 UT (Valium) 2 5-23 TABLET (2 Heal th MG tablet 00:00: MG TOTAL) 00 BY MOUTH 1 (ONE) TIME EACH DAY IF NEEDED FOR ANXIETY. Ivabradine 0 Yes [id number] 1{tbl} Q.5D Take 1 UT HCl 5-11 tablet by [facility] ([facility]) 00:00: mouth 2 7.5 MG 00 (two) tablet times a day. Ivabradine 0 Yes [id number] 1{tbl} Q.5D Take 1 UT HCl 5-11 tablet by [facility] ([facility]) 00:00: mouth 2 7.5 MG 00 (two) tablet times a day. Ivabradine 2021-0 Yes [id number] 1{tbl} Q.5D Take 1 UT HCl 5-11 tablet by Health (Corlanor) 00:00: mouth 2 7.5 MG 00 (two) tablet times a day. Ivabradine 2021-0 Yes [id number] 1{tbl} Q.5D Take 1 UT HCl 5-11 tablet by [facility] ([facility]) 00:00: mouth 2 7.5 MG 00 (two) tablet times a day. Ivabradine 2021-0 Yes [id number] 1{tbl} Q.5D Take 1 UT HCl 5-11 tablet by Health ([facility]lan[facility]) 00:00: mouth 2 7.5 MG 00 (two) tablet times a day. clopidogrel 2022- No [id number] 75mg QD Take 1 UT (Plavix) 75 5-11 05-12 tablet (75 H ealth MG tablet 00:00: 04:59 mg total) 00 :00 by mouth 1 (one) time each day. TK 1 T PO D clopidogrel 2021-2022- No [id number] 75mg QD Take 1 UT (Plavix) 75 5-11 05-12 tablet (75 H ealth MG tablet 00:00: 04:59 mg total) 00 :00 by mouth 1 (one) time each day. TK 1 T PO D clopidogrel 2021-2022- No [id number] 75mg QD Take 1 UT (Plavix) 75 5-11 05-12 tablet (75 H ealth MG tablet 00:00: 04:59 mg total) 00 :00 by mouth 1 (one) time each day. TK 1 T PO D clopidogrel 2021-2022- No [id number] 75mg QD Take 1 UT (Plavix) 75 5-11 05-12 tablet (75 H ealth MG tablet 00:00: 04:59 mg total) 00 :00 by mouth 1 (one) time each day. TK 1 T PO D clopidogrel 2021-2022- No [id number] 75mg QD Take 1 UT (Plavix) 75 5-11 05-12 tablet (75 H ealth MG tablet 00:00: 04:59 mg total) 00 :00 by mouth 1 (one) time each day. TK 1 T PO D ARIPiprazol No [id number] 5mg QD Take 1 UT e (Abilify) 07-21 tablet (5 He alth 5 MG tablet 00:00: 04:59 mg total) 00 :00 by mouth 1 (one) time each day. (Take with Aripiprazo le 20 mg to total aripripraz ole 25 mg daily). ARIPiprazol 2021- No [id number] 5mg QD Take 1 UT e (Abilify) 07-21 tablet (5 He alth 5 MG tablet 00:00: 04:59 mg total) 00 :00 by mouth 1 (one) time each day. Take with aripiprazo le 20 mg to total 25 mg daily. FLUoxetine 2021- No [id number] 20mg QD Take 1 UT (PROzac) 20 07-21 capsule Heal th MG capsule 00:00: 04:59 (20 mg 00 :00 total) by mouth 1 (one) time each day. ARIPiprazol 2021- No [id number] 5mg QD Take 1 UT e (Abilify) 07-21 tablet (5 He alth 5 MG tablet 00:00: 04:59 mg total) 00 :00 by mouth 1 (one) time each day. (Take with Aripiprazo le 20 mg to total aripripraz ole 25 mg daily). ARIPiprazol 2021-2021- No [id number] 5mg QD Take 1 UT e (Abilify) 07-21 tablet (5 He alth 5 MG tablet 00:00: 04:59 mg total) 00 :00 by mouth 1 (one) time each day. Take with aripiprazo le 20 mg to total 25 mg daily. FLUoxetine 2021-2021- No [id number] 20mg QD Take 1 UT (PROzac) 20 07-21 capsule Heal th MG capsule 00:00: 04:59 (20 mg 00 :00 total) by mouth 1 (one) time each day. ARIPiprazol 2021- No [id number] 20mg QD Take 1 UT e (Abilify) 07-20- tablet (20 H ealth 20 MG 00:00: 04:59 mg total) tablet 00 :00 by mouth 1 (one) time each day. ARIPiprazol 2021- No [id number] 20mg QD Take 1 UT e (Abilify) 4-27 07-27 tablet (20 H ealth 20 MG 00:00: 04:59 mg total) tablet 00 :00 by mouth 1 (one) time each day. diphenhydrA Yes QD Take by UT MINE 3-01 mouth at Health (BENADryl) 09:43: night if 25 MG 28 needed for tablet itching. diphenhydrA Yes QD Take by UT MINE 3-01 mouth at Health (BENADryl) 09:43: night if 25 MG 28 needed for tablet itching. diphenhydrA Yes QD Take by UT MINE 3-01 mouth at Health (BENADryl) 09:43: night if 25 MG 28 needed for tablet itching. albuterol Yes [id number] 2.5mg Take 3 mL UT (2.5 8-23 (2.5 mg Health MG/3ML) 00:00: total) by 0.083% 00 nebulizati nebulizer on every 4 solution (four) hours if needed for wheezing or shortness of breath. albuterol 2021- No [id number] 2.5mg Take 3 mL UT (2.5 8-23 06-14 (2.5 mg Health MG/3ML) 00:00: 00:00 total) by 0.083% 00 :00 nebulizati nebulizer on every 4 solution (four) [...] before a protein-co ntaining meal Fluticasone Fluticasone 2019-0 Yes BARBARA QD USE 2 UT Propionate [...] UT iamcinolone iamcinolone 0-08 CAPELLAN SPARINGLY [facility] [id number] 00:00: M.D. TO a ns UNIT/GM-% UNIT/GM-% 00 AFFECTED External External AREA(S) Cream Cream TWICE DAILY FLUoxetine FLUoxetine 2014-03 Yes SHAOJIE TAKE 1 UT HCl - 20 MG HCl - 20 MG 1-10 VARGAS M.D. CAPSULE BY [facility] Oral Oral 00:00: MOUTH ans Capsule Capsule 00 DAILY Abilify 10 Abilify 10 2014-03 Yes SHAOJIE TAKE 1/2 UT MG Oral MG Oral [...] 00:00: M.D. DAILY. ans Tablet Tablet 00 Aripiprazol Aripiprazol Yes [address] [facility] e (Abilify) e (Abilify) Lunch [facility] 5 Mg TABLET 5 Mg TABLET P [facility]ient [facility] Aripiprazol Aripiprazol Yes [address] e e [facility] (Abilify*) (Abilify*) Pat ient 20 Mg 20 Mg Medical TABLET TABLET Center Clopidogrel Clopidogrel Yes [address] Bisulfate Bisulfate [facility] (Plavix) 75 (Plavix) 75 P atient Mg TABLET Mg TABLET Medic al Center Fluoxetine Fluoxetine Yes [address] [facility] Ivabradine Ivabradine Yes 7.[address] [facility] Hcl Hcl Day [facility] ([facility]) ([facility]) Pat ient 7.5 Mg 7.5 Mg Medical TABLET TABLET Center Plavix TABS Plavix TABS Yes U T [...] Time Observation Value Comments Source Systolic blood 2021-11-04 104 mm[Hg] [facility] pressure 16:25:00 Diastolic blood 2021-11-04 71 mm[Hg] [facility] pressure 16:25:00 Heart rate 2021-11-04 64 /min [facility] 16:25:00 Body temperature 2021-11-04 36.33 Ying [facility] 16:25:00 Respiratory rate 2021-11-04 16 /min [facility] 16:25:00 Body height 2021-11-04 172.7 cm [facility] 16:25:00 Body weight 2021-11-04 94.972 kg [facility] 16:25:00 BMI 2021-11-04 31.84 kg/m2 [facility] 16:25:00 Oxygen saturation 2021-08-31 98 /min [facility] by Pulse oximetry 13:10:00 Patient [facility] BP Diastolic 2021-08-31 84 mm[Hg] [facility] 13:10:00 Patient [facility] Oxygen saturation 2021-08-31 97 /min [facility] by Pulse oximetry 10:40:00 Patient [facility] BP Diastolic 2021-08-31 70 mm[Hg] [facility] 10:40:00 Patient [facility] Oxygen saturation 2021-08-31 97 /min [facility] by Pulse oximetry 10:02:00 Patient [facility] BP Diastolic 2021-08-31 70 mm[Hg] [facility] 10:02:00 Patient [facility] Oxygen saturation 2021-08-31 96 /min [facility] by Pulse oximetry 08:05:00 Patient [facility] Oxygen saturation 2021-08-31 96 /min [facility] by Pulse oximetry 07:50:00 Patient [facility] Oxygen saturation 2021-08-31 96 /min [facility] by Pulse oximetry 05:35:00 Patient [facility] BP Diastolic 2021-08-31 74 mm[Hg] [facility] 05:35:00 Patient [facility] Oxygen saturation 2021-08-31 99 /min [facility] by Pulse oximetry 02:20:00 Patient [facility] Oxygen saturation 2021-08-31 97 /min [facility] by Pulse oximetry 02:05:00 Patient [facility] Oxygen saturation 2021-08-31 95 /min [facility] by Pulse oximetry 01:00:00 Patient [facility] BP Diastolic 2021-08-31 70 mm[Hg] [facility] 01:00:00 Patient [facility] Oxygen saturation 2021-08-30 98 /min [facility] by Pulse oximetry 22:00:00 Patient [facility] BP Diastolic 2021-08-30 72 mm[Hg] [facility] 22:[facility] Oxygen saturation 2021-08-30 98 /min [facility] by Pulse oximetry 21:00:00 Patient [facility] BP Diastolic 2021-08-30 72 mm[Hg] [facility] 21:00:00 Patient [facility] Oxygen saturation 2021-08-30 99 /min [facility] by Pulse oximetry 20:25:00 Patient [facility] Oxygen saturation 2021-08-30 97 /min [facility] by Pulse oximetry 20:10:00 Patient [facility] Oxygen saturation 2021-08-30 99 /min [facility] by Pulse oximetry 17:15:00 Patient [facility] BP Diastolic 2021-08-30 64 mm[Hg] [facility] 17:15:00 Patient [facility] Oxygen saturation 2021-08-30 100 /min [facility] by Pulse oximetry 14:47:00 Patient [facility] Oxygen saturation 2021-08-30 96 /min [facility] by Pulse oximetry 14:32:00 Patient [facility] Oxygen saturation 2021-08-30 95 /min [facility] by Pulse oximetry 12:56:00 Patient [facility] BP Diastolic 2021-08-30 66 mm[Hg] [facility] 12:56:00 Patient [facility] Oxygen saturation 2021-08-30 97 /min [facility] by Pulse oximetry 09:50:00 Patient [facility] BP Diastolic 2021-08-30 76 mm[Hg] [facility] 09:50:00 Patient [facility] Oxygen saturation 2021-08-30 97 /min [facility] P[facility]ximetry 09:07:00 Patient [facility] BP Diastolic 2021-08-30 76 mm[Hg] [facility] 09:07:00 Patient [facility] Oxygen saturation 2021-08-30 100 /min [facility] Pulse oximetry 08:26:00 Patient [facility] Oxygen saturation 2021-08-30 96 /min [facility] Pulse oximetry 08:11:00 Patient [facility] Oxygen saturation 2021-08-30 97 /min [facility] Pulse oximetry 05:00:00 Patient [facility] BP Diastolic 2021-08-30 61 mm[Hg] [facility] 05:00:00 Patient [facility] Oxygen saturation 2021-08-30 98 /min [facility] Pulse oximetry 01:43:00 Patient [facility] Oxygen saturation 2021-08-30 95 /min [facility] Pulse oximetry 01:35:00 Patient [facility] Oxygen saturation 2021-08-30 94 /min [facility] Pulse oximetry 01:00:00 Patient [facility] BP Diastolic 2021-08-30 84 mm[Hg] [facility] 01:00:00 Patient [facility] Oxygen saturation 2021-08-29 97 /min [facility] Pulse oximetry 22:00:00 Patient [facility] BP Diastolic 2021-08-29 84 mm[Hg] [facility] 22:00:00 Patient [facility] Oxygen saturation 2021-08-29 97 /min [facility] Pulse oximetry 21:00:00 Patient [facility] BP Diastolic 2021-08-29 84 mm[Hg] [facility] 21:00:00 Patient [facility] Oxygen saturation 2021-08-29 99 /min [facility] Pulse oximetry 20:48:00 Patient [facility] Oxygen saturation 2021-08-29 97 /min [facility] Pulse oximetry 20:40:00 Patient [facility] Oxygen saturation 2021-08-29 100 /min [facility] Pulse oximetry 18:26:00 Patient [facility] BP Diastolic 2021-08-29 77 mm[Hg] [facility] 18:26:00 Patient [facility] Oxygen saturation 2021-08-29 99 /min [facility] Pulse oximetry 13:47:00 Patient [facility] Oxygen saturation 2021-08-29 94 /min [facility] by Pulse oximetry 13:37:00 Patient [facility] Oxygen saturation 2021-08-29 100 /min [facility] by Pulse oximetry 13:31:00 Patient [facility] BP Diastolic 2021-08-29 76 mm[Hg] [facility] 13:31:00 Patient [facility] Oxygen saturation 2021-08-29 100 /min [facility] Pulse oximetry 09:25:00 Patient [facility] BP Diastolic 2021-08-29 87 mm[Hg] [facility] 09:25:00 Patient [facility] Oxygen saturation 2021-08-29 100 /min [facility] Pulse oximetry 09:04:00 Patient [facility] BP Diastolic 2021-08-29 87 mm[Hg] [facility] 09[facility]04:00 Patient [facility] Oxygen saturation 2021-08-29 99 /min [facility] Pulse oximetry 07:25:00 Patient [facility] Oxygen saturation 2021-08-29 97 /min [facility] by Pulse oximetry 07:15:00 Patient [facility] Oxygen saturation 2021-08-29 93 /min [facility] Pulse oximetry 05:00:00 Patient [facility] BP Diastolic 2021-08-29 77 mm[Hg] [facility] 05:00:00 Patient [facility] Oxygen saturation 2021-08-29 98 /min [facility] by Pulse oximetry 01:50:00 Patient [facility] Oxygen saturation 2021-08-29 95 /min [facility] Pulse oximetry 01:35:00 Patient [facility] Oxygen saturation 2021-08-29 95 /min [facility] Pulse oximetry 01:00:00 Patient [facility] BP Diastolic 2021-08-29 74 mm[Hg] [facility] 01[facility]00:00 Patient [facility] Oxygen saturation 2021-08-28 95 /min [facility] by Pulse oximetry 23:14:00 Patient [facility] BP Diastolic 2021-08-28 72 mm[Hg] [facility] 23:14:00 Patient [facility] Oxygen saturation 2021-08-28 95 /min [facility] Pulse oximetry 21:00:00 Patient [facility] BP Diastolic 2021-08-28 72 mm[Hg] [facility] 21:00:00 Patient [facility] Oxygen saturation 2021-08-28 96 /min [facility] Pulse oximetry 20:22:00 Patient [facility] Oxygen saturation 2021-08-28 98 /min [facility] Pulse oximetry 18:05:00 Patient [facility] Oxygen saturation 2021-08-28 97 /min [facility] Pulse oximetry 18:04:00 Patient [facility] Oxygen saturation 2021-08-28 98 /min [facility] Pulse oximetry 17:55:00 Patient [facility] Oxygen saturation 2021-08-28 94 /min [facility] Pulse oximetry 17:14:00 Patient [facility] BP Diastolic 2021-08-28 78 mm[Hg] [facility] 17:14:00 Patient [facility] Oxygen saturation 2021-08-28 97 /min [facility] Pulse oximetry 13:26:00 Patient [facility] BP Diastolic 2021-08-28 74 mm[Hg] [facility] 13:26:00 Patient [facility] Oxygen saturation 2021-08-28 99 /min [facility] Pulse oximetry 10:15:00 Patient [facility] BP Diastolic 2021-08-28 72 mm[Hg] [facility] 10:15:00 Patient [facility] Oxygen saturation 2021-08-28 99 /min [facility] Pulse oximetry 09:22:00 Patient [facility] BP Diastolic 2021-08-28 72 mm[Hg] [facility] 09:22:00 Patient [facility] Oxygen saturation 2021-08-28 96 /min [facility] Pulse oximetry 08:09:00 Patient [facility] Oxygen saturation 2021-08-28 97 /min [facility] Pulse oximetry 08:07:00 Patient [facility] Oxygen saturation 2021-08-28 97 /min [facility] Pulse oximetry 08:00:00 Patient [facility] Oxygen saturation 2021-08-28 93 /min [facility] Pulse oximetry 05:00:00 Patient [facility] BP Diastolic 2021-08-28 69 mm[Hg] [facility] 05:00:00 Patient [facility] Oxygen saturation 2021-08-28 99 /min [facility] Pulse oximetry 01:09:00 Patient [facility] Oxygen saturation 2021-08-28 96 /min [facility] Pulse oximetry 01:00:00 Patient [facility] BP Diastolic 2021-08-28 76 mm[Hg] [facility] 01:00:00 Patient [facility] Oxygen saturation 2021-08-28 96 /min [facility] Pulse oximetry 00:00:00 Patient [facility] BP Diastolic 2021-08-28 67 mm[Hg] [facility] Oxygen saturation 2021-08-27 96 /min [facility] Pulse oximetry 21:00:00 Patient [facility] BP Diastolic 2021-08-27 67 mm[Hg] [facility] 21:00:00 Patient [facility] Oxygen saturation 2021-08-27 98 /min [facility] Pulse oximetry 20:28:00 Patient [facility] Oxygen saturation 2021-08-27 95 /min [facility] Pulse oximetry 20:20:00 Patient [facility] Height 2021-08-[address] [facility] 19:16:00 Patient [facility] Weight 2021-08-[address] [facility] 19:16:00 Patient [facility] BMI (Body Mass 2021-08-27 32.1 kg/m2 [facility] Index) 19:16:00 Patient [facility] Oxygen saturation 2021-08-27 97 /min [facility] Pulse oximetry 16:56:00 Patient [facility] BP Diastolic 2021-08-27 81 mm[Hg] [facility] 16:56:00 Patient [facility] Oxygen saturation 2021-08-27 96 /min [facility] Pulse oximetry 15:36:00 Patient [facility] BP Diastolic 2021-08-27 78 mm[Hg] [facility] 15:36:00 Patient [facility] Oxygen saturation 2021-08-27 96 /min [facility] Pulse oximetry 15:33:00 Patient [facility] BP Diastolic 2021-08-27 78 mm[Hg] [facility] 15:33:00 Patient [facility] Oxygen saturation 2021-08-27 96 /min [facility] Pulse oximetry 14:37:00 Patient [facility] BP Diastolic 2021-08-27 78 mm[Hg] [facility] 14:37:00 Patient [facility] Oxygen saturation 2021-08-27 98 /min [facility] Pulse oximetry 12:50:00 Patient [facility] Oxygen saturation 2021-08-27 97 /min [facility] Pulse oximetry 12:49:00 [facility] 2021-08-27 97 /min [facility] Pulse oximetry 12:40:00 [facility] Oxygen saturation 2021-08-27 98 /min [facility] Pulse oximetry 09:00:00 [facility] BP Diastolic 2021-08-27 80 mm[Hg] [facility] 09:00:00 [facility] Systolic blood 2019-08-04 100 mm[Hg] [facility] pressure 11:18:00 Position: Sitting Diastolic blood 2019-08-04 62 mm[Hg] [facility] 11:18:00 Position: Sitting Body height 2019-08-04 68 [in_us] [facility] 11:18:00 Weight 2019-08-04 201.5 [lb_av] [facility] 11:18:00 Body mass index 2019-08-04 30.64 kg/m2 [facility] (BMI) [Ratio] 11:18:00 Body temperature 2019-08-04 97 [degF] Method: Oral [facility] 11:18:00 Heart Rate 2019-08-04 77 /min [facility] 11:18:00 Systolic blood 2019-07-23 101 mm[Hg] [facility] 10:43:00 Position: Sitting Diastolic blood 2019-07-23 66 mm[Hg] [facility] 10:43:00 Position: Sitting Body height 2019-07-23 68 [in_us] [facility] 10:43:00 Weight 2019-07-23 190 [lb_av] [facility] 10:43:00 Body mass index 2019-07-23 28.89 kg/m2 [facility] (BMI) [Ratio] 10:43:00 Heart Rate 2019-07-23 69 /min [facility] 10:43:00 Body temperature 2019-07-23 97.1 [degF] [facility] 10:43:00 Systolic blood 2019-05-02 112 mm[Hg] [facility] 15:13:00 Position: Sitting Diastolic blood 2019-05-02 76 mm[Hg] [facility] 15:13:00 Position: Sitting Body height 2019-05-02 68 [in_us] [facility] 15:13:00 Weight 2019-05-02 190 [lb_av] [facility] 15:13:00 Body mass index 2019-05-02 28.89 kg/m2 [facility] (BMI) [Ratio] 15:13:00 Heart Rate 2019-05-02 79 /min [facility] 15:13:00 BP Systolic 2019-04-15 122 mm[Hg] [facility]: L[facility]; [facility] 16:33:00 Position: Sitting BP Diastolic 2019-04-15 78 mm[Hg] [facility]: L[facility]; [facility] 16:33:00 Position: Sitting Height 2019-04-15 68 [in_us] [facility] 16:33:00 Weight 2019-04-15 209 [lb_av] [facility] 16:33:00 Body Mass Index 2019-04-15 31.78 kg/m2 [facility] Calculated 16:33:00 BP Systolic 2018-12-31 113 mm[Hg] [facility] 16:04:00 Position: Sitting BP Diastolic 2018-12-31 79 mm[Hg] [facility] 16:04:00 Position: Sitting Height 2018-12-31 68 [in_us] [facility] 16:04:00 Weight 2018-12-31 204 [lb_av] [facility] 16:04:00 Body Mass Index 2018-12-31 31.02 kg/m2 [facility] Calculated 16:04:00 Temperature 2018-12-31 97.9 [degF] Method: Oral [facility] 16:04:00 Heart Rate 2018-12-31 79 /min [facility] 16:04:00 BP Systolic 2018-12-20 136 mm[Hg] [facility] 11:28:00 Position: Sitting BP Diastolic 2018-12-20 82 mm[Hg] [facility] 11:28:00 Position: Sitting Height 2018-12-20 68 [in_us] [facility] 11:28:00 Weight 2018-12-20 208.125 [lb_av] [facility] 11:28:00 Body Mass Index 2018-12-20 31.65 kg/m2 [facility] Calculated 11:28:00 Temperature 2018-12-20 97.5 [degF] Method: Oral [facility] 11:28:00 Heart Rate 2018-12-20 72 /min Location: L [facility] 11:28:00 Brachial Artery; Respiration Rate 2018-12-20 16 /min Quality: Normal [facility] 11:28:00 BP Systolic 2018-11-27 104 mm[Hg] [facility]: [facility]; [facility] 10:59:00 Position: Sitting BP Diastolic 2018-11-27 67 mm[Hg] [facility]: [facility]; [facility] 10:59:00 Position: Sitting Height 2018-11-27 68 [in_us] [facility] 10:59:00 Weight 2018-11-27 204 [lb_av] [facility] 10:59:00 Body Mass Index 2018-11-27 31.02 kg/m2 [facility] Calculated 10:59:00 Temperature 2018-11-27 98.2 [degF] Method: Oral [facility] 10:59:00 Heart Rate 2018-11-27 76 /min Location: R [facility] 10:59:00 Brachial Artery; Respiration Rate 2018-11-27 18 /min Quality: Normal [facility] 10:59:00 O2 SAT 2018-11-27 99 % Source: RA [facility] 10:59:00 BP Systolic 2018-11-26 105 mm[Hg] [facility]: [facility]; [facility] 11:27:00 Position: Supine BP Diastolic 2018-11-26 74 mm[Hg] [facility]: [facility]; [facility] 11:27:00 Position: Supine Heart Rate 2018-11-26 75 /min Location: R [facility] 11:27:00 Brachial Artery; Quality: Normal BP Systolic 2018-11-26 115 mm[Hg] [facility]: [facility]; [facility] 11:25:00 Position: Standing BP Diastolic 2018-11-26 78 mm[Hg] [facility]: [facility]; [facility] 11:25:00 Position: Standing Heart Rate 2018-11-26 123 /min Location: L [facility] 11:25:00 Brachial Artery; Quality: Normal BP Systolic 2018-11-26 91 mm[Hg] [facility]: [facility]; [facility] 11:19:00 Position: Sitting BP Diastolic 2018-11-26 70 mm[Hg] [facility]: [facility]; [facility] 11:19:00 Position: Sitting Heart Rate 2018-11-26 84 /min Location: R [facility] 11:19:00 Brachial Artery; Quality: Normal Heart Rate 2018-11-26 84 /min Location: R [facility] 11:18:00 Brachial Artery; Quality: Normal BP Systolic 2018-11-26 106 mm[Hg] Location: [facility]; [facility] 10:57:00 Position: Sitting BP Diastolic 2018-11-26 72 mm[Hg] [facility]: [facility]; [facility] 10:57:00 Position: Sitting Height 2018-11-26 68 [in_us] [facility] 10:57:00 Weight 2018-11-26 204 [lb_av] [facility] 10:57:00 Body Mass Index 2018-11-26 31.02 kg/m2 [facility] Calculated 10:57:00 Temperature 2018-11-26 98.7 [degF] Method: Oral [facility] 10:57:00 Heart Rate 2018-11-26 78 /min Location: R [facility] 10:57:00 Radial; Quality: Normal Respiration Rate 2018-11-26 16 /min Quality: Normal [facility] 10:57:00 BP Systolic 2018-04-23 107 mm[Hg] [facility]: [facility]; [facility] 12:50:00 Position: Sitting BP Diastolic 2018-04-23 73 mm[Hg] Location: L[facility]; [facility] 12:50:00 Position: Sitting Weight 2018-04-23 208.25 [lb_av] [facility] 12:50:00 Body Mass Index 2018-04-23 31.66 kg/m2 [facility] Calculated 12:50:00 Temperature 2018-04-23 97.7 [degF] Method: Oral [facility] 12:50:00 Heart Rate 2018-04-23 65 /min Location: L [facility] 12:50:00 Brachial Artery; Quality: Normal Respiration Rate 2018-04-23 18 /min Quality: Normal [facility] 12:50:00 O2 SAT 2018-04-23 99 % Source: RA [facility] 12:50:00 BP Systolic 2017-11-30 115 mm[Hg] Location: [facility]; [facility] 13:16:00 Position: Sitting BP Diastolic 2017-11-30 78 mm[Hg] [facility]: [facility]; [facility] 13:16:00 Position: Sitting Height 2017-11-30 68 [in_us] [facility] 13:16:00 Weight 2017-11-30 203 [lb_av] [facility] 13:16:00 Body Mass Index 2017-11-30 30.87 kg/m2 [facility] Calculated 13:16:00 Temperature 2017-11-30 98.2 [degF] Method: Oral [facility] 13:16:00 Heart Rate 2017-11-30 96 /min Location: L [facility] 13:16:00 Radial; Quality: Normal Respiration Rate 2017-11-30 16 /min Quality: Normal [facility] 13:16:00 BP Systolic 2017-08-30 113 mm[Hg] [facility]: [facility]; [facility] 10:00:00 Position: Sitting BP Diastolic 2017-08-30 78 mm[Hg] Location: [facility]; [facility] 10:00:00 Position: Sitting Height 2017-08-30 68 [in_us] [facility] 10:00:00 Weight 2017-08-30 205 [lb_av] [facility] 10:00:00 Body Mass Index 2017-08-30 31.17 kg/m2 [facility] Calculated 10:00:00 Temperature 2017-08-30 98.3 [degF] Method: Oral [facility] 10:00:00 Heart Rate 2017-08-30 78 /min [facility] 10:00:00 BP Systolic 2017-08-06 95 mm[Hg] Location: L[facility]; [facility] 13:24:00 Position: Sitting BP Diastolic 2017-08-06 63 mm[Hg] Location: L[facility]; [facility] 13:24:00 Position: Sitting Height 2017-08-06 68 [in_us] [facility] 13:24:00 Body Mass Index 2017-08-06 31.52 kg/m2 [facility] Calculated 13:24:00 Weight 2017-08-06 207.3125 [lb_av] [facility] 13:24:00 Temperature 2017-08-06 98 [degF] Method: [facility] 13:24:00 Temporal Heart Rate 2017-08-06 81 /min [facility] 13:24:00 Respiration Rate 2017-08-06 16 /min Quality: Normal [facility] 13:24:00 BP Systolic 2017-08-06 107 mm[Hg] Location: R[facility]; [facility] 10:29:00 Position: Sitting BP Diastolic 2017-08-06 74 mm[Hg] Location: R[facility]; [facility] 10:29:00 Position: Sitting Height 2017-08-06 68 [in_us] [facility] 10:29:00 Body Mass Index 2017-08-06 31.47 kg/m2 [facility] Calculated 10:29:00 Weight 2017-08-06 207 [lb_av] [facility] 10:29:00 Heart Rate 2017-08-06 69 /min Location: R [facility] 10:29:00 Radial; Respiration Rate 2017-08-06 16 /min Quality: Normal [facility] 10:29:00 O2 SAT 2017-08-06 99 % Source: RA [facility] 10:29:00 BP Systolic 2017-07-27 110 mm[Hg] Location: R[facility]; [facility] 10:36:00 Position: Sitting BP Diastolic 2017-07-27 78 mm[Hg] Location: [facility]; [facility] 10:36:00 Position: Sitting Height 2017-07-27 68 [in_us] [facility] 10:36:00 Body Mass Index 2017-07-27 31.54 kg/m2 [facility] Calculated 10:36:00 Weight 2017-07-27 207.4375 [lb_av] [facility] 10:36:00 Temperature 2017-07-27 98.5 [degF] Method: Oral [facility] 10:36:00 Heart Rate 2017-07-27 69 /min Location: R [facility] 10:36:00 Brachial Artery; Quality: Normal Respiration Rate 2017-07-27 16 /min Quality: Normal [facility] 10:36:00 Procedures Procedure Date / Time Performing Clinician Source Performed XR KNEE 4+ VIEWS RIGHT 2021-11-04 18:38:56 Jai Samuel [place] [facility] X-ray of chest, two views 2021-08-31 00:00:00 I [facility] [QL] CMP W/EGFR 2019-10-20 00:00:00 [facility] Spine lumbar wo 2019-10-20 00:00:00 [facility] contrast 48401 . [facility] - PAP 2019-05-02 00:00:[facility] [QL[facility]] CULTURE, URINE, 2019-05-02 00:00:[facility] [QL] URINALYSIS, COMPLETE 2019-05-02 00:00:00 [facility] US Pelvis with Pelvis 2019-04-15 00:00:00 [facility] Transvaginal [id number] [QLH] CULTURE, URINE, 2018-12-31 00:00:00 [facility]OUT[facility] [QLH] URINALYSIS, COMPLETE 2018-12-03 00:00:00 [facility] [QL[facility]] CULTURE, URINE, 2018-12-03 00:00:00 [facility] ROUT[facility] [N] 2D Echo complete, with 2018-11-26 00:00:00 [facility] Doppler [id number] [QLH] CMP W/EGFR 2018-04-23 00:00:00 [facility] [[facility]] LIPID PANEL 2018-04-23 00:00:00 [facility] [[facility]] TSH, 3RD GENERATION 2018-04-23 00:00:00 [facility] W/REFLEX TO FT4 [QLH] CBC (INCLUDES 2018-04-23 00:00:00 [facility] DIFF/PLT) [QLH] HEMOGLOBIN A1c 2018-04-23 00:00:00 [facility] [QL] URINALYSIS, COMPLETE 2017-11-30 00:00:00 [facility] [QLH] CULTURE, URINE, 2017-11-30 00:00:00 [facility] US Pelvis Transvaginal 2017-11-30 00:00:[id number]end[facility] Plan of Care Planned Activity Planned Date Details Comments Source Diagnostic Test 2018-12-17 [N] 2D Echo [facility] Pending 00:00:00 complete, with Doppler 28521 [code = [N] 2D Echo complete, with Doppler 14491] Instructions Bradycardia, [facility] Instructions COVID-19: What to ARTEMIO Loaiza es Patient Do If You Are Medical Center Sick - [facility] (03/02/2021) Encounters Start End Encounter Admission Attending Care Care Encounter Source Date/Time Date/Time Type Type Clinicians Facility Department ID 2021-11-04 Outpatient [facility] [id number] [place] 17:09:22 [id number] [facility] 2021-11-02 Outpatient [facility] [id number] [place] 08:34:50 [id number] [facility] 2021-10-13 Outpatient MAYRA, [facility] [id number] [place] 08:43:25 [facility] [id number] [facility] 2021-09-12 Outpatient [facility] [id number] [place] 15:37:47 [id number] [facility] 2021-09-06 Outpatient GEORGE [facility] [id number] [place] 16:17:59 [facility] [id number] [facility] 2021-12-08 2021-12-08 Outpatient SEB LEBLANC [facility] [id number] [place] 08:50:00 08:50:00 [facility] 2021-12-05 2021-12-05 Nurse Pancho Yu [id number] [place] 00:00:00 00:00:00 Triage Pancho Yu [id number] Health MEDICAL [id number] ELIZABETH [id number] 2021-12-02 2021-12-02 Outpatient GEORGE [facility] [id number] [place] 07:50:00 07:50:00 [facility] 2021-11-23 2021-11-23 Outpatient JAYLIN [facility] [id number] [place] 09:00:00 09:00:00 GABRIEL burnett 2021-11-04 2021-11-04 Office AILIN Samuel [id number] [place] 11:10:00 11:30:[address] [id number] Health [id number] 2021-11-02 2021-11-02 Telephone BrayAILIN 6400 [id number] [place] 00:00:00 00:00:[address] [id number] Health [id number] 2021-09-06 2021-09-06 Telemedici AILIN Samuel [id number] [place] 16:30:00 17:21:[address] [id number] Health [id number] 2021-09-01 2021-09-01 Telephone Kendra Gibbons [place] [id number] [place] 00:00:00 00:00:00 Kendra Gibbons [id number] [facility] [id number] ELIZABETH [id number] 2021-08-27 2021-08-31 Outpatient 1 LAURA, [facility] [id number] [facility] 08:48:00 14:05:00 DAVID Patients Patients 21 [facility] Patie [facility] 2021-08-27 2021-08-31 Discharged [facility] [id number] [facility] 08:48:00 14:05:00 Inpatient Patients [id number] [facility] [id number] Pa tient [address] 2021-08-27 2021-08-31 Inpatient [facility] [id number] 07:48:00 13:05:00 [id number] [facility] 2021-08-24 2021-08-24 Emergency [facility] [id number] [facility] 19:50:00 21:25:00 Clarissa [id number] [facility] 2021-08-24 2021-08-24 Emergency EM Lacy, [facility] [id number] [facility] 19:50:00 21:25:00 Clarissa 20 [facility] 2020-06-30 2020-06-30 AILIN Murguia [facility] [id number] [place] 09:45:00 09:45:00 t; YAN BEEBE Ph, evens BEEBE NP 2020-06-23 2020-06-23 AILIN Murguia [facility] [id number] [place] 11:30:00 11:30:00 t; YAN BEEBE Ph, evens BEEBE NP 2020-06-14 2020-06-14 [id number] [place] 11:00:00 11:00:00 t; JOSELO VARGAS, y - [facility] rachel JOSUE M.D. Internation evens [facility] 2020-06-10 2020-06-10 AILIN Feliz [facility] [id number] [place] 10:30:00 10:30:00 t; JOSELO VARGAS Physi Milena Pettit M.D. 2020-06-07 2020-06-07 Fiordaliza SIDHU, [facility] Family [id number] [place] 07:50:00 07:50:00 t; Milena JIMENEZ Medicine - Physici [facility] Kenneth JIMENEZ M.D. [place] 2020-04-14 2020-04-14 Appointchika VARGAS [facility] Multispecia [id number] [place] 11:30:00 11:30:00 t; JOSELO VARGAS lty - Physi ci Milena JOSUE Internation evens [facility] 2020-04-14 2020-04-14 Fiordaliza SIDHU, [facility] UTP [id number] [place] 09:50:00 09:50:00 t; Milena JIMENEZ Ph evens Mariee M.D. 2020-01-19 2020-01-19 Fiordaliza SIDHU, [facility] Family [id number] [place] 11:10:00 11:10:00 t; Milena JIMENEZ Medicine - Physici [facility] Kenneth JIMENEZ M.D. [place] 2019-11-18 2019-11-18 Appointchika VARGAS [facility] [id number] [place] 11:00:00 11:00:00 t; JOSELO VARGAS Physi Milena Pettit M.D. 2019-11-13 2019-11-13 [id number] [place] 13:00:00 13:00:00 t; JOSELO VARGAS lty - Physi rachel JOSUE M.D. Internation evens [facility] 2019-11-06 2019-11-06 Fiordaliza HALL, [facility] UTP [id number] [place] 10:30:00 10:30:00 t; YAN BEEBE Ph, ans ALIJANA, NP 2019-10-20 2019-10-20 Fiordaliza SIDHU, [facility] UTP [id number] [place] 10:10:00 10:10:00 t; BARBARA, M.evens Thomas Ph, M.D. 2019-09-19 2019-09-19 [facility], [facility] [id number] [place] 09:00:00 09:00:00 t; SLICK DUNAWAY M.D. P hysici ALLAN, ans M.D. 2019-09-15 2019-09-15 [facility], [facility] [id number] [place] 13:30:00 13:30:00 t; Milena ALEGRE Ph evens Presley M.D. 2019-08-12 2019-08-12 [facility] RAFAEL, [facility] [id number] [place] 11:30:00 11:30:00 t; YAN BEEBE evens Wood NP 2019-08-04 2019-08-04 [facility] Women's [id number] [place] 11:00:00 11:00:00 t; [facility] [place] [place] evens ALEGRE M.D. [facility] 2019-07-24 2019-07-27 [facility], [facility] 0120 [facility] 13:05:00 19:10:00 CODEY 2019-07-24 2019-07-24 Fiordaliza [facility] [id number] [place] 13:00:00 13:00:00 t; Elham COLLAZO M.D. ans SHERVIN, M.D. 2019-07-23 2019-07-23 Fiordaliza MULLER [facility] Obstetrics [id number] [place] 10:30:00 10:30:00 t; Margarita SCHMIDT i, M.D. Gynecology Mandie Rueda M.D. Clinic 2019-07-16 2019-07-16 [facility] [id number] [place] 15:30:00 15:30:00 t; YAN BEEBE evens Wood NP 2019-06-27 2019-06-27 [facility] Family [id number] [place] 13:00:00 13:00:00 t; Milena JIMENEZ Medicine - Donna [facility] Kenneth JIMENEZ M.D. [place] 2019-06-17 2019-06-17 Fiordaliza VARGAS [facility] Multispecia [id number] [place] 12:00:00 12:00:00 t; JOSELO VARGAS lt - Physi rachel JOSUE M.D. Internation evens [facility] 2019-05-13 2019-05-13 iFordaliza HALL, [facility] [id number] [place] 11:00:00 11:00:00 t; YAN BEEBE Ph milagros HALL, [facility] YAN BEEBE 2019-05-09 2019-05-09 Fiordaliza ARIAS, [facility] [id number] [place] 10:45:00 10:45:00 t; ANABEL ARIAS M.D. Physici HAJAR, ans M.D. 2019-05-02 2019-05-02 Fiordaliza VERA [facility] Women's [id number] [place] 15:00:00 15:00:00 t; [facility] codie VERA M.D. [facility] Kenneth IBARRA.Ravi [place] 2019-04-28 2019-04-28 Emergency E MHBL MHBL 7527 MHBL 12:36:00 12:36:00 2019-04-15 2019-04-15 Fiordaliza CORONEL [facility] Women's [id number] [place] 15:40:00 15:40:00 t; [facility] mil[facility]ros CORONEL M.D. [place] evens RAMIREZ M.D. 2019-02-26 2019-02-26 Fiordaliza ARIAS [facility] [id number] [place] 10:30:00 10:30:00 t; ANABEL ARIAS M.D. Physici HAJAR, ans M.D. 2018-12-31 2018-12-31 Fiordaliza CAPELLAN [facility] Women's [id number] [place] 15:00:00 15:00:00 t; MARINO [place] - Physi rachel CAPELLAN M.D. [facility] Kenneth PICHARDO M.D. [place] 2018-12-25 2018-12-25 Fiordaliza HALL [facility] [id number] [place] 13:30:00 13:30:00 t; YAN BEEBE Ph milagros HALL, evens BEEBE NP 2018-12-20 2018-12-20 Appointmen MED [facility] Centralized [id number] [place] 11:30:00 11:30:00 t; MED PROVIDER, Case Phys ici PROVIDER, TCM Management ans TCM 2018-12-08 2018-12-08 [facility] 7526 [facility] 20:00:00 11:53:00 2018-11-27 2018-11-27 Appointmen AILIN CEDENO [facility] [id number] [place] 13:45:00 13:45:00 t; NATALIE CEDENO, Milena Tapia M.D. 2018-11-27 2018-11-27 AppointAILIN Edwards Multispecia [id number] [place] 10:30:00 10:30:00 t; JOSELO VARGAS, [facility] - Physi Milena JOSUE Internation evens [facility] 2018-11-26 2018-11-26 AppointAILIN Nettles Non-Invasiv [id number] [place] 13:30:00 13:30:00 t; CÉSAR NON-INVASIV e - [place] Physici NON-INVASI E Medical [facility] 2018-11-26 2018-11-26 AILIN Santamaria Family [id number] [place] 10:30:00 10:30:00 t; Milena JIMENEZ Medicine - Physic [facility] Kenneth JIMENEZ M.D. [place] 2018-11-01 2018-10-31 Inpatient E [facility] CAR 7525 [facility] 10:09:00 20:37:00 2018-09-09 2018-09-09 AppointAILIN Robertson [facility] [id number] [place] 09:20:00 09:20:00 t; JORDI WONG, Ph Milena Villanueva M.D. 2018-04-23 2018-04-23 Appointmen AILIN VARGAS Community [id number] [place] 13:00:00 13:00:00 t; JOSELO VARGAS, [facility] and Ph milagros JOSUE M.D. [facility] evens [facility] 2018-03-06 2018-03-06 Appointmen ALICIA [facility] UTP [id number] [place] 12:00:00 12:00:00 t; JOSELO VARGAS Physi ci SHAOJIE, M.D. ans M.D. 2018-02-19 2018-02-19 Appointmen ALICIA [facility] [id number] [place] 11:30:00 11:30:00 t; JOSELO VARGAS Physi ci SHAOJIE, M.D. ans M.D. 2018-02-19 2018-02-19 Appointmen ALICIA [facility] UTP [id number] [place] 11:30:00 11:30:00 t; JOSELO VARGAS Physi ci SHAOJIE, M.D. ans M.D. 2017-12-26 2017-12-26 AppointKARINE Payan, [facility] [id number] [place] 14:30:00 14:30:00 t; Milena SCHMIDT Physic Milena Herrera 2017-11-30 2017-11-30 Appointchika [facility] Family [id number] [place] 13:00:00 13:00:00 t; Milena JIMENEZ Medicine evens Garcia M.D. 2017-11-21 2017-11-21 Appointchika [facility] Psychiatry [id number] [place] 11:00:00 11:00:00 t; JOSELO VARGAS Physi ci SHAOJIE, M.D. ans M.D. 2017-11-06 2017-11-06 Appointchika ALICIA [facility] [id number] [place] 12:00:00 12:00:00 t; JOSELO VARGAS Physi ci SHAOJIE, M.D. ans M.D. 2017-08-30 2017-08-30 AppointAILIN Resendiz Womens [id number] [place] 10:00:00 10:00:00 t; Blank PICHARDO Physic Milena Hernandez M.D. 2017-08-06 2017-08-06 AppointAILIN Edwards Psychiatry [id number] [place] 14:00:00 14:00:00 t; JOSELO VARGAS Physi Milena Pettit M.D. 2017-08-06 2017-08-06 Appointmen JUDITH, UTP Cardiology [id number] [place] 10:40:00 10:40:00 t; JORDI WONG, Ph Milena Villanueva M.D. 2017-07-27 2017-07-27 Appointmen NAHUM, UTP Family [id number] [place] 10:30:00 10:30:00 t; Milena JIMENEZ ans AMBER, M.D. 2017-06-26 2017-06-26 Appointmen ALICIA, UTP UTP [id number] [place] 13:30:00 13:30:00 t; JOSELO VARGAS Physi Milena Pettit M.D. 2017-04-24 2017-04-24 Appointmen ALICIA, UTP UTP [id number] UT 12:00:00 12:00:00 t; JOSELO VARGAS Physi Milena Pettit M.D. 2017-01-11 2017-01-11 Appointmen NAHUM, UTP UTP [id number] UT 13:45:00 13:45:00 t; Milena JIMENEZ Ph, ans AMBER, M.D. 2017-01-02 2017-01-02 Appointmen ALICIA, UTP UTP [id number] UT 14:00:00 14:00:00 t; JOSELO VARGAS Physi Milena Pettit M.D. 2017-01-02 2017-01-02 Appointmen DA, UTP UTP [id number] UT 10:30:00 10:30:00 t; HIRAL ROBERSON, Elbert BLACKMAN, P.ASukhjinder horner P.A. 2016-10-03 2016-10-03 Appointmen NAHUM, UTP UTP [id number] [place] 11:00:00 11:00:00 t; Milena JIMENEZ Ph, ans AMBER, M.D. 2016-09-27 2016-09-27 Appointmen ALICIA, UTP UTP [id number] UT 13:00:00 13:00:00 t; JOSELO VARGAS Milena Bianchi M.D. 2016-09-20 2016-09-20 [facility]UM, UTP UTP [id number] [place] 11:00:00 11:00:00 t; Milena JIMENEZ Ph evens Mariee M.D. 2016-09-05 2016-09-05 [facility]UM, UTP UTP [id number] [place] 14:00:00 14:00:00 t; Milena JIMENEZ Ph evens Mariee M.D. 2016-07-28 2016-07-28 [facility] NA[facility]UM, UTP UTP [id number] [place] 10:45:00 10:45:00 t; Milena JIMENEZ Ph evens Mariee M.D. 2016-07-28 2016-07-28 [facility] ROXANA, UTP UTP [id number] UT 09:30:00 09:30:00 t; BLANCA SCHMIDT, Ph Milena Cruz M.D. 2016-06-28 2016-06-28 [facility] VOWELS, [facility] UTP [id number] UT 10:00:00 10:00:00 t; VOWELS, Beth MABRY M.D. ans M.D. 2016-06-16 2016-06-16 [facility] ROMI BUTLER, [facility] UTP [id number] [place] 14:30:00 14:30:00 t; ROMI JOHNSON M.D. Ph evens Tsang M.D. 2016-01-13 2016-01-13 [facility]- UTP UTP [id number] [place] 15:00:00 15:00:00 t; Titus calvillo Phys ici Montalvo-C M.D. ans hen, Rolf, M.D. 2015-11-16 2015-11-16 [facility]- UTP UTP [id number] [place] 10:30:00 10:30:00 t; Titus calvillo Phys Titus Alvarez M.D., M.D. 2015-09-29 2015-09-29 [facility] MUNIRA UTP UTP [id number] [place] 12:00:00 12:00:00 t; GABRIELLA Physi ci SHACKELFOR M.D. ans D, JAMES, M.D. 2015-07-26 2015-07-26 AILIN Myles UTP [id number] UT 13:30:00 13:30:00 t; Jordi GUSMAN i, M.D. ans ROBERT, M.D. Results Test Description Test Time Test Comments Results Result Sourc e Comments CHEST 2 VIEWS 2021-08-31 09:04:00 [facility] : 1985 Sex: F [place] [address] Patient Name: CHRISTA MIRELES MR #: [id number] : 1985 Age/Sex: 36/F Req #: [id number] Adm Physician: DAVID SANCHEZ MD Ordered by: CHERI SAHU ACID MIXER Report #: [id number] Location: MED/SURG2 Room/Bed: [facility] Procedure: [id number] DX/CHEST 2 VIEWS Exam Date: 08/31/21 Exam Time: 0600 REPORT STATUS: Signed Chest, PA and lateral History: Follow-up. Comparison: 08/29/2021. IMPRESSION: There are mildly increased bibasilar and perihilar opacities, slightly improved from the prior examination. There is no evidence for new large focal consolidation, pneumothorax, or significant volume pleural effusion. The cardiomediastinal silhouette is stable in appearance. No acute osseous abnormality is identified. Signed by: Keegan Gerber MD on 08/31/2021 9:04 AM Dictated By: KEEGAN GERBER MD 6 Transcribed By: KELLY on 08/31/21 09 COPY TO: CHERI SAHU NP Serum or plasma urea nitrogen measurement (mass/volume) 2021 06:16:00 Test Item Value Reference Range Interpretation Comme nts Blood Urea Nitrogen (test code = 3094-0) 9 7-26 [facility] creatinine measurement (mass/volume)2021-08-31 06:16:00 Test Item Value Reference Range Interpretation Comments Creatinine (test code = 2160-0) 0.66 0.57-1.11 [facility] plasma urea nitrogen/creatinine mass lhwza4234-86-37 06:16:00 Test Item Value Reference Range Interpretation Comments BUN/Creatinine Ratio (test code = 14 09-17 3097-3) [facility] filtration rate (GFR) ijsbzlrhoxpbq2260-53-41 06:16:00 Test Item Value Reference Range Interpretation Comments Estimat Glomerular 100 See_Comment [Automat ed message] The Filtration Rate (test system which generated code = 163545829) this resul t transmitted reference range : 60-. The reference r jeannie was not used to int erpret this result as normal/abnormal . [facility] HospitalGlucose odwrnfonmpj1376-15-78 06:16:00 Test Item Value Reference Range Interpretation Comments Glucose Level (test code = BUY2027) 78 74-118 [facility] plasma calcium measurement (mass/volume)2021-08-31 06:16:00 Test Item Value Reference Range Interpretation Comments Calcium Level (test code = 74448-4) 7.9 8.4-10.2 [facility] leukocytes automated count (number/volume)2021-08-31 06:16:00 Test Item Value Reference Range Interpretation Comments White Blood Count (test code = 6690-2) 3.81 4.8-10.8 [facility] HospitalBlood erythrocytes automated count (number/volume)2021-08-31 06:16:00 Test Item Value Reference Range Interpretation Comments Red Blood Count (test code = 789-8) 4.45 3.6-5.1 [facility]Blood hemoglobin measurement (moles/volume) 2021-08-31 06:16:00 Test Item Value Reference Range Interpretation Comments Hemoglobin (test code = 65030-6) 12.7 12.0-16.0 [facility] HospitalAutomated blood hematocrit (volume fraction) 2021-08-31 06:16:00 Test Item Value Reference Range Interpretation Comments Hematocrit (test code = 4544-3) 41.2 34.2-44.1 [facility] HospitalAutomated erythrocyte mean corpuscular volume 2021-08-31 06:16:00 Test Item Value Reference Range Interpretation Comments Mean Corpuscular Volume (test code = 92.6 81-99 787-2) [facility] HospitalAutomated erythrocyte mean corpuscular hemoglobin (mass per erythrocyte)2021-08-31 06:16:00 Test Item Value Reference Range Interpretation Comments Mean Corpuscular Hemoglobin (test code 28.5 28-32 = 785-6) [facility] HospitalAutomated erythrocyte mean corpuscular hemoglobin concentration measurement (mass/volume)2021-08-31 06:16:00 Test Item Value Reference Range Interpretation Comments Mean Corpuscular Hemoglobin Concent 30.8 31-35 (test code = 786-4) [facility] HospitalRDW KfxAn-Kjr6915-01-08 06:16:00 Test Item Value Reference Range Interpretation Comments Red Cell Distribution Width (test code 14.3 11.7-14.4 = 49173-5) [facility] HospitalAutomated blood platelet count (count/volume) 2021-08-31 06:16:00 Test Item Value Reference Range Interpretation Comments Platelet Count (test code = 777-3) 182 140-360 [facility] HospitalAutomated blood segmented neutrophil count as percentage of total iacnwbaoqy3692-54-46 06:16:00 Test Item Value Reference Range Interpretation Comments Neutrophils (%) (Auto) (test code = 46.2 38.7-80.0 62667-7) [facility] HospitalAutomated blood lymphocyte count as percentage ot total esojguapvt9970-67-57 06:16:00 Test Item Value Reference Range Interpretation Comments Lymphocytes (%) (Auto) (test code = 41.7 18.0-39.1 736-9) [facility] HospitalAutomated blood monocyte count as percentage of total bkbwwbomxv0081-21-01 06:16:00 Test Item Value Reference Range Interpretation Comments Monocytes (%) (Auto) (test code = 9.2 4.4-11.3 5905-5) [facility] HospitalAutomated blood eosinophil count as percentage of total exsbxbkdeh8331-37-99 06:16:00 Test Item Value Reference Range Interpretation Comments Eosinophils (%) (Auto) (test code = 1.6 0.0-6.0 713-8) [facility] HospitalAutomated blood basophil count as percentage of total fkslfenvul5642-81-90 06:16:00 Test Item Value Reference Range Interpretation Comments Basophils (%) (Auto) (test code = 0.3 0.0-1.0 706-2) [facility] HospitalFluoroscopic procedure less than one hour paxhxiue3985-66-05 06:16:00 Test Item Value Reference Range Interpretation Comments IM GRANULOCYTES % (test code = IM 1.0 0.0-1.0 GRANULOCYTES %) [facility] HospitalAutomated blood neutrophil lfwtk3887-64-46 06:16:00 Test Item Value Reference Range Interpretation Comments Neutrophils # (Auto) (test code = 1.8 2.1-6.9 751-8) [facility] HospitalBlood lymphocytes count (number/volume) 2021-08-31 06:16:00 Test Item Value Reference Range Interpretation Comments Lymphocytes # (Auto) (test code = 1.6 1.0-3.2 20198-3) [facility] automated count (number/volume)2021-08-31 06:16:00 Test Item Value Reference Range Interpretation Comments Monocytes # (Auto) (test code = 742-7) 0.4 0.2-0.8 [facility] HospitalAutomated blood eosinophil dnaud1960-70-70 06:16:00 Test Item Value Reference Range Interpretation Comments Eosinophils # (Auto) (test code = 0.1 0.0-0.4 711-2) [facility] HospitalAutomated blood basophil count (count/volume) 2021-08-31 06:16:00 Test Item Value Reference Range Interpretation Comments Basophils # (Auto) (test code = 704-7) 0.0 0.0-0.1 [facility] HospitalFluoroscopic procedure less than one hour akvwzswk5325-96-93 06:16:00 Test Item Value Reference Range Interpretation Comments Absolute Immature Granulocyte (auto 0.04 0-0.1 (test code = Absolute Immature Granulocyte (auto) [facility] sodium measurement (moles/volume)2021-08-31 06:16:00 Test Item Value Reference Range Interpretation Comments Sodium Level (test code = 2951-2) 143 136-145 [facility]er[facility] or plasma potassium measurement (moles/volume)2021-08-31 06:16:00 Test Item Value Reference Range Interpretation Comments Potassium Level (test code = 2823-3) 4.1 3.5-5.1 [facility] or plasma chloride measurement (moles/volume)2021-08-31 06:16:00 Test Item Value Reference Range Interpretation Comments Chloride Level (test code = 2075-0) 107 98-107 [facility] or plasma carbon dioxide, total measurement (moles/volume)2021-08-31 06:16:00 Test Item Value Reference Range Interpretation Comments Carbon Dioxide Level (test code = 27 22-29 2027-) [facility] or plasma anion iet1037-74-98 06:16:00 Test Item Value Reference Range Interpretation Comments Anion Gap (test code = 15722-6) 13.1 8-16 [facility] HospitalFluoroscopic procedure less than one hour uuujpegg9009-86-32 06:23:00 Test Item Value Reference Range Interpretation Comments Hemoglobin A1c Percent (test code = 5.0 4.0-7.0 Hemoglobin A1c Percent) [facility] HospitalPhosphorus kklusweqtwn4498-62-99 06:23:00 Test Item Value Reference Range Interpretation Comments Phosphorus Level (test code = SCX7475) 3.7 2.3-4.7 [facility] or plasma magnesium measurement (mass/volume)2021-08-30 06:23:00 Test Item Value Reference Range Interpretation Comments Magnesium Level (test code = 75973-6) 1.9 1.3-2.1 [facility] plasma total bilirubin measurement (mass/volume)2021-08-30 06:23:00 Test Item Value Reference Range Interpretation Comments Total Bilirubin (test code = 1975-2) 0.5 0.2-1.2 [facility] HospitalFluoroscopic procedure less than one hour rdnymajb2619-50-05 06:23:00 Test Item Value Reference Range Interpretation Comments Aspartate Amino Transf (AST/SGOT) (test 28 5-34 code = Aspartate Amino Transf (AST/SGOT)) [facility] or plasma alanine aminotransferase measurement (enzymatic activity/volume)2021-08-30 06:23:00 Test Item Value Reference Range Interpretation Comments Alanine Aminotransferase (ALT/SGPT) 26 0-55 (test code = 1742-6) [facility] or plasma protein measurement (mass/volume)2021-08-30 06:23:00 Test Item Value Reference Range Interpretation Comments Total Protein (test code = 2885-2) 6.3 6.5-8.1 [facility] plasma albumin measurement (mass/volume)2021-08-30 06:23:00 Test Item Value Reference Range Interpretation Comments Albumin (test code = 1751-7) 3.6 3.5-5.0 [facility] HospitalPlasma globulin measurement (mass/volume) 2021-08-30 06:23:00 Test Item Value Reference Range Interpretation Comments Globulin (test code = 13122-4) 2.7 2.3-3.5 [facility] plasma albumin/globulin mass ratio 2021-08-30 06:23:00 Test Item Value Reference Range Interpretation Comments Albumin/Globulin Ratio (test code = 1.3 0.8-2.0 1759-0) [facility] or plasma alkaline phosphatase measurement (enzymatic activity/volume)2021-08-30 06:23:00 Test Item Value Reference Range Interpretation Comments Alkaline Phosphatase (test code = 46 40-150 6768-6) [facility] or plasma triglyceride measurement (mass/volume)2021-08-30 06:23:00 Test Item Value Reference Range Interpretation Comments Triglycerides Level (test code = 157 0-149 2571-8) [facility] or plasma cholesterol measurement (mass/volume)2021-08-30 06:23:00 Test Item Value Reference Range Interpretation Comments Cholesterol Level (test code = 2093-3) 171 0-199 [facility] or plasma cholesterol in LDL measurement (mass/volume)2021-08-30 06:23:00 Test Item Value Reference Range Interpretation Comments LDL Cholesterol (test code = 2089-1) 105 60-130 [facility] plasma cholesterol in HDL measurement (mass/volume)2021-08-30 06:23:00 Test Item Value Reference Range Interpretation Comments HDL Cholesterol (test code = 2085-9) 35 40-60 [facility] or plasma total cholesterol/cholesterol in HDL mass xkxeo5283-68-48 06:23:00 Test Item Value Reference Range Interpretation Comments Cholesterol/HDL Ratio (test code = 4.9 3.0-3.6 9830-1) [facility] or plasma thyrotropin measurement by detection limit <= 0.005 miu/l (units/volume)2021-08-30 06:23:00 Test Item Value Reference Range Interpretation Comments Thyroid Stimulating Hormone (TSH) (test 1.325 0.350-4.940 code = 94817-4) [facility] HospitalCHE[facility] SINGLE (PORTABLE)2021-08-29 11:04:[address] : 1985 Sex: F [facility] [address] [address] Patient Name: CHRISTA MIRELES MR #: [id number] : 1985 Age/Sex: 36/F Req #: [id number] Adm Physician: DAVID SANCHEZ MD Ordered by: CHRISTINE YANEZ MD Report #: [id number] Location: [facility] Room/Bed: [facility] Procedure: [id number] DX/CHEST SINGLE (PORTABLE) Exam Date: 08/29/21 Exam Time: 0946 REPORT STATUS: Signed Exam: CHEST SINGLE (PORTABLE) Date: 08/29/2021 11:03 AM Indication: Congestion Comparison: CXR of the prior day FINDINGS: Lines/Tubes:None Lungs:The lungs are well inflated. There is perihilar fullness and indistinctness of the pulmonary vasculature. No focal consolidation or airspace edema. Pleura:No pleural effusion. No pneumothorax. Heart/Mediastinum:The cardiomediastinal silhouette is unchanged in size and contour. Bones/Soft Tissues: No acute osseous injury. Abdomen: No free air below the diaphragm. IMPRESSION: Unchanged mild central pulmonary vascular congestion. No airspace edema or pneumonia. Signed by: Fernando Tapia on 08/29/2021 11:04 AM Dictated By: FERNANDO TAPIA MD 06 Transcribed By: PSCRIBE on 08/29/211103 COPY TO: CHRISTINE YANEZ MDTroponin I measurement by highly sensitive enzyme rnwfujgosii7502-09-74 15:33:00 Test Item Value Reference Range Interpretation Comments Troponin I (test code = 60074-6) 0.100 0-0.300 [facility]LE (PORTABLE)2021-08-27 13:11:00 [facility] : 1985 Sex: F [place] [address] Patient Name: CHRISTA MIRELES MR #: [id number] : 1985 Age/Sex: 36/F Req #:[id number] Adm Physician: DAVID SANCHEZ MD Ordered by: CHRISTINE YANEZ MD Report #: [id number] Location:MED/SURG2 Room/Bed: [facility] Procedure: [id number] DX/CHEST SINGLE (PORTABLE) Exam Date: 08/27/21 Exam Time: 1155 REPORT STATUS: Signed Chest dated 08/27/2021 Clinical Information: Cough Comment: Heart is enlarged. Pulmonary vasculature is indistinct. Interstitial disease is seen bilaterally suggestive of vascular congestion. No pleural effusion or pneumothorax is seen. Impression: Cardiomegaly with vascular congestion. Signed by: Gabriella Dee on 08/27/2021 1:11 PM Dictated By: GABRIELLA DEE MD ElectronicallySigned By: GABRIELLA DEE MD on 08/27/21 1314 Transcribed By: KELLY on 08/27/21 1311 COPY TO: CHRISTINE YANEZ MD COMPREHENSIVE METABOLIC [id number] 20:48:00 Test Item Value Reference Range Interpretation Comments SODIUM (test code = 133 MMOL/L 133-145 N NA) POTASSIUM (test code = 4.0 MMOL/L 3.6-5.2 N K) CHLORIDE (test code = 104 MMOL/L 100-108 N CL) CARBON DIOXIDE (test 30 MMOL/L 22-32 N code = CO2) GLUCOSE (test code = 107 MG/DL 65-99 H Results of this assay GLU) method may be f alsely depressed orele vated if patient is t aking sulfasalazine. BLOOD UREA NITROGEN 9 MG/DL 6-20 N (test code = BUN) GLOMERULAR FILTRATION 80 64-149 N Report ing units: RATE (test code = GFR) mL/mi n/1.73m\S\2 (Modified MDRD Formula) CREATININE (test code 0.80 MG/DL 0.60-1.00 N = CREAT) TOTAL PROTEIN (test 6.7 G/DL 6.4-8.2 N code = PROT) ALBUMIN (test code = 3.8 G/DL 3.4-5.0 N ALB) CALCIUM (test code = 8.3 MG/DL 8.7-10.5 L CA) BILIRUBIN TOTAL (test 0.6 MG/DL 0.0-1.0 N code = BILT) SGOT/AST (test code = 33 Units/L 15-37 N Result s of this assay AST) method may be f alsely depressed orele vated if patient is t aking sulfasalazine. SGPT/ALT (test code = 26 Units/L 30-65 L Result s of this assay ALT) method may be f alsely depressed orele vated if patient is t aking sulfasalazine. ALKALINE PHOSPHATASE 65 Units/L 50-136 N TOTAL (test code = ALKP) Coronavirus 2019 nCoV [id number] 20:47:00 Test Item Value Reference Range Interpretation Comments Coronavirus 2019 Positive Negative A ID NOW COVI D-19 assay nCoV Bedside (test performed on the ID NOW code = [id number]) Instrum ent lala rapid molecular in vi tro diagnostic test utilizing anisothermal nu cleic acid amplification t echnology intendedfor the qualitative det ection of nucleic acid fr om ohaMYRL-[id number]-6 v iral RNA in direct nasal , [...] , and epidemiological informatio n. CBC W/AUTO [id number] 20:40:00 Test Item Value Reference Range Interpretation [...] x10 3/uL 0.0-0.2 - XR CHEST 1 [id number] 20:28:00 [facility] 1985 Sex: F Patient Name: CHRISTA MIRELES Unit No: [id number] EXAMS: CPT CODE: [id number] XR CHEST 1 V 42741 Reason: cough EXAM: - XR CHEST 1 V HISTORY: Cough and fever. COMPARISON: None available time of interpretation. FINDINGS: Single AP view of the chest is provided. Heart size and vascularity are within normal limits for the position. There is no evidence of a focal consolidation. Limited exam due to overlying soft tissues in position. There is no pleural effusion or pneumothorax. There is no definite acuteosseous abnormality. Mild dextroscoliosis in midthoracic spine. IMPRESSION: No definite focal consolidation. at 2027 Reported and signed by: Cal Galvan MD CC: Clarissa Montesinos DO Technologist: DANIELE Cordova Trscrpt Dt / (2027)[id number] Orig Print D/T: S: 08/24/2021 (2030) [facility] NAME: CHRISTA MIRELES [facility] PHYS: Clar[place] [address] : 1985 AGE: 36 SEX: F LOC: PATRICE PHONE #: EXAM DATE: 08/24/2021 STATUS: PRE [...] MICROALBUMIN/CREATI follows: Category NINE RATIO, RANDOM Result (m cg/mg URINE) creatinine) Nor mal <30Microalbumin uria 30-299 Clinical albuminuria > O R = 300 The ADA recomme nds that at least two of threespecimens collected withi n a 3-6 month period be abnormal before consider ing a patient to bewi thin a diagnostic christin pati. [facility][QL] LIPID [id number] 13:21:00 Test Item Value Reference Range Interpretation Comments CHOLESTEROL, TOTAL; 155 mg/dl <200 N Normal (test code = 2093-3) HDL CHOLESTEROL; 44 mg/dl > OR = 50 Below Low Threshold (test code = 2085-9) TRIGLYCERIDES; 64 mg/dl <150 N Normal (test code = 2571-8) LDL-CHOLESTEROL; 96 {MG/DL JAX} N Reference range: Normal (test code = <100 Sarmad irable range 77002-0) <100 mg/dL for primary prevent ion; <70 [...] SS et al . LEONARDO. 2013;310( 19): 7817-2200 (http://educati on.Zola estDiagnZympis. com/f aq/CNL310) CHOL/HDLC RATIO 3.5 {CALC} <5.0 N (test code = CHOL/HDLC RATIO) NON HDL CHOLESTEROL 111 {MG/DL <130 N For zuly ents with (test code = NON HDL JAX} diabete s plus 1 CHOLESTEROL) major ASCVD ris k factor, treatin g to a non-HDL-C goa l of <100 mg/dL (LDL -C of <70 mg/dL) is considered a therapeutic opt ion. [facility][QL] HEPATITIS C [id number] 13:21:00 Test Item Value Reference Range Interpretation Comments HEPATITIS C NON-REACTIVE NON-REACTIVE N ANTIBODY; Normal (test code = 41133-2) SIGNAL TO CUT-OFF 0.02 <1.00 N HCV antibo dy was (test code = SIGNAL non-reac tive. There TO CUT-OFF) is no laborator y evidence of HCV infection. In m ost cases, no furth er action is requi red. However,if rece nt HCV exposure is suspected, a te [place] HCV RNA([place] [address]) is sugtrung jaind. For additional information ple ase refer tohttp://educat ion.GoMiles estdiagnostics. com/fa q/KYB86g0(This link is being provid ed for informational/e ducati onal purposes o nly.) [facility][QL] HEMOGLOBIN [id number] 13:21:00 Test Item Value Reference Range Interpretation Comments HEMOGLOBIN A1c; 4.7 {% of <5.7 N For the purp ose of Normal (test code total} screening for the = 4548-4) presence ofdiab etes: <5.7% Consisten t with the absence of diabetes5.7-6.4 % Consistent with increased risk for diabetes (predi abetes)> or =6.5% Consis tent with diabetes T his assay result is consistent with a decreased risko f diabetes. Curre ntly, no consensus exist s regarding use ofhemoglobin A1 c for diagnosis of di abetes in children. Ac cording to [place] [employer] [employer] (ADA)guidelines , hemoglobin A1c <7.0% represents optimalcontrol in non- di abetic patients. Differentmetric s may apply to specif ic patient populat ions. Standards of Me dical Care in Diabete s(ADA). [facility][QLH] URINALYSIS, [id number] 16:20:01 Test Item Value Reference Range Interpretation Comments UA Turbidity (test code = 50171-6) Clear Clear UA Spec Grav (test code = 5810-7) 1.012 <=1.030 UA pH (test code = 5803-2) 7.0 5.0-8.0 UA Protein (test code = 30764-0) Negative Negative UA Glucose (test code = 83985-5) Negative Negative UA Ketones (test code = 31990-8) Negative Negative UA Bili (test code = 5770-3) Negative Negative UA Blood (test code = 5794-3) Negative Negative UA Nitrite (test code = 5802-4) Negative Negative UA Leuk Est (test code = 5799-2) Negative Negative UA RBC (test code = 65932-6) 1 {/HPF} 0-2 UA WBC (test code = 91990-9) <1 0-5 UA Bacteria (test code = 92645-6) Occasional None Seen UA Mucus (test code = 8247-9) Few None Seen UA Sq Epi (test code = 06723-5) Occasional Few UA Color (test code = 5778-6) Ltyellow UROBILINOGEN (test code = 37885-8) <=1.0 0.1-1.0 [facility]] CULTURE, URINE, [id number] 16:20:01 Test Item Value Reference Range Interpretation Comments FINAL REPORT (test code = FINAL No Growth REPORT) [facility]. [facility] - [id number] 00:00:00 Test Item Value Reference Range Interpretation Comments Case (test code = Click ImageLink button N Case) for report. Specimen 1 (test code Click ImageLink button N = Specimen 1) for report. [facility] Pelvis with Pelvis Transvaginal [id number] 12:40:00 PROCEDURE INFORMATION:Exam: US Pelvis Complete, Transabdominal [...] ovarian cyst.Manolo Mckeon MD On 04/29/2019 15:51:15; [id number]--Bxut by: Manolo Mckeonictated Date/time: 04/29/19 15:51Electronically Signed by: Manolo Mckeon MD 04/29/2014:51FINAL REPORT[facility]] CULTURE, URINE, ROUTINE 2019-01-03 03:00:00 Test Item Value Reference Range Interpretation Comments CULTURE (test code See Comment CULTURE, URINE, ROUTINE = CULTURE) MICRO NUMBER: [id number] TEST STATUS: F INAL SPECIMEN SOURCE : URINE SPECIMEN QUALIT Y: ADEQUATE RESULT : No GrowthNO COLLEC TION DATE RECEIVED. WE HUIZAR VE USEDTHE E SPECIMEN WAS RE CEIVED BY [facility] THE COLLECTION DATE . IF THISIS INCORREC T, PLEASE CONTACT CLIENT SERVICES.PHONE NUMBER: [phone] [facility][O] Urine Dipstick (In Office)2018-12-31 00:00:00 Test Item Value Reference Range Interpretation Comments Glucose (test code = Glucose) negative N LEUKOCYTES (test code = LEUKOCYTES) negative N NITRITE; Normal (test code = negative N 73360-8) UROBILINOGEN; Normal (test code = 0.2 N 67779-1) PROTEIN; Normal (test code = negative N 96781-5) pH (test code = pH) 5.5 N URINE BLOOD; Normal (test code = trace N 54384-1) SPECIFIC GRAVITY; Normal (test code 1.030 N = 2965-2) KETONES; Normal (test code = negative N 14855-9) BILIRUBIN; Normal (test code = negative N 69987-6) [facility]] URINALYSIS, [id number] 08:48:00 Test Item Value Reference Range Interpretation Comments COLOR; Normal (test code = 5778-6) YELLOW YELLOW N APPEARANCE (test code = APPEARANCE) CLEAR CLEAR N SPECIFIC GRAVITY; Normal (test code 1.015 1.001-1.035 N = 2965-2) PH; Normal (test code = 2756-5) 8.0 5.0-8.0 N GLUCOSE; Normal (test code = NEGATIVE NEGATIVE N 1547-9) BILIRUBIN; Normal (test code = NEGATIVE NEGATIVE N 91760-1) KETONES; Normal (test code = NEGATIVE NEGATIVE N 85934-7) OCCULT BLOOD; Abnormal (test code = 3+ NEGATIVE A 51952-0) PROTEIN; Abnormal (test code = 1+ NEGATIVE A 18323-7) NITRITE; Normal (test code = NEGATIVE NEGATIVE N 82499-0) LEUKOCYTE ESTERASE (test code = NEGATIVE NEGATIVE N LEUKOCYTE ESTERASE) WBC; Normal (test code = 6690-2) 0-5 < OR = 5 N RBC; Abnormal (test code = 789-8) 3-10 < OR = 2 A SQUAMOUS EPITHELIAL CELLS (test 0-5 < OR = 5 code = 92450-9) BACTERIA; Abnormal (test code = FEW NONE SEEN A 630-4) HYALINE CAST; Normal (test code = NONE SEEN NONE SEEN N 12413-9) [facility]] CULTURE, URINE, [id number] 08:48:00 Test Item Value Reference Range Interpretation Comments CULTURE (test See Comment A CULTURE, URINE , ROUTINE code = CULTURE) MICRO NUMBER : [id number] TEST STATUS: FI NAL SPECIMEN SOURCE : URINE SPECIMEN QUALIT Y: ADEQUATE RESULT : Greater than 100,000 CF U/mL of Proteus mirabil is This organism may sh ow imipenem resist ance by mechanisms othe r than a carbapenemase. P.mirabilis - INT RIDDHI AMOX/CLAVULANAT E S 4 AMPICILLIN R >= 32 AMP/SULBACTAM S 4 CEFAZOLIN NR <= 4 2 CEFEPIME S <=1 CEFTRIAXONE S <=1 CIPROFLOXACIN R >=4 GENTAMICIN S <= 1 IMIPENEM I 2 LEVOFLOXACI N R >=8 NITROFURANTOIN R 64 PIP/TAZOBACTAM S <=4 TOBRAMYCIN S <= 1 TRIMETHOPRIM/WALSH LFA S 40S=Susceptible I=Intermediate R=Resistant * = Not TestedNR = Not Reported NN = See Ther apy CommentsTHERAPY COMMENTS Note 1: For inf ections other than unco mplicated UTI caused by E . coli, K. pneumoniae or P . mirabilis: Cefa zolin is resistant if CA C > or = 8 mcg/mL. (Distin guishing susceptible susanne miguel intermediate fo r isolates with RIDDHI < or = 4 mcg/mL requires additi onal testing.) Note 2: For uncomplicated U TI caused by E. coli, K. pneumoniae or P . mirabilis: Cefa zolin is susceptible if RIDDHI <32 mcg/mL and pred icts susceptible to the oral agents cefaclor , cefdinir, cefpo doxime, cefprozil, cefu roxime, cephalexin and loracarbef. [facility]] LIPID [id number] 11:26:00 Test Item Value Reference Range Interpretation Comments CHOLESTEROL, TOTAL; 187 mg/dl <200 N Normal (test code = 3-3) HDL CHOLESTEROL; 53 mg/dl >50 N Normal (test code = 5-9) TRIGLYCERIDES; 74 mg/dl <150 N Normal (test code = 2571-8) LDL-CHOLESTEROL; 117 {MG/DL Reference r jeannie: Above High Threshold JAX} <100 De sirable range (test code = <100 mg/[place] [address]-3) primary prevent ion; <70 mg/dL for patients with C HD or diabetic patien ts with > or = 2 C HD risk factors. L DL-C is now calculat ed using the Jacque calculation, wh ich is a validated novel method providin g better accuracy than the Friedewald equation in the estimation of L DL-C. Abran SS et al . LEONARDO. 2013;310( 19): 1665-5540 (http://educati on.[employer]. com/f aq/DOD014) CHOL/HDLC RATIO 3.5 {CALC} <5.0 N (test code = CHOL/HDLC RATIO) NON HDL CHOLESTEROL 134 {MG/DL <130 For zuly ents with (test code = NON HDL JAX} diabete s plus 1 CHOLESTEROL) major ASCVD ris k factor, treatin g to a non-HDL-C goa l of <100 mg/dL (LDL -C of <70 mg/dL) is considered a therapeutic opt ion. [facility]] CMP [id number] 11:26:00 Test Item Value Reference Range Interpretation Comments GLUCOSE; Normal 86 mg/dl 65-139 N Non-fasting (test code = reference inter [place] 1547-9) UREA NITROGEN (BUN) 11 mg/dl 7-25 N (test code = UREA NITROGEN (BUN)) CREATININE (test 0.60 mg/dl 0.50-1.10 N code = CREATININE) eGFR NON- 118 {ML/MIN/1.7} > OR = 60 N THAI (test code = eGFR NON-) eGFR 137 {ML/MIN/1.7} > OR = 60 N THAI (test code = eGFR ) BUN/CREATININE NOT [...] mg/dl 0.2-1.2 N Normal (test code = 39012-3) ALKALINE PHSPHATASE 58 u/l 33-115 N (test code = ALKALINE PHSPHATASE) AST; Normal (test 18 u/l 10-30 N code = 1916-6) ALT; Normal (test 12 u/l 6-29 N code = 1742-6) [facility]] TSH, 3RD GENERATION W/REFLEX TO [id number] 11:26:00 Test Item Value Reference Range Interpretation Comments TSH, 3RD GENERATION 0.89 {MIU/L} N Referenc e Range > or W/REFLEX TO FT4 (test = 20 Y ears 0.40-4.50 code = TSH, 3RD Ra nges GENERATION W/REFLEX First tr imester TO FT4) 0.26-2.66 Seco nd trimester 0.55- 2.73 Third trimester 0.43-2.91 [facility]] URINALYSIS, [id number] 16:42:01 Test Item Value Reference Range Interpretation Comments UA Turbidity (test code = 76314-4) Clear Clear UA Spec Grav (test code = 5810-7) 1.003 <=1.030 UA pH (test code = 5803-2) 6.0 5.0-8.0 UA Protein (test code = 07137-0) Negative Negative UA Glucose (test code = 90375-9) Negative Negative UA Ketones (test code = 93132-1) Negative Negative UA Bili (test code = 5770-3) Negative Negative UA Blood (test code = 5794-3) Negative Negative UA Nitrite (test code = 5802-4) Negative Negative UA Leuk Est (test code = 5799-2) Negative Negative UA WBC (test code = 97566-9) <1 0-5 UA Bacteria; Abnormal (test code = Many None Seen A 71941-4) UA Sq Epi (test code = 96792-1) Occasional Few UA Color (test code = 5778-6) Ltyellow UROBILINOGEN (test code = 68565-6) <=1.0 0.1-1.0 [facility]] CULTURE, URINE, [id number] 16:42:01 Test Item Value Reference Range Interpretation Comments FINAL REPORT (test Specimen contains 3 or code = FINAL more potential pathogens; REPORT) recommend correlation withurinalysis; if catheterized specimen recommend removal and recollection. Ifclinical situation warrants please call the laboratory for further testing. COMicrobiology [phone]. [facility][O] Urine Dipstick (In Office)2017-11-30 13:20:00 Test Item Value Reference Range Interpretation Comments Glucose (test code = Glucose) N N LEUKOCYTES (test code = LEUKOCYTES) N N NITRITE; Normal (test code = 42460-8) N N UROBILINOGEN; Normal (test code = N N 94538-1) PROTEIN; Normal (test code = 35097-2) N N pH (test code = pH) 6.0 N URINE BLOOD; Normal (test code = N N 71519-7) SPECIFIC GRAVITY; Normal (test code = 1.015 N 2965-2) KETONES; Normal (test code = 90324-1) N N BILIRUBIN; Normal (test code = N N 10938-8) COLOR URINE; Normal (test code = YELLOW N 5778-6) APPEARANCE; Normal (test code = CLEAR N 5767-9) [facility][O] Urine Dipstick (In Office)2017-08-30 10:11:00 Test Item Value Reference Range Interpretation Comments LEUKOCYTES (test code = LEUKOCYTES) Negative N NITRITE; Normal (test code = Negative N 30912-5) PROTEIN; Normal (test code = Negative N 53534-5) URINE BLOOD; Abnormal (test code = Trace A 30206-8) KETONES; Normal (test code = Negative N 11693-4) GLUCOSE; Normal (test code = 1547-9) Negative N [facility]
--- NOTE | 2021-12-16 12:43 | EDPHYS ---
Physician Documentation [facility] Name: Jenn Horan Age: 36 yrs Sex: Female : 1985 Arrival Date: 12/16/2021 Time: 12:20 Bed IW5 Private MD: out of town, doctor ED Physician Yonny Dooley HPI: 12/16 12:37 This 36 yrs old Female presents to ER via Wheelchair with complaints of Sore jl9 Throat, Ear Pain. Patient reports getting over a cold 1 week ago. . 12:37 The patient presents with sore throat. The patient describes throat pain as scratchy. jl9 Onset: The symptoms/episode began/occurred 2 day(s) ago. Severity of symptoms: in the emergency department the symptoms a " 3" out of "10". Modifying factors: The symptoms are alleviated by the symptoms are aggravated by fluids, foods. Associated signs and symptoms: Pertinent positives: earache, Sore throat. [employer]PER[employer]OR: 12:30 LMP N/A - Hysterectomy bm7 Historical: - Allergies: 12:30 Biaxin; bm7 12:30 Cefaclor; bm7 12:30 Demerol; bm7 12:30 hydromorphone HCl; bm7 12:30 Morphine; bm7 12:30 NSAIDS (Non-Steroidal Anti-Inflammatory Drug); bm7 12:30 PENICILLINS; bm7 - Home Meds: 12:30 Abilify 15 mg Oral tab once daily [Active]; Corlanor 7.5 mg Oral tab 1 tab 2 times per bm7 day [Active]; fluoxetine 20 mg Oral tab 1 tab once daily [Active]; Meclizine Oral [Active]; Plavix 75 mg Oral tab once daily [Active]; - PMHx: 12:30 Asthma; Cerebral Palsy; Erythromelalgia; GERD; Hearing Loss; Incomplete R BBB; POTS bm7 "when having an infection"; reactive airway; - PSHx: 12:30 Appendectomy; hysterectomy; Cholecystectomy; Tonsillectomy; bm7 - Immunization history:: Adult Immunizations up to date, Client reports having NOT received the Covid vaccine. - Social history:: Smoking status: Patient denies any tobacco usage or history of. ROS: 12:39 Constitutional: Negative for fever, chills, and weight loss. jl9 12:39 Eyes: Negative for injury, pain, redness, and discharge. 12:39 Neck: Negative for injury, pain, and swelling, Cardiovascular: Negative for chest pain, palpitations, and edema, Respiratory: Negative for shortness of breath, cough, wheezing, and pleuritic chest pain, Abdomen/GI: Negative for abdominal pain, nausea, vomiting, diarrhea, and constipation, Back: Negative for injury and pain, : Negative for injury, bleeding, discharge, and swelling, MS/Extremity: Negative for injury and deformity, Skin: Negative for injury, rash, and discoloration, Neuro: Negative for headache, weakness, numbness, tingling, and seizure, Psych: Negative for depression, anxiety, suicide ideation, homicidal ideation, and hallucinations, Allergy/Immunology: Negative for hives, rash, and allergies, Endocrine: Negative for neck swelling, polydipsia, polyuria, polyphagia, and marked weight changes, Hematologic/Lymphatic: Negative for swollen nodes, abnormal bleeding, and unusual bruising. 12:39 Eyes: Positive for 12:39 Eyes: 12:39 ENT: Positive for ear pain, sore throat. Exam: 12:40 Constitutional: This is a well developed, well nourished patient who is awake, alert, jl9 and in no acute distress. Head/Face: Normocephalic, atraumatic. Eyes: Pupils equal round and reactive to light, extra-ocular motions intact. Lids and lashes normal. Conjunctiva and sclera are non-icteric and not injected. Cornea within normal limits. Periorbital areas with no swelling, redness, or edema. 12:40 Neck: Trachea midline, no thyromegaly or masses palpated, and no cervical lymphadenopathy. Supple, full range of motion without nuchal rigidity, or vertebral point tenderness. No Meningismus. Chest/axilla: Normal chest wall appearance and motion. Nontender with no deformity. No lesions are appreciated. Cardiovascular: Regular rate and rhythm with a normal S1 and S2. No gallops, murmurs, or rubs. Normal PMI, no JVD. No pulse deficits. Respiratory: Lungs have equal breath sounds bilaterally, clear to auscultation and percussion. No rales, rhonchi or wheezes noted. No increased work of breathing, no retractions or nasal flaring. Abdomen/GI: Soft, non-tender, with normal bowel sounds. No distension or tympany. No guarding or rebound. No evidence of tenderness throughout. Back: No spinal tenderness. No costovertebral tenderness. Full range of motion. Skin: Warm, dry with normal turgor. Normal color with no rashes, no lesions, and no evidence of cellulitis. MS/ Extremity: Pulses equal, no cyanosis. Neurovascular intact. Full, normal range of motion. Neuro: Awake and alert, GCS 15, oriented to person, place, time, and situation. Cranial nerves II-XII grossly intact. Motor strength 5/5 in all extremities. Sensory grossly intact. Cerebellar exam normal. Normal gait. Psych: Awake, alert, with orientation to person, place and time. Behavior, mood, and affect are within normal limits. 12:40 ENT: External ear(s): are unremarkable, Ear canal(s): are normal, TM's: erythema, that is moderate, bilaterally, Posterior pharynx: erythema, that is moderate, exudate, that is moderate. Vital Signs: 12:27 Pulse 66; Resp 16; Temp 98.8(TE); Pulse Ox 100% on R/A; Weight 89.81 kg (R); Height 5 bm7 ft. 8 in. (172.72 cm); Pain 6/10; 12:27 Body Mass Index 30.11 (89.81 kg, 172.72 cm) bm7 MDM: 12:42 Data reviewed: vital signs, nurses notes. Counseling: I had a detailed discussion with jl9 the patient and/or guardian regarding: the historical points, exam findings, and any diagnostic results supporting the discharge/admit diagnosis, the need for outpatient follow up, to return to the emergency department if symptoms worsen or persist or if there are any questions or concerns that arise at home. 12:43 Patient medically screened. jl9 Administered Medications: No medications were administered Disposition: 16:32 Co-signature as Attending Physician, Yonny Dooley MD. rn Disposition Summary: 12/16/21 12:43 Discharge Ordered Location: Home [facility] Condition: Stable jl9 Diagnosis - Streptococcal pharyngitis jl9 - Acute serous otitis media, bilateral jl9 Followup: jl9 - With: Private Physician - When: 1 - 2 days - Reason: Recheck today's complaints, Continuance of care, Re-evaluation by your physician Discharge Instructions: - Discharge Summary Sheet jl9 - Otitis Media, Adult jl9 - Strep Throat, Adult, Tupb-hw-Mxyy jl9 Forms: - Medication Reconciliation Form jl9 - Thank You Letter jl9 - Antibiotic Education jl9 - Prescription Opioid Use jl9 Prescriptions: - azithromycin 250 mg Oral tablet - take 2 tablet by ORAL route once daily for 1 day then 1 tablet (250 mg) by oral jl9 route once daily for 4 days; 6 tablet; Refills: 0, Product Selection Permitted Signatures: Yonny Dooley MD MD rn McCarthy, Brittany, RN RN bm7 Linares, John jl9 Corrections: (The following items were deleted from the chart) 12:31 12:30 PSHx: lung; bm7 bm7
--- NOTE | 2021-12-16 12:43 | ER ---
Nurse's Notes [facility] Name: Jenn Horan Age: 36 yrs Sex: Female : 1985 Arrival Date: 12/16/2021 Time: 12:20 Bed IW5 Private MD: out of town, doctor Diagnosis: Streptococcal pharyngitis;Acute serous otitis media, bilateral Presentation: 12/16 12:27 Chief complaint: Parent and/or Guardian states: She just go over a cold a week ago and bm7 a week ago her right ear started hurting. Now her throat is hurting and I think she might have pus pockets in there. She is in severe pain and it even brought her to tears. Coronavirus screen: Client presents with at least one sign or symptom that may indicate coronavirus-19. Ebola Screen: No symptoms or risks identified at this time. Initial Sepsis Screen: Does the patient meet any 2 criteria? No. Patient's initial sepsis screen is negative. Does the patient have a suspected source of infection? No. Patient's initial sepsis screen is negative. Risk Assessment: Do you want to hurt yourself or someone else? Patient reports no desire to harm self or others. Onset of symptoms is unknown. 12:27 Method Of Arrival: Wheelchair bm7 12:27 Acuity: SVETLANA 4 bm7 Triage Assessment: 12:30 General: Appears in no apparent distress. Behavior is calm, cooperative. Pain: bm7 Complains of pain in throat. EENT: Oral mucosa is moist. Throat is reddened Reports pain in throat. Neuro: No deficits noted. Cardiovascular: No deficits noted. Respiratory: Airway is patent Respiratory effort is even, unlabored, Respiratory pattern is regular, symmetrical, Breath sounds are clear bilaterally. Parent/caregiver reports the patient having cough that is non-productive, dry. GI: No deficits noted. No signs and/or symptoms were reported involving the gastrointestinal system. : No deficits noted. No signs and/or symptoms were reported regarding the genitourinary system. Derm: No deficits noted. No signs and/or symptoms reported regarding the dermatologic system. Musculoskeletal: No deficits noted. No signs and/or symptoms reported regarding the musculoskeletal system. 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 LMP N/A - Hysterectomy bm7 Historical: - Allergies: 12:30 Biaxin; bm7 12:30 Cefaclor; bm7 12:30 Demerol; bm7 12:30 hydromorphone HCl; bm7 12:30 Morphine; bm7 12:30 NSAIDS (Non-Steroidal Anti-Inflammatory Drug); bm7 12:30 PENICILLINS; bm7 - Home Meds: 12:30 Abilify 15 mg Oral tab once daily [Active]; Corlanor 7.5 mg Oral tab 1 tab 2 times per bm7 day [Active]; fluoxetine 20 mg Oral tab 1 tab once daily [Active]; Meclizine Oral [Active]; Plavix 75 mg Oral tab once daily [Active]; - PMHx: 12:30 Asthma; Cerebral Palsy; Erythromelalgia; GERD; Hearing Loss; Incomplete R BBB; POTS bm7 "when having an infection"; reactive airway; - PSHx: 12:30 Appendectomy; hysterectomy; Cholecystectomy; Tonsillectomy; bm7 - Immunization history:: Adult Immunizations up to date, Client reports having NOT received the Covid vaccine. - Social history:: Smoking status: Patient denies any tobacco usage or history of. Screenin:11 Abuse screen: Denies threats or abuse. Denies injuries from another. Nutritional eh3 screening: No deficits noted. Tuberculosis screening: No symptoms or risk factors identified. Fall Risk None identified. Assessment: 13:11 General: Appears in no apparent distress. Behavior is calm, cooperative, appropriate eh3 for age. Neuro: Level of Consciousness is awake, alert, obeys commands. Cardiovascular: Capillary refill < 3 seconds Patient's skin is warm and dry. Respiratory: Airway is patent Respiratory effort is even, unlabored. Vital Signs: 12:27 Pulse 66; Resp 16; Temp 98.8(TE); Pulse Ox 100% on R/A; Weight 89.81 kg (R); Height 5 bm7 ft. 8 in. (172.72 cm); Pain 6/10; 12:27 Body Mass Index 30.11 (89.81 kg, 172.72 cm) bm7 ED Course: 12:20 Patient arrived in ED. mr 12:20 out of town, doctor is Private Physician. mr 12:30 Triage completed. bm7 12:30 Arm band placed on left wrist. bm7 12:37 Sebastian Ospina is PHCP. jl9 12:37 Yonny Dooley MD is Attending Physician. jl9 12:43 Mary Alex, RN is Primary Nurse. iw 13:11 Patient has correct armband on for positive identification. eh3 13:11 No provider procedures requiring assistance completed. Patient did not have IV access eh3 during this emergency room visit. Administered Medications: No medications were administered Medication: 13:11 VIS not applicable for this client. eh3 Outcome: 12:43 Discharge ordered by MD. jl9 13:11 Discharged to home ambulatory, with family. eh3 13:11 Condition: stable 13:11 Discharge instructions given to patient, family, Instructed on discharge instructions, follow up and referral plans. medication usage, Demonstrated understanding of instructions, follow-up care, medications, Prescriptions given X 1. 13:12 Patient left the ED. eh3 Signatures: China Alonso mr Mary Alex, RN RN Geovanna Craven, RN RN 7 Radha Ghosh RN RN 3 Sebastian Ospina 9 Corrections: (The following items were deleted from the chart) 12:31 12:30 PSHx: lung; bm7 bm7
[2021-12-17 23:55] VITALS: TEMP 98.8; O2SAT 100
== END 2021-12-16 13:12 | disposition home or self-care (01) ==
LOC: ER 12:17
DX: J02.0 Streptococcal pharyngitis (principal); H65.03 Acute serous otitis media, bilateral; Z79.01 Long term (current) use of anticoagulants; Z88.0 Allergy status to penicillin; Z88.1 Allergy status to other antibiotic agents; Z88.5 Allergy status to narcotic agent; Z88.6 Allergy status to analgesic agent; Z88.8 Allergy status to other drugs, medicaments and biological substances
CPT/HCPCS: 99281

== ENCOUNTER 2022-03-06 17:50 | Emergency (ER) | payer OTHER ==
--- OUTSIDE RECORDS SUMMARY | 2022-03-06 18:01 | XMS REPORT | Continuity of Care Document ---
:1985 Author Organization [facility] t Address [address] [place] [address] Care Team Providers Name Role Phone NO, PCP Primary Care Physician Unavailable MK NUNEZ Attending Clinician Unavailable JAI SAMUEL Attending Clinician Unavailable MARK CLEMONS Attending Clinician Unavailable NATHALIA CEDENO Attending Clinician Unavailable BLADIMIR CORBETT Attending Clinician Unavailable JOSELO VARGAS Attending Clinician Unavailable BRYON CHERY Attending Clinician Unavailable Ingrid Lares RN Attending Clinician Unavailable ARGENIS TERRELL Attending Clinician Unavailable GABRIEL BRAY Attending Clinician Unavailable SEB LEBLANC Attending Clinician Unavailable Pancho Yu RN Attending Clinician Unavailable Kendra Gibbons RN Attending Clinician Unavailable DAVID SANCHEZ Attending Clinician Unavailable Ericka Coley RN Attending Clinician Unavailable Clarissa Montesinos Attending Clinician Unavailable Jones Pool RN Attending Clinician Unavailable Hilda MARX, Amy Attending Clinician Rosio Segundo MD Attending Clinician Bernie Yepez MA Attending Clinician Unavailable Fozia Sidhu MD Attending Clinician Jase PARKER, Neva Attending Clinician Unavailable MARK CLEMONS NP Attending Clinician Unavailable JOSELO VARGAS M.D. Attending Clinician Unavailable FOZIA SIDHU M.D. Attending Clinician Unavailable SLICK DUNAWAY [...] Unavailable MED PROVIDER, TCM Attending Clinician Unavailable NATHALIA CEDENO M.D. Attending Clinician Unavailable HOLTER, NON-INVASIVE Attending Clinician Unavailable JORDI WONG M.D. Attending Clinician Unavailable KARINE SCHMIDT M.D. Attending Clinician Unavailable HIRAL ROBERSON P.A. Attending Clinician Unavailable BLANCA SCHMIDT M.D. Attending Clinician Unavailable RAGHAVENDRA JOHNSON M.D. Attending Clinician Unavailable ELIZABETH BALDWIN M.D. Attending Clinician Unavailable Titus Tao M.D. Attending Clinician Unavailable GABRIELLA LOMBARDO M.D. Attending Clinician Unavailable NASEEM NESBITT M.D. Attending Clinician Unavailable DAVID SANCHEZ Admitting Clinician Unavailable Physician, No Primary or Family Admitting Clinician UnavailCODEY Shaffer Admitting Clinician Unavailable Payers Payer Name Policy Type Policy Number Effective Date Expiration Date Mino renae [employer] [id number] 2011 2017 00:00:00 00:00:00 [employer] Star [id number] 2017 [facility] 00:00:00 Patient Medical Center Problems Condition Condition Condition Status Onset Resolution Last Treating Co mments Source Name Details Category Date Date Treatment Clinician Date Acute pain Acute pain Disease Active 2021-03 [facility] of right of right 0-18 Health shoulder shoulder 00:00: 00 Adhesive Adhesive Disease Active 2021-03 Last [facility] capsulitis capsulitis 0-18 Assessmen Health of right of right 00:00: t & Plan: shoulder shoulder 00 Formattin g of this note might be different from the original. Reassured patient today, recommend ed trial of physical therapy and home health, follow-up in 6 weeks, she does have a history of cerebral palsy. Ann Mendiola MD, Family Medicine PGY 3 resident accompani ed me with the consultat ion of this patient visit. May consider possible CSI injection in the future. Consider MRI right shoulder if there is no improveme nt. 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) Allergies, Adverse Reactions, Alerts Allergy Allergy Status Severity Reaction(s) Onset Inactive Treating Comm ents Source Name Type Date Date Clinician NSAIDS Allergy Active [facility]27 [facility] roidal [facility]anc 00:00: Patient Anti-Inf e Medical [facility] Penicill Allergy Active [facility] 08[facility] Morphine Allergy Active [facility] Cefaclor Allergy Active [facility] Clarithr Allergy Active [facility] omycin [facility] 08[facility] Meperidi Allergy Active [facility] ne [facility] 08[facility] Hydromor Allergy Active [facility] phone [facility] 08-27 [facility] Penicill DA Active MO RASH [facility] ins 08[facility]24 [facility] morphine DA Active [facility] ITCHY 2021-0 [facility] 08-24 [facility] 00:[facility] hydromor DA Active [facility] RASH 2021-0 [facility] phone 08-24 [facility] 00:[facility]: [facility]anes[facility] NSAIDS DA Active [facility] RASH 0 [facility] (Non-Raf[facility] 08-[address] [facility] roida 00:00: Vanesa Anti-Inf 00 [facility] Penicill Propensi Active 2020-0 UT ins ty to 8-25 Health adverse 00:00: reaction 00 s Cefaclor Allergy Active 2020-0 UT to 5-28 Health substanc 00:00: e 00 Hydromor Allergy Active 2020-0 UT phone to 08-20 Health substanc 00:00: e 00 Meperidi Allergy Active 2020-0 UT ne to - Health substanc 00:00: e 00 Metoclop Allergy Active 2020-0 UT ramide to 5- Health substanc 00:00: e 00 Morphine Allergy Active 2020-0 UT to -28 Health substanc 00:00: e 00 Nsaids Allergy Active 2020-0 UT to 5-28 Health substanc 00:00: e 00 NSAIDS DA Active [facility] (Non-[facility] Patient Anti-Inf [facility] Penicill DA Active [facility] ins [facility] morphine DA [facility] cefaclor DA Active [facility] clarithr DA Active [facility] omycin [facility] meperidi DA Active [facility] ne [facility] hydromor DA Active [facility] phone [facility] Biaxin Allergy Active UT TABS to [...] Date Stop Date Quantity Comments Source History [facility] Alcohol Comment Exposure to 2022-02-18 2022-02-28 Not sure [facility] SARS-CoV-2 (event) 00:00:00 10:41:00 Alcohol intake 2022-02-28 2022-02-28 Lifetime [facility] 00:00:00 00:00:00 non-drinker (finding) History SDSC 2021-11-04 2021-11-04 1 [facility] Alcohol Frequency 00:00:00 00:00:00 History SDOH 2021-11-04 2021-11-04 0 [facility] Alcohol Std Drinks 00:00:00 00:00:00 History SDOH 2021-11-04 2021-11-04 1 [facility] Alcohol Binge 00:00:00 00:00:00 History SDSC Food 2021-11-04 2021-11-04 1 [facility] Worry 00:00:00 00:00:00 History SDOH Food 2021-11-04 2021-11-04 1 [facility] Scarcity 00:00:00 00:00:00 Tobacco use and 2021-01-20 2021-01-20 Smokeless tobacco [facility] exposure 00:00:00 00:00:00 non-user Cigarette 2021-01-20 2021-01-20 [facility] pack-years 00:00:00 00:00:00 Sex [birth year] Female [facility] 00:00:00 00:00:00 [facility] Smoking Status Start Date Stop Date Source Never smoked tobacco [facility] Medications Ordered Filled Start Stop Current Ordering Indication Dosage Frequency Signature Comments Components Source Medication Medication Date Date Medication? Clinician (SIG) Name Name ARIPiprazol 2021-03- Yes [id number] 20mg Take 1 UT e (Abilify) 04-23 tablet (20 H ealth 20 MG 00:00: 05:59 mg total) tablet 00 :00 by mouth every night. ARIPiprazol 2021-03- Yes [id number] 5mg Take 1 UT e (Abilify) 04-23- tablet (5 He alth 5 MG tablet 00:00: 05:59 mg total) 00 :00 by mouth 1 (one) time each day in the morning. FLUoxetine 2021-03- Yes [id number] 20mg QD Take 1 UT (PROzac) 20 04-23 capsule Heal th MG capsule 00:00: 05:59 (20 mg 00 :00 total) by mouth 1 (one) time each day. LORazepam 2021-03- Yes [id number] .25mg Take 0.5 UT (Ativan) 04-23 12-30 tablets Health 0.5 MG 00:00: 05:59 (0.25 mg tablet 00 :00 total) by mouth 1 (one) time each day if needed (severe anxiety). May repeat once in 30 minutes if ineffectiv e. furosemide 2021-03 Yes [id number] 20mg QD Take 1 UT (Lasix) 20 0-11 tablet (20 Hea lth MG tablet 00:00: mg total) 00 by mouth 1 (one) time each day. furosemide 2021-03 Yes [id number] 20mg QD Take 1 UT (Lasix) 20 0-11 tablet (20 Hea lth MG tablet 00:00: mg total) 00 by mouth 1 (one) time each day. furosemide 2021-03 Yes [id number] 20mg QD Take 1 UT (Lasix) 20 0-11 tablet (20 Hea lth MG tablet 00:00: mg total) 00 by mouth 1 (one) time each day. ofloxacin 2021- Yes [id number] 4[drp] Q.5D Administer UT (Floxin) 12-2308 4 drops Health 0.3 % otic 00:00: 04:59 into each solution 00 :00 ear in the morning and 4 drops in the evening. Do all this for 7 days. Ivabradine Yes [id number] Take 5 mg UT HCl - by mouth 2 Health (Corlanor) 00:00: (two) 5 MG tablet 00 times a day AND 2.5 mg 2 (two) times a day. Ivabradine Yes [id number] Take 5 mg UT HCl 9-29 by mouth 2 [facility] ([facility]) 00:00: (two) 5 MG tablet 00 times a day AND 2.5 mg 2 (two) times a day. Ivabradine Yes [id number] Take 5 mg UT HCl 9-29 by mouth 2 [facility] ([facility]) 00:00: (two) 5 MG tablet 00 times a day AND 2.5 mg 2 (two) times a day. Ivabradine 0 Yes [id number] Take 5 mg UT HCl 9-29 by mouth 2 [facility] ([facility]) 00:00: (two) 5 MG tablet 00 times a day AND 2.5 mg 2 (two) times a day. diphenhydrA Yes QD Take by [facility] MINE 9-27 mouth at [facility] ([facility]) 13:06: night if 25 MG 31 needed for tablet itching. diphenhydrA Yes QD Take by [facility] 9-27 [facility] 13:06: night if 25 MG 31 needed for tablet itching. diphenhydrA 0 Yes QD Take by [facility] mouth at [facility] ([facility]) 13:06: night if 25 MG 31 needed for tablet itching. diphenhydrA 0 Yes QD Take by [facility] 9-27 mouth at [facility] ([facility]NAD[facility]) 13:06: night if 25 MG 31 needed for tablet itching. FLUoxetine 2021- Yes [id number] 20mg QD Take 1 UT (PROzac) 20 12-20- capsule Heal th MG capsule 00:00: 05:59 (20 mg 00 :00 total) by mouth 1 (one) time each day. ARIPiprazol 2021- Yes [id number] 20mg Take 1 UT e (Abilify) 12-20- tablet (20 H ealth 20 MG 00:00: 05:59 mg total) tablet 00 :00 by mouth every night. ARIPiprazol 2021- Yes [id number] 5mg Take 1 UT e (Abilify) 12-20- tablet (5 He alth 5 MG tablet 00:00: 05:59 mg total) 00 :00 by mouth 1 (one) time each day in the morning. FLUoxetine 2021- Yes [id number] 20mg QD Take 1 UT (PROzac) 20 12-20 capsule Heal th MG capsule 00:00: 05:59 (20 mg 00 :00 total) by mouth 1 (one) time each day. ARIPiprazol 2021- Yes [id number] 20mg Take 1 UT e (Abilify) 12-20 tablet (20 H ealth 20 MG 00:00: 05:59 mg total) tablet 00 :00 by mouth every night. ARIPiprazol 2021- Yes [id number] 5mg Take 1 UT e (Abilify) 12-20 tablet (5 He alth 5 MG tablet 00:00: 05:59 mg total) 00 :00 by mouth 1 (one) time each day in the morning. FLUoxetine 2021- Yes [id number] 20mg QD Take 1 UT (PROzac) 20 12-20 capsule Heal th MG capsule 00:00: 05:59 (20 mg 00 :00 total) by mouth 1 (one) time each day. ARIPiprazol 2021- Yes [id number] 20mg Take 1 UT e (Abilify) 12-20 tablet (20 H ealth 20 MG 00:00: 05:59 mg total) tablet 00 :00 by mouth every night. ARIPiprazol 2021- Yes [id number] 5mg Take 1 UT e (Abilify) 12-20 tablet (5 He alth 5 MG tablet 00:00: 05:59 mg total) 00 :00 by mouth 1 (one) time each day in the morning. azithromyci Yes TAKE 2 UT n 9-23 TABLETS BY Health (Zithromax) 00:00: MOUTH 250 MG 00 TODAY, tablet THEN TAKE 1 TABLET DAILY FOR 4 DAYS azithromyci 2021-0 Yes TAKE 2 UT n 9-23 TABLETS BY Health (Zithromax) 00:00: MOUTH 250 MG 00 TODAY, tablet THEN TAKE 1 TABLET DAILY FOR 4 DAYS azithromyci 2021- Yes TAKE 2 UT n 9-23 TABLETS BY Health (Zithromax) 00:00: MOUTH 250 MG 00 TODAY, tablet THEN TAKE 1 TABLET DAILY FOR 4 DAYS diphenhydrA 0 Yes QD Take by UT MINE 8 mouth at Health (BENADryl) 11:24: night if 25 MG 00 needed for tablet itching. diphenhydrA 0 Yes QD Take by UT MINE 8-12 mouth at Health (BENADryl) 11:24: night if 25 MG 00 needed for tablet itching. nystatin 2021- No [id number] Q.5D Apply UT (Mycostatin 11-0420 topically He alth ) cream 00:00: 04:59 2 (two) 00 :00 times a day for 7 days. predniSONE 2021- No [id number] 40mg QD Take 2 UT (Deltasone) 11-04 9109 tablets Heal th 20 MG 00:00: 04:59 (40 mg tablet 00 :00 total) by mouth 1 (one) time each day for 5 days. diazePAM Yes [id number] TAKE 1 UT (Valium) 2 7-21 TABLET (2 Heal th MG tablet 00:00: MG TOTAL) 00 BY MOUTH 1 (ONE) TIME EACH DAY IF NEEDED FOR ANXIETY. diazePAM Yes TAKE 1 UT (Valium) 2 7-21 TABLET (2 Heal th MG tablet 00:00: MG TOTAL) 00 BY MOUTH 1 (ONE) TIME EACH DAY IF NEEDED FOR ANXIETY. lurasidone 0 Yes [id number] 20mg QD Take 1 U T (Latuda) 20 7-21 tablet (20 He alth MG tablet 00:00: mg total) 00 by mouth 1 (one) time each day. With food. diazePAM Yes TAKE 1 UT (Valium) 2 7-21 TABLET (2 Heal th MG tablet 00:00: MG TOTAL) 00 BY MOUTH 1 (ONE) TIME EACH DAY IF NEEDED FOR ANXIETY. diazePAM Yes TAKE 1 UT (Valium) 2 7-21 TABLET (2 Heal th MG tablet 00:00: MG TOTAL) 00 BY MOUTH 1 (ONE) TIME EACH DAY IF NEEDED FOR ANXIETY. diazePAM Yes TAKE 1 UT (Valium) 2 7-21 TABLET (2 Heal th MG tablet 00:00: MG TOTAL) 00 BY MOUTH 1 (ONE) TIME EACH DAY IF NEEDED FOR ANXIETY. diazePAM Yes [id number] TAKE 1 UT (Valium) 2 7-21 TABLET (2 Heal th MG tablet 00:00: MG TOTAL) 00 BY MOUTH 1 (ONE) TIME EACH DAY IF NEEDED FOR ANXIETY. ARIPiprazol 2021- No [id number] 20mg QD Take 1 UT e (Abilify) 7-21 10-20 tablet (20 H ealth 20 MG 00:00: 04:59 mg total) tablet 00 :00 by mouth 1 (one) time each day. FLUoxetine 2021- No [id number] 20mg QD Take 1 UT (PROzac) 20 7-21 10-20 capsule Heal th MG capsule 00:00: 04:59 (20 mg 00 :00 total) by mouth 1 (one) time each day. ARIPiprazol 2021- No [id number] 20mg QD Take 1 UT e (Abilify) 7-21 10-20 tablet (20 H ealth 20 MG 00:00: 04:59 mg total) tablet 00 :00 by mouth 1 (one) time each day. FLUoxetine 2021- No [id number] 20mg QD Take 1 UT (PROzac) 20 7-21 10-20 capsule Heal th MG capsule 00:00: 04:59 (20 mg 00 :00 total) by mouth 1 (one) time each day. ARIPiprazol 2021- No [id number] 20mg QD Take 1 UT e (Abilify) 7-21 10-20 tablet (20 H ealth 20 MG 00:00: 04:59 mg total) tablet 00 :00 by mouth 1 (one) time each day. FLUoxetine 2021- No [id number] 20mg QD Take 1 UT (PROzac) 20 7-21 10-20 capsule Heal th MG capsule 00:00: 04:59 (20 mg 00 :00 total) by mouth 1 (one) time each day. ARIPiprazol 2021- No [id number] 5mg QD Take 1 UT e (Abilify) 7-21 08-21 tablet (5 He alth 5 MG tablet 00:00: 04:59 mg total) 00 :00 by mouth 1 (one) time each day. (Take with Aripiprazo le 20 mg to total aripripraz ole 25 mg daily). lurasidone 2021-0 2021- No [id number] 20mg QD Take 1 UT (Latuda) 20 7- 08-21 tablet (20 H ealth MG tablet 00:00: 04:59 mg total) 00 :00 by mouth 1 (one) time each day. With food. ARIPiprazol 2021-2021- No [id number] 5mg QD Take 1 UT e (Abilify) 7-13 11-21 tablet (5 He alth 5 MG tablet 00:00: 04:59 mg total) 00 :00 by mouth 1 (one) time each day. (Take with Aripiprazo le 20 mg to total aripripraz ole 25 mg daily). lurasidone 2021-0 2021- No [id number] 20mg QD Take 1 UT (Latuda) 20 7-13 11-21 tablet (20 H ealth MG tablet 00:00: 04:59 mg total) 00 :00 by mouth 1 (one) time each day. With food. Ivabradine 2021- No [id number] Take 2.5 UT HCl 6-15 08-13 [facility] 00:00: 04:59 mouth 2 5 MG tablet 00 :00 (two) times a day for 14 days, THEN 5 mg 2 (two) times a day for 14 days, THEN 7.5 mg 2 (two) times a day. Ivabradine 2021- No [id number] Take 2.5 UT HCl 6-15 08-13 [facility] 00:00: 04:59 mouth 2 5 MG tablet 00 :00 (two) times a day for 14 days, THEN 5 mg 2 (two) times a day for 14 days, THEN 7.5 mg 2 (two) times a day. albuterol Yes [id number] 2.5mg Q6H Take 3 mL UT (2.5 6-14 (2.5 mg Health MG/3ML) 00:00: total) by 0.083% 00 nebulizati nebulizer on every 6 solution (six) hours if needed for wheezing or shortness of breath. ipratropium 2022-0 Yes [id number] .5mg Take 2.5 UT (Atrovent) 6-14 mL (0.5 mg Hea lth 0.02 % 00:00: total) by nebulizer 00 nebulizati solution on 4 (four) times a day if needed for wheezing or shortness of breath. albuterol 2022-0 Yes [id number] 2.5mg Q6H Take 3 mL UT (2.5 6-14 (2.5 mg Health MG/3ML) 00:00: total) by 0.083% 00 nebulizati nebulizer on every 6 solution (six) hours if needed for wheezing or shortness of breath. ipratropium 2-0 Yes [id number] .5mg Take 2.5 UT (Atrovent) 6-14 mL (0.5 mg Hea lth 0.02 % 00:00: total) by nebulizer 00 nebulizati solution on 4 (four) times a day if needed for wheezing or shortness of breath. albuterol 2-0 Yes [id number] 2.5mg Q6H Take 3 mL UT (2.5 6-14 (2.5 mg Health MG/3ML) 00:00: total) by 0.083% 00 nebulizati nebulizer on every 6 solution (six) hours if needed for wheezing or shortness of breath. ipratropium 2-0 Yes [id number] .5mg Take 2.5 UT (Atrovent) 6-14 mL (0.5 mg Hea lth 0.02 % 00:00: total) by nebulizer 00 nebulizati solution on 4 (four) times a day if needed for wheezing or shortness of breath. albuterol 2022-0 Yes [id number] 2.5mg Q6H Take 3 mL UT (2.5 6-14 (2.5 mg Health MG/3ML) 00:00: total) by 0.083% 00 nebulizati nebulizer on every 6 solution (six) hours if needed for wheezing or shortness of breath. ipratropium 2022-0 Yes [id number] .5mg Take 2.5 UT (Atrovent) 6-14 mL (0.5 mg Hea lth 0.02 % 00:00: total) by nebulizer 00 nebulizati solution on 4 (four) times a day if needed for wheezing or shortness of breath. albuterol 2-0 Yes [id number] 2.5mg Q6H Take 3 mL UT (2.5 6-14 (2.5 mg Health MG/3ML) 00:00: total) by 0.083% 00 nebulizati nebulizer on every 6 solution (six) hours if needed for wheezing or shortness of breath. ipratropium 2022-0 Yes [id number] .5mg Take 2.5 UT (Atrovent) 6-14 mL (0.5 mg Hea lth 0.02 % 00:00: total) by nebulizer 00 nebulizati solution on 4 (four) times a day if needed for wheezing or shortness of breath. albuterol 2021-0 Yes [id number] 2.5mg Q6H Take 3 mL UT (2.5 6-14 (2.5 mg Health MG/3ML) 00:00: total) by 0.083% 00 nebulizati nebulizer on every 6 solution (six) hours if needed for wheezing or shortness of breath. ipratropium 2-0 Yes [id number] .5mg Take 2.5 UT (Atrovent) 6-14 mL (0.5 mg Hea lth 0.02 % 00:00: total) by nebulizer 00 nebulizati solution on 4 (four) times a day if needed for wheezing or shortness of breath. albuterol 2-0 Yes [id number] 2.5mg Q6H Take 3 mL UT (2.5 6-14 (2.5 mg Health MG/3ML) 00:00: total) by 0.083% 00 nebulizati nebulizer on every 6 solution (six) hours if needed for wheezing or shortness of breath. ipratropium 2022-0 Yes [id number] .5mg Take 2.5 UT (Atrovent) 6-14 mL (0.5 mg Hea lth 0.02 % 00:00: total) by nebulizer 00 nebulizati solution on 4 (four) times a day if needed for wheezing or shortness of breath. albuterol Yes [id number] 2.5mg Q6H Take 3 mL UT (2.5 6-14 (2.5 mg Health MG/3ML) 00:00: total) by 0.083% 00 nebulizati nebulizer on every 6 solution (six) hours if needed for wheezing or shortness of breath. ipratropium Yes [id number] .5mg Take 2.5 UT (Atrovent) 6-14 mL (0.5 mg Hea lth 0.02 % 00:00: total) by nebulizer 00 nebulizati solution on 4 (four) times a day if needed for wheezing or shortness of breath. Ivabradine 2021- No [id number] Take 2.5 UT HCl 6 08-07 [facility]: 04:59 mouth 2 5 MG tablet [...] Hfa) 90 Mcg Hfa) 90 Mcg 00 [facility] HFA.AER.AD HFA.AER.AD Jennifer ter Albuterol/I Albuterol/I Yes 3 Rt Q4h as [facility] pratropium pratropium 6-08 needed for [facility] Nebulize Nebulize 10:26: Shortness [facility] Ascorbic Ascorbic Yes [address] [facility] Acid Acid 6-08 Day [facility] 10:26: [facility] Azithromyci Azithromyci 0 Yes [address] [address] n (Z-Jordan) n (Z-Jordan) 6-08 [facility] 250 Mg 250 Mg 10:26: Patient TABLET TABLET 00 [facility] Center Cholecalcif Cholecalcif 2022-0 Yes [address] nick nick 6-08 [facility] 10:26: Patient 00 [facility] Center Docusate Docusate 0 Yes [address] [facility] Sodium Sodium 6-08 Times A [facility] 10:26: Day Patient 00 [facility] Center Guaifenesin Guaifenesin 0 Yes [address] [facility] (Mucinex) (Mucinex) 6-08 Day [facility] 600 Mg 600 Mg 10:26: Patient TABLET.ER TABLET.ER 00 [facility] Nirmatrelvi Nirmatrelvi Yes 3 [...] 40 Mg SUSP 40 Mg SUSP 00 [facility] Zinc Zinc 0 Yes [address] Sulfate Sulfate 6-08 [facility] 10:26: Patient [address] [facility] Paxlovid Yes 3{tbl} Q12H Take 3 UT 6-08 tablets by Health 00:00: mouth 00 every 12 (twelve) hours. pantoprazol Yes 40mg QD Take 40 mg UT e 6-08 by mouth 1 Health (ProtoNix) 00:00: (one) time 40 MG EC 00 each day. tablet Zinc 0 Yes 1{tbl} QD Take 1 UT Sulfate 220 6-08 tablet by [facility] lth (50 Zn) MG 00:00: mouth 1 tablet 00 (one) time each day. Paxlovid 0 Yes 3{tbl} Q12H Take 3 UT 6-08 tablets by Health 00:00: mouth 00 every 12 (twelve) hours. pantoprazol 0 Yes 40mg QD Take 40 mg UT e 6-08 by mouth 1 Health (ProtoNix) 00:00: (one) time 40 MG EC 00 each day. tablet Zinc 2021-0 Yes 1{tbl} QD Take 1 UT Sulfate 220 6-08 tablet by [facility] (50 Zn) MG 00:00: mouth 1 tablet 00 (one) time each day. pantoprazol 2022-0 Yes Daily UT e 6-08 Health (ProtoNix) 00:00: 40 MG 00 packet zinc 2022-0 Yes Daily UT sulfate 1 6-08 Health MG/ML 00:00: injection 00 Paxlovid 2022-0 Yes 3{tbl} Q12H Take 3 UT 6-08 tablets by Health 00:00: mouth 00 every 12 (twelve) hours. pantoprazol 2022-0 Yes 40mg QD Take 40 mg UT e 6-08 by mouth 1 Health (ProtoNix) 00:00: (one) time 40 MG EC 00 each day. tablet Zinc 2022-0 Yes 1{tbl} QD Take 1 UT Sulfate 220 6-08 tablet by [facility] (50 Zn) MG 00:00: mouth 1 tablet 00 (one) time each day. pantoprazol 2022-0 Yes Daily UT e 6-08 Health (ProtoNix) 00:00: 40 MG 00 packet zinc 2022-0 Yes Daily UT sulfate 1 6-08 Health MG/ML 00:00: injection 00 Paxlovid 2022-0 Yes 3{tbl} Q12H Take 3 UT 6-08 tablets by Health 00:00: mouth 00 every 12 (twelve) hours. pantoprazol 2022-0 Yes 40mg QD Take 40 mg UT e 6-08 by mouth 1 Health (ProtoNix) 00:00: (one) time 40 MG EC 00 each day. tablet Zinc 2022-0 Yes 1{tbl} QD Take 1 UT Sulfate 220 6-08 tablet by [facility] (50 Zn) MG 00:00: mouth 1 tablet 00 (one) time each day. pantoprazol 2022-0 Yes Daily UT e 6-08 Health (ProtoNix) 00:00: 40 MG 00 packet zinc 2022-0 Yes Daily UT sulfate 1 6-08 Health MG/ML 00:00: injection 00 Paxlovid 2022-0 Yes 3{tbl} Q12H Take 3 UT 6-08 tablets by Health 00:00: mouth 00 every 12 (twelve) hours. Zinc 2022-0 Yes 1{tbl} QD Take 1 UT Sulfate 220 6-08 tablet by Hea lth (50 Zn) MG 00:00: mouth 1 tablet 00 (one) time each day. benzonatate Yes TAKE ONE UT (Tessalon) 6-02 (1) Health 200 MG 00:00: CAPSULE(S) capsule 00 BY MOUTH EVERY EIGHT HOURS NEEDED FOR COUGH. benzonatate Yes TAKE ONE UT (Tessalon) 6-02 (1) Health 200 MG 00:00: CAPSULE(S) capsule 00 BY MOUTH EVERY EIGHT HOURS NEEDED FOR COUGH. benzonatate Yes TAKE ONE UT (Tessalon) 6-02 (1) Health 200 MG 00:00: CAPSULE(S) capsule 00 BY MOUTH EVERY EIGHT HOURS NEEDED FOR COUGH. benzonatate Yes TAKE ONE UT (Tessalon) 6-02 (1) Health 200 MG 00:00: CAPSULE(S) capsule 00 BY MOUTH EVERY EIGHT HOURS NEEDED FOR COUGH. diazePAM Yes [id number] TAKE 1 UT (Valium) 2 5-23 TABLET (2 Heal th MG tablet 00:00: MG TOTAL) 00 BY MOUTH 1 (ONE) TIME EACH DAY IF NEEDED FOR ANXIETY. diazePAM Yes [id number] TAKE 1 UT (Valium) 2 5-23 TABLET (2 Heal th MG tablet 00:00: MG TOTAL) 00 BY MOUTH 1 (ONE) TIME EACH DAY IF NEEDED FOR ANXIETY. Ivabradine Yes [id number] 1{tbl} Q.5D Take 1 UT HCl 5-11 tablet by [facility] ([facility]) 00:00: mouth 2 7.5 MG 00 (two) tablet times a day. Ivabradine Yes [id number] 1{tbl} Q.5D Take 1 UT HCl 5-11 tablet by [facility] ([facility]) 00:00: mouth 2 7.5 MG 00 (two) tablet times a day. Ivabradine Yes [id number] 1{tbl} Q.5D Take 1 UT HCl 5-11 tablet by [facility] ([place]) 00:00: mouth 2 7.5 MG 00 (two) tablet times a day. Ivabradine Yes [id number] 1{tbl} Q.5D Take 1 UT HCl 5-11 tablet by [facility] ([place]) 00:00: mouth 2 7.5 MG 00 (two) tablet times a day. Ivabradine 2021-0 Yes [id number] 1{tbl} Q.5D Take 1 UT HCl 5-11 tablet by [facility] ([place]) 00:00: mouth 2 7.5 MG 00 (two) tablet times a day. Ivabradine 2021-0 Yes [id number] 1{tbl} Q.5D Take 1 UT HCl 5-11 tablet by [facility] ([place]) 00:00: mouth 2 7.5 MG 00 (two) tablet times a day. Ivabradine 2021-0 Yes [id number] 1{tbl} Q.5D Take 1 UT HCl 5-11 tablet by [facility] ([place]) 00:00: mouth 2 7.5 MG 00 (two) tablet times a day. Ivabradine 2021-0 Yes [id number] 1{tbl} Q.5D Take 1 UT HCl 5-11 tablet by [facility] ([place]) 00:00: mouth 2 7.5 MG 00 (two) tablet times a day. Ivabradine 2021-0 Yes [id number] 1{tbl} Q.5D Take 1 UT HCl 5-11 tablet by [facility] ([place]) 00:00: mouth 2 7.5 MG 00 (two) tablet times a day. clopidogrel 2021-0 3- No [id number] 75mg QD Take 1 UT (Plavix) 75 5-11 05-12 tablet (75 [facility] tablet 00:00: 04:59 mg total) 00 :00 by mouth 1 (one) time each day. TK 1 T PO D clopidogrel 2021-0 3- No [id number] 75mg QD Take 1 [facility] (Plavix) 75 5-11 05-12 tablet (75 [facility] MG tablet 00:00: 04:59 mg total) 00 :00 by mouth 1 (one) time each day. TK 1 T PO D clopidogrel 2-0 3- No [id number] 75mg QD Take 1 [facility] (Plavix) 75 5-11 05-12 tablet (75 [facility] MG tablet 00:00: 04:59 mg total) 00 :00 by mouth 1 (one) time each day. TK 1 T PO D clopidogrel 2-0 3- No [id number] 75mg QD Take 1 [facility] (Plavix) 75 5-11 05-12 tablet (75 [facility] MG tablet 00:00: 04:59 mg total) 00 :00 by mouth 1 (one) time each day. TK 1 T PO D clopidogrel 2021-0 3- No [id number] 75mg QD Take 1 [facility] (Plavix) 75 5-11 05-12 tablet (75 [facility] MG tablet 00:00: 04:59 mg total) 00 :00 by mouth 1 (one) time each day. TK 1 T PO D clopidogrel 2021-0 2022- No [id number] 75mg QD Take 1 [facility] (Plavix) 75 5-11 05-12 tablet (75 [facility] MG tablet 00:00: 04:59 mg total) 00 :00 by mouth 1 (one) time each day. TK 1 T PO D clopidogrel 2021-2022- No [id number] 75mg QD Take 1 UT (Plavix) 75 5-11 05-12 tablet (75 [facility] MG tablet 00:00: 04:59 mg total) 00 :00 by mouth 1 (one) time each day. TK 1 T PO D clopidogrel 2021-2022- No [id number] 75mg QD Take 1 UT (Plavix) 75 5-11 05-12 tablet (75 [facility] MG tablet 00:00: 04:59 mg total) 00 :00 by mouth 1 (one) time each day. TK 1 T PO D clopidogrel 2021-0 2022- No [id number] 75mg QD Take 1 UT (Plavix) 75 5-11 05-12 tablet (75 [facility] MG tablet 00:00: 04:59 mg total) 00 :00 by mouth 1 (one) time each day. TK 1 T PO D ARIPiprazol 2021-0 2- No [id number] 5mg QD Take 1 UT e (Abilify) 07-21- tablet (5 He alth 5 MG tablet 00:00: 04:59 mg total) 00 :00 by mouth 1 (one) time each day. (Take with Aripiprazo le 20 mg to total aripripraz ole 25 mg daily). ARIPiprazol 2021-0 2- No [id number] 5mg QD Take 1 UT e (Abilify) -10-20 tablet (5 [facility] alth 5 MG tablet 00:00: 04:59 mg total) 00 :00 by mouth 1 (one) time each day. Take with aripiprazo le 20 mg to total 25 mg daily. FLUoxetine 2021- No [id number] 20mg QD Take 1 UT (PROzac) 20 07-21 capsule [facility] MG capsule 00:00: 04:59 (20 mg 00 :00 total) by mouth 1 (one) time each day. ARIPiprazol 2021- No [id number] 5mg QD Take 1 UT e (Abilify) 07-21 tablet (5 [facility] alth 5 MG tablet 00:00: 04:59 mg total) 00 :00 by mouth 1 (one) time each day. (Take with Aripiprazo le 20 mg to total aripripraz ole 25 mg daily). ARIPiprazol 2021- No [id number] 5mg QD Take 1 UT e (Abilify) 07-21 tablet (5 He alth 5 MG tablet 00:00: 04:59 mg total) 00 :00 by mouth 1 (one) time each day. Take with aripiprazo le 20 mg to total 25 mg daily. FLUoxetine 2021- No [id number] 20mg QD Take 1 UT (PROzac) 20 07-21 capsule [facility] MG capsule 00:00: 04:59 (20 mg 00 :00 total) by mouth 1 (one) time each day. ARIPiprazol 2021- No [id number] 20mg QD Take 1 UT e (Abilify) 07-20- tablet (20 [facility]alth 20 MG 00:00: 04:59 mg total) tablet 00 :00 by mouth 1 (one) time each day. ARIPiprazol 2021- No [id number] 20mg QD Take 1 UT e (Abilify) 07-20- tablet (20 [facility]alth 20 MG 00:00: 04:59 mg total) tablet 00 :00 by mouth 1 (one) time each day. diphenhydrA Yes QD Take by UT MINE 3-01 mouth at [facility] ([facility]) 09:43: night if 25 MG 28 needed for tablet itching. diphenhydrA 0 Yes QD Take by [facility] 3-[facility] mouth at [facility] ([facility]) 09:43: night if 25 MG 28 needed for tablet itching. diphenhydrA 0 Yes QD Take by [facility]INE 3-01 mouth at [facility] ([facility]) 09:43: night if 25 MG 28 needed for tablet itching. albuterol Yes [id number] 2.5mg Take 3 mL UT (2.5 8-23 (2.5 mg Health MG/3ML) 00:00: total) by 0.083% 00 nebulizati nebulizer on every 4 solution (four) hours if needed for wheezing or shortness of breath. albuterol 2021- No [id number] 2.5mg Take 3 mL UT (2.5 8-23 [...] NIGHT AT BEDTIME NEEDED Azithromyci Azithromyci Yes FOZIA TAKE 2 UT n 250 MG n 250 MG 3-15 [facility] TABLETS ON [facility] Oral Tablet Oral Tablet 00:00: M.D. DAY 1 THEN ans 00 TAKE 1 TABLET A DAY FOR 4 DAYS. Omeprazole Omeprazole 0 Yes FOZIA Q0.5D TAKE 1 UT 40 MG Oral 40 MG Oral 1-20 [facility] CAPSULE [facility] Capsule Capsule 00:00: M.D. TWICE ans Delayed Delayed 00 DAILY Release Release 30-60 minutes before a protein-co ntaining meal Fluticasone Fluticasone 2019-0 Yes FOZIA QD USE 2 UT Propionate Propionate 4-03 [facility] SPRAYS IN [facility] 50 MCG/ACT 50 MCG/ACT 00:00: M.D. EACH a ns Nasal Nasal 00 NOSTRIL Suspension Suspension ONCE DAILY [place] Yes FOZIA 1 and half UT 7.5 MG Oral 7.5 MG Oral 4-03 [facility] tablet PO [facility] Tablet Tablet 00:00: M.D. BID ans 00 Nystatin-Tr Nystatin-Tr 2018-03 Yes GAZALA Q0.5D APPLY UT iamcinolone iamcinolone 0-08 [facility] [id number] 00:00: M.D. TO a ns UNIT/GM-% UNIT/GM-% [...] TAB AT BEDTIME NEEDED Albuterol Albuterol Yes FOZIA USE 1 VIAL UT Sulfate Sulfate 8-14 [facility] VIA [facility] ci (2.5 (2.5 00:00: M.D. NEBULIZER ans MG/3ML) MG/3ML) 00 EVERY 4 0.083% 0.083% HOURS Inhalation Inhalation NEEDED Nebulizatio Nebulizatio n Solution n Solution Clopidogrel Clopidogrel Yes FOZIA QD TAKE 1 UT Bisulfate Bisulfate 6-28 [...] [address] [facility] [address] [facility] Ivabradine Ivabradine Yes 7.[address] [facility] ([facility] Pat ient 7.5 Mg 7.5 [...] Time Observation Value Comments Source Systolic blood 2021-12-23 98 mm[Hg] [facility] pressure 13:16:00 Diastolic blood 2021-12-23 68 mm[Hg] [facility] pressure 13:16:00 Body temperature 2021-12-23 36.11 [facility] 13:16:00 Respiratory rate 2021-12-23 16 /min [facility] 13:16:00 Systolic blood 2021-11-04 104 mm[Hg] [facility] pressure 16:25:00 Diastolic blood 2021-11-04 71 mm[Hg] [facility] pressure 16:25:00 Heart rate 2021-11-04 64 /min [facility] 16:25:00 Body temperature 2021-11-04 36.33 [facility] 16:25:00 Respiratory rate 2021-11-04 16 /min [facility] 16:25:00 Body height 2021-11-04 172.7 cm [facility] 16:25:00 Body weight 2021-11-04 94.972 kg [facility] 16:25:00 BMI 2021-11-04 31.84 kg/m2 [facility] 16:25:00 Oxygen saturation 2021-08-31 98 /min [facility] Pulse oximetry 13:10:00 Patient [facility] BP Diastolic 2021-08-31 84 mm[Hg] [facility] 13:10:[address] [facility] Oxygen saturation 2021-08-31 97 /min [facility] Pulse oximetry 10:40:00 Patient [facility] BP Diastolic 2021-08-31 70 mm[Hg] [facility] 10:40:[address] [facility] Oxygen saturation 2021-08-31 97 /min [facility] Pulse oximetry 10:02:00 Patient [facility] BP Diastolic 2021-08-31 70 mm[Hg] [facility] 10:02:[address] [facility] Oxygen saturation 2021-08-31 96 /min [facility] Pulse oximetry 08:05:00 Patient [facility] Oxygen saturation 2021-08-31 96 /min [facility] Pulse oximetry 07:50:00 Patient [facility] Oxygen saturation 2021-08-31 96 /min [facility] Pulse oximetry 05:35:00 Patient [facility] BP Diastolic 2021-08-31 74 mm[Hg] [facility] 05:35:[address] [facility] Oxygen saturation 2021-08-31 99 /min [facility] Pulse oximetry 02:20:00 Patient [facility] Oxygen saturation 2021-08-31 97 /min [facility] Pulse oximetry 02:05:00 Patient [facility] Oxygen saturation 2021-08-31 95 /min [facility] Pulse oximetry 01:00:00 Patient [facility] BP Diastolic 2021-08-31 70 mm[Hg] [facility] 01:00:[address] [facility] Oxygen saturation 2021-08-30 98 /min [facility] Pulse oximetry 22:00:00 Patient [facility] BP Diastolic 2021-08-30 72 mm[Hg] [facility] 22:00:[address] [facility] Oxygen saturation 2021-08-30 98 /min [facility] Pulse oximetry 21:00:00 Patient [facility] BP Diastolic 2021-08-30 72 mm[Hg] [facility] 21:00:[address] [facility] Oxygen saturation 2021-08-30 99 /min [facility] Pulse oximetry 20:25:00 Patient [facility] Oxygen saturation 2021-08-30 97 /min [facility] by Pulse oximetry 20:10:00 Patient [facility] Oxygen saturation 2021-08-30 99 /min [facility] Pulse oximetry 17:15:00 Patient [facility] BP Diastolic 2021-08-30 64 mm[Hg] [facility] 17:15:[address] [facility] Oxygen saturation 2021-08-30 100 /min [facility] Pulse oximetry 14:47:00 Patient [facility] Oxygen saturation 2021-08-30 96 /min [facility] by Pulse oximetry 14:32:00 Patient [facility] Oxygen saturation 2021-08-30 95 /min [facility] by Pulse oximetry 12:56:00 Patient [facility] BP Diastolic 2021-08-30 66 mm[Hg] [facility] 12:56:00 Patient [facility] Oxygen saturation 2021-08-30 97 /min [facility] by Pulse oximetry 09:50:00 Patient [facility] BP Diastolic 2021-08-30 76 mm[Hg] [facility] 09:50:[address] [facility] Oxygen saturation 2021-08-30 97 /min [facility] by Pulse oximetry 09:07:00 Patient [facility] BP Diastolic 2021-08-30 76 mm[Hg] [facility] 09:07:[address] [facility] Oxygen saturation 2021-08-30 100 /min [facility] by Pulse oximetry 08:26:00 Patient [facility] Oxygen saturation 2021-08-30 96 /min [facility] by Pulse oximetry 08:11:00 Patient [facility] Oxygen saturation 2021-08-30 97 /min [facility] Pulse oximetry 05:00:00 Patient [facility] BP Diastolic 2021-08-30 61 mm[Hg] [facility] 05:00:[address] [facility] Oxygen saturation 2021-08-30 98 /min [facility] Pulse oximetry 01:43:00 Patient [facility] Oxygen saturation 2021-08-30 95 /min [facility] by Pulse oximetry 01:35:00 Patient [facility] Oxygen saturation 2021-08-30 94 /min [facility] by Pulse oximetry 01:00:00 Patient [facility] BP Diastolic 2021-08-30 84 mm[Hg] [facility] 01[facility]00:[address] [facility] Oxygen saturation 2021-08-29 97 /min [facility] by Pulse oximetry 22:00:00 Patient [facility] BP Diastolic 2021-08-29 84 mm[Hg] [facility] 22[facility]00:[address] [facility] Oxygen saturation 2021-08-29 97 /min [facility] by Pulse oximetry 21:00:00 Patient [facility] BP Diastolic 2021-08-29 84 mm[Hg] [facility] 21:00:[address] [facility] Oxygen saturation 2021-08-29 99 /min [facility] by Pulse oximetry 20:48:00 Patient [facility] Oxygen saturation 2021-08-29 97 /min [facility] by Pulse oximetry 20:40:00 Patient [facility] Oxygen saturation 2021-08-29 100 /min [facility] by Pulse oximetry 18:26:00 Patient [facility] BP Diastolic 2021-08-29 77 mm[Hg] [facility] 18:26:[address] [facility] Oxygen saturation 2021-08-29 99 /min [facility] by Pulse oximetry 13:47:00 Patient [facility] Oxygen saturation 2021-08-29 94 /min [facility] by Pulse oximetry 13:37:00 Patient [facility] Oxygen saturation 2021-08-29 100 /min [facility] by Pulse oximetry 13:31:00 Patient [facility] BP Diastolic 2021-08-29 76 mm[Hg] [facility] 13:31:[address] [facility] Oxygen saturation 2021-08-29 100 /min [facility] by Pulse oximetry 09:25:00 Patient [facility] BP Diastolic 2021-08-29 87 mm[Hg] [facility] 09[facility]25:[address] [facility] Oxygen saturation 2021-08-29 100 /min [facility] by Pulse oximetry 09:04:00 Patient [facility] BP Diastolic 2021-08-29 87 mm[Hg] [facility] 09:04:[address] [facility] Oxygen saturation 2021-08-29 99 /min [facility] by Pulse oximetry 07:25:00 Patient [facility] Oxygen saturation 2021-08-29 97 /min [facility] by Pulse oximetry 07:15:00 Patient [facility] Oxygen saturation 2021-08-29 93 /min [facility] by Pulse oximetry 05:00:00 Patient [facility] BP Diastolic 2021-08-29 77 mm[Hg] [facility] 05:00:[address] [facility] Oxygen saturation 2021-08-29 98 /min [facility] by Pulse oximetry 01:50:00 Patient [facility] Oxygen saturation 2021-08-29 95 /min [facility] by Pulse oximetry 01:35:00 Patient [facility] Oxygen saturation 2021-08-29 95 /min [facility] by Pulse oximetry 01:00:00 Patient [facility] BP Diastolic 2021-08-29 74 mm[Hg] [facility] 01:00:00 Patient [facility] Oxygen saturation 2021-08-28 95 /min [facility] by Pulse oximetry 23:14:00 Patient [facility] BP Diastolic 2021-08-28 72 mm[Hg] [facility] 23:14:[address] [facility] Oxygen saturation 2021-08-28 95 /min [facility] by Pulse oximetry 21:00:00 Patient [facility] BP Diastolic 2021-08-28 72 mm[Hg] [facility] 21:00:00 Patient [facility] Oxygen saturation 2021-08-28 96 /min [facility] by Pulse oximetry 20:22:00 Patient [facility] Oxygen saturation 2021-08-28 98 /min [facility] by Pulse oximetry 18:05:00 Patient [facility] Oxygen saturation 2021-08-28 97 /min [facility] by Pulse oximetry 18:04:00 Patient [facility] Oxygen saturation 2021-08-28 98 /min [facility] Pulse oximetry 17:55:00 Patient [facility] Oxygen saturation 2021-08-28 94 /min [facility] by Pulse oximetry 17:14:00 Patient [facility] BP Diastolic 2021-08-28 78 mm[Hg] [facility] 17:14:[address] [facility] Oxygen saturation 2021-08-28 97 /min [facility] by Pulse oximetry 13:26:00 Patient [facility] BP Diastolic 2021-08-28 74 mm[Hg] [facility] 13:26:00 Patient [facility] Oxygen saturation 2021-08-28 99 /min [facility] by Pulse oximetry 10:15:00 Patient [facility] BP Diastolic 2021-08-28 72 mm[Hg] [facility] 10:15:[address] [facility] Oxygen saturation 2021-08-28 99 /min [facility] by Pulse oximetry 09:22:00 Patient [facility] BP Diastolic 2021-08-28 72 mm[Hg] [facility] 09:22:[address] [facility] Oxygen saturation 2021-08-28 96 /min [facility] by Pulse oximetry 08:09:00 Patient [facility] Oxygen saturation 2021-08-28 97 /min [facility] by Pulse oximetry 08:07:00 Patient [facility] Oxygen saturation 2021-08-28 97 /min [facility] Pulse oxim[facility] 08:00:00 Patient [facility] Oxygen saturation 2021-08-28 93 /min [facility] by Pulse oximetry 05:00:00 Patient [facility] BP Diastolic 2021-08-28 69 mm[Hg] [facility] 05:00:00 Patient [facility] Oxygen saturation 2021-08-28 99 /min [facility] by Pulse oximetry 01:09:00 Patient [facility] Oxygen saturation 2021-08-28 96 /min [facility] by Pulse oximetry 01:00:00 Patient [facility] BP Diastolic 2021-08-28 76 mm[Hg] [facility] 01:00:00 Patient [facility] Oxygen saturation 2021-08-28 96 /min [facility] by Pulse oximetry 00:00:00 Patient [facility] BP Diastolic 2021-08-28 67 mm[Hg] [facility] 00:00:00 Patient [facility] Oxygen saturation 2021-08-27 96 /min [facility] by Pulse oximetry 21:00:00 Patient [facility] BP Diastolic 2021-08-27 67 mm[Hg] [facility] 21:00:00 Patient [facility] Oxygen saturation 2021-08-27 98 /min [facility] by Pulse oximetry 20:28:00 Patient [facility] Oxygen saturation 2021-08-27 95 /min [facility] Pulse oximetry 20:20:00 Patient [facility] Height 2021-08-[address] [facility] 19:16:[address] [facility] Weight 2021-08-[address] [facility] 19:16:[address] [facility] BMI (Body Mass 2021-08-27 32.1 kg/m2 [facility] Index) 19:16:[address] [facility] Oxygen saturation 2021-08-27 97 /min [facility] Pulse oximetry 16:56:00 Patient [facility] BP Diastolic 2021-08-27 81 mm[Hg] [facility] 16:56:[address] [facility] Oxygen saturation 2021-08-27 96 /min [facility] by Pulse oximetry 15:36:00 Patient [facility] BP Diastolic 2021-08-27 78 mm[Hg] [facility] 15:36:[address] [facility] Oxygen saturation 2021-08-27 96 /min [facility] by Pulse oximetry 15:33:00 Patient [facility] BP Diastolic 2021-08-27 78 mm[Hg] [facility] 15:33:00 Patient [facility] Oxygen saturation 2021-08-27 96 /min [facility] by Pulse oximetry 14:37:00 Patient [facility] BP Diastolic 2021-08-27 78 mm[Hg] [facility] 14:37:[address] [facility] Oxygen saturation 2021-08-27 98 /min [facility] by Pulse oximetry 12:50:00 Patient [facility] Oxygen saturation 2021-08-27 97 /min [facility] by Pulse oximetry 12:49:00 Patient [facility] Oxygen saturation 2021-08-27 97 /min [facility] [...] Systolic blood 2019-07-23 101 mm[Hg] [facility] 10:[facility] Position: Sitting Diastolic blood 2019-07-23 66 mm[Hg] [facility] 10:43:00 Position: Sitting Body height 2019-07-23 68 [in_us] [facility] 10:43:00 Weight 2019-07-23 190 [lb_av] [facility] 10:43:00 Body mass index 2019-07-23 28.89 kg/m2 [facility] (BMI) [Ratio] 10:43:00 Heart Rate 2019-07-23 69 /min [facility] 10:43:00 Body temperature 2019-07-23 97.1 [degF] [facility] 10:43:00 Systolic blood 2019-05-02 112 mm[Hg] [facility]; [facility] pressure 15:13:00 Position: Sitting Diastolic blood 2019-05-02 76 mm[Hg] [facility]; [facility] pressure 15:13:00 Position: Sitting Body [...] BP Systolic 2018-12-31 113 mm[Hg] Location: [facility]; [facility] 16:04:00 Position: Sitting BP Diastolic 2018-12-31 79 mm[Hg] Location: [facility]; [facility] 16:04:00 Position: Sitting Height 2018-12-31 68 [in_us] [facility] 16:04:00 Weight 2018-12-31 204 [lb_av] [facility] 16:04:00 Body Mass Index 2018-12-31 31.02 kg/m2 [facility] Calculated 16:04:00 Temperature 2018-12-31 97.9 [degF] Method: Oral [facility] 16:04:00 Heart Rate 2018-12-31 79 /min [facility] 16:04:00 BP Systolic 2018-12-20 136 mm[Hg] Location: [facility]; [facility] 11:28:00 Position: Sitting BP Diastolic 2018-12-20 82 mm[Hg] Location: [facility]; [facility] 11:28:00 Position: Sitting Height 2018-12-20 68 [...] BP Systolic 2018-11-27 104 mm[Hg] Location: [facility]; [facility] 10:59:00 Position: Sitting BP Diastolic 2018-11-27 67 mm[Hg] Location: [facility]; [facility] 10:59:00 Position: Sitting Height 2018-11-27 68 [in_us] [facility] 10:59:00 Weight 2018-11-27 204 [lb_av] [facility] 10:59:00 Body Mass Index 2018-11-27 31.02 kg/m2 [facility] Calculated 10:59:00 Temperature 2018-11-27 98.2 [degF] Method: Oral [facility] 10:59:00 Heart Rate 2018-11-27 76 /min Location: R [facility] 10:59:00 Brachial Artery; Respiration Rate 2018-11-27 18 /min Quality: Normal [facility] 10:59:00 O2 SAT 2018-11-27 99 % Source: RA [facility] 10:59:00 BP Systolic 2018-11-26 105 mm[Hg] Location: [facility]; [facility] 11:27:00 Position: Supine BP Diastolic 2018-11-26 74 mm[Hg] Location: [facility]; [facility] 11:27:00 Position: Supine Heart Rate 2018-11-26 75 /min Location: R [facility] 11:27:00 Brachial Artery; Quality: Normal BP Systolic 2018-11-26 115 mm[Hg] Location: L[facility]; [facility] 11:25:00 Position: Standing BP Diastolic 2018-11-26 78 mm[Hg] Location: [facility]; [facility] 11:25:00 Position: Standing Heart Rate 2018-11-26 123 /min Location: L [facility] 11:25:00 Brachial Artery; Quality: Normal BP Systolic 2018-11-26 91 mm[Hg] Location: [facility]; [facility] 11:19:00 Position: Sitting BP Diastolic 2018-11-26 70 mm[Hg] Location: [facility]; [facility] 11:19:00 Position: Sitting Heart Rate 2018-11-26 84 /min Location: R [facility] 11:19:00 Brachial Artery; Quality: Normal Heart Rate 2018-11-26 84 /min Location: R [facility] 11:18:00 Brachial Artery; Quality: Normal BP Systolic 2018-11-26 106 mm[Hg] Location: [facility]; [facility] 10:57:00 Position: Sitting BP Diastolic 2018-11-26 [...] 99 % Source: RA [facility] 10:29:00 Heart Rate 2017-07-27 69 /min Location: R [facility] 10:36:00 Brachial Artery; Quality: Normal Respiration Rate 2017-07-27 16 /min Quality: Normal [facility] 10:36:00 BP Systolic 2017-07-27 110 mm[Hg] Location: [facility]; [facility] 10:36:00 Position: Sitting BP Diastolic 2017-07-27 78 mm[Hg] Location: [facility]; [facility] 10:36:00 Position: Sitting Height 2017-07-27 68 [in_us] [facility] 10:36:00 Body Mass Index 2017-07-27 31.54 kg/m2 [facility] Calculated 10:36:00 Weight 2017-07-27 207.4375 [lb_av] [facility] 10:36:00 Temperature 2017-07-27 98.5 [degF] Method: Oral [facility] 10:36:00 Procedures Procedure Date / Time Performing Clinician Source Performed XR KNEE 4+ VIEWS RIGHT 2021-11-04 18:38:56 [facility] two views 2021-08-31 00:00:00 [facility] [QL] CMP W/EGFR 2019-10-20 00:00:00 [facility] Spine lumbar wo 2019-10-20 00:00:[facility] [id number] . [facility] - PAP 2019-05-02 00:00:00 [facility] [QL[facility]] CULTURE, URINE, 2019-05-02 00:00:00 [facility] [QLH] URINALYSIS, COMPLETE 2019-05-02 00:00:00 [facility] US Pelvis with Pelvis 2019-04-15 00:00:00 [facility] Transvaginal [id number] [QLH] CULTURE, URINE, 2018-12-31 00:00:00 [facility] [QLH] URINALYSIS, COMPLETE 2018-12-03 00:00:00 [facility] [QL] CULTURE, URINE, 2018-12-03 00:00:00 [facility] [N] 2D Echo complete, with 2018-11-26 00:00:00 [facility] Doppler [id number] [QLH] CMP W/EGFR 2018-04-23 00:00:00 [facility] [[facility]] LIPID PANEL 2018-04-23 00:00:00 [facility] [[facility]] TSH, 3RD GENERATION 2018-04-23 00:00:00 [facility] W/REFLEX TO FT4 [QLH] CBC (INCLUDES 2018-04-23 00:00:00 [facility] DIFF/PLT) [QLH] HEMOGLOBIN A1c 2018-04-23 00:00:00 [facility] [QL] URINALYSIS, COMPLETE 2017-11-30 00:00:00 [facility] [QL] CULTURE, URINE, 2017-11-30 00:00:00 [facility] US Pelvis Transvaginal 2017-11-30 00:00:00 [facility] [id number] Plan of Care Planned Activity Planned Date Details Comments Source Diagnostic Test 2018-12-17 [N] 2D Echo [place] Physician s Pending 00:00:00 complete, with Doppler 61643 [code = [N] 2D Echo complete, with Doppler 56921] Instructions Bradycardia, [facility] Instructions COVID-19: What to ARTEMIO Loaiza es Patient Do If You Are Medical Center Sick - [facility] (03/02/2021) Encounters Start End Encounter Admission Attending Care Care Encounter Source Date/Time Date/Time Type Type Clinicians Facility Department ID 2022-01-13 Outpatient [facility] [id number] [place] 10:01:15 [id number] [facility] 2021-05-24 Outpatient NUNEZ, [facility] [id number] [place] 09:33:07 [facility] 2021-05-20 Outpatient JIMMIE, [facility] [id number] [place] 07:40:38 [facility] 2021-05-19 Outpatient NUNEZ, [facility] [id number] [place] 11:18:59 [facility] 2021-04-14 Outpatient NUNEZ, [facility] [id number] [place] 14:58:36 [facility] 2021-02-01 Outpatient KACI, [facility] [id number] [place] 15:47:47 MARK [facility] 2021-01-20 Outpatient MAYRA, [facility] [id number] [place] 13:22:10 [facility] 2021-01-18 Outpatient PAO, [facility] [id number] [place] 09:09:29 [facility] 2020-09-14 Outpatient BLADIMIR CORBETT [facility] [id number] [place] 12:17:06 [facility] 2020-09-14 Outpatient ALICIA, [facility] [id number] [place] 12:03:08 [facility] 2020-08-19 Outpatient [facility] [id number] [place] 11:51:51 [facility] 2020-08-19 Outpatient VIK, [facility] [id number] [place] 11:48:03 [facility] 2020-08-19 Outpatient [facility] [id number] [place] 11:39:27 [facility] 2020-08-10 Outpatient ALICIA, [facility] [id number] [place] 10:51:30 [facility] 2022-03-06 2022-03-06 Nurse Ingrid Lares [id number] .114 [id number] [place] 00:00:00 00:00:00 Triage Ingrid Lares [id number] [facility] 9.2.7.2.686 [place] [id number] 2022-02-28 2022-02-28 Outpatient JIMMIE, [facility] [id number] [place] 10:50:00 11:14:09 [facility] 2022-02-21 2022-02-21 Outpatient MAYRA, [facility] [id number] [place] 13:00:00 13:27:40 [facility] 2022-02-21 2022-02-21 Outpatient LI-MAURI [facility] [id number] [place] 10:45:00 10:45:00 [facility] ARGENIS 2022-02-06 2022-02-06 Outpatient JIMMIE, [facility] [id number] [place] 10:10:00 10:10:00 [facility] 2022-02-01 2022-02-01 Outpatient JAYLIN, [facility] [id number] [place] 11:30:00 15:04:27 GABRIEL [facility] 2022-01-10 2022-01-10 Office Margret [facility] 1.2.840.114 [id number] [place] 11:30:00 12:10:57 Visit MARIO Mc [id number] H [facility] 9.2.7.2.686 [address] [id number] 2022-01-10 2022-01-10 Outpatient [facility] [id number] [place] 11:05:00 11:05:00 Health 2022-01-10 2022-01-10 Outpatient [facility] [id number] [place] 11:00:00 11:00:00 Health 2022-01-04 2022-01-04 Outpatient MARGRET [facility] [id number] [place] 11:00:00 11:00:00 ALISSON Katiana MORE 2021-12-23 2021-12-23 Office Jimmie AILIN 6410 [id number] [id number] [place] 08:10:00 08:49:02 Visit Jaiyoanna GIBSONNIN [id number] Health 9.2.7.2.686 [id number] 2021-12-20 2021-12-20 Outpatient MAYRA [facility] [id number] [place] 13:00:00 13:25:07 [facility] 2021-12-08 2021-12-08 Outpatient SEB LEBLANC [facility] [id number] [place] 08:50:00 08:50:00 [facility] 2021-12-05 2021-12-05 Nurse Pancho Yu FALCON 1.2.840.114 [id number] [place] 00:00:00 00:00:00 Triage Pancho Yu [id number] [facility] MEDICAL 9.2.7.2.686 [place] [id number] 2021-12-02 2021-12-02 Outpatient JIMMIE [facility] [id number] [place] 07:50:00 07:50:00 [facility] 2021-11-23 2021-11-23 Outpatient BRAY [facility] [id number] [place] 09:00:00 09:00:00 GABRIEL burnett 2021-11-04 2021-11-04 Office AILIN Samuel 6410 1.2.208.134 [id number] [place] 11:10:00 11:30:[address] [id number] Health 9.2.7.2.686 [id number] 1 2021-11-02 2021-11-02 Telephone AILIN Bray 6400 1.2.840.114 [id number] [place] 00:00:00 00:00:[address] [id number] Health 9.2.7.2.686 [id number] 1 2021-09-06 2021-09-06 Telemedici Jimmie, UTP 6410 1.2.840.114 1 [id number] [place] 16:30:00 17:21:[address] [id number] Health 9.2.7.2.686 [id number] 1 2021-09-01 2021-09-01 Telephone Kendra Gibbons FALCON 1.2.84 0.114 [id number] [place] 00:00:00 00:00:00 Kendra Gibbons 350.1.13.58 Health MEDICAL 9.2.7.2.686 [place] [id number] 2021-09-01 2021-09-01 Telephone AILIN Cedeno 6400 1.2.840.114 [id number] [place] 00:00:00 00:00:[address] [id number] Health 9.2.7.2.686 [id number] 1 2021-08-27 2021-08-31 Outpatient 1 KILLAM[id number] 08:48[facility] 14:05:00 DAVID Patients Patients [address] [place] [address] 2021-08-27 2021-08-31 [facility] 08:48:00 14:05:00 Inpatient Patients [id number] [facility] [id number] Renato snider [address] 2021-08-27 2021-08-[address] [facility] [id number] [facility] [address] 07:48:00 13:05:00 -[id number] [facility] 2021-08-27 2021-08-27 Telephone Ericka Coley 1.2.840.11 [id number] [place] 00:00:00 00:00:00 Ericka Coley 350.1.13.58 Health MEDICAL 9.2.7.2.686 [place] [id number] 0 2021-08-24 2021-08-24 Emergency EM Lacy, [facility] [id number] [facility] 19:50:00 21:25:00 Clarissa [id number] [facility] 2021-08-24 2021-08-24 Emergency EM Lacy, [facility] [id number] [facility] 19:50:00 21:25:00 Clarissa 20 [facility] 2021-08-03 2021-08-03 Telephonic AILIN Clemons 6400 1.2.840.114 [id number] UT 11:00:00 11:29:[address] 350.1.13.58 Health 9.2.7.2.686 [id number] 1 2021-07-26 2021-07-26 Telephone AILIN Clemons 6400 1.2.840.114 [id number] [place] 00:00:00 00:00:[address] 350.1.13.58 Health 9.2.7.2.686 [id number] 1 2021-07-20 2021-07-20 Telephone Jones Pool 1.2.840.1 14 [id number] [place] 00:00:00 00:00:00 Jones Pool 350.1.13.58 Health SPECIALTY 9.2.7.2.686 [facility] [id number] 1 2021-05-23 2021-05-23 TelemedicAILIN Miller 6410 1.2.840.114 [id number] UT 15:40:00 15:40:[address] 350.1.13.58 Health 9.2.7.2.686 [id number] 1 2021-03-03 2021-03-03 Refill AILIN Segundo 6410 1.2.372.584 [id number] [place] 00:00:00 00:00:[address] 350.1.13.58 Health 9.2.7.2.686 [id number] 1 2021-02-01 2021-02-01 Telephonic Kaci UTP 6400 1.2.840.114 [id number] UT 15:48:28 15:48:[address] 350.1.13.58 Health 9.2.7.2.686 [id number] 1 2021-01-21 2021-01-21 Abstract Bernie Yepez UTP 6400 1.2.8 40.114 [id number] [place] 00:00:00 00:00:[address] 350.1.13. 58 Health 9.2.7.2.686 [id number] 1 2021-01-18 2021-01-18 Refill Kaci UTP 6400 1.2.840.114 12 [id number] [place] 00:00:00 00:00:[address] 350.1.13.58 Health 9.2.7.2.686 [id number] 1 2021-01-07 2021-01-07 Telephone Bladimir Corbett UTP 6410 1.2.840.114 [id number] [place] 00:00:00 00:00:[address] 350.1.13.58 Health 9.2.7.2.686 [id number] 2 2020-12-08 2020-12-08 Refill Kaci UTP 6400 1.2.840.114 12 [id number] [place] 00:00:00 00:00:[address] 350.1.13.58 Health 9.2.7.2.686 [id number] 1 2020-11-17 2020-11-17 Telemedicamber Samuel UTP 6410 1.2.840.114 1 [id number] [place] 07:39:21 07:59:[address] 350.1.13.58 Health 9.2.7.2.686 [id number] 1 2020-11-15 2020-11-15 Telephone Nahum, [facility]TP 6410 1.2.840.114 1 [id number] [place] 00:00:00 00:00:[address] 350.1.13.58 Health 9.2.7.2.686 [id number] 1 2020-11-11 2020-11-11 Telephone Nahum, [facility]TP 6410 1.2.840.114 1 [id number] [place] 00:00:00 00:00:[address] 350.1.13.58 Health 9.2.7.2.686 [id number] 1 2020-09-16 2020-09-16 Refill Neva Laguna [facility] 1.2.840.11 4 [id number] [place] 00:00:00 00:00:00 Neva LagunaAIRE 350.1.13.58 Health MEDICAL 9.2.7.2.686 [place] [id number] 4 2020-06-30 2020-06-30 AILIN Murguia UTP [id number] UT 09:45:00 09:45:00 t; YAN BEEBE Ph, ans YAN BEEBE 2020-06-23 2020-06-23 AILIN Murguia UTP [id number] [place] 11:30:00 11:30:00 t; YAN BEEBE Ph, ans MARK, [employer] 2020-06-14 2020-06-14 AILIN Feliz Multispecia [id number] [place] 11:00:00 11:00:00 t; JOSELO VARGAS lty - Elham JOSUE M.D. Internation evens [facility] 2020-06-10 2020-06-10 AILIN Feliz UTP [id number] UT 10:30:00 10:30:00 t; VARGAS, SHAElham WADE M.D. ans M.D. 2020-06-07 2020-06-07 Fiordaliza SIDHU, [facility] Family [id number] [place] 07:50:00 07:50:00 t; Milena JIMENEZ Medicine - Physici [facility] FOZIA Medical M.DSukhjinder [place] 2020-04-14 2020-04-14 AppointAILIN Edwards Multispecia [id number] [place] 11:30:00 11:30:00 t; JOSELO VARGAS lty - Physi rachel JOSUE M.D. Internation evens [facility] 2020-04-14 2020-04-14 Fiordaliza SIDHU, [facility] UTP [id number] [place] 09:50:00 09:50:00 t; Milena JIMENEZ Ph evens Mariee M.D. 2020-01-19 2020-01-19 Fiordaliza SIDHU, [facility] Family [id number] [place] 11:10:00 11:10:00 t; Milena JIMENEZ Medicine - Physici [facility] FOZIA Medical M.D. [place] 2019-11-18 2019-11-18 AppointAILIN Edwards UTP [id number] [place] 11:00:00 11:00:00 t; JOSELO VARGAS Physi ci SHAOJIE, M.D. ans M.D. 2019-11-13 2019-11-13 AppointAILIN Edwards Multispecia [id number] [place] 13:00:00 13:00:00 t; JOSELO VARGAS lty - Physi rachel JOSUE M.D. Internation evens [facility] 2019-11-06 2019-11-06 Fiordaliza CLEMONS, [facility] UTP [id number] [place] 10:30:00 10:30:00 t; YAN BEEBE Ph, ans ALIJANA, NP 2019-10-20 2019-10-20 Fiordaliza SIDHU, AILIN UTP [id number] UT 10:10:00 10:10:00 t; Milena JIMENEZ Ph evens Mariee M.D. 2019-09-19 2019-09-19 Appointchika DUNAWAY, [facility] [id number] [place] 09:00:00 09:00:00 t; SLICK DUNAWAY M.D. P hysici ALLAN, ans M.D. 2019-09-15 2019-09-15 [facility] [id number] [place] 13:30:00 13:30:00 t; Milena ALEGRE Ph evens Presley M.D. 2019-08-12 2019-08-12 [facility] KACI, [facility] [id number] [place] 11:30:00 11:30:00 t; YAN BEEBE Ph, ans ALIJANA, NP 2019-08-04 2019-08-04 [facility]'s [id number] [place] 11:00:00 11:00:00 t; Milena ALEGRE [place] - Ph milagros [place], [place] evens ALEGRE M.D[facility] 2019-07-24 2019-07-27 [facility] [id number] [facility] 13:05:00 19:10:00 CODEY 2019-07-24 2019-07-24 Fiordaliza GRANADO, [facility] [id number] UT 13:00:00 13:00:00 t; Elham COLLAZO M.D. ans SHERVIN, M.D. 2019-07-23 2019-07-23 Fiordaliza MULLER [facility] Obstetrics [id number] [place] 10:30:00 10:30:00 t; Margarita SCHMIDT i, M.D. Gynecology Mandie Rueda M.D. Clinic 2019-07-16 2019-07-16 [facility] KACI, [facility] [id number] [place] 15:30:00 15:30:00 t; YAN BEEBE Ph, ans ALIJANA, NP 2019-06-27 2019-06-27 Fiordaliza SIDHU [facility] Family [id number] UT 13:00:00 13:00:00 t; Milena JIMENEZ Medicine - Donna SID[place]und[place], [place] Kenneth Best M.D. [place] 2019-06-17 2019-06-17 Appointchika VARGAS [facility] Multispecia [id number] [place] 12:00:00 12:00:00 t; JOSELO VARGAS lt - Physi rachel JOSUE M.D. Internation evens [facility] 2019-05-13 2019-05-13 Fiordaliza CLEMONS, [facility] [id number] UT 11:00:00 11:00:00 t; YAN BEEBE Ph milagros CLEMONSssm [facility] YAN BEEBE 2019-05-09 2019-05-09 Fiordaliza ARIAS, [facility] [id number] UT 10:45:00 10:45:00 t; ANABEL ARIAS M.D. Physici HAJAR, ans M.D. 2019-05-02 2019-05-02 [facility] [id number] [place] 15:00:00 15:00:00 t; [facility] VERA M.D. [facility] Kenneth IBARRA.Ravi [place] 2019-04-28 2019-04-28 Emergency E MHBL MHBL 7527 MHBL 12:36:00 12:36:00 2019-04-15 2019-04-15 Fiordaliza CORONEL [facility] Women's [id number] UT 15:40:00 15:40:00 t; [facility] milagros CORONEL M.D. [place] evens RAMIREZ M.D. 2019-02-26 2019-02-26 [facility] [id number] [place] 10:30:00 10:30:00 t; ANABEL ARIAS M.D. Physici HAJAR, ans M.D. 2018-12-31 2018-12-31 [facility]iza [facility] Women's [id number] [place] 15:00:00 15:00:00 t; MARINO [place] - Physi rachel CAPELLAN M.D. [facility] Kenneth PICHARDO M.D. [place] 2018-12-25 2018-12-25 Fiordaliza CLEMONS, [facility] [id number] UT 13:30:00 13:30:00 t; YAN BEEBE Ph milagros CLEMONS, evens BEEBE NP 2018-12-20 2018-12-20 Appointmen MED [facility] Centralized [id number] [place] 11:30:00 11:30:00 t; MED PROVIDER, Case Phys ici PROVIDER, TCM Management ans TCM 2018-12-08 2018-12-08 [facility] 7526 [facility] 20:00:00 11:53:00 2018-11-27 2018-11-27 AppointAILIN Figueroa [facility] [id number] UT 13:45:00 13:45:00 t; NATHALIA CEDENO, Milena Tapia M.D. 2018-11-27 2018-11-27 AILIN Feliz Multispecia [id number] [place] 10:30:00 10:30:00 t; JOSELO VARGAS, [facility] - Physi ci Milena JOSUE Internation evens [facility] 2018-11-26 2018-11-26 AILIN Flower Non-Invasiv [id number] [place] 13:30:00 13:30:00 t; CÉSAR NON-INVASIV e - [place] Physic NON-INVASI E Medical [facility] 2018-11-26 2018-11-26 AILIN Santamaria Family [id number] [place] 10:30:00 10:30:00 t; Milena JIMENEZ Medicine - [facility] Kenneth JIMENEZ M.D. [place] 2018-11-01 2018-10-31 Inpatient E [facility] CAR 7525 [facility] 10:09:00 20:37:00 2018-09-09 2018-09-09 AppointAILIN Robertson [facility] [id number] [place] 09:20:00 09:20:00 t; JORDI WONG, Ph Milena Villanueva M.D. 2018-04-23 2018-04-23 AppointAILIN Edwards [facility] [id number] [place] 13:00:00 13:00:00 t; JOSELO VARGAS, [facility] and Ph milagros JOSUE M.D. Wellness evens [facility] 2018-03-06 2018-03-06 AppointAILIN Edwards [facility] [id number] UT 12:00:00 12:00:00 t; JOSELO VARGAS Physi ci SHAOJIE, M.D. ans M.D. 2018-02-19 2018-02-19 Appointchika ALICIA [facility] UTP [id number] UT 11:30:00 11:30:00 t; JOSELO VARGAS Physi ci SHAOJIE, M.D. ans M.D. 2018-02-19 2018-02-19 Appointchika ALICIA [facility] UTP [id number] UT 11:30:00 11:30:00 t; JOSELO VARGAS Physi ci SHAOJIE, M.D. ans M.D. 2017-12-26 2017-12-26 KARINE Sawyer UTP UTP [id number] UT 14:30:00 14:30:00 t; Milena SCHMIDT Physic Milena Herrera 2017-11-30 2017-11-30 AILIN Santamaria Family [id number] [place] 13:00:00 13:00:00 t; Milena JIMENEZ Medicine P evens Garcia M.D. 2017-11-21 2017-11-21 AILIN Feliz Psychiatry [id number] [place] 11:00:00 11:00:00 t; JOSELO VARGAS Physi ci SHAOJIE, M.D. ans MBud 2017-11-06 2017-11-06 Fiordaliza VARGAS [facility] [id number] UT 12:00:00 12:00:00 t; JOSELO VARGAS Physi ci SHAOJIE, M.D. ans M.D. 2017-08-30 2017-08-30 AILIN Hager Womens [id number] UT 10:00:00 10:00:00 t; Blank PICHARDO i, M.D. ans GAZALA, M.D. 2017-08-06 2017-08-06 AppointAILIN Edwards Psychiat[facility] [id number] [place] 14:00:00 14:00:00 t; JOSELO VARGAS Physi ci SHAOJIE, M.D. ans M.D. 2017-08-06 2017-08-06 AILIN Gaming Cardiology [id number] UT 10:40:00 10:40:00 t; JORDI WONG, Ph Milena Villanueva M.D. 2017-07-27 2017-07-27 Appointmen NAHUM, UTP Family [id number] UT 10:30:00 10:30:00 t; Milena JIMENEZ ans AMBER, M.D. 2017-06-26 2017-06-26 Appointmen ALIICA, UTP UTP [id number] UT 13:30:00 13:30:00 t; JOSELO VARGAS, Physi Milena Pettit M.D. 2017-04-24 2017-04-24 Appointmen ALICIA, UTP UTP [id number] UT 12:00:00 12:00:00 t; JOSELO VARGAS Physi Milena Pettit M.D. 2017-01-11 2017-01-11 Appointmen NAHUM, UTP UTP [id number] UT 13:45:00 13:45:00 t; Milena JIMENEZ Ph, ans AMBER, M.D. 2017-01-02 2017-01-02 Appointmen ALICIA, UTP UTP [id number] UT 14:00:00 14:00:00 t; JOSELO VARGAS Physi Milena Pettit M.D. 2017-01-02 2017-01-02 Appointmen DA, UTP UTP [id number] UT 10:30:00 10:30:00 t; HIRAL ROBERSON, Elbert BLACKMAN, P.A. evens P.A. 2016-10-03 2016-10-03 Appointmen NAHUM, UTP UTP [id number] UT 11:00:00 11:00:00 t; Milena JIMENEZ Ph, ans AMBER, M.D. 2016-09-27 2016-09-27 Appointmen ALICIA, AILIN UTP [id number] UT 13:00:00 13:00:00 t; JOSELO VARGAS Physi Milena Pettit M.D. 2016-09-20 2016-09-20 [facility], [facility] UTP [id number] [place] 11:00:00 11:00:00 t; Milena JIMENEZ Ph evens Mariee M.D. 2016-09-05 2016-09-05 [facility] NA[facility]UM, [facility] UTP [id number] UT 14:00:00 14:00:00 t; Milena JIMENEZ Ph evens Mariee M.D. 2016-07-28 2016-07-28 [facility] NAHUM, [facility] UTP [id number] UT 10:45:00 10:45:00 t; Milena JIMENEZ Ph evens Mariee M.D. 2016-07-28 2016-07-28 [facility] ROXANA, [facility] UTP [id number] UT 09:30:00 09:30:00 t; BLANCA SCHMIDT, Ph Milena Cruz M.D. 2016-06-28 2016-06-28 [facility] VOWELS, [facility] UTP [id number] UT 10:00:00 10:00:00 t; RAGHAVENDRA JOHNSON P hysici PATRICIA, M.D. ans M.D. 2016-06-16 2016-06-16 [facility] ROMI BUTLER, [facility] UTP [id number] UT 14:30:00 14:30:00 t; Milena BRADY ans VERA, M.D. 2016-01-13 2016-01-13 [facility] UTP UTP [id number] UT 15:00:00 15:00:00 t; Titus calvillo Phys ici Montalvo-C M.D. ans hen, Rolf, M.D. 2015-11-16 2015-11-16 [facility] UTP UTP [id number] UT 10:30:00 10:30:00 t; Titus calvillo Phys ici Montalvo-C M.D. ans hen, Rolf, M.D. 2015-09-29 2015-09-29 [facility] MUNIRA [facility] UTP [id number] UT 12:00:00 12:00:00 t; , GABRIELLA, Physi ci GABRIELLA Anders M.D., M.D. 2015-07-26 2015-07-26 AILIN Myles UTP [id number] UT 13:30:00 13:30:00 t; Jordi GUSMAN i, M.D. ans ROBERT, M.D. Results Test Description Test Time Test Comments Results Result Sourc e Comments CHEST 2 VIEWS 2021-08-31 09:04:00 [facility] : 1985 Sex: F [facility] [address] [place] [address] Patient Name: CHRISTA MIRELES MR #: [id number] : 1985 Age/Sex: 36/F Req #: [id number] Adm Physician: DAVID SANCHEZ MD Ordered by: CHERI SAHU [employer]NAGER Report #: [id number] Location: [facility] Room/Bed: [facility] Procedure: [id number] DX/CHEST 2 VIEWS Exam Date: 08/31/21 Exam [...] GERBER MD 6 Transcribed By: KELLY on 08/31/21903 COPY TO: CHERI SAHU NP Serum or plasma calcium measurement (mass/volume) 2021-08-31 06:16:00 Test Item Value Reference Range Interpretation Comme nts Calcium Level (test code = 47739-9) 7.9 8.4-10.2 [facility] leukocytes automated count (number/volume)2021-08-31 06:16:00 Test Item Value Reference Range Interpretation Comments White Blood Count (test code = 6690-2) 3.81 4.8-10.8 [facility] erythrocytes automated count (number/volume)2021-08-31 06:16:00 Test Item Value Reference Range Interpretation Comments Red Blood Count (test code = 789-8) 4.45 3.6-5.1 [facility] measurement (moles/volume) 2021-08-31 06:16:00 Test Item Value Reference Range Interpretation Comments Hemoglobin (test code = 15623-3) 12.7 12.0-16.0 [facility] hematocrit (volume fraction) 2021-08-31 06:16:00 Test Item Value Reference Range Interpretation Comments Hematocrit (test code = 4544-3) 41.2 34.2-44.1 [facility] eryth[facility] mean corpuscular volume 2021-08-31 06:16:00 Test Item Value Reference Range Interpretation Comments Mean Corpuscular Volume (test code = 92.6 81-99 787-2) [facility] mean corpuscular hemoglobin (mass per erythrocyte)2021-08-31 06:16:00 Test Item Value Reference Range Interpretation Comments Mean Corpuscular Hemoglobin (test code 28.5 28-32 = 785-6) [facility] mean corpuscular hemoglobin concentration measurement (mass/volume)2021-08-31 06:16:00 Test Item Value Reference Range Interpretation Comments Mean Corpuscular Hemoglobin Concent 30.8 31-35 (test code = 786-4) [facility]manR[facility] [id number] 06:16:00 Test Item Value Reference Range Interpretation Comments Red Cell Distribution Width (test code 14.3 11.7-14.4 = 68602-3) [facility] blood platelet count (count/volume) 2021-08-31 06:16:00 Test Item Value Reference Range Interpretation Comments Platelet Count (test code = 777-3) 182 140-360 [facility]Autom[facility] blood segmented neutrophil count as percentage of total wpxrjuuisa8128-78-83 06:16:00 Test Item Value Reference Range Interpretation Comments Neutrophils (%) (Auto) (test code = 46.2 38.7-80.0 00429-6) [facility] blood lymphocyte count as percentage ot total krpqgbpkzh5589-08-95 06:16:00 Test Item Value Reference Range Interpretation Comments Lymphocytes (%) (Auto) (test code = 41.7 18.0-39.1 736-9) [facility]Autom[facility] blood monocyte count as percentage of total fjrtldjtrl0786-60-60 06:16:00 Test Item Value Reference Range Interpretation Comments Monocytes (%) (Auto) (test code = 9.2 4.4-11.3 5905-5) [facility]Autom[facility] blood eosinophil count as percentage of total eidrebevsc8560-57-23 06:16:00 Test Item Value Reference Range Interpretation Comments Eosinophils (%) (Auto) (test code = 1.6 0.0-6.0 713-8) [facility] blood basophil count as percentage of total zzaungcqvb3177-86-57 06:16:00 Test Item Value Reference Range Interpretation Comments Basophils (%) (Auto) (test code = 0.3 0.0-1.0 706-2) [facility]manFluoroscopic procedure less than one hour [id number] 06:16:00 Test Item Value Reference Range Interpretation Comments IM GRANULOCYTES % (test code = IM 1.0 0.0-1.0 GRANULOCYTES %) [facility] blood neutrophil oweit6861-40-27 06:16:00 Test Item Value Reference Range Interpretation Comments Neutrophils # (Auto) (test code = 1.8 2.1-6.9 751-8) [facility]manBlood lymphocytes count (number/volume) 2021-08-31 06:16:00 Test Item Value Reference Range Interpretation Comments Lymphocytes # (Auto) (test code = 1.6 1.0-3.2 60222-0) [facility]Bl[facility] monocytes automated count (number/volume)2021-08-31 06:16:00 Test Item Value Reference Range Interpretation Comments Monocytes # (Auto) (test code = 742-7) 0.4 0.2-0.8 [facility]manAutom[facility] blood eosinophil [id number] 06:16:00 Test Item Value Reference Range Interpretation Comments Eosinophils # (Auto) (test code = 0.1 0.0-0.4 711-2) [facility] blood basophil count (count/volume) 2021-08-31 06:16:00 Test Item Value Reference Range Interpretation Comments Basophils # (Auto) (test code = 704-7) 0.0 0.0-0.1 [facility]manFluoroscopic procedure less than one hour ofkqtzpp1284-37-00 06:16:00 Test Item Value Reference Range Interpretation Comments Absolute Immature Granulocyte (auto 0.04 0-0.1 (test code = Absolute Immature Granulocyte (auto) [facility] plasma sodium measurement (moles/volume)2021-08-31 06:16:00 Test Item Value Reference Range Interpretation Comments Sodium Level (test code = 2951-2) 143 136-145 [facility] [facility] potassium [facility] (moles/volume)2021-08-31 06:16:00 Test Item Value Reference Range Interpretation Comments Potassium Level (test code = 2823-3) 4.1 3.5-5.1 [facility] chloride measurement (moles/volume)2021-08-31 06:16:00 Test Item Value Reference Range Interpretation Comments Chloride Level (test code = 2075-0) 107 98-107 [facility] carbon dioxide, total measurement (moles/volume)2021-08-31 06:16:00 Test Item Value Reference Range Interpretation Comments Carbon Dioxide Level (test code = 27 22-29 2027-11) [facility] anion [id number] 06:16:00 Test Item Value Reference Range Interpretation Comments Anion Gap (test code = 89369-9) 13.1 8-16 [facility] urea nitrogen measurement (mass/volume)2021-08-31 06:16:00 Test Item Value Reference Range Interpretation Comments Blood Urea Nitrogen (test code = 9 10-18 3094-0) [facility] creatinine measurement (mass/volume)2021-08-31 06:16:00 Test Item Value Reference Range Interpretation Comments Creatinine (test code = 2160-0) 0.66 0.57-1.11 [facility] urea nitrogen/creatinine mass [id number] 06:16:00 Test Item Value Reference Range Interpretation Comments BUN/Creatinine Ratio (test code = 14 6- 3097-3) [facility] filtration [facility] (GFR) [id number] 06:16:00 Test Item Value Reference Range Interpretation Comments Estimat Glomerular 100 See_Comment [Automat ed message] The Filtration Rate (test system which generated code = 880731520) this resul t transmitted reference range : 60-. The reference r jeannie was not used to int erpret this result as normal/abnormal . [facility]manGlucose ukfcukpvlrq0012-55-07 06:16:00 Test Item Value Reference Range Interpretation Comments Glucose Level (test code = XBG1532) 78 74-118 [facility]manFluoroscopic procedure less than one hour [id number] 06:23:00 Test Item Value Reference Range Interpretation Comments Hemoglobin A1c Percent (test code = 5.0 4.0-7.0 Hemoglobin A1c Percent) [facility]manPhosphorus [id number] 06:23:00 Test Item Value Reference Range Interpretation Comments Phosphorus Level (test code = EGZ9062) 3.7 2.3-4.7 [facility] magnesium measurement (mass/volume)2021-08-30 06:23:00 Test Item Value Reference Range Interpretation Comments Magnesium Level (test code = 60376-9) 1.9 1.3-2.1 [facility] total bilirubin measurement (mass/volume)2021-08-30 06:23:00 Test Item Value Reference Range Interpretation Comments Total Bilirubin (test code = 1975-2) 0.5 0.2-1.2 [facility]manFluoroscopic procedure less than one hour nihapnej8723-60-12 06:23:00 Test Item Value Reference Range Interpretation Comments Aspartate Amino Transf (AST/SGOT) (test 28 5-34 code = Aspartate Amino Transf (AST/SGOT)) [facility] alanine aminotransferase measurement (enzymatic activity/volume)2021-08-30 06:23:00 Test Item Value Reference Range Interpretation Comments Alanine Aminotransferase (ALT/SGPT) 26 0-55 (test code = 1742-6) [facility] protein measurement (mass/volume)2021-08-30 06:23:00 Test Item Value Reference Range Interpretation Comments Total Protein (test code = 2885-2) 6.3 6.5-8.1 [facility] albumin measurement (mass/volume)2021-08-30 06:23:00 Test Item Value Reference Range Interpretation Comments Albumin (test code = 1751-7) 3.6 3.5-5.0 [facility]manPlasma globulin measurement (mass/volume) 2021-08-30 06:23:00 Test Item Value Reference Range Interpretation Comments Globulin (test code = 18990-3) 2.7 2.3-3.5 [facility] albumin/globulin mass ratio 2021-08-30 06:23:00 Test Item Value Reference Range Interpretation Comments Albumin/Globulin Ratio (test code = 1.3 0.8-2.0 1759-0) [facility] plasma alkaline phosphatase measurement (enzymatic activity/volume)2021-08-30 06:23:00 Test Item Value Reference Range Interpretation Comments Alkaline Phosphatase (test code = 46 40-150 6768-6) [facility] triglyceride measurement (mass/volume)2021-08-30 06:23:00 Test Item Value Reference Range Interpretation Comments Triglycerides Level (test code = 157 0-149 2571-8) [facility] cholesterol measurement (mass/volume)2021-08-30 06:23:00 Test Item Value Reference Range Interpretation Comments Cholesterol Level (test code = 2093-3) 171 0-199 [facility] cholesterol in LDL measurement (mass/volume)2021-08-30 06:23:00 Test Item Value Reference Range Interpretation Comments LDL Cholesterol (test code = 2089-1) 105 60-130 [facility] cholesterol in HDL measurement (mass/volume)2021-08-30 06:23:00 Test Item Value Reference Range Interpretation Comments HDL Cholesterol (test code = 2085-9) 35 40-60 [facility] plasma total cholesterol/cholesterol in HDL mass [id number] 06:23:00 Test Item Value Reference Range Interpretation Comments Cholesterol/HDL Ratio (test code = 4.9 3.0-3.6 9830-1) [facility] plasma thyrotropin measurement by detection limit <= 0.005 miu/l (units/volume)2021-08-30 06:23:00 Test Item Value Reference Range Interpretation Comments Thyroid Stimulating Hormone (TSH) (test 1.325 0.350-4.940 code = 01000-6) [facility]man[facility]ST [facility]ING[facility] ([facility])2021-08-29 11:04:00 [facility] 1985 Sex: F [facility] [address] [address] Patient Name: CHRISTA MIRELES MR #: [id number] : 1985 Age/Sex: 36/F Req #:[id number] Adm Physician: DAVID SANCHEZ MD Ordered by: CHRISTINE YANEZ MD Report #: [id number] Location: [facility] Room/Bed: [facility] Procedure: [id number] DX/CHEST SINGLE (PORTABLE) Exam Date: 08/29/21 Exam Time: 0946 REPORT STATUS: Signed Exam: CHEST SINGLE (PORTABLE) Date: 08/29/2021 11:03 AM Indication: Congestion Comparison: CXR of the prior day FINDINGS: Lines/Tubes:None Lungs:The lungs are well inflated. There is perihilar fullness and indistinctness of the pulmonary vasculature. No focal consolidationor airspace edema. Pleura:No pleural effusion. No pneumothorax. Heart/Mediastinum:The cardiomediastinal silhouette is unchanged in size and contour. Bones/Soft Tissues: No acute osseous injury. Abdomen: No free air below the diaphragm. IMPRESSION: Unchanged mild central pulmonary vascular congestion.No airspace edema or pneumonia. Signed by: Fernando Tapia on 08/29/2021 11:04 AM Dictated By: FERNANDO TAPIA MD 06 Transcribed By: KELLY on 08/29/211103 COPY TO: CHRISTINE YANEZ MD Troponin I measurement by highly sensitive enzyme [id number] 15:33:00 Test Item Value Reference Range Interpretation Comments Troponin I (test code = 80923-9) 0.100 0-0.300 [facility]2021-08-27 13:11:00 [facility] : 1985 Sex: F [place] [address] Patient Name: CHRISTA MIRELES MR #: [id number] : 1985 Age/Sex: 36/F Req #: [id number] Adm Physician: DAVID SANCHEZ MD Ordered by: CHRISTINE YANEZ MD Report #: [id number] Location: MED/SURG2 Room/Bed: [facility] Procedure: [id number] DX/CHEST SINGLE (PORTABLE) Exam Date: 08/27/21 Exam Time: 1155 REPORT STATUS: Signed Chest dated 08/27/2021 Clinical Information: Cough Comment: Heart is enlarged. Pulmonary vasculature is indistinct. Interstitial disease is seen bilaterally suggestive of vascular congestion. No pleural effusion or pneumothorax is seen. Impression: Cardiomegaly with vascular congestion. Signed by: Gabriella Dee on 08/27/2021 1:11 PM Dictated By: GABRIELLA DEE MD 1314 Transcribed By: PSCRIBE on 08/27/21 1311 COPY TO: CHRISTINE YANEZ MD COMPREHENSIVE METABOLIC [id number] 20:48:00 Test Item Value Reference Range Interpretation [...] (test code = ALKP) Coronavirus 2019 nCoV [id number] 20:47:00 Test Item Value Reference Range Interpretation Comments Coronavirus 2019 Positive Negative A ID NOW COVI D-19 assay nCoV Bedside (test performed on the ID NOW code = [id number]) Instrum ent lala rapid molecular in vi tro diagnostic test utilizing anisothermal nu cleic acid amplification t echnology intendedfor the qualitative det ection of nucleic acid fr om hygODEU-LsM-2 v iral RNA in direct nasal , [...] , and epidemiological informatio n. CBC W/AUTO [id number] 20:40:00 Test Item Value Reference Range Interpretation [...] x10 3/uL 0.0-0.2 - XR CHEST 1 [id number] 20:28:00 [facility] : 1985 Sex: F Patient Name: CHRISTA MIRELES Unit No: [id number] EXAMS: CPT CODE: [id number] XR CHEST 1 V 13144 Reason: cough EXAM: - XR CHEST 1 [...] IMPRESSION: No definite focal consolidation. at 2027 Reportedand signed by: Cal Galvan MD CC: Clarissa Montesinos DO Technologist: DANIELE Cordova Trscrpt D t/ (2027)YenMKM4 Orig Print D/T: S: 08/24/2021 (2030) [place] FSED NAME: CHRISTA MIRELES [address] [place] [address] PHYS: Clarissa [place] [address] : 1985 AGE: 36 SEX: F LOC: D.RER PHONE #: EXAM DATE: 08/24/2021 [...] to bewi thin a diagnostic christin gory. [facility][QL] LIPID [id number] 13:21:00 Test Item Value Reference Range Interpretation Comments CHOLESTEROL, TOTAL; 155 mg/dl <200 N Normal (test code = 2093-3) HDL CHOLESTEROL; 44 mg/dl > OR = 50 Below Low Threshold (test code = 2085-9) TRIGLYCERIDES; 64 mg/dl <150 N Normal (test code = 2571-8) LDL-CHOLESTEROL; 96 {MG/DL JAX} N Reference range: Normal (test code = <100 Sarmad irable range 38498-0) <100 mg/dL for primary prevent ion; <70 [...] SS et al . LEONARDO. 2013;310( 19): 9819-8363 (http://educati on.Nativoo. com/f aq/OIM061) CHOL/HDLC RATIO 3.5 {CALC} <5.0 N (test code = CHOL/HDLC RATIO) NON HDL CHOLESTEROL 111 {MG/DL <130 N For zuly ents with (test code = NON HDL JAX} diabete s plus 1 CHOLESTEROL) major ASCVD ris k factor, treatin g to a non-HDL-C goa l of <100 mg/dL (LDL -C of <70 mg/dL) is considered a therapeutic opt ion. [facility][QL] HEPATITIS C [id number] 13:21:00 Test Item Value Reference Range Interpretation Comments HEPATITIS C NON-REACTIVE NON-REACTIVE N ANTIBODY; Normal (test code = 74826-3) SIGNAL TO CUT-OFF 0.02 <1.00 N HCV antibo dy was (test code = SIGNAL non-reac tive. There TO CUT-OFF) is no laborator y evidence of HCV infection. In m ost cases, no furth er action is requi red. However,if rece nt HCV exposure is suspected, a te st for HCV RNA([place] [address]) is sugge sted. For additional information ple ase refer [email or web address] ion.[place]. [place]/fa q/VFR75v9(This link is being provid ed for informational/e ducati onal purposes o nly.) [facility][QL] HEMOGLOBIN [id number] 13:21:00 Test Item Value Reference Range Interpretation [...] di abetes in children. Ac cording to [place] [employer] (ADA)guidelines , hemoglobin A1c <7.0% represents optimalcontrol in non- di abetic patients. Differentmetric s may apply to specif ic patient populat ions. Standards of Ut dical Care in Diabete s(ADA). [facility][QLH] URINALYSIS, [id number] 16:20:01 Test Item Value Reference Range Interpretation Comments UA Turbidity (test code = 77433-1) Clear Clear UA Spec Grav (test code = 5810-7) 1.012 <=1.030 UA pH (test code = 5803-2) 7.0 5.0-8.0 UA Protein (test code = 03891-7) Negative Negative UA Glucose (test code = 74891-8) Negative Negative UA Ketones (test code = 04541-5) Negative Negative UA Bili (test code = 5770-3) Negative Negative UA Blood (test code = 5794-3) Negative Negative UA Nitrite (test code = 5802-4) Negative Negative UA Leuk Est (test code = 5799-2) Negative Negative UA RBC (test code = 15747-7) 1 {/HPF} 0-2 UA WBC (test code = 16221-9) <1 0-5 UA Bacteria (test code = 73558-1) Occasional None Seen UA Mucus (test code = 8247-9) Few None Seen UA Sq Epi (test code = 53119-9) Occasional Few UA Color (test code = 5778-6) Ltyellow UROBILINOGEN (test code = 07711-9) <=1.0 0.1-1.0 [facility]] CULTURE, URINE, [id number] 16:20:01 Test Item Value Reference Range Interpretation Comments FINAL REPORT (test code = FINAL No Growth REPORT) [facility]. [facility] - [id number] 00:00:00 Test Item Value Reference Range Interpretation Comments Case (test code = Click ImageLink button N Case) for report. Specimen 1 (test code Click ImageLink button N = Specimen 1) for report. [facility] Pelvis with Pelvis Transvaginal [id number] 12:40:00 PROCEDURE INFORMATION:Exam: US Pelvis Complete, Transabdominal [...] ovarian cyst.Manolo Mckeon MD On 04/29/2019 15:51:15; [id number]--Jegi by: Manolo Mckeon MDDictated Date/time: 04/29/19 15:51Electronically Signed by: Manolo Mckeon MD 04/29/2014:51FINAL REPORT[facility]] CULTURE, URINE, ROUTINE 2019-01-03 03:00:00 Test Item Value Reference Range Interpretation Comments CULTURE (test code See Comment CULTURE, URINE, ROUTINE = CULTURE) MICRO NUMBER: [id number] TEST STATUS: FI NAL SPECIMEN SOURCE : URINE SPECIMEN QUALIT Y: ADEQUATE RESULT : No GrowthNO COLLEC TION DATE RECEIVED. WE HUIZAR VE USEDTHE DATE TH E SPECIMEN WAS RE CEIVED BY THISLABORATORY THE COLLECTION DATE . IF THISIS INCORREC T, PLEASE CONTACT CLIENT SERVICES.PHONE NUMBER: [phone] [facility][O] Urine Dipstick (In Office)2018-12-31 00:00:00 Test Item Value Reference Range Interpretation Comments Glucose (test code = Glucose) negative N LEUKOCYTES (test code = LEUKOCYTES) negative N NITRITE; Normal (test code = negative N 02068-4) UROBILINOGEN; Normal (test code = 0.2 N 61443-5) PROTEIN; Normal (test code = negative N 11796-3) pH (test code = pH) 5.5 N URINE BLOOD; Normal (test code = trace N 17213-2) SPECIFIC GRAVITY; Normal (test code 1.030 N = 2965-2) KETONES; Normal (test code = negative N 76118-5) BILIRUBIN; Normal (test code = negative N 05832-0) [facility]] URINALYSIS, [id number] 08:48:00 Test Item Value Reference Range Interpretation Comments COLOR; Normal (test code = 5778-6) YELLOW YELLOW N APPEARANCE (test code = APPEARANCE) CLEAR CLEAR N SPECIFIC GRAVITY; Normal (test code 1.015 1.001-1.035 N = 2965-2) PH; Normal (test code = 2756-5) 8.0 5.0-8.0 N GLUCOSE; Normal (test code = NEGATIVE NEGATIVE N 1547-9) BILIRUBIN; Normal (test code = NEGATIVE NEGATIVE N 52215-5) KETONES; Normal (test code = NEGATIVE NEGATIVE N 34542-9) OCCULT BLOOD; Abnormal (test code = 3+ NEGATIVE A 75338-3) PROTEIN; Abnormal (test code = 1+ NEGATIVE A 71026-6) NITRITE; Normal (test code = NEGATIVE NEGATIVE N 33409-5) LEUKOCYTE ESTERASE (test code = NEGATIVE NEGATIVE N LEUKOCYTE ESTERASE) WBC; Normal (test code = 6690-2) 0-5 < OR = 5 N RBC; Abnormal (test code = 789-8) 3-10 < OR = 2 A SQUAMOUS EPITHELIAL CELLS (test 0-5 < OR = 5 code = 67690-1) BACTERIA; Abnormal (test code = FEW NONE SEEN A 630-4) HYALINE CAST; Normal (test code = NONE SEEN NONE SEEN N 55942-4) [facility]] CULTURE, URINE, [id number] 08:48:00 Test Item Value Reference Range Interpretation Comments CULTURE (test See Comment A CULTURE, URINE , ROUTINE code = CULTURE) MICRO NUMBER : [id number] TEST STATUS: FI NAL SPECIMEN SOURCE : URINE SPECIMEN QUALIT Y: ADEQUATE RESULT : Greater than 100,000 CF U/mL of Proteus mirabil is This organism may sh ow imipenem resist ance by mechanisms othe r than a carbapenemase. P.mirabilis - INT RIDDHI AMOX/CLAVULANAT E S 4 AMPICILLIN R >= 32 AMP/SULBACTAM S 4 CEFAZOLIN NR <= 4 2 CEFEPIME S <=1 CEFTRIAXONE S < =1 CIPROFLOXACIN R >=4 GENTAMICIN S <= 1 [...] . mirabilis: Cefa zolin is resistant if MN C > or = 8 mcg/mL. (Distin guishing susceptible susanne miguel intermediate fo r isolates with RIDDHI < or = 4 mcg/mL requires additi onal testing.) Note 2: For uncomplicated U TI caused by E. coli, K. pneumoniae or P. mirabilis : Cefazolin is walsh sceptible if RIDDHI <32 mcg/ mL and predicts suscep tible to the oral agents cefaclor, cefdinir, cefpo doxime, cefprozil, cefu roxime, cephalexin and loracarbef. [facility]] LIPID [id number] 11:26:00 Test Item Value Reference Range Interpretation Comments CHOLESTEROL, TOTAL; 187 mg/dl <200 N Normal (test code = 3-3) HDL CHOLESTEROL; 53 mg/dl >50 N Normal (test code = 5-9) TRIGLYCERIDES; 74 mg/dl <150 N Normal (test code = 2571-8) LDL-CHOLESTEROL; 117 {MG/DL Reference r jeannie: Above High Threshold JAX} <100 De sirable range (test code = <100 mg/[place] [address]-8) primary prevent ion; <70 mg/dL for patients with C HD or diabetic patien ts with > or = 2 C HD risk factors. L DL-C is now calculat ed using the Jacque calculation, wh ich is a validated novel method providin g better accuracy than the Friedewald equation in the estimation of L DL-C. Abran SS et al . LEONARDO. 2013;310( 19): 9157-1907 (http://educati on.Nativoo. com/f aq/RBK703) CHOL/HDLC RATIO 3.5 {CALC} <5.0 N (test code = CHOL/HDLC RATIO) NON HDL CHOLESTEROL 134 {MG/DL <130 For zuly ents with (test code = NON HDL JAX} diabete s plus 1 CHOLESTEROL) major ASCVD ris k factor, treatin g to a non-HDL-C goa l of <100 mg/dL (LDL -C of <70 mg/dL) is considered a therapeutic opt ion. [facility]] CMP [id number] 11:26:00 Test Item Value Reference Range Interpretation Comments GLUCOSE; Normal 86 mg/dl 65-139 N Non-fasting (test code = reference inter [place] 1547-9) UREA NITROGEN (BUN) 11 mg/dl 7-25 N (test code = UREA NITROGEN (BUN)) CREATININE (test 0.60 mg/dl 0.50-1.10 N code = CREATININE) eGFR NON- 118 {ML/MIN/1.7} > OR = 60 N SENEGALESE (test code = eGFR NON-) eGFR 137 {ML/MIN/1.7} > OR = 60 N SENEGALESE (test code = eGFR ) BUN/CREATININE NOT [...] mg/dl 0.2-1.2 N Normal (test code = 72410-0) ALKALINE PHSPHATASE 58 u/l 33-115 N (test code = ALKALINE PHSPHATASE) AST; Normal (test 18 u/l 10-30 N code = 1916-6) ALT; Normal (test 12 u/l 6-29 N code = 1742-6) [facility]] TSH, 3RD GENERATION W/REFLEX TO [id number] 11:26:00 Test Item Value Reference Range Interpretation Comments TSH, 3RD GENERATION 0.89 {MIU/L} N Referenc e Range > or W/REFLEX TO FT4 (test = 20 Y ears 0.40-4.50 code = TSH, 3RD R anges GENERATION W/REFLEX First tr imester TO FT4) 0.26-2.66 Secon d trimester 0.55- 2.73 Third trimester 0.43-2.91 [facility]] URINALYSIS, [id number] 16:42:01 Test Item Value Reference Range Interpretation Comments UA Turbidity (test code = 05088-3) Clear Clear UA Spec Grav (test code = 5810-7) 1.003 <=1.030 UA pH (test code = 5803-2) 6.0 5.0-8.0 UA Protein (test code = 06488-8) Negative Negative UA Glucose (test code = 00812-9) Negative Negative UA Ketones (test code = 06449-1) Negative Negative UA Bili (test code = 5770-3) Negative Negative UA Blood (test code = 5794-3) Negative Negative UA Nitrite (test code = 5802-4) Negative Negative UA Leuk Est (test code = 5799-2) Negative Negative UA WBC (test code = 00296-8) <1 0-5 UA Bacteria; Abnormal (test code = Many None Seen A 78788-8) UA Sq Epi (test code = 50678-6) Occasional Few UA Color (test code = 5778-6) Ltyellow UROBILINOGEN (test code = 50888-4) <=1.0 0.1-1.0 [facility]] CULTURE, URINE, [id number] 16:42:01 Test Item Value Reference Range Interpretation Comments FINAL REPORT (test Specimen contains 3 or code = FINAL more potential pathogens; REPORT) recommend correlation withurinalysis; if catheterized specimen recommend removal and recollection. Ifclinical situation warrants please call the laboratory for further testing. COMicrobiology [phone]. [facility][O] Urine Dipstick (In Office)2017-11-30 13:20:00 Test Item Value Reference Range Interpretation Comments Glucose (test code = Glucose) N N LEUKOCYTES (test code = LEUKOCYTES) N N NITRITE; Normal (test code = 05643-4) N N UROBILINOGEN; Normal (test code = N N 62356-2) PROTEIN; Normal (test code = 10975-7) N N pH (test code = pH) 6.0 N URINE BLOOD; Normal (test code = N N 59859-3) SPECIFIC GRAVITY; Normal (test code = 1.015 N 2965-2) KETONES; Normal (test code = 73791-5) N N BILIRUBIN; Normal (test code = N N 41163-9) COLOR URINE; Normal (test code = YELLOW N 5778-6) APPEARANCE; Normal (test code = CLEAR N 5767-9) [facility][O] Urine Dipstick (In Office)2017-08-30 10:11:00 Test Item Value Reference Range Interpretation Comments LEUKOCYTES (test code = LEUKOCYTES) Negative N NITRITE; Normal (test code = Negative N 23936-9) PROTEIN; Normal (test code = Negative N 71187-8) URINE BLOOD; Abnormal (test code = Trace A 17807-5) KETONES; Normal (test code = Negative N 28054-8) GLUCOSE; Normal (test code = 1547-9) Negative N [facility]
--- NOTE | 2022-03-06 18:41 | EDPHYS ---
Physician Documentation [facility] Name: Jenn Horan Age: 37 yrs Sex: Female : 1985 Arrival Date: 03/06/2022 Time: 17:54 Bed 28 Private MD: ED Physician Jon Fernnadez HPI: 03/06 18:37 This 37 yrs old Female presents to ER via Wheelchair with complaints of Foreign Body in m stool. 18:37 The patient presents to the emergency department with diarrhea. Onset: The jmm symptoms/episode began/occurred acutely, today. Possible causes: unknown. This is a 37-year-old female with history cerebral palsy, asthma, GERD the presents emerged department with complaints of multiple episodes of diarrhea. Mother became concerned when she noticed what appeared to be worms and mucus in the stool. Denies any recent travel. Denies any infectious exposure. 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 - Social history:: Smoking status: Patient denies any tobacco usage or history of. Patient/guardian denies using alcohol. ROS: 18:37 Constitutional: Negative for fever, chills, and weight loss, Cardiovascular: Negative jmm for chest pain, palpitations, and edema, Respiratory: Negative for shortness of breath, cough, wheezing, and pleuritic chest pain. 18:37 Abdomen/GI: Positive for diarrhea. 18:37 All other systems are negative. Exam: 18:37 Constitutional: This is a well developed, well nourished patient who is awake, alert, jmm and in no acute distress. Head/Face: atraumatic. Eyes: EOMI, no conjunctival erythema appreciated ENT: Moist Mucus Membranes Neck: Trachea midline, Supple Chest/axilla: Normal chest wall appearance and motion. Cardiovascular: Regular rate and rhythm. No edema appreciated Respiratory: Normal respirations, no respiratory distress appreciated Abdomen/GI: Non distended Back: Normal ROM Skin: General appearance color normal MS/ Extremity: Moves all extremities, no obvious deformities appreciated, no edema noted to the lower extremities Neuro: Awake and alert Psych: Behavior is normal, Mood is normal, Patient is cooperative and pleasant Vital Signs: 18:23 BP 118 / 71; Pulse 68; Resp 18; Temp 98.5(O); Pulse Ox 97% on R/A; Weight 88.9 kg; ld1 Height 5 ft. 8 in. (172.72 cm); Pain 0/10; 20:20 BP 116 / 62; Pulse 61; Resp 18; Pulse Ox 97% on R/A; em6 18:23 Body Mass Index 29.80 (88.90 kg, 172.72 cm) ld1 MDM: 18:37 Patient medically screened. [facility] 18:40 Data reviewed: vital signs, nurses notes. Counseling: I had a detailed discussion with warner the patient and/or guardian regarding: the historical points, exam findings, and any diagnostic results supporting the discharge/admit diagnosis. Refusal of service: The patient/guardian displays adequate decision making capability and despite a detailed discussion of alternatives, benefits, risks, and consequences refuses: all lab tests. 03/06 19:02 Order name: CBC with Diff; Complete Time: 20:33 [facility] 03/06 19:02 Order name: CMP; Complete Time: 20:53 [facility] 03/06 20:33 Order name: CBC Smear Scan; Complete Time: 20:33 EDMS Administered Medications: No medications were administered Disposition: 18:46 Co-signature as Attending Physician, Jon GAY was immediately available onsite ms3 in the emergency department for consultation in the care of the patient. Disposition Summary: 03/06/22 20:53 Discharge Ordered Location: Home(03/06/22 20:53) [facility] Condition: Stable(03/06/22 20:53) [facility] Diagnosis - Diarrhea, unspecified [facility] Followup: [facility] - With: Private Physician - When: 2 - 3 days - Reason: Recheck today's complaints, Continuance of care, Re-evaluation by your physician Discharge Instructions: - Discharge Summary Sheet [facility] Forms: - Medication Reconciliation Form [facility] - Thank You Letter warner - Antibiotic Education warner - Prescription Opioid Use warner Prescriptions: - ivermectin 3 mg Oral tablet - take 6 tablet by ORAL route one time Take 6 tabs PO on day 1, then take 6 tabs jmm PO on day 14; 12 tablet; Refills: 0, Product Selection Permitted Signatures: Dispatcher [employer] EDAshok Arredondo PA PA jmm Sims, Marcus, DO DO ms3 Miriam Arrington RN RN ld1 Corrections: (The following items were deleted from the chart) 19:02 18:40 Home warner [place]ylton 19:02 18:40 Stable warner hylton 19:02 18:40 Person with feared health complaint in whom no diagnosis is made warner hylton
--- NOTE | 2022-03-06 18:41 | ER ---
Nurse's Notes [facility] Name: Jenn Horan Age: 37 yrs Sex: Female : 1985 Arrival Date: 03/06/2022 Time: 17:54 Bed 28 Private MD: Diagnosis: Diarrhea, unspecified Presentation: 03/06 18:23 Chief complaint: Patient states: Mother reports loose bowel movement today - all over ld1 the floor. Mother reports "worms being in stool." Diarrhea since 1400 today. Coronavirus screen: At this time, the client does not indicate any symptoms associated with coronavirus-19. Ebola Screen: No symptoms or risks identified at this time. Initial Sepsis Screen: Does the patient meet any 2 criteria? No. Patient's initial sepsis screen is negative. Does the patient have a suspected source of infection? No. Patient's initial sepsis screen is negative. Risk Assessment: Do you want to hurt yourself or someone else? Patient reports no desire to harm self or others. Onset of symptoms was March 06, 2022 at 18:25. 18:23 Method Of Arrival: Wheelchair ld1 18:23 Acuity: SVETLANA 3 ld1 Triage Assessment: 18:25 General: Appears in no apparent distress. comfortable, Behavior is calm, cooperative, ld1 appropriate for age. Pain: Denies pain. EENT: No signs and/or symptoms were reported regarding the EENT system. Neuro: Level of Consciousness is awake, alert, obeys commands, Oriented to person, place, time, situation. Cardiovascular: Capillary refill < 3 seconds Patient's skin is warm and dry. Respiratory: Airway is patent Respiratory effort is even, unlabored. GI: Abdomen is round non-distended, Parent/caregiver reports the patient having diarrhea. : No signs and/or symptoms were reported regarding the genitourinary system. Derm: No signs and/or symptoms reported regarding the dermatologic system. Musculoskeletal: No signs and/or symptoms reported regarding the musculoskeletal system. 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 - Social history:: Smoking status: Patient denies any tobacco usage or history of. Patient/guardian denies using alcohol. Screenin:19 Abuse screen: Denies threats or abuse. Nutritional screening: No deficits noted. em6 Tuberculosis screening: No symptoms or risk factors identified. Fall Risk Total Mckeon Fall Scale indicates No Risk (0-24 pts). Assessment: 20:19 General: Appears in no apparent distress. Behavior is cooperative. Pain: Denies pain. em6 Neuro: [place] Agitation-Sedation Scale (RASS): 0 - Alert and Calm. Cardiovascular: Patient's skin is warm and dry. Respiratory: Airway is patent Respiratory effort is even, unlabored, Respiratory pattern is regular, symmetrical. GI: Abdomen is non-distended, Bowel sounds present X 4 quads. Abd is soft and non tender X 4 quads. : No signs and/or symptoms were reported regarding the genitourinary system. EENT: No signs and/or symptoms were reported regarding the EENT system. Derm: No signs and/or symptoms reported regarding the dermatologic system. Musculoskeletal: No signs and/or symptoms reported regarding the musculoskeletal system. Vital Signs: 18:23 BP 118 / 71; Pulse 68; Resp 18; Temp 98.5(O); Pulse Ox 97% on R/A; Weight 88.9 kg; ld1 Height 5 ft. 8 in. (172.72 cm); Pain 0/10; 20:20 BP 116 / 62; Pulse 61; Resp 18; Pulse Ox 97% on R/A; em6 18:23 Body Mass Index 29.80 (88.90 kg, 172.72 cm) ld1 ED Course: 17:54 Patient arrived in ED. mr 17:55 Ashok Brito PA is PHCP. jmm 17:55 Jon Fernnadez DO is Attending Physician. [facility] 18:25 Triage completed. ld1 18:25 Arm band placed on right wrist. ld1 20:19 Bed in low position. Call light in reach. Side rails up X 1. Adult w/ patient. Pulse ox em6 on. NIBP on. Warm blanket given. 20:19 Inserted saline lock: 22 gauge in left antecubital area, using aseptic technique. Blood em6 collected. 20:19 CMP Sent. em6 21:29 No provider procedures requiring assistance completed. em6 21:41 IV discontinued, intact, bleeding controlled, No redness/swelling at site. Pressure em6 dressing applied. Administered Medications: No medications were administered Medication: 21:29 VIS not applicable for this client. em6 Outcome: 18:40 Discharge ordered by . warner 20:53 Discharge ordered by . warner 21:41 Discharged to home via wheelchair, with family. 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 medication usage, Demonstrated understanding of instructions, follow-up care, medications, Prescriptions given X 1. 21:41 Patient left the ED. em6 Signatures: Ashok Brito PA PA jmm Rivera, Mary mr Miriam Arrington, RN RN ld1 Millicent Ramirez RN RN em6 Corrections: (The following items were deleted from the chart) 18:27 18:23 Chief complaint: Patient states: Mother reports loose bowel movement today - all ld1 over the floor. Mother reports "worms being in stool." ld1
[2022-03-06 20:28] LABS: Lymphocytes % 37.3 % (15.3-44.8); MCV 84.9 fL (80-100); MPV 8.3 fL (7.6-11.3)
[2022-03-06 20:32] LABS: Platelet Estimate DECR; White Blood Cell Scan OK (OK)
[2022-03-06 20:33] LABS: Blood Morphology Comment NOT SEEN (NOT SEEN)
[2022-03-06 20:52] LABS: Bilirubin Total 0.5 mg/dL (0.2-1.0); Potassium 3.7 mmol/L (3.5-5.1); Protein, Total 7.4 g/dL (6.4-8.2)
[2022-03-06 22:39] VITALS: TEMP 98.5; O2SAT 97
[2022-03-06 22:43] VITALS: BP 116/62
== END 2022-03-06 21:41 | disposition home or self-care (01) ==
LOC: ER 17:50
DX: R19.7 Diarrhea, unspecified (principal); Z88.0 Allergy status to penicillin; Z88.5 Allergy status to narcotic agent; Z88.6 Allergy status to analgesic agent; Z88.8 Allergy status to other drugs, medicaments and biological substances
CPT/HCPCS: 36415; 80053; 85025; 99284

== ENCOUNTER 2023-02-26 12:45 | Emergency (ER) | payer OTHER ==
--- OUTSIDE RECORDS SUMMARY | 2023-02-26 12:53 | XMS REPORT | Continuity of Care Document ---
:1985 Author Organization [facility] t Address [address] [facility] [address] [place] [address] Care Team Providers Name Role Phone PCP, PATIENT DOES NOT HAVE A Primary Care Physician UnavailMK Baptiste Attending Clinician Unavailable JAI SAMUEL Attending Clinician Unavailable MARK CLEMONS Attending Clinician Unavailable NATHALIA CEDENO Attending Clinician Unavailable BLADIMIR CORBETT Attending Clinician Unavailable JOSELO VARGAS Attending Clinician Unavailable BRYON CHERY Attending Clinician Unavailable VLADIMIR NATHAN Attending Clinician Unavailable Lawrence Sanchez Attending Clinician LAWRENCE BARFIELD Attending Clinician Unavailable Unknown, Attending Attending Clinician Unavailable Timoteo Koch PA-C Attending Clinician TIMOTEO KOCH Attending Clinician Unavailable Doctor Unassigned, [place] Attending Clinician Unavailable Lester Tsang MD Attending Clinician Zenaida Mendiola MD Attending Clinician Oxana MARX, Marlene Attending Clinician JAGDEEP STUBBS Attending Clinician Unavailable Margret Vinson MD, Vicente Attending Clinician Arnaud PARKER, Ingrid Attending Clinician Unavailable GABRIEL MOSQUEDA Attending Clinician Unavailable SEB LEBLANC Attending Clinician Unavailable Gigi PARKER, Pancho Attending Clinician Unavailable Kendra Gibbons RN Attending Clinician Unavailable DAVID SANCHEZ Attending Clinician Unavailable Ericka Coley RN Attending Clinician Unavailable Clarissa Montesinos Attending Clinician Unavailable Yrn PARKER, Jones Attending Clinician Unavailable Hilda MARX, Amy Attending Clinician Ratna MARX, Rosio Attending Clinician Bernie Yepez MA Attending Clinician Unavailable Fozia Sidhu MD Attending Clinician Jase PARKER, Neva Attending Clinician Unavailable MARK CLEMONS, YAN Attending Clinician Unavailable JOSELO VARGAS M.D. Attending [...] Date Expiration Date Mino renae [employer] [id number] 2011 2017 00:00:00 00:00:00 [employer] [id number] 2022 PLUS 00:00:00 [employer] Star [id number] [address] [facility] Problems Condition Condition Condition Status Onset Resolution Last Treating Co mments Source Name Details Category Date Date Treatment Clinician Date Right Right Disease Active [facility] shoulder shoulder 1-17 Health pain pain 00:00: 00 Acute pain Acute pain Disease Active 2021-03 U T of right of right 0-18 Health shoulder shoulder 00:00: 00 Adhesive Adhesive Disease Active 2021-03 Last [facility] capsulitis capsulitis 0-18 Assessmen Health of right of right 00:00: t & Plan: shoulder shoulder 00 Formattin g of this note might be different from the original. Reassured today. Recommend a trial of physical therapy to continue. Updated PT note provided today. May follow-up as needed. 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 3 Health 00:00: 00 Intellectu Intellectu Disease Active U T al al 3 Health disability disability 00:00: 00 Urinary Urinary [...] Source Name Type Date Date Clinician NSAIDS Drug Active Swelling Univers (NON-RAFI Class 8- ity of ROIDAL 00:00: [place] ANTI-INF 00 Medical LAMMATOR Branch Y DRUG) PENICILL DRUG Active Hives Univers IN INGREDI 8- ity of 00:00: [place] 00 Medical Branch Nsaids Propensi Active Swelling 2022-0 Univer s (Non-Rafi ty to 11-11 ity of roidal adverse 00:00: [place] Anti-Inf reaction 00 Medica l lammator s Branch y Drug) Penicill Propensi Active Hives 2022-0 Univer s in ty to 11-11 ity of adverse 00:00: [place] reaction 00 Medical s Branch NSAIDS Allergy Active 2021-[address] [facility]: Patient Anti-Inf e 00 Medical [facility] Penicill Allergy Active 2021-[address] [...] Medical Center NSAIDS DA Active MO RASH 2021-0 [facility] ([facility]-Rafi 08-24 [place] 00:00: [place] Anti-Inf 00 Medical [facility] Penicill Propensi Active 2020-0 UT ins ty to 11-17 Health adverse 00:00: reaction 00 s Cefaclor Allergy Active 2020-0 UT to 08-20 Health substanc 00:00: e 00 Hydromor Allergy Active 2020-0 UT phone to 08-20 Health substanc 00:00: e 00 Meperidi Allergy Active 2020-0 UT ne to 08-20 Health substanc 00:00: e 00 Metoclop Allergy Active UT ramide to 08-20 Health substanc 00:00: e 00 Morphine Allergy Active UT to 08-20 Health substanc 00:00: e 00 Nsaids Allergy Active [facility] to 08-20 Health substanc 00:00: e 00 NSAIDS DA Active [facility] Penicill DA Active [facility] [place] morphine DA Active [facility] cefaclor DA Active [facility] [place] clarithr DA Active [facility] Patient [facility] meperidi DA Active [facility] ne [facility] Patient [facility] hydromor DA Active [facility] phone [facility] NO KNOWN Drug Active Univers ALLERGIE Class ity of [facility] Biaxin Allergy Active UT TABS [...] Start Date Stop Date Quantity Comments Source Gender identity [facility] Sexual orientation Univer [facility] History [facility] Health Alcohol Comment Alcohol intake 2022-11-03 2022-11-03 Lifetime [facility] 00:00:00 00:00:00 non-drinker (finding) Exposure to 2022-08-25 2022-09-04 Not sure [facility] SARS-CoV-2 (event) 00:00:00 10:57:00 History SDOH 2021-11-04 2021-11-04 1 [facility] [...] 00:00:00 Tobacco use and 2021-01-20 2021-01-20 Smokeless [facility] exposure 00:00:00 00:00:00 tobacco non-user Cigarette 2021-01-20 2021-01-20 [facility] pack-years 00:00:00 00:00:00 Sex [birth year] Universit y of 00:00:00 00:00:00 [facility] Smoking Status Start Date Stop Date Source Tobacco smoking consumption [facility] Never smoked tobacco [facility] Medications Ordered Filled Start Stop Current Ordering Indication Dosage Frequency Signature Comments Components Source Medication Medication Date Date Medication? Clinician (SIG) Name Name albuterol 2022- No [id number] 2.5mg Un jam (PROVENTIL) 11-26 ity of 2.5 mg /3 17:15: 16:46 [place] mL (0.083 00 :00 Medical %) Branch nebulizer solution 2.5 mg albuterol 2022- No [id number] 2.5mg 2.5 mg, Univers (PROVENTIL) 11-26 Inhalation i ty of 2.5 mg /3 17:15: 16:46 [place] (0.083 00 :00 dose, On Medica l %) 11/26/22 Branch nebulizer at 1215, solution Routine 2.5 mg albuterol Yes [id number] 2{puff} Inhale 2 Univers 90 11-26 Puffs ity of mcg/actuati 00:00: every 6 [place] as on inhaler 00 (six) Medical hours as Branch needed for Wheezing. albuterol Yes [id number] 2{puff} Inhale 2 Univers 90 9-03 Puffs ity of mcg/actuati 00:00: every 6 [place] as on inhaler 00 (six) Medical hours as Branch needed for Wheezing. albuterol Yes [id number] 2{puff} Inhale 2 Univers 90 9-03 Puffs ity of mcg/actuati 00:00: every 6 [place] as on inhaler 00 (six) Medical hours as Branch needed for Wheezing. azithromyci 2022- No [id number] 500mg Take 1 Univers n 500 mg 11-26 tablet by ity o f tablet 00:00: 04:59 mouth in [place] 00 :00 the Medical morning Branch for 5 days. azithromyci 2022- No [id number] 500mg Take 1 Univers n 500 mg 11-26 tablet by ity o f tablet 00:00: 04:59 mouth in [place] 00 :00 the Medical morning Branch for 5 days. ciprofloxac Yes [id number] 4[drp] Place 4 Univers in-dexameth 8-19 [id number] Drops in ity of asone 00:00: right ear [place] 0.3-0.1 % 00 in the Medical otic drops morning Branch and 4 Drops in the evening. ciprofloxac Yes [id number] 4[drp] Place 4 Univers in-dexameth 8-19 [id number] Drops in ity of asone 00:00: right ear [place] 0.3-0.1 % 00 in the Medical otic drops morning Branch and 4 Drops in the evening. ciprofloxac Yes [id number] 4[drp] Place 4 Univers in-dexameth 8-19 [id number] Drops in ity of asone 00:00: right ear [place] 0.3-0.1 % 00 in the Medical otic drops morning Branch and 4 Drops in the evening. ciprofloxac Yes [id number] 4[drp] Place 4 Univers in-dexameth 8-19 [id number] Drops in ity of asone 00:00: right ear [place] 0.3-0.1 % 00 in the Medical otic drops morning Branch and 4 Drops in the evening. LORazepam 2022- Yes [id number] .25mg Take 0.5 UT (Ativan) 5-22 tablets Health 0.5 MG 00:00: (0.25 mg tablet 00 total) by mouth 1 (one) time each day if needed (severe anxiety). May repeat once in 30 minutes if ineffectiv e. FLUoxetine 2022- No [id number] 20mg QD Take 1 UT (PROzac) 20 5-14 11-21 capsule Heal th MG capsule 00:00: 04:59 (20 mg 00 :00 total) by mouth 1 (one) time each day. ARIPiprazol 2022-2022- No [id number] 20mg Take 1 UT e (Abilify) 5-14 11-21 tablet (20 H ealth 20 MG 00:00: 04:59 mg total) tablet 00 :00 by mouth every night. ARIPiprazol 2022-2022- No [id number] 5mg Take 1 UT e (Abilify) 5-22 -21 tablet (5 He alth 5 MG tablet 00:00: 04:59 mg total) 00 :00 by mouth 1 (one) time each day in the morning. FLUoxetine 2022-2022- No [id number] 20mg QD Take 1 UT (PROzac) 20 5-14 11-21 capsule Heal th MG capsule 00:00: 04:59 (20 mg 00 :00 total) by mouth 1 (one) time each day. ARIPiprazol 2022-2022- No [id number] 20mg Take 1 UT e (Abilify) 5-14 11-21 tablet (20 H ealth 20 MG 00:00: 04:59 mg total) tablet 00 :00 by mouth every night. ARIPiprazol 2022-2022- No [id number] 5mg Take 1 UT e (Abilify) 5-22 08-21 tablet (5 He alth 5 MG tablet 00:00: 04:59 mg total) 00 :00 by mouth 1 (one) time each day in the morning. FLUoxetine 2022- No [id number] 20mg QD Take 1 UT (PROzac) 20 5-14 11-21 capsule Heal th MG capsule 00:00: 04:59 (20 mg 00 :00 total) by mouth 1 (one) time each day. ARIPiprazol 2023-0 2022- No [id number] 20mg Take 1 UT e (Abilify) 08-14-21 tablet (20 H ealth 20 MG 00:00: 04:59 mg total) tablet 00 :00 by mouth every night. ARIPiprazol 202-0 2022- No [id number] 5mg Take 1 UT e (Abilify) 08-14- tablet (5 He alth 5 MG tablet 00:00: 04:59 mg total) 00 :00 by mouth 1 (one) time each day in the morning. LORazepam 2022-0 2022- No [id number] .25mg Take 0.5 UT (Ativan) 08-14- tablets Health 0.5 MG 00:00: 00:00 (0.25 mg tablet 00 :00 total) by mouth 1 (one) time each day if needed (severe anxiety). May repeat once in 30 minutes if ineffectiv e. FLUoxetine 3-0 2022- No [id number] 20mg QD Take 1 UT (PROzac) 20 08-14 capsule Heal th MG capsule 00:00: 00:00 (20 mg 00 :00 total) by mouth 1 (one) time each day. ARIPiprazol 2022-0 2022- No [id number] 20mg Take 1 UT e (Abilify) 08-14- tablet (20 H ealth 20 MG 00:00: 00:00 mg total) tablet 00 :00 by mouth every night. ARIPiprazol 2022-0 2022- No [id number] 5mg Take 1 UT e (Abilify) 08-14- tablet (5 He alth 5 MG tablet 00:00: 00:00 mg total) 00 :00 by mouth 1 (one) time each day in the morning. LORazepam 2022-0 2022- No [id number] .25mg Take 0.5 UT (Ativan) 08-14-14 tablets Health 0.5 MG 00:00: 00:00 (0.25 mg tablet 00 :00 total) by mouth 1 (one) time each day if needed (severe anxiety). May repeat once in 30 minutes if ineffectiv e. FLUoxetine 2023-0 2022- No [id number] 20mg QD Take 1 UT (PROzac) 20 08-14-14 capsule Heal th MG capsule 00:00: 00:00 (20 mg 00 :00 total) by mouth 1 (one) time each day. ARIPiprazol 2022-0 2022- No [id number] 20mg Take 1 UT e (Abilify) 08-14-14 tablet (20 H ealth 20 MG 00:00: 00:00 mg total) tablet 00 :00 by mouth every night. ARIPiprazol 2022-0 2022- No [id number] 5mg Take 1 UT e (Abilify) 08-14- tablet (5 He alth 5 MG tablet 00:00: 00:00 mg total) 00 :00 by mouth 1 (one) time each day in the morning. LORazepam 2022-2022- No [id number] .25mg Take 0.5 UT (Ativan) 08-14 tablets Health 0.5 MG 00:00: 00:00 (0.25 mg tablet 00 :00 total) by mouth 1 (one) time each day if needed (severe anxiety). May repeat once in 30 minutes if ineffectiv e. FLUoxetine 2022-0 2022- No [id number] 20mg QD Take 1 UT (PROzac) 20 08-14 capsule Heal th MG capsule 00:00: 00:00 (20 mg 00 :00 total) by mouth 1 (one) time each day. ARIPiprazol 2022-0 2022- No [id number] 20mg Take 1 UT e (Abilify) 08-14- tablet (20 H ealth 20 MG 00:00: 00:00 mg total) tablet 00 :00 by mouth every night. ARIPiprazol 2022-0 2022- No [id number] 5mg Take 1 UT e (Abilify) 08-14- tablet (5 He alth 5 MG tablet 00:00: 00:00 mg total) 00 :00 by mouth 1 (one) time each day in the morning. LORazepam 2022-0 2022- No [id number] .25mg Take 0.5 UT (Ativan) 08-14-22 tablets Health 0.5 MG 00:00: 04:59 (0.25 mg tablet 00 :00 total) by mouth 1 (one) time each day if needed (severe anxiety). May repeat once in 30 minutes if ineffectiv e. LORazepam 2022- No [id number] .25mg Take 0.5 UT (Ativan) 08-14- tablets Health 0.5 MG 00:00: 04:59 (0.25 mg tablet 00 :00 total) by mouth 1 (one) time each day if needed (severe anxiety). May repeat once in 30 minutes if ineffectiv e. sulfamethox 2022- No [id number] 1{tbl} Q.5D Take 1 UT azole-trime 5-30 tablet by He alth thoprim 00:00: 04:59 mouth in (Bactrim 00 :00 the DS) 800-160 morning MG tablet and 1 tablet in the evening. Do all this for 10 days. ARIPiprazol 2022- No [id number] 20mg Take 1 UT e (Abilify) 07-17-22 tablet (20 H ealth 20 MG 00:00: 00:00 mg total) tablet 00 :00 by mouth every night. clopidogrel 2023-0 Yes [id number] 75mg QD Take 1 U T (Plavix) 75 4-11 tablet (75 He alth MG tablet 00:00: mg total) 00 by mouth 1 (one) time each day. TK 1 T PO D clopidogrel 2023-0 Yes [id number] 75mg QD Take 1 U T (Plavix) 75 4-11 tablet (75 He alth MG tablet 00:00: mg total) 00 by mouth 1 (one) time each day. TK 1 T PO D clopidogrel 2023-0 Yes [id number] 75mg QD Take 1 U T (Plavix) 75 4-11 tablet (75 He alth MG tablet 00:00: mg total) 00 by mouth 1 (one) time each day. TK 1 T PO D clopidogrel 2023-0 Yes [id number] 75mg QD Take 1 U T (Plavix) 75 4-11 tablet (75 He alth MG tablet 00:00: mg total) 00 by mouth 1 (one) time each day. TK 1 T PO D clopidogrel 2023-0 Yes [id number] 75mg QD Take 1 U T (Plavix) 75 4-11 tablet (75 He alth MG tablet 00:00: mg total) 00 by mouth 1 (one) time each day. TK 1 T PO D clopidogrel 3-0 Yes [id number] 75mg QD Take 1 U T (Plavix) 75 4-11 tablet (75 He alth MG tablet 00:00: mg total) 00 by mouth 1 (one) time each day. TK 1 T PO D clopidogrel 3-0 Yes [id number] 75mg QD Take 1 U T (Plavix) 75 4-11 tablet (75 He alth MG tablet 00:00: mg total) 00 by mouth 1 (one) time each day. TK 1 T PO D clopidogrel 3-0 Yes [id number] 75mg QD Take 1 U T (Plavix) 75 4-11 tablet (75 He alth MG tablet 00:00: mg total) 00 by mouth 1 (one) time each day. TK 1 T PO D clopidogrel 3-0 2023- No [id number] 75mg QD Take 1 UT (Plavix) 75 3-31 04-11 tablet (75 H ealth MG tablet 00:00: 00:00 mg total) 00 :00 by mouth 1 (one) time each day. TK 1 T PO D Ivabradine 2023-0 Yes [id number] 1{tbl} Q.5D Take 1 UT HCl 2-01 tablet by [facility] 00:00: mouth in 7.5 MG 00 the tablet morning and 1 tablet before bedtime. Ivabradine 2023-0 Yes [id number] 1{tbl} Q.5D Take 1 UT HCl 2-01 tablet by [facility] 00:00: mouth in 7.5 MG 00 the tablet morning and 1 tablet before bedtime. Ivabradine 2023-0 Yes [id number] 1{tbl} Q.5D Take 1 UT HCl 2-01 tablet by [facility] ([facility]) 00:00: mouth in 7.5 MG 00 the tablet morning and 1 tablet before bedtime. Ivabradine 2023-0 Yes [id number] 1{tbl} Q.5D Take 1 UT HCl 2-01 tablet by [facility] ([facility]) 00:00: mouth in 7.5 MG 00 the tablet morning and 1 tablet before bedtime. Ivabradine Yes [id number] 1{tbl} Q.5D Take 1 UT HCl 2-01 tablet by [facility] ([facility]) 00:00: mouth in 7.5 MG 00 the tablet morning and 1 tablet before bedtime. Ivabradine Yes [id number] 1{tbl} Q.5D Take 1 UT HCl 2-01 tablet by [facility] ([facility]) 00:00: mouth in 7.5 MG 00 the tablet morning and 1 tablet before bedtime. Ivabradine Yes [id number] 1{tbl} Q.5D Take 1 UT HCl 2-01 tablet by [facility] ([facility]) 00:00: mouth in 7.5 MG 00 the tablet morning and 1 tablet before bedtime. Ivabradine Yes [id number] 1{tbl} Q.5D Take 1 UT HCl 2-01 tablet by [facility] ([facility]) 00:00: mouth in 7.5 MG 00 the tablet morning and 1 tablet before bedtime. montelukast 2021-03 Yes [id number] 10mg Take 1 UT (Singulair) 2-28 tablet (10 He alth 10 MG 00:00: mg total) tablet 00 by mouth every night. montelukast 2021-03 Yes [id number] 10mg Take 1 UT (Singulair) 2-28 tablet (10 He alth 10 MG 00:00: mg total) tablet 00 by mouth every night. montelukast 2021-03 Yes [id number] 10mg Take 1 UT (Singulair) 2-28 tablet (10 He alth 10 MG 00:00: mg total) tablet 00 by mouth every night. montelukast 2021-03 Yes [id number] 10mg Take 1 UT (Singulair) 2-28 tablet (10 He alth 10 MG 00:00: mg total) tablet 00 by mouth every night. montelukast 2021-03 Yes [id number] 10mg Take 1 UT (Singulair) 2-28 tablet (10 He alth 10 MG 00:00: mg total) tablet 00 by mouth every night. montelukast 2021-03 Yes [id number] 10mg Take 1 UT (Singulair) 2-28 tablet (10 He alth 10 MG 00:00: mg total) tablet 00 by mouth every night. montelukast 2021-03- No [id number] 10mg Take 1 UT (Singulair) 2- 08-11 tablet (10 H ealth 10 MG 00:00: 00:00 mg total) tablet 00 :00 by mouth every night. montelukast 2021-03- No [id number] 10mg Take 1 UT (Singulair) 2- 08-11 tablet (10 H ealth 10 MG 00:00: 00:00 mg total) tablet 00 :00 by mouth every night. montelukast 2021-03- No [id number] 10mg Take 1 UT (Singulair) 2- 08-11 tablet (10 H ealth 10 MG 00:00: 00:00 mg total) tablet 00 :00 by mouth every night. montelukast 2021-03- No [id number] 10mg Take 1 UT (Singulair) 2- 08-11 tablet (10 H ealth 10 MG 00:00: 00:00 mg total) tablet 00 :00 by mouth every night. ketoconazol 2021-03- No [id number] Q.5D Apply UT e (NIZOral) 05-22-04 topically He alth 2 % cream 00:00: 05:59 2 (two) 00 :00 times a day for 7 days. LORazepam 2021-03 Yes [id number] .25mg Take 0.5 UT (Ativan) 1-29 tablets Health 0.5 MG 00:00: (0.25 mg tablet 00 total) by mouth 1 (one) time each day if needed (severe anxiety). May repeat once in 30 minutes if ineffectiv e. LORazepam 2021-03 Yes [id number] .25mg Take 0.5 UT (Ativan) 1-29 tablets Health 0.5 MG 00:00: (0.25 mg tablet 00 total) by mouth 1 (one) time each day if needed (severe anxiety). May repeat once in 30 minutes if ineffectiv e. LORazepam 2021-03 Yes [id number] .25mg Take 0.5 UT (Ativan) 1-29 tablets Health 0.5 MG 00:00: (0.25 mg tablet 00 total) by mouth 1 (one) time each day if needed (severe anxiety). May repeat once in 30 minutes if ineffectiv e. FLUoxetine 2021-03 Yes [id number] 20mg QD Take 1 U T (PROzac) 04-23 capsule Healt h MG capsule 00:00: (20 mg 00 total) by mouth 1 (one) time each day. LORazepam 2021-03- No [id number] .25mg Take 0.5 UT (Ativan) 04-23 tablets Health 0.5 MG 00:00: 00:00 (0.25 mg tablet 00 :00 total) by mouth 1 (one) time each day if needed (severe anxiety). May repeat once in 30 minutes if ineffectiv e. FLUoxetine 2021-03- No [id number] 20mg QD Take 1 UT (PROzac) 20 04-23 capsule Heal th MG capsule 00:00: 00:00 (20 mg 00 :00 total) by mouth 1 (one) time each day. ARIPiprazol 2021-03- No [id number] 20mg Take 1 UT e (Abilify) 04-23 tablet (20 H ealth 20 MG 00:00: 05:59 mg total) tablet 00 :00 by mouth every night. ARIPiprazol 2021-03- No [id number] 5mg Take 1 UT e (Abilify) 04-23 tablet (5 He alth 5 MG tablet 00:00: 05:59 mg total) 00 :00 by mouth 1 (one) time each day in the morning. FLUoxetine 2021-03- No [id number] 20mg QD Take 1 UT (PROzac) 20 04-23 capsule Heal th MG capsule 00:00: 05:59 (20 mg 00 :00 total) by mouth 1 (one) time each day. ARIPiprazol 2021-03- No [id number] 20mg Take 1 UT e (Abilify) 04-23 tablet (20 H ealth 20 MG 00:00: 05:59 mg total) tablet 00 :00 by mouth every night. ARIPiprazol 2021-03- No [id number] 5mg Take 1 UT e (Abilify) 04-23 tablet (5 He alth 5 MG tablet 00:00: 05:59 mg total) 00 :00 by mouth 1 (one) time each day in the morning. FLUoxetine 2021-03- No [id number] 20mg QD Take 1 UT (PROzac) 20 04-23 capsule Heal th MG capsule 00:00: 05:59 (20 mg 00 :00 total) by mouth 1 (one) time each day. ARIPiprazol 2021-03- No [id number] 20mg Take 1 UT e (Abilify) 04-23 tablet (20 H ealth 20 MG 00:00: 05:59 mg total) tablet 00 :00 by mouth every night. ARIPiprazol 2021-03- No [id number] 5mg Take 1 UT e (Abilify) 04-23 tablet (5 He alth 5 MG tablet 00:00: 05:59 mg total) 00 :00 by mouth 1 (one) time each day in the morning. FLUoxetine 2021-03- No [id number] 20mg QD Take 1 UT (PROzac) 20 04-23 capsule Heal th MG capsule 00:00: 05:59 (20 mg 00 :00 total) by mouth 1 (one) time each day. ARIPiprazol 2021-03- No [id number] 20mg Take 1 UT e (Abilify) 04-23 tablet (20 H ealth 20 MG 00:00: 05:59 mg total) tablet 00 :00 by mouth every night. ARIPiprazol 2021-03- No [id number] 5mg Take 1 UT e (Abilify) 04-23 tablet (5 He alth 5 MG tablet 00:00: 05:59 mg total) 00 :00 by mouth 1 (one) time each day in the morning. FLUoxetine 2021-03- No [id number] 20mg QD Take 1 UT (PROzac) 20 04-23 capsule Heal th MG capsule 00:00: 05:59 (20 mg 00 :00 total) by mouth 1 (one) time each day. ARIPiprazol 2021-03- No [id number] 20mg Take 1 UT e (Abilify) 04-23 tablet (20 H ealth 20 MG 00:00: 05:59 mg total) tablet 00 :00 by mouth every night. ARIPiprazol 2021-03- No [id number] 5mg Take 1 UT e (Abilify) 04-23 tablet (5 He alth 5 MG tablet 00:00: 05:59 mg total) 00 :00 by mouth 1 (one) time each day in the morning. FLUoxetine 2021-03- No [id number] 20mg QD Take 1 UT (PROzac) 20 04-23 capsule Heal th MG capsule 00:00: 05:59 (20 mg 00 :00 total) by mouth 1 (one) time each day. ARIPiprazol 2021-03- No [id number] 20mg Take 1 UT e (Abilify) 04-23 tablet (20 H ealth 20 MG 00:00: 05:59 mg total) tablet 00 :00 by mouth every night. ARIPiprazol 2021-03- No [id number] 5mg Take 1 UT e (Abilify) 04-23 tablet (5 He alth 5 MG tablet 00:00: 05:59 mg total) 00 :00 by mouth 1 (one) time each day in the morning. FLUoxetine 2021-03- No [id number] 20mg QD Take 1 UT (PROzac) 20 04-23 capsule Heal th MG capsule 00:00: 05:59 (20 mg 00 :00 total) by mouth 1 (one) time each day. LORazepam 2021-03- No [id number] .25mg Take 0.5 UT (Ativan) 04-23 12-30 tablets Health 0.5 MG 00:00: 05:59 (0.25 mg tablet 00 :00 total) by mouth 1 (one) time each day if needed (severe anxiety). May repeat once in 30 minutes if ineffectiv e. LORazepam 2021-03- No [id number] .25mg Take 0.5 UT (Ativan) 04-23 12-30 tablets Health 0.5 MG 00:00: 05:59 (0.25 mg tablet 00 :00 total) by mouth 1 (one) time each day if needed (severe anxiety). May repeat once in 30 minutes if ineffectiv e. LORazepam 2021-03 No [id number] .25mg Take 0.5 UT (Ativan) 1-29 12-30 tablets Health 0.5 MG 00:00: 05:59 (0.25 mg tablet 00 :00 total) by mouth 1 (one) time each day if needed (severe anxiety). May repeat once in 30 minutes if ineffectiv e. LORazepam 2021-03- No [id number] .25mg Take 0.5 UT (Ativan) 04-23 12-30 tablets Health 0.5 MG 00:00: 05:59 (0.25 mg tablet 00 :00 total) by mouth 1 (one) time each day if needed (severe anxiety). May repeat once in 30 minutes if ineffectiv e. furosemide 2021-03 Yes [id number] 20mg QD Take 1 UT (Lasix) 20 0-11 tablet (20 Hea lth MG tablet 00:00: mg total) 00 by mouth 1 (one) time each day. furosemide 2021-03 Yes [id number] 20mg QD Take 1 UT (Lasix) 20 0-11 tablet (20 Hea lth MG tablet 00:00: mg total) 00 by mouth 1 (one) time each day. furosemide 2021-03 Yes [id number] 20mg QD Take 1 UT (Lasix) 20 0-11 tablet (20 Hea lth MG tablet 00:00: mg total) 00 by mouth 1 (one) time each day. furosemide 2021-03 Yes [id number] 20mg QD Take 1 UT (Lasix) 20 0-11 tablet (20 Hea lth MG tablet 00:00: mg total) 00 by mouth 1 (one) time each day. furosemide 2021-03 Yes [id number] 20mg QD Take 1 UT (Lasix) 20 0-11 tablet (20 Hea lth MG tablet 00:00: mg total) 00 by mouth 1 (one) time each day. furosemide 2021-03 Yes [id number] 20mg QD Take 1 UT (Lasix) 20 0-11 tablet (20 Hea lth MG tablet 00:00: mg total) 00 by mouth 1 (one) time each day. furosemide 2021-03 Yes [id number] 20mg QD Take 1 UT (Lasix) 20 0-11 tablet (20 Hea lth MG tablet 00:00: mg total) 00 by mouth 1 (one) time each day. furosemide 2021-03 Yes [id number] 20mg QD Take 1 UT (Lasix) 20 0-11 tablet (20 Hea lth MG tablet 00:00: mg total) 00 by mouth 1 (one) time each day. furosemide 2021-03 Yes [id number] 20mg QD Take 1 UT (Lasix) 20 0-11 tablet (20 [facility] MG tablet 00:00: mg total) 00 by mouth 1 (one) time each day. furosemide 2021-03 Yes [id number] 20mg QD Take 1 [facility] (Lasix) 20 0-11 tablet (20 [facility] MG tablet 00:00: mg total) 00 by mouth 1 (one) time each day. furosemide 2021-03 Yes [id number] 20mg QD Take 1 [facility] (Lasix) 20 0-11 tablet (20 [facility] MG tablet 00:00: mg total) 00 by mouth 1 (one) time each day. furosemide 2021-03 Yes [id number] 20mg QD Take 1 [facility] (Lasix) 20 0-11 tablet (20 [facility] MG tablet 00:00: mg total) 00 by mouth 1 (one) time each day. furosemide 2021-03 Yes [id number] 20mg QD Take 1 [facility] (Lasix) 20 0-11 tablet (20 [facility] MG tablet 00:00: mg total) 00 by mouth 1 (one) time each day. furosemide 2021-03 Yes [id number] 20mg QD Take 1 [facility] (Lasix) 20 0-11 tablet (20 [facility] MG tablet 00:00: mg total) 00 by mouth 1 (one) time each day. furosemide 2021-03 Yes [id number] 20mg QD Take 1 [facility] (Lasix) 20 0-11 tablet (20 [facility] MG tablet 00:00: mg total) 00 by mouth 1 (one) time each day. furosemide 2021-03 Yes [id number] 20mg QD Take 1 [facility] (Lasix) 20 0-11 tablet (20 [facility] MG tablet 00:00: mg total) 00 by mouth 1 (one) time each day. ofloxacin 2021- No [id number] 4[drp] Q.5D Administer [facility] (Floxin) 9-30 10-08 4 drops Health 0.3 % otic 00:00: 04:59 into each solution 00 :00 ear in the morning and 4 drops in the evening. Do all this for 7 days. Ivabradine 0 Yes [id number] Take 5 mg UT HCl 9-29 by mouth 2 Health (Corlanor) 00:00: (two) 5 MG tablet 00 times a day AND 2.5 mg 2 (two) times a day. Ivabradine 2021-0 Yes [id number] Take 5 mg UT HCl 9-29 by mouth 2 [facility] (Corlanor) 00:00: (two) 5 MG tablet 00 times a day AND 2.5 mg 2 (two) times a day. Ivabradine 2021-0 Yes [id number] Take 5 mg UT HCl 9-29 by mouth 2 [facility] (Corlanor) 00:00: (two) 5 MG tablet 00 times a day AND 2.5 mg 2 (two) times a day. Ivabradine 0 Yes [id number] Take 5 mg UT HCl 9-29 by mouth 2 [facility] (Corlanor) 00:00: (two) 5 MG tablet 00 times a day AND 2.5 mg 2 (two) times a day. Ivabradine 2021-0 Yes [id number] Take 5 mg UT HCl 9-29 by mouth 2 [facility] (Corlanor) 00:00: (two) 5 MG tablet 00 times a day AND 2.5 mg 2 (two) times a day. Ivabradine 0 Yes [id number] Take 5 mg UT HCl 9-29 by mouth 2 [facility] ([facility]lan[facility]) 00:00: (two) 5 MG tablet 00 times a day AND 2.5 mg 2 (two) times a day. Ivabradine 2021-0 Yes [id number] Take 5 mg UT HCl 9-29 by mouth 2 [facility] ([facility]lan[facility]) 00:00: (two) 5 MG tablet 00 times a day AND 2.5 mg 2 (two) times a day. Ivabradine 2021-0 Yes [id number] Take 5 mg UT HCl 9-29 by mouth 2 [facility] ([facility]) 00:00: (two) 5 MG tablet 00 times a day AND 2.5 mg 2 (two) times a day. Ivabradine 2022-0 Yes [id number] Take 5 mg UT HCl 9-29 by mouth 2 [facility] ([facility]) 00:00: (two) 5 MG tablet 00 times a day AND 2.5 mg 2 (two) times a day. Ivabradine 2022-0 Yes [id number] Take 5 mg UT HCl 9-29 by mouth 2 [facility] ([facility]) 00:00: (two) 5 MG tablet 00 times a day AND 2.5 mg 2 (two) times a day. Ivabradine 2022-0 Yes [id number] Take 5 mg UT HCl 9-29 by mouth 2 [facility] ([facility]lan[facility]) 00:00: (two) 5 MG tablet 00 times a day AND 2.5 mg 2 (two) times a day. Ivabradine 2022-0 Yes [id number] Take 5 mg UT HCl 9-29 by mouth 2 [facility] ([facility]) 00:00: (two) 5 MG tablet 00 times a day AND 2.5 mg 2 (two) times a day. Ivabradine 2022-0 Yes [id number] Take 5 mg UT HCl 9-29 by mouth 2 [facility] ([facility]lan[facility]) 00:00: (two) 5 MG tablet 00 times a day AND 2.5 mg 2 (two) times a day. Ivabradine 2022-0 Yes [id number] Take 5 mg UT HCl 9-29 by mouth 2 [facility] ([facility]lan[facility]) 00:00: (two) 5 MG tablet 00 times a day AND 2.5 mg 2 (two) times a day. Ivabradine 2022-0 Yes [id number] Take 5 mg UT HCl 9-29 by mouth 2 [facility] ([facility]lan[facility]) 00:00: (two) 5 MG tablet 00 times a day AND 2.5 mg 2 (two) times a day. Ivabradine 2022-0 Yes [id number] Take 5 mg UT HCl 9-29 by mouth 2 [facility] ([facility]) 00:00: (two) 5 MG tablet 00 times a day AND 2.5 mg 2 (two) times a day. Ivabradine 2022-0 Yes [id number] Take 5 mg UT HCl 9-29 by mouth 2 [facility] ([facility]) 00:00: (two) 5 MG tablet 00 times a day AND 2.5 mg 2 (two) times a day. diphenhydrA 2-0 Yes QD Take by [facility] 9-First Aid Shot Therapy mouth at [facility] (BENADryl) 13:06: night if 25 MG 31 needed for tablet itching. diphenhydrA 2-0 Yes QD Take by [facility] 9-27 mouth at [facility] (BENADryl) 13:06: night if 25 MG 31 needed for tablet itching. diphenhydrA 2021-0 Yes QD Take by [facility] 9-First Aid Shot Therapy mouth at [facility] (BENADryl) 13:06: night if 25 MG 31 needed for tablet itching. diphenhydrA 2021-0 Yes QD Take by [facility] 9-First Aid Shot Therapy mouth at [facility] (BENADryl) 13:06: night if 25 MG 31 needed for tablet itching. diphenhydrA 2021-0 Yes QD Take by [facility] 9First Aid Shot Therapy mouth at [facility] (BENADryl) 13:06: night if 25 MG 31 needed for tablet itching. diphenhydrA 2021-0 Yes QD Take by [employer] mouth at [facility] (BENADryl) 13:06: night if 25 MG 31 needed for tablet itching. diphenhydrA 2021-0 Yes QD Take by [facility]-First Aid Shot Therapy mouth at [facility] (BENADryl) 13:06: night if 25 MG 31 needed for tablet itching. diphenhydrA 2021-0 Yes QD Take by [facility] 9First Aid Shot Therapy mouth at [facility] (BENADryl) 13:06: night if 25 MG 31 needed for tablet itching. diphenhydrA 2-0 Yes QD Take by [facility] 9-First Aid Shot Therapy mouth at [facility] (BENADryl) 13:06: night if 25 MG 31 needed for tablet itching. diphenhydrA 2022-0 Yes QD Take by [facility] 9-First Aid Shot Therapy mouth at [facility] (BENADryl) 13:06: night if 25 MG 31 needed for tablet itching. diphenhydrA 2022-0 Yes QD Take by [facility] 9-27 mouth at [facility] (BENADryl) 13:06: night if 25 MG 31 needed for tablet itching. diphenhydrA 2-0 Yes QD Take by [facility] 9-First Aid Shot Therapy mouth at [facility] (BENADryl) 13:06: night if 25 MG 31 needed for tablet itching. diphenhydrA 2021-0 Yes QD Take by [facility] MINE 9-27 mouth at Health (BENADryl) 13:06: night if 25 MG 31 needed for tablet itching. diphenhydrA 2021-0 Yes QD Take by [facility] MINE 9-27 mouth at Health (BENADryl) 13:06: night if 25 MG 31 needed for tablet itching. diphenhydrA 2021-0 Yes QD Take by [facility] MINE 9-27 mouth at Health (BENADryl) 13:06: night if 25 MG 31 needed for tablet itching. diphenhydrA 2021-0 Yes QD Take by [facility] MINE 9-27 mouth at Health (BENADryl) 13:06: night if 25 MG 31 needed for tablet itching. diphenhydrA 2021-0 Yes QD Take by [facility] MINE 9-27 mouth at Health (BENADryl) 13:06: night if 25 MG 31 needed for tablet itching. FLUoxetine 2021- No [id number] 20mg QD Take 1 UT (PROzac) 20 12-20 capsule [facility] MG capsule 00:00: 05:59 (20 mg 00 :00 total) by mouth 1 (one) time each day. ARIPiprazol 2021- No [id number] 20mg Take 1 UT e (Abilify) 12-20 tablet (20 H ealth 20 MG 00:00: 05:59 mg total) tablet 00 :00 by mouth every night. ARIPiprazol 2021- No [id number] 5mg Take 1 UT e (Abilify) 12-20 tablet (5 [facility] 5 MG tablet 00:00: 05:59 mg total) 00 :00 by mouth 1 (one) time each day in the morning. FLUoxetine 2021- No [id number] 20mg QD Take 1 UT (PROzac) 20 12-20 capsule [facility] MG capsule 00:00: 05:59 (20 mg 00 :00 total) by mouth 1 (one) time each day. ARIPiprazol 2021- No [id number] 20mg Take 1 UT e (Abilify) 12-20 tablet (20 [facility] ealth 20 MG 00:00: 05:59 mg total) tablet 00 :00 by mouth every night. ARIPiprazol 2021- No [id number] 5mg Take 1 UT e (Abilify) 12-20 tablet (5 [facility] 5 MG tablet 00:00: 05:59 mg total) 00 :00 by mouth 1 (one) time each day in the morning. FLUoxetine 2021- No [id number] 20mg QD Take 1 UT (PROzac) 20 12-20 capsule [facility] MG capsule 00:00: 05:59 (20 mg 00 :00 total) by mouth 1 (one) time each day. ARIPiprazol 2021- No [id number] 20mg Take 1 UT e (Abilify) 12-20 tablet (20 [facility] ealth 20 MG 00:00: 05:59 mg total) tablet 00 :00 by mouth every night. ARIPiprazol 2021- No [id number] 5mg Take 1 UT e (Abilify) 12-20 tablet (5 [facility] 5 MG tablet 00:00: 05:59 mg total) 00 :00 by mouth 1 (one) time each day in the morning. azithromyci Yes TAKE 2 UT n 9-23 TABLETS BY Health (Zithromax) 00:00: MOUTH 250 MG 00 TODAY, tablet THEN TAKE 1 TABLET DAILY FOR 4 DAYS azithromyci Yes TAKE 2 UT n 9-23 TABLETS BY Health (Zithromax) 00:00: MOUTH 250 MG 00 TODAY, tablet THEN TAKE 1 TABLET DAILY FOR 4 DAYS azithromyci Yes TAKE 2 UT n 9-23 TABLETS BY Health (Zithromax) 00:00: MOUTH 250 MG 00 TODAY, tablet THEN TAKE 1 TABLET DAILY FOR 4 DAYS diphenhydrA Yes QD Take by [facility]INE 8-12 mouth at [facility] (BENADryl) 11:24: night if 25 MG 00 needed for tablet itching. diphenhydrA Yes QD Take by [facility]INE 8-12 mouth at [facility] (BENADryl) 11:24: night if 25 MG 00 needed for tablet itching. nystatin 2021- No [id number] Q.5D Apply UT (Mycostatin 11-0420 topically [facility] ) cream 00:00: 04:59 2 (two) 00 :00 times a day for 7 days. predniSONE 2021- No [id number] 40mg QD Take 2 UT (Deltasone) 11-04 9109 tablets Heal th 20 MG 00:00: 04:59 (40 mg tablet 00 :00 total) by mouth 1 (one) time each day for 5 days. diazePAM Yes TAKE 1 UT (Valium) 2 7-21 TABLET (2 [facility] MG tablet 00:00: MG TOTAL) 00 BY MOUTH 1 (ONE) TIME EACH DAY IF NEEDED FOR ANXIETY. diazePAM Yes TAKE 1 UT (Valium) 2 7-21 TABLET (2 [facility] MG tablet 00:00: MG TOTAL) 00 BY MOUTH 1 (ONE) TIME EACH DAY IF NEEDED FOR ANXIETY. lurasidone Yes [id number] 20mg QD Take 1 U T (Latuda) [...] IF NEEDED FOR ANXIETY. ARIPiprazol 2021- No [id number] 20mg QD Take 1 UT e (Abilify) 7-21 10-20 tablet (20 H ealth 20 MG 00:00: 04:59 mg total) tablet 00 :00 by mouth 1 (one) time each day. FLUoxetine 2021- No [id number] 20mg QD Take 1 UT (PROzac) 20 7-21 10-20 capsule [facility] MG capsule 00:00: 04:59 (20 mg 00 :00 total) by mouth 1 (one) time each day. ARIPiprazol No [id number] 20mg QD Take 1 UT e (Abilify) 7-21 10-20 tablet (20 H ealth 20 MG 00:00: 04:59 mg total) tablet 00 :00 by mouth 1 (one) time each day. FLUoxetine No [id number] 20mg QD Take 1 UT (PROzac) 20 7-21 10-20 capsule [facility]al [facility] MG capsule 00:00: 04:59 (20 mg 00 :00 total) by mouth 1 (one) time each day. ARIPiprazol No [id number] 20mg QD Take 1 UT e (Abilify) 7-21 10-20 tablet (20 H ealth 20 MG 00:00: 04:59 mg total) tablet 00 :00 by mouth 1 (one) time each day. FLUoxetine No [id number] 20mg QD Take 1 UT (PROzac) 20 7-21 10-20 capsule [facility]al th MG capsule 00:00: 04:59 (20 mg 00 :00 total) by mouth 1 (one) time each day. ARIPiprazol No [id number] 5mg QD Take 1 UT e (Abilify) 7- 08-21 tablet (5 [facility] alth 5 MG tablet 00:00: 04:59 mg total) 00 :00 by mouth 1 (one) time each day. (Take with Aripiprazo le 20 mg to total aripripraz ole 25 mg daily). lurasidone 2021- No [id number] 20mg QD Take 1 UT (Latuda) 20 7-21 08-21 tablet (20 [facility] ealth MG tablet 00:00: 04:59 mg total) 00 :00 by mouth 1 (one) time each day. With food. ARIPiprazol 2021- No [id number] 5mg QD Take 1 UT e (Abilify) 10-13- tablet (5 [facility] al[facility] 5 MG tablet 00:00: 04:59 mg total) 00 :00 by mouth 1 (one) time each day. (Take with Aripiprazo le 20 mg to total aripripraz ole 25 mg daily). lurasidone 2021- No [id number] 20mg QD Take 1 UT (Latuda) 20 -13 11- tablet (20 [facility] ealth MG tablet 00:00: 04:59 mg total) 00 :00 by mouth 1 (one) time each day. With food. Ivabradine 2021- No [id number] Take 2.5 UT HCl 6-15 08-13 mg by [facility] ([facility]) 00:00: 04:59 mouth 2 5 MG tablet 00 :00 (two) times a day for 14 days, THEN 5 mg 2 (two) times a day for 14 days, THEN 7.5 mg 2 (two) times a day. Ivabradine 2021- No [id number] Take 2.5 UT HCl 6-15 08-13 mg by [facility] ([facility]) 00:00: 04:59 mouth 2 5 MG tablet 00 :00 (two) times a day for 14 days, THEN 5 mg 2 (two) times a day for 14 days, THEN 7.5 mg 2 (two) times a day. albuterol 2021-0 Yes [id number] 2.5mg Q6H Take 3 mL UT (2.5 6-14 (2.5 mg Health MG/3ML) 00:00: total) by 0.083% 00 nebulizati nebulizer on every 6 solution (six) hours if needed for wheezing or shortness of breath. ipratropium 2021-0 Yes [id number] .5mg Take 2.5 UT (Atrovent) 6-14 mL (0.5 mg [facility] 0.02 % 00:00: total) by nebulizer 00 nebulizati solution on 4 (four) times a day if needed for wheezing or shortness of breath. albuterol 2021-0 Yes [id number] 2.5mg Q6H Take 3 mL UT (2.5 6-14 (2.5 mg Health MG/3ML) 00:00: total) by 0.083% 00 nebulizati nebulizer on every 6 solution (six) hours if needed for wheezing or shortness of breath. ipratropium 2022-0 Yes [id number] .5mg Take 2.5 UT (Atrovent) 6-14 mL (0.5 mg [facility] 0.02 % 00:00: total) by nebulizer 00 nebulizati solution on 4 (four) times a day if needed for wheezing or shortness of breath. albuterol 2-0 Yes [id number] 2.5mg Q6H Take 3 mL UT (2.5 6-14 (2.5 mg Health MG/3ML) 00:00: total) by 0.083% 00 nebulizati nebulizer on every 6 solution (six) hours if needed for wheezing or shortness of breath. ipratropium 2-0 Yes [id number] .5mg Take 2.5 UT (Atrovent) 6-14 mL (0.5 mg [facility] 0.02 % 00:00: total) by nebulizer 00 nebulizati solution on 4 (four) times a day if needed for wheezing or shortness of breath. albuterol 2-0 Yes [id number] 2.5mg Q6H Take 3 mL UT (2.5 6-14 (2.5 mg Health MG/3ML) 00:00: total) by 0.083% 00 nebulizati nebulizer on every 6 solution (six) hours if needed for wheezing or shortness of breath. ipratropium 2022-0 Yes [id number] .5mg Take 2.5 UT (Atrovent) 6-14 mL (0.5 mg [facility] 0.02 % 00:00: total) by nebulizer 00 nebulizati solution on 4 (four) times a day if needed for wheezing or shortness of breath. albuterol 2-0 Yes [id number] 2.5mg Q6H Take 3 mL UT (2.5 6-14 (2.5 mg Health MG/3ML) 00:00: total) by 0.083% 00 nebulizati nebulizer on every 6 solution (six) hours if needed for wheezing or shortness of breath. ipratropium 2022-0 Yes [id number] .5mg Take 2.5 UT (Atrovent) 6-14 mL (0.5 mg [facility] 0.02 % 00:00: total) by nebulizer 00 nebulizati solution on 4 (four) times a day if needed for wheezing or shortness of breath. albuterol 2022-0 Yes [id number] 2.5mg Q6H Take 3 mL UT (2.5 6-14 (2.5 mg Health MG/3ML) 00:00: total) by 0.083% 00 nebulizati nebulizer on every 6 solution (six) hours if needed for wheezing or shortness of breath. ipratropium 2-0 Yes [id number] .5mg Take 2.5 UT (Atrovent) 6-14 mL (0.5 mg [facility] 0.02 % 00:00: total) by nebulizer 00 nebulizati solution on 4 (four) times a day if needed for wheezing or shortness of breath. albuterol 2-0 Yes [id number] 2.5mg Q6H Take 3 mL UT (2.5 6-14 (2.5 mg Health MG/3ML) 00:00: total) by 0.083% 00 nebulizati nebulizer on every 6 solution (six) hours if needed for wheezing or shortness of breath. ipratropium 2-0 Yes [id number] .5mg Take 2.5 UT (Atrovent) 6-14 mL (0.5 mg [facility] 0.02 % 00:00: total) by nebulizer 00 nebulizati solution on 4 (four) times a day if needed for wheezing or shortness of breath. albuterol 2022-0 Yes [id number] 2.5mg Q6H Take 3 mL UT (2.5 6-14 (2.5 mg Health MG/3ML) 00:00: total) by 0.083% 00 nebulizati nebulizer on every 6 solution (six) hours if needed for wheezing or shortness of breath. ipratropium 2022-0 Yes [id number] .5mg Take 2.5 UT (Atrovent) 6-14 mL (0.5 mg [facility] 0.02 % 00:00: total) by nebulizer 00 nebulizati solution on 4 (four) times a day if needed for wheezing or shortness of breath. albuterol 2-0 Yes [id number] 2.5mg Q6H Take 3 mL UT (2.5 6-14 (2.5 mg Health MG/3ML) 00:00: total) by 0.083% 00 nebulizati nebulizer on every 6 solution (six) hours if needed for wheezing or shortness of breath. ipratropium 2022-0 Yes [id number] .5mg Take 2.5 UT (Atrovent) 6-14 mL (0.5 mg [facility] 0.02 % 00:00: total) by nebulizer 00 nebulizati solution on 4 (four) times a day if needed for wheezing or shortness of breath. albuterol 2021-0 Yes [id number] 2.5mg Q6H Take 3 mL UT (2.5 6-14 (2.5 mg Health MG/3ML) 00:00: total) by 0.083% 00 nebulizati nebulizer on every 6 solution (six) hours if needed for wheezing or shortness of breath. ipratropium 2-0 Yes [id number] .5mg Take 2.5 UT (Atrovent) 6-14 mL (0.5 mg [facility] 0.02 % 00:00: total) by nebulizer 00 nebulizati solution on 4 (four) times a day if needed for wheezing or shortness of breath. albuterol 2-0 Yes [id number] 2.5mg Q6H Take 3 mL UT (2.5 6-14 (2.5 mg Health MG/3ML) 00:00: total) by 0.083% 00 nebulizati nebulizer on every 6 solution (six) hours if needed for wheezing or shortness of breath. ipratropium 2022-0 Yes [id number] .5mg Take 2.5 UT (Atrovent) 6-14 mL (0.5 mg [facility] 0.02 % 00:00: total) by nebulizer 00 nebulizati solution on 4 (four) times a day if needed for wheezing or shortness of breath. albuterol 2-0 Yes [id number] 2.5mg Q6H Take 3 mL UT (2.5 6-14 (2.5 mg Health MG/3ML) 00:00: total) by 0.083% 00 nebulizati nebulizer on every 6 solution (six) hours if needed for wheezing or shortness of breath. ipratropium 2-0 Yes [id number] .5mg Take 2.5 UT (Atrovent) 6-14 mL (0.5 mg [facility] 0.02 % 00:00: total) by nebulizer 00 nebulizati solution on 4 (four) times a day if needed for wheezing or shortness of breath. albuterol 2021-0 Yes [id number] 2.5mg Q6H Take 3 mL UT (2.5 6-14 (2.5 mg Health MG/3ML) 00:00: total) by 0.083% 00 nebulizati nebulizer on every 6 solution (six) hours if needed for wheezing or shortness of breath. ipratropium 2021-0 Yes [id number] .5mg Take 2.5 UT (Atrovent) 6-14 mL (0.5 mg [facility] 0.02 % 00:00: total) by nebulizer 00 nebulizati solution on 4 (four) times a day if needed for wheezing or shortness of breath. albuterol 2021-0 Yes [id number] 2.5mg Q6H Take 3 mL UT (2.5 6-14 (2.5 mg Health MG/3ML) 00:00: total) by 0.083% 00 nebulizati nebulizer on every 6 solution (six) hours if needed for wheezing or shortness of breath. ipratropium 2-0 Yes [id number] .5mg Take 2.5 UT (Atrovent) 6-14 mL (0.5 mg [facility] 0.02 % 00:00: total) by nebulizer 00 nebulizati solution on 4 (four) times a day if needed for wheezing or shortness of breath. albuterol 2021-0 Yes [id number] 2.5mg Q6H Take 3 mL UT (2.5 6-14 (2.5 mg Health MG/3ML) 00:00: total) by 0.083% 00 nebulizati nebulizer on every 6 solution (six) hours if needed for wheezing or shortness of breath. ipratropium 2-0 Yes [id number] .5mg Take 2.5 UT (Atrovent) 6-14 mL (0.5 mg [facility]a lth 0.02 % 00:00: total) by nebulizer 00 nebulizati solution on 4 (four) times a day if needed for wheezing or shortness of breath. albuterol 2021-0 Yes [id number] 2.5mg Q6H Take 3 mL UT (2.5 6-14 (2.5 mg Health MG/3ML) 00:00: total) by 0.083% 00 nebulizati nebulizer on every 6 solution (six) hours if needed for wheezing or shortness of breath. ipratropium 2021-0 Yes [id number] .5mg Take 2.5 UT (Atrovent) 6-14 mL (0.5 mg [facility]a lth 0.02 % 00:00: total) by nebulizer 00 nebulizati solution on 4 (four) times a day if needed for wheezing or shortness of breath. albuterol 2021-0 Yes [id number] 2.5mg Q6H Take 3 mL UT (2.5 6-14 (2.5 mg Health MG/3ML) 00:00: total) by 0.083% 00 nebulizati nebulizer on every 6 solution (six) hours if needed for wheezing or shortness of breath. ipratropium 2021-0 Yes [id number] .5mg Take 2.5 UT (Atrovent) 6-14 mL (0.5 mg [facility]a [facility]th 0.02 % 00:00: total) by nebulizer 00 nebulizati solution on 4 (four) times a day if needed for wheezing or shortness of breath. albuterol 2021-0 Yes [id number] 2.5mg Q6H Take 3 mL UT (2.5 6-14 (2.5 mg Health MG/3ML) 00:00: total) by 0.083% 00 nebulizati nebulizer on every 6 solution (six) hours if needed for wheezing or shortness of breath. ipratropium 2022-0 Yes [id number] .5mg Take 2.5 UT (Atrovent) 6-14 mL (0.5 mg [facility]a lth 0.02 % 00:00: total) by nebulizer 00 nebulizati solution on 4 (four) times a day if needed for wheezing or shortness of breath. albuterol 2022-0 Yes [id number] 2.5mg Q6H Take 3 mL UT (2.5 6-14 (2.5 mg Health MG/3ML) 00:00: total) by 0.083% 00 nebulizati nebulizer on every 6 solution (six) hours if needed for wheezing or shortness of breath. ipratropium 2022-0 Yes [id number] .5mg Take 2.5 UT (Atrovent) 6-14 mL (0.5 mg Hea lth 0.02 % 00:00: total) by nebulizer 00 nebulizati solution on 4 (four) times a day if needed for wheezing or shortness of breath. albuterol 2-0 Yes [id number] 2.5mg Q6H Take 3 mL UT (2.5 6-14 (2.5 mg Health MG/3ML) 00:00: total) by 0.083% 00 nebulizati nebulizer on every 6 solution (six) hours if needed for wheezing or shortness of breath. ipratropium 2-0 Yes [id number] .5mg Take 2.5 UT (Atrovent) 6-14 mL (0.5 mg [facility]a lth 0.02 % 00:00: total) by nebulizer 00 nebulizati solution on 4 (four) times a day if needed for wheezing or shortness of breath. albuterol 2022-0 Yes [id number] 2.5mg Q6H Take 3 mL UT (2.5 6-14 (2.5 mg Health MG/3ML) 00:00: total) by 0.083% 00 nebulizati nebulizer on every 6 solution (six) hours if needed for wheezing or shortness of breath. ipratropium 2022-0 Yes [id number] .5mg Take 2.5 UT (Atrovent) 6-14 mL (0.5 mg [facility]a lth 0.02 % 00:00: total) by nebulizer 00 nebulizati solution on 4 (four) times a day if needed for wheezing or shortness of breath. Ivabradine 2021- No [id number] Take 2.5 UT HCl 09-01 08-07 mg by [facility] ([facility]) 00:00: 04:59 mouth 2 5 MG [...] Hfa) 90 Mcg Hfa) 90 Mcg 00 [facility] HFA.AER.AD HFA.AER.AD Jennifer ter Albuterol/I Albuterol/I Yes 3 Rt Q4h as [facility] pratropium pratropium 6-08 needed for [facility] Nebulize Nebulize 10:26: Shortness Patient 00 [facility] Ascorbic Ascorbic Yes [address] [facility] Acid Acid 6-08 Day [facility] 10:26: Patient 00 [facility] Azithromyci Azithromyci Yes [address] [facility] n (Z-Jordan) n (Z-Jordan) 608 [facility] 250 Mg 250 Mg 10:26: Patient TABLET TABLET 00 [facility] Cholecalcif Cholecalcif Yes [address] [facility] nick nick 6-08 [facility] 10:26: Patient 00 [facility] Docusate Docusate Yes [address] [facility] Sodium Sodium 6-08 Times A [facility] 10:26: Day Patient 00 [facility] Guaifenesin Guaifenesin Yes [address] [facility] (Mucinex) (Mucinex) 6-08 Day [facility] 600 Mg 600 Mg 10:26: Patient TABLET.ER [facility]T.ER [facility] Nirmatrelvi Nirmatrelvi 2022-0 Yes 3 Every [address] [facility] r/Ritonavir r/Ritonavir 6-08 Hours [facility] (Paxlovid (Paxlovid 10:26: Pat ient Co-Pack Co-Pack 00 Medical (Eua)) 150 (Eua)) [address] Mg X 2-100 Mg X 2-100 Mg TABLET Mg TABLET Pantoprazol Pantoprazol 2021-0 Yes [address] [facility] e Sod e Sod 6-08 [facility] (Protonix) (Protonix) 10:26: P atient 40 Mg SUSP 40 Mg SUSP 00 [facility] Center Zinc Zinc 2021-0 Yes [address] [facility] Sulfate Sulfate 6-08 [facility] 10:26: Patient 00 [facility] Paxlovid 2021-0 Yes 3{tbl} Q12H Take 3 UT 6-08 tablets by Health 00:00: mouth 00 every 12 (twelve) hours. pantoprazol 2021-0 Yes 40mg QD Take 40 mg UT e 6-08 by mouth 1 Health (ProtoNix) 00:00: (one) time 40 MG EC 00 each day. tablet Zinc 2021-0 Yes 1{tbl} QD Take 1 UT Sulfate 220 6-08 tablet by Hea lth (50 Zn) MG 00:00: mouth 1 tablet 00 (one) time each day. Paxlovid 2021-0 Yes 3{tbl} Q12H Take 3 UT 6-08 tablets by [facility] 00:00: mouth 00 every 12 (twelve) hours. pantoprazol 2021-0 Yes 40mg QD Take 40 mg UT e 6-08 by mouth 1 [facility] ([employer]) 00:00: (one) time 40 MG EC 00 each day. tablet Zinc 2-0 Yes 1{tbl} QD Take 1 [facility] Sulfate 220 6-08 tablet by [facility] (50 Zn) MG 00:00: mouth 1 tablet 00 (one) time each day. pantoprazol 2022-0 Yes Daily UT e 6-08 [facility] ([employer]) 00:00: 40 MG 00 packet zinc 2022-0 Yes Daily UT sulfate 1 6-08 Health MG/ML 00:00: injection 00 Paxlovid 2-0 Yes 3{tbl} Q12H Take 3 UT 6-08 [...] 1 UT Sulfate 220 6-08 tablet by a [facility] (50 Zn) MG 00:00: mouth 1 tablet [...] 1 UT Sulfate 220 6-08 tablet by a [facility] (50 Zn) MG 00:00: mouth 1 tablet 00 (one) time each day. Paxlovid 2022-0 Yes 3{tbl} Q12H Take 3 UT 6-08 tablets by Health 00:00: mouth 00 every 12 (twelve) hours. Zinc 2022-0 Yes 1{tbl} QD Take 1 [facility] Sulfate 220 6-08 tablet by [facility] (50 Zn) MG 00:00: mouth 1 tablet 00 (one) time each day. Paxlovid 2022-0 Yes 3{tbl} Q12H Take 3 UT 6-08 tablets by [facility] 00:00: mouth 00 every 12 (twelve) hours. Zinc 2022-0 Yes 1{tbl} QD Take 1 [facility] Sulfate 220 6-08 tablet by [facility] (50 Zn) MG 00:00: mouth 1 tablet 00 (one) time each day. Paxlovid 2022-0 Yes 3{tbl} Q12H Take 3 UT 6-08 tablets by Health 00:00: mouth 00 every 12 (twelve) hours. Zinc 2022-0 Yes 1{tbl} QD Take 1 [facility] Sulfate 220 6-08 tablet by [facility] (50 Zn) MG 00:00: mouth 1 tablet 00 (one) time each day. Paxlovid 2022-0 Yes 3{tbl} Q12H Take 3 UT 6-08 tablets by [facility] 00:00: mouth 00 every 12 (twelve) hours. Zinc 2022-0 Yes 1{tbl} QD Take 1 [facility] Sulfate 220 6-08 tablet by [facility] (50 Zn) MG 00:00: mouth 1 tablet 00 (one) time each day. Paxlovid 2022-0 Yes 3{tbl} Q12H Take 3 UT 6-08 tablets by [facility] 00:00: mouth 00 every 12 (twelve) hours. Zinc 2022-0 Yes 1{tbl} QD Take 1 [facility] Sulfate 220 6-08 tablet by [facility] (50 Zn) MG 00:00: mouth 1 tablet 00 (one) time each day. Paxlovid 2022-0 Yes 3{tbl} Q12H Take 3 UT 6-08 tablets by [facility] 00:00: mouth 00 every 12 (twelve) hours. Zinc 2022-0 Yes 1{tbl} QD Take 1 [facility] Sulfate 220 6-08 tablet by [facility] (50 Zn) MG 00:00: mouth 1 tablet 00 (one) time each day. Paxlovid 2022-0 Yes 3{tbl} Q12H Take 3 UT 6-08 tablets by [facility] 00:00: mouth 00 every 12 (twelve) hours. Zinc 2022-0 Yes 1{tbl} QD Take 1 [facility] Sulfate 220 6-08 tablet by [facility] (50 Zn) MG 00:00: mouth 1 tablet 00 (one) time each day. Paxlovid 2022-0 Yes 3{tbl} Q12H Take 3 UT 6-08 tablets by [facility] 00:00: mouth 00 every 12 (twelve) hours. Zinc 2022-0 Yes 1{tbl} QD Take 1 [facility] Sulfate 220 6-08 tablet by [facility] (50 Zn) MG 00:00: mouth 1 tablet 00 (one) time each day. Paxlovid 2022-0 Yes 3{tbl} Q12H Take 3 UT 6-08 tablets by [facility] 00:00: mouth 00 every 12 (twelve) hours. Zinc 2022-0 Yes 1{tbl} QD Take 1 [facility] Sulfate 220 6-08 tablet by [facility] (50 Zn) MG 00:00: mouth 1 tablet 00 (one) time each day. Zinc 2022-0 Yes 1{tbl} QD Take 1 [facility] Sulfate 220 6-08 tablet by [facility] (50 Zn) MG 00:00: mouth 1 tablet 00 (one) time each day. Zinc 2022-0 Yes 1{tbl} QD Take 1 [facility] Sulfate 220 6-08 tablet by [facility] (50 Zn) MG 00:00: mouth 1 tablet 00 (one) time each day. Zinc 2022-0 Yes 1{tbl} QD Take 1 [facility] Sulfate 220 6-08 tablet by [facility] (50 Zn) MG 00:00: mouth 1 tablet 00 (one) time each day. Zinc 2022-0 Yes 1{tbl} QD Take 1 [facility] Sulfate 220 6-08 tablet by [facility] (50 Zn) MG 00:00: mouth 1 tablet 00 (one) time each day. Paxlovid 2022-0 2023- No 3{tbl} Q12H Take 3 UT 6-08 08-11 tablets by [facility] 00:00: 00:00 mouth 00 :00 every 12 (twelve) hours. Paxlovid 2022-0 2023- No 3{tbl} Q12H Take 3 UT 6-08 08-11 tablets by Health 00:00: 00:00 mouth 00 :00 every 12 (twelve) hours. Paxlovid 2022-0 2023- No 3{tbl} Q12H Take 3 UT 6-08 08-11 tablets by Health 00:00: 00:00 mouth 00 :00 every 12 (twelve) hours. Paxlovid 0 2023- No 3{tbl} Q12H Take 3 UT 6-08 08-11 tablets by Health 00:00: 00:00 mouth 00 :00 every 12 (twelve) hours. benzonatate Yes TAKE ONE UT (Tessalon) 6-02 [...] EIGHT HOURS NEEDED FOR COUGH. diazePAM Yes [id number] TAKE 1 UT (Valium) 2 5-23 TABLET (2 [facility] MG tablet 00:00: MG TOTAL) 00 BY MOUTH 1 (ONE) TIME EACH DAY IF NEEDED FOR ANXIETY. diazePAM Yes [id number] TAKE 1 UT (Valium) 2 5-23 TABLET (2 [facility] MG tablet 00:00: MG TOTAL) 00 BY MOUTH 1 (ONE) TIME EACH DAY IF NEEDED FOR ANXIETY. Ivabradine Yes [id number] 1{tbl} Q.5D Take 1 UT HCl 5-11 tablet by [facility] ([facility]) 00:00: mouth 2 7.5 MG 00 (two) tablet times a day. Ivabradine Yes [id number] 1{tbl} Q.5D Take 1 UT HCl 5-11 tablet by [facility] ([facility]) 00:00: mouth 2 7.5 MG 00 (two) tablet times a day. Ivabradine Yes [id number] 1{tbl} Q.5D Take 1 UT HCl 5-11 tablet by [facility] ([facility]) 00:00: mouth 2 7.5 MG 00 (two) tablet times a day. Ivabradine Yes [id number] 1{tbl} Q.5D Take 1 UT HCl 5-11 tablet by [facility] ([facility]) 00:00: mouth 2 7.5 MG 00 (two) tablet times a day. Ivabradine 0 Yes [id number] 1{tbl} Q.5D Take 1 UT HCl 5-11 tablet by [facility] ([facility]) 00:00: mouth 2 7.5 MG 00 (two) tablet times a day. Ivabradine 0 Yes [id number] 1{tbl} Q.5D Take 1 UT HCl 5-11 tablet by [facility] ([facility]) 00:00: mouth 2 7.5 MG 00 (two) tablet times a day. Ivabradine 0 Yes [id number] 1{tbl} Q.5D Take 1 UT HCl 5-11 tablet by [facility] ([facility]) 00:00: mouth 2 7.5 MG 00 (two) tablet times a day. Ivabradine Yes [id number] 1{tbl} Q.5D Take 1 UT HCl 5-11 tablet by [facility] ([facility]) 00:00: mouth 2 7.5 MG 00 (two) tablet times a day. Ivabradine 0 Yes [id number] 1{tbl} Q.5D Take 1 UT HCl 5-11 tablet by [facility] ([facility]) 00:00: mouth 2 7.5 MG 00 (two) tablet times a day. Ivabradine Yes [id number] 1{tbl} Q.5D Take 1 UT HCl 5-11 tablet by [facility] ([facility]) 00:00: mouth 2 7.5 MG 00 (two) tablet times a day. Ivabradine 0 Yes [id number] 1{tbl} Q.5D Take 1 UT HCl 5-11 tablet by [facility] ([facility]) 00:00: mouth 2 7.5 MG 00 (two) tablet times a day. Ivabradine 0 Yes [id number] 1{tbl} Q.5D Take 1 UT HCl 5-11 tablet by [facility] ([facility]) 00:00: mouth 2 7.5 MG 00 (two) tablet times a day. Ivabradine 0 Yes [id number] 1{tbl} Q.5D Take 1 UT HCl 5-11 tablet by [facility] ([facility]) 00:00: mouth 2 7.5 MG 00 (two) tablet times a day. Ivabradine 2021-0 Yes [id number] 1{tbl} Q.5D Take 1 UT HCl 5-11 tablet by [facility] ([facility]) 00:00: mouth 2 7.5 MG 00 (two) tablet times a day. clopidogrel 2021-0 3- No [id number] 75mg QD Take 1 UT (Plavix) 75 5-11 05-12 tablet (75 [facility] MG tablet 00:00: 04:59 mg total) 00 :00 by mouth 1 (one) time each day. TK 1 T PO D clopidogrel 2021-0 2023- No [id number] 75mg QD Take 1 UT (Plavix) 75 5-11 05-12 tablet (75 [facility] MG tablet 00:00: 04:59 mg total) 00 :00 by mouth 1 (one) time each day. TK 1 T PO D clopidogrel 2021-0 3- No [id number] 75mg QD Take 1 [facility] (Plavix) 75 5-11 05-12 tablet (75 [facility] MG tablet 00:00: 04:59 mg total) 00 :00 by mouth 1 (one) time each day. TK 1 T PO D clopidogrel 2021-0 3- No [id number] 75mg QD Take 1 UT (Plavix) 75 5-11 05-12 tablet (75 [facility] MG tablet 00:00: 04:59 mg total) 00 :00 by mouth 1 (one) time each day. TK 1 T PO D clopidogrel 2021-0 3- No [id number] 75mg QD Take 1 UT (Plavix) 75 5-11 05-12 tablet (75 [facility] MG tablet 00:00: 04:59 mg total) 00 :00 by mouth 1 (one) time each day. TK 1 T PO D clopidogrel 2-0 2023- No [id number] 75mg QD Take 1 UT (Plavix) 75 5-11 05-12 tablet (75 [facility] MG tablet 00:00: 04:59 mg total) 00 :00 by mouth 1 (one) time each day. TK 1 T PO D clopidogrel 2-0 2023- No [id number] 75mg QD Take 1 UT (Plavix) 75 5-11 05-12 tablet (75 [facility] MG tablet 00:00: 04:59 mg total) 00 :00 by mouth 1 (one) time each day. TK 1 T PO D clopidogrel 2-0 3- No [id number] 75mg QD Take 1 UT (Plavix) 75 5-11 05-12 tablet (75 [facility] MG tablet 00:00: 04:59 mg total) 00 :00 by mouth 1 (one) time each day. TK 1 T PO D clopidogrel 2-0 3- No [id number] 75mg QD Take 1 UT (Plavix) 75 5-11 05-12 tablet (75 [facility] MG tablet 00:00: 04:59 mg total) 00 :00 by mouth 1 (one) time each day. TK 1 T PO D clopidogrel 2-0 3- No [id number] 75mg QD Take 1 UT (Plavix) 75 5-11 05-12 tablet (75 [facility] MG tablet 00:00: 04:59 mg total) 00 :00 by mouth 1 (one) time each day. TK 1 T PO D clopidogrel 2021-0 3- No [id number] 75mg QD Take 1 UT (Plavix) 75 5-11 05-12 tablet (75 [facility] MG tablet 00:00: 04:59 mg total) 00 :00 by mouth 1 (one) time each day. TK 1 T PO D clopidogrel 2-0 3- No [id number] 75mg QD Take 1 UT (Plavix) 75 5-11 05-12 tablet (75 [facility] MG tablet 00:00: 04:59 mg total) 00 :00 by mouth 1 (one) time each day. TK 1 T PO D clopidogrel 2-0 3- No [id number] 75mg QD Take 1 UT (Plavix) 75 5-11 05-12 tablet (75 [facility] MG tablet 00:00: 04:59 mg total) 00 :00 by mouth 1 (one) time each day. TK 1 T PO D clopidogrel 2-0 3- No [id number] 75mg QD Take 1 UT (Plavix) 75 5-11 05-12 tablet (75 [facility] MG tablet 00:00: 04:59 mg total) 00 :00 by mouth 1 (one) time each day. TK 1 T PO D ARIPiprazol 2021- No [id number] 5mg QD Take 1 UT e (Abilify) 07-21 tablet (5 He alth 5 MG tablet 00:00: 04:59 mg total) 00 :00 by mouth 1 (one) time each day. (Take with Aripiprazo le 20 mg to total aripripraz ole 25 mg daily). ARIPiprazol 2021- No [id number] 5mg QD Take 1 UT e (Abilify) 07-21 tablet (5 He alth 5 MG tablet 00:00: 04:59 mg total) 00 :00 by mouth 1 (one) time each day. Take with aripiprazo le 20 mg to total 25 mg daily. FLUoxetine 2021- No [id number] 20mg QD Take 1 UT (PROzac) 20 07-21 capsule [facility] MG capsule 00:00: 04:59 (20 mg 00 :00 total) by mouth 1 (one) time each day. ARIPiprazol 2021- No [id number] 5mg QD Take 1 UT e (Abilify) 07-21 tablet (5 He alth 5 MG tablet 00:00: 04:59 mg total) 00 :00 by mouth 1 (one) time each day. (Take with Aripiprazo le 20 mg to total aripripraz ole 25 mg daily). ARIPiprazol 2021-2021- No [id number] 5mg QD Take 1 UT e (Abilify) 07-21 tablet (5 He alth 5 MG tablet 00:00: 04:59 mg total) 00 :00 by mouth 1 (one) time each day. Take with aripiprazo le 20 mg to total 25 mg daily. FLUoxetine 2021-2021- No [id number] 20mg QD Take 1 UT (PROzac) 20 07-21 capsule [facility] MG capsule 00:00: 04:59 (20 mg 00 :00 total) by mouth 1 (one) time each day. ARIPiprazol 2021- No [id number] 20mg QD Take 1 UT e (Abilify) 07-20 tablet (20 [facility] 20 MG 00:00: 04:59 mg total) tablet 00 :00 by mouth 1 (one) time each day. ARIPiprazol 2021- No [id number] 20mg QD Take 1 UT e (Abilify) 07-20-27 tablet (20 H ealth 20 MG 00:00: [...] 28 needed for tablet itching. albuterol Yes [id number] 2.5mg Take 3 mL UT (2.5 8-23 (2.5 mg Health MG/3ML) 00:00: total) by 0.083% 00 nebulizati nebulizer on every 4 solution (four) hours if needed for wheezing or shortness of breath. albuterol 2021- No [id number] 2.5mg Take 3 mL UT (2.5 8-23 06-14 (2.5 mg Health MG/3ML) 00:00: 00:00 total) by 0.083% 00 :00 nebulizati nebulizer on every 4 solution (four) hours if needed for wheezing or shortness of breath. ARIPiprazol ARIPiprazol Yes SHAOJIE TAKE 1/2 UT e 10 MG e 10 MG -22 VARGAS M.D. TABLET BY [facility] Oral Tablet [...] DAY FOR 4 DAYS. Omeprazole Omeprazole Yes FOZIA Q0.5D TAKE 1 UT 40 [...] NOSTRIL Suspension Suspension ONCE DAILY [facility] Cor[facility] 2019-0 Yes FOZIA 1 and half UT 7.5 MG Oral 7.5 MG Oral 4-03 NAHUM tablet PO [facility] Tablet Tablet 00:00: M.D. BID ans 00 Nystatin-Tr Nystatin-Tr 2018-03 Yes GAZALA Q0.5D APPLY UT iamcinolone iamcinolone 0-08 [facility] SPARING[facility] [id number] 00:00: M.D. TO a ns UNIT/GM-% UNIT/GM-% [...] TABLET 5 Mg TABLET [facility] Aripiprazol Aripiprazol Yes [address] [facility] [facility] [...] Plavix TABS Yes U T [facility] ans Vital Signs Vital Name Observation Time Observation Value Comments Source Systolic blood 2022-11-26 91 mm[Hg] [facility] pressure 16:24:00 [facility] Diastolic blood 2022-11-26 60 mm[Hg] [facility] f pressure 16:24:00 [facility] Body weight 2022-11-26 79.379 kg University 16:24:00 [facility] BMI 2022-11-26 26.61 kg/m2 University 16:24:00 [facility] Heart rate 2022-11-26 69 /min [facility] 16:05:00 [facility] Body temperature 2022-11-26 36.72 Ying [facility] 16:05:00 [facility] Respiratory rate 2022-11-26 20 /min [facility] 16:05:00 [facility] Oxygen saturation 2022-11-26 99 /min [facility] in Arterial blood 16:05:00 [facility] by Pulse oximetry Branch Body weight 2022-11-11 79.379 kg University of 20:31:00 [facility] BMI 2022-11-11 26.61 kg/m2 [facility] of 20:31:00 [facility] Oxygen saturation 2022-11-11 98 /min [facility] in Arterial blood 20:31:00 [facility] by Pulse oximetry Branch Systolic blood 2022-11-11 108 mm[Hg] [facility] pressure 20:31:00 [facility] Diastolic blood 2022-11-11 79 mm[Hg] [facility] f pressure 20:31:00 [facility] Heart rate 2022-11-11 63 /min [facility] 20:31:00 [facility] Body temperature 2022-11-11 36.72 Ying [facility] 20:31:00 [facility] Respiratory rate 2022-11-11 18 /min University 20:31:00 [facility] Body height 2022-11-11 172.7 cm University 20:31:00 [facility] Systolic blood 2022-08-11 108 mm[Hg] [facility] pressure 18:19:00 Diastolic blood 2022-08-11 69 mm[Hg] [facility] pressure 18:19:00 Heart rate 2022-08-11 64 /min [facility] 18:13:00 Body temperature 2022-08-11 36.5 [facility]ing [facility] 18:13:00 Systolic blood 2022-03-21 104 mm[Hg] [facility] pressure 19:52:00 Diastolic blood 2022-03-21 70 mm[Hg] [facility] pressure 19:52:00 Heart rate 2022-03-21 52 /min [facility] 19:52:00 Body temperature 2022-03-21 36.67 [facility]ing [facility] 19:52:00 Respiratory rate 2022-03-21 16 /min [facility] 19:52:00 Body height 2022-03-21 172.7 cm [facility] 19:52:00 Body weight 2022-03-21 87.091 kg [facility] 19:52:00 BMI 2022-03-21 29.19 kg/m2 [facility] 19:52:00 Systolic blood 2021-12-23 98 mm[Hg] [facility] pressure 13:16:00 Diastolic blood 2021-12-23 68 mm[Hg] [facility] 13:16:00 Body temperature 2021-12-23 36.11 [facility] 13:16:00 Respiratory rate 2021-12-23 16 /min [facility] 13:16:00 Systolic blood 2021-11-04 104 mm[Hg] [facility] pressure 16:25:00 Diastolic blood 2021-11-04 71 mm[Hg] [facility] pressure 16:25:00 Heart rate 2021-11-04 64 /min [facility] 16[facility]25:00 Body temperature 2021-11-04 36.33 [facility]ing [facility] 16:25:00 Respiratory rate 2021-11-04 16 /min [facility] 16:25:00 Body height 2021-11-04 172.7 cm [facility] 16:25:00 Body weight 2021-11-04 94.972 kg [facility] 16:25:00 BMI 2021-11-04 31.84 kg/m2 [facility] 16:25:00 Oxygen saturation 2021-08-31 98 /min [facility] by Pulse oximetry 13:10:00 Patient [facility] BP Diastolic 2021-08-31 84 mm[Hg] [facility] 13:10:00 Patient [facility] Oxygen saturation 2021-08-31 97 /min [facility] by Pulse oximetry 10:40:00 Patient [facility] BP Diastolic 2021-08-31 70 mm[Hg] [facility] 10:40:00 Patient [facility] Oxygen saturation 2021-08-31 97 /min [facility] by Pulse oximetry 10:02:00 Patient [facility] BP Diastolic 2021-08-31 70 mm[Hg] [facility] 10:02:00 Patient [facility] Oxygen saturation 2021-08-31 96 /min [facility] by Pulse oximetry 08:05:00 Patient [facility] Oxygen saturation 2021-08-31 96 /min [facility] by Pulse oximetry 07:50:00 Patient [facility] Oxygen saturation 2021-08-31 96 /min [facility] by Pulse oximetry 05:35:00 Patient [facility] BP Diastolic 2021-08-31 74 mm[Hg] [facility] 05:35:00 Patient [facility] Oxygen saturation 2021-08-31 99 /min [facility] by Pulse oximetry 02:20:00 Patient [facility] Oxygen saturation 2021-08-31 97 /min [facility] by Pulse oximetry 02:05:00 Patient [facility] Oxygen saturation 2021-08-31 95 /min [facility] by Pulse oximetry 01:00:00 Patient [facility] BP Diastolic 2021-08-31 70 mm[Hg] [facility] 01:00:00 Patient [facility] Oxygen saturation 2021-08-30 98 /min [facility] by Pulse oximetry 22:00:00 Patient [facility] BP Diastolic 2021-08-30 72 mm[Hg] [facility] 22:00:00 Patient [facility] Oxygen saturation 2021-08-30 98 /min [facility] by Pulse oximetry 21:00:00 Patient [facility] BP Diastolic 2021-08-30 72 mm[Hg] [facility] 21:00:00 Patient [facility] Oxygen saturation 2021-08-30 99 /min [facility] by Pulse oximetry 20:25:00 Patient [facility] Oxygen saturation 2021-08-30 97 /min [facility] by Pulse oximetry 20:10:00 Patient [facility] Oxygen saturation 2021-08-30 99 /min [facility] by Pulse oximetry 17:15:00 Patient [facility] BP Diastolic 2021-08-30 64 mm[Hg] [facility] 17:15:00 Patient [facility] Oxygen saturation 2021-08-30 100 /min [facility] by Pulse oximetry 14:47:00 Patient [facility] Oxygen saturation 2021-08-30 96 /min [facility] by Pulse oximetry 14:32:00 Patient [facility] Oxygen saturation 2021-08-30 95 /min [facility] by Pulse oximetry 12:56:00 Patient [facility] BP Diastolic 2021-08-30 66 mm[Hg] [facility] 12:56:00 Patient [facility] Oxygen saturation 2021-08-30 97 /min [facility] by Pulse oximetry 09:50:00 Patient [facility] BP Diastolic 2021-08-30 76 mm[Hg] [facility] 09:50:00 Patient [facility] Oxygen saturation 2021-08-30 97 /min [facility] by Pulse oximetry 09:07:00 Patient [facility] BP Diastolic 2021-08-30 76 mm[Hg] [facility] 09:07:00 Patient [facility] Oxygen saturation 2021-08-30 100 /min [facility] by Pulse oximetry 08:26:00 Patient [facility] Oxygen saturation 2021-08-30 96 /min [facility] by Pulse oximetry 08:11:00 Patient [facility] Oxygen saturation 2021-08-30 97 /min [facility] by Pulse oximetry 05:00:00 Patient [facility] BP Diastolic 2021-08-30 61 mm[Hg] [facility] 05:00:00 Patient [facility] Oxygen saturation 2021-08-30 98 /min [facility] by Pulse oximetry 01:43:00 Patient [facility] Oxygen saturation 2021-08-30 95 /min [facility] by Pulse oximetry 01:35:00 Patient [facility] Oxygen saturation 2021-08-30 94 /min [facility] by Pulse oximetry 01:00:00 Patient [facility] BP Diastolic 2021-08-30 84 mm[Hg] [facility] 01:00:00 Patient [facility] Oxygen saturation 2021-08-29 97 /min [facility] by Pulse oximetry 22:00:00 Patient [facility] BP Diastolic 2021-08-29 84 mm[Hg] [facility] 22:00:00 Patient [facility] Oxygen saturation 2021-08-29 97 /min [facility] by Pulse oximetry 21:00:00 Patient [facility] BP Diastolic 2021-08-29 84 mm[Hg] [facility] 21:00:00 Patient [facility] Oxygen saturation 2021-08-29 99 /min [facility] by Pulse oximetry 20:48:00 Patient [facility] Oxygen saturation 2021-08-29 97 /min [facility] by Pulse oximetry 20:40:00 Patient [facility] Oxygen saturation 2021-08-29 100 /min [facility] by Pulse oximetry 18:26:00 Patient [facility] BP Diastolic 2021-08-29 77 mm[Hg] [facility] 18[facility]26:00 Patient [facility] Oxygen saturation 2021-08-29 99 /min [facility] by Pulse oximetry 13:47:00 Patient [facility] Oxygen saturation 2021-08-29 94 /min [facility] by Pulse oximetry 13:37:00 Patient [facility] Oxygen saturation 2021-08-29 100 /min [facility] by Pulse oximetry 13:31:00 Patient [facility] BP Diastolic 2021-08-29 76 mm[Hg] [facility] 13:31:00 Patient [facility] Oxygen saturation 2021-08-29 100 /min [facility] by Pulse oximetry 09:25:00 Patient [facility] BP Diastolic 2021-08-29 87 mm[Hg] [facility] 09:25:00 Patient [facility] Oxygen saturation 2021-08-29 100 /min [facility] by Pulse oximetry 09:04:00 Patient [facility] BP Diastolic 2021-08-29 87 mm[Hg] [facility] 09:04:00 Patient [facility] Oxygen saturation 2021-08-29 99 /min [facility] by Pulse oximetry 07:25:00 Patient [facility] Oxygen saturation 2021-08-29 97 /min [facility] by Pulse oximetry 07:15:00 Patient [facility] Oxygen saturation 2021-08-29 93 /min [facility] by Pulse oximetry 05:00:00 Patient [facility] BP Diastolic 2021-08-29 77 mm[Hg] [facility] 05:00:00 Patient [facility] Oxygen saturation 2021-08-29 98 /min [facility] by Pulse oximetry 01:50:00 Patient [facility] Oxygen saturation 2021-08-29 95 /min [facility] by Pulse oximetry 01:35:00 Patient [facility] Oxygen saturation 2021-08-29 95 /min [facility] by Pulse oximetry 01:00:00 Patient [facility] BP Diastolic 2021-08-29 74 mm[Hg] [facility] 01:00:00 Patient [facility] Oxygen saturation 2021-08-28 95 /min [facility] by Pulse oximetry 23:14:00 Patient [facility] BP Diastolic 2021-08-28 72 mm[Hg] [facility] 23:14:00 Patient [facility] Oxygen saturation 2021-08-28 95 /min [facility] by Pulse oximetry 21:00:00 Patient [facility] BP Diastolic 2021-08-28 72 mm[Hg] [facility] 21:00:00 Patient [facility] Oxygen saturation 2021-08-28 96 /min [facility] by Pulse oximetry 20:22:00 Patient [facility] Oxygen saturation 2021-08-28 98 /min [facility] by Pulse oximetry 18:05:00 Patient [facility] Oxygen saturation 2021-08-28 97 /min [facility] by Pulse oximetry 18:04:00 Patient [facility] Oxygen saturation 2021-08-28 98 /min [facility] by Pulse oximetry 17:55:00 Patient [facility] Oxygen saturation 2021-08-28 94 /min [facility] by Pulse oximetry 17:14:00 Patient [facility] BP Diastolic 2021-08-28 78 mm[Hg] [facility] 17[facility]14:00 Patient [facility] Oxygen saturation 2021-08-28 97 /min [facility] by Pulse oximetry 13:26:00 Patient [facility] BP Diastolic 2021-08-28 74 mm[Hg] [facility] 13:26:00 Patient [facility] Oxygen saturation 2021-08-28 99 /min [facility] by Pulse oximetry 10:15:00 Patient [facility] BP Diastolic 2021-08-28 72 mm[Hg] [facility] 10:15:00 Patient [facility] Oxygen saturation 2021-08-28 99 /min [facility] by Pulse oximetry 09:22:00 Patient [facility] BP Diastolic 2021-08-28 72 mm[Hg] [facility] 09[facility]22:00 Patient [facility] Oxygen saturation 2021-08-28 96 /min [facility] by Pulse oximetry 08:09:00 Patient [facility] Oxygen saturation 2021-08-28 97 /min [facility] by Pulse oximetry 08:07:00 Patient [facility] Oxygen saturation 2021-08-28 97 /min [facility] by Pulse oximetry 08:00:00 Patient [facility] Oxygen saturation 2021-08-28 93 /min [facility] by Pulse oximetry 05:00:00 Patient [facility] BP Diastolic 2021-08-28 69 mm[Hg] [facility] 05:00:00 Patient [facility] Oxygen saturation 2021-08-28 99 /min [facility] by Pulse oximetry 01:09:00 Patient [facility] Oxygen saturation 2021-08-28 96 /min [facility] by Pulse oximetry 01:00:00 Patient [facility] BP Diastolic 2021-08-28 76 mm[Hg] [facility] 01:00:00 Patient [facility] Oxygen saturation 2021-08-28 96 /min [facility] by Pulse oximetry 00:00:00 Patient [facility] BP Diastolic 2021-08-28 67 mm[Hg] [facility] 00:00:00 Patient [facility] Oxygen saturation 2021-08-27 96 /min [facility] by Pulse oximetry 21:00:00 Patient [facility] BP Diastolic 2021-08-27 67 mm[Hg] [facility] 21:00:00 Patient [facility] Oxygen saturation 2021-08-27 98 /min [facility] Pulse oximetry 20:28:00 Patient [facility] Oxygen saturation 2021-08-27 95 /[facility] [facility] by Pulse oximetry 20:20:00 Patient [facility] Height 2021-08-[address] [facility] 19:16:00 Patient [facility] Weight 2021-08-[address] [facility] 19:16:00 Patient [facility] BMI (Body Mass 2021-08-27 32.1 kg/m2 [facility] Index) 19:16:00 Patient [facility] Oxygen saturation 2021-08-27 97 /min [facility] Pulse oximetry 16:56:00 Patient [facility] BP Diastolic 2021-08-27 81 mm[Hg] [facility] 16:56:00 Patient [facility] Oxygen saturation 2021-08-27 96 /min [facility] Pulse oximetry 15:36:00 Patient [facility] BP Diastolic 2021-08-27 78 mm[Hg] [facility] 15:36:00 [facility] Oxygen saturation 2021-08-27 96 /min [facility] Pulse oximetry 15:33:00 Patient [facility] BP Diastolic 2021-08-27 78 mm[Hg] [facility] 15:33:00 Patient [facility] Oxygen saturation 2021-08-27 96 /min [facility] Pulse oximetry 14:37:00 Patient [facility] BP Diastolic 2021-08-27 78 mm[Hg] [facility] 14:37:00 Patient [facility] Oxygen saturation 2021-08-27 98 /min [facility] Pulse oximetry 12:50:00 [facility] Oxygen saturation 2021-08-27 97 /min [facility] Pulse oximetry 12:49:00 [facility] Oxygen saturation 2021-08-27 97 /min [facility] Pulse oximetry 12:40:00 [facility] Oxygen saturation 2021-08-27 98 /min [facility] Pulse oximetry 09:00:00 [facility] BP Diastolic 2021-08-27 80 mm[Hg] [facility] 09:[facility] Systolic blood 2019-08-04 100 mm[Hg] Location: RUE; [facility] pressure 11:18:00 Position: Sitting Diastolic blood 2019-08-04 62 mm[Hg] Location: RUE; [facility] pressure 11:18:00 Position: Sitting Body height 2019-08-04 68 [in_us] [facility] 11:18:00 Weight 2019-08-04 201.5 [lb_av] [facility] 11:18:00 Body mass index 2019-08-04 30.64 kg/m2 [facility] (BMI) [Ratio] 11:18:00 Body temperature 2019-08-04 97 [degF] Method: Oral [facility] 11:18:00 Heart Rate 2019-08-04 77 /min [facility] 11:18:00 Systolic blood 2019-07-23 101 mm[Hg] Location: RUE; [facility] pressure 10:43:00 Position: Sitting Diastolic blood 2019-07-23 66 mm[Hg] Location: RUE; [facility] pressure 10:43:00 Position: Sitting Body height 2019-07-23 68 [in_us] [facility] 10:43:00 Weight 2019-07-23 190 [lb_av] [facility] 10:43:00 Body mass index 2019-07-23 28.89 kg/m2 [facility] (BMI) [Ratio] 10:43:00 Heart Rate 2019-07-23 69 /min [facility] 10:43:00 Body temperature 2019-07-23 97.1 [degF] [facility] 10:43:00 Systolic blood 2019-05-02 112 mm[Hg] Location: RUE; [facility] pressure 15:13:00 Position: Sitting Diastolic blood 2019-05-02 76 mm[Hg] Location: RUE; [facility] pressure 15:13:00 Position: Sitting Body height 2019-05-02 68 [in_us] [facility] 15:13:00 Weight 2019-05-02 190 [lb_av] [facility] 15:13:00 Body mass index 2019-05-02 28.89 kg/m2 [facility] (BMI) [Ratio] 15:13:00 Heart Rate 2019-05-02 79 /min [facility] 15:13:00 BP Systolic 2019-04-15 122 mm[Hg] Location: LUE; [facility] 16:33:00 Position: Sitting BP Diastolic 2019-04-15 78 mm[Hg] Location: L[facility]; [facility] 16:33:00 Position: Sitting Height 2019-04-15 68 [in_us] [facility] 16:33:00 Weight 2019-04-15 209 [lb_av] [facility] 16:33:00 Body Mass Index 2019-04-15 31.78 kg/m2 [facility] Calculated 16:33:00 BP Systolic 2018-12-31 113 mm[Hg] Location: LUE; [facility] 16:04:00 Position: Sitting BP Diastolic 2018-12-31 79 mm[Hg] Location: L[facility]; [facility] 16:04:00 Position: Sitting Height 2018-12-31 68 [in_us] [facility] 16:04:00 Weight 2018-12-31 204 [lb_av] [facility] 16:04:00 Body Mass Index 2018-12-31 31.02 kg/m2 [facility] Calculated 16:04:00 Temperature 2018-12-31 97.9 [degF] Method: Oral [facility] 16:04:00 Heart Rate 2018-12-31 79 /min [facility] 16:04:00 BP Systolic 2018-12-20 136 mm[Hg] Location: LUE; [facility] 11:28:00 Position: Sitting BP Diastolic 2018-12-20 82 mm[Hg] Location: LUE; [facility] 11:28:00 Position: Sitting Height 2018-12-20 68 [...] Respiration Rate 2018-11-27 18 /min Quality: Normal [facility] 10:59:00 O2 SAT 2018-11-27 99 [...] / Time Performing Clinician Source Performed XR CHEST 2 VW 2022-11-26 16:48:00 Lawrence Barfield O'Brien o f [facility] POCT MOLECULAR FLU 2022-11-26 16:38:00 Unknown, Attending [facility] POCT MOLECULAR STREP 2022-11-26 16:36:00 Unknown, Attending [facility] POCT SARS-COV-2 ANTIGEN 2022-11-26 16:05:00 [facility] (BINAX NOW) [facility] CONSENT/REFUSAL FOR 2022-11-11 20:22:06 Doctor Unassigned, [facility] DIAGNOSIS AND TREATMENT [facility] XR KNEE 4+ VIEWS RIGHT 2021-11-04 18:38:56 Jai Samuel [place] He alth X-ray of chest, two views 2021-08-31 00:00:00 [facility] [QL] CMP W/EGFR 2019-10-20 00:00:00 [facility] Spine lumbar wo 2019-10-20 00:00:00 [facility] contrast [id number] . [facility] - PAP 2019-05-02 00:00:00 [facility] [QLH] CULTURE, URINE, 2019-05-02 00:00:00 [facility] ROUTINE [QLH] URINALYSIS, COMPLETE 2019-05-02 00:00:00 [facility] US Pelvis with Pelvis 2019-04-15 00:00:00 [facility] Transvaginal [id number] [QLH] CULTURE, URINE, 2018-12-31 00:00:00 [facility] ROUTINE [QLH] URINALYSIS, COMPLETE 2018-12-03 00:00:00 [facility] [QLH] CULTURE, URINE, 2018-12-03 00:00:00 [facility] ROUTINE [N] 2D Echo complete, with 2018-11-26 00:00:00 [facility] Doppler [id number] [QLH] CMP W/EGFR 2018-04-23 00:00:00 [facility] [...] Pelvis Transvaginal 2017-11-30 00:00:00 [facility] 0[facility]42 [facility]endectomy [facility]olecyst[facility]oph[facility]omy [facility] Plan of Care Planned Activity Planned Date Details Comments Source Diagnostic Test 2018-12-17 [N] 2D Echo [facility] Pending 00:00:00 complete, with Doppler 83245 [code = [N] 2D Echo complete, with Doppler 82926] Instructions Bradycardia, [facility] Instructions COVID-19: What to ARTEMIO Delacruz Patient Do If You Are Medical Center Sick - CDC (03/02/2021) Encounters Start End Encounter Admission Attending Care Care Encounter Source Date/Time Date/Time Type Type Clinicians Facility Department ID 2022-09-25 Outpatient [facility] [id number] [place] 15:24:44 [id number] [facility] 2022-09-07 Outpatient [facility] [id number] [place] 14:39:03 [id number] [facility] 2022-08-18 Outpatient [facility] [id number] [place] 18:03:14 [id number] [facility] 2022-08-14 Outpatient [facility] [id number] [place] 08:50:00 [id number] [facility] 2022-08-11 Outpatient [facility] [id number] [place] 13:01:14 [id number] [facility] 2022-08-09 Outpatient [facility] [id number] [place] 06:27:55 [id number] [facility] 2022-07-14 Outpatient [facility] [id number] [place] 12:02:17 [id number] [facility] 2022-07-05 Outpatient [facility] [id number] [place] 09:10:34 [id number] [facility] 2022-07-03 Outpatient [facility] [id number] [place] 12:49:26 [id number] [facility] 2022-06-12 Outpatient [facility] [id number] [place] 01:00:03 [id number] [facility] 2022-05-05 Outpatient [facility] [id number] [place] 14:53:16 [id number] [facility] 2022-04-21 Outpatient [facility] [id number] [place] 13:19:28 [id number] [facility] 2022-04-03 Outpatient [facility] [id number] [place] 09:54:00 [id number] [facility] 2022-03-07 Outpatient [facility] [id number] [place] 14:20:29 [id number] [facility] 2022-01-13 Outpatient [facility] [id number] [place] 10:01:15 [id number] [facility] 2021-05-24 Outpatient NUNEZ, [facility] [id number] [place] 09:33:07 [facility] 2021-05-20 Outpatient JIMMIE, [facility] [id number] [place] 07:40:38 [facility] 2021-05-19 Outpatient NUNEZ, [facility] [id number] [place] 11:18:59 [facility] 2021-04-14 Outpatient NUNEZ, [facility] [id number] [place] 14:58:36 [facility] 2021-02-01 Outpatient KACI, [facility] [id number] [place] 15:47:47 [facility] 2021-01-20 Outpatient NUNEZ, [facility] [id number] [place] 13:22:10 [facility] 2021-01-18 Outpatient CEDENO, [facility] [id number] [place] 09:09:29 [facility] 2020-09-14 Outpatient BLADIMIR CORBETT [facility] [id number] [place] 12:17:06 [facility] 2020-09-14 Outpatient ALICIA, [facility] [id number] [place] 12:03:08 [facility] 2020-08-19 Outpatient [facility] [id number] [place] 11:51:51 [facility] 2020-08-19 Outpatient CHERY, [facility] [id number] [place] 11:48:03 [facility] 2020-08-19 Outpatient [facility] [id number] [place] 11:39:27 [facility] 2020-08-10 Outpatient ALICIA, [facility] [id number] [place] 10:51:30 [facility] 2023-05-10 2023-05-10 Outpatient JIMMIE, [facility] [id number] [place] 16:20:00 16:20:00 [facility] 2023-05-07 2023-05-07 Outpatient UKWUOMA, [facility] [id number] [place] 17:40:00 17:40:00 [facility] 2023-02-05 2023-02-05 Outpatient UKWUOMA, [facility] [id number] [place] 10:20:00 10:20:00 [facility] 2023-01-31 2023-01-31 Outpatient UKWUOMA, [facility] [id number] [place] 17:40:00 17:37:07 [facility] 2022-11-26 2022-11-26 [facility] .[id number] Univers 11:31:46 23:59:00 Encounter [facility] HEALTH 350.1.13.10 ity of [place] 4.2.7.2.686 Lobo as DEANNA?BLEA [id number] [place] lee ZAMORANO [address] MEDICAL OFFICE [facility] 2022-11-26 2022-11-26 Outpatient R LICO [facility] [id number] Univers 10:40:00 12:04:21 LAWRENCE tee [facility] 2022-11-26 2022-11-26 Urgent Lawrence Barfield [facility] 1.2.840.114 [id number] Univers 10:40:00 11:00:00 Care Unknown, Attending HEALTH 350.1.13.10 [facility] 4.2.7.2.686 Lobo as DEANNA?BLEA [id number] [place] lee ZAMORANO [address] MEDICAL OFFICE [facility] 2022-11-26 2022-11-26 Telephone Lico [facility] 1..840.114 [id number] Univers 00:00:00 00:00:00 [facility] HEALTH 350.1.13.10 it y [facility] 4.2.7.2.686 Lobo as DEANNA?BLEA [id number] Va lee ZAMORANO [address] MEDICAL OFFICE [facility] 2022-11-11 2022-11-11 Urgent DavidgirishTimoteo drummond [facility] 1.2.840.11 [id number] Univers 15:00:00 15:20:00 Care Unknown, Attending HEALTH 350.1.13.10 [facility] 4.2.7.2.686 Lobo as DEANNA?BLEA [id number] [place] lee ZAMORANO [address] MEDICAL OFFICE [facility] 2022-11-11 2022-11-11 Outpatient R ZEE [facility] [id number] Univers 15:00:00 15:00:00 TIMOTEO [facility] 2022-11-11 2022-11-11 Orders Doctor GARRISON 1.2.840.114 [id number] Univers 00:00:00 00:00:00 Only Unassigned, RACHEL 350.1.13.10 ity of [facility] 4.2.7.2.686 Lobo as [id number] [facility] [address] Branch 2022-11-06 2022-11-06 Outpatient VENITA [facility] [id number] [place] 09:00:00 09:10:38 [facility] 2022-11-03 2022-11-03 Telemedici AILIN Tsang 6410 1.2.840.114 [id number] [place] 11:00:00 11:20:[address] 350.1.13.58 Health 9.2.7.2.686 [id number] 1 2022-09-04 2022-09-04 Telemedici AILIN Mendiola 1.2.840.114 1 [id number] [place] 13:00:00 13:14:53 ne Zenaida MORINE 350.1.13.58 H [facility] STATION 9.2.7.2.686 [facility] [id number] 3 2022-09-04 2022-09-04 Telemedici AILIN Samuel 6410 1.2.840.114 1 [id number] [place] 10:50:00 11:16:[address] 350.1.13.58 Health 9.2.7.2.686 [id number] 1 2022-08-14 2022-08-14 Outpatient VENITA [facility] [id number] [place] 09:00:00 09:06:02 [facility] 2022-08-11 2022-08-11 Office Marlene Daigle 6410 1.2.840.114 1 [id number] [place] 13:20:00 14:05:[address] 350.1.13.58 Health 9.2.7.2.686 [id number] 1 2022-08-02 2022-08-02 Outpatient JAGDEEP STUBBS [facility] [id number] [place] 10:30:00 10:30:00 Health 2022-07-04 2022-07-04 Telemedici AILIN Samuel 6410 1.2.840.114 [id number] [place] 16:00:00 16:24:[address] 350.1.13.58 Health 9.2.7.2.686 [id number] 1 2022-06-19 2022-06-19 Outpatient JIMMIE [facility] [id number] [place] 10:50:00 10:50:00 [facility] 2022-04-19 2022-04-19 Outpatient JAGDEEP STUBBS [facility] [id number] [place] 10:30:00 10:30:00 Health 2022-04-11 2022-04-11 Office Margret [facility] 1.2.840.114 [id number] [place] 10:45:00 11:33:15 Visit MARIO Vinson 350.1.13.58 H [facility] 9.2.7.2.686 [address] 2 [id number] 7 2022-03-29 2022-03-29 Outpatient MARGRET [facility] [id number] [place] 11:30:00 11:30:00 [facility] 2022-03-21 2022-03-21 Office AILIN Samuel 6410 1.2.237.151 [id number] [place] 14:20:00 14:40:[address] 350.1.13.58 Health 9.2.7.2.686 [id number] 1 2022-03-06 2022-03-06 Nurse Ingrid Lares [facility] SM[facility] 1.2.840 .114 [id number] [place] 00:00:00 00:00:00 Triage Ingrid Lares 350.1.13.58 Health MEDICAL 9.2.7.2.686 [place] [id number] 2022-02-28 2022-02-28 Telemedici AILIN Samuel 6410 1.2.840.114 1 [id number] [place] 10:50:00 11:14:[address] 350.1.13.58 Health 9.2.7.2.686 [id number] 1 2022-02-21 2022-02-21 Outpatient NUNEZ, [facility] [id number] [place] 13:00:00 13:27:40 [facility] 2022-02-21 2022-02-21 Outpatient MARGRET [facility] [id number] [place] 10:45:00 10:45:00 Katiana VINSON 2022-02-06 2022-02-06 Outpatient JIMMIE, [facility] [id number] [place] 10:10:00 10:10:00 [facility] 2022-02-01 2022-02-01 Outpatient ASA, [facility] [id number] [place] 11:30:00 15:04:27 GABRIEL burnett 2022-01-10 2022-01-10 Office Margret [facility] 1.2.840.114 [id number] [place] 11:30:00 12:10:[address] [facility] 350.1.13.58 H [facility] 9.2.7.2.686 [place] 7 [id number] 7 2022-01-10 2022-01-10 Outpatient [facility] [id number] [place] 11:05:00 11:05:00 [facility] 2022-01-10 2022-01-10 Outpatient [facility] [id number] [place] 11:00:00 11:00:00 [facility] 2022-01-04 2022-01-04 Outpatient MARGRET [facility] [id number] [place] 11:00:00 11:00:00 ALISSON [facility] 2021-12-23 2021-12-23 Office AILIN Samuel 6410 1.2.609.169 [id number] [place] 08:10:00 08:49:02 Visit Jai PRICE 350.1.13.58 [facility] 9.2.7.2.686 [id number] 1 2021-12-20 2021-12-20 Outpatient MAYRA, [facility] [id number] [place] 13:00:00 13:25:07 [facility] 2021-12-08 2021-12-08 Outpatient SEB LEBLANC [facility] [id number] [place] 08:50:00 08:50:00 [facility] 2021-12-05 2021-12-05 Nurse Pancho Yu DE SMET 1.2.840.114 [id number] [place] 00:00:00 00:00:00 Triage Pancho Yu 350.1.13.58 Health MEDICAL 9.2.7.2.686 [place] [id number] 2021-12-02 2021-12-02 Outpatient JIMMIE [facility] [id number] [place] 07:50:00 07:50:00 [facility] 2021-11-23 2021-11-23 Outpatient ASA, [facility] [id number] [place] 09:00:00 09:00:00 PONCHODEMARIO Sheppard lex 2021-11-04 2021-11-04 Office Jimmie [facility] 6410 1.2.561.816 [id number] [place] 11:10:00 11:30:[address] 350.1.13.58 Health 9.2.7.2.686 [id number] 1 2021-11-02 2021-11-02 Telephone Asa AILIN 6400 1.2.840.114 [id number] [place] 00:00:00 00:00:[address] 350.1.13.58 Health 9.2.7.2.686 [id number] 1 2021-09-06 2021-09-06 Telemedici Jimmie, [facility] 6410 1.2.840.114 1 [id number] [place] 16:30:00 17:21:[address] 350.1.13.58 Health 9.2.7.2.686 [id number] 1 2021-09-01 2021-09-01 Telephone Kendra Gibbons [place] 1.2.84 0.114 [id number] [place] 00:00:00 00:00:00 Kendra Gibbons 350.1.13.58 Health MEDICAL 9.2.7.2.686 [place] [id number] 2021-09-01 2021-09-01 Telephone Nitin [facility] 6400 1.2.840.114 [id number] [place] 00:00:00 00:00:[address] 350.1.13.58 Health 9.2.7.2.686 [id number] 1 2021-08-27 2021-08-31 Outpatient 1 LAURA[facility] A[facility] [id number] [facility] 08:48:00 14:05:00 DAVID Patients Patients [facility] Patie [facility] 2021-08-27 2021-08-31 Discharged [facility] de55c [id number] [facility] 08:48:00 14:05:00 Inpatient Patients [id number] [facility] [id number] Pa tylor [id number] [facility] 2021-08-27 2021-08-31 Inpatient [facility] [id number] 07:48:00 13:05:[id number] [facility] 2021-08-27 2021-08-27 Telephone Ericka Coley 1.2.840.11 [id number] [place] 00:00:00 00:00:00 Ericka Coley 350.1.13.58 Health MEDICAL 9.2.7.2.686 [place] [id number] 2021-08-24 2021-08-24 Emergency EM Lacy[facility] [id number] [facility] 19:50:00 21:25:00 Clarissa [id number] [facility] 2021-08-24 2021-08-24 Emergency EM Lacy, [facility] [id number] [facility] 19:50:00 21:25:00 Clarissa 20 [facility] 2021-08-03 2021-08-03 Telephonic AILIN Clemons 6400 1.2.840.114 [id number] [place] 11:00:00 11:29:[address] 350.1.13.58 Health 9.2.7.2.686 [id number] 1 2021-07-26 2021-07-26 Telephone AILIN Clemons 6400 1.2.840.114 [id number] [place] 00:00:00 00:00:[address] 350.1.13.58 Health 9.2.7.2.686 [id number] 1 2021-07-20 2021-07-20 Telephone Jones Pool 1.2.840.1 14 [id number] [place] 00:00:00 00:00:00 Jones Pool MULTI 350.1.13.58 Health SPECIALTY 9.2.7.2.686 CLINIC [id number] 1 2021-05-23 2021-05-23 Telemedici Hilda, [facility] 6410 1.2.840.114 [id number] [place] 15:40:00 15:40:[address] 350.1.13.58 Health 9.2.7.2.686 [id number] 1 2021-03-03 2021-03-03 Refill Ratna, [facility] 6410 1.2.344.512 [id number] [place] 00:00:00 00:00:[address] 350.1.13.58 Health 9.2.7.2.686 [id number] 1 2021-02-01 2021-02-01 Telephonic Kaci [facility] 6400 1.2.840.114 [id number] [place] 15:48:28 15:48:[address] 350.1.13.58 Health 9.2.7.2.686 [id number] 1 2021-01-21 2021-01-21 Abstract Bernie Yepez [facility] 6400 1.2.8 40.114 [id number] [place] 00:00:00 00:00:[address] 350.1.13. 58 Health 9.2.7.2.686 [id number] 1 2021-01-18 2021-01-18 Refill Kaci [facility] 6400 1.2.840.114 12 [id number] [place] 00:00:00 00:00:[address] 350.1.13.58 Health 9.2.7.2.686 [id number] 1 2021-01-07 2021-01-07 Telephone Bladimir Corbett [facility] 6410 1.2.840.114 [id number] [place] 00:00:00 00:00:[address] 350.1.13.58 Health 9.2.7.2.686 [id number] 2 2020-12-08 2020-12-08 Refill Kaci, [facility] 6400 1.2.840.114 12 [id number] [place] 00:00:00 00:00:[address] 350.1.13.58 Health 9.2.7.2.686 [id number] 1 2020-11-17 2020-11-17 Telemedici Jimmie, [facility] 6410 1.2.840.114 1 [id number] UT 07:39:21 07:59:[address] 350.1.13.58 Health 9.2.7.2.686 [id number] 1 2020-11-15 2020-11-15 Telephone AILIN Sidhu 6410 1.2.840.114 1 [id number] [place] 00:00:00 00:00:[address] 350.1.13.58 Health 9.2.7.2.686 [id number] 1 2020-11-11 2020-11-11 Telephone Nahum [facility] 6410 1.2.840.114 1 [id number] [place] 00:00:00 00:00:[address] 350.1.13.58 Health 9.2.7.2.686 [id number] 1 2020-09-16 2020-09-16 Refill Neva Laguna [facility] 1.2.840.11 [id number] [place] 00:00:00 00:00:00 LagunaCarl gregorioamber [facility] 350.1.13.58 Health MEDICAL 9.2.7.2.686 [facility] [id number] 2020-06-30 2020-06-30 Fiordaliza CLEMONS, AILIN [facility] [id number] [place] 09:45:00 09:45:00 t; YAN BEEBE Ph, evens BEEBE NP 2020-06-23 2020-06-23 AILIN Murguia [facility] [id number] [place] 11:30:00 11:30:00 t; YAN BEEBE Ph, evens BEEBE NP 2020-06-14 2020-06-14 Appointmen AILIN VARGAS Multispecia [id number] [place] 11:00:00 11:00:00 t; JOSELO VARGAS lty - Physi rachel JOSUE M.D. Internation evens [facility] 2020-06-10 2020-06-10 Appointmen AILIN VARGAS UTP [id number] [place] 10:30:00 10:30:00 t; JOSELO VARGAS Physi ci SHAOJIE, M.D. ans M.D. 2020-06-07 2020-06-07 Fiordaliza SIDHU, [facility] Family [id number] [place] 07:50:00 07:50:00 t; Mil[facility]Z [facility] [place] 2020-04-14 2020-04-14 AppointAILIN Edwards Multispecia [id number] [place] 11:30:00 11:30:00 t; JOSELO VARGAS lty - Physi rachel JOSUE M.D. Internation evens [facility] 2020-04-14 2020-04-14 Appointchika GARLANDIQAR, [facility] UTP [id number] [place] 09:50:00 09:50:00 t; Milena JIMENEZ evens Mariee M.D. 2020-01-19 2020-01-19 Fiordaliza SIDHU, [facility] Family [id number] [place] 11:10:00 11:10:00 t; [facility] [place] 2019-11-18 2019-11-18 AppointAILIN Edwards UTP [id number] [place] 11:00:00 11:00:00 t; JOSELO VARGAS Physi ci SHAOJIE, M.D. ans M.D. 2019-11-13 2019-11-13 AILIN Feliz Multispecia [id number] [place] 13:00:00 13:00:00 t; JOSELO VARGAS lty - Physi rachel JOSUE M.D. Internation evens [facility] 2019-11-06 2019-11-06 Fiordaliza KACI, [facility] [id number] [place] 10:30:00 10:30:00 t; YAN BEEBE Ph milagros CLEMONS, evens BEEBE NP 2019-10-20 2019-10-20 [facility] NAHUM, [facility] [id number] [place] 10:10:00 10:10:00 t; Milena JMIENEZ Ph evens Mariee M.D. 2019-09-19 2019-09-19 [facility] [id number] [place] 09:00:00 09:00:00 t; SLICK DUNAWAY M.D. P hysici ALLAN, ans M.D. 2019-09-15 2019-09-15 [facility] [id number] [place] 13:30:00 13:30:00 t; [facility] 2019-08-12 2019-08-12 [facility] KACI, [facility] [id number] [place] 11:30:00 11:30:00 t; YAN BEEBE Ph milagros CLEMONS, evens BEEBE NP 2019-08-04 2019-08-04 [facility] [id number] [place] 11:00:00 11:00:00 t; Milena ALEGRE [place] [facility] [place], [place] evens ALEGRE M.D. [facility] 2019-07-24 2019-07-27 [facility] [address] [facility] 13:05:00 19:10:00 CODEY 2019-07-24 2019-07-24 Fiordaliza GRANADO, [facility] [id number] [place] 13:00:00 13:00:00 t; Elham COLLAZO M.D. ans SHERVIN, M.D. 2019-07-23 2019-07-23 Fiordaliza MULLER [facility] Obstetrics [id number] [place] 10:30:00 10:30:00 t; Margarita SCHMIDT i, M.D. Gynecology Mandie Rueda M.D. [facility] 2019-07-16 2019-07-16 Fiordaliza CLEMONS [facility] [id number] [place] 15:30:00 15:30:00 t; YAN BEEBE Ph, ans ALIJANA, NP 2019-06-27 2019-06-27 Fiordaliza YeungULFIQAR, [facility] [id number] [place] 13:00:00 13:00:00 t; Milena JIMENEZ [facility]IM[facility]Z M.D. [place] 2019-06-17 2019-06-17 Fiordaliza VARGAS [facility] Multispecia [id number] [place] 12:00:00 12:00:00 t; JOSELO VARGAS, [facility] - Physi Milena JOSUE Internation evens [facility] 2019-05-13 2019-05-13 Fiordaliza CLEMONS, [facility] [id number] [place] 11:00:00 11:00:00 t; YAN BEEBE Ph, ans ALIJANA, NP 2019-05-09 2019-05-09 [facility] [id number] [place] 10:45:00 10:45:00 t; ANABEL ARIAS M.D. Physici HAJAR, ans M.D. 2019-05-02 2019-05-02 [facility] [id number] [place] 15:00:00 15:00:00 t; FRED [place] - [facility] codie VERA M.D. [place] Kenneth Tinsley M.D. [place] 2019-04-28 2019-04-28 Emergency E MHBL MHBL [id number] MHBL 12:36:00 12:36:00 2019-04-15 2019-04-15 Fiordaliza CORONEL [facility] Women's [id number] [place] 15:40:00 15:40:00 t; ASHLEY [place] - Kade CORONEL M.D. [place] evens RAMIREZ M.D. 2019-02-26 2019-02-26 Fiordaliza ARIAS [facility] [id number] [place] 10:30:00 10:30:00 t; ANABEL ARIAS M.D. Physici HAJAR, ans M.D. 2018-12-31 2018-12-31 Appointchika CAPELLAN, [facility] Women's [id number] [place] 15:00:00 15:00:00 t; Blank PICHARDO - Physi rachel CAPELLAN M.D. [facility] Kenneth PICHARDO M.D. [place] 2018-12-25 2018-12-25 Fiordaliza CLEMONS, [facility] UTP [id number] [place] 13:30:00 13:30:00 t; [facility], [facility] YAN BEEBE 2018-12-20 2018-12-20 Appointchika MED [facility] Centralized [id number] [place] 11:30:00 11:30:00 t; MED PROVIDER, Case Phys ici PROVIDER, TCM Management [facility] TCM 2018-12-08 2018-12-08 [facility]patient [facility] [id number] MH 20:00:00 11:53:00 2018-11-27 2018-11-27 Appointchika CEDENO, [facility] [id number] [place] 13:45:00 13:45:00 t; NATHALIA CEDENO Phy sici SAUMYA, M.D. ans M.D. 2018-11-27 2018-11-27 AppointAILIN Edwards Multispecia [id number] [place] 10:30:00 10:30:00 t; JOSELO VARGAS lty - Physi rachel JOSUE M.D. Internation evens [facility] 2018-11-26 2018-11-26 AppointAILIN Nettles Non-Invasiv [id number] [place] 13:30:00 13:30:00 t; CÉSAR NON-INVASIV e - [place] Physici NON-INVASI E [facility] 2018-11-26 2018-11-26 Appointchika SIDHU, [facility] Family [id number] [place] 10:30:00 10:30:00 t; Milena JIMENEZ Medicine - Physicamber SIDHU [place] Kenneth Best M.D. [place] 2018-11-01 2018-10-31 Inpatient E [facility] CAR [id number] MHH 10:09:00 20:37:00 2018-09-09 2018-09-09 Appointchika WONG, [facility] [id number] [place] 09:20:00 09:20:00 t; JORDI WONG, Ph Milena Villanueva M.D. 2018-04-23 2018-04-23 Appointmen ALICIAAILIN [facility] [id number] [place] 13:00:00 13:00:00 t; JOSELO VARGAS, [facility] and Ph milagros JOSUE M.D. Wellness evens [facility] 2018-03-06 2018-03-06 Appointmen AILIN VARGAS [facility] [id number] [place] 12:00:00 12:00:00 t; JOSELO VARGAS Physi Milena Pettit M.D. 2018-02-19 2018-02-19 AppointAILIN Edwards [facility] [id number] [place] 11:30:00 11:30:00 t; JOSELO VARGAS Physi ci SHAOJIE, M.D. ans M.D. 2018-02-19 2018-02-19 AppointAILIN Edwards [facility] [id number] [place] 11:30:00 11:30:00 t; JOSELO VARGAS Physi ci SHAOJIE, M.D. ans M.D. 2017-12-26 2017-12-26 AppointKARINE Payan UTP [facility] [id number] [place] 14:30:00 14:30:00 t; Milena SCHMIDT i, M.D. [facility] 2017-11-30 2017-11-30 AILIN Santamaria Family [id number] [place] 13:00:00 13:00:00 t; Milena JIMENEZ Medicine P evens Garcia M.D. 2017-11-21 2017-11-21 AILIN Feliz Psychiatry [id number] [place] 11:00:00 11:00:00 t; JOSELO VARGAS Physi ci SHAOJIE, M.D. ans MBud 2017-11-06 2017-11-06 AILIN Feliz [facility] [id number] [place] 12:00:00 12:00:00 t; JOSELO VARGAS Physi ci SHAOJIE, M.D. ans MBud 2017-08-30 2017-08-30 AppointAILIN Resendiz [facility] [id number] [place] 10:00:00 10:00:00 t; Blank PICHARDO i, M.D. ans GAZALA, M.D. 2017-08-06 2017-08-06 AppointAILIN Edwards [facility] [id number] [place] 14:00:00 14:00:00 t; JOSELO VARGAS Physi Milena Pettit M.D. 2017-08-06 2017-08-06 Appointmen AILIN WONG Cardiology [id number] [place] 10:40:00 10:40:00 t; JORDI WONG, Milena Godwin M.D. 2017-07-27 2017-07-27 Fiordaliza SIDHU, AILIN Family [id number] [place] 10:30:00 10:30:00 t; Milena JIMENEZ ans AMBER, M.D. 2017-06-26 2017-06-26 AILIN Feliz UTP [id number] [place] 13:30:00 13:30:00 t; JOSELO VARGAS Physi ci SHAOJIE, M.D. ans M.D. 2017-04-24 2017-04-24 AppointAILIN Edwards UTP [id number] [place] 12:00:00 12:00:00 t; JOSELO VARGAS Physi ci SHAOJIE, M.D. ans M.D. 2017-01-11 2017-01-11 Fiordaliza SIDHU, AILIN UTP [id number] [place] 13:45:00 13:45:00 t; Milena JIMENEZ Ph, ans AMBER, M.D. 2017-01-02 2017-01-02 Appointmen AILIN VARGAS UTP [id number] [place] 14:00:00 14:00:00 t; JOSELO VARGAS Physi Milena Pettit M.D. 2017-01-02 2017-01-02 Appointmen DA, AILIN UTP [id number] [place] 10:30:00 10:30:00 t; HIRAL ROBERSON, Elbert BLACKMAN, P.ASukhjinder ans P.A. 2016-10-03 2016-10-03 Appointchika SIDHU, UTP UTP [id number] [place] 11:00:00 11:00:00 t; Milena JIMENEZ Ph evens Mariee M.D. 2016-09-27 2016-09-27 Appointmen ALICIA, UTP UTP [id number] [place] 13:00:00 13:00:00 t; JOSELO VARGAS, [facility] Milena Pettit M.D. 2016-09-20 2016-09-20 [facility] NAHUM, UTP UTP [id number] [place] 11:00:00 11:00:00 t; Milena JIMENEZ Ph evens Mariee M.D. 2016-09-05 2016-09-05 [facility] NAHUM, UTP UTP [id number] [place] 14:00:00 14:00:00 t; Milena JIMENEZ Ph evens Mariee M.D. 2016-07-28 2016-07-28 [facility] NAHUM, UTP UTP [id number] [place] 10:45:00 10:45:00 t; Milena JIMENEZ Ph evens Mariee M.D. 2016-07-28 2016-07-28 Appointmen ESSEL, UTP UTP [id number] [place] 09:30:00 09:30:00 t; BLANCA SCHMIDT, Ph Milena Cruz M.D. 2016-06-28 2016-06-28 Appointmen VOWELS, UTP UTP [id number] [place] 10:00:00 10:00:00 t; VOWELRAGHAVENDRA Herzog P hysici PATRICIA, M.D. ans M.D. 2016-06-16 2016-06-16 Samimen ROMI BUTLER, UTP UTP [id number] [place] 14:30:00 14:30:00 t; Milena BRADY ans VERA, M.D. 2016-01-13 2016-01-13 [facility] Maria Elena UTP UTP [id number] [place] 15:00:00 15:00:00 t; Titus calvillo Phys ici Montalvo-C M.D. ans Titus phelps M.D. 2015-11-16 2015-11-16 [facility] Maria Elena UTP UTP [id number] [place] 10:30:00 10:30:00 t; Titus calvillo Phys ici Montalvo-C M.D. ans hen, Rolf, M.D. 2015-09-29 2015-09-29 [facility] MUNIRA UTP UTP [id number] [place] 12:00:00 12:00:00 t; GABRIELLA Physi ci SHACKELFOR M.D. ans D, JAMES, M.D. 2015-07-26 2015-07-26 [facility] DELICIA, [facility] UTP [id number] UT 13:30:00 13:30:00 t; Jordi GUSMAN i, M.D. ans ROBERT, M.D. Results Test Description Test Time Test Comments Results Result Comments Source POCT MOLECULAR FLU 2022-11-26 16:49:50 Test Item Value Reference Range Interpretation Comme nts POCT Molecular FluA (test code = 11008-1) Negative Negative POCT Molecular FluB (test code = 97423-2) Negative Negative Lab Interpretation (test code = 06744-0) Normal [facility] MOLECULAR [id number] 16:43:58 Test Item Value Reference Range Interpretation Comments POCT Molecular Strep (test code = Negative Negative 74554-5) Lab Interpretation (test code = Normal 56812-8) [facility] SARS-COV-2 ANTIGEN (BINAX NOW)2022-11-26 16:20:00 Test Item Value Reference Range Interpretation Comments POCT SARS-COV-2 ANTIGEN (test Not Detected Not Detected code = 58037-1) On board controls acceptable Yes with C Line (test code = 3574) Lab Interpretation (test code = Normal 85567-8) [facility] 2 [id number] 09:04:00 [facility] : 1985 Sex: F [facility] [address] [place] [address] Patient Name: CHRISTA MIRELES MR #: [id number] : 1985 Age/Sex: 36/F Req #: [id number] Adm Physician: DAVID SANCHEZ MD Ordered by: CHERI SAHU BOILERMAKER APPRENTICE Report #: [id number] Location: MED/SURG2 Room/Bed: [facility] Procedure: [id number] DX/CHEST 2 VIEWS Exam Date: 08/31/21 Exam [...] KELLY on 08/31/21903 COPY TO: CHERI SAHU NPBlood leukocytes automated count (number/volume) 2021-08-31 06:16:00 Test Item Value Reference Range Interpretation Comments White Blood Count (test code = 6690-2) 3.81 4.8-10.8 [facility] automated count (number/volume)2021-08-31 06:16:00 Test Item Value Reference Range Interpretation Comments Red Blood Count (test code = 789-8) 4.45 3.6-5.1 [facility] CenterBlood hemoglobin measurement (moles/volume) 2021-08-31 06:16:00 Test Item Value Reference Range Interpretation Comments Hemoglobin (test code = 83065-3) 12.7 12.0-16.0 [facility] CenterAutomated blood hematocrit (volume fraction) 2021-08-31 06:16:00 Test Item Value Reference Range Interpretation Comments Hematocrit (test code = 4544-3) 41.2 34.2-44.1 [facility] CenterAutomated erythrocyte mean corpuscular volume 2021-08-31 06:16:00 Test Item Value Reference Range Interpretation Comments Mean Corpuscular Volume (test code = 92.6 81-99 787-2) [facility] CenterAutomated erythrocyte mean corpuscular hemoglobin (mass per erythrocyte)2021-08-31 06:16:00 Test Item Value Reference Range Interpretation Comments Mean Corpuscular Hemoglobin (test code 28.5 28-32 = 785-6) [facility] CenterAutomated erythrocyte mean corpuscular hemoglobin concentration measurement (mass/volume)2021-08-31 06:16:00 Test Item Value Reference Range Interpretation Comments Mean Corpuscular Hemoglobin Concent 30.8 31-35 (test code = 786-4) [facility] CenterRDW NsnOe-Jis9724-41-08 06:16:00 Test Item Value Reference Range Interpretation Comments Red Cell Distribution Width (test code 14.3 11.7-14.4 = 32643-5) [facility] CenterAutomated blood platelet count (count/volume) 2021-08-31 06:16:00 Test Item Value Reference Range Interpretation Comments Platelet Count (test code = 777-3) 182 140-360 [facility] CenterAutomated blood segmented neutrophil count as percentage of total hbzobifdkc8207-21-78 06:16:00 Test Item Value Reference Range Interpretation Comments Neutrophils (%) (Auto) (test code = 46.2 38.7-80.0 62149-4) [facility] CenterAutomated blood lymphocyte count as percentage ot total ounqfidvpn7475-30-87 06:16:00 Test Item Value Reference Range Interpretation Comments Lymphocytes (%) (Auto) (test code = 41.7 18.0-39.1 736-9) [facility] CenterAutomated blood monocyte count as percentage of total ktejyvdqha3498-64-28 06:16:00 Test Item Value Reference Range Interpretation Comments Monocytes (%) (Auto) (test code = 9.2 4.4-11.3 5905-5) [facility] CenterAutomated blood eosinophil count as percentage of total jxzgralzpk4236-07-80 06:16:00 Test Item Value Reference Range Interpretation Comments Eosinophils (%) (Auto) (test code = 1.6 0.0-6.0 713-8) [facility] CenterAutomated blood basophil count as percentage of total djjdjieszc3791-23-75 06:16:00 Test Item Value Reference Range Interpretation Comments Basophils (%) (Auto) (test code = 0.3 0.0-1.0 706-2) [facility] CenterFluoroscopic procedure less than one hour adtrwwqi6828-39-04 06:16:00 Test Item Value Reference Range Interpretation Comments IM GRANULOCYTES % (test code = IM 1.0 0.0-1.0 GRANULOCYTES %) [facility] CenterAutomated blood neutrophil ntido0590-96-76 06:16:00 Test Item Value Reference Range Interpretation Comments Neutrophils # (Auto) (test code = 1.8 2.1-6.9 751-8) [facility] CenterBlood lymphocytes count (number/volume) 2021-08-31 06:16:00 Test Item Value Reference Range Interpretation Comments Lymphocytes # (Auto) (test code = 1.6 1.0-3.2 08176-2) [facility] CenterBlood monocytes automated count (number/volume)2021-08-31 06:16:00 Test Item Value Reference Range Interpretation Comments Monocytes # (Auto) (test code = 742-7) 0.4 0.2-0.8 [facility] CenterAutomated blood eosinophil deiyz3270-23-18 06:16:00 Test Item Value Reference Range Interpretation Comments Eosinophils # (Auto) (test code = 0.1 0.0-0.4 711-2) [facility] CenterAutomated blood basophil count (count/volume) 2021-08-31 06:16:00 Test Item Value Reference Range Interpretation Comments Basophils # (Auto) (test code = 704-7) 0.0 0.0-0.1 [facility] CenterFluoroscopic procedure less than one hour fclklddv5848-78-94 06:16:00 Test Item Value Reference Range Interpretation Comments Absolute Immature Granulocyte (auto 0.04 0-0.1 (test code = Absolute Immature Granulocyte (auto) [facility] plasma sodium measurement (moles/volume)2021-08-31 06:16:00 Test Item Value Reference Range Interpretation Comments Sodium Level (test code = 2951-2) 143 136-145 [facility] Budaerum or plasma potassium measurement (moles/volume)2021-08-31 06:16:00 Test Item Value Reference Range Interpretation Comments Potassium Level (test code = 2823-3) 4.1 3.5-5.1 [facility]udaerum or plasma chloride measurement (moles/volume)2021-08-31 06:16:00 Test Item Value Reference Range Interpretation Comments Chloride Level (test code = 2075-0) 107 98-107 [facility] Budaerum or plasma carbon dioxide, total measurement (moles/volume)2021-08-31 06:16:00 Test Item Value Reference Range Interpretation Comments Carbon Dioxide Level (test code = 27 22-29 8-9) [facility]udaerum or plasma anion rlj0773-91-18 06:16:00 Test Item Value Reference Range Interpretation Comments Anion Gap (test code = 76516-2) 13.1 8-16 [facility]udaerum or plasma urea nitrogen measurement (mass/volume)2021-08-31 06:16:00 Test Item Value Reference Range Interpretation Comments Blood Urea Nitrogen (test code = 9 7-26 3094-0) [facility]udaerum or plasma creatinine measurement (mass/volume)2021-08-31 06:16:00 Test Item Value Reference Range Interpretation Comments Creatinine (test code = 2160-0) 0.66 0.57-1.11 [facility]udaerum or plasma urea nitrogen/creatinine mass swcvc2558-66-09 06:16:00 Test Item Value Reference Range Interpretation Comments BUN/Creatinine Ratio (test code = 14 6-25 3097-3) [facility] CenterEstimated glomerular filtration rate (GFR) dpyxuybciagoh5721-04-61 06:16:00 Test Item Value Reference Range Interpretation Comments Estimat Glomerular 100 See_Comment [Automat ed message] The Filtration Rate (test system which generated code = 772312776) this resul t transmitted reference range : 60-. The reference r jeannie was not used to int erpret this result as normal/abnormal . [facility] CenterGlucose ytzwvfcaste9150-88-04 06:16:00 Test Item Value Reference Range Interpretation Comments Glucose Level (test code = FWR4158) 78 74-118 [facility]udaerum or plasma calcium measurement (mass/volume)2021-08-31 06:16:00 Test Item Value Reference Range Interpretation Comments Calcium Level (test code = 34418-3) 7.9 8.4-10.2 [facility] CenterFluoroscopic procedure less than one hour ukkyulkz0571-29-74 06:23:00 Test Item Value Reference Range Interpretation Comments Hemoglobin A1c Percent (test code = 5.0 4.0-7.0 Hemoglobin A1c Percent) [facility] CenterPhosphorus jxujihweiiw3311-38-88 06:23:00 Test Item Value Reference Range Interpretation Comments Phosphorus Level (test code = PQM7771) 3.7 2.3-4.7 [facility] Budaerum or plasma magnesium measurement (mass/volume)2021-08-30 06:23:00 Test Item Value Reference Range Interpretation Comments Magnesium Level (test code = 44093-9) 1.9 1.3-2.1 [facility] Budaerum or plasma total bilirubin measurement (mass/volume)2021-08-30 06:23:00 Test Item Value Reference Range Interpretation Comments Total Bilirubin (test code = 1975-2) 0.5 0.2-1.2 [facility] CenterFluoroscopic procedure less than one hour vwwojfwe0518-49-39 06:23:00 Test Item Value Reference Range Interpretation Comments Aspartate Amino Transf (AST/SGOT) (test 28 5-34 code = Aspartate Amino Transf (AST/SGOT)) [facility]udaerum or plasma alanine aminotransferase measurement (enzymatic activity/volume)2021-08-30 06:23:00 Test Item Value Reference Range Interpretation Comments Alanine Aminotransferase (ALT/SGPT) 26 0-55 (test code = 1742-6) [facility]udaerum or plasma protein measurement (mass/volume)2021-08-30 06:23:00 Test Item Value Reference Range Interpretation Comments Total Protein (test code = 2885-2) 6.3 6.5-8.1 [facility]uda[facility]um or plasma albumin measurement (mass/volume)2021-08-30 06:23:00 Test Item Value Reference Range Interpretation Comments Albumin (test code = 1751-7) 3.6 3.5-5.0 [facility] CenterPlasma globulin measurement (mass/volume) 2021-08-30 06:23:00 Test Item Value Reference Range Interpretation Comments Globulin (test code = 71206-9) 2.7 2.3-3.5 [facility]udaerum or plasma albumin/globulin mass ratio 2021-08-30 06:23:00 Test Item Value Reference Range Interpretation Comments Albumin/Globulin Ratio (test code = 1.3 0.8-2.0 1759-0) [facility]udaerum or plasma alkaline phosphatase measurement (enzymatic activity/volume)2021-08-30 06:23:00 Test Item Value Reference Range Interpretation Comments Alkaline Phosphatase (test code = 46 40-150 6768-6) [facility]udaerum or plasma triglyceride measurement (mass/volume)2021-08-30 06:23:00 Test Item Value Reference Range Interpretation Comments Triglycerides Level (test code = 157 0-149 2571-8) [facility]udaerum or plasma cholesterol measurement (mass/volume)2021-08-30 06:23:00 Test Item Value Reference Range Interpretation Comments Cholesterol Level (test code = 2093-3) 171 0-199 [facility] Budaerum or plasma cholesterol in LDL measurement (mass/volume)2021-08-30 06:23:00 Test Item Value Reference Range Interpretation Comments LDL Cholesterol (test code = 2089-1) 105 60-130 [facility] Budaerum or plasma cholesterol in HDL measurement (mass/volume)2021-08-30 06:23:00 Test Item Value Reference Range Interpretation Comments HDL Cholesterol (test code = 2085-9) 35 40-60 [facility]udaerum or plasma total cholesterol/cholesterol in HDL mass ccwys7643-81-04 06:23:00 Test Item Value Reference Range Interpretation Comments Cholesterol/HDL Ratio (test code = 4.9 3.0-3.6 9830-1) [facility]udaerum or plasma thyrotropin measurement by detection limit <= 0.005 miu/l (units/volume)2021-08-30 06:23:00 Test Item Value Reference Range Interpretation Comments Thyroid Stimulating Hormone (TSH) (test 1.325 0.350-4.940 code = 31470-1) [facility] CenterCHEST SINGLE (PORTABLE)2021-08-29 11:04:00 [facility] : 1985 Sex: F [place] [address] Patient Name: CHRISTA MIRELES MR #: [id number] : 1985 Age/Sex: 36/F Req #:[id number] Adm Physician: DAVID SANCHEZ MD Ordered by: CHRISTINE YANEZ MD Report #: [id number] Location: MED/SURG2 Room/Bed: [facility] Procedure: [id number] DX/CHEST SINGLE (PORTABLE) Exam Date: 08/29/21 Exam Time: 945 REPORT STATUS: Signed Exam: CHEST SINGLE (PORTABLE) [...] 11:04 AM Dictated By: FERNANDO TAPIA MD 1107 Transcribed By: Link_A_ MediaRIBE on 08/29/21 1104 COPY TO: CHRISTINE YANEZ MDTroponin I measurement by highly sensitive enzyme otsreiavcic6573-19-85 15:33:00 Test Item Value Reference Range Interpretation Comments Troponin I (test code = 67753-2) 0.100 0-0.300 [facility] SINGLE (PORTABLE)2021-08-27 13:11:00 [facility] : 1985 Sex: F [facility] [address] [place], [place] [address] Patie nt Name: CHRISTA MIRELES MR #: [id number] : 1985 Age/Sex: 36/F Req #:[id number] Adm Physician: DAVID SANCHEZ MD Ordered by: CHRISTINE YANEZ MD Report #: [id number] Location:MED/SURG2 Room/Bed: [facility] Procedure: [id number] DX/CHEST SINGLE (PORTABLE) Exam Date: 08/27/21 Exam [...] COPY TO: CHRISTINE YANEZ MD COMPREHENSIVE METABOLIC [id number] 20:48:00 Test Item Value Reference Range Interpretation [...] units: RATE (test code = GFR) mL/mi n/1.73m\\S\\2 (Modified MDRD Formula) CREATININE (test code 0.80 [...] N TOTAL (test code = ALKP) Coronavirus 2018 nCoV [id number] 20:47:00 Test Item Value Reference Range Interpretation Comments Coronavirus 2018 Positive Negative A ID NOW COVI D-19 assay nCoV Bedside (test performed on the ID NOW code = [id number]) Instrum ent lala rapid molecular in vi tro diagnostic test utilizing anisothermal nu cleic acid amplification t echnology intendedfor the qualitative det ection of nucleic acid fr om hgjCLGU-RuM-8 v iral RNA in direct nasal , [...] , and epidemiological informatio n. CBC W/AUTO [id number] 20:40:00 Test Item Value Reference Range Interpretation [...] x10 3/uL 0.0-0.2 - XR CHEST 1 [id number] 20:28:00 [facility] 1985 Sex: F Patient Name: CHRISTA MIRELES Unit No: [id number] EXAMS: CPT CODE: [id number] XR CHEST 1 V 67885 Reason: cough EXAM: - XR CHEST 1 [...] CC: Clarissa Montesinos DO Technologist: DANIELE Cordova TrscrptDt/ ([email or web address] Orig Print D/T: S: 08/24/2021 (2030) [place] FSED NAME: CHRISTA MIRELES [address] PHYS: Clar[place] [address] : 1985 AGE: 36SEX: F LOC: D.RER PHONE #: EXAM DATE: 08/24/2021 STATUS: PRE ER FAX #: RAD NO:DC Dt: PAGE 1 Signed Report[QL] MICROALBUMIN, RANDOM URINE (W/CREATININE) 2019-10-23 11:31:00 Test Item Value Reference Range Interpretation [...] to bewi thin a diagnostic christin gory. [facility][QL] LIPID [id number] 13:21:00 Test Item Value Reference Range Interpretation Comments CHOLESTEROL, TOTAL; 155 mg/dl <200 N Normal (test code = 2093-3) HDL CHOLESTEROL; 44 mg/dl > OR = 50 Below Low Threshold (test code = 2085-9) TRIGLYCERIDES; 64 mg/dl <150 N Normal (test code = 2571-8) LDL-CHOLESTEROL; 96 {MG/DL JAX} N Reference range: Normal (test code = <100 Sarmad irable range 29279-0) <100 mg/dL for primary prevent ion; <70 mg/dL for patients with C HD or diabetic patien ts with > or = 2 C HD risk factors. L DL-C is now calculat ed using the Abran-Silva calculation, wh ich is a validated novel method providin g better accuracy than the Friedewald equation in the estimation of L DL-C. Abran SS et al . LEONARDO. 2013;310( 19): 1589-9529 (http://educati on.[employer]. com/f aq/ICQ977) CHOL/HDLC RATIO 3.5 {CALC} <5.0 N (test code = CHOL/HDLC RATIO) NON HDL CHOLESTEROL 111 {MG/DL <130 N For zuly ents with (test code = NON HDL JAX} diabete s plus 1 CHOLESTEROL) major ASCVD ris k factor, treatin g to a non-HDL-C goa l of <100 mg/dL (LDL -C of <70 mg/dL) is considered a therapeutic opt ion. [facility][QL] HEPATITIS C [id number] 13:21:00 Test Item Value Reference Range Interpretation Comments HEPATITIS C NON-REACTIVE NON-REACTIVE N ANTIBODY; Normal (test code = 81862-4) SIGNAL TO CUT-OFF 0.02 <1.00 N HCV antibo dy was (test code = SIGNAL non-reac tive. There TO CUT-OFF) is no laborator y evidence of HCV infection. In m ost cases, no furth er action is requi red. However,if rece nt HCV exposure is suspected, a te [place] HCV RNA([place] [address]) is sugtrung jaind. For additional information ple ase refer tohttp://educat ion.[employer]. [employer]/fa q/UGZ87y8(This link is being provid ed for informational/e ducati onal purposes o nly.) [facility][QL] HEMOGLOBIN [id number] 13:21:00 Test Item Value Reference Range Interpretation [...] di abetes in children. Ac cording to [place] [employer] Association (ADA)guidelines , hemoglobin A1c <7.0% represents optimalcontrol in non- di abetic patients. Differentmetric s may apply to specif ic patient populat ions. Standards of Me dical Care in Diabete s(ADA). [facility]] URINALYSIS, [id number] 16:20:01 Test Item Value Reference Range Interpretation Comments UA Turbidity (test code = 09024-9) Clear Clear UA Spec Grav (test code = 5810-7) 1.012 <=1.030 UA pH (test code = 5803-2) 7.0 5.0-8.0 UA Protein (test code = 94165-0) Negative Negative UA Glucose (test code = 30107-2) Negative Negative UA Ketones (test code = 25198-2) Negative Negative UA Bili (test code = 5770-3) Negative Negative UA Blood (test code = 5794-3) Negative Negative UA Nitrite (test code = 5802-4) Negative Negative UA Leuk Est (test code = 5799-2) Negative Negative UA RBC (test code = 24256-8) 1 {/HPF} 0-2 UA WBC (test code = 00250-8) <1 0-5 UA Bacteria (test code = 17290-7) Occasional None Seen UA Mucus (test code = 8247-9) Few None Seen UA Sq Epi (test code = 60725-5) Occasional Few UA Color (test code = 5778-6) Ltyellow UROBILINOGEN (test code = 06167-8) <=1.0 0.1-1.0 [facility]] CULTURE, URINE, [id number] 16:20:01 Test Item Value Reference Range Interpretation Comments FINAL REPORT (test code = FINAL No Growth REPORT) [facility]. [facility] - [id number] 00:00:00 Test Item Value Reference Range Interpretation Comments Case (test code = Click ImageLink button N Case) for report. Specimen 1 (test code Click ImageLink button N = Specimen 1) for report. [facility] Pelvis with Pelvis Transvaginal [id number] 12:40:00 PROCEDURE INFORMATION:Exam: US Pelvis Complete, Transabdominal [...] ovarian cyst.Manolo Mckeon MD On 04/29/2019 15:51:15; [id number]--Ejay by: Manolo Mckeon MDDictated Date/time: 04/29/19 15:51Electronically Signed by: Manolo Mckeon MD 04/29/2014:51FINAL REPORT[facility]] CULTURE, URINE, ROUTINE 2019-01-03 03:00:00 Test Item Value Reference Range Interpretation Comments CULTURE (test code See Comment CULTURE, URINE, ROUTINE = CULTURE) MICRO NUMBER: [id number] TEST STATUS: FI NAL SPECIMEN SOURCE : URINE SPECIMEN QUALIT Y: ADEQUATE RESULT : No GrowthNO COLLEC TION DATE RECEIVED. WE HUIZAR VE USEDTHE DATE TH E SPECIMEN WAS RE CEIVED BY [facility] THE COLLECTION DATE . IF THISIS INCORREC T, PLEASE CONTACT CLIENT SERVICES.PHONE NUMBER: [phone] [facility][O] Urine Dipstick (In Office)2018-12-31 00:00:00 Test Item Value Reference Range Interpretation Comments Glucose (test code = Glucose) negative N LEUKOCYTES (test code = LEUKOCYTES) negative N NITRITE; Normal (test code = negative N 45444-9) UROBILINOGEN; Normal (test code = 0.2 N 99023-3) PROTEIN; Normal (test code = negative N 45851-1) pH (test code = pH) 5.5 N URINE BLOOD; Normal (test code = trace N 43586-0) SPECIFIC GRAVITY; Normal (test code 1.030 N = 2965-2) KETONES; Normal (test code = negative N 10569-6) BILIRUBIN; Normal (test code = negative N 21700-9) [facility]] URINALYSIS, [id number] 08:48:00 Test Item Value Reference Range Interpretation Comments COLOR; Normal (test code = 5778-6) YELLOW YELLOW N APPEARANCE (test code = APPEARANCE) CLEAR CLEAR N SPECIFIC GRAVITY; Normal (test code 1.015 1.001-1.035 N = 2965-2) PH; Normal (test code = 2756-5) 8.0 5.0-8.0 N GLUCOSE; Normal (test code = NEGATIVE NEGATIVE N 1547-9) BILIRUBIN; Normal (test code = NEGATIVE NEGATIVE N 63953-3) KETONES; Normal (test code = NEGATIVE NEGATIVE N 80898-1) OCCULT BLOOD; Abnormal (test code = 3+ NEGATIVE A 68978-1) PROTEIN; Abnormal (test code = 1+ NEGATIVE A 47918-8) NITRITE; Normal (test code = NEGATIVE NEGATIVE N 32181-2) LEUKOCYTE ESTERASE (test code = NEGATIVE NEGATIVE N LEUKOCYTE ESTERASE) WBC; Normal (test code = 6690-2) 0-5 < OR = 5 N RBC; Abnormal (test code = 789-8) 3-10 < OR = 2 A SQUAMOUS EPITHELIAL CELLS (test 0-5 < OR = 5 code = 51593-6) BACTERIA; Abnormal (test code = FEW NONE SEEN A 630-4) HYALINE CAST; Normal (test code = NONE SEEN NONE SEEN N 64882-1) [facility]] CULTURE, URINE, [id number] 08:48:00 Test Item Value Reference Range Interpretation Comments CULTURE (test See Comment A CULTURE, URINE , ROUTINE code = CULTURE) MICRO NUMBER : [id number] TEST STATUS: FI NAL SPECIMEN SOURCE : [...] < =1 CIPROFLOXACIN R >=4 GENTAMICIN S < =1 IMIPENEM I 2 LE VOFLOXACIN R >=8 NITROFURA NTOIN R 64 PIP/TAZOBACTAM S <=4 TOBRAMYCIN S <= 1 TRIMETHOPRIM/WALSH LFA S 40S=Susceptible I=Intermediate R=Resistant * = Not TestedNR = Not Reported NN = See Ther apy CommentsTHERAPY COMMENTS Note 1: For inf ections other than unco mplicated UTI caused by E . coli, K. pneumoniae or P . mirabilis: Cefa zolin is resistant if TN C > or = 8 mcg/mL. (Distin [...] doxime, cefprozil, cefu roxime, cephalexin and loracarbef. [facility]] LIPID [id number] 11:26:00 Test Item Value Reference Range Interpretation Comments CHOLESTEROL, TOTAL; 187 mg/dl <200 N Normal (test code = 2093-3) HDL CHOLESTEROL; 53 mg/dl >50 N Normal (test code = 2085-9) TRIGLYCERIDES; 74 mg/dl <150 N Normal (test code = 2571-8) LDL-CHOLESTEROL; 117 {MG/DL Reference r jeannie: Above High Threshold JXA} <100 De sirable range (test code = <100 mg/[place] [address]-5) primary prevent ion; <70 mg/dL for patients with C HD or diabetic patien ts with > or = 2 C HD risk factors. L DL-C is now calculat ed using the Jacque calculation, wh ich is a validated novel method providin g better accuracy than the Friedewald equation in the estimation of L DL-C. Abran MCMAHAN et al . LEONARDO. 2013;310( 19): 2129-0395 (http://educati on.[employer]. com/f aq/ZIQ982) CHOL/HDLC RATIO 3.5 {CALC} <5.0 N (test code = CHOL/HDLC RATIO) NON HDL CHOLESTEROL 134 {MG/DL <130 For zuly ents with (test code = NON HDL JAX} diabete s plus 1 CHOLESTEROL) major ASCVD ris k factor, treatin g to a non-HDL-C goa l of <100 mg/dL (LDL -C of <70 mg/dL) is considered a therapeutic opt ion. [facility]] CMP [id number] 11:26:00 Test Item Value Reference Range Interpretation Comments GLUCOSE; Normal 86 mg/dl 65-139 N Non-fasting (test code = reference inter [place] 1547-9) UREA NITROGEN (BUN) 11 mg/dl 7-25 N (test code = UREA NITROGEN (BUN)) CREATININE (test 0.60 mg/dl 0.50-1.10 N code = CREATININE) eGFR NON- 118 {ML/MIN/1.7} > OR = 60 N GABONESE (test code = eGFR NON-) eGFR 137 {ML/MIN/1.7} > OR = 60 N GABONESE (test code = eGFR ) BUN/CREATININE NOT [...] mg/dl 0.2-1.2 N Normal (test code = 14733-2) ALKALINE PHSPHATASE 58 u/l 33-115 N (test code = ALKALINE PHSPHATASE) AST; Normal (test 18 u/l 10-30 N code = 1916-6) ALT; Normal (test 12 u/l 6-29 N code = 1742-6) [facility][QL] TSH, 3RD GENERATION W/REFLEX TO [id number] 11:26:00 Test Item Value Reference Range Interpretation Comments TSH, 3RD GENERATION 0.89 {MIU/L} N Referenc e Range > or W/REFLEX TO FT4 (test = 20 Y ears 0.40-4.50 code = TSH, 3RD Ra nges GENERATION W/REFLEX First tr imester TO FT4) 0.26-2.66 Secon d trimester 0.55- 2.73 Third trimester 0.43-2.91 [facility][QL] URINALYSIS, [id number] 16:42:01 Test Item Value Reference Range Interpretation Comments UA Turbidity (test code = 80692-8) Clear Clear UA Spec Grav (test code = 5810-7) 1.003 <=1.030 UA pH (test code = 5803-2) 6.0 5.0-8.0 UA Protein (test code = 38865-0) Negative Negative UA Glucose (test code = 91197-8) Negative Negative UA Ketones (test code = 23263-7) Negative Negative UA Bili (test code = 5770-3) Negative Negative UA Blood (test code = 5794-3) Negative Negative UA Nitrite (test code = 5802-4) Negative Negative UA Leuk Est (test code = 5799-2) Negative Negative UA WBC (test code = 86360-3) <1 0-5 UA Bacteria; Abnormal (test code = Many None Seen A 08636-5) UA Sq Epi (test code = 90958-2) Occasional Few UA Color (test code = 5778-6) Ltyellow UROBILINOGEN (test code = 92146-4) <=1.0 0.1-1.0 [facility]] CULTURE, URINE, [id number] 16:42:01 Test Item Value Reference Range Interpretation Comments FINAL REPORT (test Specimen contains 3 or code = FINAL more potential pathogens; REPORT) recommend correlation withurinalysis; if catheterized specimen recommend removal and recollection. Ifclinical situation warrants please call the laboratory for further testing. COMicrobiology [phone]. [facility][O] Urine Dipstick (In Office)2017-11-30 13:20:00 Test Item Value Reference Range Interpretation Comments Glucose (test code = Glucose) N N LEUKOCYTES (test code = LEUKOCYTES) N N NITRITE; Normal (test code = 15107-4) N N UROBILINOGEN; Normal (test code = N N 34326-7) PROTEIN; Normal (test code = 49652-2) N N pH (test code = pH) 6.0 N URINE BLOOD; Normal (test code = N N 19856-3) SPECIFIC GRAVITY; Normal (test code = 1.015 N 2965-2) KETONES; Normal (test code = 09453-6) N N BILIRUBIN; Normal (test code = N N 01518-5) COLOR URINE; Normal (test code = YELLOW N 5778-6) APPEARANCE; Normal (test code = CLEAR N 5767-9) [facility][O] Urine Dipstick (In Office)2017-08-30 10:11:00 Test Item Value Reference Range Interpretation Comments LEUKOCYTES (test code = LEUKOCYTES) Negative N NITRITE; Normal (test code = Negative N 83039-9) PROTEIN; Normal (test code = Negative N 15013-2) URINE BLOOD; Abnormal (test code = Trace A 44409-8) KETONES; Normal (test code = Negative N 22047-5) GLUCOSE; Normal (test code = 1547-9) Negative N [facility] Notes Date/Time Note Provider Source 2022-11-26 1018-45-76S63:34:52Formatting of this [facility] 18:34:52 note might be different from the original.Reviewed results with mother, she states azithromycin is the best for her, due to PCN allergy XR CHEST 2 VWResult Date: 11/26/2022EXAM: XR CHEST 2 VW COMPARISON: None HISTORY: cough FINDINGS: Normal lung volumes. Streaky right lower lung zone airspace opacity. No pleural effusion or pneumothorax. The cardiomediastinal silhouette is mildly enlarged. No focal osseous lesions or acute osseous findings. Right basilar airspace opacity, atelectasis versus pneumonia. Mild cardiomegaly suspected. Preliminary Report Dictated by Resident: Gabriella Tanner I, Mayank Escobar MD., have reviewed this study and agree with the above report. 62505-0Ccwomrnva encounter ZkntRW2176-46-15R04:39:02Telephone encounter NoteTXT1.2.840.016751.1.13.104.2.7.2.727 879|[id number] for patient yqyi53088-1VbhzSLAJRVITEQ[address] [id number] NYINNZSCFIEJGJDYUA6580-52-43H80:39:021.2 .840.205284.1.72.3.15|1.2.840.273231.1.1 3.104.2.7.2.727879_[id number] 2022-11-03 2508-33-84H70:00:00 Addended by: Terrance TSANG 11:00:00 LESTER on: 11/06/2022 12:45 [facility] accepted: Orders [facility] [id number] TgymyiacDJ6089-87-62L35:45:07Addendum DocumentTXT1.2.840.025835.1.13.589.2.7.2 .495523|[id number] for patient dqfb01889-1WxlbOFNXBZTXVauSouthPointe Hospital at Epstdyj[address] #[id number] OCMUHFTMGAA3870-40-57D55:45:071.2.840.11 4350.1.72.3.15|1.2.840.123600.1.13.589.2 .7.2.727879_[id number] 2022-11-03 1790-89-73F21:00:00 Addended by: [facility] 11:00:00 AMY ROUSSEAU on: 11/07/2022 10:48 AM [facility] accepted: [facility] [place] [address]-7Lhppanwo IkrrrqquGG6051-50-51R48:48:41Addendum DocumentTXT1.2.840.356310.1.13.589.2.7.2 .074358|[id number] for patient rjlm21271-1JdmyKLWETILCJcxThe [facility] at Bg[address]vhj[address] [place] [address] #[id number] NZGWZEKMCJH2036-49-81O66:48:411.2.840.11 4350.1.72.3.15|1.2.840.730157.1.13.589.2 .7.2.727879_[id number] 2022-11-03 6196-58-51S46:00:00 Addended by: Hong TSANG [facility] 11:00:00 LESTER on: 11/09/2022 08:12 AM [facility] accepted: Orders [facility] PKN67518-0Sarziywz OcrxxliqFR7886-09-02S74:12:28Addendum DocumentTXT1.2.840.236041.1.13.589.2.7.2 .581691|[id number] for patient ycfp90386-2BtxyFUYMHNMUMtqSouthPointe Hospital at Bpctmfz6151 [facility] #[id number] GLMAMKDNFAV3329-91-43R76:12:281.2.840.11 4350.1.72.3.15|1.2.840.982576.1.13.589.2 .7.2.727879_[id number] 2021-08-24 AC057152-265017889020-21-49Q10:32:00 [facility] 20:32:00 [facility] ([facility])OR A CAMP[facility] PROVIDER REPORTREPORT#:[id number] REPORT STATUS: SignedDATE:08/24/21 TIME: 2031 PATIENT: CHRISTA MIRELES UNIT #: [id number]#: [id number] ROOM/BED:AGE: 36 SEX: F PCP PHYS: No Primary or Family PhysicianSERVICE AUTHOR: Clarissa Montesinos DO * ALL edits or amendments must be made on the electronic/computer document * HPI-General Illness Free Text HPI NotesFree Text HPI NotesPatient is a 36-year-old female who complains of 3 days of a headache followed by fever at home cough and congestion. She has a slightly scratchy sore throat. She has a history of a partial pneumonectomy when she was an her small child. She has reactive airway disease. She also has a history of POTS disease. She is feeling a little weak and lightheaded and dizzy. Her mom is not sure if her p.o. intake has been quite as good over the last few days. She is visiting here on vacation. She has been around another person who has testedpositive for COVID. The patient took a government issued home antigen test today which was positive. GeneralInitial Greet Date/Time 08/24/211954 PresentationChief Complaint Congested, Cough, Fever Review of Systems Free Text ROS NotesFree Text ROS NotesAll other systems reviewed and negative except as documented above in the HPI Past Medical History - AdultStated Complaint PUI, FEVERAllergiesCoded Allergies:NSAIDS (Non-Steroidal Anti-Inflamma (Intermediate, RASH 08/24/21)Penicillins (Intermediate, RASH 08/24/21)hydromorphone (From DILAUDID) (Intermediate, RASH 08/24/21)morphine (Intermediate, ITCHY 08/24/21) Calculated Suicide Risk (nurs) No riskAdditional Medical HistoryReactive airway disease, partial pneumonectomy, pots disease, "mental issues",Smoking status for patients 13 years old or older: Never Smoker Physical Exam Vital SignsVital SignsFirst Documented: Result Date Time Pulse Ox 93 08/24 2002 B/P 101/68 08/24 2002 B/P Mean 79 08/24 2002 Temp 98.2 08/24 2002 Pulse 75 08/24 2002 Resp 18 08/24 2002 Last Documented: Result Date Time Pulse Ox 93 08/24 2002 B/P 101/68 08/24 2002 B/P Mean 79 08/24 2002 Temp 98.2 08/24 2002 Pulse 75 08/24 2002 Resp 18 08/24 2002 Review of Vital Signs Reviewed Free Text PE NotesFree Text PE NotesPhysical examConstitutional: Oriented to person place and time, appears wellHead: Normocephalic/atraumaticENT: External ears are normalMOUTH: Mucous membranes moist lips are slightly dryThroat: No drooling or stridor minimal erythema but no significant erythema exudate or swelling airway is widely patentNeck: Supple, trachea midlineCardiovascular: Intact distal pulses, extremities warm and well-perfused regularrate and rhythmPulmonary/chest: Normal respiratory effort, nonlabored few scattered wheezesAbdomen: Soft, normal appearing, nontenderMusculoskeletal: Moves all extremities, no gross deformityNeurological: Alert, conversant, follows commands, moves all extremities, no gross abnormalitiesSkin: Warm dry and intact sunburn on bilateral forearmsPsychiatric: Cooperative, normal affect Interpretation Diagnostics Lab Results InterpretationResultsLaboratory Tests 08/24/212029:[Embedded Image Not Available] 08/24/212027:[Embedded Image Not Available]Laboratory Tests: 08/24 Chemistry Sodium (133 - 145 MMOL/L) 133 Potassium (3.6 - 5.2 MMOL/L) 4.0 Chloride (100 - 108 MMOL/L) 104 Carbon Dioxide (22 - 32 MMOL/L) 30 BUN (6 - 20 MG/DL) 9 Creatinine (0.60 - 1.00 MG/DL) 0.80 Estimated GFR (MDRD) (64 - 149) 80 Glucose (65 - 99 MG/DL) 107 H Calcium (8.7 - 10.5 MG/DL) 8.3 L Total Bilirubin (0.0 - 1.0 MG/DL) 0.6 AST (15 - 37 Units/L) 33 ALT (30 - 65 Units/L) 26 L Alkaline Phosphatase (50 - 136 Units/L) 65 Total Protein (6.4 - 8.2 G/DL) 6.7 Albumin (3.4 - 5.0 G/DL) 3.8 Hematology WBC (4.80 - 10.80 x10 3/uL) 2.00 L RBC (4.2 - 5.4 x10 6/uL) 4.31 Hgb (12.0 - 16.0 G/DL) 12.2 Hct (37 - 47 %) 38.6 MCV (81 - 99 FL) 89.6 MCH (27 - 31 PG) 28.3 MCHC (33 - 37 G/DL) 31.6 L RDW Coeff of Rosey (11.5 - 14.5 %) 13.5 Plt Count (150 - 450 x10 3/uL) 138 L MPV (7.4 - 10.4 FL) 9.4 Neut % (Auto) (42 - 86 %) 67.9 Lymph % (Auto) (24 - 44 %) 20.7 L [place] % (Auto) (0.0 - 4.0 %) 11.4 H Absolute Neuts (auto) (1.8 - 7.7 x10 3/uL) 1.40 L Absolute Lymphs (auto) (1.0 - 4.8 x10 3/uL) 0.40 L Absolute Monos (auto) (0.0 - 0.8 x10 3/uL) 0.20 Serology SARS CoV-2 RNA Rapid DANNI (Negative) Positive H Recent Impressions:RADIOLOGY - XR CHEST 1 V 08/24 2020 Report Impression - Status: SIGNED Entered: 08/24/20212030 IMPRESSION:No definite focal consolidation.Impression By: [email or web address] - Cal Galvan MD Re-Evaluation MDM Free Text MDM NotesFree Text MDM NotesPatient is a 36-year-old with previous history of pneumonectomy reactive airway disease and pots disease who presents with 3 days of headache congestion cough fever and a positive COVID test at home. She would like to be COVID tested again. She is concerned she might be a little dry as she occasionally feels dizzy. Her sunburn combined with vacation fever and malaise may have left her little dry since she has POTS syndrome I think she would benefit from fluids. We will check basic labs and get a chest x-ray as well. Labs episode count is low at 2 platelets are low 138 chemistry has no significant acute abnormalities and COVID was positive. Patient is at high riskfor progression of her disease and will prescribe the Pfizer oral medication forher chest x-ray shows no focal consolidation pneumonia or other acute abnormality I have him written her prescription for Pfizer's paxlovid since she is at higherrisk to progress to more severe disease. Also have given her prescription for her nebs prednisone and supportive care items ED CourseMedication(s) OrderedMedication(s) Ordered:Electrolytic, Caloric, And Mindi Sig/Logan Start time Last Medication Dose Route Stop Time Status Admin Sodium Chloride 1,000 ML X1ED STA 08/24 2016 DC 08/24 IV 08/24 Eye, Ear, Nose And Throat (Een Sig/Logan Start time Last Medication Dose Route Stop Time Status Admin Dexamethasone Sodium 20 MG X1ED STA 08/24 2105 DC 08/24 Phosphate IV 08/24 Hormones And Synthetic Substit Sig/Logan Start time Last Medication Dose Route Stop Time Status Admin Methylprednisolone 125 MG X1ED STA 08/24 2104 CAN Sodium Succinate IV 08/24 2105 Patient Discharge Departure Vital Signs/ConditionVital SignsFirst Documented: Result Date Time Pulse Ox 93 08/24 2002 B/P 101/68 08/24 2002 B/P Mean 79 08/24 2002 Temp 98.2 08/24 2002 Pulse 75 08/24 2002 Resp 18 08/24 2002 Last Documented: Result Date Time Pulse Ox 93 08/24 2002 B/P 101/68 08/24 2002 B/P Mean 79 08/24 2002 Temp 98.2 08/24 2002 Pulse 75 /2002 Resp 18 08/24 2002 All vital signs available at the time of this entry have been reviewed. Clinical ImpressionClinical ImpressionPrimary Impression: COVID-19Secondary Impressions: Angel disease Disposition DecisionDischarge )( Discharged to Home Yes )( Time 2106 )( Date 08/24/21 Discharge/Care PlanCounseled Regarding Diagnosis, Lab results, Imaging studies, Need for follow-up,When to return to ED(Auto) PrescriptionsCurrent Visit ScriptsIPRATROPIUM (ATROVENT 0.02%) 250 MCG INH RTQ6H PRN sob IPRATROPIUM (ATROVENT 0.02%) 250 MCG INH RTQ6H PRN sob #150 ML ALBUTEROL (ACCUNEB) 1.25 MG INH RTQ6H PRN PRN WHEEZING ALBUTEROL (ACCUNEB) 1.25 MG INH RTQ6H PRN PRN WHEEZING #90 ML predniSONE 40 MG PO DAILY predniSONE 40 MG PO DAILY #10 TABS UNTIL FINISHED (5 DAYS) guaiFENesin ER (MUCINEX) 1,200 MG PO Q12H guaiFENesin ER (MUCINEX) 1,200 MG PO Q12H #20 TABS BENZONATATE (TESSALON) 200 MG PO Q8H PRN PRN COUGH BENZONATATE (TESSALON) 200 MG PO Q8H PRN PRN COUGH #20 CAPS Patient Instructions 2019 Novel Coronavirus, Caring for Someone Who Has COVID-19Additional InstructionsEncourage oral fluids. Return to the ER for any increased difficulty breathing,oxygen saturations under 92%, increased dizziness, vomiting, or change or worsening of your condition. Follow-up with your regular doctor this week for recheck. at 0228RPT #:[id number] OF REPORTMichael E. DeB[facility] department bsuttq7705-25-88U98:32:00D.[id number]- 0843AVAvailable for patient wyiyLAPOHJXJRQODXP6150-72-02T45:28:13
--- NOTE | 2023-02-26 14:03 | RAD REPORT ---
EXAM DESCRIPTION: US - Extrem Venous W Compress Jarod - 02/26/2023 1:44 pm CLINICAL HISTORY: SWELLING Bilateral leg edema and swelling. COMPARISON: Extremity Venous Uni Ltd dated 11/04/2017 TECHNIQUE: Real-time sonographic interrogation of the left and right lower extremity deep venous sys tems was performed. FINDINGS: Normal compressibility, flow augmentation, phasic flow and spontaneous flow is identified in both the left and right lower extremity deep venous systems. IMPRESSION: No sonographic evidence of left or right lower extremity deep venous thrombosis.
[2023-02-26 14:35] LABS: Hematocrit 38.3 % (36.0-45.0); Lymphocytes % 34.3 % (15.3-44.8); MCV 88.3 fL (80-100); MPV 8.5 fL (7.6-11.3); Platelets 185 thou/uL (152-406); Protime INR 1.08; RBC Red Blood Cell Count 4.33 M/uL (3.86-4.86)
--- NOTE | 2023-02-26 14:35 | RAD REPORT ---
EXAM DESCRIPTION: RAD - Chest Single View - 02/26/2023 2:06 pm CLINICAL HISTORY: Chest pain;Dyspnea Chest pain. COMPARISON: Chest Single View dated 11/30/2022; Chest Single View dated 08/26/2021; Chest Pa And Lat (2 Views) dated 08/13/2019; Chest Single View dated 11/16/2018 FINDINGS: Portable technique limits examination quality. The lungs are grossly clear. The heart is moderately enlarged in size. No displaced fractures. IMPRESSION: Cardiomegaly.
[2023-02-26] MEDS ORDERED: NA CHLORIDE 0.9% 500 ML ONE (14:36)
[2023-02-26 14:46] LABS: Potassium 3.8 mEq/L (3.5-5.1); Troponin High Sensitivity 4.8 pg/mL (<58.9)
--- NOTE | 2023-02-26 15:26 | RAD REPORT ---
EXAM DESCRIPTION: CT - Chest For Pe Angio - 02/26/2023 3:06 pm CLINICAL HISTORY: Chest pain. Chest pain;Dyspnea COMPARISON: Chest For Pe Angio dated 11/16/2018 TECHNIQUE: CT angiogram of the pulmonary arteries was performed with MIP. All CT scans are performed using dose optimization technique as appropriate and may include automated exposure control or mA/KV adjustment according to patient size. FINDINGS: No evidence of pulmonary thromboembolism. No acute aortic finding demonstrated. Aberrant right subclavian artery, normal variant. The lungs are clear. No significant pericardial or pleural fluid. No concerning bony finding. IMPRESSION: No evidence of pulmonary thromboembolism. No acute lung findings.
--- NOTE | 2023-02-26 15:40 | ER ---
Nurse's Notes [facility] Name: Jenn Horan Age: 38 yrs Sex: Female : 1985 Arrival Date: 02/26/2023 Time: 12:45 Bed Treatment Private MD: Diagnosis: Dizziness and giddiness;Palpitations;Cardiomegaly Presentation: 02/26 12:48 Chief complaint: EMS states: Called to patient's home due to patient home due to cm10 patient having chest tightness and shortness of breath. Per EMS report, pt has chest tightness when standing and shortness of breath with standing. Pt's mom states that she has had episodes like this in the past. 12:51 Coronavirus screen: Vaccine status: Patient reports being unvaccinated. Client denies cm10 travel out of the [place] in the last 14 days. Ebola Screen: Patient denies travel to an Ebola-affected area in the 21 days before illness onset. No symptoms or risks identified at this time. Initial Sepsis Screen: Does the patient meet any 2 criteria? No. Patient's initial sepsis screen is negative. Does the patient have a suspected source of infection? No. Patient's initial sepsis screen is negative. Risk Assessment: Do you want to hurt yourself or someone else? Patient reports no desire to harm self or others. Onset of symptoms was February 26, 2023. 12:51 Method Of Arrival: EMS: [facility] 12:51 Acuity: SVETLANA 3 cm10 Triage Assessment: 12:56 General: Appears in no apparent distress. comfortable, Behavior is calm, cooperative. cm10 Pain: Complains of pain in chest. EENT: No deficits noted. No signs and/or symptoms were reported regarding the EENT system. Neuro: No deficits noted. Level of Consciousness is awake, alert, obeys commands, Oriented to person, place, time, situation. Cardiovascular: Patient's skin is warm and dry. Respiratory: No deficits noted. Reports shortness of breath on exertion Airway is patent Respiratory effort is even, unlabored, Respiratory pattern is regular, symmetrical. GI: No deficits noted. : No deficits noted. No signs and/or symptoms were reported regarding the genitourinary system. Derm: No deficits noted. No signs and/or symptoms reported regarding the dermatologic system. Skin is intact, Skin is pink, warm \T\ dry. Musculoskeletal: No deficits noted. Range of motion: intact in all extremities, Reports pain in chest. 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 - Social history:: Smoking status: Patient denies any tobacco usage or history of. - Family history:: not pertinent. - Hospitalizations: : No recent hospitalization is reported. Screenin:35 [facility] ED Fall Risk Assessment (Adult) History of falling in the last 3 months, cm10 including since admission No falls in past 3 months (0 pts) Confusion or Disorientation No (0 pts) Intoxicated or Sedated No (0 pts) Impaired Gait Yes (1 pt) Mobility Assist Device Used Yes (1 pt) Altered Elimination No (0 pt) Score/Fall Risk Level 0 - 2 = Low Risk Oriented to surroundings, Maintained a safe environment, Hourly rounding (assess needs \T\ fall precautionary measures) done. Abuse screen: Denies threats or abuse. Denies injuries from another. Nutritional screening: No deficits noted. Tuberculosis screening: No symptoms or risk factors identified. Assessment: 15:00 Pain: Pain does not radiate. Pain began 2-3 days ago. cm10 16:31 Reassessment: Patient appears in no apparent distress at this time. Patient and/or cm10 family updated on plan of care and expected duration. Pain level reassessed. Patient states feeling better. Patient states symptoms have improved. Vital Signs: 12:51 BP 108 / 74; Pulse 68; Resp 14; Temp 97.1(IR); Pulse Ox 100% on R/A; Weight 60.5 kg (M);cm10 15:35 BP 115 / 72; Pulse 61; Resp 18; Pulse Ox 99% on R/A; cm10 15:45 BP 117 / 69; Pulse 62; Resp 18; Pulse Ox 100% on R/A; cm10 16:05 BP 110 / 73; Pulse 56; Resp 16; Pulse Ox 100% on R/A; cm10 ED Course: 12:47 Patient arrived in ED. cm10 12:49 Yonny Dooley MD is Attending Physician. rn 12:56 Triage completed. cm10 12:57 Arm band placed on Patient placed in an exam room, on a stretcher, on tick sewer, cm10 on pulse oximetry. 13:24 Khushi Ramirez, RN is Primary Nurse. cm10 13:45 Extrem Venous W Compression Jarod US In Process Unspecified. EDMS 14:08 XRAY Chest (1 view) In Process Unspecified. EDMS 15:08 CT Chest For PE Angio In Process Unspecified. EDMS 15:35 Patient has correct armband on for positive identification. Bed in low position. Call cm10 light in reach. Side rails up X2. Adult w/ patient. Provided Education on: ER process and procedures.. Client placed on continuous cardiac and pulse oximetry monitoring. NIBP monitoring applied. 15:35 No provider procedures requiring assistance completed. Patient maintains SpO2 cm10 saturation greater than 95% on room air. 16:32 IV discontinued, intact, bleeding controlled, No redness/swelling at site. Pressure cm10 dressing applied. Administered Medications: 14:41 Drug: NS 0.9% IV 500 ml IV at bolus once Route: IV; Rate: bolus; Site: left antecubital;cm10 15:41 Follow up: Response: No adverse reaction; IV Status: Completed infusion; IV Intake: cm10 500ml Intake: 15:41 IV: 500ml; Total: 500ml. cm10 Outcome: 15:40 Discharge ordered by MD. rn 16:32 Patient left the ED. 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 Demonstrated understanding of instructions, follow-up care, Signatures: Dispatcher [employer] EDMS Yonny Dooley MD MD rn Leal, Jahala RN RN jl7 Khushi Ramirez, ELENA RN cm10 Corrections: (The following items were deleted from the chart) 12:56 12:48 Chief complaint: EMS states: Called to patient's home due to patient cm10 cm10 12:57 12:56 Respiratory: No deficits noted. Airway is patent Respiratory effort is even, cm10 unlabored, Respiratory pattern is regular, symmetrical, cm10
--- NOTE | 2023-02-26 15:41 | EDPHYS ---
Physician Documentation [facility] Name: Jenn Horan Age: 38 yrs Sex: Female : 1985 Arrival Date: 02/26/2023 Time: 12:45 Bed Treatment Private MD: ED Physician Yonny Dooley HPI: 02/26 13:02 This 38 yrs old Female presents to ER via EMS with complaints of Chest tightness, rn Shortness Of Breath. 13:03 The patient has shortness of breath at rest. Onset: The symptoms/episode began/occurred rn 3 day(s) ago. Duration: The symptoms are continuous. The patient's shortness of breath is aggravated by Standing up, is alleviated by rest. Associated signs and symptoms: Pertinent positives: chest pain, Pertinent negatives: fever, hemoptysis. Severity of symptoms: At their worst the symptoms were moderate in the emergency department the symptoms have improved. The patient has not experienced similar symptoms in the past. Patient and mother report chest tightness and shortness of breath that began 3 days ago. Patient states constant. Worse with change in position. Patient has POTS. Denies any fever or recent illness. No trauma. No fall. No syncope. No abdominal pain.. 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 - Social history:: Smoking status: Patient denies any tobacco usage or history of. - Family history:: not pertinent. - Hospitalizations: : No recent hospitalization is reported. ROS: 13:03 Constitutional: Negative for fever, chills, and weight loss, Cardiovascular: Negative rn for palpitations, and edema, Respiratory: Positive for shortness of breath Abdomen/GI: Negative for abdominal pain, nausea, vomiting, diarrhea, and constipation, Back: Negative for injury and pain, MS/Extremity: Negative for injury and deformity, Skin: Negative for injury, rash, and discoloration, Neuro: Negative for headache, numbness, tingling, and seizure, Exam: 13:05 Constitutional: This is a well developed, well nourished patient who is awake, alert, rn and in no acute distress. Head/Face: Normocephalic, atraumatic. ENT: No stridor Cardiovascular: Regular rate and rhythm. No rub or murmur. No pulse deficits. Respiratory: Lungs have equal breath sounds bilaterally, clear to auscultation. No rales, rhonchi or wheezes noted. No increased work of breathing, no retractions or nasal flaring. Abdomen/GI: Soft, non-tender Skin: Warm, dry MS/ Extremity: Pulses equal, no cyanosis. Neurovascular intact. Full, normal range of motion. Right lower extremity with greater circumference compared to left lower extremity Neuro: Awake and alert, GCS 15 Vital Signs: 12:51 BP 108 / 74; Pulse 68; Resp 14; Temp 97.1(IR); Pulse Ox 100% on R/A; Weight 60.5 kg (M);cm10 15:35 BP 115 / 72; Pulse 61; Resp 18; Pulse Ox 99% on R/A; cm10 15:45 BP 117 / 69; Pulse 62; Resp 18; Pulse Ox 100% on R/A; cm10 16:05 BP 110 / 73; Pulse 56; Resp 16; Pulse Ox 100% on R/A; cm10 MDM: 12:49 Patient medically screened. rn 15:37 Differential diagnosis: Anemia Anxiety Reaction Myocardial Infarction pneumonia, rn Pneumothorax pulmonary edema, Pulmonary Embolism. Antibiotic administration: Not indicated. Data reviewed: vital signs, nurses notes, lab test result(s), EKG, radiologic studies, CT scan, ultrasound, and as a result, I will discharge patient. Independent interpretation of the following test(s) in the Emergency Department EKG: See my EKG interpretation above X-Ray: My interpretation is Chest x-ray images negative for pneumothorax or pneumonia per my interpretation. Care significantly affected by the following chronic conditions: POTS, cerebral palsy. Counseling: I had a detailed discussion with the patient and/or guardian regarding the historical points, exam findings, and any diagnostic results supporting the discharge/admit diagnosis, lab results, radiology results, the need for outpatient follow up, to return to the emergency department if symptoms worsen or persist or if there are any questions or concerns that arise at home. Response to treatment: the patient's symptoms have mildly improved after treatment, and as a result, I will discharge patient. Special discussion: I discussed with the patient/guardian in detail that at this point there is no indication for admission to the hospital. It is understood, however, that if the symptoms persist or worsen the patient needs to return immediately for re-evaluation. Based on the history and exam findings, there is no indication for further emergent testing or inpatient evaluation. I discussed with the patient/guardian the need to see the primary care provider for further evaluation of the symptoms. ED course: No acute findings on workup today, including CT PE protocol. Troponin negative. Ultrasound lower extremities negative for DVT. No evidence of arrhythmia or tachycardia. Intermittent symptoms of palpitations and lightheadedness consistent with her POTS. No evidence of anemia. No kidney failure. No electrolyte problems. Recommend cardiology follow-up for cardiomegaly finding, mother states has been told has cardiomegaly before. Talk to them about getting outpatient echo for further eval. I have personally reviewed all of the results, including but not limited to blood tests and imaging deemed necessary to safely discharge this patient at this time. All results given to and printed out for patient. I personally went over all the results with the patient and answered all questions. Patient will follow-up with PCP and or specialist as discussed. Return precautions given and understood.. 02/26 12:59 Order name: Basic Metabolic Panel; Complete Time: 14:50 rn 02/26 12:59 Order name: CBC with Diff rn 02/26 12:59 Order name: NT PRO-BNP; Complete Time: 14:50 rn 02/26 12:59 Order name: PT-INR; Complete Time: 14:50 rn 02/26 12:59 Order name: Troponin HS; Complete Time: 14:50 rn 02/26 12:59 Order name: XRAY Chest (1 view); Complete Time: 14:50 rn 02/26 12:59 Order name: CT Chest For PE Angio; Complete Time: 15:31 rn 02/26 13:05 Order name: Extrem Venous W Compression Jarod US; Complete Time: 14:13 rn 02/26 12:59 Order name: EKG; Complete Time: 12:59 rn 02/26 12:59 Order name: Cardiac monitoring; Complete Time: 13:30 rn 02/26 12:59 Order name: EKG - Nurse/Tech; Complete Time: 14:19 rn 02/26 12:59 Order name: IV Saline Lock; Complete Time: 13:30 rn 02/26 12:59 Order name: Labs collected and sent; Complete Time: 14:19 rn 02/26 12:59 Order name: O2 Per Protocol; Complete Time: 13:30 rn 02/26 12:59 Order name: O2 Sat Monitoring; Complete Time: 13:30 rn Administered Medications: 14:41 Drug: NS 0.9% IV 500 ml IV at bolus once Route: IV; Rate: bolus; Site: left antecubital;cm10 15:41 Follow up: Response: No adverse reaction; IV Status: Completed infusion; IV Intake: cm10 500ml Disposition Summary: 02/26/23 15:40 Discharge Ordered Notes: Location: Home rn Problem: new rn Symptoms: have improved rn Condition: Stable rn Diagnosis - Dizziness and giddiness rn - Palpitations rn - Cardiomegaly rn Followup: rn - With: Private Physician - When: As needed - Reason: Recheck today's complaints, Re-evaluation by your physician Discharge Instructions: - Discharge Summary Sheet rn - Dizziness rn - Palpitations rn Forms: - Medication Reconciliation Form rn - Thank You Letter rn - Antibiotic human resources intern - Prescription Opioid Use rn - Patient Portal Instructions rn - Leadership Thank You Letter rn Signatures: Dispatcher [employer] EDYonny Elaine MD MD rn Martinez, Clarissa, RN RN cm10 Corrections: (The following items were deleted from the chart) 13:05 13:03 Constitutional: Negative for fever, chills, and weight loss, Cardiovascular: rn Negative for palpitations, and edema, Respiratory: Positive for shortness of breath Abdomen/GI: Negative for abdominal pain, nausea, vomiting, diarrhea, and constipation, Back: Negative for injury and pain, MS/Extremity: Negative for injury and deformity, Skin: Negative for injury, rash, and discoloration, Neuro: Negative for headache, weakness, numbness, tingling, and seizure, rn
[2023-02-26 16:41] LABS: Platelet Estimate ADEQ; White Blood Cell Scan OK (OK)
[2023-02-26 16:42] LABS: Blood Morphology Comment NOT SEEN (NOT SEEN)
[2023-02-26 18:06] VITALS: TEMP 97.1
[2023-02-26 18:08] VITALS: O2SAT 100
[2023-02-26 18:10] VITALS: BP 110/73
--- NOTE | 2023-02-27 13:28 | EKG ---
Test Date: 2023-02-26 Test Time: 14:35:34 Machine Sewer: Jorge, MEASUREMENT RESULTS: Intervals: Rate: 64 GA: 216 QRSD: 110 QT: 422 QTc: 435 [place]: P: 22 GA: 216 QRS: -90 T: 64 INTERPRETIVE STATEMENTS: Sinus rhythm with 1st degree AV block Possible Left atrial enlargement Left axis deviation Right bundle branch block Possible Anterior infarct, age undetermined Abnormal ECG Compared to ECG 11/30/2022 13:19:46 Right bundle-branch block now present Myocardial infarct finding now present Sinus bradycardia no longer present Intraventricular conduction delay no longer present Electronically Signed On 02-27-23 13:26:41 FLOTATION TENDER by Toni Garrett
== END 2023-02-26 16:32 | disposition home or self-care (01) ==
LOC: ER 12:45
DX: R42 Dizziness and giddiness (principal); R00.2 Palpitations; I51.7 Cardiomegaly; G90.A Postural orthostatic tachycardia syndrome [POTS]; Z88.0 Allergy status to penicillin; Z88.5 Allergy status to narcotic agent; Z88.6 Allergy status to analgesic agent; Z88.8 Allergy status to other drugs, medicaments and biological substances
CPT/HCPCS: 93005; 85025; 80048; 36415; 85610; 84484; 83880; 71275; 71045; 93970; 96360; 99285; Q9967; J7040

== ENCOUNTER 2024-07-21 00:17 | Emergency (ER) | payer OTHER ==
--- OUTSIDE RECORDS SUMMARY | 2024-07-21 00:28 | XMS REPORT | Continuity of Care Document ---
Author Name Unknown Address [address] [facility] [address] [place] [address] [facility] [address] 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 Name Role Phone JAI SAMUEL Primary Care Physician Unavailab michael Alcaraz, PCP Attending Clinician Unavailable MK NUNEZ Attending Clinician Unava ilable JAI SAMUEL Attending Clinician Unavailable MARK CLEMONS Attending Clinician Unavailab NATHALIA Guerrero Attending Clinician Unavailable BLADIMIR CORBETT Attending Clinician Unavailable JOSELO VARGAS Attending Clinician Unavailable BRYON CHERY Attending Clinician Unavailable DAVID CAVAZOS Attending Clinician Unavailable JAYY KAY Attending Clinician UnavailAimee Escalante RN Attending Clinician Unavailelvia zaidi Draw, [facility] Attending Clinician UnavailJayy Gandhi MD Attending Clinician GURPREET VALENCIA Attending Clinician Unavail able GURPREET VALENCIA Attending Clinician Unavail able Erik MARX, Gurpreet Avalos Attending Clinician [phone] UKSTEPHEN MARESOZI Attending Clinician Unavailable Fabio MARX, Tj Attending Clinician [phone] TJ MCCARTHY Attending Clinician Unavailable TJ MCCARTHY Attending Clinician Unavailable MIRTA LEDESMA Attending Clinician Unavailable Rashmi Adams RN Attending Clinician Unavaila kiya Cheek RN, Cassie Rebollar Attending Clinician Unavaila AMINA Cevallos Attending Clinician Unavailable Julian MARX, Amina Attending Clinician [phone] Unknown, Attending Attending Clinician Unavailab GABRIEL Marie Attending Clinician Unava Lawrence Stark Attending Clinician [phone] LAWRENCE BARFIELD Attending Clinician Unavailable Timoteo Koch PA-C Attending Clinician [phone] TIMOTEO KOCH Attending Clinician Unavailable Doctor Unassigned, [place] Attending Clinician U anish Tsang MD, Aime Attending Clinician + [phone] Zenaida Mendiola MD Attending Clinician [phone] Marlene Daigle MD Attending Clinician + [phone] JAGDEEP STUBBS Attending Clinician Unavailable Margret Mc MD, Argenis Attending Clinician [phone] Ingrid Lares RN Attending Clinician Unavail able SEB LEBLANC Attending Clinician Unavailable Pancho Yu RN Attending Clinician Unavailable Kendra Gibbons RN Attending Clinician Unavaila DAVID Gotti Attending Clinician Unavailable Ericka Coley RN Attending Clinician Unavailable Clarissa Montesinos Attending Clinician Unavailable Jones Pool RN Attending Clinician Unavailelvia Stevens MD, Amy Attending Clinician + Rosio Segundo MD Attending Clinician + Bernie Yepez MA Attending Clinician Unacarolann Sidhu MD, Fozia Attending Clinician + Neva Laguna RN Attending Clinician Unavailab MARK Saavedra NP Attending Clinician Unava ilJOSELO Manrique M.D. Attending Clinician FOZIA Canales M.D. Attending Clinician SLICK Espinal M.D. Attending Clinician CODEY Foy M.D. Attending Clinician CODEY Jackson Attending Clinician ZAY Swan M.D. Attending Clinician ROXANA Melvin M.D. Attending Clinician ANABEL Kemp M.D. Attending Clinician FRED Muir M.D. Attending Clinician ASHLEY Quintero M.D. Attending Clinician MARINO Castaneda M.D. Attending Clinician Ibis quigley MED PROVIDER, [facility] Attending Clinician NATHALIA Wilson M.D. Attending Clinician Unavail katarzyna HOLTER, NON-INVASIVE Attending Clinician Unavail JORDI Shepherd M.D. Attending Clinician KARINE Villa M.D. Attending Clinician Unavailable HIRAL ROBERSON P.A. Attending Clinician Unavail BLANCA Wong M.D. Attending Clinician RAGHAVENDRA Hernández M.D. Attending Clinician ELIZABETH Walters M.D. Attending Clinician iTtus Thompson M.D. Attending Clinician Un GABRIELLA Hudson M.D. Attending Clinician NASEEM Spears M.D. Attending Clinician JAYY Hi Admitting Clinician GURPREET Loco Admitting Clinician DAVID Roy Admitting Clinician Unavailable Physician, No Primary or Family Admitting Clinic isaias CODEY Juárez Admitting Clinician Ayan cerda Payers Payer Name Policy Type Policy Number Effective Date Expirati on Date Source [facility] [id number] 2011 00:00:00 2017 00:00:00 [facility] [id number] 2008 00:00:00 [facility] [id number] 2023 00:00:00 [facility] STARPLUS OON EXCEPT [facility] [id number] 2023 00:00:00 [employer] STAR PLUS [id number] 2022 00:00:00 [employer] Star Plus [id number] 2017 00:00:[address] [facility] Problems Condition Name Condition Details Condition Category Status Onset Date Resolution Date Last Treatment Date Treating Clinician Comments Source Right shoulder pain Right shoulder pain Disease Active - 00:00: 00 [facility] Right shoulder pain Right shoulder pain Disease Active 04-11 00:00: 00 [facility] Acute pain of right shoulder Acute pain of right shoulder Disease Active 2021-03 00:00: 00 [facility] Adhesive capsulitis of right shoulder Adhesive capsulitis of right shoulder Disease Active 2021-03 00:00: 00 Last Assessmen t & Plan: Formattin g of this note might be different from the original. Reassured today. Recommend a trial of physical therapy to continue. Updated PT note provided today. May follow-up as needed. [facility] Acute pain of right shoulder Acute pain of right shoulder Disease Active 2021-03 0- 00:00: 00 [facility] Erythromel algia Erythromel algia Disease Active 3- 00:00: 00 [facility] Cerebral palsy Cerebral palsy Disease Active 3- 00:00: 00 [facility] Intellectu al disability Intellectu al disability Disease Active 3- 00:00: 00 [facility] Urinary incontinen ce Urinary incontinen ce Disease Active 3- 00:00: 00 [facility] Asthma Asthma Disease Active 8-23 00:00: 00 [facility] Bundle branch block Bundle branch block Disease Active 6-24 00:00: 00 [facility] Atrial fibrillati on Atrial fibrillati on Disease Active 6-24 00:00: 00 [facility] Schizophre elle, unspecifie d Schizophre elle, unspecifie d Disease Active 6-22 00:00: 00 [facility] Special Services Analysis Of Computeriz ed Data Special Services Analysis Of Computeriz ed Data Problem Active [facility] History of Nonpuerper al Galactorrh ea Of The Left Breast History of Nonpuerper al Galactorrh ea Of The Left Breast Problem Resolve d [facility] Ovarian Cyst Ovarian Cyst Problem Active [facility] Irregular Length Of Menstrual Periods Irregular Length Of Menstrual Periods Problem Active [facility] History of urinary frequency History of urinary frequency Problem Resolve d [facility] History of Abdominal pain, RLQ (right lower quadrant) History of Abdominal pain, RLQ (right lower quadrant) Problem Resolve d [facility] History of Abdominal tenderness History of Abdominal tenderness Problem Resolve d [facility] History of Abnormal bleeding in menstrual cycle History of Abnormal bleeding in menstrual cycle Problem Resolve d [facility] History of pharyngiti s History of pharyngiti s Problem Resolve d [facility] History of urinary tract infection History of urinary tract infection Problem Resolve d [facility] History of Acute recurrent sinusitis History of Acute recurrent sinusitis Problem Resolve d [facility] History of vaginal bleeding History of vaginal bleeding Problem Resolve d [facility] History of Rectal pain History of Rectal pain Problem Resolve d [facility] History of Asthma with acute exacerbati on History of Asthma with acute exacerbati on Problem Resolve d [facility] History of Atypical face pain History of Atypical face pain Problem Resolve d [facility] History of bacterial pneumonia History of bacterial pneumonia Problem Resolve d [facility] History of Bartholin gland cyst History of Bartholin gland cyst Problem Resolve d [facility] History of varicella History of varicella Problem Resolve d [facility] History of Chest pressure History of Chest pressure Problem Resolve d [facility] History of Congenital lobar emphysema History of Congenital lobar emphysema Problem Resolve d [facility] History of Cough History of Cough Problem Resolve d [facility] History of Extremity pain History of Extremity pain Problem Resolve d [facility] History of Foot pain History of Foot pain Problem Resolve d [facility] History of pyelonephr itis History of pyelonephr itis Problem Resolve d [facility] History of Raynaud's syndrome History of Raynaud's syndrome Problem Resolve d [facility] History of Joint pain, hip History of Joint pain, hip Problem Resolve d [facility] History of Left ear pain History of Left ear pain Problem Resolve d [facility] History of Limb swelling History of Limb swelling Problem Resolve d [facility] History of Mental status change History of Mental status change Problem Resolve d [facility] History of Noninfecti ous diarrhea History of Noninfecti ous diarrhea Problem Resolve d [facility] History of Oligomenor sunshine History of Oligomenor sunshine Problem Resolve d [facility] History of Onychomyco sis of toenail History of Onychomyco sis of toenail Problem Resolve d [facility] History of Pain, joint, ankle and foot History of Pain, joint, ankle and foot Problem Resolve d [facility] History of Pain, joint, shoulder History of Pain, joint, shoulder Problem Resolve d [facility] History of Suprapubic pain History of Suprapubic pain Problem Resolve d [facility] History of Pre-operat mari general physical examinatio n History of Pre-operat mari general physical examinatio n Problem Resolve d [facility] Recurrent UTI Recurrent UTI Problem Active [facility] History of Sore throat History of Sore throat Problem Resolve d [facility] History of Subacute and chronic vaginitis History of Subacute and chronic vaginitis Problem Resolve d [facility] History of Urinary retention History of Urinary retention Problem Resolve d [facility] History of UTI symptoms History of UTI symptoms Problem Resolve d [facility] History of Viral intestinal infection History of Viral intestinal infection Problem Resolve d [facility] History of Yeast infection History of Yeast infection Problem Resolve d [facility] Normal routine physical examinatio n Normal routine physical examinatio n Problem Active [facility] Esophageal reflux Esophageal reflux Problem Active [facility] Other signs and symptoms in breast Other signs and symptoms in breast Problem Active [facility] Hypertroph y of breast Hypertroph y of breast Problem Active [facility] Asthma Asthma Problem Active [facility] Auditory hallucinat ions Auditory hallucinat ions Problem Active [facility] Arterial insufficie ncy Arterial insufficie ncy Problem Active [facility] Scoliosis Scoliosis Problem Active [facility] Raynauds phenomenon Raynauds phenomenon Problem Active [facility] Cerebral palsy Cerebral palsy Problem Active [facility] Allergic rhinitis Allergic rhinitis Problem Active [facility] Flu vaccine need Flu vaccine need Problem Active [facility] Anxiety Anxiety Problem Active [facility] Erythromel algia Erythromel algia Problem Active [facility] Essential (primary) hypertensi on Essential (primary) hypertensi on Problem Active [facility] Heart block Heart block Problem Active [facility] Hyperlipid emia Hyperlipid emia Problem Active [facility] Psychosis Psychosis Problem Active [facility] Depression Depression Problem [facility] Right ankle swelling Right ankle swelling Problem Active [facility] 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 [facility] Tachycardi a Tachycardi a Problem Active [facility] Pruritus of vagina Pruritus of vagina Problem Active [facility] Irregular menstruati on Irregular menstruati on Problem Active [facility] Schizoaffe ctive disorder, depressive type Schizoaffe ctive disorder, depressive type Problem Active [facility] Paroxysmal supraventr icular tachycardi a Paroxysmal supraventr icular tachycardi a Problem Active [facility] Palpitatio ns Palpitatio ns Problem Active [facility] Heavy menses Heavy menses Problem Active [facility] Iron deficiency anemia due to chronic blood loss Iron deficiency anemia due to chronic blood loss Problem Active [facility] Postoperat mari visit Postoperat mari visit Problem Active [facility] History of Acute right-side d low back pain with left-sided sciatica History of Acute right-side d low back pain with left-sided sciatica Problem Resolve d [facility] Low back pain Low back pain Problem Active [facility] Back pain Back pain Problem Active [facility] Acute otitis media, unspecifie d otitis media type Acute otitis media, unspecifie d otitis media type Problem Active [facility] Infection due to severe acute respirator y syndrome coronaviru s 2 (SARS-CoV- 2) Problem Active [facility] Allergies, Adverse Reactions, Alerts Allergy Name Allergy Type Status Severity Reaction(s) Onset Date Inactive Date Treating Clinician Comments Source NIRMATRE LVIR-RIT ONAVIR DRUG Active Unknown-Cmnt 10-22 00:00: 00 [facility] CLARITHR OMYCIN DRUG INGREDI Active Unknown-Cmnt 10-22 00:00: 00 [facility] CEFACLOR DRUG INGREDI Active Rash 10-22 00:00: 00 [facility] Clarithr omycin Propensi ty to adverse reaction s Active Unknown - See comments 10-22 00:00: 00 Z pack ok per MOCBad headache, went to to ED [facility] Cefaclor Propensi ty to adverse reaction s Active Unknown - See comments 0 7- 00:00: 00 Rash all over [facility] Nirmatre lvir-Rit onavir Propensi ty to adverse reaction s Active Unknown - See comments 0 7-30 00:00: 00 Did not mix well with colenor [facility] NSAIDS (NON-RAFI ROIDAL ANTI-INF LAMMATOR Y DRUG) Drug Class Active Swelling 3-0 8-19 00:00: 00 [facility] PENICILL IN DRUG INGREDI Active Hives 2022-0 8-19 00:00: 00 [facility] Nsaids (Non-Rafi roidal Anti-Inf lammator y Drug) Propensi ty to adverse reaction s Active Swelling 2022-0 8-19 00:00: 00 [facility] Penicill in Propensi ty to adverse reaction s Active Hives 2022-0 8-19 00:00: 00 [facility] Nsaids (Non-Rafi roidal Anti-Inf lammator y Drug) Propensi ty to adverse reaction s Active Swelling 3-0 8-19 00:00: 00 [facility] NSAIDS (Non-Rafi roidal Anti-Inf lamma Allergy to substanc e Active 6- 00:00: [address] [facility] Penicill in Allergy to substanc e Active 0 6-04 00:00: [address] [facility] Morphine Allergy to substanc e Active 0 6-04 00:00: [address] [facility] Cefaclor Allergy to substanc e Active 0 6-04 00:00: [address] [facility] Clarithr omycin Allergy to substanc e Active 0 6-04 00:00: [address] [facility] Meperidi ne Allergy to substanc e Active 0 6-04 00:00: [address] [facility] Hydromor phone Allergy to substanc e Active 0 6-04 00:00: [address] [facility] NSAIDS (Non-Rafi roidal Anti-Inf lamma DA Active MO RASH 0 08-24 00:00: 00 [facility] Penicill ins DA Active MO RASH 0 08-24 00:00: 00 [facility] morphine DA Active MO ITCHY 08-24 00:00: 00 [facility] hydromor phone DA Active MO RASH 0 08-24 00:00: 00 [facility] Penicill ins Propensi ty to adverse reaction s Active 0 8 00:00: 00 [facility] Cefaclor Allergy to substanc e Active 0 08-20 00:00: 00 [facility] Hydromor phone Allergy to substanc e Active 0 08-20 00:00: 00 [facility] Meperidi ne Allergy to substanc e Active 0 08-20 00:00: 00 [facility] Metoclop ramide Allergy to substanc e Active 0 08-20 00:00: 00 [facility] Morphine Allergy to substanc e Active 0 08-20 00:00: 00 [facility] Nsaids Allergy to substanc e Active 0 28 00:00: 00 [facility] Biaxin TABS Allergy to drug (finding ) Active [facility] Ceclor CAPS Allergy to drug (finding ) Active [facility] Cipro TABS Allergy to drug (finding ) Inactiv e [facility] Demerol TABS Allergy to drug (finding ) Active [facility] Dilaudid TABS Allergy to drug (finding ) Active [facility] Levaquin TABS Allergy to drug (finding ) Active [facility] Morphine Derivati ves Allergy to drug (finding ) Active [facility] NSAIDs Allergy to drug (finding ) Active [facility] Penicill ins Allergy to drug (finding ) Active [facility] Diflucan TABS Allergy to drug (finding ) Active [facility] Reglan Allergy to drug (finding ) Active [facility] NSAIDS (Non-Rafi roidal Anti-Inf lamma DA Active [facility] Penicill ins DA Active [facility] morphine DA Active [facility] cefaclor DA Active [facility] clarithr omycin DA Active [facility] meperidi ne DA Active [facility] hydromor phone DA Active [facility] NO KNOWN ALLERGIE S Drug Class Active [facility] Family History Family Member Diagnosis Comments Start Date Stop Date Sourc e Unknown Family Member Family history of Hypertension Family History [facility] Grandmother Family history of rheumatoid arthritis [facility] Mother Family history of hypertension [facility] Social History Social Habit Start Date Stop Date Quantity Comments Source ASSERTION Not [facility] Gender identity [facility] History SDOH Alcohol Comment [facility] Sexual orientation [facility] History of Social function 2024-06-06 00:00:00 2024-06-06 00:00:00 [facility] Tobacco use and exposure 2024-01-21 00:00:00 2024-01-21 00:00:00 Smokeless tobacco non-user [facility] Alcohol intake 2022-11-03 00:00:00 2022-11-03 00:00:00 Lifetime non-drinker (finding) [facility] Alcoholic beverage intake 2022-11-03 00:00:00 2022-11-03 00:00:00 Lifetime non-drinker (finding) [facility] Exposure to SARS-CoV-2 (event) 2022-08-25 00:00:00 2022-09-04 10:57:00 Not sure [facility] History SDOH Alcohol Frequency 2021-11-04 00:00:00 2021-11-04 00:00:00 1 [facility] History SDOH Alcohol Std Drinks 2021-11-04 00:00:00 2021-11-04 00:00:00 0 [facility] History SDOH Alcohol Binge 2021-11-04 00:00:00 2021-11-04 00:00:00 1 [facility] History SDOH Food Worry 2021-11-04 00:00:00 2021-11-04 00:00:00 1 [facility] History SDOH Food Scarcity 2021-11-04 00:00:00 2021-11-04 00:00:00 1 [facility] Cigarette pack-years 2021-01-20 00:00:00 2021-01-20 00:00:00 [facility] Sex assigned at 1985 00:00:00 1985 00:00:00 [facility] Smoking Status Start Date Stop Date Source Tobacco smoking consumption unknown [facility] Never smoked tobacco [facility] Medications Ordered Medication Name Filled Medication Name Start Date Stop Date Current Medication? Ordering Clinician Indication Dosage Frequency Signature (SIG) Comments Components Source metoprolol succinate XL 25 mg 24 hr tablet 07-18 00:00: 00 Yes [id number] 12.5mg Take 0.5 tablets by mouth in the morning. [facility] perflutren protein-A microsphr (OPTISON) injection 3 mL 07-09 20:30: 00 07-09 19:57 :00 No [id number] 3mL 3 mL, IV Push, ONCE, 1 dose, On Sun07/09/24 at 1530, Routine [facility] ivabradine (CORLANOR) 7.5 mg tablet 06-02 00:00: 00 07-18 00:00 :00 No [id number] 7.5mg Take 1 tablet by mouth in the morning and 1 tablet in the evening. [facility] albuterol 2.5 mg /3 mL (0.083 %) nebulizer solution 10-22 00:00: 00 Yes [id number] 2.5mg Inhale 3 mL every 4 (four) hours as needed for Wheezing, Shortness of Breath or Bronchospa sm. [facility] bromphenira mine-pseudo ephedrine-D M (BROMFED DM) 2-30-10 mg/5 mL syrup 10-22 00:00: 00 Yes [id number] 10mL Take 10 mL by mouth 4 (four) times daily as needed for Cough, Cold symptoms or Congestion /Allergies . [facility] budesonide 1 mg/2 mL nebulizer solution 10-22 00:00: 00 11-02 04:59 :00 No [id number] 1mg Use 2 mL as directed in the morning and 2 mL in the evening. Do all this for 10 days. [facility] clopidogreL 75 mg tablet 10-17 00:00: 00 Yes [facility] ARIPiprazol e 5 mg tablet 10-14 00:00: 00 Yes 5mg Take 1 tablet by mouth every morning. [facility] benztropine 0.5 mg tablet 10-14 00:00: 00 Yes TAKE 1 TABLET BY MOUTH EVERY NIGHT. [facility] CORLANOR 7.5 mg tablet 10-14 00:00: 00 Yes TAKE 1 TABLET BY MOUTH 2 (TWO) TIMES A DAY, IN THE MORNING AND AT BEDTIME. [facility] FLUoxetine 20 mg capsule 10-06 00:00: 00 Yes TAKE 1 CAPSULE BY MOUTH 1 TIME EACH DAY. [facility] levoFLOXaci n 750 mg tablet 09-23 00:00: 00 09-27 04:59 :00 No [id number] 750mg Take 1 tablet by mouth every 24 (twenty-fo ur) hours for 3 days. [facility] Nitrofurant oin&Nit. Macrocryst 100 mg capsule 09-23 00:00: 00 09-23 00:00 :00 No [id number] 100mg Take 1 capsule by mouth in the morning and 1 capsule in the evening. Do all this for 5 days. [facility] LORazepam 0.5 mg tablet 08-05 00:00: 00 Yes PLEASE SEE ATTACHED FOR DETAILED DIRECTIONS [facility] FLUoxetine (PROzac) 20 MG capsule 08-05 00:00: 00 11-04 04:59 :00 No [id number] 20mg QD Take 1 capsule (20 mg total) by mouth 1 (one) time each day. [facility] ARIPiprazol e (Abilify) 20 MG tablet 08-05 00:00: 00 11-04 04:59 :00 No [id number] 20mg Take 1 tablet (20 mg total) by mouth every night. [facility] ARIPiprazol e (Abilify) 5 MG tablet 08-05 00:00: 00 11-04 04:59 :00 No [id number] 5mg Take 1 tablet (5 mg total) by mouth every morning. [facility] benztropine (Cogentin) 0.5 MG tablet 5-13 00:00: 00 11-04 04:59 :00 No [id number] .5mg Take 1 tablet (0.5 mg total) by mouth every night. [facility] clopidogrel (Plavix) 75 MG tablet 4-11 00:00: 00 Yes [id number] 75mg QD TAKE 1 TABLET (75 MG TOTAL) BY MOUTH 1 (ONE) TIME EACH DAY. [facility] diphenhydrA MINE (BENADryl) 25 MG tablet 4-10 10:04: 33 Yes QD Take by mouth at night if needed for itching. [facility] Corlanor 7.5 MG tablet 3-22 00:00: 00 Yes [id number] 1{tbl} Q.5D TAKE 1 TABLET BY MOUTH 2 (TWO) TIMES A DAY, IN THE MORNING AND AT BEDTIME. [facility] ARIPiprazol e (Abilify) 20 MG tablet 2-12 00:00: 00 08-05 04:59 :00 No [id number] 20mg Take 1 tablet (20 mg total) by mouth every night. [facility] ARIPiprazol e (Abilify) 5 MG tablet 2-12 00:00: 00 08-05 04:59 :00 No [id number] 5mg Take 1 tablet (5 mg total) by mouth every morning. [facility] FLUoxetine (PROzac) 20 MG capsule 2-12 00:00: 00 08-05 04:59 :00 No [id number] 20mg QD Take 1 capsule (20 mg total) by mouth 1 (one) time each day. [facility] LORazepam (Ativan) 0.5 MG tablet 2022-03 1-08 00:00: 00 Yes [id number] .25mg Take 0.5 tablets (0.25 mg total) by mouth 1 (one) time each day if needed (severe anxiety). May repeat once in 30 minutes if ineffectiv e. [facility] albuterol (PROVENTIL) 2.5 mg /3 mL (0.083 %) nebulizer solution 2.5 mg 11-26 17:15: 00 11-26 16:46 :00 No [id number] 2.5mg [facility] albuterol 90 mcg/actuati on inhaler 11-26 00:00: 00 Yes [id number] 2{puff} Inhale 2 Puffs every 6 (six) hours as needed for Wheezing. [facility] azithromyci n 500 mg tablet 11-26 00:00: 00 12-02 04:59 :00 No [id number] 500mg Take 1 tablet by mouth in the morning for 5 days. [facility] albuterol (2.5 MG/3ML) 0.083% nebulizer solution 11-23 00:00: 00 Yes [id number] USE 1 VIAL VIA NEBULIZER EVERY 6 HOURS NEEDED [facility] ciprofloxac in-dexameth asone 0.3-0.1 % otic drops 11-11 00:00: 00 10-22 00:00 :00 No [id number] 4[drp] Place 4 Drops in right ear in the morning and 4 Drops in the evening. [facility] LORazepam (Ativan) 0.5 MG tablet 08-14 00:00: 00 11-06 00:00 :00 No [id number] .25mg Take 0.5 tablets (0.25 mg total) by mouth 1 (one) time each day if needed (severe anxiety). May repeat once in 30 minutes if ineffectiv e. [facility] FLUoxetine (PROzac) 20 MG capsule 08-14 00:00: 00 11-06 00:00 :00 No [id number] 20mg QD Take 1 capsule (20 mg total) by mouth 1 (one) time each day. [facility] ARIPiprazol e (Abilify) 20 MG tablet 08-14 00:00: 00 11-06 00:00 :00 No [id number] 20mg Take 1 tablet (20 mg total) by mouth every night. [facility] ARIPiprazol e (Abilify) 5 MG tablet 08-14 00:00: 00 11-06 00:00 :00 No [id number] 5mg Take 1 tablet (5 mg total) by mouth 1 (one) time each day in the morning. [facility] sulfamethox azole-trime thoprim (Bactrim DS) 800-160 MG tablet 5- 00:00: 00 08-22 04:59 :00 No [id number] 1{tbl} Q.5D Take 1 tablet by mouth in the morning and 1 tablet in the evening. Do all this for 10 days. [facility] ARIPiprazol e (Abilify) 20 MG tablet 07-17 00:00: 00 08-14 00:00 :00 No [id number] 20mg Take 1 tablet (20 mg total) by mouth every night. [facility] clopidogrel (Plavix) 75 MG tablet 07-04 00:00: 00 07-04 00:00 :00 No [id number] 75mg QD Take 1 tablet (75 mg total) by mouth 1 (one) time each day. TK 1 T PO D [facility] clopidogrel (Plavix) 75 MG tablet 06-23 00:00: 00 07-04 00:00 :00 No [id number] 75mg QD Take 1 tablet (75 mg total) by mouth 1 (one) time each day. TK 1 T PO D [facility] Ivabradine HCl (Corlanor) 7.5 MG tablet 04-26 00:00: 00 Yes [id number] 1{tbl} Q.5D Take 1 tablet by mouth in the morning and 1 tablet before bedtime. [facility] montelukast (Singulair) 10 MG tablet 2021-03 00:00: 00 11-03 00:00 :00 No [id number] 10mg Take 1 tablet (10 mg total) by mouth every night. [facility] ketoconazol e (NIZOral) 2 % cream 2021-03 2 00:00: 00 03-29 05:59 :00 No [id number] Q.5D Apply topically 2 (two) times a day for 7 days. [facility] LORazepam (Ativan) 0.5 MG tablet 2021-03 1- 00:00: 00 08-14 00:00 :00 No [id number] .25mg Take 0.5 tablets (0.25 mg total) by mouth 1 (one) time each day if needed (severe anxiety). May repeat once in 30 minutes if ineffectiv e. [facility] FLUoxetine (PROzac) 20 MG capsule 2021-03 00:00: 00 08-14 00:00 :00 No [id number] 20mg QD Take 1 capsule (20 mg total) by mouth 1 (one) time each day. [facility] ARIPiprazol e (Abilify) 20 MG tablet 2021-03 00:00: 00 05-23 05:59 :00 No [id number] 20mg Take 1 tablet (20 mg total) by mouth every night. [facility] ARIPiprazol e (Abilify) 5 MG tablet 2021-03 00:00: 00 05-23 05:59 :00 No [id number] 5mg Take 1 tablet (5 mg total) by mouth 1 (one) time each day in the morning. [facility] furosemide (Lasix) 20 MG tablet 2021-03 00:00: 00 Yes [id number] 20mg QD Take 1 tablet (20 mg total) by mouth 1 (one) time each day. [facility] ofloxacin (Floxin) 0.3 % otic solution 12-23 00:00: 00 12-31 04:59 :00 No [id number] 4[drp] Q.5D Administer 4 drops into each ear in the morning and 4 drops in the evening. Do all this for 7 days. [facility] Ivabradine HCl (Corlanor) 5 MG tablet 12-22 00:00: 00 Yes [id number] Take 5 mg by mouth 2 (two) times a day AND 2.5 mg 2 (two) times a day. [facility] diphenhydrA MINE (BENADryl) 25 MG tablet 12-20 13:06: 31 Yes QD Take by mouth at night if needed for itching. [facility] FLUoxetine (PROzac) 20 MG capsule 12-20 00:00: 00 03-21 05:59 :00 No [id number] 20mg QD Take 1 capsule (20 mg total) by mouth 1 (one) time each day. [facility] ARIPiprazol e (Abilify) 20 MG tablet 12-20 00:00: 00 03-21 05:59 :00 No [id number] 20mg Take 1 tablet (20 mg total) by mouth every night. [facility] ARIPiprazol e (Abilify) 5 MG tablet 12-20 00:00: 00 03-21 05:59 :00 No [id number] 5mg Take 1 tablet (5 mg total) by mouth 1 (one) time each day in the morning. [facility] azithromyci n (Zithromax) 250 MG tablet 12-16 00:00: 00 Yes TAKE 2 TABLETS BY MOUTH TODAY, THEN TAKE 1 TABLET DAILY FOR 4 DAYS [facility] diphenhydrA MINE (BENADryl) 25 MG tablet 11-04 11:24: 00 Yes QD Take by mouth at night if needed for itching. [facility] nystatin (Mycostatin ) cream 11-04 00:00: 00 11-12 04:59 :00 No [id number] Q.5D Apply topically 2 (two) times a day for 7 days. [facility] predniSONE (Deltasone) 20 MG tablet 11-04 00:00: 00 11-10 04:59 :00 No [id number] 40mg QD Take 2 tablets (40 mg total) by mouth 1 (one) time each day for 5 days. [facility] lurasidone (Latuda) 20 MG tablet 10-13 00:00: 00 Yes [id number] 20mg QD Take 1 tablet (20 mg total) by mouth 1 (one) time each day. With food. [facility] diazePAM (Valium) 2 MG tablet 10-13 00:00: 00 Yes [id number] TAKE 1 TABLET (2 MG TOTAL) BY MOUTH 1 (ONE) TIME EACH DAY IF NEEDED FOR ANXIETY. [facility] ARIPiprazol e (Abilify) 20 MG tablet 10-13 00:00: 00 01-12 04:59 :00 No [id number] 20mg QD Take 1 tablet (20 mg total) by mouth 1 (one) time each day. [facility] FLUoxetine (PROzac) 20 MG capsule 10-13 00:00: 00 01-12 04:59 :00 No [id number] 20mg QD Take 1 capsule (20 mg total) by mouth 1 (one) time each day. [facility] ARIPiprazol e (Abilify) 5 MG tablet 10-13 00:00: 00 11-13 04:59 :00 No [id number] 5mg QD Take 1 tablet (5 mg total) by mouth 1 (one) time each day. (Take with Aripiprazo le 20 mg to total aripripraz ole 25 mg daily). [facility] Ivabradine HCl (Corlanor) 5 MG tablet 09-07 00:00: 00 11-05 04:59 :00 No [id number] Take 2.5 mg by mouth 2 (two) times a day for 14 days, THEN 5 mg 2 (two) times a day for 14 days, THEN 7.5 mg 2 (two) times a day. [facility] ipratropium (Atrovent) 0.02 % nebulizer solution 09-06 00:00: 00 Yes [id number] .5mg Take 2.5 mL (0.5 mg total) by nebulizati on 4 (four) times a day if needed for wheezing or shortness of breath. [facility] albuterol (2.5 MG/3ML) 0.083% nebulizer solution 09-06 00:00: 00 Yes [id number] 2.5mg Q6H Take 3 mL (2.5 mg total) by nebulizati on every 6 (six) hours if needed for wheezing or shortness of breath. [facility] Ivabradine HCl (Corlanor) 5 MG tablet 09-01 00:00: 00 10-30 04:59 :00 No [id number] Take 2.5 mg by mouth 2 (two) times a day for 14 days, THEN 5 mg 2 (two) times a day for 14 days, THEN 7.5 mg 2 (two) times a day. [facility] Acetaminoph en Acetaminoph en 08-31 10:26: 00 Yes 650 Every 6 Hours as needed for Mild Pain (1-3) Or Fever>100. [address] [facility] Albuterol Sulfate (Ventolin Hfa) 90 Mcg HFA.AER.AD Albuterol Sulfate (Ventolin Hfa) 90 Mcg HFA.AER.AD 08-31 10:26: 00 Yes 0 Rt Q4h as needed for Shortness Of Breath [facility] Albuterol/I pratropium Nebulize Albuterol/I pratropium Nebulize 08-31 10:26: 00 Yes 3 Rt Q4h as needed for Shortness Of Breath [facility] Ascorbic Acid Ascorbic Acid 08-31 10:26: 00 Yes 500 Twice A Day [facility] Azithromyci n (Z-Jordan) 250 Mg TABLET Azithromyci n (Z-Jrodan) 250 Mg TABLET 08-31 10:26: 00 Yes [address] Q[address] [facility] Cholecalcif nick Cholecalcif nick 08-31 10:26: 00 Yes [address] [facility] Docusate Sodium Docusate Sodium 08-31 10:26: 00 Yes 100 Three Times A Day [facility] Guaifenesin (Mucinex) 600 Mg TABLET.ER Guaifenesin (Mucinex) 600 Mg TABLET.ER 08-31 10:26: 00 Yes 600 Twice A Day [facility] Nirmatrelvi r/Ritonavir (Paxlovid Co-Pack (Eua)) 150 Mg X 2-100 Mg TABLET Nirmatrelvi r/Ritonavir (Paxlovid Co-Pack (Eua)) 150 Mg X 2-100 Mg TABLET 08-31 10:26: 00 Yes 3 Every [address] [facility] Pantoprazol e Sod (Protonix) 40 Mg SUSP Pantoprazol e Sod (Protonix) 40 Mg SUSP 08-31 10:26: 00 Yes [address] [facility] Zinc Sulfate Zinc Sulfate 08-31 10:26: 00 Yes [address] [facility] Zinc Sulfate 220 (50 Zn) MG tablet 08-31 00:00: 00 Yes 1{tbl} QD Take 1 tablet by mouth 1 (one) time each day. [facility] pantoprazol e (ProtoNix) 40 MG packet 08-31 00:00: 00 Yes Daily [facility] zinc sulfate 1 MG/ML injection 08-31 00:00: 00 Yes Daily [facility] pantoprazol e (ProtoNix) 40 MG EC tablet 08-31 00:00: 00 Yes 40mg QD Take 40 mg by mouth 1 (one) time each day. [facility] Paxlovid 08-31 00:00: 00 11-03 00:00 :00 No 3{tbl} Q12H Take 3 tablets by mouth every 12 (twelve) hours. [facility] benzonatate (Tessalon) 200 MG capsule 08-25 00:00: 00 Yes TAKE ONE (1) CAPSULE(S) BY MOUTH EVERY EIGHT HOURS NEEDED FOR COUGH. [facility] diazePAM (Valium) 2 MG tablet 08-15 00:00: 00 Yes [id number] TAKE 1 TABLET (2 MG TOTAL) BY MOUTH 1 (ONE) TIME EACH DAY IF NEEDED FOR ANXIETY. [facility] Ivabradine HCl (Corlanor) 7.5 MG tablet 08-03 00:00: 00 Yes [id number] 1{tbl} Q.5D Take 1 tablet by mouth 2 (two) times a day. [facility] clopidogrel (Plavix) 75 MG tablet 08-03 00:00: 00 08-04 04:59 :00 No [id number] 75mg QD Take 1 tablet (75 mg total) by mouth 1 (one) time each day. TK 1 T PO D [facility] FLUoxetine (PROzac) 20 MG capsule 07-21 00:00: 00 10-20 04:59 :00 No [id number] 20mg QD Take 1 capsule (20 mg total) by mouth 1 (one) time each day. [facility] ARIPiprazol e (Abilify) 5 MG tablet 07-21 00:00: 00 10-20 04:59 :00 No [id number] 5mg QD Take 1 tablet (5 mg total) by mouth 1 (one) time each day. Take with aripiprazo le 20 mg to total 25 mg daily. [facility] ARIPiprazol e (Abilify) 20 MG tablet 07-20 00:00: 00 10-19 04:59 :00 No [id number] 20mg QD Take 1 tablet (20 mg total) by mouth 1 (one) time each day. [facility] diphenhydrA MINE (BENADryl) 25 MG tablet 05-24 09:43: 28 Yes QD Take by mouth at night if needed for itching. [facility] albuterol (2.5 MG/3ML) 0.083% nebulizer solution 11-15 00:00: 00 Yes [id number] 2.5mg Take 3 mL (2.5 mg total) by nebulizati on every 4 (four) hours if needed for wheezing or shortness of breath. [facility] ARIPiprazol e 10 MG Oral Tablet ARIPiprazol e 10 MG Oral Tablet 07-15 00:00: 00 Yes JOSELO VARGAS M.D. TAKE 1/2 TABLET BY MOUTH THREE TIMES DAILY AND 1/2 TABLET BY MOUTH EVERY NIGHT AT BEDTIME NEEDED [facility] Azithromyci n 250 MG Oral Tablet Azithromyci n 250 MG Oral Tablet 315 00:00: 00 Yes FOZIA SIDHU M.D. TAKE 2 TABLETS ON DAY 1 THEN TAKE 1 TABLET A DAY FOR 4 DAYS. [facility] Omeprazole 40 MG Oral Capsule Delayed Release Omeprazole 40 MG Oral Capsule Delayed Release -20 00:00: 00 Yes FOZIA SIDHU M.D. Q0.5D TAKE 1 CAPSULE TWICE DAILY 30-60 minutes before a protein-co ntaining meal [facility] Fluticasone Propionate 50 MCG/ACT Nasal Suspension Fluticasone Propionate 50 MCG/ACT Nasal Suspension 06-26 00:00: 00 Yes FOZIA SIDHU M.D. QD USE 2 SPRAYS IN EACH NOSTRIL ONCE DAILY [facility] Corlanor 7.5 MG Oral Tablet Corlanor 7.5 MG Oral Tablet 06-26 00:00: 00 Yes FOZIA SIDHU M.D. 1 and half tablet PO BID [facility] Nystatin-Tr iamcinolone 573172-4.1 UNIT/GM-% External Cream Nystatin-Tr iamcinolone [id number] UNIT/GM-% External Cream 2018-03 008 00:00: 00 Yes MARINO CAPELLAN M.D. Q0.5D APPLY SPARINGLY TO AFFECTED AREA(S) TWICE DAILY [facility] FLUoxetine HCl - 20 MG Oral Capsule FLUoxetine HCl - 20 MG Oral Capsule 2014-03 00:00: 00 Yes JOSELO VARGAS M.D. TAKE 1 CAPSULE BY MOUTH DAILY [facility] Abilify 10 MG Oral Tablet Abilify 10 MG Oral Tablet 2014-03 00:00: 00 Yes JOSELO VARGAS M.D. TAKE 1/2 TAB THREE TIMES DAILY AND 1/2 TAB AT BEDTIME NEEDED [facility] Albuterol Sulfate (2.5 MG/3ML) 0.083% Inhalation Nebulizatio n Solution Albuterol Sulfate (2.5 MG/3ML) 0.083% Inhalation Nebulizatio n Solution 11-06 00:00: 00 Yes FOZIA SIDHU M.D. USE 1 VIAL VIA NEBULIZER EVERY 4 HOURS NEEDED [facility] Clopidogrel Bisulfate 75 MG Oral Tablet Clopidogrel Bisulfate 75 MG Oral Tablet 09-20 00:00: 00 Yes FOZIA SIDHU M.D. QD TAKE 1 TABLET DAILY. [facility] Aripiprazol e (Abilify) 5 Mg TABLET Aripiprazol e (Abilify) 5 Mg TABLET Yes [address] [facility] Aripiprazol e (Abilify*) 20 Mg TABLET Aripiprazol e (Abilify*) 20 Mg TABLET Yes [address] [facility] Clopidogrel Bisulfate (Plavix) 75 Mg TABLET Clopidogrel Bisulfate (Plavix) 75 Mg TABLET Yes [address] [facility] Fluoxetine Hcl Fluoxetine Hcl Yes [address] [facility] Ivabradine Hcl (Corlanor) 7.5 Mg TABLET Ivabradine Hcl (Corlanor) 7.5 Mg TABLET Yes 7.5 [address] A [address] [facility] Plavix TABS Plavix TABS Yes [facility] Immunizations Ordered Immunization Name Filled Immunization Name Date Status Comments Source Influenza Virus Vaccine Quad IM, Preserv and ABX Free 6 MO-64 YRS (FLUCELVAX) 2023-12-25 00:00:00 Completed [facility] Fluzone Quadrivalent 0.5 ML Intramuscular Suspension Prefilled Syringe 2018-12-20 11:49:00 Completed [facility] Fluzone Quadrivalent 0.5 ML Intramuscular Suspension 2017-11-30 13:18:00 Completed [facility] Fluzone Quadrivalent 0.5 ML Intramuscular Suspension 2017-01-02 11:16:00 Completed [facility] Fluzone Quadrivalent 0.5 ML Intramuscular Suspension 2016-01-13 14:22:00 Completed [facility] Influenza 2010-12-19 14:37:00 Completed [facility] Influenza 2009-12-03 17:39:00 Completed [facility] Influenza 2007-12-31 00:00:00 Completed [facility] Influenza 2007-02-25 00:00:00 Completed [facility] Td 2007-02-25 00:00:00 Completed [facility] Vital Signs Vital Name Observation Time Observation Value Comments S ource Systolic blood pressure 2024-07-18 14:16:00 91 mm[Hg] [facility] Diastolic blood pressure 2024-07-18 14:16:00 57 mm[Hg] [facility] Heart rate 2024-07-18 14:16:00 56 /min [facility] Body temperature 2024-07-18 14:16:00 36.67 Ying [facility] Respiratory rate 2024-07-18 14:16:00 18 /min [facility] Body height 2024-07-18 14:16:00 172.7 cm [facility] Body weight 2024-07-18 14:16:00 70.761 kg [facility] BMI 2024-07-18 14:16:00 23.72 kg/m2 [facility] Oxygen saturation in Arterial blood by Pulse oximetry 2024-07-18 14:16:00 98 /min [facility] Systolic blood pressure 2024-06-06 15:51:00 92 mm[Hg] [facility] Diastolic blood pressure 2024-06-06 15:51:00 57 mm[Hg] [facility] Heart rate 2024-06-06 15:51:00 50 /min [facility] Respiratory rate 2024-06-06 15:51:00 20 /min [facility] Body height 2024-06-06 15:51:00 172.7 cm [facility] Body weight 2024-06-06 15:51:00 68.04 kg [facility] BMI 2024-06-06 15:51:00 22.81 kg/m2 [facility] Oxygen saturation in Arterial blood by Pulse oximetry 2024-06-06 15:51:00 100 /min [facility] Systolic blood pressure 2024-03-03 18:05:00 94 mm[Hg] [facility] Diastolic blood pressure 2024-03-03 18:05:00 59 mm[Hg] [facility] Heart rate 2024-03-03 18:05:00 60 /min [facility] Respiratory rate 2024-03-03 18:05:00 18 /min [facility] Body height 2024-03-03 18:05:00 172.7 cm [facility] Body weight 2024-03-03 18:05:00 69.083 kg [facility] BMI 2024-03-03 18:05:00 23.16 kg/m2 [facility] Oxygen saturation in Arterial blood by Pulse oximetry 2024-03-03 18:05:00 99 /min [facility] Body height 2024-01-21 19:06:00 172.7 cm [facility] Oxygen saturation in Arterial blood by Pulse oximetry 2024-01-21 19:06:00 100 /min [facility] Systolic blood pressure 2024-01-21 19:06:00 125 mm[Hg] [facility] Diastolic blood pressure 2024-01-21 19:06:00 74 mm[Hg] [facility] Heart rate 2024-01-21 19:06:00 58 /min [facility] Respiratory rate 2024-01-21 19:06:00 18 /min [facility] Systolic blood pressure 2023-10-23 19:17:00 93 mm[Hg] [facility] Diastolic blood pressure 2023-10-23 19:17:00 59 mm[Hg] [facility] Heart rate 2023-10-23 19:16:00 72 /min [facility] Body temperature 2023-10-23 19:16:00 37.17 Ying [facility] Respiratory rate 2023-10-23 19:16:00 14 /min [facility] Body weight 2023-10-23 19:16:00 72.122 kg [facility] BMI 2023-10-23 19:16:00 24.18 kg/m2 [facility] Oxygen saturation in Arterial blood by Pulse oximetry 2023-10-23 19:16:00 96 /min [facility] Systolic blood pressure 2023-09-24 19:18:00 103 mm[Hg] [facility] Diastolic blood pressure 2023-09-24 19:18:00 63 mm[Hg] [facility] Heart rate 2023-09-24 19:18:00 63 /min [facility] Body temperature 2023-09-24 19:18:00 36.56 Ying [facility] Respiratory rate 2023-09-24 19:18:00 20 /min [facility] Body weight 2023-09-24 19:18:00 72.53 kg [facility] BMI 2023-09-24 19:18:00 24.31 kg/m2 [facility] Oxygen saturation in Arterial blood by Pulse oximetry 2023-09-24 19:18:00 95 /min [facility] Systolic blood pressure 2023-07-04 15:06:00 108 mm[Hg] [facility] Diastolic blood pressure 2023-07-04 15:06:00 73 mm[Hg] [facility] Heart rate 2023-07-04 15:06:00 65 /min [facility] Body height 2023-07-04 15:06:00 172.7 cm [facility] Body weight 2023-07-04 15:06:00 87.091 kg [facility] BMI 2023-07-04 15:06:00 29.19 kg/m2 [facility] Systolic blood pressure 2022-11-26 16:24:00 91 mm[Hg] [facility] Diastolic blood pressure 2022-11-26 16:24:00 60 mm[Hg] [facility] Body weight 2022-11-26 16:24:00 79.379 kg [facility] BMI 2022-11-26 16:24:00 26.61 kg/m2 [facility] Heart rate 2022-11-26 16:05:00 69 /min [facility] Body temperature 2022-11-26 16:05:00 36.72 Ying [facility] Respiratory rate 2022-11-26 16:05:00 20 /min [facility] Oxygen saturation in Arterial blood by Pulse oximetry 2022-11-26 16:05:00 99 /min [facility] Systolic blood pressure 2022-11-11 20:31:00 108 mm[Hg] [facility] Diastolic blood pressure 2022-11-11 20:31:00 79 mm[Hg] [facility] Heart rate 2022-11-11 20:31:00 63 /min [facility] Body temperature 2022-11-11 20:31:00 36.72 Ying [facility] Respiratory rate 2022-11-11 20:31:00 18 /min [facility] Body height 2022-11-11 20:31:00 172.7 cm [facility] Body weight 2022-11-11 20:31:00 79.379 kg [facility] BMI 2022-11-11 20:31:00 26.61 kg/m2 [facility] Oxygen saturation in Arterial blood by Pulse oximetry 2022-11-11 20:31:00 98 /min [facility] Systolic blood pressure 2022-08-11 18:19:00 108 mm[Hg] [facility] Diastolic blood pressure 2022-08-11 18:19:00 69 mm[Hg] [facility] Heart rate 2022-08-11 18:13:00 64 /min [facility] Body temperature 2022-08-11 18:13:00 36.5 Ying [facility] Systolic blood pressure 2022-03-21 19:52:00 104 mm[Hg] [facility] Diastolic blood pressure 2022-03-21 19:52:00 70 mm[Hg] [facility] Heart rate 2022-03-21 19:52:00 52 /min [facility] Body temperature 2022-03-21 19:52:00 36.67 Ying [facility] Respiratory rate 2022-03-21 19:52:00 16 /min [facility] Body height 2022-03-21 19:52:00 172.7 cm [facility] Body weight 2022-03-21 19:52:00 87.091 kg [facility] BMI 2022-03-21 19:52:00 29.19 kg/m2 [facility] Systolic blood pressure 2021-12-23 13:16:00 98 mm[Hg] [facility] Diastolic blood pressure 2021-12-23 13:16:00 68 mm[Hg] [facility] Body temperature 2021-12-23 13:16:00 36.11 Ying [facility] Respiratory rate 2021-12-23 13:16:00 16 /min [facility] Systolic blood pressure 2021-11-04 16:25:00 104 mm[Hg] [facility] Diastolic blood pressure 2021-11-04 16:25:00 71 mm[Hg] [facility] Heart rate 2021-11-04 16:25:00 64 /min [facility] Body temperature 2021-11-04 16:25:00 36.33 Ying [facility] Respiratory rate 2021-11-04 16:25:00 16 /min [facility] Body height 2021-11-04 16:25:00 172.7 cm [facility] Body weight 2021-11-04 16:25:00 94.972 kg [facility] BMI 2021-11-04 16:25:00 31.84 kg/m2 [facility] Oxygen saturation by Pulse oximetry 2021-08-31 13:10:00 98 /min [facility] BP Diastolic 2021-08-31 13:10:00 84 mm[Hg] [facility] Oxygen saturation by Pulse oximetry 2021-08-31 10:40:00 97 /min [facility] BP Diastolic 2021-08-31 10:40:00 70 mm[Hg] [facility] Oxygen saturation by Pulse oximetry 2021-08-31 10:02:00 97 /min [facility] BP Diastolic 2021-08-31 10:02:00 70 mm[Hg] [facility] Oxygen saturation by Pulse oximetry 2021-08-31 08:05:00 96 /min [facility] Oxygen saturation by Pulse oximetry 2021-08-31 07:50:00 96 /min [facility] Oxygen saturation by Pulse oximetry 2021-08-31 05:35:00 96 /min [facility] BP Diastolic 2021-08-31 05:35:00 74 mm[Hg] [facility] Oxygen saturation by Pulse oximetry 2021-08-31 02:20:00 99 /min [facility] Oxygen saturation by Pulse oximetry 2021-08-31 02:05:00 97 /min [facility] Oxygen saturation by Pulse oximetry 2021-08-31 01:00:00 95 /min [facility] BP Diastolic 2021-08-31 01:00:00 70 mm[Hg] [facility] Oxygen saturation by Pulse oximetry 2021-08-30 22:00:00 98 /min [facility] BP Diastolic 2021-08-30 22:00:00 72 mm[Hg] [facility] Oxygen saturation by Pulse oximetry 2021-08-30 21:00:00 98 /min [facility] BP Diastolic 2021-08-30 21:00:00 72 mm[Hg] [facility] Oxygen saturation by Pulse oximetry 2021-08-30 20:25:00 99 /min [facility] Oxygen saturation by Pulse oximetry 2021-08-30 20:10:00 97 /min [facility] Oxygen saturation by Pulse oximetry 2021-08-30 17:15:00 99 /min [facility] BP Diastolic 2021-08-30 17:15:00 64 mm[Hg] [facility] Oxygen saturation by Pulse oximetry 2021-08-30 14:47:00 100 /min [facility] Oxygen saturation by Pulse oximetry 2021-08-30 14:32:00 96 /min [facility] Oxygen saturation by Pulse oximetry 2021-08-30 12:56:00 95 /min [facility] BP Diastolic 2021-08-30 12:56:00 66 mm[Hg] [facility] Oxygen saturation by Pulse oximetry 2021-08-30 09:50:00 97 /min [facility] BP Diastolic 2021-08-30 09:50:00 76 mm[Hg] [facility] Oxygen saturation by Pulse oximetry 2021-08-30 09:07:00 97 /min [facility] BP Diastolic 2021-08-30 09:07:00 76 mm[Hg] [facility] Oxygen saturation by Pulse oximetry 2021-08-30 08:26:00 100 /min [facility] Oxygen saturation by Pulse oximetry 2021-08-30 08:11:00 96 /min [facility] Oxygen saturation by Pulse oximetry 2021-08-30 05:00:00 97 /min [facility] BP Diastolic 2021-08-30 05:00:00 61 mm[Hg] [facility] Oxygen saturation by Pulse oximetry 2021-08-30 01:43:00 98 /min [facility] Oxygen saturation by Pulse oximetry 2021-08-30 01:35:00 95 /min [facility] Oxygen saturation by Pulse oximetry 2021-08-30 01:00:00 94 /min [facility] BP Diastolic 2021-08-30 01:00:00 84 mm[Hg] [facility] Oxygen saturation by Pulse oximetry 2021-08-29 22:00:00 97 /min [facility] BP Diastolic 2021-08-29 22:00:00 84 mm[Hg] [facility] Oxygen saturation by Pulse oximetry 2021-08-29 21:00:00 97 /min [facility] BP Diastolic 2021-08-29 21:00:00 84 mm[Hg] [facility] Oxygen saturation by Pulse oximetry 2021-08-29 20:48:00 99 /min [facility] Oxygen saturation by Pulse oximetry 2021-08-29 20:40:00 97 /min [facility] Oxygen saturation by Pulse oximetry 2021-08-29 18:26:00 100 /min [facility] BP Diastolic 2021-08-29 18:26:00 77 mm[Hg] [facility] Oxygen saturation by Pulse oximetry 2021-08-29 13:47:00 99 /min [facility] Oxygen saturation by Pulse oximetry 2021-08-29 13:37:00 94 /min [facility] Oxygen saturation by Pulse oximetry 2021-08-29 13:31:00 100 /min [facility] BP Diastolic 2021-08-29 13:31:00 76 mm[Hg] [facility] Oxygen saturation by Pulse oximetry 2021-08-29 09:25:00 100 /min [facility] BP Diastolic 2021-08-29 09:25:00 87 mm[Hg] [facility] Oxygen saturation by Pulse oximetry 2021-08-29 09:04:00 100 /min [facility] BP Diastolic 2021-08-29 09:04:00 87 mm[Hg] [facility] Oxygen saturation by Pulse oximetry 2021-08-29 07:25:00 99 /min [facility] Oxygen saturation by Pulse oximetry 2021-08-29 07:15:00 97 /min [facility] Oxygen saturation by Pulse oximetry 2021-08-29 05:00:00 93 /min [facility] BP Diastolic 2021-08-29 05:00:00 77 mm[Hg] [facility] Oxygen saturation by Pulse oximetry 2021-08-29 01:50:00 98 /min [facility] Oxygen saturation by Pulse oximetry 2021-08-29 01:35:00 95 /min [facility] Oxygen saturation by Pulse oximetry 2021-08-29 01:00:00 95 /min [facility] BP Diastolic 2021-08-29 01:00:00 74 mm[Hg] [facility] Oxygen saturation by Pulse oximetry 2021-08-28 23:14:00 95 /min [facility] BP Diastolic 2021-08-28 23:14:00 72 mm[Hg] [facility] Oxygen saturation by Pulse oximetry 2021-08-28 21:00:00 95 /min [facility] BP Diastolic 2021-08-28 21:00:00 72 mm[Hg] [facility] Oxygen saturation by Pulse oximetry 2021-08-28 20:22:00 96 /min [facility] Oxygen saturation by Pulse oximetry 2021-08-28 18:05:00 98 /min [facility] Oxygen saturation by Pulse oximetry 2021-08-28 18:04:00 97 /min [facility] Oxygen saturation by Pulse oximetry 2021-08-28 17:55:00 98 /min [facility] Oxygen saturation by Pulse oximetry 2021-08-28 17:14:00 94 /min [facility] BP Diastolic 2021-08-28 17:14:00 78 mm[Hg] [facility] Oxygen saturation by Pulse oximetry 2021-08-28 13:26:00 97 /min [facility] BP Diastolic 2021-08-28 13:26:00 74 mm[Hg] [facility] Oxygen saturation by Pulse oximetry 2021-08-28 10:15:00 99 /min [facility] BP Diastolic 2021-08-28 10:15:00 72 mm[Hg] [facility] Oxygen saturation by Pulse oximetry 2021-08-28 09:22:00 99 /min [facility] BP Diastolic 2021-08-28 09:22:00 72 mm[Hg] [facility] Oxygen saturation by Pulse oximetry 2021-08-28 08:09:00 96 /min [facility] Oxygen saturation by Pulse oximetry 2021-08-28 08:07:00 97 /min [facility] Oxygen saturation by Pulse oximetry 2021-08-28 08:00:00 97 /min [facility] Oxygen saturation by Pulse oximetry 2021-08-28 05:00:00 93 /min [facility] BP Diastolic 2021-08-28 05:00:00 69 mm[Hg] [facility] Oxygen saturation by Pulse oximetry 2021-08-28 01:09:00 99 /min [facility] Oxygen saturation by Pulse oximetry 2021-08-28 01:00:00 96 /min [facility] BP Diastolic 2021-08-28 01:00:00 76 mm[Hg] [facility] Oxygen saturation by Pulse oximetry 2021-08-28 00:00:00 96 /min [facility] BP Diastolic 2021-08-28 00:00:00 67 mm[Hg] [facility] Oxygen saturation by Pulse oximetry 2021-08-27 21:00:00 96 /min [facility] BP Diastolic 2021-08-27 21:00:00 67 mm[Hg] [facility] Oxygen saturation by Pulse oximetry 2021-08-27 20:28:00 98 /min [facility] Oxygen saturation by Pulse oximetry 2021-08-27 20:20:00 95 /min [facility] Height 2021-08-27 19:16:[address] [facility] Weight 2021-08-27 19:16:[address] [facility] BMI (Body Mass Index) 2021-08-27 19:16:00 32.1 kg/m2 [facility] Oxygen saturation by Pulse oximetry 2021-08-27 16:56:00 97 /min [facility] BP Diastolic 2021-08-27 16:56:00 81 mm[Hg] [facility] Oxygen saturation by Pulse oximetry 2021-08-27 15:36:00 96 /min [facility] BP Diastolic 2021-08-27 15:36:00 78 mm[Hg] [facility] Oxygen saturation by Pulse oximetry 2021-08-27 15:33:00 96 /min [facility] BP Diastolic 2021-08-27 15:33:00 78 mm[Hg] [facility] Oxygen saturation by Pulse oximetry 2021-08-27 14:37:00 96 /min [facility] BP Diastolic 2021-08-27 14:37:00 78 mm[Hg] [facility] Oxygen saturation by Pulse oximetry 2021-08-27 12:50:00 98 /min [facility] Oxygen saturation by Pulse oximetry 2021-08-27 12:49:00 97 /min [facility] Oxygen saturation by Pulse oximetry 2021-08-27 12:40:00 97 /min [facility] Oxygen saturation by Pulse oximetry 2021-08-27 09:00:00 98 /min [facility] BP Diastolic 2021-08-27 09:00:00 80 mm[Hg] [facility] Systolic blood pressure 2019-08-04 11:18:00 100 mm[Hg] Location: RUE; Position: Sitting [facility] Diastolic blood pressure 2019-08-04 11:18:00 62 mm[Hg] Location: RUE; Position: Sitting [facility] Body height 2019-08-04 11:18:00 68 [in_us] [facility] Weight 2019-08-04 11:18:00 201.5 [lb_av] [facility] Body mass index (BMI) [Ratio] 2019-08-04 11:18:00 30.64 kg/m2 [facility] Body temperature 2019-08-04 11:18:00 97 [degF] Method: Oral [facility] Heart Rate 2019-08-04 11:18:00 77 /min [facility] Systolic blood pressure 2019-07-23 10:43:00 101 mm[Hg] Location: RUE; Position: Sitting [facility] Diastolic blood pressure 2019-07-23 10:43:00 66 mm[Hg] Location: RUE; Position: Sitting [facility] Body height 2019-07-23 10:43:00 68 [in_us] [facility] Weight 2019-07-23 10:43:00 190 [lb_av] [facility] Body mass index (BMI) [Ratio] 2019-07-23 10:43:00 28.89 kg/m2 [facility] Heart Rate 2019-07-23 10:43:00 69 /min [facility] Body temperature 2019-07-23 10:43:00 97.1 [degF] [facility] Systolic blood pressure 2019-05-02 15:13:00 112 mm[Hg] Location: RUE; Position: Sitting [facility] Diastolic blood pressure 2019-05-02 15:13:00 76 mm[Hg] Location: RUE; Position: Sitting [facility] Body height 2019-05-02 15:13:00 68 [in_us] [facility] Weight 2019-05-02 15:13:00 190 [lb_av] [facility] Body mass index (BMI) [Ratio] 2019-05-02 15:13:00 28.89 kg/m2 [facility] Heart Rate 2019-05-02 15:13:00 79 /min [facility] BP Systolic 2019-04-15 16:33:00 122 mm[Hg] Location: LUE; Position: Sitting [facility] BP Diastolic 2019-04-15 16:33:00 78 mm[Hg] Location: LUE; Position: Sitting [facility] Height 2019-04-15 16:33:00 68 [in_us] [facility] Weight 2019-04-15 16:33:00 209 [lb_av] [facility] Body Mass Index Calculated 2019-04-15 16:33:00 31.78 kg/m2 [facility] BP Systolic 2018-12-31 16:04:00 113 mm[Hg] Location: LUE; Position: Sitting [facility] BP Diastolic 2018-12-31 16:04:00 79 mm[Hg] Location: LUE; Position: Sitting [facility] Height 2018-12-31 16:04:00 68 [in_us] [facility] Weight 2018-12-31 16:04:00 204 [lb_av] [facility] Body Mass Index Calculated 2018-12-31 16:04:00 31.02 kg/m2 [facility] Temperature 2018-12-31 16:04:00 97.9 [degF] Method: Oral [facility] Heart Rate 2018-12-31 16:04:00 79 /min [facility] BP Systolic 2018-12-20 11:28:00 136 mm[Hg] Location: LUE; Position: Sitting [facility] BP Diastolic 2018-12-20 11:28:00 82 mm[Hg] Location: LUE; Position: Sitting [facility] Height 2018-12-20 11:28:00 68 [in_us] [facility] Weight 2018-12-20 11:28:00 208.125 [lb_av] [facility] Body Mass Index Calculated 2018-12-20 11:28:00 31.65 kg/m2 [facility] Temperature 2018-12-20 11:28:00 97.5 [degF] Method: Oral [facility] Heart Rate 2018-12-20 11:28:00 72 /min Location: L Brachial Artery; [facility] Respiration Rate 2018-12-20 11:28:00 16 /min Quality: Normal [facility] BP Systolic 2018-11-27 10:59:00 104 mm[Hg] Location: RUE; Position: Sitting [facility] BP Diastolic 2018-11-27 10:59:00 67 mm[Hg] Location: RUE; Position: Sitting [facility] Height 2018-11-27 10:59:00 68 [in_us] [facility] Weight 2018-11-27 10:59:00 204 [lb_av] [facility] Body Mass Index Calculated 2018-11-27 10:59:00 31.02 kg/m2 [facility] Temperature 2018-11-27 10:59:00 98.2 [degF] Method: Oral [facility] Heart Rate 2018-11-27 10:59:00 76 /min Location: R Brachial Artery; [facility] Respiration Rate 2018-11-27 10:59:00 18 /min Quality: Normal [facility] O2 SAT 2018-11-27 10:59:00 99 % Source: RA [facility] BP Systolic 2018-11-26 11:27:00 105 mm[Hg] Location: RUE; Position: Supine [facility] BP Diastolic 2018-11-26 11:27:00 74 mm[Hg] Location: RUE; Position: Supine [facility] Heart Rate 2018-11-26 11:27:00 75 /min Location: R Brachial Artery; Quality: Normal [facility] BP Systolic 2018-11-26 11:25:00 115 mm[Hg] Location: LUE; Position: Standing [facility] BP Diastolic 2018-11-26 11:25:00 78 mm[Hg] Location: LUE; Position: Standing [facility] Heart Rate 2018-11-26 11:25:00 123 /min Location: L Brachial Artery; Quality: Normal [facility] BP Systolic 2018-11-26 11:19:00 91 mm[Hg] Location: RUE; Position: Sitting [facility] BP Diastolic 2018-11-26 11:19:00 70 mm[Hg] Location: RUE; Position: Sitting [facility] Heart Rate 2018-11-26 11:19:00 84 /min Location: R Brachial Artery; Quality: Normal [facility] Heart Rate 2018-11-26 11:18:00 84 /min Location: R Brachial Artery; Quality: Normal [facility] BP Systolic 2018-11-26 10:57:00 106 mm[Hg] Location: RUE; Position: Sitting [facility] BP Diastolic 2018-11-26 10:57:00 72 mm[Hg] Location: RUE; Position: Sitting [facility] Height 2018-11-26 10:57:00 68 [in_us] [facility] Weight 2018-11-26 10:57:00 204 [lb_av] [facility] Body Mass Index Calculated 2018-11-26 10:57:00 31.02 kg/m2 [facility] Temperature 2018-11-26 10:57:00 98.7 [degF] Method: Oral [facility] Heart Rate 2018-11-26 10:57:00 78 /min Location: R Radial; Quality: Normal [facility] Respiration Rate 2018-11-26 10:57:00 16 /min Quality: Normal [facility] BP Systolic 2018-04-23 12:50:00 107 mm[Hg] Location: LUE; Position: Sitting [facility] BP Diastolic 2018-04-23 12:50:00 73 mm[Hg] Location: LUE; Position: Sitting [facility] Weight 2018-04-23 12:50:00 208.25 [lb_av] [facility] Body Mass Index Calculated 2018-04-23 12:50:00 31.66 kg/m2 [facility] Temperature 2018-04-23 12:50:00 97.7 [degF] Method: Oral [facility] Heart Rate 2018-04-23 12:50:00 65 /min Location: L Brachial Artery; Quality: Normal [facility] Respiration Rate 2018-04-23 12:50:00 18 /min Quality: Normal [facility] O2 SAT 2018-04-23 12:50:00 99 % Source: RA [facility] BP Systolic 2017-11-30 13:16:00 115 mm[Hg] Location: LUE; Position: Sitting [facility] BP Diastolic 2017-11-30 13:16:00 78 mm[Hg] Location: LUE; Position: Sitting [facility] Height 2017-11-30 13:16:00 68 [in_us] [facility] Weight 2017-11-30 13:16:00 203 [lb_av] [facility] Body Mass Index Calculated 2017-11-30 13:16:00 30.87 kg/m2 [facility] Temperature 2017-11-30 13:16:00 98.2 [degF] Method: Oral [facility] Heart Rate 2017-11-30 13:16:00 96 /min Location: L Radial; Quality: Normal [facility] Respiration Rate 2017-11-30 13:16:00 16 /min Quality: Normal [facility] BP Systolic 2017-08-30 10:00:00 113 mm[Hg] Location: RUE; Position: Sitting [facility] BP Diastolic 2017-08-30 10:00:00 78 mm[Hg] Location: RUE; Position: Sitting [facility] Height 2017-08-30 10:00:00 68 [in_us] [facility] Weight 2017-08-30 10:00:00 205 [lb_av] [facility] Body Mass Index Calculated 2017-08-30 10:00:00 31.17 kg/m2 [facility] Temperature 2017-08-30 10:00:00 98.3 [degF] Method: Oral [facility] Heart Rate 2017-08-30 10:00:00 78 /min [facility] BP Systolic 2017-08-06 13:24:00 95 mm[Hg] Location: LUE; Position: Sitting [facility] BP Diastolic 2017-08-06 13:24:00 63 mm[Hg] Location: LUE; Position: Sitting [facility] Height 2017-08-06 13:24:00 68 [in_us] [facility] Body Mass Index Calculated 2017-08-06 13:24:00 31.52 kg/m2 [facility] Weight 2017-08-06 13:24:00 207.3125 [lb_av] [facility] Temperature 2017-08-06 13:24:00 98 [degF] Method: Temporal [facility] Heart Rate 2017-08-06 13:24:00 81 /min [facility] Respiration Rate 2017-08-06 13:24:00 16 /min Quality: Normal [facility] BP Systolic 2017-08-06 10:29:00 107 mm[Hg] Location: RUE; Position: Sitting [facility] BP Diastolic 2017-08-06 10:29:00 74 mm[Hg] Location: RUE; Position: Sitting [facility] Height 2017-08-06 10:29:00 68 [in_us] [facility] Body Mass Index Calculated 2017-08-06 10:29:00 31.47 kg/m2 [facility] Weight 2017-08-06 10:29:00 207 [lb_av] [facility] Heart Rate 2017-08-06 10:29:00 69 /min Location: R Radial; [facility] Respiration Rate 2017-08-06 10:29:00 16 /min Quality: Normal [facility] O2 SAT 2017-08-06 10:29:00 99 % Source: RA [facility] BP Systolic 2017-07-27 10:36:00 110 mm[Hg] Location: RUE; Position: Sitting [facility] BP Diastolic 2017-07-27 10:36:00 78 mm[Hg] Location: RUE; Position: Sitting [facility] Height 2017-07-27 10:36:00 68 [in_us] [facility] Body Mass Index Calculated 2017-07-27 10:36:00 31.54 kg/m2 [facility] Weight 2017-07-27 10:36:00 207.4375 [lb_av] [facility] Temperature 2017-07-27 10:36:00 98.5 [degF] Method: Oral [facility] Heart Rate 2017-07-27 10:36:00 69 /min Location: R Brachial Artery; Quality: Normal [facility] Respiration Rate 2017-07-27 10:36:00 16 /min Quality: Normal [facility] Procedures Procedure Date / Time Performed Performing Clinician Source MR CERVICAL SPINE WO CONTRAST 2024-06-25 18:51:38 Gurpreet Valencia [facility] POCT SARS-COV-2 ANTIGEN (BINAX NOW) 2023-10-23 19:59:00 Amina Jordan [facility] POCT URINALYSIS 2023-09-24 19:50:00 Amina Jordan [facility] CARDIAC EVENT MONITOR 2023-07-19 16:39:48 Patter clemente [facility] ECG 12-LEAD 2023-07-04 19:37:25 Bray, [facility] ECG 12-LEAD 2023-07-04 19:37:25 Asa [facility] COMPREHENSIVE METABOLIC PANEL 2023-07-04 16:50:00 Bray, [facility] HEMOGLOBIN A1C 2023-07-04 16:50:00 Bray, [facility] MAGNESIUM 2023-07-04 16:50:00 Gabriel Bray [facility] PHOSPHORUS 2023-07-04 16:50:00 Asa [facility] CBC AND DIFFERENTIAL 2023-07-04 16:50:00 Tae garcia [facility] THYROID PANEL WITH TSH 2023-07-04 16:50:00 Nicole brewer [facility] XR CHEST 2 VW 2022-11-26 16:48:00 [facility]U 2022-11-26 16:38:00 Unknown, Attend ing [facility] POCT MOLECULAR STREP 2022-11-26 16:36:00 Unknown, Atte nding [facility] POCT SARS-COV-2 ANTIGEN (BINAX NOW) 2022-11-26 16:05:00 Lawrence Barfield [facility] CONSENT/REFUSAL FOR DIAGNOSIS AND TREATMENT 2022-11-11 20:22:06 Doctor Unassigned, [place] [facility] XR KNEE 4+ VIEWS RIGHT 2021-11-04 18:38:56 Krista Samuel [facility] X-ray of chest, two views 2021-08-31 00:00:[address] [facility] [QL] CMP W/EGFR 2019-10-20 00:00:00 [facility] MRI Spine lumbar wo contrast [id number] 2019-10-20 00:00:00 [facility] . [facility] - PAP 2019-05-02 00:00:00 [facility] [QL] CULTURE, URINE, ROUTINE 2019-05-02 00:00:00 [facility] [QLH] URINALYSIS, COMPLETE 2019-05-02 00:00:00 [facility] US Pelvis with Pelvis Transvaginal [id number] 2019-04-15 00:00:00 [facility] [QLH] CULTURE, URINE, ROUTINE 2018-12-31 00:00:00 [facility] [QLH] URINALYSIS, COMPLETE 2018-12-03 00:00:00 [facility] [QLH] CULTURE, URINE, ROUTINE 2018-12-03 00:00:00 [facility] [N] 2D Echo complete, with Doppler [id number] 2018-11-26 00:00:00 [facility] [QLH] CMP W/EGFR 2018-04-23 00:00:00 [facility] [[facility]] LIPID PANEL 2018-04-23 00:00:00 [facility] [QL] TSH, 3RD GENERATION W/REFLEX TO FT4 2018-04-23 00:00:00 [facility] [QL] CBC (INCLUDES DIFF/PLT) 2018-04-23 00:00:00 [facility] [QL] HEMOGLOBIN A1c 2018-04-23 00:00:00 [facility] [QL] URINALYSIS, COMPLETE 2017-11-30 00:00:00 [facility] [QL] CULTURE, URINE, ROUTINE 2017-11-30 00:00:00 [facility] US Pelvis Transvaginal [id number] 2017-11-30 00:00:00 [facility] History of Appendectomy [facility] History of Cholecystectomy [facility] History of [facility]ophorectomy [facility] Plan of Care Planned Activity Planned Date Details Comments Source Diagnostic Test Pending 2018-12-17 00:00:00 [N] 2D Echo complete, with Doppler 88023 [code = [N] 2D Echo complete, with Doppler 84509] [facility] Instructions Bradycardia, Adult [facility] Instructions COVID-19: What t o Do If You Are Sick - [facility] (03/02/2021) [facility] Encounters Start Date/Time End Date/Time Encounter Type Admission Type Attending Clinicians Care Facility Care Department Encounter ID Source 2024-06-16 09:03:01 Outpatient No, PCP [facility]LS [facility] [id number] [facility] 2022-09-25 15:24:44 Outpatient [facility] [id number] [facility] 2022-09-07 14:39:03 Outpatient [facility] [id number] [facility] 2022-08-18 18:03:14 Outpatient [facility] [id number] [facility] 2022-08-14 08:50:00 Outpatient [facility] [id number] [facility] 2022-08-11 13:01:14 Outpatient [facility] [id number] [facility] 2022-08-09 06:27:55 Outpatient [facility] [id number] [facility] 2022-07-14 12:02:17 Outpatient [facility] [id number] [facility] 2022-07-05 09:10:34 Outpatient [facility] [id number] [facility] 2022-07-03 12:49:26 Outpatient [facility] [id number] [facility] 2022-06-12 01:00:03 Outpatient [facility] [id number] [facility] 2022-05-05 14:53:16 Outpatient [facility] [id number] [facility] 2022-04-21 13:19:28 Outpatient [facility] [id number] [facility] 2022-04-03 09:54:00 Outpatient [facility] [id number] [facility] 2022-03-07 14:20:29 Outpatient [facility] [id number] [facility] 2022-01-13 10:01:15 Outpatient [facility] [id number] [facility] 2021-05-24 09:33:07 Outpatient MK NUNEZ [facility] [id number] [facility] 2021-05-20 07:40:38 Outpatient JAI SAMUEL [facility] [id number] [facility] 2021-05-19 11:18:59 Outpatient MK NUNEZ [facility] [id number] [facility] 2021-04-14 14:58:36 Outpatient MK NUNEZ [facility] [id number] [facility] 2021-02-01 15:47:47 Outpatient MARK CLEMONS [facility] [id number] [facility] 2021-01-20 13:22:10 Outpatient MK NUNEZ [facility] [id number] [facility] 2021-01-18 09:09:29 Outpatient CEDENOSANATHALIA [facility] [id number] [facility] 2020-09-14 12:17:06 Outpatient BLADIMIR COBRETT [facility] [id number] [facility] 2020-09-14 12:03:08 Outpatient MARSHALL VARGASEMAVic [facility] [id number] [facility] 2020-08-19 11:51:51 Outpatient [facility] [id number] [facility] 2020-08-19 11:48:03 Outpatient BRYON CHERY [facility] [id number] [facility] 2020-08-19 11:39:27 Outpatient [facility] [id number] [facility] 2020-08-10 10:51:30 Outpatient JOSELO VARGAS [facility] [id number] [facility] 2020-08-04 08:20:39 Outpatient DAVID CAVAZOS [facility] [id number] [facility] 2020-07-31 02:52:05 Outpatient [facility] [id number] [facility] 2024-07-20 00:00:00 2024-07-20 22:29:03 Nurse Triage Aimee Amanda Jenny L [facility] 1.2.840.114 350.1.13.10 4.2.7.2.686 [id number] [facility] 2024-07-18 10:15:00 2024-07-18 10:30:00 Tobacco Checkout Clerk Visit Draw, [facility] Jayy Kay Draw, [facility] 1..840.114 350.1.13.10 4.2.7.2.686 [id number] [facility] 2024-07-18 10:15:00 2024-07-18 10:15:00 Outpatient R JAYY KAY [facility] [id number] [facility] 2024-07-18 09:30:00 2024-07-18 10:00:00 Office Visit Jayy Kay [facility] 1..840.114 350.1.13.10 4.2.7.2.686 [id number] [facility] 2024-07-16 00:00:00 2024-07-17 10:40:02 Telephone Jayy Kay [facility] 1..840.114 350.1.13.10 4.2.7.2.686 [id number] [facility] 2024-07-09 13:17:32 2024-07-09 23:59:00 Outpatient Debbie MURILLO GONZALEZ JAYY [facility] [id number] [facility] 2024-07-09 13:17:32 2024-07-09 23:59:00 Hospital Encounter Tae Gardunodad Jayy [facility] 1.2.840.114 350.1.13.10 4.2.7.2.686 [id number] [facility] 2024-06-25 12:56:10 2024-06-25 23:59:00 Outpatient GURPREET MELENDEZ HOWARD [facility] [id number] [facility] 2024-06-25 12:56:10 2024-06-25 23:59:00 Hospital Encounter Gurpreet Valencia [facility] 1..840.114 350.1.13.10 4.2.7.2.686 [id number] [facility] 2024-06-20 10:00:00 2024-06-20 10:00:00 Outpatient JAYY BAILEY [facility] [id number] [facility] 2024-06-06 10:40:00 2024-06-06 11:31:25 Outpatient GURPREET MELENDEZ HOWARD [facility] [id number] [facility] 2024-06-06 10:40:00 2024-06-06 11:31:25 Office Visit Gurpreet Valencia [facility] KAROL HUERTA?[facility] 1.2.840.114 350.1.13.10 4.2.7.2.686 [id number] [facility] 2024-06-02 10:30:00 2024-06-02 10:46:28 Outpatient JAYY BAILEY [facility] [id number] [facility] 2024-05-20 12:40:00 2024-05-20 12:40:00 Outpatient GURPREET MELENDEZ HOWARD [facility] [id number] [facility] 2024-04-28 13:21:13 2024-04-28 13:21:13 Outpatient [facility]ADO [facility] [id number] Adriel Whitmore 2024-04-21 00:00:00 2024-04-25 09:40:02 Telephone ErikGurpreet zaidi [facility] 1..840.114 350.1.13.10 4.2.7.2.686 [id number] [facility] 2024-03-07 16:41:13 2024-03-07 23:59:00 Outpatient GURPREET MELENDEZ HOWARD [facility] [id number] [facility] 2024-03-07 16:41:13 2024-03-07 23:59:00 Hospital Encounter Gurpreet Valencia Robbie [facility] 1..840.114 350.1.13.10 4.2.7.2.686 [id number] [facility] 2024-03-04 17:40:00 2024-03-04 17:40:00 Outpatient VLADIMIR NATHAN [facility] [id number] [facility] 2024-03-03 12:20:00 2024-03-03 15:33:56 Outpatient Debbie ERIK, GURPREET VALENTINE [facility] [id number] [facility] 2024-03-03 12:20:00 2024-03-03 15:33:56 Office Visit ErikGurpreet zaidi [facility] 1..840.114 350.1.13.10 4.2.7.2.686 [id number] [facility] 2024-02-27 13:20:2024-02-27 13:20:03 Outpatient SFA SFA [id number] Adriel Whitmore 2024-02-11 11:30:00 2024-02-11 11:30:00 Outpatient JAYY BAILEY [facility] [id number] [facility] 2024-02-07 13:40:00 2024-02-07 13:40:00 Outpatient JAI SAMUEL [facility] [id number] [facility] 2024-01-30 13:19:08 2024-01-30 13:19:08 Outpatient SFA SFA [id number] Adriel Whitmore 2024-01-21 00:00:00 2024-01-22 11:24:09 [facility] 1.2.840.114 350.1.13.10 4.2.7.2.686 [id number] [facility] 2024-01-21 14:00:00 2024-01-21 14:30:00 Office Visit Chong Mccarthysdvic [facility] 1.2.840.114 350.1.13.10 4.2.7.2.686 [id number] [facility] 2024-01-21 14:00:00 2024-01-21 14:00:00 Outpatient R TJ MCCARTHY [facility] [id number] [facility] 2023-12-04 17:40:00 2023-12-04 17:42:28 Outpatient VLADIMIR MARES [facility] [id number] [facility] 2023-12-03 17:20:00 2023-12-03 17:20:00 Outpatient BernardaHODANVLADIMIR BISHOP [facility] [id number] [facility] 2023-11-27 14:00:00 2023-11-27 14:00:00 Outpatient MIRTA LEDESMA [facility] [id number] [facility] 2023-11-07 17:40:00 2023-11-07 18:06:17 Outpatient VLADIMIR NATHAN [facility] [id number] [facility] 2023-10-25 00:00:00 2023-10-25 14:17:09 Telephone Adams Rashmi [facility] 1.2.840.114 350.1.13.10 4.2.7.2.686 [id number] [facility] 2023-10-24 00:00:00 2023-10-24 14:51:22 Letter (Out) Cassie Cheek [facility] 1.2.840.114 350.1.13.10 4.2.7.2.686 [id number] [facility] 2023-10-24 14:00:00 2023-10-24 14:00:00 Outpatient R [facility] [id number] [facility] 2023-10-23 14:00:00 2023-10-23 14:38:46 Outpatient R AMINA JORDAN [facility] [id number] [facility] 2023-10-23 14:00:00 2023-10-23 14:38:46 Urgent Care Amina Jordan, Attending [facility] 1.2.840.114 350.1.13.10 4.2.7.2.686 [id number] [facility] 2023-09-24 00:00:00 2023-09-24 16:18:21 Refill Amina Jordan [facility] 1.2.840.114 350.1.13.10 4.2.7.2.686 [id number] 370 [id number] [facility] 2023-09-24 14:00:00 2023-09-24 15:00:00 Outpatient R AMINA JORDAN [facility] [id number] [facility] 2023-09-24 14:00:00 2023-09-24 15:00:00 Urgent Care Amina Jordan Unknown, Attending [facility] K[facility]OL HUERTA[facility] 1.2.840.114 350.1.13.10 4.2.7.2.686 [id number] 370 [id number] [facility] 2023-08-17 10:30:00 2023-08-17 13:47:53 Telephonic Encounter GABRIEL BRAY [facility] [address] 1.2.840.114 350.1.13.58 9.2.7.2.686 [id number] [facility] 2023-08-06 17:40:00 2023-08-06 17:53:46 Outpatient VENITAEBI [facility] [id number] [facility] 2023-07-04 16:00:00 2023-07-04 16:41:15 Outpatient [facility] [id number] [facility] 2023-07-04 11:25:00 2023-07-04 12:20:37 Outpatient [facility] [id number] [facility] 2023-07-04 09:45:00 2023-07-04 11:33:05 Office Visit Gabriel Bray [facility] [address] 1.2.840.114 350.1.13.58 9.2.7.2.686 [id number] [facility] 2023-05-10 16:20:00 2023-05-10 16:20:00 Outpatient JAI SAMUEL [facility] [id number] [facility] 2023-05-07 17:40:00 2023-05-07 17:57:36 Outpatient JENNIFERVLADIMIR BISHOP [facility] [id number] [facility] 2023-04-06 10:30:00 2023-04-06 10:30:00 Outpatient ASA GABRIEL [facility] [id number] [facility] 2023-02-05 10:20:00 2023-02-05 10:20:00 Outpatient STEPHEN NATHANOZI [facility] [id number] [facility] 2023-01-31 17:40:00 2023-01-31 17:37:07 Outpatient VLADIMIR NATHAN [facility] [id number] [facility] 2022-11-26 11:31:46 2022-11-26 23:59:00 Hospital Encounter Lawrence Barfield [facility] 1.2.840.114 350.1.13.10 4.2.7.2.686 [id number] [facility] 2022-11-26 10:40:00 2022-11-26 12:04:21 Outpatient LAWRENCE PORTER [facility] [id number] [facility] 2022-11-26 10:40:00 2022-11-26 11:00:00 Urgent Care Lawrence Barfield, Attending [facility] 1.2.840.114 350.1.13.10 4.2.7.2.686 [id number] [facility] 2022-11-26 00:00:00 2022-11-26 00:00:00 Telephone Lawrence Barfield [facility] 1.2.840.114 350.1.13.10 4.2.7.2.686 [id number] 370 [id number] [facility] 2022-11-11 15:00:00 2022-11-11 15:20:00 Urgent Care Timoteo Koch Unknown, Attending [facility] 1.2.840.114 350.1.13.10 4.2.7.2.686 [id number] [facility] 2022-11-11 15:00:00 2022-11-11 15:00:00 Outpatient TIMOTEO CANADA [facility] [id number] [facility] 2022-11-11 00:00:00 2022-11-11 00:00:00 Orders Only Doctor Unassigned, [place] [facility] 1.2840.114 350.1.13.10 4.2.7.2.686 [id number] [facility] 2022-11-06 09:00:00 2022-11-06 09:10:38 Outpatient VLADIMIR NATHAN [facility] [id number] [facility] 2022-11-03 11:00:00 2022-11-03 11:20:00 Telemedici ne Aime Tsang [facility] [address] 1.2.840.114 350.1.13.58 9.2.7.2.686 [id number] [facility] 2022-09-04 13:00:00 2022-09-04 13:14:53 Telemedici ne Zenaida Mendiola [facility] 1.2840.114 350.1.13.58 9.2.7.2.686 [id number] [facility] 2022-09-04 10:50:00 2022-09-04 11:16:30 Telemedici ne Jai Samuel [facility] [address] 1.2.840.114 350.1.13.58 9.2.7.2.686 [id number] [facility] 2022-08-14 09:00:00 2022-08-14 09:06:02 Outpatient VLADIMIR NATHAN [facility] [id number] [facility] 2022-08-11 13:20:00 2022-08-11 14:05:02 Office Visit Marlene Daigle [facility] [address] 1.2.840.114 350.1.13.58 9.2.7.2.686 [id number] [facility] 2022-08-02 10:30:00 2022-08-02 10:30:00 Outpatient JAGDEEP STUBBS [facility] [id number] [facility] 2022-07-04 16:00:00 2022-07-04 16:24:07 Telemedici ne JimmieJai [facility] [address] 1.2.840.114 350.1.13.58 9.2.7.2.686 [id number] [facility] 2022-06-19 10:50:00 2022-06-19 10:50:00 Outpatient JAI SAMUEL [facility] [id number] [facility] 2022-04-19 10:30:00 2022-04-19 10:30:00 Outpatient JAGDEEP STUBBS [facility] [id number] [facility] 2022-04-11 10:45:00 2022-04-11 11:33:15 Office Visit Argenis Sequeira [facility] 1 1.2.840.114 350.1.13.58 9.2.7.2.686 [id number] [facility] 2022-03-29 11:30:00 2022-03-29 11:30:00 Outpatient ARGENIS SEQUEIRA [facility] [id number] [facility] 2022-03-21 14:20:00 2022-03-21 14:40:48 Office Visit Jai Samuel [facility] [address] 1.2.840.114 350.1.13.58 9.2.7.2.686 [id number] [facility] 2022-03-06 00:00:00 2022-03-06 00:00:00 Nurse Triage Ingrid Lares Mariamma [facility] 1.2.840.114 350.1.13.58 9.2.7.2.686 [id number] [facility] 2022-02-28 10:50:00 2022-02-28 11:14:09 Telemedici ne Jai Samuel [facility] [address] 1.2.840.114 350.1.13.58 9.2.7.2.686 [id number] [facility] 2022-02-21 13:00:00 2022-02-21 13:27:40 Outpatient MAYRA MK [facility] [id number] [facility] 2022-02-21 10:45:00 2022-02-21 10:45:00 Outpatient ARGENIS SEQUEIRA [facility] [id number] [facility] 2022-02-06 10:10:00 2022-02-06 10:10:00 Outpatient JAI SAMUEL [facility] [id number] [facility] 2022-02-01 11:30:00 2022-02-01 15:04:27 Outpatient GABRIEL BRAY [facility] [id number] [facility] 2022-01-10 11:30:00 2022-01-10 12:10:57 Office Visit Argenis Sequeira [place] [id number] 1.2.840.114 350.1.13.58 9.2.7.2.686 [id number] [facility] 2022-01-10 11:05:00 2022-01-10 11:05:00 Outpatient [facility] [id number] [facility] 2022-01-10 11:00:00 2022-01-10 11:00:00 Outpatient [facility] [id number] [facility] 2022-01-04 11:00:00 2022-01-04 11:00:00 Outpatient ARGENIS SEQUEIRA [facility] [id number] [facility] 2021-12-23 08:10:00 2021-12-23 08:49:02 Office Visit Jai Samuel [facility] [address] 1.2.840.114 350.1.13.58 9.2.7.2.686 [id number] [facility] 2021-12-20 13:00:00 2021-12-20 13:25:07 Outpatient MK NUNEZ [facility] [id number] [facility] 2021-12-08 08:50:00 2021-12-08 08:50:00 Outpatient SEB LEBLANC [facility] [id number] [facility] 2021-12-05 00:00:00 2021-12-05 00:00:00 Nurse Triage Pancho Yu Jeff [facility] 1.2.840.114 350.1.13.58 9.2.7.2.686 [id number] [facility] 2021-12-02 07:50:00 2021-12-02 07:50:00 Outpatient JAI SAMUEL [facility] [id number] [facility] 2021-11-23 09:00:00 2021-11-23 09:00:00 Outpatient BRAYGABRIEL GARCIA [facility] [id number] [facility] 2021-11-04 11:10:00 2021-11-04 11:30:00 Office Visit Jai Samuel [facility] [address] 1.2.840.114 350.1.13.58 9.2.7.2.686 [id number] 1 [id number] [facility] 2021-11-02 00:00:00 2021-11-02 00:00:00 Telephone Gabriel Bray [facility] [address] 1.2.840.114 350.1.13.58 9.2.7.2.686 [id number] [facility] 2021-09-06 16:30:00 2021-09-06 17:21:43 Telemedici ne Jai Samuel [facility] [address] 1.2.840.114 350.1.13.58 9.2.7.2.686 [id number] 1 [id number] [facility] 2021-09-01 00:00:00 2021-09-01 00:00:00 Telephone Kendra Gibbons Jennifer [facility] 1.2.840.114 350.1.13.58 9.2.7.2.686 [id number] [facility] 2021-09-01 00:00:00 2021-09-01 00:00:00 Telephone Nathalia Cedeno [facility] [address] 1.2.840.114 350.1.13.58 9.2.7.2.686 [id number] 1 [id number] [facility] 2021-08-27 08:48:00 2021-08-31 14:05:00 Outpatient [address] [facility] [id number] [facility] 2021-08-27 08:48:00 2021-08-31 14:05:00 [facility] [id number] [facility] 2021-08-27 07:48:00 2021-08-31 13:05:[address] [facility] [id number] [facility] 2021-08-27 00:00:00 2021-08-27 00:00:00 Telephone Ericka Coley Elvia [facility] 1.2.840.114 350.1.13.58 9.2.7.2.686 [id number] [facility] 2021-08-24 19:50:00 2021-08-24 21:25:00 Emergency EM Shereetee Clarissa [facility] [id number] [facility] 2021-08-24 19:50:00 2021-08-24 21:25:00 Emergency EM Shereetee Clarissa [facility] [id number] [facility] 2021-08-03 11:00:00 2021-08-03 11:29:39 Telephonic Encounter Mark Clemons [facility] [address] 1.2.840.114 350.1.13.58 9.2.7.2.686 [id number] 1 [id number] [facility] 2021-07-26 00:00:00 2021-07-26 00:00:00 Telephone Mark Clemons [facility] [address] 1.2.840.114 350.1.13.58 9.2.7.2.686 [id number] 1 [id number] [facility] 2021-07-20 00:00:00 2021-07-20 00:00:00 Telephone Jones Pool Nanayaa [facility] 1.2.840.114 350.1.13.58 9.2.7.2.686 [id number] 1 [id number] [facility] 2021-05-23 15:40:00 2021-05-23 15:40:00 Telemedici Amy Pool [facility] [address] 1.2.840.114 350.1.13.58 9.2.7.2.686 [id number] 1 [id number] [facility] 2021-03-03 00:00:00 2021-03-03 00:00:00 Refill Rosio Segundo [facility] [address] 1.2.840.114 350.1.13.58 9.2.7.2.686 [id number] 1 [id number] [facility] 2021-02-01 15:48:28 2021-02-01 15:48:50 Telephonic Encounter Mark Clemons [facility] [address] 1.2.840.114 350.1.13.58 9.2.7.2.686 [id number] 1 [id number] [facility] 2021-01-21 00:00:00 2021-01-21 00:00:00 Abstract Bernie Yepez Lilliann [facility] [address] 1.2.840.114 350.1.13.58 9.2.7.2.686 [id number] 1 [id number] [facility] 2021-01-18 00:00:00 2021-01-18 00:00:00 Refill Mark Clemons [facility] [address] 1.2.840.114 350.1.13.58 9.2.7.2.686 [id number] 1 [id number] [facility] 2021-01-07 00:00:00 2021-01-07 00:00:00 Telephone Bladimir Corbett [facility] [address] 1.2.840.114 350.1.13.58 9.2.7.2.686 [id number] 2 [id number] [facility] 2020-12-08 00:00:00 2020-12-08 00:00:00 Refill Mark Clemons [facility] [address] 1.2.840.114 350.1.13.58 9.2.7.2.686 [id number] [facility] 2020-11-17 07:39:21 2020-11-17 07:59:21 Telemedici yary Jai Samuel [facility] [address] 1.2.840.114 350.1.13.58 9.2.7.2.686 [id number] 1 [id number] [facility] 2020-11-15 00:00:00 2020-11-15 00:00:00 Telephone Fozia Sidhu [facility] [address] 1.2.840.114 350.1.13.58 9.2.7.2.686 [id number] 1 [id number] [facility] 2020-11-11 00:00:00 2020-11-11 00:00:00 Telephone Fozia Sidhu [facility] [address] 1.2.840.114 350.1.13.58 9.2.7.2.686 [id number] [facility] 2020-09-16 00:00:00 2020-09-16 00:00:00 Refill Neva Laguna Shari [facility] [id number] [facility] 2020-06-30 09:45:00 2020-06-30 09:45:00 Appointmen t; MARK CLEMONS NP SADIKOVIC, ALIJANA, NP [facility]TP [facility] [id number] [facility] 2020-06-23 11:30:00 2020-06-23 11:30:00 Appointmen t; MARK CLEMONS NP SADIKOVIC, ALIJANA, NP [facility]TP [facility]TP [id number] [facility] 2020-06-14 11:00:00 2020-06-14 11:00:00 Appointmen t; JOSELO VARGAS M.D. HAN, SHAOJIE, M.D. [facility] Multispecia [facility]ty - Internation [facility] [id number] [facility] 2020-06-10 10:30:00 2020-06-10 10:30:00 Appointmen t; JOSELO VARGAS M.D. HAN, SHAOJIE, M.D. [facility] [id number] [facility] 2020-06-07 07:50:00 2020-06-07 07:50:00 Appointmen t; FOZIA SIDHU M.D. ZULFIQAR, AMBER, M.D. [facility] [id number] [facility] 2020-04-14 11:30:00 2020-04-14 11:30:00 Appointmen t; JOSELO VARGAS M.D. HAN, SHAOJIE, M.D. [facility] Multispecia [facility]ty - [facility] [id number] [facility] 2020-04-14 09:50:00 2020-04-14 09:50:00 Appointmen t; FOZIA SIDHU M.D. ZULFIQAR, AMBER, M.D. [facility] [id number] [facility] 2020-01-19 11:10:00 2020-01-19 11:10:00 Appointmen t; FOZIA SIDHU M.D. ZULFIQAR, AMBER, M.D. [facility] [id number] [facility] 2019-11-18 11:00:00 2019-11-18 11:00:00 Appointmen t; JOSELO VARGAS M.D. HAN, SHAOJIE, M.D. [facility] [id number] [facility] 2019-11-13 13:00:00 2019-11-13 13:00:00 Appointmen t; JOSELO VARGAS M.D. HAN, SHAOJIE, M.D. [facility] Multispecia [facility]ty - [facility] [id number] [facility] 2019-11-06 10:30:00 2019-11-06 10:30:00 Appointmen t; MARK CLEMONS NP SADIKOVIC, ALIJANA, NP [facility] [id number] [facility] 2019-10-20 10:10:00 2019-10-20 10:10:00 Appointmen t; FOZIA SIDHU M.D. ZULFIQAR, AMBER, M.D. [facility] [id number] [facility] 2019-09-19 09:00:2019-09-19 09:00:00 Appointmen t; SLICK DUNAWAY M.D. KATZ, ALLAN, M.D. [facility] [id number] [facility] 2019-09-15 13:30:00 2019-09-15 13:30:00 Appointmen t; CODEY PHELPS M.D. BHALWAL, ASHA, M.D. [facility] [id number] [facility] 2019-08-12 11:30:00 2019-08-12 11:30:00 Appointmen t; MARK CLEMONS NP SADIKOVIC, ALIJANA, NP [facility] [id number] [facility] 2019-08-04 11:00:00 2019-08-04 11:00:00 Appointmen t; CODEY PHELPS M.D. BHALWAL, ASHA, M.D. [facility] [id number] [facility] 2019-07-24 13:05:00 2019-07-27 19:10:00 Inpatient U CODEY PHELPS [facility] [address] [facility] 2019-07-24 13:00:00 2019-07-24 13:00:00 Appointmen t; ZAY GRANADO M.D. ASSASSI, SHERVIN, M.D. [facility] [id number] [place] [facility] 2019-07-23 10:30:00 2019-07-23 10:30:00 Appointmen t; ROXANA MULLER M.D. BATISTE, OLIVER, M.D. [facility] Obstetrics and Gynecology [facility] [id number] [place] [facility] 2019-07-16 15:30:00 2019-07-16 15:30:00 Appointmen t; MARK CLEMONS NP SADIKOVIC, ALIJANA, NP [facility] [id number] [place] [facility] 2019-06-27 13:00:00 2019-06-27 13:00:00 Appointmen t; FOZIA SIDHU M.D. ZULFIQAR, AMBER, M.D. [facility] Family Medicine [facility] [id number] [place] [facility] 2019-06-17 12:00:00 2019-06-17 12:00:00 Appointmen t; JOSELO VARGAS M.D. HAN, SHAOJIE, M.D. [facility] Multispecia lty - Internation [facility] [id number] [place] [facility] 2019-05-13 11:00:00 2019-05-13 11:00:00 Appointmen t; MARK CLEMONS NP SADIKOVIC, ALIJANA, NP [facility] [id number] [place] [facility] 2019-05-09 10:45:00 2019-05-09 10:45:00 Appointmen t; ANABEL ARIAS M.D. AYOUB, HAJAR, M.D. [facility] [id number] [place] [facility] 2019-05-02 15:00:00 2019-05-02 15:00:00 Appointmen t; FRED VERA M.D. IKWUAGWU, TIFFANY, M.D. [facility] Women's Center [facility] [id number] [place] [facility] 2019-04-28 12:36:00 2019-04-28 12:36:00 Emergency E [id number] 2019-04-15 15:40:00 2019-04-15 15:40:00 Appointmen t; ASHLEY CORONEL M.D. MAREDIA, SUBHRATHA, M.D. [facility] [id number] [place] [facility] 2019-02-26 10:30:00 2019-02-26 10:30:00 Appointmen t; ANABEL ARIAS M.D. AYOUB, HAJAR, M.D. [facility] [id number] [place] [facility] 2018-12-31 15:00:00 2018-12-31 15:00:00 Appointmen t; MARINO CAPELLAN M.D. SIDDIQUI, GAZALA, M.D. [facility] Women's Center - [facility] [id number] [place] [facility] [facility] 2018-12-25 13:30:00 2018-12-25 13:30:00 Appointmen t; MARK CLEMONS, MARK SOSA NP [facility] [id number] [place] [facility] 2018-12-20 11:30:00 2018-12-20 11:30:00 Appointmen t; MED PROVIDER, TCM MED PROVIDER, TCM [facility] Centralized Case Management [id number] [place] [facility] 2018-12-08 20:00:00 2018-12-08 11:53:00 Inpatient E [facility] [address] [facility] 2018-11-27 13:45:00 2018-11-27 13:45:00 Appointmen t; NATHALIA CEDENO M.D. SHARMA, SAUMYA, M.D. [facility] [id number] [place] [facility] 2018-11-27 10:30:00 2018-11-27 10:30:00 Appointmen t; JOSELO VARGAS M.D. HAN, SHAOJIE, M.D. [facility] Multispecia lty - Internation [facility] [id number] [place] [facility] 2018-11-26 13:30:00 2018-11-26 13:30:00 Appointmen t; HOLTER, NON-INVASI VE HOLTER, NON-INVASIV E [facility] Non-Invasiv e - [facility] [id number] [place] [facility] 2018-11-26 10:30:00 2018-11-26 10:30:00 Appointmen t; FOZIA SIDHU M.D. ZULFIQAR, AMBER, M.D. [facility] Family Medicine - [facility] [id number] [place] [facility] [facility] 2018-11-01 10:09:00 2018-10-31 20:37:00 Inpatient E [facility] [address] [facility] 2018-09-09 09:20:00 2018-09-09 09:20:00 Appointmen t; JORDI WONG M.D. LOGHIN, CATALIN, M.D. [facility] [id number] [place] [facility] 2018-04-23 13:00:00 2018-04-23 13:00:00 Appointmen t; JOSELO VARGAS M.D. HAN, SHAOJIE, M.D. [facility] [id number] [place] [facility] 2018-03-06 12:00:00 2018-03-06 12:00:00 Appointmen t; JOSELO VARGAS M.D. HAN, SHAOJIE, M.D. [facility] [id number] [place] [facility] 2018-02-19 11:30:00 2018-02-19 11:30:00 Appointmen t; JOSELO VARGAS M.D. HAN, SHAOJIE, M.D. [facility] [id number] [place] [facility] 2018-02-19 11:30:00 2018-02-19 11:30:00 Appointmen t; JOSELO VARGAS M.D. HAN, SHAOJIE, M.D. [facility] [id number] [place] [facility] 2017-12-26 14:30:00 2017-12-26 14:30:00 Appointmen t; KARINE SCHMIDT M.D. LE, TRAN, M.D. [facility] [id number] [place] [facility] 2017-11-30 13:00:00 2017-11-30 13:00:00 Appointmen t; FOZIA SIDHU M.D. ZULFIQAR, AMBER, M.D. [facility] Family Medicine [id number] [place] [facility] 2017-11-21 11:00:00 2017-11-21 11:00:00 Appointmen t; JOSELO VARGAS M.D. HAN, SHAOJIE, M.D. [facility] Psychiatry [id number] [place] [facility] 2017-11-06 12:00:00 2017-11-06 12:00:00 Appointmen t; JOSELO VARGAS M.D. HAN, SHAOJIE, M.D. [facility] [id number] [place] [facility] 2017-08-30 10:00:00 2017-08-30 10:00:00 Appointmen t; MARINO CAPELLAN M.D. SIDDIQUI, GAZALA, M.D. [facility] [id number] [place] [facility] 2017-08-06 14:00:00 2017-08-06 14:00:00 Appointmen t; JOSELO VARGAS M.D. HAN, SHAOJIE, M.D. [facility] [id number] [place] [facility] 2017-08-06 10:40:00 2017-08-06 10:40:00 Appointmen t; JORDI WONG M.D. LOGHIN, CATALIN, M.D. [facility] [id number] [place] [facility] 2017-07-27 10:30:00 2017-07-27 10:30:00 Appointmen t; FOZIA SIDHU M.D. ZULFIQAR, AMBER, M.D. [facility] Family Medicine [id number] [place] [facility] 2017-06-26 13:30:00 2017-06-26 13:30:00 Appointmen t; JOSELO VARGAS M.D. HAN, SHAOJIE, M.D. [facility] [id number] [place] [facility] 2017-04-24 12:00:00 2017-04-24 12:00:00 Appointmen t; JOSELO VARGAS M.D. HAN, SHAOJIE, M.D. [facility] [id number] [place] [facility] 2017-01-11 13:45:00 2017-01-11 13:45:00 Appointmen t; FOZIA SIDHU M.D. ZULFIQAR, AMBER, M.D. [facility] [id number] [place] [facility] 2017-01-02 14:00:00 2017-01-02 14:00:00 Appointmen t; JOSELO VARGAS M.D. HAN, SHAOJIE, M.D. [facility] [id number] [place] [facility] 2017-01-02 10:30:00 2017-01-02 10:30:00 Appointmen t; HIRAL ROBERSON P.A. CAMPOS, BERTHA, P.A. [facility] [id number] [place] [facility] 2016-10-03 11:00:00 2016-10-03 11:00:00 Appointmen t; FOZIA SIDHU M.D. ZULFIQAR, AMBER, M.D. [facility] [id number] [place] [facility] 2016-09-27 13:00:00 2016-09-27 13:00:00 Appointmen t; JOSELO VARGAS M.D. HAN, SHAOJIE, M.D. [facility] [id number] [place] [facility] 2016-09-20 11:00:00 2016-09-20 11:00:00 Appointmen t; FOZIA SIDHU M.D. ZULFIQAR, AMBER, M.D. [facility] [id number] [place] [facility] 2016-09-05 14:00:00 2016-09-05 14:00:00 Appointmen t; FOZIA SIDHU M.D. ZULFIQAR, AMBER, M.D. [facility] [id number] [place] [facility] 2016-07-28 10:45:00 2016-07-28 10:45:00 Appointmen t; FOZIA SIDHU M.D. ZULFIQAR, AMBER, M.D. [facility] [id number] [place] [facility] 2016-07-28 09:30:00 2016-07-28 09:30:00 Appointmen t; BLANCA SCHMIDT M.D. ESSEL, KATHLEEN, M.D. [facility] [id number] [place] [facility] 2016-06-28 10:00:00 2016-06-28 10:00:00 Appointmen t; RAGHAVENDRA JOHNSON M.D. VOWELS, PATRICIA, M.D. [facility] [id number] [place] [facility] 2016-06-16 14:30:00 2016-06-16 14:30:00 Appointmen t; ELIZABETH BALDWIN M.D. VON BERGEN, VERA, M.D. [facility] [id number] [place] [facility] 2016-01-13 15:00:00 2016-01-13 15:00:00 Appointmen t; Titus Smith M.D. Montalvo-Ch en, Rolf, M.D. [facility] [id number] [place] [facility] 2015-11-16 10:30:00 2015-11-16 10:30:00 Appointmen t; Titus Smith M.D. Montalvo-Ch en, Rolf M.D. [facility] [id number] [place] [facility] 2015-09-29 12:00:00 2015-09-29 12:00:00 Appointmen t; GABRIELLA BABIN M.D. SHACKELFORD, JAMES, M.D. [facility] [id number] [place] [facility] 2015-07-26 13:30:00 2015-07-26 13:30:00 Appointmen t; NASEEM NESBITT M.D. VELARDE, ROBERT, M.D. [facility] [id number] [place] [facility] Results Test Description Test Time Test Comments Results Result Comments Source MR Cervical spine wo contrast 2 19:54:08 MR CERVICAL SPINE WO CONTRAST HISTORY: 39 years old Female with cerebral palsy and bilateral upper limband lower limb weakness right arm. COMPARISON: None TECHNIQUE: Multiplanar and multisequence MRI imaging of the cervical spinewas obtained before and after the administration of intravenous contrast FINDINGS: There is straightening of the cervical lordosis. The vertebral bodies arenormal in height and in normal alignment. 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 The background marrow signal is unremarkable. Mild diffuse disc desiccationis noted. C2/C3: Posterior disc osteophyte complex with right more than leftuncovertebral and facet arthrosis resulting in mild right neural foraminanarrowing. No significant spinal canal stenosis or left neural foraminalnarrowing. C3/C4: Posterior disc osteophyte complex and central disc protrusion,bilateral uncovertebral and facet arthrosis resulting in moderate spinalcanal stenosis. Moderate left and moderate to severe right neural foraminalnarrowing. C4/C5: Posterior disc osteophyte complex, bilateral uncovertebral and facetarthrosis resulting in severe right and moderate left neural foraminalnarrowing. No significant spinal canal stenosis. C5/C6: Posterior disc osteophyte complex with central disc extrusionresulting in moderate spinal canal stenosis and ventral indentation of thespinal cord. Moderate left and moderate to severe right neuroforaminalnarrowin g. C6/C7: Disc osteophyte complex with left paracentral disc extrusion andbilateral uncovertebral arthrosis more on the left resulting in mild spinalcanal stenosis and left mild to moderate neural foraminal narrowing. Nosignificant right neural foraminal narrowing. C7/T1: No significant spinal canal stenosis or neural foraminal narrowing. The visualized brain and cervical soft tissues are unremarkable. [facility] Specific [id number] 19:51:00* Test Item Value Reference Range Interpretation Comme nts POCT U SP GRAV (test code = 3255) 1.000 mg/dl 1.005-1.025 A POCT PH U (test code = 3254) 8 mg/dl 5-8 POCT U LEUK EST (test code = 3263) ++ Negative - Negative POCT U NIT (test code = 3262) positive Negative - Negati ve POCT U PROT (test code = 3259) negative Negative - Negative POCT U GLU (test code = 3256) normal Negative - Negati ve POCT U KETONE (test code = 3258) small Negative - Negative POCT U UROBILI (test code = 3260) normal 0.2-1 POCT U BILI (test code = 3261) negative Negative - Negative POCT U BLD (test code = 3257) about 50 Negative - Negati ve POCT U COLOR (test code = 3266) yellow POCT U APPEAR (test code = 3267) clear Lab Interpretation (test cod e = 57029-6) [facility]normal [facility] [id number] 05:03:00* Test Item Value Reference Range Interpretation Comments HEMOGLOBIN A1c (test code = 4548-4) 5.3 See_Comment For the purpose of screening for the presence ofdiabetes: <5.7% ? ? ? Consistent with the absence of diabetes5.7-6.4% ? ?Consistent with increased risk for diabetes ?(prediabetes)> or =6.5% ?Consistent with diabetes This assay result is consistent with a decreased riskof diabetes. Currently, no consensus exists regarding use ofhemoglobin A1c for diagnosis of diabetes in children. According to [place] [employer] Association (ADA)guidelines, hemoglobin A1c <7.0% represents optimalcontrol in non- diabetic patients. Differentmetrics may apply to specific patient populations. Standards of Medical Care in Diabetes(ADA). ? This test was performed on the Fanta angel c503 platform.Effective 02/05/23, a change in test platforms from theGlassBox to the Fanta angel c503 may have wijfkdxIvC1f results compared to historical results.Based [facility], the Fanta platform relative to the Simple Lifeformsform had an average increase in HbA1c value of< or = 0.3%. This difference is within accepted variability established by the National GlycohemoglobinStandardization Program. Note that not all individualswill have had a shift in their results and directcomparisons between historical and current results fortesting conducted on different platforms is notrecommended. ? REPORT COMMENT:FASTING:YES [Automated message] The system which generated this result transmitted reference range: <5.7 % of total Hgb. The reference range was not used to interpret this result as normal/abnormal. RAC (test code = RAC) Performing Organization Information: ? ?Site ID: RGA ? ?Name: [employer] [place] ? ?Address: [address] [place] [address] ? ?Director: AMISH WILLIAMSON MD,PHD . [facility] and hmzwcgvhjxsz5618-30-59 04:17:00* Test Item Value Reference Range Interpretation Comme nts WHITE BLOOD CELL COUNT (test code = 6690-2) 2.6 3.8-10.8 L RED BLOOD CELL COUNT (test code = 789-8) 4.47 3.80-5.10 HEMOGLOBIN (test code = 718-7) 12.8 g/dL 11.7-15.5 HEMATOCRIT (test code = 4544-3) 39.0 % 35.0-45.0 MCV (test code = 787-2) 87.2 fL 80.0-100.0 MCH (test code = 785-6) 28.6 pg 27.0-33.0 MCHC (test code = 786-4) 32.8 g/dL 32.0-36.0 RDW (test code = 788-0) 13.2 % 11.0-15.0 PLATELET COUNT (test code = 777-3) 216 140-400 MPV (test code = 776-5) 11.1 fL 7.5-12.5 ABSOLUTE NEUTROPHILS (test code = 751-8) 1349 [id number] L ABSOLUTE LYMPHOCYTES (test code = 731-0) 906 551-0777 ABSOLUTE MONOCYTES (test code = 742-7) 179 200-950 L ABSOLUTE EOSINOPHILS (test code = 711-2) 39 15-500 ABSOLUTE BASOPHILS (test code = 704-7) 39 0-200 NEUTROPHILS (test code = 770-8) 51.9 % LYMPHOCYTES (test code = 736-9) 38.2 % MONOCYTES (test code = 5905-5) 6.9 % EOSINOPHILS (test code = 713-8) 1.5 % BASOPHILS (test code = 706-2) 1.5 % REPORT COMMENT:FASTIN G:YES RAC (test code = RAC) Performing Organization Information: ? ?Site ID: RGA ? ?Name: [employer] [place] ? ?Address: [address] [place] [id number] ? ?Director: AMISH WILLIAMSON MD,PHD. Lab Interpretation (test code = 50384-6) Abnormal [facility] metabolic [id number] 03:19:00* Test Item Value Reference Range Interpretation Comme nts GLUCOSE (test code = 2345-7) 83 mg/dL 65-99 ? Fastin g reference interval UREA NITROGEN (BUN) (test code = 3094-0) 8 mg/dL 7-25 CREATININE (test code = 2160-0) 0.61 mg/dL 0.50-0.99 EGFR (test code = 418914718) 116 See_Comment [Automated message] The system which generated this result transmitted reference range: > OR = 60 mL/min/1.73m2. The reference range was not used to interpret this result as normal/abnormal. BUN/CREATININE RATIO (test code = 3097-3) SEE NOTE: 09-14 ? Not Reported: BUN and Creatinine are within ? reference range. ? ? SODIUM (test code = 2951-2) 143 mmol/L 135-146 POTASSIUM (test code = 2823-3) 4.2 mmol/L 3.5-5.3 CHLORIDE (test code = 2075-0) 104 mmol/L 98-110 CARBON DIOXIDE (test code = 2027-9) 32 mmol/L 20-32 CALCIUM (test code = 34193-2) 9.6 mg/dL 8.6-10.2 PROTEIN, TOTAL (test code = 2885-2) 7.2 g/dL 6.1-8.1 ALBUMIN (test code = 1751-7) 4.5 g/dL 3.6-5.1 GLOBULIN (test code = 74123-1) 2.7 1.9-3.7 ALBUMIN/GLOBULIN RATIO (test code = 1759-0) 1.7 1.0-2.5 BILIRUBIN, TOTAL (test code = 1975-2) 0.7 mg/dL 0.2-1.2 ALKALINE PHOSPHATASE (test code = 6768-6) 54 U/L 31-125 AST (test code = 1920-8) 18 U/L 10-30 ALT (test code = 1742-6) 12 U/L 6-29 RAC (test code = RAC) Performing Organization Information: ? ?Site ID: RGA ? ?Name: [employer] [place] ? ?Address: [address] [place] [address] ? ?Director: AMISH WILLIAMSON MD,PHD. [place] HealthTHYROID PANEL WITH [id number] 03:19:00* Test Item Value Reference Range Interpretation Comme nts T3 UPTAKE (test code = 3050-2) 35 % 22-35 T4 (THYROXINE), TOTAL (test code = 3026-2) 5.8 5.1-11.9 FREE T4 INDEX (T7) (test code = 12890-0) 2.0 1.4-3.8 TSH (test code = 3016-3) 1.38 mIU/L ?Referen ce Range ?> or = 20 Years ?0.40-4.50 ? Ranges ?First trimester ? ?0.26-2.66 ?Second trimester ? 0.55-2.73 ?Third trimester ? ?0.43-2.91 REPORT COMMENT:FASTING:YE S RAC (test code = RAC) Performing Organization Information: ? ?Site ID: RGA ? ?Name: [employer] [place] ? ?Address: [address] [place] [address] ? ?Director: AMISH WILLIAMSON MD,PHD. [place] RgqzscZphthrwmea2260-23-28 03:19:00* Test Item Value Reference Range Interpretation Comme nts PHOSPHATE ( PHOSPHORUS) (test code = 2777-1) 4.2 mg/dL 2.5-4.5 RAC (test code = RAC) Performing Organiz ation Information: ? ?Site ID: RGA ? ?Name: [employer] [place] ? ?Address: [address] [place] [address] ? ?Director: AMISH WILLIAMSON MD,PHD. [facility] LakewayEbcvigJzcaltlvf3237-23-05 03:19:00* Test Item Value Reference Range Interpretation Comme nts MAGNESIUM (test code = 67287-4) 2.0 mg/dL 1.5-2.5 RAC (test code = RAC) Performing Organiz ation Information: ? ?Site ID: RGA ? ?Name: [employer] [place] ? ?Address: [address] [place] [address] ? ?Director: AMISH WILLIAMSON MD,PHD. [facility] 12 lowv3562-68-12 19:37:25[place] 55, [place] 220, QRS 105, Qtc 400.[facility] POCT MOLECULAR [id number] 16:49:50* Test Item Value Reference Range Interpretation Comme nts POCT Molecular FluA (test co de = 97712-0) Negative Negative POCT Molecular FluB (test co de = 25453-2) Negative Negative Lab Interpretation (test cod e = 76236-2) Normal [facility] MOLECULAR [id number] 16:43:58* Test Item Value Reference Range Interpretation Comme nts POCT Molecular Strep (test c ode = 83454-9) Negative Negative Lab Interpretation (test cod e = 71161-1) Normal [facility] SARS-COV-2 ANTIGEN (BINAX NOW)2022-11-26 16:20:00* Test Item Value Reference Range Interpretation Comme nts POCT SARS-COV-2 ANTIGEN (nakia t code = 62589-4) Not Detected Not Detected On board controls acceptable with C Line (test code = 3574) Yes Lab Interpretation (test cod e = 82692-2) Normal [facility] 2 [id number] 09:04:00 [facility] 1985 Sex: F [facility] [address] [address] Patient Name: JENN HORAN MR #: [id number] : 1985 Age/Sex: 36/F Req #: [id number] Adm Physician: DAVID SANCHEZ MD Ordered by: CHERI SAHU RECORDS SECTION SUPERVISOR Report #: [id number] Location: MED/SURG2 Room/Bed: [facility] Procedure: [id number] DX/CHEST 2 VIEWS Exam Date: 08/31/21 Exam [...] Transcribed By: KELLY on 08/31/21903 COPY TO: CHREI SAHU NPSerum or plasma urea nitrogen measurement (mass/volume)2021-08-31 06:16:00* Test Item Value Reference Range Interpretation Comme [facility] Blood Urea Nitrogen (test co de = 3094-0) 9 -26 [facility] creatinine measurement (mass/volume)2021-08-31 06:16:00* Test Item Value Reference Range Interpretation Comme [facility] Creatinine (test code = 2160-0) 0.66 0.57-1.11 [facility] plasma urea nitrogen/creatinine mass lrylp6826-32-17 06:16:00* Test Item Value Reference Range Interpretation Comme [facility] BUN/Creatinine Ratio (test c ode = 3097-3) 14 09-[address] [facility] HospitalEstimated glomerular filtration rate (GFR) fttcphhvexwtz6078-57-69 06:16:00* Test Item Value Reference Range Interpretation Comme [facility] Estimat Glomerular Filtration Rate (test code = 045297398) 100 See_Comment [Automated mes darcie] The system which generated this result transmitted reference range: 60-. The reference range was not used to interpret this result as normal/abnormal. [facility] HospitalGlucose rwujaycjybm1781-63-13 06:16:00* Test Item Value Reference Range Interpretation Comme [facility] Glucose Level (test code = YFR5208) 78 74-118 [facility] or plasma calcium measurement (mass/volume)2021-08-31 06:16:00* Test Item Value Reference Range Interpretation Comme [facility] Calcium Level (test code = 44732-4) 7.9 8.4-10.[address] [facility] HospitalBlood leukocytes automated count (number/volume)2021-08-31 06:16:00* Test Item Value Reference Range Interpretation Comme [facility] White Blood Count (test code = 6690-2) 3.81 4.8-10.[address] [facility] HospitalBlood erythrocytes automated count (number/volume)2021-08-31 06:16:00* Test Item Value Reference Range Interpretation Comme [facility] Red Blood Count (test code = 789-8) 4.45 3.6-5.[address] [facility] HospitalBlood hemoglobin measurement (moles/volume) 2021-08-31 06:16:00* Test Item Value Reference Range Interpretation Comme [facility] Hemoglobin (test code = 86068-5) 12.7 12.0-16.[address] [facility] [facility] HospitalAutomated blood hematocrit (volume fraction) 2021-08-31 06:16:00* Test Item Value Reference Range Interpretation Comme [facility] Hematocrit (test code = 4544-3) 41.2 34.2-44.[address] [facility] HospitalAutomated erythrocyte mean corpuscular volume 2021-08-31 06:16:00* Test Item Value Reference Range Interpretation Comme [facility] Mean Corpuscular Volume (nakia t code = 787-2) 92.6 81-[address] [facility] [facility] HospitalAutomated erythrocyte mean corpuscular hemoglobin (mass per erythrocyte)2021-08-31 06:16:00* Test Item Value Reference Range Interpretation Comme [facility] Mean Corpuscular Hemoglobin (test code = 785-6) 28.5 28-[address] [facility] [facility] HospitalAutomated erythrocyte mean corpuscular hemoglobin concentration measurement (mass/volume)2021-08-31 06:16:00* Test Item Value Reference Range Interpretation Comme [facility] Mean Corpuscular Hemoglobin Concent (test code = 786-4) 30.8 31-[address] [facility] HospitalRDW EnbCv-Wss5535-62-08 06:16:00* Test Item Value Reference Range Interpretation Comme [facility] Red Cell Distribution Width (test code = 50219-5) 14.3 11.7-14.[address] [facility] [facility] HospitalAutomated blood platelet count (count/volume) 2021-08-31 06:16:00* Test Item Value Reference Range Interpretation Comme [facility] Platelet Count (test code = 777-3) 182 140-[address] HospitalAutomated blood segmented neutrophil count as percentage of total fhjifxrkhd6172-47-51 06:16:00* Test Item Value Reference Range Interpretation Comme [facility] Neutrophils (%) (Auto) (test code = 05200-1) 46.2 38.7-80.[address] [facility] lymphocyte count as percentage ot total veffoxuwfj9599-92-67 06:16:00* Test Item Value Reference Range Interpretation Comme nts Lymphocytes (%) (Auto) (test code = 736-9) 41.7 18.0-39.[address] [facility] HospitalAutomated blood monocyte count as percentage of total qhobkusoxn2207-62-30 06:16:00* Test Item Value Reference Range Interpretation Comme nts Monocytes (%) (Auto) (test c ode = 5905-5) 9.2 4.4-11.[address]Autom[facility] blood eosinophil count as percentage of total [id number] 06:16:00* Test Item Value Reference Range Interpretation Comme nts Eosinophils (%) (Auto) (test code = 713-8) 1.6 0.0-6.[address] [facility]Aut[facility] systemed blood basophil count as percentage of total [id number] 06:16:00* Test Item Value Reference Range Interpretation Comme nts Basophils (%) (Auto) (test c ode = 706-2) 0.3 0.0-1.[address] [facility] HospitalFluoroscopic procedure less than one hour [id number] 06:16:00* Test Item Value Reference Range Interpretation Comme nts IM GRANULOCYTES % (test code = IM GRANULOCYTES %) 1.0 0.0-1.[address] [facility] HospitalAutomated blood neutrophil [id number] 06:16:00* Test Item Value Reference Range Interpretation Comme nts Neutrophils # (Auto) (test c ode = 751-8) 1.8 2.1-6.[address] HospitalBlood lymphocytes count (number/volume) 2021-08-31 06:16:00* Test Item Value Reference Range Interpretation Comme nts Lymphocytes # (Auto) (test c ode = 63003-8) 1.6 1.0-3.[address] HospitalBlood monocytes automated count (number/volume)2021-08-31 06:16:00* Test Item Value Reference Range Interpretation Comme nts Monocytes # (Auto) (test code = 742-7) 0.4 0.2-0.[address] [facility] HospitalAutomated blood eosinophil [id number] 06:16:00* Test Item Value Reference Range Interpretation Comme nts Eosinophils # (Auto) (test c ode = 711-2) 0.1 0.0-0.[address] [facility] HospitalAutomated blood basophil count (count/volume) 2021-08-31 06:16:00* Test Item Value Reference Range Interpretation Comme nts Basophils # (Auto) (test code = 704-7) 0.0 0.0-0.1 [facility] sodium measurement (moles/volume)2021-08-31 06:16:00* Test Item Value Reference Range Interpretation Comme nts Sodium Level (test code = 2951-2) 143 136-145 [facility] potassium measurement (moles/volume)2021-08-31 06:16:00* Test Item Value Reference Range Interpretation Comme nts Potassium Level (test code = 2823-3) 4.1 3.5-5.1 [facility] chloride measurement (moles/volume)2021-08-31 06:16:00* Test Item Value Reference Range Interpretation Comme nts Chloride Level (test code = 2075-0) 107 98-107 [facility] carbon dioxide, total measurement (moles/volume)2021-08-31 06:16:00* Test Item Value Reference Range Interpretation Comme nts Carbon Dioxide Level (test c ode = 8-9) 27 22-29 [facility] anion [id number] 06:16:00 * Test Item Value Reference Range Interpretation Comme nts Anion Gap (test code = 94805-0) 13.1 8-[address] [facility] [address] HospitalFluoroscopic procedure less than one hour [id number] 06:23:00* Test Item Value Reference Range Interpretation Comme nts Hemoglobin A1c Percent (test code = Hemoglobin A1c Percent) 5.0 4.0-7.[address] [address] HospitalPhosphorus [id number] 06:23:00* Test Item Value Reference Range Interpretation Comme nts Phosphorus Level (test code = KVW7669) 3.7 2.3-4.7 [facility] magnesium measurement (mass/volume)2021-08-30 06:23:00* Test Item Value Reference Range Interpretation Comme [facility] Magnesium Level (test code = 80097-9) 1.9 1.3-2.1 [facility] total bilirubin measurement (mass/volume)2021-08-30 06:23:00* Test Item Value Reference Range Interpretation Comme [facility] Total Bilirubin (test code = 1975-2) 0.5 0.2-1.2 [facility] alanine aminotransferase measurement (enzymatic activity/volume)2021-08-30 06:23:00* Test Item Value Reference Range Interpretation Comme [facility] Alanine Aminotransferase (AL T/SGPT) (test code = 1742-6) 26 0-55 [facility] protein measurement (mass/volume)2021-08-30 06:23:00* Test Item Value Reference Range Interpretation Comme [facility] Total Protein (test code = 2885-2) 6.3 6.5-8.1 [facility] albumin measurement (mass/volume)2021-08-30 06:23:00* Test Item Value Reference Range Interpretation Comme [facility] Albumin (test code = 1751-7) 3.6 3.5-5.[address] HospitalPlasma globulin measurement (mass/volume) 2021-08-30 06:23:00* Test Item Value Reference Range Interpretation Comme [facility] Globulin (test code = 89532-2) 2.7 2.3-3.5 [facility] albumin/globulin mass ratio 2021-08-30 06:23:00* Test Item Value Reference Range Interpretation Comme [facility] Albumin/Globulin Ratio (test code = 1759-0) 1.3 0.8-2.0 [facility] alkaline phosphatase measurement (enzymatic activity/volume)2021-08-30 06:23:00* Test Item Value Reference Range Interpretation Comme [facility] Alkaline Phosphatase (test c ode = 6768-6) 46 40-150 [facility] triglyceride measurement (mass/volume)2021-08-30 06:23:00* Test Item Value Reference Range Interpretation Comme [facility] Triglycerides Level (test co de = 2571-8) 157 0-149 [facility] cholesterol measurement (mass/volume)2021-08-30 06:23:00* Test Item Value Reference Range Interpretation Comme nts Cholesterol Level (test code = 2093-3) 171 0-199 [facility] cholesterol in LDL measurement (mass/volume)2021-08-30 06:23:00* Test Item Value Reference Range Interpretation Comme nts LDL Cholesterol (test code = 2089-1) 105 60-130 [facility] cholesterol in HDL measurement (mass/volume)2021-08-30 06:23:00* Test Item Value Reference Range Interpretation Comme [facility] HDL Cholesterol (test code = 2085-9) 35 40-60 [facility] or plasma total cholesterol/cholesterol in HDL mass [id number] 06:23:00* Test Item Value Reference Range Interpretation Comme [facility] Cholesterol/HDL Ratio (test code = 9830-1) 4.9 3.0-3.6 [facility] plasma thyrotropin measurement by detection limit <= 0.005 miu/l (units/volume)2021-08-30 06:23:00* Test Item Value Reference Range Interpretation Comme [facility] Thyroid Stimulating Hormone (TSH) (test code = 50074-3) 1.325 0.350-4.[address] [facility] HospitalCHEST SINGLE (PORTABLE)2021-08-29 11:04:00 [facility] : 1985 Sex: F [facility] [address] [address] Patient Name: JENN HORAN MR #: [id number] : 1985 Age/Sex: 36/F Req #: [id number] Adm Physician: DAVID SANCHEZ MD Ordered by: CHRISTINE YANEZ MD Report #: [id number] Location: MED/SURG2 Room/Bed: [facility] Procedure: [id number] DX/CHEST SINGLE (PORTABLE) Exam Date: 08/29/21 Exam Time: 945 REPORT STATUS: Signed Exam: CHEST SINGLE (PORTABLE) Date: 08/29/2021 11:03 AM Indication: Congestion Comparison: CXR of the prior day FINDINGS: Lines/Tubes:None Lungs:The lungs are well inflated. There is perihilar fullness and indistinctness of the pulmonary vasculature. No focal co nsolidation or airspace edema. Pleura:No pleural effusion. No pneumothorax. Heart/Mediastinum:The cardiomediastinal silhouette is unchanged in size and contour. Bones/Soft Tissues: No acute osseous injury. Abdomen: No free air below the diaphragm. IMPRESSION: Unchanged mild central pulmonary vascular congestion. No airspace edema or pneumonia. Signed by: eFrnando Tapia on 08/29/2021 11:04 AM Dictated By: FERNANDO TAPIA MD Transcribed By: GILSONRIAMBROCIO on 08/29/219 COPY TO: CHRISTINE YANEZ MDTroponin I measurement by highly sensitive enzyme [id number] 15:33:00* Test Item Value Reference Range Interpretation Comme nts Troponin I (test code = 24759-5) 0.100 0-0.[address] [address]CHE[facility]INGLE (PORTABLE)2021-08-27 13:11:00 [facility] 1985 Sex: F [facility] [address] [address] Patient Name: JENN HORAN MR #: [id number] : 1985 Age/Sex: 36/F Req #: [id number] [facility] Physician: DAVID SANCHEZ MD Ordered by: CHRISTINE YANEZ MD Report #: [id number] Location: MED/SURG Room/Bed: [facility] Procedure: [id number] DX/CHEST SINGLE (PORTABLE) Exam Date: 08/27/21Exam Time: 1155 REPORT STATUS: Signed Chest dated 08/27/2021 Clinical Information: Cough Comment: Heart is enlarged. Pulmonary vasculature is indistinct. Interstitial disease is seen bilaterally suggestive of vascular congestion. No pleural effusion or pneumothorax is seen. Impression: Cardiomegaly with vascular congestion. Signed by: Gabriella Dee on 08/27/2021 1:11 PM Dictated By: GABRIELLA DEE MD 1314 Transcribed By: KELLY on 08/27/21 1311 COPY TO: CHRISTINE YANEZ MD COMPREHENSIVE METABOLIC [id number] 20:48:00* Test Item Value Reference Range Interpretation Comme nts SODIUM (test code = NA) 133 MMOL/L 133-145 N POTASSIUM (test code = K) 4.0 MMOL/L 3.6-5.2 N CHLORIDE (test code = CL) 104 MMOL/L 100-108 N CARBON DIOXIDE (test code = CO2) 30 MMOL/L 22-32 N GLUCOSE (test code = GLU) 107 MG/DL 65-99 H Results of this assay method may be falsely depressed orelevated if patient is taking sulfasalazine. BLOOD UREA NITROGEN (test code = BUN) 9 MG/DL 6-20 N GLOMERULAR FILTRATION RATE (test code = GFR) 80 64-149 N Reporting units: mL/min/1.73m\\S\\2 (Modified MDRD Formula) CREATININE (test code = CREAT) 0.80 MG/DL 0.60-1.00 N TOTAL PROTEIN (test code = PROT) 6.7 G/DL 6.4-8.2 N ALBUMIN (test code = ALB) 3.8 G/DL 3.4-5.0 N CALCIUM (test code = CA) 8.3 MG/DL 8.7-10.5 L BILIRUBIN TOTAL (test code = BILT) 0.6 MG/DL 0.0-1.0 N SGOT/AST (test code = AST) 33 Units/L 15-37 N Results of this assay method may be falsely depressed orelevated if patient is taking sulfasalazine. SGPT/ALT (test code = ALT) 26 Units/L 30-65 L Results of this assay method may be falsely depressed orelevated if patient is taking sulfasalazine. ALKALINE PHOSPHATASE TOTAL (test code = ALKP) 65 Units/L 50-136 N Coronavirus 2019 nCoV [id number] 20:47:00* Test Item Value Reference Range Interpretation Comme nts Coronavirus 2019 nCoV Bedside (test code = [id number]) Positive Negative A ID NOW COVID-19 assay performed on the ID NOW Instrument lala rapid molecular in vitro diagnostic test utilizing anisothermal nucleic acid amplification technology intendedfor the qualitative detection of nucleic acid from btrLFQZ-PtU-8 viral RNA in direct nasal, nasopharyngeal orthroat swabs and nasal, nasopharyngeal or throat swabseluted in viral transport media from individuals who aresuspected of COVID-19 by their healthcare provider. Negative results should be treated as presumptive and, ifinconsistent with clinical signs and symptoms or necessaryfor patient management, should be tested with differentauthorized or cleared molecular tests. Negative results donot preclude SARS-CoV-2 infection and should not be used asthe sole basis for patient management decisions. Negativeresults should be considered in the context of a patient'srecent exposures, history and presence of clinical signs andsymptoms consistent with COVID-19.Results are for the identification of SARS-CoV-2 RNA.For Use Under an Emergency Use Authorization (EUA) Only Negative results do not preclude SARS-CoV-2 infection andshould not be used as the sole basis for patient managementdecisions. Negative results must be combined with clinicalobservations, patient history, and epidemiologicalinformation . CBC W/AUTO [id number] 20:40:00* Test Item Value Reference Range Interpretation Comme nts WHITE BLOOD CELL (test code = WBC) 2.00 x10 3/uL 4.80-10.80 L RED BLOOD CELL (test code = RBC) 4.31 x10 6/uL 4.2-5.4 N HEMOGLOBIN (test code = HGB) 12.2 G/DL 12.0-16.0 N HEMATOCRIT (test code = HCT) 38.6 % 37-47 N MEAN CELL VOLUME (test code = MCV) 89.6 FL 81-99 N MEAN CELL HGB (test code = MCH) 28.3 PG 27-31 N MEAN CELL HGB CONCENTRATION (test code = MCHC) 31.6 G/DL 33-37 L RED CELL DISTRIBUTION WIDTH (test code = RDW) 13.5 % 11.5-14.5 N PLATELET COUNT (test code = PLT) 138 x10 3/uL 150-450 L MEAN PLATELET VOLUME (test c ode = MPV) 9.4 FL 7.4-10.4 N NEUTROPHIL % (test code = NT%) 67.9 [...] x10 3/uL 0.0-0.2 - XR CHEST 1 [id number] 20:28:00 [facility] 1985 Sex: FPatient Name: JENN HORAN Unit No: [id number] EXAMS: CPT CODE: [id number] XR CHEST 1 V 44060 Reason: cough EXAM: - XR CHEST 1 [...] Clarissa Montesinos DO Technologist: DANIELE Cordova Trscrpt Dt/ (2027)[id number] Orig Print D/T: S: 08/24/2021 (2030) [place] FSED NAME:JENN HORAN [address] PHYS: [place] [id number] : 1985 AGE: 36 SEX: F LOC: RaviRER PHONE #: EXAM DATE: 08/24/2021 STATUS: PRE ER FAX #: RAD NO: DC Dt: PAGE 1 Signed Report[QL] MICROALBUMIN, RANDOM URINE (W/CREATININE) 2019-10-23 11:31:00* Test Item Value Reference Range Interpretation Comme nts CREATININE, RANDOM URINE (test code = CREATININE, RANDOM URINE) 29 mg/dl 20-275 N MICROALBUMIN (test code = MICROALBUMIN) 0.3 mg/dl N Reference RangeN ot established MICROALBUMIN/CREATI NINE RATIO, RANDOM URINE (test code = MICROALBUMIN/CREATI NINE RATIO, RANDOM URINE) 10 {MCG/MG CRE} <30 N The ADA defines abnormalities in albuminexcretion as follows: Category Result (mcg/mg creatinine) Normal <30Microalbuminuria 30-299 Clinical albuminuria > OR = 300 The ADA recommends that at least two of threespecimens collected within a 3-6 month period beabnormal before considering a patient to bewithin a diagnostic category. [facility][QL] LIPID [id number] 13:21:00* Test Item Value Reference Range Interpretation Comme nts CHOLESTEROL, TOTAL; Normal (test code = 2093-3) 155 mg/dl <200 N HDL CHOLESTEROL; Below Low Threshold (test code = 2085-9) 44 mg/dl > OR = 50 TRIGLYCERIDES; Normal (test code = 2571-8) 64 mg/dl <150 N LDL-CHOLESTEROL; Normal (test code = 90399-3) 96 {MG/DL JAX} N Reference range: <100 Desirable range <100 mg/dL for primary prevention; <70 mg/dL for patients with CHD or diabetic patients with > or = 2 CHD risk factors. LDL-C is now calculated using the Jacque calculation, which is a validated novel method providing better accuracy than the Friedewald equation in the estimation of LDL-C. Abran SS et al. LEONARDO. 2013;310(19): 0384-3148 (http://education.25eight.nodila/f aq/KNS734) CHOL/HDLC RATIO (test code = CHOL/HDLC RATIO) 3.5 {CALC} <5.0 N NON HDL CHOLESTEROL (test code = NON HDL CHOLESTEROL) 111 {MG/DL JAX} <130 N For patients with diabetes plus 1 major ASCVD risk factor, treating to a non-HDL-C goal of <100 mg/dL (LDL-C of <70 mg/dL) is considered a therapeutic option. [facility][QL] HEPATITIS C [id number] 13:21:00* Test Item Value Reference Range Interpretation Comme nts HEPATITIS C ANTIBODY; Normal (test code = 00072-9) NON-REACTIVE NON-REACTIVE N SIGNAL TO CUT-OFF (test code = SIGNAL TO CUT-OFF) 0.02 <1.00 N HCV antibody was non-reactive. There is no laboratory evidence of HCV infection. In most cases, no further action is required. However,if recent HCV exposure is suspected, a test for HCV RNA(test code 93047) is suggested. For additional information please refer [email or web address] [email or web address] [email or web address](This link is being provided for informational/educati onal purposes only.) [facility][QL] HEMOGLOBIN [id number] 13:21:00* Test Item Value Reference Range Interpretation Comme nts HEMOGLOBIN A1c; Normal (test code = 4548-4) 4.7 {% of total} <5.7 N For the purpose of screening for the presence ofdiabetes: <5.7% Consistent with the absence of diabetes5.7-6.4% Consistent with increased risk for diabetes (prediabetes)> or =6.5% Consistent with diabetes This assay result is consistent with a decreased riskof diabetes. Currently, no consensus exists regarding use ofhemoglobin A1c for diagnosis of diabetes in children. According to [place] [employer] (ADA)guidelines, hemoglobin A1c <7.0% represents optimalcontrol in non- diabetic patients. Differentmetrics may apply to specific patient populations. Standards of Medical Care in Diabetes(ADA). [facility]] URINALYSIS, [id number] 16:20:01* Test Item Value Reference Range Interpretation Comme nts UA Turbidity (test code = 66562-1) Clear Clear UA Spec Grav (test code = 5810-7) 1.012 <=1.030 UA pH (test code = 5803-2) 7.0 5.0-8.0 UA Protein (test code = 06346-5) Negative Negative UA Glucose (test code = 31533-6) Negative Negative UA Ketones (test code = 60940-3) Negative Negative UA Bili (test code = 5770-3) Negative Negative UA Blood (test code = 5794-3) Negative Negative UA Nitrite (test code = 5802-4) Negative Negative UA Leuk Est (test code = 5799-2) Negative Negative UA RBC (test code = 27318-6) 1 {/HPF} 0-2 UA WBC (test code = 73583-5) <1 0-5 UA Bacteria (test code = 94838-2) Occasional None Seen UA Mucus (test code = 8247-9) Few None Seen UA Sq Epi (test code = 44044-4) Occasional Few UA Color (test code = 5778-6) Ltyellow UROBILINOGEN (test code = 11851-9) <=1.0 0.1-1.0 [facility]] CULTURE, URINE, [id number] 16:20:01* Test Item Value Reference Range Interpretation Comme [facility] FINAL REPORT (test code = FI NAL REPORT) No Growth [facility]. [facility] - [id number] 00:00:00* Test Item Value Reference Range Interpretation Comme nts Case (test code = Case) Click ImageLink button for report. N Specimen 1 (test code = Specimen 1) Click ImageLink button for report. N [facility] Pel[facility] with Pelvis Transvaginal [id number] 12:40:00 PROCEDURE INFORMATION:Exam: US Pelvis Complete, Transabdominal and US Pelvis, TransvaginalExam dateand time: 04/29/2019 12:52 PMAge: 34 years oldClinical indication: Irregular menstruation, unspecified; Additional info:N92.6/irregular mensesTECHNIQUE:Imaging protocol: Real-time transabdominal and transvaginal pelvic ultrasound(complete) with image documentation. Transvaginal imaging was used for betterevaluation of the endometrium and adnexa.COMPARISON:PELVIS W PELVIS TRANSVAGINAL US 07/12/2016 4:20 PMFINDINGS:The retroverted uterus measures 8.3 x 4.5 x 7.1 cm in size. There are nabothiancysts.There is normal parenchymal echotexture.The endometrial stripe measures 11 mm in thickness.Right ovary measures 3.5 x 2.2 x 2.5 cm.Status post left oophorectomy.There is normal bilateral ovarian blood flow on doppler evaluation. There is a right ovarian cyst measuring 2.2 x 1.8 x 1.8 cm.There is nofree fluid in the cul-de-sac.If there is further concern, followup pelvic sonography or MRI of the pelvismay be performed.IMPRESSION:Heterogeneous uterine parenchyma.Right ovarian cyst.Manolo Mckeon MD On 04/29/2019 15:51:15; [id number]--Naxr by: Manolo Mckeon MDDictated Date/time: 04/29/19 15:51Electronically Signed by: Manolo Mckeon MD 04/29/2014:51FINAL REPORTUT [facility]] CULTURE, URINE, ROUTINE 2019-01-03 03:00:00* Test Item Value Reference Range Interpretation Comme nts CULTURE (test code = CULTURE) See Comment CULTURE, URINE, ROUTINE MICRO NUMBER: [id number] TEST STATUS: FINAL SPECIMEN SOURCE: URINE SPECIMEN QUALITY: ADEQUATE RESULT: No GrowthNO COLLECTION DATE RECEIVED. WE HAVE USEDTHE DATE THE SPECIMEN WAS RECEIVED BY [facility] THE COLLECTION DATE. IF THISIS INCORRECT, PLEASE CONTACT CLIENT SERVICES.PHONE NUMBER: [phone] [facility][O] Urine Dipstick (In Office)2018-12-31 00:00:00* Test Item Value Reference Range Interpretation Comme nts Glucose (test code = Glucose) negative N LEUKOCYTES (test code = LEUKOCYTES) negative N NITRITE; Normal (test code = 31783-5) negative N UROBILINOGEN; Normal (test c ode = 11747-3) 0.2 N PROTEIN; Normal (test code = 98872-9) negative N pH (test code = pH) 5.5 N URINE BLOOD; Normal (test co de = 12835-0) trace N SPECIFIC GRAVITY; Normal (te st code = 2965-2) 1.030 N KETONES; Normal (test code = 23460-0) negative N BILIRUBIN; Normal (test code = 07529-8) negative N [facility]] URINALYSIS, [id number] 08:48:00* Test Item Value Reference Range Interpretation Comme nts COLOR; Normal (test code = 5778-6) YELLOW YELLOW N APPEARANCE (test code = APPEARANCE) CLEAR CLEAR N SPECIFIC GRAVITY; Normal (te st code = 2965-2) 1.015 1.001-1.035 N PH; Normal (test code = 2756-5) 8.0 5.0-8.0 N GLUCOSE; Normal (test code = 1547-9) NEGATIVE NEGATIVE N BILIRUBIN; Normal (test code = 67098-2) NEGATIVE NEGATIVE N KETONES; Normal (test code = 74745-2) NEGATIVE NEGATIVE N OCCULT BLOOD; Abnormal (test code = 03297-9) 3+ NEGATIVE A PROTEIN; Abnormal (test code = 82535-0) 1+ NEGATIVE A NITRITE; Normal (test code = 32505-0) NEGATIVE NEGATIVE N LEUKOCYTE ESTERASE (test cod e = LEUKOCYTE ESTERASE) NEGATIVE NEGATIVE N WBC; Normal (test code = 6690-2) 0-5 < OR = 5 N RBC; Abnormal (test code = 789-8) 3-10 < OR = 2 A SQUAMOUS EPITHELIAL CELLS (t est code = 18890-7) 0-5 < OR = 5 BACTERIA; Abnormal (test cod e = 630-4) FEW NONE SEEN A HYALINE CAST; Normal (test c ode = 95808-6) NONE SEEN NONE SEEN N [facility]] CULTURE, URINE, [id number] 08:48:00* Test Item Value Reference Range Interpretation Comme nts CULTURE (test code = CULTURE) See Comment A CULTURE, URINE, ROUTINE MICRO NUMBER: [id number] TEST STATUS: FINAL SPECIMEN SOURCE: URINE SPECIMEN QUALITY: ADEQUATE RESULT: Greater than 100,000 CFU/mL of Proteus mirabilis This organism may show imipenem resistance by mechanisms other than a carbapenemase. P.mirabilis INT RIDDHI AMOX/CLAVULANATE S 4 AMPICILLIN R >=32 AMP/SULBACTAM S 4 CEFAZOLIN NR <=4 2 CEFEPIME S <=1 CEFTRIAXONE S <=1 CIPROFLOXACIN R >=4 GENTAMICIN S <=1 IMIPENEM I 2 LEVOFLOXACIN R >=8 NITROFURANTOIN R 64 PIP/TAZOBACTAM S <=4 TOBRAMYCIN S <=1 TRIMETHOPRIM/SULFA S 40S=Susceptible I=Intermediate R=Resistant * = Not TestedNR = Not Reported NN = See Therapy CommentsTHERAPY COMMENTS Note 1: For infections other than uncomplicated UTI caused by E. coli, K. pneumoniae or P. mirabilis: Cefazolin is resistant if RIDDHI > or = 8 mcg/mL. (Distinguishing susceptible versus intermediate for isolates with RIDDHI < or = 4 mcg/mL requires additional testing.) Note 2: For uncomplicated UTI caused by E. coli, K. pneumoniae or P. mirabilis: Cefazolin is susceptible if RIDDHI <32 mcg/mL and predicts susceptible to the oral agents cefaclor, cefdinir, cefpodoxime, cefprozil, cefuroxime, cephalexin and loracarbef. [facility]] LIPID [id number] 11:26:00* Test Item Value Reference Range Interpretation Comme nts CHOLESTEROL, TOTAL; Normal (test code = 2093-3) 187 mg/dl <200 N HDL CHOLESTEROL; Normal (test code = 2085-9) 53 mg/dl >50 N TRIGLYCERIDES; Normal (test code = 2571-8) 74 mg/dl <150 N LDL-CHOLESTEROL; Above High Threshold (test code = 17421-0) 117 {MG/DL JAX} Reference range: <100 Desirable range <100 mg/dL for primary prevention; <70 mg/dL for patients with CHD or diabetic patients with > or = 2 CHD risk factors. LDL-C is now calculated using the Jacque calculation, which is a validated novel method providing better accuracy than the Friedewald equation in the estimation of LDL-C. Abran MCMAHAN et al. LEONARDO. 2013;310(19): 0196-6631 (http://education.25eight.com/f aq/LUQ646) CHOL/HDLC RATIO (test code = CHOL/HDLC RATIO) 3.5 {CALC} <5.0 N NON HDL CHOLESTEROL (test code = NON HDL CHOLESTEROL) 134 {MG/DL JAX} <130 For patients with diabetes plus 1 major ASCVD risk factor, treating to a non-HDL-C goal of <100 mg/dL (LDL-C of <70 mg/dL) is considered a therapeutic option. [facility]] CMP [id number] 11:26:00* Test Item Value Reference Range Interpretation Comme nts GLUCOSE; Normal (test code = 1547-9) 86 mg/dl 65-139 N Non-fasting reference interval UREA NITROGEN (BUN) (test code = UREA NITROGEN (BUN)) 11 mg/dl 7-25 N CREATININE (test code = CREATININE) 0.60 mg/dl 0.50-1.10 N eGFR NON- (test code = eGFR NON-) 118 {ML/MIN/1.7} > OR = 60 N eGFR (test code = eGFR ) 137 {ML/MIN/1.7} > OR = 60 N BUN/CREATININE RATIO (test code = BUN/CREATININE RATIO) NOT APPLICABLE 6-22 SODIUM (test code = SODIUM) 140 mmol/L 135-146 N POTASSIUM (test code = POTASSIUM) 4.6 mmol/L 3.5-5.3 N CHLORIDE (test code = CHLORIDE) 104 mmol/L 98-110 N CARBON DIOXIDE (test code = CARBON DIOXIDE) 30 mmol/L 20-32 N CALCIUM (test code = CALCIUM) 9.5 mg/dl 8.6-10.2 N PROTEIN, TOTAL (test code = PROTEIN, TOTAL) 7.5 g/dl 6.1-8.1 N ALBUMIN (test code = ALBUMIN) 4.6 g/dl 3.6-5.1 N GLOBULIN (test code = GLOBULIN) 2.9 {G/DL CALC} 1.9-3.7 N ALBUMIN/GLOBULIN RATIO (test code = ALBUMIN/GLOBULIN RATIO) 1.6 {CALC} 1.0-2.5 N BILIRUBIN, TOTAL; Normal (test code = 63639-7) 0.7 mg/dl 0.2-1.2 N ALKALINE PHSPHATASE (test code = ALKALINE PHSPHATASE) 58 u/l 33-115 N AST; Normal (test code = 1916-6) 18 u/l 10-30 N ALT; Normal (test code = 1742-6) 12 u/l 6-29 N [facility]] TSH, 3RD GENERATION W/REFLEX TO [id number] 11:26:00* Test Item Value Reference Range Interpretation Comme nts TSH, 3RD GENERATION W/REFLEX TO FT4 (test code = TSH, 3RD GENERATION W/REFLEX TO FT4) 0.89 {MIU/L} N Reference Range > or = 20 Years 0.40-4.50 Ranges First trimester 0.26-2.66 Second trimester 0.55-2.73 Third trimester 0.43-2.91 [facility]] URINALYSIS, [id number] 16:42:01* Test Item Value Reference Range Interpretation Comme nts UA Turbidity (test code = 87753-3) Clear Clear UA Spec Grav (test code = 5810-7) 1.003 <=1.030 UA pH (test code = 5803-2) 6.0 5.0-8.0 UA Protein (test code = 00342-9) Negative Negative UA Glucose (test code = 26012-8) Negative Negative UA Ketones (test code = 76159-4) Negative Negative UA Bili (test code = 5770-3) Negative Negative UA Blood (test code = 5794-3) Negative Negative UA Nitrite (test code = 5802-4) Negative Negative UA Leuk Est (test code = 5799-2) Negative Negative UA WBC (test code = 90576-0) <1 0-5 UA Bacteria; Abnormal (test code = 81041-2) Many None Seen A UA Sq Epi (test code = 97182-0) Occasional Few UA Color (test code = 5778-6) Ltyellow UROBILINOGEN (test code = 85142-0) <=1.0 0.1-1.0 [facility]] CULTURE, URINE, [id number] 16:42:01* Test Item Value Reference Range Interpretation Comme [facility] FINAL REPORT (test code = FINAL REPORT) Specimen contains 3 or more potential pathogens; recommend correlation withurinalysis; if catheterized specimen recommend removal and recollection. Ifclinical situation warrants please call the laboratory for further testing. COMicrobiology [phone]. [facility][O] Urine Dipstick (In Office)2017-11-30 13:20:00* Test Item Value Reference Range Interpretation Comme nts Glucose (test code = Glucose) N N LEUKOCYTES (test code = LEUKOCYTES) N N NITRITE; Normal (test code = 92465-0) N N UROBILINOGEN; Normal (test c ode = 66620-4) N N PROTEIN; Normal (test code = 90449-1) N N pH (test code = pH) 6.0 N URINE BLOOD; Normal (test co de = 34506-3) N N SPECIFIC GRAVITY; Normal (te st code = 2965-2) 1.015 N KETONES; Normal (test code = 77181-1) N N BILIRUBIN; Normal (test code = 49786-5) N N COLOR URINE; Normal (test co de = 5778-6) YELLOW N APPEARANCE; Normal (test cod e = 5767-9) CLEAR N [facility][O] Urine Dipstick (In Office)2017-08-30 10:11:00* Test Item Value Reference Range Interpretation Comme nts LEUKOCYTES (test code = LEUKOCYTES) Negative N NITRITE; Normal (test code = 71489-5) Negative N PROTEIN; Normal (test code = 47899-2) Negative N URINE BLOOD; Abnormal (test code = 37922-9) Trace A KETONES; Normal (test code = 69290-6) Negative N GLUCOSE; Normal (test code = 1547-9) Negative N [facility] Notes Date/Time Note Provider Source 2024-07-20 21:42:00 Regardinyof BP 101/60 pulse 61 ----- Message from Patient Inner Layer Scrubber Tender sent at 07/20/2024 9:41 PM CDT ----- Jenn Horan is a 39 year old female Patient BP 101/60 pulse 61 mom wants to speak with nurse Aimee Amanda RN [facility] 2024-07-20 21:42:00 Jenn Horan is a 39 year old female whose mother is calling concerned about her blood pressure and asking if she should give her the Toprol XL. "She told us to start it if her heart rate was higher than 70, but it has not been that high. She did tell us that it would effect her blood pressure too and so I was concerned because her last couple of blood pressures have been 93/57, 63: 96/60, 60. She is not having any symptoms though." Heart failure diagnosed on Sunday, "I just was not thinking clear with everything going on. She may have told us. Oxygen has been 98-99% all day." RN reviewed past vitals and these Blood pressures recorded today are in line with those previously recorded. RN advised mother that since patient is not symptomatic, she should reach out to clinic in the AM before given any medication for clarification on Blood pressure parameter, if needed. (Ex: Give Toprol if BP > ? In addition to HR >70) Mother adds that patient is having her, "Normal dizzy feeling, but that is from the POTS and because she has not had her corlanor." Mother also reports that she only gave the patient a partial dose of her night time meds because she was worried about her blood pressure, she notes that she was able to see in the chart that a recent BP documented was 91/50. Mother aware that she can call back 16/10 for additional questions or reassessment needs. Aimee URIBE, RN Reason for Disposition Caller has medicine question only, adult not sick, AND triager answers question Protocols used: Medication Question [id number] [facility] 2024-07-18 10:15:00 Images from the original note were not included. Venipuncture collection performed by clean technique on the left forearm(s). Total of 1 attempts were made. Slight pressure and a bandage/dressing were applied to the site(s). The patient experienced no complications. The following specimens were processed according to instructions and sent to [facility] laboratories per lab order on 07/18/2024: LT BLUE SST 1 RED LAV 1 PPT DK GREEN (LiHep) DK GREEN (SodH) LING DK BLUE (K2) DK BLUE (S) ACD Blood Culture NIPT/NTD [facility] 2024-07-17 10:38:57 Called pt. S/w EC Wilmer. EC agreeable to FU appt tomorrow 07/18 at 9:30am. Reached out to Luis, Nurse Cylinder Grinder to make appt. Lisa Carcamo RN [facility] 2024-07-16 10:12:20 Images from the original note were not included. Per Dr. Tae Gonzalez, Called pt. No answer. VM box not set up. Unable to LMOR. [facility] 2024-04-25 09:38:06 Warm transferred from [facility]. Notified pt mother, Wilmer, of test results/recommendations per Dr. Valencia and Wilmer verbalized understanding. Wilmer questioned on further imaging of pt neck that was discussed during BRITTNEY. Appt made to further discuss with provider. [facility] 2024-04-25 09:20:03 Attempted to contact pt. LVHolly that I will call again at a later time. [facility] 2024-04-24 17:08:50 MRI normal. The dysautonomia specialist is Dr. Joseluis Mora in [place]. [facility] 2024-04-21 12:22:13 Dr. Valencia, please review MRI results and advise. Per BRITTNEY : -Brain MRI wo contrast -If abnormal findings will follow-up in clinic, if normal findings will consider further neck/spine imaging -Follow-up PRN -Consider future referral for dysautonomia specialist for further management. This issue is not evaluated in the general neurology clinic. [facility] 2024-04-21 11:27:04 Jenn Horan is a 39 year old female. Pts mother states that pt had MRI over a month ago and they still have not been informed on results. Mother requesting that provider or nurse call and review results. Please advise. [facility] Joaquim Sarbjit Lazaro [facility] 2024-01-22 10:35:00 Spoke to the patient's mother and informed her of all the information and she verbalized understanding and confirmed address on file for referral to be mailed to them. Ann RN [facility] 2024-01-22 09:47:17 Images from the original note were not included. Spoke to Shannon with [facility] and she states they received the external referral from the provider but they do not have this type of specialist. She provided number for outpatient physician clinic and spoke to Tana and she states they do have one dysautonomia specialist but they do not take the patient's insurance. Attempted to contact the patient to inform her she will need to contact her insurance and to inquire with them for a dysautonomia specialist covered. Referral can be mailed to her [facility] 2024-01-21 16:53:44 [facility] calling to speak with nurse regarding why the patient is being referred to them, and how we need to send the referral. Please advise Shannon option 3 Elaine Floyd [facility] 2024-01-21 14:00:00 Addended by: SULLY FLOOD RN on: 01/21/2024 03:44 PM Modules accepted: Orders Sully Flood RN [facility] 2023-10-25 14:12:52 Called number on file. Mother of patient was notified about negative Covid19 results. Mother of patient voiced in patient not getting better and is needing an RX. Patient is to be seen in urgent care for revaluation of symptoms. Mother of patient voiced understanding. Rashmi Adams RN 10/25/2023 2:16 PM [facility] 2023-08-17 10:30:00 Addended by: AMINA BECKHAM on: 08/17/2023 10:57 AM Modules accepted: Orders [facility] 2023-07-04 09:45:00 Addended by: AMINA BECKHAM on: 07/19/2023 11:41 AM Modules accepted: Orders [facility] 2022-11-26 18:34:52 Formatting of this n ote might be different from the original. Reviewed results with mother, she states azithromycin is the best for her, due to PCN allergy XR CHEST 2 VW Result Date: 11/26/2022 EXAM: XR CHEST 2 VW COMPARISON: None HISTORY: cough FINDINGS: Normal lung volumes. Streaky right lower lung zone airspace opacity. No pleural effusion or pneumothorax. The cardiomediastinal silhouette is mildly enlarged. No focal osseous lesions or acute osseous findings. Right basilar airspace opacity, atelectasis versus pneumonia. Mild cardiomegaly suspected. Preliminary Report Dictated by Resident: Mayank Padgett MD., have reviewed this study and agree with the above report. [facility] 2022-11-03 11:00:00 Addended by: Gamal TSANG on: 11/06/2022 12:45 PM Modules accepted: Orders [facility] 2022-11-03 11:00:00 Addended by: AMY JOYNER on: 11/07/2022 10:48 AM Modules accepted: Level of Service [facility] 2022-11-03 11:00:00 Addended by: Gamal TSANG on: 11/09/2022 08:12 AM Modules accepted: Orders [facility] 2021-08-24 20:32:00 [facility] OR [facility] EMERGENCY PROVIDER REPORT REPORT#:[id number] REPORT STATUS: Signed DATE:08/24/21 TIME: 2031 PATIENT: JENN HORAN UNIT #: [id number] ROOM/BED: AGE: 36 SEX: F PCP PHYS: No Primary or Family Physician SERVICE AUTHOR: Clarissa Montesinos DO * ALL edits or amendments must be made on the electronic/computer document * HPI-General Illness Free Text HPI Notes Free Text HPI Notes Patient is a 36-year-old female who complains of 3 days of a headache followed by fever at home cough and congestion. She has a slightly scratchy sore throat. She has a history of a partial pneumonectomy when she was an infant her small child. She has reactive airway disease. She also has a history of POTS disease. She is feeling a little weak and lightheaded and dizzy. Her mom is not sure if her p.o. intake has been quite as good over the last few days. She is visiting here on vacation. She has been around another person who has tested positive for COVID. The patient took a government issued home antigen test today which was positive. General Initial Greet Date/Time 08/24/211954 Presentation Chief Complaint Congested, Cough, Fever Review of Systems Free Text ROS Notes Free Text ROS Notes All other systems reviewed and negative except as documented above in the HPI Past Medical History - Adult Stated Complaint PUI, FEVER Allergies Coded Allergies: NSAIDS (Non-Steroidal Anti-Inflamma (Intermediate, RASH 08/24/21) Penicillins (Intermediate, RASH 08/24/21) hydromorphone (From DILAUDID) (Intermediate, RASH 08/24/21) morphine (Intermediate, ITCHY 08/24/21) Calculated Suicide Risk (nurs) No risk Additional Medical History Reactive airway disease, partial pneumonectomy, pots disease, "mental issues", Smoking status for patients 13 years old or older: Never Smoker Physical Exam Vital Signs Vital Signs First Documented: Result Date Time Pulse Ox 93 08/24 2002 B/P 101/68 08/24 2002 B/P Mean 79 08/24 2002 Temp 98.2 08/24 2002 Pulse 75 /2002 Resp 18 08/24 2002 Last Documented: Result Date Time Pulse Ox 93 08/24 2002 B/P 101/68 08/24 2003 B/P Mean 79 /2002 Temp 98.2 08/24 2002 Pulse 75 /2002 Resp 18 08/24 2002 Review of Vital Signs Reviewed Free Text PE Notes Free Text PE Notes Physical exam Constitutional: Oriented to person place and time, appears well Head: Normocephalic/atraumatic ENT: External ears are normal MOUTH: Mucous membranes moist lips are slightly dry Throat: No drooling or stridor minimal erythema but no significant erythema exudate or swelling airway is widely patent Neck: Supple, trachea midline Cardiovascular: Intact distal pulses, extremities warm and well-perfused regular rate and rhythm Pulmonary/chest: Normal respiratory effort, nonlabored few scattered wheezes Abdomen: Soft, normal appearing, nontender Musculoskeletal: Moves all extremities, no gross deformity Neurological: Alert, conversant, follows commands, moves all extremities, no gross abnormalities Skin: Warm dry and intact sunburn on bilateral forearms Psychiatric: Cooperative, normal affect Interpretation Diagnostics Lab Results Interpretation Results Laboratory Tests 08/24/212029: [Embedded Image Not Available] 08/24/212027: [Embedded Image Not Available] Laboratory Tests: 08/24 Chemistry Sodium (133 - 145 [...] (Auto) (24 - 44 %) 20.7 L [place] % (Auto) (0.0 - 4.0 %) 11.4 H Absolute Neuts (auto) (1.8 - 7.7 x10 3/uL) 1.40 L Absolute Lymphs (auto) (1.0 - 4.8 x10 3/uL) 0.40 L Absolute Monos (auto) (0.0 - 0.8 x10 3/uL) 0.20 Serology SARS CoV-2 RNA Rapid DANNI (Negative) Positive H Recent Impressions: RADIOLOGY - XR CHEST 1 V 08/24 2020 Report Impression - Status: SIGNED Entered: 08/24/20212030 IMPRESSION: No definite focal consolidation. Impression By: [email or web address] - Cal Galvan MD Re-Evaluation MDM Free Text MDM Notes Free Text MDM Notes Patient is a 36-year-old with previous history of [...] COVID was positive. Patient is at high risk for progression of her disease and will prescribe the Pfizer oral medication for her chest x-ray shows no focal consolidation pneumonia or other acute abnormality I have him written her prescription for Pfizer's paxlovid since she is at higher risk to progress to more severe disease. Also have given her prescription for her nebs prednisone and supportive care items ED Course Medication(s) Ordered Medication(s) Ordered: Electrolytic, Caloric, And Mindi Sig/Logan Start time Last [...] IV 08/24 2105 Patient Discharge Departure Vital Signs/Condition Vital Signs First Documented: Result Date Time Pulse Ox 93 08/24 2002 B/P 101/68 08/24 2002 B/P Mean 79 08/24 2002 Temp 98.2 08/24 2002 Pulse 75 08/24 2002 Resp 18 08/24 2002 Last Documented: Result Date Time Pulse Ox 93 08/24 2002 B/P 101/68 08/24 2002 B/P Mean 79 08/24 2002 Temp 98.2 08/24 2002 Pulse 75 08/24 2002 Resp 18 08/24 2002 All vital signs available at the time of this entry have been reviewed. Clinical Impression Clinical Impression Primary Impression: COVID-19 Secondary Impressions: Angel disease Disposition Decision Discharge )( Discharged to Home Yes )( Time 210 )( Date 08/24/21 Discharge/Care Plan Counseled Regarding Diagnosis, Lab results, Imaging studies, Need for follow-up, When to return to ED (Auto) Prescriptions Current Visit Scripts IPRATROPIUM (ATROVENT 0.02%) 250 MCG INH RTQ6H [...] Novel Coronavirus, Caring for Someone Who Has COVID-19 Additional Instructions Encourage oral fluids. Return to the ER for any increased difficulty breathing, oxygen saturations under 92%, increased dizziness, vomiting, or change or worsening of your condition. Follow-up with your regular doctor this week for recheck. at 0228 RPT #:[id number] END OF REPORT [facility]
[2024-07-21] MEDS ORDERED: ACETAMINOPHEN 500 MG TAB ONE (01:00)
[2024-07-21 01:28] LABS: Absolute Eosinophils 0.1 K/uL (0-0.5); Absolute Lymphocytes (CBC) 1.1 K/uL (0.7-4.9); Absolute Monocytes 0.2 K/uL (0.1-1.3); Absolute Neutrophil 1.1 K/uL (1.8-8.0); Basophils % 1.3 % (0-1.3); Eosinophils % 3.2 % (0-4.4); Hematocrit 36.3 % (36.0-45.0); Hemoglobin 12.5 g/dL (12.0-15.0); Lymphocytes % 44.2 % (15.3-44.8); MCH 29.6 pg (27.0-35.0); MCHC 34.4 g/dL (32.0-36.0); MCV 86.1 fL (80-100); MPV 8.2 fL (7.6-11.3); Monocytes % 6.6 % (3.3-12.3); Neutrophils % 44.7 % (41.7-73.7); Nucleated Red Blood Cells % 0.2 % (0-0); Platelets 187 thou/uL (152-406); RBC Red Blood Cell Count 4.22 M/uL (3.86-4.86); Red Cell Distribution Width 13.7 % (12.1-15.2)
[2024-07-21 01:43] LABS: ALT/SGPT 43 U/L (13-56); AST/SGOT 25 U/L (15-37); Albumin 3.7 g/dL (3.4-5.0); Albumin/Globulin Ratio 1.1 (1.1-1.8); Alkaline Phosphatase 84 U/L (45-117); Anion Gap 5.7 mEq/L (5.0-15.0); BUN Blood Urea Nitrogen 18 mg/dL (7-18); Bicarbonate 32 mEq/L (21-32); Bilirubin Total 0.4 mg/dL (0.2-1.0); Globulin 3.5 g/dL (2.3-3.5); Glomerular Filtration Rate 113 ml/min (=/>90); Glucose Level 89 mg/dL (74-106); NT PRO-BNP 27 pg/mL (<125); Potassium 3.7 mEq/L (3.5-5.1); Protein, Total 7.2 g/dL (6.4-8.2); Sodium Level 139 mEq/L (136-145); Troponin High Sensitivity 10.3 pg/mL (<58.9)
[2024-07-21 01:46] LABS: Bilirubin Direct < 0.2 mg/dL (0-0.2); Bilirubin Indirect, Calculated 0.2 mg/dL (0.2-0.8)
--- NOTE | 2024-07-21 02:12 | ER ---
Nurse's Notes [facility] Name: Jenn Horan Age: 39 yrs Sex: Female : 1985 Arrival Date: 07/21/2024 Time: 00:17 Bed 2 Private MD: Diagnosis: Chest pain, unspecified Presentation: 07/21 00:20 Chief complaint: Patient states: I have this chest pain that started one hour ago and bm8 gets worse when I move around. 00:20 Method Of Arrival: EMS: [facility] bm8 00:20 Coronavirus screen: Vaccine status: Patient reports receiving the 2nd dose of the covid bm8 vaccine. Ebola Screen: Patient negative for fever greater than or equal to 101.5 degrees Fahrenheit, and additional compatible Ebola Virus Disease symptoms Patient denies exposure to infectious person. Patient denies travel to an Ebola-affected area in the 21 days before illness onset. No symptoms or risks identified at this time. Initial Sepsis Screen: Does the patient meet any 2 criteria? No. Patient's initial sepsis screen is negative. Does the patient have a suspected source of infection? No. Patient's initial sepsis screen is negative. Risk Assessment: Do you want to hurt yourself or someone else? Patient reports no desire to harm self or others. Onset of symptoms was July 21, 2024 at 00:00. 00:20 Acuity: SVETLANA 2 bm8 Triage Assessment: 00:46 General: Appears in no apparent distress. comfortable, Behavior is calm, cooperative, bm8 appropriate for age. Pain: Complains of pain in xiphoid area Pain currently is 5 out of 10 on a pain scale. EENT: No deficits noted. No signs and/or symptoms were reported regarding the EENT system. Neuro: No deficits noted. Level of Consciousness is awake, alert, obeys commands, Oriented to person, place, time, situation, Appropriate for age. Cardiovascular: Reports chest pain, Heart tones S1 S2 present Capillary refill < 3 seconds in bilateral fingers Patient's skin is warm and dry. Respiratory: Airway is patent Respiratory effort is even, unlabored, Respiratory pattern is regular, symmetrical, Breath sounds are clear bilaterally. GI: No signs and/or symptoms were reported involving the gastrointestinal system. : No signs and/or symptoms were reported regarding the genitourinary system. Derm: No signs and/or symptoms reported regarding the dermatologic system. Musculoskeletal: No signs and/or symptoms reported regarding the musculoskeletal system. AMBULATORY CARE: 00:46 unknown bm8 Historical: - Allergies: 00:46 Biaxin; bm8 00:46 Cefaclor; bm8 00:46 Demerol; bm8 00:46 hydromorphone HCl; bm8 00:46 Morphine; bm8 00:46 NSAIDS (Non-Steroidal Anti-Inflammatory Drug); bm8 00:46 PENICILLINS; bm8 - Home Meds: 00:46 Unable to obtain [Active]; bm8 - PMHx: 00:46 Asthma; Cerebral Palsy; Erythromelalgia; GERD; Hearing Loss; Incomplete R BBB; POTS; bm8 reactive airway; - PSHx: 00:46 Appendectomy; Cholecystectomy; hysterectomy; Tonsillectomy; bm8 - Immunization history:: Adult Immunizations up to date. - Infectious Disease History:: Denies. - Social history:: Smoking status: Patient denies any tobacco usage or history of. - Family history:: not pertinent. Screenin:48 [facility] ED Fall Risk Assessment (Adult) History of falling in the last 3 months, bm8 including since admission Yes- physiologic fall (2 pts) Confusion or Disorientation No (0 pts) Intoxicated or Sedated No (0 pts) Impaired Gait Yes (1 pt) Mobility Assist Device Used Yes (1 pt) Altered Elimination Yes (1 pt) Score/Fall Risk Level 3 or more points = High Risk Oriented to surroundings, Maintained a safe environment, Educated pt \T\ family on fall prevention, incl call for assistance when getting out of bed, Assessed \T\ reinforced patient's understanding of fall precautions, Hourly rounding (assess needs \T\ fall precautionary measures) done, Used ambulatory aids as needed (educated on \T\ assisted with), Used gait belt as appropriate Implemented a Fall Risk Plan of Care. Abuse screen: Denies threats or abuse. Nutritional screening: No deficits noted. Tuberculosis screening: No symptoms or risk factors identified. Assessment: 00:48 Reassessment: see triage assessment. bm8 02:12 Reassessment: Patient appears in no apparent distress at this time. Patient and/or bm8 family updated on plan of care and expected duration. Pain level reassessed. Patient is alert, oriented x 3, equal unlabored respirations, skin warm/dry/pink. Patient states feeling better. Patient states symptoms have improved. Pain: Pain does not radiate. Pain currently is 2 out of 10 on a pain scale. Pain began 1 hour ago. Vital Signs: 00:20 BP 116 / 78; Pulse 68; Resp 18; Temp 98.3; Pulse Ox 98% ; Weight 70.76 kg; Height 5 ft. bm8 7 in. ; Pain 5/10; 02:12 BP 115 / 69; Pulse 63; Resp 18; Temp 98.3; Pulse Ox 98% ; Pain 2/10; bm8 00:20 Body Mass Index 24.43 (70.76 kg, 170.18 cm) bm8 00:20 Pain Scale: Adult bm8 02:12 Pain Scale: Adult bm8 [place] Coma Score: 00:48 Eye Response: spontaneous(4). Motor Response: obeys commands(6). Verbal Response: bm8 oriented(5). Total: 15. 02:12 Eye Response: spontaneous(4). Motor Response: obeys commands(6). Verbal Response: bm8 oriented(5). Total: 15. ED Course: 00:19 Patient arrived in ED. bm8 00:22 Benja Pham MD is Attending Physician. rt 00:41 Bhavin Alfaro, RN is Primary Nurse. bm8 00:46 Triage completed. bm8 00:46 Arm band placed on left wrist. bm8 00:47 XRAY Chest (1 view) In Process Unspecified. EDMS 00:48 Patient has correct armband on for positive identification. Placed in gown. Bed in low bm8 position. Call light in reach. Side rails up X2. Adult w/ patient. Client placed on continuous cardiac and pulse oximetry monitoring. NIBP monitoring applied. guard driver on. Pulse ox on. NIBP on. Door closed. Noise minimized. Warm blanket given. Pillow given. Verbal reassurance given. Head of bed elevated. 00:48 No provider procedures requiring assistance completed. EKG done, by ED staff, reviewed bm8 by Bhavin Alfaro RN. Patient maintains SpO2 saturation greater than 95% on room air. 02:12 Provided Education on: post er care. bm8 02:12 IV discontinued, intact, bleeding controlled, No redness/swelling at site. Pressure bm8 dressing applied. Administered Medications: 01:20 Drug: Acetaminophen PO 1000 mg PO once Route: PO; bm8 02:13 Follow up: Response: No adverse reaction bm8 Medication: 00:48 VIS not applicable for this client. bm8 Outcome: 02:12 Discharge ordered by . rt 02:12 Discharged to home with family, bm8 02:12 Condition: stable 02:12 Discharge instructions given to patient, family, Instructed on discharge instructions, follow up and referral plans. no drinking with medication, no driving heavy equipment, medication usage, safety practices, Demonstrated understanding of instructions, follow-up care, medications, 02:28 Patient left the ED. bm8 Signatures: Dispatcher [employer] EDMS Benja Pham MD MD rt Bhavin Alfaro, RN RN bm8
--- NOTE | 2024-07-21 02:12 | EDPHYS ---
Physician Documentation [facility] Name: Jenn Horan Age: 39 yrs Sex: Female : 1985 Arrival Date: 07/21/2024 Time: 00:17 Bed 2 Private MD: ED Physician Benja Pham HPI: 07/21 01:23 This 39 yrs old Female presents to ER via EMS with complaints of Chest Pain. rt 01:23 Patient presents to the ED with chest pain. She reports that she had a recent diagnosis rt of congestive heart failure on an echocardiogram but had no symptoms from that. The chest pain started about an hour ago when she turned to the right. States that the pain does get worse when she turns to the side. Denies difficulty breathing, the kaur complaints, symptoms are moderate in severity, no other aggravating or alleviating factors.. 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 - Infectious Disease History:: Denies. - Social history:: Smoking status: Patient denies any tobacco usage or history of. - Family history:: not pertinent. ROS: 01:23 Constitutional: Negative for fever, chills, and weight loss, Respiratory: Negative for rt shortness of breath, cough, wheezing, and pleuritic chest pain, Abdomen/GI: Negative for abdominal pain, nausea, vomiting, diarrhea, and constipation, MS/Extremity: Negative for injury and deformity, Skin: Negative for injury, rash, and discoloration, 01:23 Cardiovascular: Positive for chest pain, Negative for edema, Exam: 01:23 Constitutional: This is a well developed, well nourished patient who is awake, alert, rt and in no acute distress. Head/Face: Normocephalic, atraumatic. Cardiovascular: Regular rate and rhythm with a normal S1 and S2. No gallops, murmurs, or rubs. Normal PMI, no JVD. No pulse deficits. Respiratory: Lungs have equal breath sounds bilaterally, clear to auscultation and percussion. No rales, rhonchi or wheezes noted. No increased work of breathing, no retractions or nasal flaring. Abdomen/GI: Soft, non-tender, with normal bowel sounds. No distension or tympany. No guarding or rebound. No evidence of tenderness throughout. Skin: Warm, dry with normal turgor. Normal color with no rashes, no lesions, and no evidence of cellulitis. MS/ Extremity: Pulses equal, no cyanosis. Neurovascular intact. Full, normal range of motion. Neuro: Awake and alert, GCS 15, oriented to person, place, time, and situation. Cranial nerves II-XII grossly intact. Motor strength 5/5 in all extremities. Sensory grossly intact. Cerebellar exam normal. Normal gait. 01:23 Chest/axilla: Palpation over anterior chest wall patient's chest. 01:23 ECG was reviewed by the Attending Physician. rt Vital Signs: 00:20 BP 116 / 78; Pulse 68; Resp 18; Temp 98.3; Pulse Ox 98% ; Weight 70.76 kg; Height 5 ft. bm8 7 in. ; Pain 5/10; 02:12 BP 115 / 69; Pulse 63; Resp 18; Temp 98.3; Pulse Ox 98% ; Pain 2/10; bm8 00:20 Body Mass Index 24.43 (70.76 kg, 170.18 cm) bm8 00:20 Pain Scale: Adult bm8 02:12 Pain Scale: Adult bm8 Clarissa Coma Score: 00:48 Eye Response: spontaneous(4). Motor Response: obeys commands(6). Verbal Response: bm8 oriented(5). Total: 15. 02:12 Eye Response: spontaneous(4). Motor Response: obeys commands(6). Verbal Response: bm8 oriented(5). Total: 15. MDM: 00:27 Medical Screening Exam initiated rt 02:29 Differential diagnosis: ACS, pneumonia, chest wall pain. HEART Score: History: Slightly rt Suspicious (0), ECG: Non specific repolarization disturbance / LBTB / PM (1), Age: < or = 45 years (0), Risk Factors: 1 or 2 risk factors (1), Troponin: < or = 1 x Normal Limit (0), Total Score = 2. Data reviewed: vital signs, nurses notes, lab test result(s), EKG, radiologic studies. Consideration of Admission/Observation Escalation of care including admission/observation considered. Low suspicion for ACS, cardiac etiology given clinical presentation. Patient has a low heart score, do not believe that she requires admission for restratification, she has appoint with her personal insurance advisor this week, believe that she is stable for discharge, to follow-up with her personal insurance advisor, return precautions were discussed.. I considered the following discharge prescriptions or medication management in the emergency department Medications were administered in the Emergency Department. See MAR. Independent interpretation of the following test(s) in the Emergency Department X-Ray: My interpretation is No infiltrate seen on my interpretation of x-ray images. Test considered but Not performed: CT: Low suspicion for pulmonary embolus, CT angiogram not indicated. Care significantly affected by the following chronic conditions: Congestive Heart Failure. Counseling: I had a detailed discussion with the patient and/or guardian regarding the historical points, exam findings, and any diagnostic results supporting the discharge/admit diagnosis, lab results, radiology results, the need for outpatient follow up, to return to the emergency department if symptoms worsen or persist or if there are any questions or concerns that arise at home. Response to treatment: the patient's symptoms have markedly improved after treatment. 07/21 00:37 Order name: Basic Metabolic Panel; Complete Time: :50 rt 07/21 00:37 Order name: CBC with Diff; Complete Time: 02: rt 07/21 00:37 Order name: LFT's; Complete Time: : rt 07/21 00:37 Order name: NT PRO-BNP; Complete Time: :50 rt 07/21 00:37 Order name: Troponin HS; Complete Time: : rt 07/21 01:31 Order name: CBC Smear Scan; Complete Time: 02:23 EDMS 07/21 00:37 Order name: XRAY Chest (1 view) rt 07/21 00:37 Order name: EKG; Complete Time: 00:38 rt 07/21 00:37 Order name: Cardiac monitoring; Complete Time: rt 07/21 00:37 Order name: EKG - Nurse/Tech; Complete Time: rt 07/21 00:37 Order name: IV Saline Lock; Complete Time: rt 07/21 00:37 Order name: Labs collected and sent; Complete Time: rt 07/21 00:37 Order name: O2 Per Protocol; Complete Time: rt 07/21 00:37 Order name: O2 Sat Monitoring; Complete Time: rt EC: Rate is 67 beats/min. Rhythm is regular, 1st Degree Block with Right bundle branch rt block. Right axis deviation noted. HI interval is prolonged at 220 msec. QRS interval is normal. QT interval is normal. No Q waves. No ST changes noted. Administered Medications: Drug: Acetaminophen PO 1000 mg PO once Route: PO; bm8 02:13 Follow up: Response: No adverse reaction bm8 Disposition Summary: 07/21/24 02:12 Discharge Ordered Notes: Location: Home rt Problem: new rt Symptoms: have improved rt Condition: Stable rt Diagnosis - Chest pain, unspecified rt Followup: rt - With: Private Physician - When: 2 - 3 days - Reason: Discharge Instructions: - Discharge Summary Sheet rt - Nonspecific Chest Pain, Adult rt Forms: - Medication Reconciliation Form rt - Antibiotic Education rt - Prescription Opioid Use rt - Patient Portal Instructions rt - Leadership Thank You Letter rt Signatures: Dispatcher [employer] EDMS Benja Pham MD MD rt Bhavin Alfaro, RN RN bm8 Corrections: (The following items were deleted from the chart) 00:38 00:38 BASIC METABOLIC PANEL+C.LAB.BRZ ordered. EDMS EDMS 00:38 00:38 CBC+H.LAB.BRZ ordered. EDMS EDMS 00:38 00:38 HEPATIC FUNCTION+C.LAB.BRZ ordered. EDMS EDMS 00:38 00:38 PROBNP+C.LAB.BRZ ordered. EDMS EDMS 00:38 00:38 Troponin High Sensitivity+C.LAB.BRZ ordered. EDMS EDMS
[2024-07-21 02:19] LABS: Blood Morphology Comment NOT SEEN (NOT SEEN); Platelet Estimate ADEQ; White Blood Cell Scan OK (OK)
--- NOTE | 2024-07-21 05:40 | RAD REPORT ---
CLINICAL HISTORY: Chest pain. COMPARISON: None. TECHNIQUE: XR CHEST 1 VIEW 07/21/2024 12:37 AM CDT FINDINGS: Cardiac silhouette is normal in size. Lungs are clear without consolidation, atelectasis, mass or vivek ma. There is no pleural effusion. There is no pneumothorax. There are no acute osseous findings. IMPRESSION: Clear lungs. Electronically signed by: Baltazar Alston MD 07/21/2024 02:01 AM CDT RP Due to temporary technical issues with the [employer]ACS/[employer] reporting system, reports are being tahir d by the in-house radiologist without review as a courtesy to ensure prompt reporting the interpreting radiologist is fully responsible for the content of the report. Transcribed Date/Time: 07/21/2024 5:40 AM
--- NOTE | 2024-07-21 12:07 | EKG ---
Test Date: 2024-07-21 Test Time: 00:23:48 [employer]: DULCE MARIA MEASUREMENT RESULTS: Intervals: Rate: 67 NV: 220 QRSD: 110 QT: 414 QTc: 437 [place]: P: 8 NV: 220 QRS: 268 T: 38 INTERPRETIVE STATEMENTS: Sinus rhythm with 1st degree AV block Possible Left atrial enlargement Right superior axis deviation Incomplete right bundle branch block Right ventricular hypertrophy Anterior infarct, age undetermined Abnormal ECG Compared to ECG 02/26/2023 14:35:34 Right superior axis now present Incomplete right bundle-branch block now present Right ventricular hypertrophy now present Left-axis deviation no longer present Right bundle-branch block no longer present Myocardial infarct finding still present Electronically Signed On 07-21-24 12:06:20 CDT by Derrick Jay
[2024-07-22 10:33] VITALS: TEMP 98.3; O2SAT 98
[2024-07-22 10:35] VITALS: BP 115/69
== END 2024-07-21 02:28 | disposition home or self-care (01) ==
LOC: ER 00:17
DX: R07.9 Chest pain, unspecified (principal)
CPT/HCPCS: 36415; 71045; 80048; 80076; 83880; 84484; 85025; 93005; 99284

== ENCOUNTER 2024-07-25 08:22 | Emergency (ER) | payer OTHER ==
--- OUTSIDE RECORDS SUMMARY | 2024-07-25 08:32 | XMS REPORT | Continuity of Care Document ---
Author Name Unknown Address [address] [facility] [address] [place] [address] [facility] Address [address] [facility] [place] [address] Care Team Providers Care Medical Supply Technician Name Role Phone JAI SAMUEL Primary Care Physician Unavailab michael Alcaraz, ANNE Attending Clinician Unavailable MK NUNEZ Attending Clinician Unava ilable JAI SMAUEL Attending Clinician Unavailable MARK CLEMONS Attending Clinician Unavailab NATHALIA Guerrero Attending Clinician Unavailable BLADIMIR CORBETT Attending Clinician Unavailable JOSELO VARGAS Attending Clinician Unavailable BRYON CHERY Attending Clinician Unavailable DAVID CAVAZOS Attending Clinician Unavailable JAYY KAY Attending Clinician Unavaila ble ONDINA BOLAND Attending Clinician Unav ailable ONDINA BOLAND Attending Clinician Unav Ondina Stroud MD Attending Clinician + Jayy Kay MD Attending Clinician Vasiliy PARKER, Aimee Boone Attending Clinician Unavailelvia Dias, [facility] Attending Clinician UnavailGURPREET Cox Attending Clinician Unavail able GURPREET VALENCIA Attending Clinician Unavail able Gurpreet Valencia MD Attending Clinician UKSTEPHEN MARESOZI Attending Clinician Unavailable Fabio MARX, Tj Attending Clinician [phone] TJ MCCARTHY Attending Clinician Unavailable TJ MCCARTHY Attending Clinician Unavailable MIRTA LEDESMA Attending Clinician Unavailable Rashmi Adams RN Attending Clinician Unavaila kiya Cheek RN, Cassie Rebollar Attending Clinician Unavaila AMINA Cevallos Attending Clinician Unavailable Julian MARX, Amina Attending Clinician [phone] Unknown, Attending Attending Clinician Unavailab GABRIEL Marei Attending Clinician Unava ilable Lawrence Sanchez Attending Clinician [phone] LAWRENCE BARFIELD Attending Clinician Unavailable Timoteo Koch PA-C Attending Clinician [phone] TIMOTEO KOCH Attending Clinician Unavailable Doctor Unassigned, [place] Attending Clinician U anish Tsang MD, Aime Attending Clinician + [phone] Zenaida Mendiola MD Attending Clinician [phone] Marlene Daigle MD Attending Clinician + [phone] JAGDEEP STUBBS Attending Clinician Unavailable Argenis Sequeira MD Attending Clinician [phone] Ingrid Lares RN Attending Clinician Unavail able SEB LEBLANC Attending Clinician Unavailable Pancho Yu RN Attending Clinician Unavailable Kendra Gibbons RN Attending Clinician Unavaila DAVID Gotti Attending Clinician Unavailable Ericka Coley RN Attending Clinician Unavailable Clarissa Montesinos Attending Clinician Unavailable Jones Pool RN Attending Clinician Unavailelvia Stevens MD, Amy Attending Clinician + Rosio Segundo MD Attending Clinician [phone] Bernie Yepez MA Attending Clinician Fozai Little MD Attending Clinician [phone] Jase PARKER, Neva Attending Clinician MARK Murray NP Attending Clinician JOSELO Wasserman M.D. Attending Clinician FOZIA Canales M.D. Attending Clinician SLICK Espinal M.D. Attending Clinician CODEY Foy M.D. Attending Clinician CODEY Jackson Attending Clinician ZAY Swan M.D. Attending Clinician ROXANA Melvin M.D. Attending Clinician ANABEL Kemp M.D. Attending Clinician FRED Muir M.D. Attending Clinician ASHLEY Quintero M.D. Attending Clinician MARINO Castaneda M.D. Attending Clinician Ibis quigley MED PROVIDER, [facility] Attending Clinician NATHALIA Wilson M.D. Attending Clinician Unavail katarzyna HOLTER, NON-INVASIVE Attending Clinician Unavail JORDI Shepherd M.D. Attending Clinician KARINE Villa M.D. Attending Clinician HIRAL Lucas P.A. Attending Clinician BLANCA Wilcox M.D. Attending Clinician RAGHAVENDRA Hernández M.D. Attending Clinician ELIZABETH Walters M.D. Attending Clinician Titus Thompson M.D. Attending Clinician Un GABRIELLA Hudson M.D. Attending Clinician NASEEM Spears M.D. Attending Clinician JAYY Hi Admitting Clinician GURPREET Loco Admitting Clinician DAVID Roy Admitting Clinician Unavailable Physician, No Primary or Family Admitting Clinic isaias Unavailable CODEY PHELPS Admitting Clinician Ayan cerda Payers Payer Name Policy Type Policy Number Effective Date Expirati on Date Source [facility] [id number] 2011 00:00:00 2017 00:00:00 [employer] PPO [id number] 2008 00:00:00 [facility] [place] [facility]AR [facility] [id number] 2023 00:00:00 [facility]UN[facility] STARPLUS OON EXCEPT [facility] [id number] 2023 00:00:00 [employer] STAR PLUS [id number] 2022 00:00:00 [facility] [id number] 2017 00:00:00 [facility] Problems Condition Name Condition Details Condition Category Status Onset Date Resolution Date Last Treatment Date Treating Clinician Comments Source Right shoulder pain Right shoulder pain Disease Active 04-11 00:00: 00 [facility] Right shoulder pain Right shoulder pain Disease Active 04-11 00:00: 00 [facility] Acute pain of right shoulder Acute pain of right shoulder Disease Active 2021-03 00:00: 00 [facility] Adhesive capsulitis of right shoulder Adhesive capsulitis of right shoulder Disease Active 2021-03 00:00: 00 Last Assessmen t & Plan: Formattin g of this note might be different from the original. Reassured today. Recommend a trial of physical therapy to continue. Updated PT note provided today. May follow-up as needed. [facility] Acute pain of right shoulder Acute pain of right shoulder Disease Active 2021-03 00:00: 00 [facility] Erythromel algia Erythromel algia Disease Active 3- 00:00: 00 [facility] Cerebral palsy Cerebral palsy Disease Active 3- 00:00: 00 [facility] Intellectu al disability Intellectu al disability Disease Active 3- 00:00: 00 [facility] Urinary incontinen ce Urinary incontinen ce Disease Active 3- 00:00: 00 [facility] Asthma Asthma Disease Active 8- 00:00: 00 [facility] Bundle branch block Bundle branch block Disease Active 6-24 00:00: 00 [facility] Atrial fibrillati on Atrial fibrillati on Disease Active 6-24 00:00: 00 [facility] Schizophre elle, unspecifie d Schizophre elle, unspecifie d Disease Active 09-14 00:00: 00 [facility] Analysis Of Computeriz ed Data [...] coronaviru s 2 (SARS-CoV- 2) Problem Active [facility] Allergies, Adverse Reactions, Alerts Allergy Name Allergy Type Status Severity Reaction(s) Onset Date Inactive Date Treating Clinician Comments Source NIRMATRE LVIR-RIT ONAVIR DRUG Active Unknown-Cmnt 10-22 00:00: 00 [facility] CLARITHR OMYCIN DRUG INGREDI Active Unknown-Cmnt 10-22 00:00: 00 [facility] CEFACLOR DRUG INGREDI Active Rash 10-22 00:00: 00 [facility] Clarithr omycin Propensi ty to adverse reaction s Active Unknown - See comments 0 10-22 00:00: 00 Z pack ok per MOCBad headache, went to to ED [facility] Cefaclor Propensi ty to adverse reaction s Active Unknown - See comments 0 10-22 00:00: 00 Rash all over [facility] Nirmatre lvir-Rit onavir Propensi ty to adverse reaction s Active Unknown - See comments 0 10-22 00:00: 00 Did not mix well with colenor [facility] NSAIDS (NON-RAFI ROIDAL ANTI-INF LAMMATOR Y DRUG) Drug Class Active Swelling 2022-0 8-19 00:00: 00 [facility] PENICILL IN DRUG INGREDI Active Hives 2022-0 8-19 00:00: 00 [facility] Nsaids (Non-Rafi roidal Anti-Inf lammator y Drug) Propensi ty to adverse reaction s Active Swelling 2022-0 8-19 00:00: 00 [facility] Penicill in Propensi ty to adverse reaction s Active Hives 2022-0 8-19 00:00: 00 [facility] Nsaids (Non-Rafi roidal Anti-Inf lammator y Drug) Propensi ty to adverse reaction s Active Swelling 3-0 8-19 00:00: 00 [facility] NSAIDS (Non-Rafi roidal Anti-Inf lamma Allergy to substanc e Active 0 6-04 00:00: 00 [facility] Penicill in Allergy to substanc e Active 0 6-04 00:00: 00 [facility] Morphine Allergy to substanc e Active 0 6-04 00:00: 00 [facility] Cefaclor Allergy to substanc e Active 0 6-04 00:00: 00 [facility] Clarithr omycin Allergy to substanc e Active 0 6-04 00:00: 00 [facility] Meperidi ne Allergy to substanc e Active -04 00:00: 00 [facility] Hydromor phone Allergy to substanc e Active 0 604 00:00: 00 [facility] NSAIDS (Non-Rafi roidal Anti-Inf lamma DA Active MO RASH 0 08-24 00:00: 00 [facility] Penicill ins DA Active MO RASH 0 08-24 00:00: 00 [facility] morphine DA Active MO ITCHY 0 08-24 00:00: 00 [facility] hydromor phone DA Active MO RASH 0 08-24 00:00: 00 [facility] Penicill ins Propensi ty to adverse reaction s Active 0 8 00:00: 00 [facility] Cefaclor Allergy to substanc e Active 0 28 00:00: 00 [facility] Hydromor phone Allergy to substanc e Active 0 28 00:00: 00 [facility] Meperidi ne Allergy to substanc e Active 0 28 00:00: 00 [facility] Metoclop ramide Allergy to substanc e Active 0 -28 00:00: 00 [facility] Morphine Allergy to substanc e Active 0 -28 00:00: 00 [facility] Nsaids Allergy to substanc e Active 0 28 00:00: 00 [facility] Biaxin TABS Allergy to drug (finding ) [...] drug (finding ) [facility] Drug Class Active [facility] NSAIDS (Non-Rafi roidal Anti-Inf lamma DA Active [facility] Penicill ins DA Active [facility] morphine DA Active [facility] cefaclor DA Active [facility] clarithr omycin DA Active [facility] meperidi ne DA Active [facility] hydromor phone DA Active [facility] Family History Family Member Diagnosis Comments Start Date Stop Date Sourc e Unknown Family Member Family history of Hypertension Family History [facility] Grandmother Family history of rheumatoid arthritis [facility] Mother Family history of hypertension [facility] Social History Social Habit Start Date Stop Date Quantity Comments Source History SDOH Alcohol Comment [facility] Sexual orientation [facility] ASSERTION Not [facility] of Social function 2024-06-06 00:00:00 2024-06-06 00:00:00 [facility] Tobacco use and exposure 2024-01-21 00:00:00 2024-01-21 00:00:00 Smokeless tobacco non-user [facility] Alcohol intake 2022-11-03 00:00:00 2022-11-03 00:00:00 Lifetime [...] Health Cigarette pack-years 2021-01-20 00:00:00 2021-01-20 00:00:00 [facility] Sex assigned at 1985 00:00:00 1985 00:00:00 [facility] Smoking Status Start Date Stop Date Source Tobacco smoking consumption unknown [facility] Never smoked tobacco [facility] Medications Ordered Medication Name Filled Medication Name Start Date Stop Date Current Medication? Ordering Clinician Indication Dosage Frequency Signature (SIG) Comments Components Source metoprolol succinate XL 25 mg 24 hr tablet 07-18 00:00: 00 Yes [id number] 12.5mg Take 0.5 tablets by mouth in the morning. [facility] perflutren protein-A microsphr (OPTISON) injection 3 mL 07-09 20:30: 00 07-09 19:57 :00 No [id number] 3mL 3 mL, IV Push, ONCE, 1 dose, On Sun07/09/24 at 1530, Routine [facility] ivabradine (CORLANOR) 7.5 mg tablet 06-02 00:00: 00 07-18 00:00 :00 No [id number] 7.5mg Take 1 tablet by mouth in the morning and 1 tablet in the evening. [facility] albuterol 2.5 mg /3 mL (0.083 %) nebulizer solution 10-22 00:00: 00 Yes [id number] 2.5mg Inhale 3 mL every 4 (four) hours as needed for Wheezing, Shortness of Breath or Bronchospa sm. [facility] bromphenira mine-pseudo ephedrine-D M (BROMFED DM) 2-30-10 mg/5 mL syrup 10-22 00:00: 00 Yes [id number] 10mL Take 10 mL by mouth 4 (four) times daily as needed for Cough, Cold symptoms or Congestion /Allergies . [facility] budesonide 1 mg/2 mL nebulizer solution 10-22 00:00: 00 11-02 04:59 :00 No [id number] 1mg Use 2 mL as directed in the morning and 2 mL in the evening. Do all this for 10 days. [facility] clopidogreL 75 mg tablet 10-17 00:00: 00 Yes [facility] ARIPiprazol e 5 mg tablet 10-14 00:00: 00 Yes 5mg Take 1 tablet by mouth every morning. [facility] benztropine 0.5 mg tablet 10-14 00:00: 00 Yes TAKE 1 TABLET BY MOUTH EVERY NIGHT. [facility] CORLANOR 7.5 mg tablet 10-14 00:00: 00 Yes TAKE 1 TABLET BY MOUTH 2 (TWO) TIMES A DAY, IN THE MORNING AND AT BEDTIME. [facility] FLUoxetine 20 mg capsule 10-06 00:00: 00 Yes TAKE 1 CAPSULE BY MOUTH 1 TIME EACH DAY. [facility] levoFLOXaci n 750 mg tablet 09-23 00:00: 00 09-27 04:59 :00 No [id number] 750mg Take 1 tablet by mouth every 24 (twenty-fo ur) hours for 3 days. [facility] Nitrofurant oin&Nit. Macrocryst 100 mg capsule 09-23 00:00: 00 09-23 00:00 :00 No [id number] 100mg Take 1 capsule by mouth in the morning and 1 capsule in the evening. Do all this for 5 days. [facility] LORazepam 0.5 mg tablet 08-05 00:00: 00 Yes PLEASE SEE ATTACHED FOR DETAILED DIRECTIONS [facility] FLUoxetine (PROzac) 20 MG capsule 08-05 00:00: 00 11-04 04:59 :00 No [id number] 20mg QD Take 1 capsule (20 mg total) by mouth 1 (one) time each day. [facility] ARIPiprazol e (Abilify) 20 MG tablet 08-05 00:00: 00 11-04 04:59 :00 No [id number] 20mg Take 1 tablet (20 mg total) by mouth every night. [facility] ARIPiprazol e (Abilify) 5 MG tablet 08-05 00:00: 00 11-04 04:59 :00 No [id number] 5mg Take 1 tablet (5 mg total) by mouth every morning. [facility] benztropine (Cogentin) 0.5 MG tablet 08-05 00:00: 00 11-04 04:59 :00 No [id number] .5mg Take 1 tablet (0.5 mg total) by mouth every night. [facility] clopidogrel (Plavix) 75 MG tablet -11 00:00: 00 Yes [id number] 75mg QD TAKE 1 TABLET (75 MG TOTAL) BY MOUTH 1 (ONE) TIME EACH DAY. [facility] diphenhydrA MINE (BENADryl) 25 MG tablet -10 10:04: 33 Yes QD Take by mouth at night if needed for itching. [facility] Corlanor 7.5 MG tablet - 00:00: 00 Yes [id number] 1{tbl} Q.5D TAKE 1 TABLET BY MOUTH 2 (TWO) TIMES A DAY, IN THE MORNING AND AT BEDTIME. [facility] ARIPiprazol e (Abilify) 20 MG tablet 05-07 00:00: 00 08-05 04:59 :00 No [id number] 20mg Take 1 tablet (20 mg total) by mouth every night. [facility] ARIPiprazol e (Abilify) 5 MG tablet -12 00:00: 00 08-05 04:59 :00 No [id number] 5mg Take 1 tablet (5 mg total) by mouth every morning. [facility] FLUoxetine (PROzac) 20 MG capsule -12 00:00: 00 08-05 04:59 :00 No [id number] 20mg QD Take 1 capsule (20 mg total) by mouth 1 (one) time each day. [facility] LORazepam (Ativan) 0.5 MG tablet 2022-03- 00:00: 00 Yes [id number] .25mg Take 0.5 tablets (0.25 mg total) by mouth 1 (one) time each day if needed (severe anxiety). May repeat once in 30 minutes if ineffectiv e. [facility] albuterol (PROVENTIL) 2.5 mg /3 mL (0.083 %) nebulizer solution 2.5 mg 11-26 17:15: 00 11-26 16:46 :00 No [id number] 2.5mg [facility] albuterol 90 mcg/actuati on inhaler 11-26 00:00: 00 Yes [id number] 2{puff} Inhale 2 Puffs every 6 (six) hours as needed for Wheezing. [facility] azithromyci n 500 mg tablet 11-26 00:00: 00 12-02 04:59 :00 No [id number] 500mg Take 1 tablet by mouth in the morning for 5 days. [facility] albuterol (2.5 MG/3ML) 0.083% nebulizer solution 11-23 00:00: 00 Yes [id number] USE 1 VIAL VIA NEBULIZER EVERY 6 HOURS NEEDED [facility] ciprofloxac in-dexameth asone 0.3-0.1 % otic drops 11-11 00:00: 00 10-22 00:00 :00 No [id number] 4[drp] Place 4 Drops in right ear in the morning and 4 Drops in the evening. [facility] LORazepam (Ativan) 0.5 MG tablet 08-14 00:00: 00 11-06 00:00 :00 No [id number] .25mg Take 0.5 tablets (0.25 mg total) by mouth 1 (one) time each day if needed (severe anxiety). May repeat once in 30 minutes if ineffectiv e. [facility] FLUoxetine (PROzac) 20 MG capsule 08-14 00:00: 00 11-06 00:00 :00 No [id number] 20mg QD Take 1 capsule (20 mg total) by mouth 1 (one) time each day. [facility] ARIPiprazol e (Abilify) 20 MG tablet 08-14 00:00: 00 11-06 00:00 :00 No [id number] 20mg Take 1 tablet (20 mg total) by mouth every night. [facility] ARIPiprazol e (Abilify) 5 MG tablet 08-14 00:00: 00 11-06 00:00 :00 No [id number] 5mg Take 1 tablet (5 mg total) by mouth 1 (one) time each day in the morning. [facility] sulfamethox azole-trime thoprim (Bactrim DS) 800-160 MG tablet 5- 00:00: 00 08-22 04:59 :00 No [id number] 1{tbl} Q.5D Take 1 tablet by mouth in the morning and 1 tablet in the evening. Do all this for 10 days. [facility] ARIPiprazol e (Abilify) 20 MG tablet 24 00:00: 00 08-14 00:00 :00 No [id number] 20mg Take 1 tablet (20 mg total) by mouth every night. [facility] clopidogrel (Plavix) 75 MG tablet 07-04 00:00: 00 07-04 00:00 :00 No [id number] 75mg QD Take 1 tablet (75 mg total) by mouth 1 (one) time each day. TK 1 T PO D [facility] clopidogrel (Plavix) 75 MG tablet 3- 00:00: 00 07-04 00:00 :00 No [id number] 75mg QD Take 1 tablet (75 mg total) by mouth 1 (one) time each day. TK 1 T PO D [facility] Ivabradine HCl (Corlanor) 7.5 MG tablet 2 00:00: 00 Yes [id number] 1{tbl} Q.5D Take 1 tablet by mouth in the morning and 1 tablet before bedtime. [facility] montelukast (Singulair) 10 MG tablet 2021-03 2- 00:00: 00 11-03 00:00 :00 No [id number] 10mg Take 1 tablet (10 mg total) by mouth every night. [facility] ketoconazol e (NIZOral) 2 % cream 2021-03 2- 00:00: 00 03-29 05:59 :00 No [id number] Q.5D Apply topically 2 (two) times a day for 7 days. [facility] LORazepam (Ativan) 0.5 MG tablet 2021-03 00:00: 00 08-14 00:00 :00 No [id number] .25mg Take 0.5 tablets (0.25 mg total) by mouth 1 (one) time each day if needed (severe anxiety). May repeat once in 30 minutes if ineffectiv e. [facility] FLUoxetine (PROzac) 20 MG capsule 2021-03 00:00: 00 08-14 00:00 :00 No [id number] 20mg QD Take 1 capsule (20 mg total) by mouth 1 (one) time each day. [facility] ARIPiprazol e (Abilify) 20 MG tablet 2021-03 00:00: 00 05-23 05:59 :00 No [id number] 20mg Take 1 tablet (20 mg total) by mouth every night. [facility] ARIPiprazol e (Abilify) 5 MG tablet 2021-03 00:00: 00 05-23 05:59 :00 No [id number] 5mg Take 1 tablet (5 mg total) by mouth 1 (one) time each day in the morning. [facility] furosemide (Lasix) 20 MG tablet 2021-03 00:00: 00 Yes [id number] 20mg QD Take 1 tablet (20 mg total) by mouth 1 (one) time each day. [facility] ofloxacin (Floxin) 0.3 % otic solution 12-23 00:00: 00 12-31 04:59 :00 No [id number] 4[drp] Q.5D Administer 4 drops into each ear in the morning and 4 drops in the evening. Do all this for 7 days. [facility] Ivabradine HCl (Corlanor) 5 MG tablet 12-22 00:00: 00 Yes [id number] Take 5 mg by mouth 2 (two) times a day AND 2.5 mg 2 (two) times a day. [facility] diphenhydrA MINE (BENADryl) 25 MG tablet 12-20 13:06: 31 Yes QD Take by mouth at night if needed for itching. [facility] FLUoxetine (PROzac) 20 MG capsule 12-20 00:00: 00 03-21 05:59 :00 No [id number] 20mg QD Take 1 capsule (20 mg total) by mouth 1 (one) time each day. [facility] ARIPiprazol e (Abilify) 20 MG tablet 12-20 00:00: 00 03-21 05:59 :00 No [id number] 20mg Take 1 tablet (20 mg total) by mouth every night. [facility] ARIPiprazol e (Abilify) 5 MG tablet 12-20 00:00: 00 03-21 05:59 :00 No [id number] 5mg Take 1 tablet (5 mg total) by mouth 1 (one) time each day in the morning. [facility] azithromyci n (Zithromax) 250 MG tablet 12-16 00:00: 00 Yes TAKE 2 TABLETS BY MOUTH TODAY, THEN TAKE 1 TABLET DAILY FOR 4 DAYS [facility] diphenhydrA MINE (BENADryl) 25 MG tablet 11-04 11:24: 00 Yes QD Take by mouth at night if needed for itching. [facility] nystatin (Mycostatin ) cream 11-04 00:00: 00 11-12 04:59 :00 No [id number] Q.5D Apply topically 2 (two) times a day for 7 days. [facility] predniSONE (Deltasone) 20 MG tablet 11-04 00:00: 00 11-10 04:59 :00 No [id number] 40mg QD Take 2 tablets (40 mg total) by mouth 1 (one) time each day for 5 days. [facility] lurasidone (Latuda) 20 MG tablet 10-13 00:00: 00 Yes [id number] 20mg QD Take 1 tablet (20 mg total) by mouth 1 (one) time each day. With food. [facility] diazePAM (Valium) 2 MG tablet 10-13 00:00: 00 Yes [id number] TAKE 1 TABLET (2 MG TOTAL) BY MOUTH 1 (ONE) TIME EACH DAY IF NEEDED FOR ANXIETY. [facility] ARIPiprazol e (Abilify) 20 MG tablet 10-13 00:00: 00 01-12 04:59 :00 No [id number] 20mg QD Take 1 tablet (20 mg total) by mouth 1 (one) time each day. [facility] FLUoxetine (PROzac) 20 MG capsule 10-13 00:00: 00 01-12 04:59 :00 No [id number] 20mg QD Take 1 capsule (20 mg total) by mouth 1 (one) time each day. [facility] ARIPiprazol e (Abilify) 5 MG tablet 10-13 00:00: 00 11-13 04:59 :00 No [id number] 5mg QD Take 1 tablet (5 mg total) by mouth 1 (one) time each day. (Take with Aripiprazo le 20 mg to total aripripraz ole 25 mg daily). [facility] Ivabradine HCl (Corlanor) 5 MG tablet 09-07 00:00: 00 11-05 04:59 :00 No [id number] Take 2.5 mg by mouth 2 (two) times a day for 14 days, THEN 5 mg 2 (two) times a day for 14 days, THEN 7.5 mg 2 (two) times a day. [facility] ipratropium (Atrovent) 0.02 % nebulizer solution 09-06 00:00: 00 Yes [id number] .5mg Take 2.5 mL (0.5 mg total) by nebulizati on 4 (four) times a day if needed for wheezing or shortness of breath. [facility] albuterol (2.5 MG/3ML) 0.083% nebulizer solution 09-06 00:00: 00 Yes [id number] 2.5mg Q6H Take 3 mL (2.5 mg total) by nebulizati on every 6 (six) hours if needed for wheezing or shortness of breath. [facility] Ivabradine HCl (Corlanor) 5 MG tablet 09-01 00:00: 00 10-30 04:59 :00 No [id number] Take 2.5 mg by mouth 2 (two) times a day for 14 days, THEN 5 mg 2 (two) times a day for 14 days, THEN 7.5 mg 2 (two) times a day. [facility] [facility] Acetaminoph en Acetaminoph en 08-31 10:26: 00 Yes 650 Every 6 Hours as needed for Mild Pain (1-3) Or Fever>100. 8 [facility] Albuterol Sulfate (Ventolin Hfa) 90 Mcg HFA.AER.AD Albuterol Sulfate (Ventolin Hfa) 90 Mcg HFA.AER.AD 08-31 10:26: 00 Yes 0 Rt Q4h as needed for Shortness Of Breath [facility] Albuterol/I pratropium Nebulize Albuterol/I pratropium Nebulize 08-31 10:26: 00 Yes 3 Rt Q4h as needed for Shortness Of Breath [facility] Ascorbic Acid Ascorbic Acid 08-31 10:26: 00 Yes 500 Twice A Day [facility] Azithromyci n (Z-Jordan) 250 Mg TABLET Azithromyci n (Z-Jordan) 250 Mg TABLET 08-31 10:26: 00 Yes 500 Q24h [facility] Cholecalcif nick Cholecalcif nick 08-31 10:26: 00 Yes 400 Daily [facility] Docusate Sodium Docusate Sodium 08-31 10:26: 00 Yes 100 Three Times A Day [facility] Guaifenesin (Mucinex) 600 Mg TABLET.ER Guaifenesin (Mucinex) 600 Mg TABLET.ER 08-31 10:26: 00 Yes 600 Twice A Day [facility] Nirmatrelvi r/Ritonavir (Paxlovid Co-Pack (Eua)) 150 Mg X 2-100 Mg TABLET Nirmatrelvi r/Ritonavir (Paxlovid Co-Pack (Eua)) 150 Mg X 2-100 Mg TABLET 08-31 10:26: 00 Yes 3 Every 12 Hours [facility] Pantoprazol e Sod (Protonix) 40 Mg SUSP Pantoprazol e Sod (Protonix) 40 Mg SUSP 08-31 10:26: 00 Yes 40 Daily [facility] Zinc Sulfate Zinc Sulfate 08-31 10:26: 00 Yes 220 Daily [facility] Zinc Sulfate 220 (50 Zn) MG tablet 08-31 00:00: 00 Yes 1{tbl} QD Take 1 tablet by mouth 1 (one) time each day. [facility] pantoprazol e (ProtoNix) 40 MG packet 08-31 00:00: 00 Yes Daily [facility] zinc sulfate 1 MG/ML injection 08-31 00:00: 00 Yes Daily [facility] pantoprazol e (ProtoNix) 40 MG EC tablet 08-31 00:00: 00 Yes 40mg QD Take 40 mg by mouth 1 (one) time each day. [facility] Paxlovid 08-31 00:00: 00 11-03 00:00 :00 No 3{tbl} Q12H Take 3 tablets by mouth every 12 (twelve) hours. [facility] benzonatate (Tessalon) 200 MG capsule 08-25 00:00: 00 Yes TAKE ONE (1) CAPSULE(S) BY MOUTH EVERY EIGHT HOURS NEEDED FOR COUGH. [facility] diazePAM (Valium) 2 MG tablet 08-15 00:00: 00 Yes [id number] TAKE 1 TABLET (2 MG TOTAL) BY MOUTH 1 (ONE) TIME EACH DAY IF NEEDED FOR ANXIETY. [facility] Ivabradine HCl (Corlanor) 7.5 MG tablet 08-03 00:00: 00 Yes [id number] 1{tbl} Q.5D Take 1 tablet by mouth 2 (two) times a day. [facility] clopidogrel (Plavix) 75 MG tablet 08-03 00:00: 00 08-04 04:59 :00 No [id number] 75mg QD Take 1 tablet (75 mg total) by mouth 1 (one) time each day. TK 1 T PO D [facility] FLUoxetine (PROzac) 20 MG capsule 07-21 00:00: 00 10-20 04:59 :00 No [id number] 20mg QD Take 1 capsule (20 mg total) by mouth 1 (one) time each day. [facility] ARIPiprazol e (Abilify) 5 MG tablet 07-21 00:00: 00 10-20 04:59 :00 No [id number] 5mg QD Take 1 tablet (5 mg total) by mouth 1 (one) time each day. Take with aripiprazo le 20 mg to total 25 mg daily. [facility] ARIPiprazol e (Abilify) 20 MG tablet 07-20 00:00: 00 10-19 04:59 :00 No [id number] 20mg QD Take 1 tablet (20 mg total) by mouth 1 (one) time each day. [facility] diphenhydrA MINE (BENADryl) 25 MG tablet 05-24 09:43: 28 Yes QD Take by mouth at night if needed for itching. [facility] albuterol (2.5 MG/3ML) 0.083% nebulizer solution 11-15 00:00: 00 Yes [id number] 2.5mg Take 3 mL (2.5 mg total) by nebulizati on every 4 (four) hours if needed for wheezing or shortness of breath. [facility] ARIPiprazol e 10 MG Oral Tablet ARIPiprazol e 10 MG Oral Tablet 07-15 00:00: 00 Yes JOSELO VARGAS M.D. TAKE 1/2 TABLET BY MOUTH THREE TIMES DAILY AND 1/2 TABLET BY MOUTH EVERY NIGHT AT BEDTIME NEEDED [facility] Azithromyci n 250 MG Oral Tablet Azithromyci n 250 MG Oral Tablet 3-15 00:00: 00 Yes FOZIA SIDHU M.D. TAKE 2 TABLETS ON DAY 1 THEN TAKE 1 TABLET A DAY FOR 4 DAYS. [facility] Omeprazole 40 MG Oral Capsule Delayed Release Omeprazole 40 MG Oral Capsule Delayed Release 1-20 00:00: 00 Yes FOZIA SIDHU M.D. Q0.5D TAKE 1 CAPSULE TWICE DAILY 30-60 minutes before a protein-co ntaining meal [facility] Fluticasone Propionate 50 MCG/ACT Nasal Suspension Fluticasone Propionate 50 MCG/ACT Nasal Suspension 4-03 00:00: 00 Yes FOZIA SIDHU M.D. QD USE 2 SPRAYS IN EACH NOSTRIL ONCE DAILY [facility] Corlanor 7.5 MG Oral Tablet Corlanor 7.5 MG Oral Tablet 4- 00:00: 00 Yes FOZIA SIDHU M.D. 1 and half tablet PO BID [facility] Nystatin-Tr iamcinolone 533527-0.1 UNIT/GM-% External Cream Nystatin-Tr iamcinolone [id number] UNIT/GM-% External Cream 2018-03 008 00:00: 00 [...] TAKE 1 TABLET DAILY. [facility] Plavix TABS Plavix TABS Yes [facility] Aripiprazol e (Abilify) 5 Mg TABLET Aripiprazol e (Abilify) 5 Mg TABLET Yes 5 Before Lunch [facility] Aripiprazol e (Abilify*) 20 Mg TABLET Aripiprazol e (Abilify*) 20 Mg TABLET Yes 20 Bedtime [facility] Clopidogrel Bisulfate (Plavix) 75 Mg TABLET Clopidogrel Bisulfate (Plavix) 75 Mg TABLET Yes 75 Daily [facility] Fluoxetine Hcl Fluoxetine Hcl Yes 20 Daily [facility] Ivabradine Hcl (Corlanor) 7.5 Mg TABLET Ivabradine Hcl (Corlanor) 7.5 Mg TABLET Yes 7.5 Twice A Day [facility] Immunizations Ordered Immunization Name Filled Immunization Name Date Status Comments Source Influenza Virus Vaccine Quad IM, Preserv and ABX Free 6 MO-64 YRS (FLUCELVAX) 2023-12-25 00:00:00 Completed [facility] Fluzone Quadrivalent 0.5 ML Intramuscular Suspension Prefilled [...] Value Comments S ource Systolic blood pressure 2024-07-23 22:51:38 110 mm[Hg] [facility] Diastolic blood pressure 2024-07-23 22:51:38 74 mm[Hg] [facility] Heart rate 2024-07-23 22:51:38 65 /min [facility] Body temperature 2024-07-23 22:51:38 36.28 Ying [facility] Respiratory rate 2024-07-23 22:51:38 18 /min [facility] Oxygen saturation in Arterial blood by Pulse oximetry 2024-07-23 22:51:38 98 /min [facility] Body height 2024-07-23 16:58:00 172.7 cm [facility] Body weight 2024-07-23 16:58:00 68.04 kg [facility] BMI 2024-07-23 16:58:00 22.81 kg/m2 [facility] Systolic blood pressure 2024-07-18 14:16:00 91 mm[Hg] [facility] Diastolic blood pressure 2024-07-18 14:16:00 57 mm[Hg] [facility] Heart rate 2024-07-18 14:16:00 56 /min [facility] Body temperature 2024-07-18 14:16:00 36.67 Ying [facility] Respiratory rate 2024-07-18 14:16:00 18 /min [facility] Body height 2024-07-18 14:16:00 172.7 cm [facility] Body weight 2024-07-18 14:16:00 70.761 kg [facility] BMI 2024-07-18 14:16:00 23.72 kg/m2 [facility] Oxygen saturation in Arterial blood by Pulse oximetry 2024-07-18 14:16:00 98 /min [facility] Systolic blood pressure 2024-06-06 15:51:00 92 mm[Hg] [facility] Diastolic blood pressure 2024-06-06 15:51:00 57 mm[Hg] [facility] Heart rate 2024-06-06 15:51:00 50 /min [facility] Respiratory rate 2024-06-06 15:51:00 20 /min [facility] Body height 2024-06-06 15:51:00 172.7 cm [facility] Body weight 2024-06-06 15:51:00 68.04 kg [facility] BMI 2024-06-06 15:51:00 22.81 kg/m2 [facility] Oxygen saturation in Arterial blood by Pulse oximetry 2024-06-06 15:51:00 100 /min [facility] Systolic blood pressure 2024-03-03 18:05:00 94 mm[Hg] [facility] Diastolic blood pressure 2024-03-03 18:05:00 59 mm[Hg] [facility] Heart rate 2024-03-03 18:05:00 60 /min [facility] Respiratory rate 2024-03-03 18:05:00 18 /min [facility] Body height 2024-03-03 18:05:00 172.7 cm [facility] Body weight 2024-03-03 18:05:00 69.083 kg [facility] BMI 2024-03-03 18:05:00 23.16 kg/m2 [facility] Oxygen saturation in Arterial blood by Pulse oximetry 2024-03-03 18:05:00 99 /min [facility] Systolic blood pressure 2024-01-21 19:06:00 125 mm[Hg] [facility] Diastolic blood pressure 2024-01-21 19:06:00 74 mm[Hg] [facility] Heart rate 2024-01-21 19:06:00 58 /min [facility] Respiratory rate 2024-01-21 19:06:00 18 /min [facility] Body height 2024-01-21 19:06:00 172.7 cm [facility] Oxygen saturation in Arterial blood by Pulse oximetry 2024-01-21 19:06:00 100 /min [facility] Systolic blood pressure 2023-10-23 19:17:00 93 mm[Hg] [facility] Diastolic blood pressure 2023-10-23 19:17:00 59 mm[Hg] [facility] Heart rate 2023-10-23 19:16:00 72 /min [facility] Body temperature 2023-10-23 19:16:00 37.17 Ying [facility] Respiratory rate 2023-10-23 19:16:00 14 /min [facility] Body weight 2023-10-23 19:16:00 72.122 kg [facility] BMI 2023-10-23 19:16:00 24.18 kg/m2 [facility] Oxygen saturation in Arterial blood by Pulse oximetry 2023-10-23 19:16:00 96 /min [facility] Systolic blood pressure 2023-09-24 19:18:00 103 mm[Hg] [facility] Diastolic blood pressure 2023-09-24 19:18:00 63 mm[Hg] [facility] Heart rate 2023-09-24 19:18:00 63 /min [facility] Body temperature 2023-09-24 19:18:00 36.56 Ying [facility] Respiratory rate 2023-09-24 19:18:00 20 /min [facility] Body weight 2023-09-24 19:18:00 72.53 kg [facility] BMI 2023-09-24 19:18:00 24.31 kg/m2 [facility] Oxygen saturation in Arterial blood by Pulse oximetry 2023-09-24 19:18:00 95 /min [facility] Systolic blood pressure 2023-07-04 15:06:00 108 mm[Hg] [facility] Diastolic blood pressure 2023-07-04 15:06:00 73 mm[Hg] [facility] Heart rate 2023-07-04 15:06:00 65 /min [facility] Body height 2023-07-04 15:06:00 172.7 cm [facility] Body weight 2023-07-04 15:06:00 87.091 kg [facility] BMI 2023-07-04 15:06:00 29.19 kg/m2 [facility] Systolic blood pressure 2022-11-26 16:24:00 91 mm[Hg] [facility] Diastolic blood pressure 2022-11-26 16:24:00 60 mm[Hg] [facility] Body weight 2022-11-26 16:24:00 79.379 kg [facility] BMI 2022-11-26 16:24:00 26.61 kg/m2 [facility] Heart rate 2022-11-26 16:05:00 69 /min [facility] Body temperature 2022-11-26 16:05:00 36.72 Ying [facility] Respiratory rate 2022-11-26 16:05:00 20 /min [facility] Oxygen saturation in Arterial blood by Pulse oximetry 2022-11-26 16:05:00 99 /min [facility] Systolic blood pressure 2022-11-11 20:31:00 108 mm[Hg] [facility] Diastolic blood pressure 2022-11-11 20:31:00 79 mm[Hg] [facility] Heart rate 2022-11-11 20:31:00 63 /min [facility] Body temperature 2022-11-11 20:31:00 36.72 Ying [facility] Respiratory rate 2022-11-11 20:31:00 18 /min [facility] Body height 2022-11-11 20:31:00 172.7 cm [facility] Body weight 2022-11-11 20:31:00 79.379 kg [facility] BMI 2022-11-11 20:31:00 26.61 kg/m2 [facility] Oxygen saturation in Arterial blood by Pulse oximetry 2022-11-11 20:31:00 98 /min [facility] Systolic blood pressure 2022-08-11 18:19:00 108 mm[Hg] [...] [facility] Body temperature 2022-03-21 19:52:00 36.67 Ying [facility] Respiratory rate 2022-03-21 19:52:00 16 /min [facility] Body height 2022-03-21 19:52:00 172.7 cm [facility] Body weight 2022-03-21 19:52:00 87.091 kg [facility] BMI 2022-03-21 19:52:00 29.19 kg/m2 [facility] Systolic blood pressure 2021-12-23 13:16:00 98 mm[Hg] [facility] Diastolic blood pressure 2021-12-23 13:16:00 68 mm[Hg] [facility] Body temperature 2021-12-23 13:16:00 36.11 Ying [facility] Respiratory rate 2021-12-23 13:16:00 16 /min [facility] Systolic blood pressure 2021-11-04 16:25:00 104 mm[Hg] [facility] Diastolic blood pressure 2021-11-04 16:25:00 71 mm[Hg] [facility] Heart rate 2021-11-04 16:25:00 64 /min [facility] Body temperature 2021-11-04 16:25:00 36.33 Ying [facility] Respiratory rate 2021-11-04 16:25:00 16 /min [facility] Body height 2021-11-04 16:25:00 172.7 cm [facility] Body weight 2021-11-04 16:25:00 94.972 kg [facility] BMI 2021-11-04 16:25:00 31.84 kg/m2 [facility] Oxygen saturation by Pulse oximetry 2021-08-31 13:10:00 98 /min [facility] BP Diastolic 2021-08-31 13:10:00 84 mm[Hg] [facility] Oxygen saturation by Pulse oximetry 2021-08-31 10:40:00 97 /min [facility] BP Diastolic 2021-08-31 10:40:00 70 mm[Hg] [facility] Oxygen saturation by Pulse oximetry 2021-08-31 10:02:00 97 /min [facility] BP Diastolic 2021-08-31 10:02:00 70 mm[Hg] [facility] Oxygen saturation by Pulse oximetry 2021-08-31 08:05:00 96 /min [facility] Oxygen saturation by Pulse oximetry 2021-08-31 07:50:00 96 /min [facility] Oxygen saturation by Pulse oximetry 2021-08-31 05:35:00 96 /min [facility] BP Diastolic 2021-08-31 05:35:00 74 mm[Hg] [facility] Oxygen saturation by Pulse oximetry 2021-08-31 02:20:00 99 /min [facility] Oxygen saturation by Pulse oximetry 2021-08-31 02:05:00 97 /min [facility] Oxygen saturation by Pulse oximetry 2021-08-31 01:00:00 95 /min [facility] BP Diastolic 2021-08-31 01:00:00 70 mm[Hg] [facility] Oxygen saturation by Pulse oximetry 2021-08-30 22:00:00 98 /min [facility] BP Diastolic 2021-08-30 22:00:00 72 mm[Hg] [facility] Oxygen saturation by Pulse oximetry 2021-08-30 21:00:00 98 /min [facility] BP Diastolic 2021-08-30 21:00:00 72 mm[Hg] [facility] Oxygen saturation by Pulse oximetry 2021-08-30 20:25:00 99 /min [facility] Oxygen saturation by Pulse oximetry 2021-08-30 20:10:00 97 /min [facility] Oxygen saturation by Pulse oximetry 2021-08-30 17:15:00 99 /min [facility] BP Diastolic 2021-08-30 17:15:00 64 mm[Hg] [facility] Oxygen saturation by Pulse oximetry 2021-08-30 14:47:00 100 /min [facility] Oxygen saturation by Pulse oximetry 2021-08-30 14:32:00 96 /min [facility] Oxygen saturation by Pulse oximetry 2021-08-30 12:56:00 95 /min [facility] BP Diastolic 2021-08-30 12:56:00 66 mm[Hg] [facility] Oxygen saturation by Pulse oximetry 2021-08-30 09:50:00 97 /min [facility] BP Diastolic 2021-08-30 09:50:00 76 mm[Hg] [facility] Oxygen saturation by Pulse oximetry 2021-08-30 09:07:00 97 /min [facility] BP Diastolic 2021-08-30 09:07:00 76 mm[Hg] [facility] Oxygen saturation by Pulse oximetry 2021-08-30 08:26:00 100 /min [facility] Oxygen saturation by Pulse oximetry 2021-08-30 08:11:00 96 /min [facility] Oxygen saturation by Pulse oximetry 2021-08-30 05:00:00 97 /min [facility] BP Diastolic 2021-08-30 05:00:00 61 mm[Hg] [facility] Oxygen saturation by Pulse oximetry 2021-08-30 01:43:00 98 /min [facility] Oxygen saturation by Pulse oximetry 2021-08-30 01:35:00 95 /min [facility] Oxygen saturation by Pulse oximetry 2021-08-30 01:00:00 94 /min [facility] BP Diastolic 2021-08-30 01:00:00 84 mm[Hg] [facility] Oxygen saturation by Pulse oximetry 2021-08-29 22:00:00 97 /min [facility] BP Diastolic 2021-08-29 22:00:00 84 mm[Hg] [facility] Oxygen saturation by Pulse oximetry 2021-08-29 21:00:00 97 /min [facility] BP Diastolic 2021-08-29 21:00:00 84 mm[Hg] [facility] Oxygen saturation by Pulse oximetry 2021-08-29 20:48:00 99 /min [facility] Oxygen saturation by Pulse oximetry 2021-08-29 20:40:00 97 /min [facility] Oxygen saturation by Pulse oximetry 2021-08-29 18:26:00 100 /min [facility] BP Diastolic 2021-08-29 18:26:00 77 mm[Hg] [facility] Oxygen saturation by Pulse oximetry 2021-08-29 13:47:00 99 /min [facility] Oxygen saturation by Pulse oximetry 2021-08-29 13:37:00 94 /min [facility] Oxygen saturation by Pulse oximetry 2021-08-29 13:31:00 100 /min [facility] BP Diastolic 2021-08-29 13:31:00 76 mm[Hg] [facility] Oxygen saturation by Pulse oximetry 2021-08-29 09:25:00 100 /min [facility] BP Diastolic 2021-08-29 09:25:00 87 mm[Hg] [facility] Oxygen saturation by Pulse oximetry 2021-08-29 09:04:00 100 /min [facility] BP Diastolic 2021-08-29 09:04:00 87 mm[Hg] [facility] Oxygen saturation by Pulse oximetry 2021-08-29 07:25:00 99 /min [facility] Oxygen saturation by Pulse oximetry 2021-08-29 07:15:00 97 /min [facility] Oxygen saturation by Pulse oximetry 2021-08-29 05:00:00 93 /min [facility] BP Diastolic 2021-08-29 05:00:00 77 mm[Hg] [facility] Oxygen saturation by Pulse oximetry 2021-08-29 01:50:00 98 /min [facility] Oxygen saturation by Pulse oximetry 2021-08-29 01:35:00 95 /min [facility] Oxygen saturation by Pulse oximetry 2021-08-29 01:00:00 95 /min [facility] BP Diastolic 2021-08-29 01:00:00 74 mm[Hg] [facility] Oxygen saturation by Pulse oximetry 2021-08-28 23:14:00 95 /min [facility] BP Diastolic 2021-08-28 23:14:00 72 mm[Hg] [facility] Oxygen saturation by Pulse oximetry 2021-08-28 21:00:00 95 /min [facility] BP Diastolic 2021-08-28 21:00:00 72 mm[Hg] [facility] Oxygen saturation by Pulse oximetry 2021-08-28 20:22:00 96 /min [facility] Oxygen saturation by Pulse oximetry 2021-08-28 18:05:00 98 /min [facility] Oxygen saturation by Pulse oximetry 2021-08-28 18:04:00 97 /min [facility] Oxygen saturation by Pulse oximetry 2021-08-28 17:55:00 98 /min [facility] Oxygen saturation by Pulse oximetry 2021-08-28 17:14:00 94 /min [facility] BP Diastolic 2021-08-28 17:14:00 78 mm[Hg] [facility] Oxygen saturation by Pulse oximetry 2021-08-28 13:26:00 97 /min [facility] BP Diastolic 2021-08-28 13:26:00 74 mm[Hg] [facility] Oxygen saturation by Pulse oximetry 2021-08-28 10:15:00 99 /min [facility] BP Diastolic 2021-08-28 10:15:00 72 mm[Hg] [facility] Oxygen saturation by Pulse oximetry 2021-08-28 09:22:00 99 /min [facility] BP Diastolic 2021-08-28 09:22:00 72 mm[Hg] [facility] Oxygen saturation by Pulse oximetry 2021-08-28 08:09:00 96 /min [facility] Oxygen saturation by Pulse oximetry 2021-08-28 08:07:00 97 /min [facility] Oxygen saturation by Pulse oximetry 2021-08-28 08:00:00 97 /min [facility] Oxygen saturation by Pulse oximetry 2021-08-28 05:00:00 93 /min [facility] BP Diastolic 2021-08-28 05:00:00 69 mm[Hg] [facility] Oxygen saturation by Pulse oximetry 2021-08-28 01:09:00 99 /min [facility] Oxygen saturation by Pulse oximetry 2021-08-28 01:00:00 96 /min [facility] BP Diastolic 2021-08-28 01:00:00 76 mm[Hg] [facility] Oxygen saturation by Pulse oximetry 2021-08-28 00:00:00 96 /min [facility] BP Diastolic 2021-08-28 00:00:00 67 mm[Hg] [facility] Oxygen saturation by Pulse oximetry 2021-08-27 21:00:00 96 /min [facility] BP Diastolic 2021-08-27 21:00:00 67 mm[Hg] [facility] Oxygen saturation by Pulse oximetry 2021-08-27 20:28:00 98 /min [facility] Oxygen saturation by Pulse oximetry 2021-08-27 20:20:00 95 /min [facility] Height 2021-08-27 19:16:00 170.512939 cm [facility] Weight 2021-08-27 19:16:00 92.976192 kg [facility] BMI (Body Mass Index) 2021-08-27 19:16:00 32.1 kg/m2 [facility] Oxygen saturation by Pulse oximetry 2021-08-27 16:56:00 97 /min [facility] BP Diastolic 2021-08-27 16:56:00 81 mm[Hg] [facility] Oxygen saturation by Pulse oximetry 2021-08-27 15:36:00 96 /min [facility] BP Diastolic 2021-08-27 15:36:00 78 mm[Hg] [facility] Oxygen saturation by Pulse oximetry 2021-08-27 15:33:00 96 /min [facility] BP Diastolic 2021-08-27 15:33:00 78 mm[Hg] [facility] Oxygen saturation by Pulse oximetry 2021-08-27 14:37:00 96 /min [facility] BP Diastolic 2021-08-27 14:37:00 78 mm[Hg] [facility] Oxygen saturation by Pulse oximetry 2021-08-27 12:50:00 98 /min [facility] Oxygen saturation by Pulse oximetry 2021-08-27 12:49:00 97 /min [facility] Oxygen saturation by Pulse oximetry 2021-08-27 12:40:00 97 /min [facility] Oxygen saturation by Pulse oximetry 2021-08-27 09:00:00 98 /min [facility] BP Diastolic 2021-08-27 09:00:00 80 mm[Hg] [facility] Systolic blood pressure 2019-08-04 11:18:00 100 mm[Hg] Location: RUE; Position: Sitting [facility] Diastolic blood pressure 2019-08-04 11:18:00 62 mm[Hg] Location: RUE; Position: Sitting [facility] Body height 2019-08-04 11:18:00 68 [in_us] [...] Rate 2017-08-06 10:29:00 16 /min Quality: Normal [facility] O2 SAT 2017-08-06 10:29:00 99 % Source: RA [facility] BP Systolic 2017-07-27 10:36:00 110 mm[Hg] [...] /min Location: R Brachial Artery; Quality: Normal [facility] Respiration Rate 2017-07-27 10:36:00 16 /min Quality: Normal [facility] Procedures Procedure Date / Time Performed Performing Clinician Source TROPONIN I 2024-07-23 20:10:00 Ondina Boland [facility] XR CHEST 2 VW 2024-07-23 18:47:00 Ondina Boland [facility] TROPONIN I 2024-07-23 18:14:00 Ondina Boland [facility] COMP. METABOLIC PANEL (78453) 2024-07-23 18:14:00 Ondina Boland [facility] CBC WITH DIFF 2024-07-23 18:14:00 Ondina Boland [facility] N-TERMINAL PRO-BNP 2024-07-23 18:14:00 Ondina Walters [facility] MR CERVICAL SPINE WO CONTRAST 2024-06-25 18:51:38 Gurpreet Valencia [facility] POCT SARS-COV-2 ANTIGEN (BINAX NOW) 2023-10-23 19:59:00 Amina Jordan [facility] POCT URINALYSIS 2023-09-24 19:50:00 Amina Jordan [facility] CARDIAC EVENT MONITOR 2023-07-19 16:39:48 Patter son, [facility] ECG 12-LEAD 2023-07-04 19:37:[facility] 2023-07-04 19:37:25 [facility] COMPREHENSIVE METABOLIC PANEL 2023-07-04 16:50:00 Bray, [facility] HEMOGLOBIN A1C 2023-07-04 16:50:00 Bray, [facility] MAGNESIUM 2023-07-04 16:50:00 Bray, [facility] PHOSPHORUS 2023-07-04 16:50:00 [facility] CBC AND DIFFERENTIAL 2023-07-04 16:50:00 Patters on, [facility] THYROID PANEL WITH TSH 2023-07-04 16:50:00 Gabriel Giraldo [facility] XR CHEST 2 VW 2022-11-26 16:48:00 [facility] 2022-11-26 16:38:00 Unknown, Attend ing [facility] POCT MOLECULAR STREP 2022-11-26 16:36:00 Unknown, Atte nding [facility] POCT SARS-COV-2 ANTIGEN (BINAX NOW) 2022-11-26 16:05:00 Lawrence Barfield [facility] CONSENT/REFUSAL FOR DIAGNOSIS AND TREATMENT 2022-11-11 20:22:06 Doctor Unassigned, [place] [facility] XR KNEE 4+ VIEWS RIGHT 2021-11-04 18:38:56 Krista Samuel [facility] X-ray of chest, two views 2021-08-31 00:00:00 [facility] [QL] CMP W/EGFR 2019-10-20 00:00:00 [facility] MRI Spine lumbar wo contrast [id number] 2019-10-20 00:00:00 [facility] . [facility] - PAP 2019-05-02 00:00:00 [facility] [[facility]] CULTURE, URINE, ROUTINE 2019-05-02 00:00:00 [facility] [[facility]] URINALYSIS, COMPLETE 2019-05-02 00:00:00 [facility] US Pelvis with Pelvis Transvaginal [id number] 2019-04-15 00:00:00 [facility] [[facility]] CULTURE, URINE, ROUTINE 2018-12-31 00:00:00 [facility] [[facility]] URINALYSIS, COMPLETE 2018-12-03 00:00:00 [facility] [[facility]] CULTURE, URINE, ROUTINE 2018-12-03 00:00:00 [facility] [N] 2D Echo complete, with Doppler [id number] 2018-11-26 00:00:00 [facility] [[facility]] CMP W/EGFR 2018-04-23 00:00:00 [facility] [[facility]] LIPID PANEL 2018-04-23 00:00:00 [facility] [[facility]] TSH, 3RD GENERATION W/REFLEX TO FT4 2018-04-23 00:00:00 [facility] [[facility]] CBC (INCLUDES DIFF/PLT) 2018-04-23 00:00:00 [facility] [QL] HEMOGLOBIN A1c 2018-04-23 00:00:00 [facility] [QL] URINALYSIS, COMPLETE 2017-11-30 00:00:00 [facility] [QL] CULTURE, URINE, ROUTINE 2017-11-30 00:00:00 [facility] US Pelvis Transvaginal [id number] 2017-11-30 00:00:00 [facility] History of Appendectomy [facility] History of Cholecystectomy [facility] History of Oophorectomy [facility] Plan of Care Planned Activity Planned Date Details Comments Source Diagnostic Test Pending 2018-12-17 00:00:00 [N] 2D Echo complete, with Doppler 90613 [code = [N] 2D Echo complete, with Doppler 19410] [facility] Instructions Bradycardia, Adult [facility] Instructions COVID-19: What t o Do If You Are Sick - FORMERLY NAMED [facility] (03/02/2021) [facility] Encounters Start Date/Time End Date/Time Encounter Type Admission Type Attending Clinicians Care Facility Care Department Encounter ID Source 2024-06-16 09:03:01 Outpatient No, PCP CLS [id number] [id number] [place] [facility] 2022-09-25 15:24:44 Outpatient [facility] [id number] [facility] 2022-09-07 14:39:03 Outpatient [facility] [id number] [facility] 2022-08-18 18:03:14 Outpatient [facility] [id number] [facility] 2022-08-14 08:50:00 Outpatient [facility] [id number] [facility] 2022-08-11 13:01:14 Outpatient [facility] [id number] [facility] 2022-08-09 06:27:55 Outpatient [facility] [id number] [facility] 2022-07-14 12:02:17 Outpatient [facility] [id number] [facility] 2022-07-05 09:10:34 Outpatient [facility] [id number] [facility] 2022-07-03 12:49:26 Outpatient [facility] [id number] [facility] 2022-06-12 01:00:03 Outpatient [facility] [id number] [facility] 2022-05-05 14:53:16 Outpatient [facility] [id number] [facility] 2022-04-21 13:19:28 Outpatient [facility] [id number] [facility] 2022-04-03 09:54:00 Outpatient [facility] [id number] [facility] 2022-03-07 14:20:29 Outpatient [facility] [id number] [facility] 2022-01-13 10:01:15 Outpatient [facility] [id number] [facility] 2021-05-24 09:33:07 Outpatient MK NUNEZ [facility] [id number] [facility] 2021-05-20 07:40:38 Outpatient GEORGEJAI SOLIMAN [facility] [id number] [facility] 2021-05-19 11:18:59 Outpatient MK NUNEZ [facility] [id number] [facility] 2021-04-14 14:58:36 Outpatient MK NUNEZ [facility] [id number] [facility] 2021-02-01 15:47:47 Outpatient MARK CLEMONS [facility] [id number] [facility] 2021-01-20 13:22:10 Outpatient MK NUNEZ [facility] [id number] [facility] 2021-01-18 09:09:29 Outpatient CEDENONATHALIA BISHOP [facility] [id number] [facility] 2020-09-14 12:17:06 Outpatient BLADIMIR CORBETT [facility] [id number] [facility] 2020-09-14 12:03:08 Outpatient JOSELO VARGAS [facility] [id number] [facility] 2020-08-19 11:51:51 Outpatient [facility] [id number] [facility] 2020-08-19 11:48:03 Outpatient CHERY BRYON [facility] [id number] [facility] 2020-08-19 11:39:27 Outpatient [facility] [id number] [facility] 2020-08-10 10:51:30 Outpatient JOSELO VARGAS [facility] [id number] [facility] 2020-08-04 08:20:39 Outpatient DAVID CAVAZOS [facility] [id number] [facility] 2020-07-31 02:52:05 Outpatient [facility] [id number] [facility] 2024-07-23 12:00:00 2024-07-23 17:53:00 Emergency X ONDINA BOLAND ERIN [facility] ERT [id number] [facility] 2024-07-23 12:00:00 2024-07-23 17:53:00 Emergency Ondina Boland [facility] 1.2840.114 350.1.13.10 4.2.7.2.686 [id number] [facility] 2024-07-23 00:00:00 2024-07-23 13:21:57 [facility] 1.2840.114 350.1.13.10 4.2.7.2.686 [id number] [facility] 2024-07-21 00:00:00 2024-07-22 11:38:18 [facility] 1.2840.114 350.1.13.10 4.2.7.2.686 [id number] [facility] 2024-07-21 00:00:00 2024-07-21 15:56:23 [facility] 1.2840.114 350.1.13.10 4.2.7.2.686 [id number] [facility] 2024-07-20 00:00:00 2024-07-20 22:29:03 Nurse Triage Aimee Amanda Jenny L [facility] 1.2840.114 350.1.13.10 4.2.7.2.686 [id number] [facility] 2024-07-18 10:15:00 2024-07-18 10:30:00 Paper Maker Visit Draw, [facility] Jayy Kay Draw, [facility] MEDICAL OFFICE BUILDING 1.2.840.114 350.1.13.10 4.2.7.2.686 [id number] [facility] 2024-07-18 10:15:00 2024-07-18 10:15:00 Outpatient R JAYY KAY [facility] [id number] [facility] 2024-07-18 09:30:00 2024-07-18 10:00:00 Office Visit Jayy Kay [facility] MEDICAL OFFICE BUILDING 1.2.840.114 350.1.13.10 4.2.7.2.686 [id number] [facility] 2024-07-16 00:00:00 2024-07-17 10:40:[address] [facility] MEDICAL OFFICE BUILDING 1.2.840.114 350.1.13.10 4.2.7.2.686 [id number] [facility] 2024-07-09 13:17:32 2024-07-09 23:59:00 Outpatient R JAYY KAY [facility] [id number] [facility] 2024-07-09 13:17:32 2024-07-09 23:59:00 Hospital Encounter Jayy Kay [facility] MEDICAL OFFICE BUILDING 1.2.840.114 350.1.13.10 4.2.7.2.686 [id number] [facility] 2024-06-25 12:56:10 2024-06-25 23:59:00 Outpatient GURPREET MELENDEZ HOWARD [facility] [id number] [facility] 2024-06-25 12:56:10 2024-06-25 23:59:00 Hospital Encounter Gurpreet Valencia [facility] 1..840.114 350.1.13.10 4.2.7.2.686 [id number] [facility] 2024-06-20 10:00:00 2024-06-20 10:00:00 Outpatient JAYY BAILEY [facility] [id number] [facility] 2024-06-06 10:40:00 2024-06-06 11:31:25 Outpatient GURPREET MELENDEZ HOWARD [facility] [id number] [facility] 2024-06-06 10:40:00 2024-06-06 11:31:25 Office Visit Gurpreet Valencia Robbie [facility] 1..840.114 350.1.13.10 4.2.7.2.686 [id number] [facility] 2024-06-02 10:30:00 2024-06-02 10:46:28 Outpatient AJYY BAILEY [facility] [id number] [facility] 2024-05-20 12:40:00 2024-05-20 12:40:00 Outpatient GURPREET MELENDEZ HOWARD [facility] [id number] [facility] 2024-04-28 13:21:13 2024-04-28 13:21:13 Outpatient [facility] [id number] Adriel Schaffer Haim 2024-04-21 00:00:00 2024-04-25 09:40:02 Telephone Rolando Gurpreet [facility]?KIYAAce [facility] MEDICAL OFFICE BUILDING 1.2.840.114 350.1.13.10 4.2.7.2.686 [id number] [facility] 2024-03-07 16:41:13 2024-03-07 23:59:00 Outpatient Debbie GURPREET VALENCIA HOWARD [facility] [id number] [facility] 2024-03-07 16:41:13 2024-03-07 23:59:00 Hospital Encounter Gurpreet Valencia [facility] 1.2.840.114 350.1.13.10 4.2.7.2.686 [id number] [facility] 2024-03-04 17:40:00 2024-03-04 17:40:00 Outpatient JENNIFEREDNA VLADIMIR [facility] [id number] [facility] 2024-03-03 12:20:00 2024-03-03 15:33:56 Outpatient Debbie GURPREET VALENCIA HOWARD [facility] [id number] [facility] 2024-03-03 12:20:00 2024-03-03 15:33:56 Office Visit [facility] 1.2.840.114 350.1.13.10 4.2.7.2.686 [id number] [facility] 2024-02-27 13:20:03 2024-02-27 13:20:03 Outpatient SFA ALVARADO [id number] Adriel Whitmore 2024-02-11 11:30:00 2024-02-11 11:30:00 Outpatient JAYY BAILEY [facility] [id number] [facility] 2024-02-07 13:40:00 2024-02-07 13:40:00 Outpatient JAI SAMUEL [facility] [id number] [facility] 2024-01-30 13:19:08 2024-01-30 13:19:08 Outpatient [facility]FA [facility] [id number] Adriel Whitmore 2024-01-21 00:00:00 2024-01-22 11:24:09 [facility] 1.2.840.114 350.1.13.10 4.2.7.2.686 [id number] [facility] 2024-01-21 14:00:00 2024-01-21 14:30:00 Office Visit Tj Mccarthy [facility] MEDICAL OFFICE BUILDING 1.2.840.114 350.1.13.10 4.2.7.2.686 [id number] [facility] 2024-01-21 14:00:00 2024-01-21 14:00:00 Outpatient R TJ [facility]Y [facility] [id number] [facility] 2023-12-04 17:40:00 2023-12-04 17:42:28 Outpatient VLADIMIR NATHAN [facility] [id number] [facility] 2023-12-03 17:20:00 2023-12-03 17:20:00 Outpatient VLADIMIR NATHAN [facility] [id number] [facility] 2023-11-27 14:00:00 2023-11-27 14:00:00 Outpatient MIRTA LEDESMA [facility] [id number] [facility] 2023-11-07 17:40:00 2023-11-07 18:06:17 Outpatient VLADIMIR NATHAN [facility] [id number] [facility] 2023-10-25 00:00:00 2023-10-25 14:17:09 [facility] 1.2.840.114 350.1.13.10 4.2.7.2.686 [id number] [facility] 2023-10-24 00:00:00 2023-10-24 14:51:22 Letter (Out) Cassie Cheek [facility] 1.2.840.114 350.1.13.10 4.2.7.2.686 [id number] [facility] 2023-10-24 14:00:00 2023-10-24 14:00:00 Outpatient R [facility] [id number] [facility] 2023-10-23 14:00:00 2023-10-23 14:38:46 Outpatient R AMINA JORDAN [facility] [id number] [facility] 2023-10-23 14:00:00 2023-10-23 14:38:46 Urgent Care JulianAmina Unknown, Attending [facility] MEDICAL OFFICE BUILDING 1..840.114 350.1.13.10 4.2.7.2.686 [id number] [facility] 2023-09-24 00:00:00 2023-09-24 16:18:21 Refill JulianAmina [facility] MEDICAL OFFICE BUILDING 1..840.114 350.1.13.10 4.2.7.2.686 [id number] [facility] 2023-09-24 14:00:00 2023-09-24 15:00:00 Outpatient R AMINA JORDAN [facility] [id number] [facility] 2023-09-24 14:00:00 2023-09-24 15:00:00 Urgent Care JulianAmina Unknown, Attending [facility] MEDICAL OFFICE BUILDING 1.840.114 350.1.13.10 4.2.7.2.686 [id number] [facility] 2023-08-17 10:30:00 2023-08-17 13:47:53 Telephonic Encounter GABRIEL BRAY [address] 1.2.840.114 350.1.13.58 9.2.7.2.686 [id number] [facility] 2023-08-06 17:40:00 2023-08-06 17:53:46 Outpatient VLADIMIR NATHAN [facility] [id number] [facility] 2023-07-04 16:00:00 2023-07-04 16:41:15 Outpatient [facility] [id number] [facility] 2023-07-04 11:25:00 2023-07-04 12:20:37 Outpatient [facility] [id number] [facility] 2023-07-04 09:45:00 2023-07-04 11:33:05 Office Visit Gabriel Bray [facility] [address] [facility] 1.2.840.114 350.1.13.58 9.2.7.2.686 [id number] [facility] 2023-05-10 16:20:00 2023-05-10 16:20:00 Outpatient JAI SAMUEL [facility] [id number] [facility] 2023-05-07 17:40:00 2023-05-07 17:57:36 Outpatient VLADIMIR NATHAN [facility] [id number] [facility] 2023-04-06 10:30:00 2023-04-06 10:30:00 Outpatient GABRIEL BRAY [facility] [id number] [facility] 2023-02-05 10:20:00 2023-02-05 10:20:00 Outpatient VLADIMIR NATHAN [facility] [id number] [facility] 2023-01-31 17:40:00 2023-01-31 17:37:07 Outpatient VLADIMIR NATHAN [facility] [id number] [facility] 2022-11-26 11:31:46 2022-11-26 23:59:00 Hospital Encounter Lico Lawrence [facility] MEDICAL OFFICE BUILDING 1.2.840.114 350.1.13.10 4.2.7.2.686 [id number] [facility] 2022-11-26 10:40:00 2022-11-26 12:04:21 Outpatient Debbie BARFIELD ENIDNGOC [facility] [id number] [facility] 2022-11-26 10:40:00 2022-11-26 11:00:00 Urgent Care Lawrence Barfield Unknown, Attending [facility] MEDICAL OFFICE BUILDING 1.114 350.1.13.10 4.2.7.2.686 [id number] [facility] 2022-11-26 00:00:00 2022-11-26 00:00:00 Telephone Lawrence Barfield [facility] MEDICAL OFFICE BUILDING 1.114 350.1.13.10 4.2.7.2.686 [id number] [facility] 2022-11-11 15:00:00 2022-11-11 15:20:00 Urgent Care Timoteo Koch Unknown, Attending [facility] MEDICAL OFFICE BUILDING 1.114 350.1.13.10 4.2.7.2.686 [id number] [facility] 2022-11-11 15:00:00 2022-11-11 15:00:00 Outpatient Debbie KOCH TIMOTEO [facility] [id number] [facility] 2022-11-11 00:00:00 2022-11-11 00:00:00 Orders Only Doctor Unassigned, [place] [facility] 1.114 350.1.13.10 4.2.7.2.686 [id number] [facility] 2022-11-06 09:00:00 2022-11-06 09:10:38 Outpatient VLADIMIR NATHAN [facility] [id number] [facility] 2022-11-03 11:00:00 2022-11-03 11:20:00 Telemedici Aime Engel [facility] [address] [facility] [facility] 1..114 350.1.13.58 9.2.7.2.686 [id number] [facility] 2022-09-04 13:00:00 2022-09-04 13:14:53 Telemedici ne Zenaida Mendiola [facility] 1.2840.114 350.1.13.58 9.2.7.2.686 [id number] [facility] 2022-09-04 10:50:00 2022-09-04 11:16:30 Telemedici ne Jai Samuel [facility] [address] 1.2.840.114 350.1.13.58 9.2.7.2.686 [id number] [facility] 2022-08-14 09:00:00 2022-08-14 09:06:02 Outpatient JENNIFERVLADIMIR BISHOP [facility] [id number] [facility] 2022-08-11 13:20:00 2022-08-11 14:05:02 Office Visit Marlene Daigle [facility] [address] 1.2840.114 350.1.13.58 9.2.7.2.686 [id number] [facility] 2022-08-02 10:30:00 2022-08-02 10:30:00 Outpatient JAGDEEP STUBBS [facility] [id number] [facility] 2022-07-04 16:00:00 2022-07-04 16:24:07 Telemedici ne Jai Samuel [facility] [address] 1.2840.114 350.1.13.58 9.2.7.2.686 [id number] [facility] 2022-06-19 10:50:00 2022-06-19 10:50:00 Outpatient JAI SAMUEL [facility] [id number] [facility] 2022-04-19 10:30:00 2022-04-19 10:30:00 Outpatient JAGDEEP STUBBS [facility] [id number] [facility] 2022-04-11 10:45:00 2022-04-11 11:33:15 Office Visit Argenis Sequeira [facility] 1 1.2840.114 350.1.13.58 9.2.7.2.686 [id number] [facility] 2022-03-29 11:30:00 2022-03-29 11:30:00 Outpatient ARGENIS SEQUEIRA [facility] [id number] [facility] 2022-03-21 14:20:00 2022-03-21 14:40:48 Office Visit Jai Samuel [facility] [address] 1.2.840.114 350.1.13.58 9.2.7.2.686 [id number] [facility] 2022-03-06 00:00:00 2022-03-06 00:00:00 Nurse Triage Ingrid Lares [facility] 1.2840.114 350.1.13.58 9.2.7.2.686 [id number] [facility] 2022-02-28 10:50:00 2022-02-28 11:14:09 Telemedici ne Jai Samuel [facility] [address] 1.2840.114 350.1.13.58 9.2.7.2.686 [id number] [facility] 2022-02-21 13:00:00 2022-02-21 13:27:40 Outpatient MK NUNEZ [facility] [id number] [facility] 2022-02-21 10:45:00 2022-02-21 10:45:00 Outpatient ARGENIS SEQUEIRA [facility] [id number] [facility] 2022-02-06 10:10:00 2022-02-06 10:10:00 Outpatient JAI SAMUEL [facility] [id number] [facility] 2022-02-01 11:30:00 2022-02-01 15:04:27 Outpatient GABRIEL BRAY [facility] [id number] [facility] 2022-01-10 11:30:00 2022-01-10 12:10:57 Office Visit Argenis Sequeira [facility] 1 1.2840.114 350.1.13.58 9.2.7.2.686 [id number] [facility] 2022-01-10 11:05:00 2022-01-10 11:05:00 Outpatient [facility] [id number] [facility] 2022-01-10 11:00:00 2022-01-10 11:00:00 Outpatient [facility] [id number] [facility] 2022-01-04 11:00:00 2022-01-04 11:00:00 Outpatient ARGENIS SEQUEIRA [facility] [id number] [facility] 2021-12-23 08:10:00 2021-12-23 08:49:02 Office Visit Jai Samuel [facility] [address] 1.2.840.114 350.1.13.58 9.2.7.2.686 [id number] [facility] 2021-12-20 13:00:00 2021-12-20 13:25:07 Outpatient MK NUNEZ [facility] [id number] [facility] 2021-12-08 08:50:00 2021-12-08 08:50:00 Outpatient SEB LEBLANC [facility] [id number] [facility] 2021-12-05 00:00:00 2021-12-05 00:00:00 Nurse Triage Pancho Yu, [facility] 1..840.114 350.1.13.58 9.2.7.2.686 [id number] [facility] 2021-12-02 07:50:00 2021-12-02 07:50:00 Outpatient JAI SAMUEL [facility] [id number] [facility] 2021-11-23 09:00:00 2021-11-23 09:00:00 Outpatient GABRIEL BRAY [facility] [id number] [facility] 2021-11-04 11:10:00 2021-11-04 11:30:00 Office Visit Jai Samuel [facility] [address] 1.2.840.114 350.1.13.58 9.2.7.2.686 [id number] 1 [id number] [facility] 2021-11-02 00:00:00 2021-11-02 00:00:00 Telephone Gabriel Bray [facility] [address] 1.2.840.114 350.1.13.58 9.2.7.2.686 [id number] 1 [id number] [facility] 2021-09-06 16:30:00 2021-09-06 17:21:43 Telemedici yary Jai Samuel [facility] [address] 1.2.840.114 350.1.13.58 9.2.7.2.686 [id number] 1 [id number] [facility] 2021-09-01 00:00:00 2021-09-01 00:00:00 Telephone Kendra Gibbons Jennifer [facility] 1.2.840.114 350.1.13.58 9.2.7.2.686 [id number] [facility] 2021-09-01 00:00:00 2021-09-01 00:00:00 Telephone Nathalia Cedeno [facility] [address] 1.2.840.114 350.1.13.58 9.2.7.2.686 [id number] 1 [id number] [facility] 2021-08-27 08:48:00 2021-08-31 14:05:00 [address] [facility] [id number] [facility] 2021-08-27 08:48:00 2021-08-31 14:05:00 Discharged Inpatient [facility] [id number] [facility] 2021-08-27 07:48:00 2021-08-31 13:05:00 Inpatient [facility] [id number] [facility] 2021-08-27 00:00:00 2021-08-27 00:00:00 Telephone Ericka Coley Elvia [facility] 1.2.840.114 350.1.13.58 9.2.7.2.686 [id number] [facility] 2021-08-24 19:50:00 2021-08-24 21:25:00 Emergency EM Clarissa Montesinos [facility] [id number] [facility] 2021-08-24 19:50:00 2021-08-24 21:25:00 Emergency EM Clarissa Montesinos [facility] ER [id number] [facility] 2021-08-03 11:00:00 2021-08-03 11:29:39 Telephonic Encounter Mark Clemons [facility] [address] 1.2.840.114 350.1.13.58 9.2.7.2.686 [id number] 1 [id number] [facility] 2021-07-26 00:00:00 2021-07-26 00:00:00 Telephone Mark Clemons [facility] [address] 1.2.840.114 350.1.13.58 9.2.7.2.686 [id number] [facility] 2021-07-20 00:00:00 2021-07-20 00:00:00 Telephone Jones Pool Nanayaa UTP [facility] 1.2.840.114 350.1.13.58 9.2.7.2.686 [id number] 1 [id number] [facility] 2021-05-23 15:40:00 2021-05-23 15:40:00 Telemedici Amy Pool [facility]TP [address] 1.2.840.114 350.1.13.58 9.2.7.2.686 [id number] [facility] 2021-03-03 00:00:00 2021-03-03 00:00:00 Refill Rosio Segundo [facility] [address] 1.2.840.114 350.1.13.58 9.2.7.2.686 [id number] 1 [id number] [facility] 2021-02-01 15:48:28 2021-02-01 15:48:50 Telephonic Encounter Mark Clemons [facility]TP [address] 1.2.840.114 350.1.13.58 9.2.7.2.686 [id number] 1 [id number] [facility] 2021-01-21 00:00:00 2021-01-21 00:00:00 Bernie Lomas Lilliann [facility]TP [address] 1.2.840.114 350.1.13.58 9.2.7.2.686 [id number] 1 [id number] [facility] 2021-01-18 00:00:00 2021-01-18 00:00:00 Refill Mark Clemons [facility]TP [address] 1.2.840.114 350.1.13.58 9.2.7.2.686 [id number] 1 [id number] [facility] 2021-01-07 00:00:00 2021-01-07 00:00:00 Telephone Bladimir Corbett [facility] [address] 1.2.840.114 350.1.13.58 9.2.7.2.686 [id number] [facility] 2020-12-08 00:00:00 2020-12-08 00:00:00 Refill Cristinajamel Induagustinaace [facility]TP [address] 1.2.840.114 350.1.13.58 9.2.7.2.686 [id number] 1 [id number] [facility] 2020-11-17 07:39:21 2020-11-17 07:59:21 Telemedici Jai Elliott [facility]TP [address] 1.2.840.114 350.1.13.58 9.2.7.2.686 [id number] 1 [id number] [facility] 2020-11-15 00:00:00 2020-11-15 00:00:00 Telephone Fozia Sidhu [facility] [address] 1.2.840.114 350.1.13.58 9.2.7.2.686 [id number] 1 [id number] [facility] 2020-11-11 00:00:00 2020-11-11 00:00:00 Telephone Fozia Sidhu [facility]TP [address] 1.2.840.114 350.1.13.58 9.2.7.2.686 [id number] 1 [id number] [facility] 2020-09-16 00:00:00 2020-09-16 00:00:00 Refill Jase, Neva Laguna, Neva [facility] 1.2.840.114 350.1.13.58 9.2.7.2.686 [id number] [facility] 2020-06-30 09:45:00 2020-06-30 09:45:00 Appointmen t; MARK CLEMONS NP SADIKOVIC, ALIJANA, NP [facility] [id number] [place] [facility] 2020-06-23 11:30:00 2020-06-23 11:30:00 Appointmen t; MARK CLEMONS NP SADIKOVIC, ALIJANA, NP [facility] [id number] [place] [facility] 2020-06-14 11:00:00 2020-06-14 11:00:00 Appointmen t; JOSELO VARGAS M.D. HAN, SHAOJIE, M.D. [facility] Multispecia lty - Internation [facility] [id number] [place] 2020-06-10 10:30:00 2020-06-10 10:30:00 Appointmen t; JOSELO VARGAS M.D. HAN, SHAOJIE, M.D. [facility] [id number] [place] [facility] 2020-06-07 07:50:00 2020-06-07 07:50:00 Appointmen t; FOZIA SIDHU M.D. ZULFIQAR, AMBER, M.D. [facility] [id number] [place] 2020-04-14 11:30:00 2020-04-14 11:30:00 Appointmen t; JOSELO VARGSA M.D. HAN, SHAOJIE, M.D. [facility] Multispecia lty - Internation [facility] [id number] [place] 2020-04-14 09:50:00 2020-04-14 09:50:00 Appointmen t; FOZIA SIDHU M.D. ZULFIQAR, AMBER, M.D. [facility] [id number] [place] 2020-01-19 11:10:00 2020-01-19 11:10:00 Appointmen t; FOZIA SIDHU M.D. ZULFIQAR, AMBER, M.D. [facility] [id number] [place] 2019-11-18 11:00:00 2019-11-18 11:00:00 Appointmen t; JOSELO VARGAS M.D. HAN, SHAOJIE, M.D. [facility] [id number] [place] [facility] 2019-11-13 13:00:00 2019-11-13 13:00:00 Appointmen t; JOSELO VARGAS M.D. HAN, SHAOJIE, [facility] [id number] [place] [facility] 2019-11-06 10:30:00 2019-11-06 10:30:00 Appointmen t; MARK CLEMONS, MARK SOSA NP [facility] [id number] [place] 2019-10-20 10:10:00 2019-10-20 10:10:00 Appointmen t; FOZIA SIDHU M.D. ZULFIQAR, AMBER, M.D. [facility] [id number] [place] [facility] 2019-09-19 09:00:00 2019-09-19 09:00:00 Appointmen t; SLICK DUNAWAY M.D. KATZ, ALLAN, M.D. [facility] [id number] [place] [facility] 2019-09-15 13:30:00 2019-09-15 13:30:00 Appointmen t; CODEY PHELPS M.D. BHALWAL, ASHA, M.D. [facility] [id number] [place] [facility] 2019-08-12 11:30:00 2019-08-12 11:30:00 Appointmen t; MARK CLEMONS NP SADIKOVIC, ALIJANA, NP [facility] [id number] [place] 2019-08-04 11:00:00 2019-08-04 11:00:00 Appointmen t; CODEY PHELPS M.D. BHALWAL, ASHA, M.D. [facility] Women's Center [facility] [id number] [place] 2019-07-24 13:05:00 2019-07-27 19:10:00 Inpatient U CODEY PHELPS [facility] [id number] [facility] 2019-07-24 13:00:00 2019-07-24 13:00:00 Appointmen t; ZAY GRANADO M.D. ASSASSI, SHERVIN, M.D. [facility] [id number] [place] [facility] 2019-07-23 10:30:00 2019-07-23 10:30:00 Appointmen t; ROXANA MULLER M.D. BATISTE, OLIVER, M.D. [facility] Ob[facility]s [facility] [id number] [place] [facility] [facility] 2019-07-16 15:30:00 2019-07-16 15:30:00 Appointmen t; MARK CLEMONS NP SADIKOVIC, ALIJANA, NP [facility] [id number] [place] 2019-06-27 13:00:00 2019-06-27 13:00:00 Appointmen t; FOZIA SIDHU M.D. ZULFIQAR, AMBER, M.D. [facility] Family Medicine [facility] [id number] [place] 2019-06-17 12:00:00 2019-06-17 12:00:00 Appointmen t; JOSELO VARGAS M.D. HAN, SHAOJIE, M.D. [facility] Multispecia lty - Internation [facility] [id number] [place] 2019-05-13 11:00:00 2019-05-13 11:00:00 Appointmen t; MARK CLEMONS NP SADIKOVIC, ALIJANA, NP [facility] [id number] [place] [facility] 2019-05-09 10:45:00 2019-05-09 10:45:00 Appointmen t; ANABEL ARIAS M.D. AYOUB, HAJAR, M.D. [facility] [id number] [place] [facility] 2019-05-02 15:00:00 2019-05-02 15:00:00 Appointmen t; FRED VERA M.D. IKWUAGWU, TIFFANY, M.D. [facility] [id number] [place] 2019-04-28 12:36:00 2019-04-28 12:36:00 Emergency E [facility] [address] [facility] 2019-04-15 15:40:00 2019-04-15 15:40:00 Appointmen t; ASHLEY CORONEL M.D. MAREDIA, SUBHRATHA, M.D. [facility] [id number] [place] 2019-02-26 10:30:00 2019-02-26 10:30:00 Appointmen t; ANABEL ARIAS M.D. AYOUB, HAJAR, M.D. [facility] [id number] [place] [facility] [facility] 2018-12-31 15:00:00 2018-12-31 15:00:00 Appointmen t; MARINO CAPELLAN M.D. SIDDIQUI, GAZALA, M.D. [facility] [id number] [place] 2018-12-25 13:30:00 2018-12-25 13:30:00 Appointmen t; MARK CLEMONS NP SADIKOVIC, ALIJANA, YAN [facility] [id number] [place] [facility] 2018-12-20 11:30:00 2018-12-20 11:30:00 Appointmen t; MED PROVIDER, TCM MED PROVIDER, TCM [facility] Centralized Case Management [id number] [place] 2018-12-08 20:00:00 2018-12-08 11:53:00 Inpatient E [facility] [id number] [facility] 2018-11-27 13:45:00 2018-11-27 13:45:00 Appointmen t; NATHALIA CEDENO M.D. SHARMA, SAUMYA, M.D. [facility] [id number] [place] [facility] [facility] 2018-11-27 10:30:00 2018-11-27 10:30:00 Appointmen t; JOSELO VARGAS M.D. HAN, SHAOJIE, M.D. [facility] Multispecia lty - Internation [facility] [id number] [place] 2018-11-26 13:30:00 2018-11-26 13:30:00 Appointmen t; HOLTER, NON-INVASI VE HOLTER, NON-INVASIV E [facility] Non-Invasiv e [facility] [id number] [place] 2018-11-26 10:30:00 2018-11-26 10:30:00 Appointmen t; FOZIA SIDHU M.D. ZULFIQAR, AMBER, M.D. [facility] [id number] [place] 2018-11-01 10:09:00 2018-10-31 20:37:00 Inpatient E [facility] CAR [address] [facility] 2018-09-09 09:20:00 2018-09-09 09:20:00 Appointmen t; JORDI WONG M.D. LOGHIN, CATALIN, M.D. [facility] [id number] [place] [facility] 2018-04-23 13:00:00 2018-04-23 13:00:00 Appointmen t; JOSELO VARGAS M.D. HAN, SHAOJIE, M.D. [facility] [id number] [place] 2018-03-06 12:00:00 2018-03-06 12:00:00 Appointmen t; JOSELO VARGAS M.D. HAN, SHAOJIE, M.D. [facility] [id number] [place] [facility] [facility] 2018-02-19 11:30:00 2018-02-19 11:30:00 Appointmen t; JOSELO VARGAS M.D. HAN, SHAOJIE, M.D. [facility] [id number] [place] [facility] [facility] 2018-02-19 11:30:00 2018-02-19 11:30:00 Appointmen t; JOSELO VARGAS M.D. HAN, SHAOJIE, M.D. [facility] [id number] [place] [facility] [facility] 2017-12-26 14:30:00 2017-12-26 14:30:00 Appointmen t; KARINE SCHMIDT M.D. LE, TRAN, M.D. [facility] [id number] [place] [facility] [facility] 2017-11-30 13:00:00 2017-11-30 13:00:00 Appointmen t; FOZIA SIDHU M.D. ZULFIQAR, AMBER, M.D. [facility] Family [facility] [id number] [place] 2017-11-21 11:00:00 2017-11-21 11:00:00 Appointmen t; JOSELO VARGAS M.D. HAN, SHAOJIE, M.D. [facility] Psychiat[place] [id number] [place] [facility] 2017-11-06 12:00:00 2017-11-06 12:00:00 Appointmen t; JOSELO VARGAS M.D. HAN, SHAOJIE, M.D. [facility] [id number] [place] [facility] 2017-08-30 10:00:00 2017-08-30 10:00:00 Appointmen t; MARINO CAPELLAN M.D. SIDDIQUI, GAZALA, M.D. [facility] [id number] [place] 2017-08-06 14:00:00 2017-08-06 14:00:00 Appointmen t; JOSELO VARGAS M.D. HAN, SHAOJIE, M.D. [facility] [place]iat[place] [id number] [place] 2017-08-06 10:40:00 2017-08-06 10:40:00 Appointmen t; JORDI WONG M.D. LOGHIN, CATALIN, M.D. [facility] Cardiology [id number] [place] 2017-07-27 10:30:00 2017-07-27 10:30:00 Appointmen t; FOZIA SIDHU M.D. ZULFIQAR, AMBER, M.D. [facility] Family [facility] [id number] [place] [facility] 2017-06-26 13:30:00 2017-06-26 13:30:00 Appointmen t; JOSELO VARGAS M.D. HAN, SHAOJIE, M.D. [facility] [id number] [place] [facility] 2017-04-24 12:00:00 2017-04-24 12:00:00 Appointmen t; JOSELO VARGAS M.D. HAN, SHAOJIE, M.D. [facility] [id number] [place] [facility] 2017-01-11 13:45:00 2017-01-11 13:45:00 Appointmen t; FOZIA SIDHU M.D. ZULFIQAR, AMBER, M.D. [facility] [id number] [place] [facility] 2017-01-02 14:00:00 2017-01-02 14:00:00 Appointmen t; JOSELO VARGAS M.D. HAN, SHAOJIE, M.D. [facility] [id number] [place] [facility] 2017-01-02 10:30:00 2017-01-02 10:30:00 Appointmen t; HIRAL ROBERSON, P.HIRAL BUSTOS, P.Tanmay [facility]TP [facility] [id number] [place] [facility] 2016-10-03 11:00:00 2016-10-03 11:00:00 Appointmen t; FOZIA SIDHU M.D. ZULFIQAR, AMBER, M.D. [facility] [id number] [place] [facility] 2016-09-27 13:00:00 2016-09-27 13:00:00 Appointmen t; JOSELO VARGAS M.D. HAN, SHAOJIE, M.D. [facility] [id number] [place] [facility] 2016-09-20 11:00:00 2016-09-20 11:00:00 Appointmen t; FOZIA SIDHU M.D. ZULFIQAR, AMBER, M.D. [facility] [id number] [place] [facility] 2016-09-05 14:00:00 2016-09-05 14:00:00 Appointmen t; FOZIA SIDHU M.D. ZULFIQAR, AMBER, M.D. [facility] [id number] [place] [facility] 2016-07-28 10:45:00 2016-07-28 10:45:00 Appointmen t; FOZIA SIDHU M.D. ZULFIQAR, AMBER, M.D. [facility] [place] [id number] [place] [facility] [facility] 2016-07-28 09:30:00 2016-07-28 09:30:00 Appointmen t; BLANCA SCHMIDT M.D. ESSEL, KATHLEEN, M.D. [facility] [place] [id number] [place] 2016-06-28 10:00:00 2016-06-28 10:00:00 Appointmen t; RAGHAVENDRA JOHNSON M.D. VOWELS, PATRICIA, M.D. [facility] [place] [id number] [place] [facility] [facility] 2016-06-16 14:30:00 2016-06-16 14:30:00 Appointmen t; ELIZABETH BALDWIN M.D. VON BERGEN, VERA, M.D. [facility] [place]TP [id number] [place] [facility] [facility] 2016-01-13 15:00:00 2016-01-13 15:00:00 Appointmen t; Titus Smith M.D. Montalvo-Ch en, Rolf, M.D. [facility]TP [id number] [place] [facility] [facility] 2015-11-16 10:30:00 2015-11-16 10:30:00 Appointmen t; Titus Smith M.D. Montalvo-Ch en, Rolf, M.D. [facility] [place] [id number] [place] [facility] [facility] 2015-09-29 12:00:00 2015-09-29 12:00:00 Appointmen t; GABRIELLA BABIN M.D. SHACKELFORD, JAMES, M.D. [facility] [place] [id number] [place] [facility] 2015-07-26 13:30:00 2015-07-26 13:30:00 Appointmen t; NASEEM NESBITT M.D. VELARDE, ROBERT, M.D. [facility] [id number] [place] Results Test Description Test Time Test Comments Results Result Co mments Source [facility] with Euvx1937-34-51 19:38:22* Test Item Value Reference Range Interpretation Comme nts WBC (test code = 6690-2) 2.07 4.30-11.10 L RBC (test code = 789-8) 4.36 3.93-5.25 HGB (test code = 718-7) 12.8 g/dL 11.6-15.0 HCT (test code = 4544-3) 39.9 % 35.7-45.2 MCV (test code = 787-2) 91.5 fL 80.6-95.5 MCH (test code = 785-6) 29.4 pg 25.9-32.8 MCHC (test code = 786-4) 32.1 g/dL 31.6-35.1 RDW-SD (test code = 15990-3) 42.8 fL 39.0-49.9 RDW-CV (test code = 788-0) 12.8 % 12.0-15.5 PLT (test code = 777-3) 201 166-358 MPV (test code = 53867-9) 10.4 fL 9.5-12.9 NRBC/100 WBC (test code = 9426125651) 0 0.0-10.0 NRBC x10^3 (test code = 6881502198) See_Comment [Automated messa ge] The system which generated this result transmitted reference range: 10*3/?L. The reference range was not used to interpret this result as normal/abnormal. GRAN MAT (NEUT) % (test code = 770-8) 44.5 % IMM GRAN % (test code = 4446604422) 0.5 % LYMPH % (test code = 736-9) 44.9 % MONO % (test code = 5905-5) 6.8 % EOS % (test code = 713-8) 1.9 % BASO % (test code = 706-2) 1.4 % GRAN MAT x10^3(ANC) (test code = 6114695252) 0.92 10*3/uL 1.88-7.09 L IMM GRAN x10^3 (test code = 8222240561) 0.00-0.06 LYMPH x10^3 (test code = 731-0) 0.93 10*3/uL 1.32-3.29 L MONO x10^3 (test code = 742-7) 0.14 10*3/uL 0.33-0.92 L EOS x10^3 (test code = 711-2) 0.04 10*3/uL 0.03-0.39 BASO x10^3 (test code = 704-7) 0.03 10*3/uL 0.01-0.07 Lab Interpretation (test code = 25371-6) [facility]normal [facility] [id number] 19:12:12* Test Item Value Reference Range Interpretation Comme nts TROPONIN I (test code = 0705131647) 0.003 ng/mL <=0.034 ARMIDA (test code = ARMIDA) Reference (Normal) Range (defined by the 99th percentile reference limit): <= 0.034 ng/mL Note: Cardiac troponin begins to rise 3-4 hours after the onset of ischemia. Repeat in 4-6 hours if the sample was drawn within 3-4 hours of the onset of the symptom and found normal. Diagnosis of myocardial injury is made with acute changes in cTn concentrations with at least one serial sample above the 99th percentile upper reference limit (URL), taken together with the patient's clinical presentation. Biotin has been reported to cause a negative bias, interpret results relative to patient's use of biotin. Lab Interpretation (test code = 53412-1) Normal [facility] Dhe-Bsu4365-25-30 19:09:35* Test Item Value Reference Range Interpretation Comme nts NT-proBNP (test code = 52596-4) 67 pg/mL <=125 Lab Interpretation (test cod e = 63613-9) Normal [facility]. Metabolic Panel (66942)2024-07-23 19:01:30* Test Item Value Reference Range Interpretation Comme nts NA (test code = 8532106481) 140 mmol/L 135-145 K (test code = 4587883901) 4 mmol/L 3.5-5.0 CL (test code = 0744081275) 102 mmol/L 98-108 CO2 TOTAL (test code = 1781058632) 31 mmol/L 23-31 AGAP (test code = 1223634261) 7 2-16 BUN (test code = 3039564107) 14 mg/dL 7-23 GLUCOSE (test code = 8662489141) 82 mg/dL 70-110 CREATININE (test code = 2160-0) 0.53 mg/dL 0.50-1.04 TOTAL BILI (test code = 8910724457) 0.6 mg/dL 0.1-1.1 CALCIUM (test code = 1662994493) 9.3 mg/dL 8.6-10.6 T PROTEIN (test code = 2485119758) 8.1 g/dL 6.3-8.2 ALBUMIN (test code = 9468903488) 4.8 g/dL 3.5-5.0 ALK PHOS (test code = 0295721932) 67 U/L 34-122 ALTv (test code = 1742-6) 40 U/L 5-35 H AST(SGOT) (test code = 1398559708) 44 U/L 13-40 H eGFR (test code = 27265-7) 119.3 mL/min/1.73m2 CKD-EPI eGFR (2020). Assuming creatinine has been stable day-to-day for at least three months, the eGFR indicates Category G1 (>= 90 mL/min/1.73 m2) Lab Interpretation (test code = 46959-6) Abnormal [facility] Chest 2 [id number] 18:50:40HISTORY: ?Chest discomfort. TECHNIQUE: AP and lateral upright views of the [facility] Comparison made with 11/26/2022 study. FINDINGS: No acute pneumonia detected. Minimal congestion in the lowerlungs and minimal left- sided pleural effusion suspected. Mild cardiomegaly noted. CONCLUSIONS: Mild cardiomegaly, minimal congestion in lower lungs withsuspicion of minimal left pleural effusion.[facility] Cervical spine wo contrast 2024-06-25 19:54:08 CERVICAL SPINE WO CONTRAST HISTORY: 39 years old Female with cerebral palsy and bilateral upper limband lower limb weakness right arm. COMPARISON: None TECHNIQUE: Multiplanar and multisequence MRIimaging of the cervical spinewas obtained before and after the administration of intravenous contrast FINDINGS: There is straightening of the cervical lordosis. The vertebral bodies arenormal in height and in normal alignment. 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 The background marrow s ignal is unremarkable. Mild diffuse disc desiccationis noted. [...] left neural foraminalnarrowing. No significant spinal canal steno sis. C5/C6: Posterior disc osteophyte complex with central disc extrusionresulting in moderate spinal canal stenosis and ventral indentation of thespinal cord. Moderate left and moderate to severe right neuroforaminalnarrowing. C6/C7: Disc osteophyte complex with left paracentral disc extrusion andbilateral uncovertebral arthrosis more on the left resulting in mild spinalcanal stenosis and left mild to moderate neural foraminal narrowing. Nosignificant right neural foraminal narrowing. C7/T1: No significant spinal canal stenosis or neural foraminal narrowing. The visualized brain and cervicalsoft tissues are unremarkable.[facility] SARS-COV-2 ANTIGEN (BINAX NOW)2023-10-23 20:00:00* Test Item Value Reference Range Interpretation Comme nts POCT SARS-COV-2 ANTIGEN (test code = 22567-9) Not Detected Not Detected, See Comment On board controls acceptable with C Line (test code = 3574) Yes Lab Interpretation (test code = 35330-9) Normal [facility] Urinalysis W Specific [id number] 19:51:00* Test Item Value Reference Range Interpretation [...] clear Lab Interpretation (test cod e = 82847-6) [id number] 05:03:00* Test Item Value Reference Range Interpretation [...] diagnosis of diabetes in children. According to [place] [employer] Association (ADA)guidelines, hemoglobin A1c <7.0% represents optimalcontrol in non- diabetic patients. Differentmetrics may apply to specific patient populations. Standards of Medical Care in Diabetes(ADA). ? This test was performed on the [employer] angel c503 platform.Effective 02/05/23, a change in test platforms from [email or web address] to the Fanta angel c503 may have [email or web address] results compared to historical results.[facility] the Fanta platform relative to the [employer]form had an average increase in HbA1c value [...] Information: ? ?Site ID: RGA ? ?Name: [facility] ? ?Address: [address] [place] [phone] ? ?Director: AMISH WILLIAMSON MD,PHD . [facility] and [id number] 04:17:00* Test Item Value Reference Range Interpretation [...] ABSOLUTE NEUTROPHILS (test code = 751-8) [phone] L ABSOLUTE LYMPHOCYTES (test code = 731-0) 292 460-0822 ABSOLUTE MONOCYTES (test code = 742-7) 179 200-950 L ABSOLUTE EOSINOPHILS (test code = 711-2) 39 15-500 ABSOLUTE BASOPHILS (test code = 704-7) 39 0-200 NEUTROPHILS (test code = 770-8) 51.9 % LYMPHOCYTES (test code = 736-9) 38.2 % MONOCYTES (test code = 5905-5) 6.9 % EOSINOPHILS (test code = 713-8) 1.5 % BASOPHILS (test code = 706-2) 1.5 % REPORT COMMENT:NICHOLAS G:YES RAC (test code = RAC) Performing Organization Information: ? ?Site ID: RGA ? ?Name: [facility] ? ?Address: [address] [place] [phone] ? ?Director: AMISH WILLIAMSON MD,PHD. Lab Interpretation (test code = 76078-7) [facility] [id number] 03:19:00* Test Item Value Reference Range Interpretation Comme nts GLUCOSE (test code = 2345-7) 83 mg/dL 65-99 ? Fastin g reference interval UREA NITROGEN (BUN) (test code = 3094-0) 8 mg/dL 7-25 CREATININE (test code = 2160-0) 0.61 mg/dL 0.50-0.99 EGFR (test code = 629739846) 116 See_Comment [Automated message] The system which generated this result transmitted reference range: > OR = 60 mL/min/1.73m2. The reference range was not used to interpret this result as normal/abnormal. BUN/CREATININE RATIO (test code = 3097-3) SEE NOTE: 6- ? Not Reported: BUN and Creatinine are within ? reference range. ? ? SODIUM (test code = 2951-2) 143 mmol/L 135-146 POTASSIUM (test code = 2823-3) 4.2 mmol/L 3.5-5.3 CHLORIDE (test code = 2075-0) 104 mmol/L 98-110 CARBON DIOXIDE (test code = 2027-9) 32 mmol/L 20-32 CALCIUM (test code = 07509-9) 9.6 mg/dL 8.6-10.2 PROTEIN, TOTAL (test code = 2885-2) 7.2 g/dL 6.1-8.1 ALBUMIN (test code = 1751-7) 4.5 g/dL 3.6-5.1 GLOBULIN (test code = 61032-5) 2.7 1.9-3.7 ALBUMIN/GLOBULIN RATIO (test code = 1759-0) 1.7 1.0-2.5 BILIRUBIN, TOTAL (test code = 1975-2) 0.7 mg/dL 0.2-1.2 ALKALINE PHOSPHATASE (test code = 6768-6) 54 U/L 31-125 AST (test code = 1920-8) 18 U/L 10-30 ALT (test code = 1742-6) 12 U/L 6-29 RAC (test code = RAC) Performing Organization Information: ? ?Site ID: RGA ? ?Name: [facility] ? ?Address: [address] [place] [phone] ? ?Director: AMISH WILLIAMSON MD,PHD. [place] HealthTHYROID PANEL WITH [id number] 03:19:00* Test Item Value Reference Range Interpretation Comme nts T3 UPTAKE (test code = 3050-2) 35 % 22-35 T4 (THYROXINE), TOTAL (test code = 3026-2) 5.8 5.1-11.9 FREE T4 INDEX (T7) (test code = 67426-7) 2.0 1.4-3.8 TSH (test code = 3016-3) 1.38 mIU/L ?Referen ce Range ?> or = 20 Years ?0.40-4.50 ? Ranges ?First trimester ? ?0.26-2.66 ?Second trimester ? 0.55-2.73 ?Third trimester ? ?0.43-2.91 REPORT COMMENT:FASTING:YE S RAC (test code = RAC) Performing Organization Information: ? ?Site ID: RGA ? ?Name: [facility] [place] ? ?Address: [address] [place] [address] ? ?Director: AMISH WILLIAMSON MD,PHD. [facility]udaObkvztTggnyysjce1382-40-90 03:19:00* Test Item Value Reference Range Interpretation Comme nts PHOSPHATE ( PHOSPHORUS) (test code = 2777-1) 4.2 mg/dL 2.5-4.5 RAC (test code = RAC) Performing Organiz ation Information: ? ?Site ID: RGA ? ?Name: [facility] [place] ? ?Address: [address] [place] [phone] ? ?Director: AMISH WILLIAMSON MD,PHD. [place] BefftnYbsabmqxn7235-71-17 03:19:00* Test Item Value Reference Range Interpretation Comme nts MAGNESIUM (test code = 81265-3) 2.0 mg/dL 1.5-2.5 RAC (test code = RAC) Performing Organiz ation Information: ? ?Site ID: RGA ? ?Name: [facility] [place] ? ?Address: [address] [place] [phone] ? ?Director: AMISH WILLIAMSON MD,PHD. [facility] 12 amtd9067-98-48 19:37:25SB 55, [place] 220, QRS 105, Qtc 400.[facility] POCT MOLECULAR [id number] 16:49:50* Test Item Value Reference Range Interpretation Comme nts POCT Molecular FluA (test co de = 94539-2) Negative Negative POCT Molecular FluB (test co de = 43725-7) Negative Negative Lab Interpretation (test cod e = 22818-2) Normal [facility] MOLECULAR [id number] 16:43:58* Test Item Value Reference Range Interpretation Comme nts POCT Molecular Strep (test c ode = 62407-8) Negative Negative Lab Interpretation (test cod e = 16574-2) Normal [facility] SARS-COV-2 ANTIGEN (BINAX NOW)2022-11-26 16:20:00* Test Item Value Reference Range Interpretation Comme nts POCT SARS-COV-2 ANTIGEN (nakia t code = 28892-6) Not Detected Not Detected On board controls acceptable with C Line (test code = 3574) Yes Lab Interpretation (test cod e = 20328-9) Normal [facility] 2 [id number] 09:04:00 [facility] 1985 Sex: F [place] [address] Patient Name: JENN HORAN MR #: [id number] : 1985 Age/Sex: 36/F Req #: [id number] Adm Physician: DAVID SANCHEZ MD Ordered by: [employer]I [employer] Report #: [id number] Location: [facility] Room/Bed: [facility] Procedure: [id number] DX/CHEST 2 VIEWS Exam Date: 08/31/21 Exam Time: 0600 REPORT STATUS: Signed Chest, PA and lateral History: Follow-up. Comparison: 08/29/2021. IMPRESSION: There are mildly increased bibasilar and perihilar opacities, slightly improved from the priorexamination. There is no evidence for new large focal consolidation, pneumothorax, or significant volume pleural effusion. The cardiomediastinal silhouette is stable in appearance. No acute osseous abnormality is identified. Signed by: Keegan Gerber MD on 08/31/2021 9:04 AM Dictated By: KEEGAN GERBER MD 0907 Transcribed By: PSCRIBE on 08/31/21 0904 COPY TO: CHERI SAHU NPSerum or plasma urea nitrogen measurement (mass/volume)2021-08-31 06:16:00* Test Item Value Reference Range Interpretation Comme nts Blood Urea Nitrogen (test co de = 3094-0) 9 7-26 [facility] Districterum or plasma creatinine measurement (mass/volume)2021-08-31 06:16:00* Test Item Value Reference Range Interpretation Comme nts Creatinine (test code = 2160-0) 0.66 0.57-1.11 [facility] Districterum or plasma urea nitrogen/creatinine mass mswda8571-58-03 06:16:00* Test Item Value Reference Range Interpretation Comme nts BUN/Creatinine Ratio (test c ode = 3097-3) 14 6-25 [facility] CenterEstimated glomerular filtration rate (GFR) gihzdqgnhfied2416-62-35 06:16:00* Test Item Value Reference Range Interpretation Comme [facility] Estimat Glomerular Filtration Rate (test code = 379161659) 100 See_Comment [Automated mes darcie] The system which generated this result transmitted reference range: 60-. The reference range was not used to interpret this result as normal/abnormal. [facility] CenterGlucose bqslomwsscc8851-04-31 06:16:00* Test Item Value Reference Range Interpretation Comme [facility] Glucose Level (test code = PXF1469) 78 74-118 [facility] Districterum or plasma calcium measurement (mass/volume)2021-08-31 06:16:00* Test Item Value Reference Range Interpretation Comme [facility] Calcium Level (test code = 03512-9) 7.9 8.4-10.2 [facility] CenterBlood leukocytes automated count (number/volume)2021-08-31 06:16:00* Test Item Value Reference Range Interpretation Comme [facility] White Blood Count (test code = 6690-2) 3.81 4.8-10.8 [facility] CenterBlolm[facility] erythrocytes automated count (number/volume)2021-08-31 06:16:00* Test Item Value Reference Range Interpretation Comme [facility] Red Blood Count (test code = 789-8) 4.45 3.6-5.1 [facility] CenterBlood hemoglobin measurement (moles/volume) 2021-08-31 06:16:00* Test Item Value Reference Range Interpretation Comme [facility] Hemoglobin (test code = 71970-0) 12.7 12.0-16.0 [facility] CenterAutomated blood hematocrit (volume fraction) 2021-08-31 06:16:00* Test Item Value Reference Range Interpretation Comme [facility] Hematocrit (test code = 4544-3) 41.2 34.2-44.1 [facility] CenterAutomated erythrocyte mean corpuscular volume 2021-08-31 06:16:00* Test Item Value Reference Range Interpretation Comme [facility] Mean Corpuscular Volume (nakia t code = 787-2) 92.6 81-99 [facility] CenterAutomated erythrocyte mean corpuscular hemoglobin (mass per erythrocyte)2021-08-31 06:16:00* Test Item Value Reference Range Interpretation Comme [facility] Mean Corpuscular Hemoglobin (test code = 785-6) 28.5 28-32 [facility] CenterAutomated erythrocyte mean corpuscular hemoglobin concentration measurement (mass/volume)2021-08-31 06:16:00* Test Item Value Reference Range Interpretation Comme nts Mean Corpuscular Hemoglobin Concent (test code = 786-4) 30.8 31-35 [facility] CenterRDW MacNb-Cxy8135-77-08 06:16:00* Test Item Value Reference Range Interpretation Comme [facility] Red Cell Distribution Width (test code = 55225-1) 14.3 11.7-14.4 [facility] CenterAutomated blood platelet count (count/volume) 2021-08-31 06:16:00* Test Item Value Reference Range Interpretation Comme [facility] Platelet Count (test code = 777-3) 182 140-360 [facility] CenterAutomated blood segmented neutrophil count as percentage of total qylglervpe4181-76-48 06:16:00* Test Item Value Reference Range Interpretation Comme nts Neutrophils (%) (Auto) (test code = 82459-0) 46.2 38.7-80.0 [facility] CenterAutomated blood lymphocyte count as percentage ot total fsniaxnzjb7263-24-66 06:16:00* Test Item Value Reference Range Interpretation Comme nts Lymphocytes (%) (Auto) (test code = 736-9) 41.7 18.0-39.1 [facility] CenterAutomated blood monocyte count as percentage of total dinpmvawpi9942-85-47 06:16:00* Test Item Value Reference Range Interpretation Comme nts Monocytes (%) (Auto) (test c ode = 5905-5) 9.2 4.4-11.3 [facility] CenterAutomated blood eosinophil count as percentage of total wraczvwwxc7306-27-87 06:16:00* Test Item Value Reference Range Interpretation Comme nts Eosinophils (%) (Auto) (test code = 713-8) 1.6 0.0-6.0 [facility] CenterAutomated blood basophil count as percentage of total aqvfeoxxji2197-98-03 06:16:00* Test Item Value Reference Range Interpretation Comme nts Basophils (%) (Auto) (test c ode = 706-2) 0.3 0.0-1.0 [facility] CenterFluoroscopic procedure less than one hour cksxiqgi4247-61-89 06:16:00* Test Item Value Reference Range Interpretation Comme nts IM GRANULOCYTES % (test code = IM GRANULOCYTES %) 1.0 0.0-1.0 [facility] CenterAutomated blood neutrophil gisbv9850-80-57 06:16:00* Test Item Value Reference Range Interpretation Comme nts Neutrophils # (Auto) (test c ode = 751-8) 1.8 2.1-6.9 [facility] CenterBlood lymphocytes count (number/volume) 2021-08-31 06:16:00* Test Item Value Reference Range Interpretation Comme nts Lymphocytes # (Auto) (test c ode = 20727-7) 1.6 1.0-3.2 [facility] CenterBlood monocytes automated count (number/volume)2021-08-31 06:16:00* Test Item Value Reference Range Interpretation Comme nts Monocytes # (Auto) (test code = 742-7) 0.4 0.2-0.8 [facility] CenterAutomated blood eosinophil sagwt2746-34-12 06:16:00* Test Item Value Reference Range Interpretation Comme nts Eosinophils # (Auto) (test c ode = 711-2) 0.1 0.0-0.4 [facility] CenterAutomated blood basophil count (count/volume) 2021-08-31 06:16:00* Test Item Value Reference Range Interpretation Comme nts Basophils # (Auto) (test code = 704-7) 0.0 0.0-0.1 [facility] Districterum or plasma sodium measurement (moles/volume)2021-08-31 06:16:00* Test Item Value Reference Range Interpretation Comme nts Sodium Level (test code = 2951-2) 143 136-145 [facility] Districterum or plasma potassium measurement (moles/volume)2021-08-31 06:16:00* Test Item Value Reference Range Interpretation Comme nts Potassium Level (test code = 2823-3) 4.1 3.5-5.1 [facility] Districterum or plasma chloride measurement (moles/volume)2021-08-31 06:16:00* Test Item Value Reference Range Interpretation Comme nts Chloride Level (test code = 2075-0) 107 98-107 [facility] Districterum or plasma carbon dioxide, total measurement (moles/volume)2021-08-31 06:16:00* Test Item Value Reference Range Interpretation Comme nts Carbon Dioxide Level (test c ode = 2027-9) 27 22-29 [facility] Districterum or plasma anion yhw7112-72-46 06:16:00 * Test Item Value Reference Range Interpretation Comme [facility] Anion Gap (test code = 88481-9) 13.1 8-16 [facility] CenterFluoroscopic procedure less than one hour jzygcabu5120-23-37 06:23:00* Test Item Value Reference Range Interpretation Comme nts Hemoglobin A1c Percent (test code = Hemoglobin A1c Percent) 5.0 4.0-7.0 [facility] CenterPhosphorus bbgfwahrzdr9117-81-92 06:23:00* Test Item Value Reference Range Interpretation Comme nts Phosphorus Level (test code = RIX8907) 3.7 2.3-4.7 [facility] Districterum or plasma magnesium measurement (mass/volume)2021-08-30 06:23:00* Test Item Value Reference Range Interpretation Comme nts Magnesium Level (test code = 84548-4) 1.9 1.3-2.1 [facility] Districterum or plasma total bilirubin measurement (mass/volume)2021-08-30 06:23:00* Test Item Value Reference Range Interpretation Comme nts Total Bilirubin (test code = 1975-2) 0.5 0.2-1.2 [facility] Districterum or plasma alanine aminotransferase measurement (enzymatic activity/volume)2021-08-30 06:23:00* Test Item Value Reference Range Interpretation Comme nts Alanine Aminotransferase (AL T/SGPT) (test code = 1742-6) 26 0-55 [facility] Districterum or plasma protein measurement (mass/volume)2021-08-30 06:23:00* Test Item Value Reference Range Interpretation Comme [facility] Total Protein (test code = 2885-2) 6.3 6.5-8.1 [facility] Districterum or plasma albumin measurement (mass/volume)2021-08-30 06:23:00* Test Item Value Reference Range Interpretation Comme [facility] Albumin (test code = 1751-7) 3.6 3.5-5.0 [facility] CenterPlasma globulin measurement (mass/volume) 2021-08-30 06:23:00* Test Item Value Reference Range Interpretation Comme [facility] Globulin (test code = 58435-1) 2.7 2.3-3.5 [facility] Districterum or plasma albumin/globulin mass ratio 2021-08-30 06:23:00* Test Item Value Reference Range Interpretation Comme [facility] Albumin/Globulin Ratio (test code = 1759-0) 1.3 0.8-2.0 [facility] Districterum or plasma alkaline phosphatase measurement (enzymatic activity/volume)2021-08-30 06:23:00* Test Item Value Reference Range Interpretation Comme [facility] Alkaline Phosphatase (test c ode = 6768-6) 46 40-150 [facility] Districterum or plasma triglyceride measurement (mass/volume)2021-08-30 06:23:00* Test Item Value Reference Range Interpretation Comme [facility] Triglycerides Level (test co de = 2571-8) 157 0-149 [facility] Districterum or plasma cholesterol measurement (mass/volume)2021-08-30 06:23:00* Test Item Value Reference Range Interpretation Comme [facility] Cholesterol Level (test code = 2093-3) 171 0-199 [facility] Districterum or plasma cholesterol in LDL measurement (mass/volume)2021-08-30 06:23:00* Test Item Value Reference Range Interpretation Comme [facility] LDL Cholesterol (test code = 2089-1) 105 60-130 [facility] Districterum or plasma cholesterol in HDL measurement (mass/volume)2021-08-30 06:23:00* Test Item Value Reference Range Interpretation Comme [facility] HDL Cholesterol (test code = 2085-9) 35 40-60 [facility] Districterum or plasma total cholesterol/cholesterol in HDL mass vqksp0023-85-82 06:23:00* Test Item Value Reference Range Interpretation Comme [facility] Cholesterol/HDL Ratio (test code = 9830-1) 4.9 3.0-3.6 [facility] Districterum or plasma thyrotropin measurement by detection limit <= 0.005 miu/l (units/volume)2021-08-30 06:23:00* Test Item Value Reference Range Interpretation Comme [facility] Thyroid Stimulating Hormone (TSH) (test code = 10894-7) 1.325 0.350-4.940 [facility]CHE[facility]INGLE ([facility]ABLE)2021-08-29 11:04:00 [facility] 1985 Sex: F [place] [address] Patient Name: JENN HORAN MR #: [id number] : 1985 Age/Sex: 36/F Req#: [id number] [facility] Physician: DAVID SANCHEZ MD Ordered by: CHRISTINE YANEZ MD Report #: [id number] Location: MED/SURG2 Room/Bed: [facility] Procedure: [id number] DX/CHEST SINGLE (PORTABLE) Exam Date: 08/29/21 Exam Time: 09 REPORT STATUS: Signed Exam: CHEST SINGLE (PORTABLE) Date: 08/29/2021 11:03 AM Indication: Congestion Comparison: CXR of the prior day FINDINGS: Lines/Tubes:None Lungs:The lungs are wellinflated. There is perihilar fullness and indistinctness of the pulmonary vasculature. No focal consolidation or airspace edema. Pleura:No pleural effusion. No pneumothorax. Heart/Mediastinum:The cardiomediastinal silhouette is unchanged in size and contour. Bones/Soft Tissues: No acute osseous injury. Abdomen: No free air below the diaphragm. IMPRESSION: Unchanged mild central pulmonary vascularcongestion. No airspace edema or pneumonia. Signed by: Fernando Tapia on 08/29/2021 11:04 AM Dictated By:FERNANDO TAPIA MD 1107 Transcribed By: PSCRIAMBROCIO on 08/29/21 1104 COPY TO: CHRISTINE YANEZ MDTroponin I measurement by highly sensitive enzyme bimhljsbygs5755-64-38 15:33:00* Test Item Value Reference Range Interpretation Comme nts Troponin I (test code = 35526-1) 0.100 0-0.300 [facility] SINGLE (PORTABLE)2021-08-27 13:11:00 [facility] [place] : 1985 Sex: F [address] [address] P atient Name: JENN HORAN MR #: [id number] : 1985 Age/Sex: 36/F Req #: [id number] Adm Physician: DAVID SANCHEZ MD Ordered by: CHRISTINE YANEZ MD Report #: [id number] Location: MED/SURG2 Room/Bed: [facility] Procedure: [id number] DX/CHEST SINGLE (PORTABLE) Exam Date: 08/27/21 Exam Time: 1155 REPORT STATUS: Signed Chest dated 08/27/2021 Clinical Information: Cough Comment: Heart is enlarged. Pulmonary vasculature is indistinct. Interstitial disease is seen bilaterally suggestive of vascular congestion. No pleural effusion or pneumothorax is seen. Impression: Cardiomegalywith vascular congestion. Signed by: Gabriella Dee on 08/27/2021 1:11 PM Dictated By: GABRIELLA DEE MD 1314 Transcribed By: PSCRIBE on 08/27/21 1311 COPY TO: CHRISTINE YANEZ MD COMPREHENSIVE METABOLIC [id number] 20:48:00* Test Item Value Reference Range Interpretation [...] 65 Units/L 50-136 N Coronavirus 2019 nCoV Cqrukva3653-44-49 20:47:00* Test Item Value Reference Range Interpretation Comme nts Coronavirus 2019 nCoV Bedside (test code = UNSMI61FLUSM) Positive Negative A ID NOW COVID-19 assay performed on the ID NOW Instrument lala rapid molecular in vitro diagnostic test utilizing anisothermal nucleic acid amplification technology intendedfor the qualitative detection of nucleic acid from mckBUJA-EbJ-5 viral RNA in direct nasal, nasopharyngeal orthroat [...] patient history, and epidemiologicalinformation . CBC W/AUTO [id number] 20:40:00* Test Item Value Reference Range Interpretation [...] x10 3/uL 0.0-0.2 - XR CHEST 1 [id number] 20:28:00 [facility] 1985 Sex: FPatient Name: JENN HORAN Unit No: [id number] EXAMS: CPT CODE: [id number] XR CHEST 1 V 63819 Reason: cough EXAM: - XR CHEST 1 V HISTORY: Cough and fever. COMPARISON: None available time of interpretation. FINDINGS: Single AP view of the chest is provided. Heart size and vascularity are within normal limits for the position. There is no evidence of a focal consolidation. Limited exam due tooverlying soft tissues in position. There is no pleural effusion or pneumothorax. There is no definite acute osseous abnormality. Mild dextroscoliosis in midthoracic spine. IMPRESSION: No definite focal consolidation. at 2027 Reported and signed by: Cal Galvan MD CC: Clarissa Montesinos DO Technologist: DANIELE Cordova Trscrpt Dt/ (2027)YenMKM4 Orig Print D/T: S: 08/24/2021 (2030) [place] FSED NAME: [facility] [address] [facility] PHYS: [place] [id number] : 1985 AGE: 36 SEX: F LOC: D.RER PHONE #: EXAM DATE: 08/24/2021 STATUS: PRE ERFAX #: RAD NO: DC Dt: PAGE 1 Signed Report[QL] MICROALBUMIN, RANDOM URINE (W/CREATININE)2019-10-23 11:31:00* Test Item Value Reference Range Interpretation [...] a patient to bewithin a diagnostic category. [facility][QL] LIPID [id number] 13:21:00* Test Item Value Reference Range Interpretation Comme nts CHOLESTEROL, TOTAL; Normal (test code = 2093-3) 155 mg/dl <200 N HDL CHOLESTEROL; Below Low Threshold (test code = 2085-9) 44 mg/dl > OR = 50 TRIGLYCERIDES; Normal (test code = 2571-8) 64 mg/dl <150 N LDL-CHOLESTEROL; Normal (test code = 09989-2) 96 {MG/DL JAX} N Reference range: <100 Desirable range <100 mg/dL for primary prevention; <70 mg/dL for patients with CHD or diabetic patients with > or = 2 CHD risk factors. LDL-C is now calculated using the Abran-Shira calculation, which is a validated novel method providing better accuracy than the Friedewald equation in the estimation of LDL-C. Abran MCMAHAN et al. LEONARDO. 2013;310(19): 1578-3976 (http://education.CATASYS.com/f aq/MRH984) CHOL/HDLC RATIO (test code = CHOL/HDLC RATIO) 3.5 {CALC} <5.0 N NON HDL CHOLESTEROL (test code = NON HDL CHOLESTEROL) 111 {MG/DL JAX} <130 N For patients with diabetes plus 1 major ASCVD risk factor, treating to a non-HDL-C goal of <100 mg/dL (LDL-C of <70 mg/dL) is considered a therapeutic option. [facility][QL] HEPATITIS C GFUPZTAR2891-09-15 13:21:00* Test Item Value Reference Range Interpretation Comme nts HEPATITIS C ANTIBODY; Normal (test code = 47522-6) NON-REACTIVE NON-REACTIVE N SIGNAL TO CUT-OFF (test code = SIGNAL TO CUT-OFF) 0.02 <1.00 N HCV antibody was non-reactive. There is no laboratory evidence of HCV infection. In most cases, no further action is required. However,if recent HCV exposure is suspected, a test for HCV RNA(test code 07342) is suggested. For additional information please refer tohttp://education.Appticles/fa q/EAY44v3(This link is being provided for informational/educati onal purposes only.) [facility][QL] HEMOGLOBIN [id number] 13:21:00* Test Item Value Reference Range Interpretation [...] diagnosis of diabetes in children. According to [place] Diabetes Association (ADA)guidelines, hemoglobin A1c <7.0% represents optimalcontrol in non- diabetic patients. Differentmetrics may apply to specific patient populations. Standards of Medical Care in Diabetes(ADA). [facility][QL] URINALYSIS, [id number] 16:20:01* Test Item Value Reference Range Interpretation Comme nts UA Turbidity (test code = 18427-9) Clear Clear UA Spec Grav (test code = 5810-7) 1.012 <=1.030 UA pH (test code = 5803-2) 7.0 5.0-8.0 UA Protein (test code = 22488-0) Negative Negative UA Glucose (test code = 85736-9) Negative Negative UA Ketones (test code = 67500-0) Negative Negative UA Bili (test code = 5770-3) Negative Negative UA Blood (test code = 5794-3) Negative Negative UA Nitrite (test code = 5802-4) Negative Negative UA Leuk Est (test code = 5799-2) Negative Negative UA RBC (test code = 54981-9) 1 {/HPF} 0-2 UA WBC (test code = 42467-6) <1 0-5 UA Bacteria (test code = 89500-0) Occasional None Seen UA Mucus (test code = 8247-9) Few None Seen UA Sq Epi (test code = 09464-6) Occasional Few UA Color (test code = 5778-6) Ltyellow UROBILINOGEN (test code = 08700-6) <=1.0 0.1-1.0 [facility]] CULTURE, URINE, [id number] 16:20:01* Test Item Value Reference Range Interpretation Comme nts FINAL REPORT (test code = FI NAL REPORT) No Growth [facility]. [facility] - [id number] 00:00:00* Test Item Value Reference Range Interpretation Comme nts Case (test code = Case) Click ImageLink button for report. N Specimen 1 (test code = Specimen 1) Click ImageLink button for report. N [facility] Pel[facility] with Pelvis Transvaginal [id number] 12:40:00 PROCEDURE INFORMATION:Exam: US Pelvis Complete, Transabdominal [...] ovarian cyst.Manolo Mckeon MD On 04/29/2019 15:51:15; [id number] by: Manolo Mckeon MDDictated Date/time: 04/29/19 15:51Electronically Signed by: Manolo Mckeon MD 04/29/2014:51FINAL REPORTUT Physicians[[facility]] CULTURE, URINE, ROUTINE 2019-01-03 03:00:00* Test Item Value Reference Range Interpretation Comme nts CULTURE (test code = CULTURE) See Comment CULTURE, URINE, ROUTINE MICRO NUMBER: [id number] TEST STATUS: FINAL SPECIMEN SOURCE: URINE SPECIMEN QUALITY: ADEQUATE RESULT: No GrowthNO COLLECTION DATE RECEIVED. WE HAVE USEDTHE DATE THE SPECIMEN WAS RECEIVED BY [facility] THE COLLECTION DATE. IF THISIS INCORRECT, PLEASE CONTACT CLIENT SERVICES.PHONE NUMBER: [phone] [facility][O] Urine Dipstick (In Office)2018-12-31 00:00:00* Test Item Value Reference Range Interpretation Comme nts Glucose (test code = Glucose) negative N LEUKOCYTES (test code = LEUKOCYTES) negative N NITRITE; Normal (test code = 83221-4) negative N UROBILINOGEN; Normal (test c ode = 21498-7) 0.2 N PROTEIN; Normal (test code = 10645-0) negative N pH (test code = pH) 5.5 N URINE BLOOD; Normal (test co de = 25325-1) trace N SPECIFIC GRAVITY; Normal (te st code = 2965-2) 1.030 N KETONES; Normal (test code = 18919-7) negative N BILIRUBIN; Normal (test code = 46181-1) negative N [facility]] URINALYSIS, [id number] 08:48:00* Test Item Value Reference Range Interpretation Comme nts COLOR; Normal (test code = 5778-6) YELLOW YELLOW N APPEARANCE (test code = APPEARANCE) CLEAR CLEAR N SPECIFIC GRAVITY; Normal (te st code = 2965-2) 1.015 1.001-1.035 N PH; Normal (test code = 2756-5) 8.0 5.0-8.0 N GLUCOSE; Normal (test code = 1547-9) NEGATIVE NEGATIVE N BILIRUBIN; Normal (test code = 72384-7) NEGATIVE NEGATIVE N KETONES; Normal (test code = 86029-8) NEGATIVE NEGATIVE N OCCULT BLOOD; Abnormal (test code = 66261-1) 3+ NEGATIVE A PROTEIN; Abnormal (test code = 12492-1) 1+ NEGATIVE A NITRITE; Normal (test code = 05478-3) NEGATIVE NEGATIVE N LEUKOCYTE ESTERASE (test cod e = LEUKOCYTE ESTERASE) NEGATIVE NEGATIVE N WBC; Normal (test code = 6690-2) 0-5 < OR = 5 N RBC; Abnormal (test code = 789-8) 3-10 < OR = 2 A SQUAMOUS EPITHELIAL CELLS (t est code = 02242-4) 0-5 < OR = 5 BACTERIA; Abnormal (test cod e = 630-4) FEW NONE SEEN A HYALINE CAST; Normal (test c ode = 57181-0) NONE SEEN NONE SEEN N [facility]] CULTURE, URINE, [id number] 08:48:00* Test Item Value Reference Range Interpretation Comme nts CULTURE (test code = CULTURE) See Comment A CULTURE, URINE, ROUTINE MICRO NUMBER: [id number] TEST STATUS: FINAL SPECIMEN SOURCE: URINE SPECIMEN [...] cefdinir, cefpodoxime, cefprozil, cefuroxime, cephalexin and loracarbef. [facility]] LIPID [id number] 11:26:00* Test Item Value Reference Range Interpretation Comme nts CHOLESTEROL, TOTAL; Normal (test code = 2093-3) 187 mg/dl <200 N HDL CHOLESTEROL; Normal (test code = 2085-9) 53 mg/dl >50 N TRIGLYCERIDES; Normal (test code = 2571-8) 74 mg/dl <150 N LDL-CHOLESTEROL; Above High Threshold (test code = 97556-7) 117 {MG/DL JAX} Reference range: <100 Desirable range <100 mg/dL for primary prevention; <70 mg/dL for patients with CHD or diabetic patients with > or = 2 CHD risk factors. LDL-C is now calculated using the Abran-Shira calculation, which is a validated novel method providing better accuracy than the Friedewald equation in the estimation of LDL-C. Abran SS et al. LEONARDO. 2013;310(19): 9733-1756 (http://education.CATASYS.com/f aq/NGJ687) CHOL/HDLC RATIO (test code = CHOL/HDLC RATIO) 3.5 {CALC} <5.0 N NON HDL CHOLESTEROL (test code = NON HDL CHOLESTEROL) 134 {MG/DL JAX} <130 For patients with diabetes plus 1 major ASCVD risk factor, treating to a non-HDL-C goal of <100 mg/dL (LDL-C of <70 mg/dL) is considered a therapeutic option. [facility]] CMP [id number] 11:26:00* Test Item Value Reference Range Interpretation [...] N BILIRUBIN, TOTAL; Normal (test code = 83521-3) 0.7 mg/dl 0.2-1.2 N ALKALINE PHSPHATASE (test code = ALKALINE PHSPHATASE) 58 u/l 33-115 N AST; Normal (test code = 1916-6) 18 u/l 10-30 N ALT; Normal (test code = 1742-6) 12 u/l 6-29 N [facility]] TSH, 3RD GENERATION W/REFLEX TO [id number] 11:26:00* Test Item Value Reference Range Interpretation Comme nts TSH, 3RD GENERATION W/REFLEX TO FT4 (test code = TSH, 3RD GENERATION W/REFLEX TO FT4) 0.89 {MIU/L} N Reference Range > or = 20 Years 0.40-4.50 Ranges First trimester 0.26-2.66 Second trimester 0.55-2.73 Third trimester 0.43-2.91 [facility]] URINALYSIS, [id number] 16:42:01* Test Item Value Reference Range Interpretation Comme nts UA Turbidity (test code = 54460-0) Clear Clear UA Spec Grav (test code = 5810-7) 1.003 <=1.030 UA pH (test code = 5803-2) 6.0 5.0-8.0 UA Protein (test code = 91540-3) Negative Negative UA Glucose (test code = 08620-2) Negative Negative UA Ketones (test code = 59542-5) Negative Negative UA Bili (test code = 5770-3) Negative Negative UA Blood (test code = 5794-3) Negative Negative UA Nitrite (test code = 5802-4) Negative Negative UA Leuk Est (test code = 5799-2) Negative Negative UA WBC (test code = 03490-6) <1 0-5 UA Bacteria; Abnormal (test code = 51793-0) Many None Seen A UA Sq Epi (test code = 13328-0) Occasional Few UA Color (test code = 5778-6) Ltyellow UROBILINOGEN (test code = 39870-7) <=1.0 0.1-1.0 [facility]] CULTURE, URINE, [id number] 16:42:01* Test Item Value Reference Range Interpretation Comme nts FINAL REPORT (test code = FINAL REPORT) Specimen contains 3 or more potential pathogens; recommend correlation withurinalysis; if catheterized specimen recommend removal and recollection. Ifclinical situation warrants please call the laboratory for further testing. COMicrobiology [phone]. [facility][O] Urine Dipstick (In Office)2017-11-30 13:20:00* Test Item Value Reference Range Interpretation Comme nts Glucose (test code = Glucose) N N LEUKOCYTES (test code = LEUKOCYTES) N N NITRITE; Normal (test code = 49345-4) N N UROBILINOGEN; Normal (test c ode = 58928-5) N N PROTEIN; Normal (test code = 84812-2) N N pH (test code = pH) 6.0 N URINE BLOOD; Normal (test co de = 66302-5) N N SPECIFIC GRAVITY; Normal (te st code = 2965-2) 1.015 N KETONES; Normal (test code = 42311-6) N N BILIRUBIN; Normal (test code = 82898-8) N N COLOR URINE; Normal (test co de = 5778-6) YELLOW N APPEARANCE; Normal (test cod e = 5767-9) CLEAR N [facility]] Urine Dipstick (In Office)2017-08-30 10:11:00* Test Item Value Reference Range Interpretation Comme nts LEUKOCYTES (test code = LEUKOCYTES) Negative N NITRITE; Normal (test code = 44886-9) Negative N PROTEIN; Normal (test code = 98402-1) Negative N URINE BLOOD; Abnormal (test code = 81333-2) Trace A KETONES; Normal (test code = 52614-9) Negative N GLUCOSE; Normal (test code = 1547-9) Negative N [facility] Notes Date/Time Note Provider Source 2024-07-23 17:52:37 Pt given printed and verbal discharge instructions regarding bradycardia and chest discomfort, encouraged hydration, 0 Prescriptions provided Pt verbalized understanding of instructions, pt awake alert oriented, resp reg unlabored, skin w/d, color appropriate for race, moves all ext well,pt encouraged to follow up with pcp and vasc tech. Advised to seek medical attention for new/prolonged/worsening of symptoms, Symptoms improved. PIV d'cd, dressing to site, catheter in tact. Awake, alert oriented, resp reg unlabored, skin w/d, pt leaving pushed in wheelchair by mother, in no apparent distress, [facility] 2024-07-23 13:21:44 Pt currently in ER. Lisa Carcamo RN [facility] 2024-07-23 11:55:50 Patient arrived in wheelchair c/o medication problem. Patient was recently diagnosed with heart failure and put on metoprolol. The metoprolol is interacting with schizophrenia medication where the patient heart rate is going to 39. LIOLuis Reyes RN [facility] 2024-07-23 08:06:45 Jenn Horan is a 39 year old female Patient mom calling stating that ever since taking the metoprolol succinate XL 25 mg 24 hr tablet patient took 10 out of 25MG because she didnt take enough now she is hearing voices , her heart rate dropped down to 38 and then it would be go back to 28-38 but then go back to 66 but it would take it awhile and she didnt sleep at all last night. Mom states that she can't give her any give her any medication take medication because her heart rate wont stay up Please call mom at [phone] Haylie Aragon [facility] 2024-07-22 11:37:[address] Tae James, "Can rarely cause bradycardiac but pt is already being monitored, BB does not prolong QT." Called EC. EC verbalized understanding of recommendations and has no further questions or concerns at this time. T Lisa Carcamo RN [facility] 2024-07-22 10:58:51 I already gave instructions to only given the metoprolol if HR >70. I recommended toprol XL 12.5 daily once ivabradine is stopped and VR is improved. [facility] 2024-07-22 10:29:13 Called EC back. EC just wanted to make sure that Dr. Tae James knew that pt is on Aripiprazole 5mg in AM and 20mg PM and Fluoxetine 20mg daily. EC asking if either of those medications would have an interaction with the Metoprolol. [facility] 2024-07-21 16:07:14 Jenn Horan is a 39 year old female Pts mother calling back states, the patient is to start metoprolol succinate XL 25 mg 24 hr tablet tomorrow. The patient is on fluoxetine and Abilify 5mg in the morning 20 in the afternoon and needs to know if the two interact. Rosita Mead [facility] 2024-07-21 15:53:05 S/w Dr. Tae James in clinic. Per Dr. Tae James, not considered about BP drop since low dose BB. Pt ok not taking BB but it would help heart if she did." Called EC. EC verbalized understanding of recs. EC states that pt will try Metoprolol tomorrow and see how it goes and will RCTC if any issure arise. EC also informed that upper limit of water consumption is 2L which is about eight 8oz glasses of water which patient is currently drinking 9 glasses per day. EC denies patient having any SOB or edema at this time. Lisa Carcamo RN [facility] 2024-07-21 14:33:05 Pts mom calling to leave a shaw hospitale for Tae James and nurse about pt. States the pt was supposed to start metoprolol succinate XL 25 mg 24 hr tablet after HR is 70 or above for consecutive days. States the pts HR and BP have been low. 07/21/24 at 2 PM 95/66 65 Last night at 12:30 pt had tightness in chest annd went to the ER. States she was told to tell the doctor but was not given anything. Pt was cleared and she feels fine today. Also states while hooked up to the ER monitors the pts BP was fine. LIOT Maryjane Rivas [facility] 2024-07-20 21:42:00 Regardinyof BP 101/60 pulse 61 ----- Message from Patient Marketing Services Coordinator sent at 07/20/2024 9:41 PM CDT ----- Jenn Horan is a 39 year old female Patient BP 101/60 pulse 61 mom wants to speak with nurse Aimee Amanda RN [facility] 2024-07-20 21:42:00 Jenn Horan is a 39 [...] triager answers question Protocols used: Medication Question [id number] [facility] 2024-07-18 10:15:00 Images from the original note were not included. Venipuncture collection performed by clean technique on the left forearm(s). Total of 1 attempts were made. Slight pressure and a bandage/dressing were applied to the site(s). The patient experienced no complications. The following specimens were processed according to instructions and sent to [facility] laboratories per lab order on 07/18/2024: LT BLUE SST 1 RED LAV 1 PPT DK GREEN (LiHep) DK GREEN (SodH) LING DK BLUE (K2) DK BLUE (S) ACD Blood Culture NIPT/NTD T [facility] 2024-07-17 10:38:57 Called pt. S/w EC Wilmer. EC agreeable to FU appt tomorrow 07/18 at 9:30am. Reached out to Luis, Nurse Medical Driver to make appt. T Lisa Carcamo RN [facility] 2024-07-16 10:12:20 Images from the original note were not included. Per Dr. Tae James, Called pt. No answer. VM box not set up. Unable to LMOR. [facility] 2024-04-25 09:38:06 Warm transferred from access center. Notified pt mother, Wilmer, of test results/recommendations per Dr. Garcia verbalized understanding. Wilmer questioned on further imaging of pt neck that was discussed during BRITTNEY. Appt made to further discuss with provider. [facility] 2024-04-25 09:20:03 Attempted to contact pt. LVHolly that I will call again at a later time. [facility] 2024-04-24 17:08:50 MRI normal. The dysautonomia specialist is Dr. Joseluis Mora in [place]. [facility] 2024-04-21 12:22:13 Dr. Valencia, please review MRI results and advise. Per BRITTNEY : -Brain MRI wo contrast -If abnormal findings will follow-up in clinic, if normal findings will consider further neck/spine imaging -Follow-up PRN -Consider future referral for dysautonomia specialist for further management. This issue is not evaluated in the general neurology clinic. [facility] 2024-04-21 11:27:04 Jenn Horan is a 39 year old female. Pts mother states that pt had MRI over a month ago and they still have not been informed on results. Mother requesting that provider or nurse call and review results. Please advise. LYNN Willis [facility] 2024-01-22 10:35:00 Spoke to the patient's mother and informed her of all the information and she verbalized understanding and confirmed address on file for referral to be mailed to them. Ann RN [facility] 2024-01-22 09:47:17 Images from the original note [...] covered. Referral can be mailed to her [facility] 2024-01-21 16:53:44 [facility] calling to speak with nurse regarding why the patient is being referred to them, and how we need to send the referral. Please advise Shannon option 3 Elaine Floyd [facility] 2024-01-21 14:00:00 Addended by: SULLY FLOOD RN on: 01/21/2024 03:44 PM Modules accepted: Orders Sully Flood RN [facility] 2023-10-25 14:12:52 Called number on file. Mother of patient was notified about negative Covid19 results. Mother of patient voiced in patient not getting better and is needing an RX. Patient is to be seen in urgent care for revaluation of symptoms. Mother of patient voiced understanding. Rashmi Adams RN 10/25/2023 2:16 PM [facility] 2023-08-17 10:30:00 Addended by: AMINA BECKHAM on: 08/17/2023 10:57 AM Modules accepted: Orders [facility] 2023-07-04 09:45:00 Addended by: AMINA BECKHAM on: 07/19/2023 11:41 AM Modules accepted: Orders [facility] [place] 2022-11-26 18:34:52 Formatting of this n ote [...] study and agree with the above report. [facility] 2022-11-03 11:00:00 Addended by: Gamal TSANG on: 11/06/2022 12:45 PM Modules accepted: Orders [facility] 2022-11-03 11:00:00 Addended by: AMY JOYNER on: 11/07/2022 10:48 AM Modules accepted: Level of Service [facility] 2022-11-03 11:00:00 Addended by: Gamal TSANG on: 11/09/2022 08:12 AM Modules accepted: Orders [facility] [place] 2021-08-24 20:32:00 [facility] OR A CAMPUS OF [facility] EMERGENCY PROVIDER REPORT REPORT#:[id number] REPORT STATUS: Signed DATE:08/24/21 TIME: 2031 PATIENT: JENN HORAN UNIT #: [id number] ROOM/BED: AGE: 36 SEX: F PCP PHYS: [...] positive for COVID. The patient took a [employer] issued home antigen test today which was [...] B/P 101/68 08/24 2002 B/P Mean 79 /2002 Temp 98.2 08/24 2002 Pulse 75 08/24 2002 Resp 18 08/24 2002 Last Documented: Result Date Time Pulse Ox 93 08/24 2002 B/P 101/68 08/24 2002 B/P Mean 79 /2002 Temp 98.2 08/24 2003 Pulse 75 06/2002 Resp 18 08/24 2002 Review of Vital [...] (Auto) (24 - 44 %) 20.7 L [place] % (Auto) (0.0 - 4.0 %) 11.4 [...] 1,000 ML X1ED STA 08/24 2016 DC / IV 08/24 Eye, Ear, Nose And Throat [...] B/P 101/68 08/24 2003 B/P Mean 79 08/24 2002 Temp 98.2 08/24 2002 Pulse 75 08/24 2002 Resp 18 08/24 2002 Last Documented: Result Date Time Pulse Ox 93 08/24 2002 B/P 101/68 08/24 2003 B/P Mean 79 08/24 2002 Temp 98.2 08/24 2002 Pulse 75 08/24 2002 Resp 18 08/24 2002 All vital signs available at the time of this entry have been reviewed. Clinical Impression Clinical Impression Primary Impression: COVID-19 Secondary Impressions: Angel disease Disposition Decision Discharge )( Discharged to Home Yes )( Time 2106 )( Date 08/24/21 Discharge/Care Plan Counseled Regarding [...] this week for recheck. at 0228 RPT #:[id number] [facility]
[2024-07-25] MEDS ORDERED: ONDANSETRON 4 MG/2 ML VIAL ONE (08:45)
[2024-07-25] MEDS ORDERED: NA CHLORIDE 0.9% 1,000 ML ONE (08:45)
[2024-07-25 09:06] LABS: Absolute Lymphocytes (CBC) 0.1 K/uL (0.7-4.9); Absolute Monocytes 0.3 K/uL (0.1-1.3); Absolute Neutrophil 5.4 K/uL (1.8-8.0); Basophils % 0.1 % (0-1.3); Eosinophils % 0.3 % (0-4.4); Hematocrit 39.8 % (36.0-45.0); Hemoglobin 13.7 g/dL (12.0-15.0); Lymphocytes % 1.9 % (15.3-44.8); MCH 29.8 pg (27.0-35.0); MCHC 34.3 g/dL (32.0-36.0); MCV 86.9 fL (80-100); MPV 8.5 fL (7.6-11.3); Monocytes % 5.4 % (3.3-12.3); Neutrophils % 92.3 % (41.7-73.7); Platelets 157 thou/uL (152-406); RBC Red Blood Cell Count 4.58 M/uL (3.86-4.86); Red Cell Distribution Width 13.9 % (12.1-15.2)
[2024-07-25 09:24] LABS: Albumin 3.8 g/dL (3.4-5.0); Albumin/Globulin Ratio 1.1 (1.1-1.8); Anion Gap 8.7 mEq/L (5.0-15.0); Bilirubin Total 0.8 mg/dL (0.2-1.0); Globulin 3.5 g/dL (2.3-3.5); Potassium 3.7 mEq/L (3.5-5.1); Protein, Total 7.3 g/dL (6.4-8.2)
--- NOTE | 2024-07-25 09:49 | RAD REPORT ---
EXAMINATION: Abdomen Pelvis W Contrast CLINICAL INDICATION: Female, 39 years old.ABD PAIN TECHNIQUE: CT abdomen and pelvis was performed, after the administration of IV contrast[facility]. Axial, sagittal and coronal reconstructions were obtained. One or more of the following dose reduction techniques were used: Automated exposure control, adjustment of the mA and/o r kV according to patient size, and/or iterative reconstruction. Unless otherwise specified, incidental findings do not require dedicated imaging follow-up. [id number]. COMPARISON: 04/12/2019 FINDINGS: LOWER CHEST: Dependent atelectasis. Small pericardial effusion. UPPER GI: No significant abnormality. LIVER: Hepatic steatosis, but otherwise unremarkable. GALLBLADDER/BILE DUCTS: Cholecystectomy. Mild extra-hepatic biliary ductal dilatation is likely relat ed to the post-cholecystectomy state. Consider correlating with LFT's.? PANCREAS: No mass, ductal dilation, or tee-pancreatic fluid. SPLEEN: Unremarkable. ADRENALS: No adrenal masses. KIDNEYS AND URETERS: No hydronephrosis.Low density and/or too small to characterize renal lesions whi ch are statistically benign.Nonobstructing renal calculi.No ureteral calculi. ABDOMINAL AORTA AND OTHER VESSELS: Normal caliber aorta and IVC. PERITONEUM: No abnormal free fluid. No free air. LYMPH NODES: No pathologic lymphadenopathy. ABDOMINAL WALL: Unremarkable SMALL BOWEL/COLON: Small bowel has normal course and caliber. No colonic wall thickening or pericolon ic inflammatory changes.Appendix absent. Liquid stool contents in the colon and small bowel noted.. URINARY BLADDER: Underdistended but grossly unremarkable. REPRODUCTIVE ORGANS: No pathologic process. MUSCULOSKELETAL: No acute or suspicious osseous abnormality. ADDITIONAL FINDINGS: None. IMPRESSION: No definite acute findings within the abdomen or pelvis. Colonic and small bowel fluid could represen t a mild enterocolitis or malabsorptive process.
--- NOTE | 2024-07-25 10:01 | EDPHYS ---
Physician Documentation [facility] Name: Jenn Horan Age: 39 yrs Sex: Female : 1985 Arrival Date: 07/25/2024 Time: 08:22 Bed 8 Private MD: ED Physician Jon Fernandez HPI: 07/25 10:04 This 39 yrs old Female presents to ER via EMS with complaints of Nausea/Vomiting. ms3 10:04 39-year-old female past medical history of asthma, cerebral palsy, erythromelalgia, ms3 GERD, hearing loss, POTS presents to the emergency department for nausea, vomiting, abdominal pain that began at 3 AM. EMS notes patient's heart rate to be 115, blood pressure 98/65. Patient denies any alleviating or inciting factors. Historical: - Allergies: 08:28 Biaxin; aa5 08:28 Cefaclor; aa5 08:28 Demerol; aa5 08:28 hydromorphone HCl; aa5 08:28 Morphine; aa5 08:28 NSAIDS (Non-Steroidal Anti-Inflammatory Drug); aa5 08:28 PENICILLINS; aa5 08:28 Azithromycin; aa5 08:28 Paxlovid; aa5 - PMHx: 08:28 Asthma; Cerebral Palsy; Erythromelalgia; GERD; Hearing Loss; Incomplete R BBB; POTS; aa5 reactive airway; - Immunization history:: Adult Immunizations unknown. - Infectious Disease History:: Denies. - Social history:: Smoking status: Patient denies any tobacco usage or history of. ROS: 10:04 Constitutional: Negative for fever, and chills. Cardiovascular: Negative for chest ms3 pain, and palpitations. Respiratory: Negative for shortness of breath, cough, wheezing, and pleuritic chest pain, 10:04 MS/Extremity: Negative for injury and deformity, Skin: Negative for injury, rash, and discoloration, 10:04 Abdomen/GI: Positive for nausea and vomiting, 10:04 Abdomen/GI: Positive for abdominal pain, Exam: 10:04 Constitutional: This is a well developed, well nourished patient who is awake, alert, ms3 and in no acute distress. Respiratory: Lungs have equal breath sounds bilaterally, clear to auscultation and percussion. No rales, rhonchi or wheezes noted. No increased work of breathing, no retractions or nasal flaring. Abdomen/GI: Soft, non-tender, with normal bowel sounds. No distension or tympany. No guarding or rebound. No evidence of tenderness throughout. Skin: Warm, dry with normal turgor. Normal color with no rashes, no lesions, and no evidence of cellulitis. MS/ Extremity: Pulses equal, no cyanosis. Neurovascular intact. Full, normal range of motion. 10:04 Cardiovascular: Rate: tachycardic, Heart sounds: normal, normal S1and S2, Vital Signs: 08:26 BP 105 / 72; Pulse 108; Resp 18 S; Temp 97.5(TE); Pulse Ox 98% on R/A; Weight 72.57 kg aa5 (R); Height 5 ft. 8 in. (R); 10:21 BP 92 / 55; Pulse 94; Resp 15; Pulse Ox 99% ; bp 08:26 Body Mass Index 24.33 (72.57 kg, 172.72 cm) aa5 MDM: 08:35 Medical Screening Exam initiated ms3 10:04 Differential diagnosis: Nonspecific abd pain, gastritis, cholecystitis, pancreatitis, ms3 viral gastroenteritis, gastroenteritis. Data reviewed: vital signs, nurses notes, lab test result(s), radiologic studies, and as a result, I will discharge patient. I considered the following discharge prescriptions or medication management in the emergency department Medications were administered in the Emergency Department. See MAR. Counseling: I had a detailed discussion with the patient and/or guardian regarding the historical points, exam findings, and any diagnostic results supporting the discharge/admit diagnosis, lab results, radiology results, the need for outpatient follow up, to return to the emergency department if symptoms worsen or persist or if there are any questions or concerns that arise at home. Special discussion: Based on the patient's Hx, exam, and Dx evaluation, there is no indication for emergent surgery or inpatient Tx. It is understood by the patient/guardian that if the Sx's persist or worsen they need to return immediately for re-evaluation. ED course: Discussed labs and CT images with patient and her mother. Patient to follow-up with primary care physician in 2 to 3 days. Patient and her mother understand and agree with plan. All questions were answered. Return precautions discussed include worsening symptoms, or any other concerns.. 07/25 08:29 Order name: CBC with Diff aa5 07/25 08:29 Order name: CMP; Complete Time: 09:53 aa5 07/25 08:29 Order name: Lipase; Complete Time: 09:53 aa5 07/25 08:35 Order name: Test, Serum; Complete Time: 09:53 ms3 07/25 08:35 Order name: CT Abd/Pelvis - IV Contrast Only; Complete Time: 09:53 ms3 07/25 08:29 Order name: IV Saline Lock; Complete Time: 08:49 aa5 07/25 08:29 Order name: Labs collected and sent; Complete Time: 08:49 aa5 Administered Medications: 08:49 Drug: NS 0.9% IV 1000 ml IV at 1 bolus Per protocol; to be given as a bolus over 60 aa5 minutes Route: IV; Rate: 1 bolus; Site: left upper arm; 10:22 Follow up: IV Status: Completed infusion bp 08:49 Drug: Ondansetron IVP 4 mg IVP once; over 2 minutes Route: IVP; Site: left upper arm; aa5 10:22 Follow up: Response: No adverse reaction bp Disposition Summary: 07/25/24 10:00 Discharge Ordered Notes: Location: Home ms3 Condition: Stable ms3 Diagnosis - Nausea with vomiting, unspecified ms3 - Abdominal pain, Generalized ms3 Followup: ms3 - With: Private Physician - When: 2 - 3 days - Reason: Recheck today's complaints Discharge Instructions: - Discharge Summary Sheet ms3 - Abdominal Pain, Adult ms3 - Nausea and Vomiting, Adult ms3 Forms: - Medication Reconciliation Form ms3 - Antibiotic Education ms3 - Prescription Opioid Use ms3 - Patient Portal Instructions ms3 - Leadership Thank You Letter ms3 Prescriptions: - ondansetron 4 mg Oral Tablet,disintegrating - take 1 tablet ORAL route every 8 hours as needed for nausea and vomiting; 15 ms3 tablet; Refills: 0, Product Selection Permitted Signatures: Dispatcher [facility] Aye Lin, RN RN aa5 Jon Fernandez DO DO ms3 Layton Grajeda RN bp Corrections: (The following items were deleted from the chart) 08:30 08:30 CBC+H.LAB.BRZ ordered. EDMS EDMS 08:30 08:30 COMPREHENSIVE METABOLIC PANEL+C.LAB.BRZ ordered. EDMS EDMS 08:30 08:30 LIPASE+C.LAB.BRZ ordered. EDMS EDMS
--- NOTE | 2024-07-25 10:01 | ER ---
Nurse's Notes [facility] Name: Jenn Horan Age: 39 yrs Sex: Female : 1985 Arrival Date: 07/25/2024 Time: 08:22 Bed 8 Private MD: Diagnosis: Nausea with vomiting, unspecified;Abdominal pain, Generalized Presentation: 07/25 08:26 Coronavirus screen: vomiting. Ebola Screen: Patient denies travel to an Ebola-affected [facility] area in the 21 days before illness onset. Initial Sepsis Screen: Does the patient meet any 2 criteria? HR > 90 bpm. Does the patient have a suspected source of infection? No. Patient's initial sepsis screen is negative. Risk Assessment: Do you want to hurt yourself or someone else? Patient reports no desire to harm self or others. Onset of symptoms was July 25, 2024. 08:26 Acuity: SVETLANA 3 [facility] 08:26 Method Of Arrival: EMS: [facility] 08:26 Chief complaint: EMS states: 6 vomiting episodes since 0300 today. aa5 Triage Assessment: 08:30 General: Appears in no apparent distress. comfortable, Behavior is calm, cooperative. bp Pain: Complains of pain in abdomen. EENT: No deficits noted. Neuro: No deficits noted. Cardiovascular: No deficits noted. Respiratory: No deficits noted. GI: Reports nausea, vomiting. : No signs and/or symptoms were reported regarding the genitourinary system. Derm: No deficits noted. Musculoskeletal: No deficits noted. Historical: - Allergies: 08:28 Biaxin; aa5 08:28 Cefaclor; aa5 08:28 Demerol; aa5 08:28 hydromorphone HCl; aa5 08:28 Morphine; aa5 08:28 NSAIDS (Non-Steroidal Anti-Inflammatory Drug); aa5 08:28 PENICILLINS; aa5 08:28 Azithromycin; aa5 08:28 Paxlovid; aa5 - PMHx: 08:28 Asthma; Cerebral Palsy; Erythromelalgia; GERD; Hearing Loss; Incomplete R BBB; POTS; aa5 reactive airway; - Immunization history:: Adult Immunizations unknown. - Infectious Disease History:: Denies. - Social history:: Smoking status: Patient denies any tobacco usage or history of. Screenin:26 [facility] ED Fall Risk Assessment (Adult) History of falling in the last 3 months, aa5 including since admission No falls in past 3 months (0 pts) Confusion or Disorientation No (0 pts) Intoxicated or Sedated No (0 pts) Impaired Gait Yes (1 pt) Mobility Assist Device Used Yes (1 pt) Altered Elimination Yes (1 pt) Score/Fall Risk Level 3 or more points = High Risk Oriented to surroundings, Maintained a safe environment, Educated pt \T\ family on fall prevention, incl call for assistance when getting out of bed, Assessed \T\ reinforced patient's understanding of fall precautions. Abuse screen: Denies threats or abuse. Nutritional screening: No deficits noted. Tuberculosis screening: No symptoms or risk factors identified. Assessment: 08:26 General: Appears uncomfortable, Behavior is calm, cooperative. Pain: Complains of pain aa5 in right upper quadrant, left upper quadrant, right lower quadrant and left lower quadrant. Neuro: Level of Consciousness is awake, alert, obeys commands, Oriented to person, place, time, situation. Cardiovascular: Patient's skin is warm and dry. Respiratory: Airway is patent Respiratory effort is even, unlabored, Respiratory pattern is regular, symmetrical. GI: Abdomen is round non-distended, Bowel sounds present X 4 quads. Abd is soft and non tender X 4 quads. Reports nausea, vomiting. : No signs and/or symptoms were reported regarding the genitourinary system. EENT: No signs and/or symptoms were reported regarding the EENT system. Derm: Skin is pink, warm \T\ dry. Musculoskeletal: Pt is ambulatory with walker at home, extremity contractures noted. 09:35 Reassessment: Pt to CT . aa5 Vital Signs: 08:26 BP 105 / 72; Pulse 108; Resp 18 S; Temp 97.5(TE); Pulse Ox 98% on R/A; Weight 72.57 kg aa5 (R); Height 5 ft. 8 in. (R); 10:21 BP 92 / 55; Pulse 94; Resp 15; Pulse Ox 99% ; bp 08:26 Body Mass Index 24.33 (72.57 kg, 172.72 cm) aa5 ED Course: 08:26 Patient arrived in ED. aa5 08:26 Arm band placed on. aa5 08:26 Patient has correct armband on for positive identification. Bed in low position. Call aa5 light in reach. Side rails up X2. Pulse ox on. NIBP on. 08:27 Triage completed. aa5 08:29 Aye Portillo, ELENA is Primary Nurse. aa5 08:35 Jon Fernandez DO is Attending Physician. ms3 08:45 by ED staff, sent to lab. Inserted saline lock: 22 gauge in left upper arm, using aa5 aseptic technique. Blood collected. Flushed with 10 mL NS IV inserted by Layton Grajeda RN. 09:20 Primary Nurse role handed off by Aye Portillo, ELENA tw7 09:24 Aye Portillo RN is Primary Nurse. aa5 09:42 CT Abd/Pelvis - IV Contrast Only In Process Unspecified. EDMS 10:21 No provider procedures requiring assistance completed. IV discontinued, intact, bp bleeding controlled, No redness/swelling at site. Pressure dressing applied. Administered Medications: 08:49 Drug: NS 0.9% IV 1000 ml IV at 1 bolus Per protocol; to be given as a bolus over 60 aa5 minutes Route: IV; Rate: 1 bolus; Site: left upper arm; 10:22 Follow up: IV Status: Completed infusion bp 08:49 Drug: Ondansetron IVP 4 mg IVP once; over 2 minutes Route: IVP; Site: left upper arm; aa5 10:22 Follow up: Response: No adverse reaction bp Medication: 08:50 VIS not applicable for this client. aa5 Outcome: 10:00 Discharge ordered by . ms3 10:21 Discharged to home via wheelchair, with family, bp 10:21 Condition: stable 10:21 Discharge instructions given to patient, family, Instructed on discharge instructions, follow up and referral plans. medication usage, Demonstrated understanding of instructions, follow-up care, medications, Prescriptions given X 1, 10:22 Patient left the ED. bp Signatures: Dispatcher [employer] EDMS Aye Portillo RN RN aa5 Layton Grajeda RN RN bp Jon Fernandez DO DO ms3 Musa Chen MD MD tw7 Corrections: (The following items were deleted from the chart) 08:57 08:26 [facility] ED Fall Risk Assessment (Adult) History of falling in the last 3 months, aa5 including since admission No falls in past 3 months (0 pts) Confusion or Disorientation No (0 pts) Intoxicated or Sedated No (0 pts) Impaired Gait No (0 pts) Mobility Assist Device Used No (0 pt) Altered Elimination Yes (1 pt) Score/Fall Risk Level 0 - 2 = Low Risk Oriented to surroundings, Maintained a safe environment, Educated pt \T\ family on fall prevention, incl call for assistance when getting out of bed, Assessed \T\ reinforced patient's understanding of fall precautions, aa5
[2024-07-25 11:20] VITALS: TEMP 97.5
[2024-07-25 11:22] VITALS: BP 92/55; O2SAT 99
[2024-07-25 12:39] LABS: Blood Morphology Comment NOT SEEN (NOT SEEN); Platelet Estimate ADEQ; White Blood Cell Scan OK (OK)
== END 2024-07-25 10:22 | disposition home or self-care (01) ==
LOC: ER 08:22
DX: R11.2 Nausea with vomiting, unspecified (principal); R10.84 Generalized abdominal pain; G80.9 Cerebral palsy, unspecified
CPT/HCPCS: 96361; 85025; 36415; 84703; 83690; 80053; 74177; 96374; 99284; Q9967; J2405; J7030

== ENCOUNTER 2024-12-27 10:28 | Emergency (ER) | payer MEDICAID ==
[2024-12-27] MEDS ORDERED: NA CHLORIDE 0.9% 1,000 ML ONE (11:08)
[2024-12-27 11:23] LABS: Absolute Lymphocytes (CBC) 0.8 K/uL (0.7-4.9); Hematocrit 40.1 % (36.0-45.0); Hemoglobin 13.4 g/dL (12.0-15.0); MCH 28.4 pg (27.0-35.0); MCHC 33.4 g/dL (32.0-36.0); MCV 84.9 fL (80-100); MPV 8.3 fL (7.6-11.3); Nucleated RBC Absolute Count 0.0 (0-0); Nucleated Red Blood Cells % 0.2 % (0-0); RBC Red Blood Cell Count 4.72 M/uL (3.86-4.86); White Blood Count 2.10 thou/uL (4.3-10.9)
[2024-12-27 11:47] LABS: ALT/SGPT 29.0 U/L (13-56); AST/SGOT 20.0 U/L (15-37); Albumin 3.7 g/dL (3.4-5.0); Albumin/Globulin Ratio 1.0 (1.1-1.8); Alkaline Phosphatase 79.0 U/L (45-117); Anion Gap 4.8 mEq/L (5.0-15.0); BUN Blood Urea Nitrogen 10.0 mg/dL (7-18); Bilirubin Indirect, Calculated 0.5 mg/dL (0.2-0.8); Globulin 3.6 g/dL (2.3-3.5); Glucose Level 80.0 mg/dL (74-106); Magnesium 2.1 mg/dL (1.6-2.4); NT PRO-BNP 63.0 pg/mL (<125); Potassium 3.8 mEq/L (3.5-5.1); Troponin High Sensitivity 3.6 pg/mL (<58.9)
[2024-12-27 12:17] LABS: Blood Morphology Comment NOT SEEN (NOT SEEN); White Blood Cell Scan OK (OK)
--- NOTE | 2024-12-27 13:47 | EDPHYS ---
Physician Documentation [facility] Name: Jenn Horan Age: 39 yrs Sex: Female : 1985 Arrival Date: 12/27/2024 Time: 10:28 Bed 14 Private MD: ED Physician Elizabeth Barrios HPI: 12/27 11:30 This 39 yrs old Female presents to ER via Wheelchair with complaints of Dizziness, sp3 Nausea. 11:30 39-year-old female history of Erythromelalgia, cerebral palsy, asthma, RBBB, POTS sp3 disease, now presents to the ED with chief complaint near syncope and nausea. Patient has had extensive cardiac workups in the past. Patient currently denies any shortness of breath, headache, fever abdominal pain, vomiting, diarrhea, full syncope, or any other signs or symptoms on ROS at this time. ROS, history and physical limited secondary to cerebral palsy. Limited items documented.. Historical: - Allergies: 10:51 Azithromycin; iw 10:51 Biaxin; iw 10:51 Cefaclor; iw 10:51 Demerol; iw 10:51 hydromorphone HCl; iw 10:51 Morphine; iw 10:51 NSAIDS (Non-Steroidal Anti-Inflammatory Drug); iw 10:51 Paxlovid; iw 10:51 PENICILLINS; iw - PMHx: 10:51 Erythromelalgia; Cerebral Palsy; Asthma; GERD; Hearing Loss; Incomplete R BBB; POTS; iw reactive airway; - PSHx: 10:51 Cholecystectomy; Appendectomy; hysterectomy; Tonsillectomy; iw - Immunization history:: Adult Immunizations up to date. - Infectious Disease History:: Denies. - Social history:: Smoking status: Patient denies any tobacco usage or history of. ROS: 11:31 Constitutional: Negative for fever, chills, and weight loss, Eyes: Negative for injury, sp3 pain, redness, and discharge, Neck: Negative for injury, pain, and swelling, Respiratory: Negative for shortness of breath, cough, wheezing, and pleuritic chest pain, Abdomen/GI: Negative for abdominal pain, nausea, vomiting, diarrhea, and constipation, Back: Negative for injury and pain, MS/Extremity: Negative for injury and deformity, Skin: Negative for injury, rash, and discoloration, 11:31 All other systems are negative, 11:31 Unable to obtain ROS due to Limited ROS due to cerebral palsy. However documented ROS consistent with her responses., Exam: 11:34 Constitutional: This is a well developed, well nourished patient who is awake, alert, sp3 and in no acute distress. Head/Face: Normocephalic, atraumatic. Eyes: Pupils equal round and reactive to light, extra-ocular motions intact. Lids and lashes normal. Conjunctiva and sclera are non-icteric and not injected. Cornea within normal limits. Periorbital areas with no swelling, redness, or edema. ENT: Nares patent. No nasal discharge, no septal abnormalities noted. External auditory canals are clear. Oropharynx with no redness, swelling, or masses, exudates, or evidence of obstruction, uvula midline. Mucous membranes moist. Neck: Trachea midline, no thyromegaly or masses palpated, and no cervical lymphadenopathy. Supple, full range of motion without nuchal rigidity, or vertebral point tenderness. No Meningismus. Chest/axilla: Normal chest wall appearance and motion. Nontender with no deformity. No lesions are appreciated. Cardiovascular: Regular rate and rhythm with a normal S1 and S2. No gallops, murmurs, or rubs. Normal PMI, no JVD. No pulse deficits. Respiratory: Lungs have equal breath sounds bilaterally, clear to auscultation and percussion. No rales, rhonchi or wheezes noted. No increased work of breathing, no retractions or nasal flaring. Abdomen/GI: Soft, non-tender, with normal bowel sounds. No distension or tympany. No guarding or rebound. No evidence of tenderness throughout. Back: No spinal tenderness. No costovertebral tenderness. Full range of motion. Skin: Warm, dry with normal turgor. Normal color with no rashes, no lesions, and no evidence of cellulitis. MS/ Extremity: Pulses equal, no cyanosis. Neurovascular intact. Full, normal range of motion. 11:34 Neuro: Limited neuroexam. However grossly no deficits. Family member states she is at her baseline. Speech at baseline as well., 11:40 ECG was reviewed by the Attending Physician. EKG demonstrates normal sinus rhythm at 70 sp3 bpm with a first-degree AV block with NM interval 222, QTc 443, leftward axis, poor R wave progression and nonspecific diffuse ST/T changes without evidence of acute ischemia. Vital Signs: 10:51 BP 101 / 62; Pulse 79; Resp 16; Temp 98.4; Pulse Ox 100% on R/A; Weight 70.31 kg; iw Height 5 ft. 8 in. ; 11:40 BP 106 / 51; Pulse 71; Resp 16; Pulse Ox 98% ; os 11:41 BP 105 / 52; Pulse 68; Resp 15; Pulse Ox 98% on R/A; os 10:51 Body Mass Index 23.57 (70.31 kg, 172.72 cm) iw MDM: 10:58 Medical Screening Exam initiated sp3 11:35 Data reviewed: vital signs, nurses notes, old medical records, lab test result(s), EKG, sp3 radiologic studies. ED course: 39-year-old female with near syncope and nausea. Differential diagnosis includes pots disease, dehydration, viral illness, ACS, among others. Workup will include EKG, routine labs, and IV hydration. Disposition pending workup and patient course.. 13:46 ED course: Patient feeling better after IV fluids. Upon further questioning patient sp3 does endorse vertigo symptoms with room spinning. We will discharge patient on meclizine as well and instructions for aggressive p.o. hydration for desired urine output.. 12/27 10:59 Order name: Basic Metabolic Panel; Complete Time: 12:23 sp3 12/27 10:59 Order name: CBC with Diff; Complete Time: 12:23 sp3 12/27 10:59 Order name: LFT's; Complete Time: 12:23 sp3 12/27 10:59 Order name: Magnesium; Complete Time: 12:23 sp3 12/27 10:59 Order name: NT PRO-BNP; Complete Time: 12:23 sp3 12/27 10:59 Order name: Troponin HS; Complete Time: 12:23 sp3 12/27 11:40 Order name: CBC Smear Scan; Complete Time: 12:23 EDMS 12/27 10:59 Order name: Cardiac monitoring; Complete Time: 11:36 sp3 12/27 10:59 Order name: EKG - Nurse/Tech; Complete Time: 11:36 sp3 12/27 10:59 Order name: IV Saline Lock; Complete Time: 11:16 sp3 12/27 10:59 Order name: Labs collected and sent; Complete Time: 11:16 sp3 12/27 10:59 Order name: O2 Per Protocol; Complete Time: 11:17 sp3 12/27 10:59 Order name: O2 Sat Monitoring; Complete Time: 11:17 sp3 12/27 10:59 Order name: Orthostatics; Complete Time: 11:36 sp3 Administered Medications: 11:35 Drug: NS 0.9% IV 1000 ml IV at 1 bolus Per protocol; to be given as a bolus over 60 os minutes Route: IV; Rate: 1 bolus; Site: left antecubital; Disposition Summary: 12/27/24 13:47 Discharge Ordered Notes: Location: Home sp3 Condition: Stable sp3 Diagnosis - Near syncope, vertigo sp3 Followup: sp3 - With: Private Physician - When: Upon discharge from the Emergency Department - Reason: Recheck today's complaints, Continuance of care Discharge Instructions: - Discharge Summary Sheet sp3 - Near-Syncope sp3 - Vertigo sp3 Forms: - Medication Reconciliation Form sp3 - Antibiotic Education sp3 - Prescription Opioid Use sp3 - Patient Portal Instructions sp3 - Leadership Thank You Letter sp3 Prescriptions: - Meclizine 25 mg Oral Tablet - take 1 tablet ORAL route every 8 hours As needed; 30 tablet; Refills: 0, sp3 Product Selection Permitted Signatures: Dispatcher [employer] Mary Lopez, ELENA PARKER iw Elizabeth Barrios MD MD sp3 Elvis Luna RN RN os Corrections: (The following items were deleted from the chart) 10:59 10:59 BASIC METABOLIC PANEL+C.LAB.BRZ ordered. EDMS EDMS 10:59 10:59 CBC+H.LAB.BRZ ordered. EDMS EDMS 10:59 10:59 HEPATIC FUNCTION+C.LAB.BRZ ordered. EDMS EDMS 10:59 10:59 MAGNESIUM+C.LAB.BRZ ordered. EDMS EDMS 10:59 10:59 PROBNP+C.LAB.BRZ ordered. EDMS EDMS 10:59 10:59 Troponin High Sensitivity+C.LAB.BRZ ordered. EDMS EDMS 14:17 14:17 PMHx: POTS "when having an infection"; os os
--- NOTE | 2024-12-27 13:47 | ER ---
Nurse's Notes [facility] Name: Jenn Horan Age: 39 yrs Sex: Female : 1985 Arrival Date: 12/27/2024 Time: 10:28 Bed 14 Private MD: Diagnosis: Near syncope, vertigo Presentation: 12/27 10:49 Chief complaint: Parent and/or Guardian states: past 2 days and 3 nights she has not iw slept, she has a hx of POTS but has been off meds , she says that she feels palpitations X 2 days , she is feeling dizzy when she stands like she is going to pass out. Coronavirus screen: At this time, the client does not indicate any symptoms associated with coronavirus-19. Ebola Screen: No symptoms or risks identified at this time. Initial Sepsis Screen: Does the patient meet any 2 criteria? No. Patient's initial sepsis screen is negative. Does the patient have a suspected source of infection? No. Patient's initial sepsis screen is negative. Risk Assessment: Do you want to hurt yourself or someone else? Patient reports no desire to harm self or others. Onset of symptoms was December 24, 2024. 10:49 Acuity: SVETLANA 3 iw 10:49 Method Of Arrival: Wheelchair iw Triage Assessment: 11:43 General: Appears in no apparent distress. comfortable, well groomed, Behavior is calm, os cooperative, appropriate for age. Pain: Complains of pain in mid-sternal area Cardiovascular: No deficits noted. Respiratory: No deficits noted. GI: No deficits noted. GI: No deficits noted. 14:17 GI: Reports. os Historical: - Allergies: 10:51 Azithromycin; iw 10:51 Biaxin; iw 10:51 Cefaclor; iw 10:51 Demerol; iw 10:51 hydromorphone HCl; iw 10:51 Morphine; iw 10:51 NSAIDS (Non-Steroidal Anti-Inflammatory Drug); iw 10:51 Paxlovid; iw 10:51 PENICILLINS; iw - PMHx: 10:51 Erythromelalgia; Cerebral Palsy; Asthma; GERD; Hearing Loss; Incomplete R BBB; POTS; iw reactive airway; - PSHx: 10:51 Cholecystectomy; Appendectomy; hysterectomy; Tonsillectomy; iw - Immunization history:: Adult Immunizations up to date. - Infectious Disease History:: Denies. - Social history:: Smoking status: Patient denies any tobacco usage or history of. Screenin:[address] [facility] ED Fall Risk Assessment (Adult) History of falling in the last 3 months, os including since admission No falls in past 3 months (0 pts) Confusion or Disorientation No (0 pts) Intoxicated or Sedated Yes (3 pts) Impaired Gait Yes (1 pt) Mobility Assist Device Used Yes (1 pt) Altered Elimination Yes (1 pt) Score/Fall Risk Level 3 or more points = High Risk Oriented to surroundings, Maintained a safe environment, Educated pt \\T\\ family on fall prevention, incl call for assistance when getting out of bed. Abuse screen: Denies threats or abuse. Nutritional screening: No deficits noted. Tuberculosis screening: No symptoms or risk factors identified. Assessment: 14:15 Reassessment: Patient appears in no apparent distress at this time. No changes from os previously documented assessment. 14:15 GI: Abdomen is non-distended. os Vital Signs: 10:51 BP 101 / 62; Pulse 79; Resp 16; Temp 98.4; Pulse Ox 100% on R/A; Weight 70.31 kg; iw Height 5 ft. 8 in. ; 11:40 BP 106 / 51; Pulse 71; Resp 16; Pulse Ox 98% ; os 11:41 BP 105 / 52; Pulse 68; Resp 15; Pulse Ox 98% on R/A; os 10:51 Body Mass Index 23.57 (70.31 kg, 172.72 cm) iw ED Course: 10:33 Patient arrived in ED. cj3 10:33 Elizabeth Barrios MD is Attending Physician. sp3 10:51 Triage completed. iw 11:15 Basic Metabolic Panel Sent. os 11:15 CBC with Diff Sent. os 11:15 LFT's Sent. os 11:15 Magnesium Sent. os 11:15 NT PRO-BNP Sent. os 11:15 Troponin HS Sent. os 11:17 Initial lab(s) drawn, by ED staff, sent to lab. Inserted saline lock: 20 gauge in left ts3 antecubital area, using aseptic technique. Blood collected. Flushed with 10 mL NS. 14:15 Arm band placed on right wrist. os 14:15 Patient has correct armband on for positive identification. Fall risk band placed. Bed os in low position. Call light in reach. Side rails up X 1. Side rails up X2. Provided Education on: . 14:16 No provider procedures requiring assistance completed. IV discontinued. os Administered Medications: 11:35 Drug: NS 0.9% IV 1000 ml IV at 1 bolus Per protocol; to be given as a bolus over 60 os minutes Route: IV; Rate: 1 bolus; Site: left antecubital; Medication: 14:17 VIS not applicable for this client. os Outcome: 13:47 Discharge ordered by MD. ewing 14:16 Discharged to home via wheelchair, os 14:16 Condition: improved 14:16 Discharge instructions given to patient, family, Instructed on discharge instructions, follow up and referral plans. medication usage, Demonstrated understanding of instructions, follow-up care, medications, 14:18 Patient left the ED. os Signatures: Mary Alex, RN RN iw Elizabeth Barrios MD MD sp3 Elvis Luna RN RN os Radha Albarran 3 Alyx Kinney ts3 Corrections: (The following items were deleted from the chart) 14:17 14:17 PMHx: POTS "when having an infection"; os os
[2024-12-27 14:35] VITALS: TEMP 98.4
[2024-12-27 14:36] VITALS: O2SAT 98
[2024-12-27 14:37] VITALS: BP 105/52
== END 2024-12-27 14:18 | disposition home or self-care (01) ==
LOC: ER 10:28
DX: R55 Syncope and collapse (principal); R42 Dizziness and giddiness; R11.0 Nausea; G80.9 Cerebral palsy, unspecified
CPT/HCPCS: 93005; 85025; 80048; 36415; 83735; 80076; 84484; 83880; 99284; J7030